=== PATIENT | male | born 1950 | race Caucasian/White ===

== ENCOUNTER 2024-02-03 02:43 | Emergency (ER) | payer MEDICARE, SELFPAY ==
[2024-02-03 02:49] VITALS: BP 176/97; PULSE 85; RESP 20; TEMP 36.7; O2SAT 97
--- NOTE | 2024-02-03 03:00 | ED.NECK1 ---
HPI - Neck Pain/Injury General Chief Complaint: Neck Pain/Injury Stated Complaint: NECK PAIN Time Seen by Provider: 02/03/24 02:50 Source: patient Mode of arrival: walk-in History of Present Illness HPI Narrative: Patient woke with left sided neck pain 3 days ago and it has steadily been worsening ever since. No fall or injury. The pain got worse around 7pmlast night when he turned his head to the left. Pain is worse when he turns to that side. No relief with aspirin and Aleve use. No fever or chills. No cough. No UE tingling or radiation of pain. Related Data Home Medications Medication Instructions Recorded Confirmed hydrocortisone-acetic acid 1 %-2 % drp otic (ear) 02/03/24 ear drops irbesartan 300 mg tablet mg 02/03/24 pantoprazole 40 mg tablet,delayed mg PO 02/03/24 release pravastatin 40 mg tablet mg 02/03/24 tamsulosin 0.4 mg capsule mg PO 02/03/24 temazepam 15 mg capsule mg 02/03/24 Previous Rx's Medication Instructions Recorded methocarbamol 750 mg tablet 750 mg PO Q6H PRN pain #30 tabs 02/03/24 methylprednisolone 4 mg tablets in 4 mg PO DAILY #21 ea 02/03/24 a dose pack (Medrol (Paras)) Allergies Allergy/AdvReac Type Severity Reaction Status Date / Time Sulfa (Sulfonamide Allergy Unknown Verified 02/03/24 02:49 Antibiotics) [facility] Social History Smoking status: Former smoker Exam Narrative Exam Narrative: Nurses notes and vital signs reviewed and patient is not hypoxic. afebrile General: Well-appearing and in no apparent distress. Skin: Warm, dry, no pallor noted. No rash. Head: Normocephalic, atraumatic. Neck: Supple, no cervical lymphadenopathy. Soft tissue tenderness to the left posterolateral neck. Pain is worse with the patient turns to the left Cardiovascular: Regular Rate and Rhythm without murmur, gallop or rub. Respiratory: No accessory muscle use or respiratory distress. Lungs are clear to auscultation, no wheezing, rales or rhonchi Back: No midline thoracic vertebral tenderness. Musculoskeletal: normal ROM Neurological: A&O x4. No cranial nerve dysfunction observed. No truncal ataxia. Moves all extremities. Sensation intact. Psychiatric: Cooperative and interactive. Normal mood and affect. Constitutional Vital Signs, click to edit/add: Last Vital Signs Temp 98.1 F 02/03/24 02:49 Pulse 85 02/03/24 02:49 Resp 20 02/03/24 02:49 BP 176/97 H 02/03/24 02:49 Pulse Ox 97 02/03/24 02:49 O2 Del Method Room Air 02/03/24 02:49 Course Vital Signs Vital signs: Vital Signs Temperature 98.1 F 02/03/24 02:49 Pulse Rate 85 02/03/24 02:49 Respiratory Rate 20 02/03/24 02:49 Blood Pressure 176/97 H 02/03/24 02:49 Pulse Oximetry 97 02/03/24 02:49 Oxygen Delivery Method Room Air 02/03/24 02:49 Temperature 98.1 F 02/03/24 02:49 Pulse Rate 85 02/03/24 02:49 Respiratory Rate 20 02/03/24 02:49 Blood Pressure 176/97 H 02/03/24 02:49 Pulse Oximetry 97 02/03/24 02:49 Oxygen Delivery Method Room Air 02/03/24 02:49 MDM - Neck Pain/Injury MDM Narrative Medical decision making narrative: patient has torticolis. Patient given IM Solumedrol and IM Toradol. Discharged home with prescription for Medrol dose pack and Robaxin. Discharge Plan Discharge Stand Alone Forms: Portal Instructions Chief Complaint: Neck Pain/Injury Clinical Impression: Acute torticollis Patient Disposition: Home, Self-Care Time of Disposition Decision: 03:04 Prescriptions / Home Meds: New methylprednisolone [Medrol (Paras)] 4 mg tablets,dose pack 4 mg PO DAILY Qty: 21 0RF Rx Instructions: follow dosing instructions on packaging methocarbamol 750 mg tablet 750 mg PO Q6H PRN (Reason: pain) Qty: 30 0RF No Action pravastatin 40 mg tablet tamsulosin 0.4 mg capsule PO pantoprazole 40 mg tablet,delayed release (DR/EC) PO irbesartan 300 mg tablet temazepam 15 mg capsule hydrocortisone-acetic acid 1-2 % drops OTIC (EAR) Instructions: Spasmodic Torticollis (ED)
[2024-02-03] MEDS: METHYLPREDNISOLONE SOD SUCC PF 125 MG/2 ML VIAL IM (03:38)
[2024-02-03] MEDS: KETOROLAC TROMETHAMINE 60 MG/2 ML VIAL IM (03:38)
== END 2024-02-03 03:45 | disposition home or self-care (01) ==
LOC: ER 03:11
PROVIDERS: Emergency Provider Emergency Medicine; PCP Family Medicine
DX: M43.6 Torticollis (principal); Z79.899 Other long term (current) drug therapy; Z87.891 Personal history of nicotine dependence
CPT/HCPCS: 96372; 99284; J2930

== ENCOUNTER 2024-02-28 13:50 | Outpatient (REF) | payer MEDICARE, SELFPAY | END 2024-02-28 13:51 | disposition home or self-care (01) | LOC: LAB 13:50 | PROVIDERS: PCP Family Medicine; Visit Provider Surgery | DX: C44.219 Basal cell carcinoma of skin of left ear and external auricular canal (principal) | CPT/HCPCS: 88305 ==

== ENCOUNTER 2024-03-01 11:56 | Outpatient (OUT) | payer MEDICARE, SELFPAY ==
--- NOTE | 2024-03-01 12:06 | XR_ITS ---
The [address] [address] Patient Name: RANJIT CORTÉS MRN: [id number] date: 1950 Sex: M Assigned Patient Location: LAB Current Patient Location: Accession/Order Number: [id number] Exam Date: 03/01/2024 12:10 Report Date: 03/02/2024 07:25 At the request of: TESS FUENTES Procedure: XR cervical spine 2-3V EXAMINATION: XR cervical spine 2-3V HISTORY: Impingement syndrome of left shoulder M75.42 ; left side cervical pain COMPARISON: No relevant comparison available. FINDINGS: BONES: Moderate degenerative facet arthropathy throughout the cervical spine, left side slightly greater than right. No fracture or spondylolisthesis. DISC SPACES: Moderate-marked narrowing C5-6, C6-7. Posterior disc osteophyte complex at C5-6 likely causing foramen and central canal narrowing. PARASPINOUS: Negative. No paraspinous abnormality is seen. OTHER: Negative. XR/XR cervical spine 2-3V IMPRESSION: 1. Moderate to marked degenerative changes of cervical spine. 2. No appreciable acute abnormality. Electronically authenticated by: SOL HAINES Date: 03/02/2024 07:25
[2024-03-01 12:32] LABS: Anion Gap 14.4; Calcium 9.6 mg/dL (8.5-10.1); Carbon Dioxide 27.2 mmol/L (21.0-32.0); Chloride 105 mmol/L (98-107); Estimated GFR (African America 52 (>=60); Estimated GFR (Non-African Ame 43 (>=60); Glucose 99 mg/dL (74-106); Potassium 4.6 mmol/L (3.5-5.1); Sodium 142 mmol/L (136-145)
== END 2024-03-01 11:57 | disposition home or self-care (01) ==
LOC: LAB 11:57
PROVIDERS: PCP Family Medicine; Visit Provider Family Medicine
DX: M75.42 Impingement syndrome of left shoulder (principal); N18.2 Chronic kidney disease, stage 2 (mild); M50.30 Other cervical disc degeneration, unspecified cervical region
CPT/HCPCS: 36415; 72040; 80048

== ENCOUNTER 2024-03-05 10:15 | Outpatient (OUT) | payer MEDICARE, SELFPAY ==
--- NOTE | 2024-03-05 10:18 | US_ITS ---
[address] [address] Patient Name: RANJIT CORTÉS MRN: [id number] date: 1950 Sex: M Assigned Patient Location: US Current Patient Location: US Accession/Order Number: [id number] Exam Date: 03/05/2024 10:19 Report Date: 03/05/2024 10:48 At the request of: TESS FUENTES Procedure: US renal bladder EXAMINATION: US renal bladder HISTORY: Blood In Urine R31.9 COMPARISON: No relevant comparison available. TECHNIQUE: Ultrasound examination was performed of the bladder. FINDINGS: Right Kidney: Normal in size, contour and cortical echotexture. No solid cortical mass, hydronephrosis or obstructing nephrolithiasis. The cortex measures 1.3 cm. Height: 5.3 cm Length: 11.3 cm Width: 6.8 cm Left Kidney: Normal in size, contour and cortical echotexture. No solid cortical mass, hydronephrosis or obstructing nephrolithiasis. The cortex measures 1.0 cm Height: 5.2 cm Length: 10.5 cm Width: 4.5 cm Urinary bladder: Prevoid volume 294 mL. Post void volume 2 mL Ureteral jets: Visualized bilaterally US/US renal bladder IMPRESSION: No acute abnormality. No explanation for the patient's hematuria Electronically authenticated by: JONAH GERMAN Date: 03/05/2024 10:48
== END 2024-03-05 10:16 | disposition home or self-care (01) ==
LOC: US 10:15
PROVIDERS: PCP Family Medicine; Visit Provider Family Medicine
DX: R31.9 Hematuria, unspecified (principal)
CPT/HCPCS: 76770

== ENCOUNTER 2024-03-06 08:10 | Outpatient (OUT) | payer MEDICARE, SELFPAY ==
--- NOTE | 2024-03-06 08:17 | MR_ITS ---
[address] [address] Patient Name: RANJIT CORTÉS MRN: [id number] date: 1950 Sex: M Assigned Patient Location: MRI Current Patient Location: MRI Accession/Order Number: [id number] Exam Date: 03/06/2024 08:50 Report Date: 03/06/2024 14:24 At the request of: TESS FUENTES Procedure: MR cervical spine wo con EXAMINATION: MR cervical spine wo con HISTORY: Abnormal Finding On Diagnotic Imaging R93.89 COMPARISON: Plain x-ray TECHNIQUE: A variety of imaging planes and parameters were utilized for visualization of suspected pathology. FINDINGS: Limited exam. Alternate coil was used due to patient claustrophobia CRANIOCERVICAL AREA: Normal foramen magnum with no Chiari malformation. PARASPINAL AREA: Normal with no visible mass. BONES: Normal alignment with no acute fracture or spondylolisthesis. Mild to moderate diffuse degenerative spondylosis. No bone edema CORD: Normal caliber, contour, and signal intensity. CERVICAL DISC LEVELS: C2-C3: No significant disc/facet abnormality, spinal stenosis, or foraminal stenosis. C3-C4: Disc desiccation. Mild to moderate disc/osteophyte complex. No central canal or right foraminal stenosis. Mild narrowing of the left neural foramen C4-C5: Disc space narrowing. Disc/osteophyte complex most significant in the left neural foramen. Facet osteophyte arthropathy. No central or foraminal stenosis C5-C6: Moderate disc space narrowing. Moderate disc/osteophyte complex and facet osteoarthropathy. No central canal stenosis. Moderate to severe right and moderate left foraminal stenosis C6-C7: Moderate disc space narrowing. Moderate disc/osteophyte complex and facet osteoarthropathy. Narrowing of the central canal to 7.6 mm. Moderate bilateral foraminal stenosis C7-T1:. Early degenerative disc disease is present without focal protrusion or neural impingement. MR/MR cervical spine wo con IMPRESSION: Degenerative changes most significant at C5-6 and C6-C7 where there is central and foraminal stenosis as detailed above Electronically authenticated by: JONAH GERMAN Date: 03/06/2024 14:24
== END 2024-03-06 08:11 | disposition home or self-care (01) ==
LOC: MRI 08:10
PROVIDERS: PCP Family Medicine; Visit Provider Family Medicine
DX: R93.89 Abnormal findings on diagnostic imaging of other specified body structures (principal)
CPT/HCPCS: 72141

== ENCOUNTER 2024-03-07 10:44 | Outpatient (OUT) | payer MEDICARE, SELFPAY ==
[2024-03-07 11:27] LABS: Bilirubin Urine NEGATIVE (NEGATIVE); Blood Urine TRACE-I (NEGATIVE); Clarity Urine CLEAR (CLEAR); Color Urine YELLOW (YELLOW); Glucose Urine UA NEGATIVE (NEGATIVE); Ketones Urine NEGATIVE (NEGATIVE); Leukocyte Esterase Urine NEGATIVE (NEGATIVE); Nitrite Urine NEGATIVE (NEGATIVE); Protein Urine NEGATIVE (NEG/TRACE); Urobilinogen Urine 0.2 EU/dL (0.2-1.0)
== END 2024-03-07 10:45 | disposition home or self-care (01) ==
LOC: LAB 10:46
PROVIDERS: PCP Family Medicine; Visit Provider Family Medicine
DX: R31.9 Hematuria, unspecified (principal)
CPT/HCPCS: 81003

== ENCOUNTER 2024-03-09 06:55 | Outpatient (RCR) | payer MEDICARE, SELFPAY | END 2024-04-12 16:45 | disposition home or self-care (01) | LOC: PT 06:55 | PROVIDERS: PCP Family Medicine; Visit Provider Family Medicine | DX: R93.89 Abnormal findings on diagnostic imaging of other specified body structures (principal); R29.3 Abnormal posture | CPT/HCPCS: 97012; 97161 ==

== ENCOUNTER 2024-04-11 07:07 | Outpatient (OUT) | payer MEDICARE, SELFPAY ==
--- OUTSIDE RECORDS SUMMARY | 2024-04-11 07:11 | XMS_ITS | CCD ---
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 Immunizations Vaccine Date Status influenza virus vaccine, inactivated 08/2023 Recorded SARS-CoV-2 (COVID-19) mRNAMUL.ORD![id number] 09/24/2022 Recorded influenza virus vaccine, inactivated 08/31/2022 Recorded SARSCoV2 mRNA([id number]) vac 03/29/2022 Recorded SARS-CoV-2 (COVID-19) Ad26 vaccine 09/2021 Recorded SARS-CoV-2 (COVID-19) mRNA-1273 vaccine 09/13/2021 Recorded SARS-CoV-2 (COVID-19) Ad26 vaccine 02/2021 Recorded SARS-CoV-2 (COVID-19) mRNA-1273 vaccine 02/04/2021 Recorded SARS-CoV-2 (COVID-19) Ad26 vaccine 01/2021 Recorded SARS-CoV-2 (COVID-19) mRNA-1273 vaccine 01/07/2021 Recorded influenza virus vaccine, inactivated 09/03/2020 Recorded influenza virus vaccine, inactivated 09/04/2019 Recorded influenza virus vaccine, inactivated 08/22/2018 Recorded influenza virus vaccine, inactivated 08/24/2017 Recorded pneumococcal 23-valent vaccine 08/21/2017 Recorded pneumococcal 23-valent vaccine 08/01/2017 Recorded pneumococcal 23-valent vaccine 06/27/2017 Recorded influenza virus vaccine, inactivated 09/09/2016 Recorded [facility] Comment on above: Result Comment: Elec tronically Signed By: EVETTE RILEY, Obey Castañeda\.br\Date and Time Signed: 03/12/24 07:55 EDT Ambulatory Visit Summaryon 0 03-06-2024 Ambulatory Visit Summary LÓPEZ CORTÉS :1950 Visit Date:03/06/2024 Ambulatory Visit Instructions Your Care Team Attending Physician - EVETTE RILEY, Obey Castañeda Primary Care Physician - Tess Fuentes MD This Is Your Medications List irbesartan (irbesartan 300 mg Tab) pantoprazole (Pantoprazole [address] Tab) pravastatin (pravastatin 40 mg Tab) tadalafil (tadalafil 10 mg Tab) temazepam (temazepam 15 mg Cap) Procedures Performed Arthroscopic knee operation (04/26/2019), Colonoscopy (2016), Arthroplasty of knee, Arthroscopy, shoulder, surgical; with rotator cuff repair, Cholecystectomy;, hemorrhoidectomy, Meniscal repair, Revision of knee arthroplasty, Tendon sheath incision (eg, for trigger finger). Medications What How Much When Instructions Unchanged irbesartan (irbesartan 300 mg Tab) 1 Tablets By Mouth Every day Unchanged pantoprazole (Pantoprazole [address] Tab) 1 Tablets By Mouth Every day Unchanged pravastatin (pravastatin 40 mg Tab) 1 Tablets By Mouth Every day Unchanged tadalafil (tadalafil 10 mg Tab) See instructions Take as needed for sex Unchanged temazepam (temazepam 15 mg Cap) By Mouth Once a day (at bedtime) Allergies sulfamethoxazole (Unknown) Problems Ongoing - Any problem that you are currently receiving treatment for. 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 Cellulitis 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 Injury of kidney Lower back pain Skin foreign body Subconjunctival hemorrhage Patient Survey You may receive a survey via text or e-mail asking about your office visit. Please share your experience with us by completing your survey. We appreciate your feedback and thank you for choosing us for your care. [facility] Pathology Noteon 03-02-2024 Pathology Note [id number]#[id number] [facility] Ambulatory Visit Summaryon 0 02-28-2024 Ambulatory Visit Summary LÓPEZ CORTÉS :1950 Visit Date:02/28/2024 Ambulatory Visit Instructions Your Care Team Attending Physician - EVETTE RILEY, Obey Castañeda Primary Care Physician - Tess Fuentes MD This Is Your Medications List irbesartan (irbesartan 300 mg Tab) pantoprazole (Pantoprazole [address] Tab) pravastatin (pravastatin 40 mg Tab) tadalafil (tadalafil 10 mg Tab) temazepam (temazepam 15 mg Cap) Procedures Performed Arthroscopic knee operation (04/26/2019), Colonoscopy (2016), Arthroplasty of knee, Arthroscopy, shoulder, surgical; with rotator cuff repair, Cholecystectomy;, hemorrhoidectomy, Meniscal repair, Revision of knee arthroplasty, Tendon sheath incision (eg, for trigger finger). What to do next Scheduled Follow-Up Appointments Tuesday 2:40 PM EDT With: EVETTE RILEY, Obey Castañeda Where: General Surgery Evette/Carina Orell[facility] General Surgery Office/Clini c Noteon 02-28-2024 General Surgery Office/Clinic Note Chief Complaint in-office excisional biopsy HPI Staff Presents for in-office excisional biopsy left ear. History of Present Illness here for excisional biopsy of nonhealing left ear lesion; scab came off today, still irritated; no bleeding. Review of Systems ROS - Provider Constitutional: no fever, no sweats, no weight loss. Eyes: no glasses, no blurred vision, no visual loss. ENMT: no dentures, no hoarseness, no swallowing difficulties, no hearing loss, no ear infection(s), no nose bleeds. Cardiovascular: normal blood pressure, no chest pain, regular heartbeat, no heart murmur. Respiratory: no shortness of breath, no cough, no asthma, no wheezing. Gastrointestinal: no nausea, no vomiting, no diarrhea, no constipation, no blood in stool, no change in bowel habits, no abdominal pain, no hepatitis. Genitourinary: no kidney stones, no urine infection, no dysuria. Musculoskeletal: no pain, no weakness. Skin: no changing moles, no rash, yes skin lumps. Neurologic: no seizures, no epilepsy, no headache. Psychiatric: no emotional or psychiatric problem. Heme/Lymph: no bleeding problems, no anemia, no blood clots, no transfusions. Allergy/Immunologic: no swollen lymph nodes/glands, no IV drug abuse. Other: Additional ROS info: Except as noted in the above Review of Systems and in the History of Present Illness, all other systems have been reviewed and are negative or noncontributory. Physical Exam left ear with 5 mm oblong area of raised, scaly skin, no ulceration or bleeding. Procedure patient brought to the procedure room, placed in supine position, area prepped and draped in sterile fashion; anesthetized with 1/2 % Marcaine ; lesion excised in elliptical fashion down to subcutaneous fat; closed with interrupted 5-0 nylon sutures; tolerated well; ebl < 3 ml; sterile dressing applied. Assessment/Plan 1. 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 Follow-up No qualifying data available Problem List/Past Medical History Ongoing Arthritis Atrophic testicle Barretts esophagus BMI 36.0-36.9,adult BPH (benign prostatic hyperplasia) Chronic kidney disease COPD, mild ED (erectile dysfunction) GERD (gastroesophageal reflux disease) Glaucoma Hypercholesteremia Hypertension Insomnia Left renal mass Migraine Morbid obesity Neoplasm of uncertain behavior of skin of ear Nocturia Osteoarthritis Peripheral neuropathy Renal hematoma, left SCC (squamous cell carcinoma), hand Historical Cellulitis 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 Injury of kidney Lower back pain Skin foreign body Subconjunctival hemorrhage Procedure/Surgical History Arthroscopic knee operation (04/26/2019), Colonoscopy (2015), Arthroplasty of knee, Arthroscopy, shoulder, surgical; with rotator cuff repair, Cholecystectomy;, hemorrhoidectomy, Meniscal repair, Revision of knee arthroplasty, Tendon sheath incision (eg, for trigger finger). Medications irbesartan 300 mg Tab, 300 mg= 1 tab(s), Oral, Daily Pantoprazole [address] Tab, 40 mg= 1 tab(s), Oral, Daily, 3 refills pravastatin 40 mg Tab, 40 mg= 1 tab(s), Oral, Daily tadalafil 10 mg Tab, See Instructions, PRN, 5 refills temazepam 15 mg Cap, Oral, Once a day (at bedtime) Allergies sulfamethoxazole (Unknown) Social History Alcohol - Denies Alcohol Use, 01/31/2024 Substance Abuse - Denies Substance Abuse, 01/31/2024 Tobacco Former smoker, quit more than 30 days ago Tobacco Use:. Never Smokeless Tobacco Use:. Cigarettes, 1 per day. Started age 19.0 Years. Stopped age 31 Years., 01/31/2024 Family History CVA: Mother. Immunizations Vaccine Date Status influenza virus vaccine, inactivated 08/2023 Recorded SARS-CoV-2 (COVID-19) [id number].ORD![id number] 09/24/2022 Recorded influenza virus vaccine, inactivated 08/31/2022 Recorded SARSCoV2 mRNA(gsfazfaqn-gnba-jghzak) vac 03/29/2022 Recorded SARS-CoV-2 (COVID-19) Ad26 vaccine 09/2021 Recorded SARS-CoV-2 (COVID-19) mRNA-1273 vaccine 09/13/2021 Recorded SARS-CoV-2 (COVID-19) Ad26 vaccine 02/2021 Recorded SARS-CoV-2 (COVID-19) mRNA-1273 vaccine 02/04/2021 Recorded SARS-CoV-2 (COVID-19) Ad26 vaccine 01/2021 Recorded SARS-CoV-2 (COVID-19) mRNA-1273 vaccine 01/07/2021 Recorded influenza virus vaccine, inactivated 09/03/2020 Recorded influenza virus vaccine, inactivated 09/04/2019 Recorded influenza virus vaccine, inactivated 08/22/2018 Recorded influenza virus vaccine, inactivated 08/24/2017 Recorded pneumococcal 23-valent vaccine 08/21/2017 Recorded pneumococcal 23-valent vaccine 08/01/2017 Recorded pneumococcal 23-valent vaccine 06/27/2017 Recorded influenza virus vaccine, inactivated 09/09/2016 Recorded [facility] Comment on above: Result Comment: Elec tronically Signed By: EVETTE RILEY, Obey Castañeda\.br\Date and Time Signed: 02/28/24 14:02 EDT Ambulatory Visit Summaryon 0 01-31-2024 Ambulatory Visit Summary PROSPER CORTÉSSyd Moreno :1950 Visit Date:01/31/2024 Ambulatory Visit Instructions Your Care Team Attending Physician - Obey ALAS MD Primary Care Physician - Tess Fuentes MD Referring Physician - Tess Fuentes MD This Is Your Medications List Contact prescribing physician if questions or concerns irbesartan (irbesartan 300 mg Tab) pantoprazole (Pantoprazole [address] Tab) pravastatin (pravastatin 40 mg Tab) tadalafil (tadalafil 10 mg Tab) temazepam (temazepam 15 mg Cap) Procedures Performed Arthroscopic knee operation (04/26/2019), Colonoscopy (2015), Arthroplasty of knee, Arthroscopy, shoulder, surgical; with rotator cuff repair, Cholecystectomy;, hemorrhoidectomy, Meniscal repair, Revision of knee arthroplasty, Tendon sheath incision (eg, for trigger finger). Discharge Vitals Heart Rate (Peripheral) 83 Respiratory Rate 16 Blood Pressure 120/82 Height 172 cm Height 68 in Weight 106.9 kg Weight 235.18 lb BMI 36.13 Medications What How Much When Instructions Unchanged irbesartan (irbesartan 300 mg Tab) 1 Tablets By Mouth Every day Contact prescribing physician if questions or concerns Unchanged pantoprazole (Pantoprazole [address] Tab) 1 Tablets By Mouth Every day Contact prescribing physician if questions or concerns Unchanged pravastatin (pravastatin 40 mg Tab) 1 Tablets By Mouth Every day Contact prescribing physician if questions or concerns Unchanged tadalafil (tadalafil 10 mg Tab) See instructions Take as needed for sex Contact prescribing physician if questions or concerns Unchanged temazepam (temazepam 15 mg Cap) By Mouth Once a day (at bedtime) Contact prescribing physician if questions or concerns Allergies sulfamethoxazole (Unknown) Problems Ongoing - Any problem that you are currently receiving treatment for. Arthritis Atrophic testicle Barretts esophagus BMI 36.0-36.9,adult BPH (benign prostatic hyperplasia) Chronic kidney disease COPD, mild ED (erectile dysfunction) GERD (gastroesophageal reflux disease) Glaucoma Hypercholesteremia Hypertension Insomnia Left renal mass Migraine Morbid obesity Nocturia Osteoarthritis Peripheral neuropathy Renal hematoma, left SCC (squamous cell carcinoma), hand Historical - Any problem that you are no longer receiving treatment for. Cellulitis 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 Injury of kidney Lower back pain Skin foreign body Subconjunctival hemorrhage Patient Survey You may receive a survey via text or e-mail asking about your office visit. Please share your experience with us by completing your survey. We appreciate your feedback and thank you for choosing us for your care. [facility] Physician Referralon 024 Physician Referral [id number]#[id number] [facility] Physician Referralon 024 Physician Referral [id number]#[id number] [facility] Screenson 05-17-2023 Screens [id number]:127 [facility] Ambulatory Visit Summaryon 0 05-16-2023 Ambulatory Visit Summary LÓPEZ CORTÉS :1950 Visit Date:05/16/2023 Ambulatory Visit Instructions Your Diagnosis Left renal mass Atrophic testicle ED (erectile dysfunction) BPH (benign prostatic hyperplasia) Your Care Team Attending Physician - Darwin RICHMOND MD Primary Care Physician - Tess Fuentes MD This Is Your Medications List Contact prescribing physician if questions or concerns aspirin doxazosin (doxazosin 4 mg oral tablet) lisinopril (lisinopril 10 mg Tab) pantoprazole (Pantoprazole [address] Tab) pravastatin (pravastatin 40 mg Tab) sumatriptan tadalafil (tadalafil 10 mg Tab) temazepam (temazepam 15 mg Cap) Procedures Performed Arthroscopy, shoulder, surgical; with rotator cuff repair, Cholecystectomy;, hemorrhoidectomy, Repair of knee joint, Tendon sheath incision (eg, for trigger finger). Discharge Vitals Heart Rate (Peripheral) 75 Respiratory Rate 16 Blood Pressure 129/75 Height 172 cm Height 68 in Weight 104.7 kg Weight 230.34 lb BMI 35.39 What to do next You Need to Schedule the Following Appointments Follow Up with ISABEL RILEY, Darwin Moreno, JOSELYN When: Where: [facility] [employer] [address] [place] [address] [id number]- Medications What How Much When Instructions Unchanged aspirin 81 Milligram By Mouth Every day Contact prescribing physician if questions or concerns Unchanged doxazosin (doxazosin 4 mg oral tablet) 1 Tablets By Mouth Every day Contact prescribing physician if questions or concerns Unchanged lisinopril (lisinopril 10 mg Tab) By Mouth Every day Contact prescribing physician if questions or concerns Unchanged pantoprazole (Pantoprazole [address] Tab) 1 Tablets By Mouth Every day Contact prescribing physician if questions or concerns Unchanged pravastatin (pravastatin 40 mg Tab) 1 Tablets By Mouth Every day Contact prescribing physician if questions or concerns Unchanged sumatriptan 100 Milligram By Mouth Contact prescribing physician if questions or concerns Unchanged tadalafil (tadalafil 10 mg Tab) See instructions Take as needed for sex Contact prescribing physician if questions or concerns Unchanged temazepam (temazepam 15 mg Cap) By Mouth Once a day (at bedtime) Contact prescribing physician if questions or concerns Allergies penicillin (Rash) sulfamethoxazole (Unknown) Problems Ongoing - Any problem that you are currently receiving treatment for. Arthritis Atrophic testicle Barretts esophagus BMI 32.0-32.9,adult BPH (benign prostatic hyperplasia) Cellulitis COPD, mild ED (erectile dysfunction) 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 GERD (gastroesophageal reflux disease) Glaucoma Hypercholesteremia Hypertension Injury of kidney Left renal mass Lower back pain Migraine Nocturia Osteoarthritis Renal hematoma, left SCC (squamous cell carcinoma), hand Subconjunctival hemorrhage Historical - Any problem that you are no longer receiving treatment for. Skin foreign body [employer] Erectile Dysfunction Erectile dysfunction (ED) is the inability to get or keep an erection in order to have sexual intercourse. ED is considered a symptom of an underlying disorder and is not considered a disease. ED may include: ? Inability to get an erection. ? Lack of enough hardness of the erection to allow penetration. ? Loss of erection before sex is finished. What are the causes? This condition may be caused by: ? Physical causes, such as: ? Artery problems. This may include heart disease, high blood pressure, atherosclerosis, and diabetes. ? Hormonal problems, such as low testosterone. ? Obesity. ? Nerve problems. This may include back or pelvic injuries, multiple sclerosis, Parkinson's disease, spinal cord injury, and stroke. ? Certain medicines, such as: ? Pain relievers. ? Antidepressants. ? Blood pressure medicines and water pills (diuretics). ? Cancer medicines. ? Antihistamines. ? Muscle relaxants. ? Lifestyle factors, such as: ? Use of drugs such as marijuana, cocaine, or opioids. ? Excessive use of alcohol. ? Smoking. ? Lack of physical activity or exercise. ? Psychological causes, such as: ? Anxiety or stress. ? Sadness or depression. ? Exhaustion. ? Fear about sexual performance. ? Guilt. What are the signs or symptoms? Symptoms of this condition include: ? Inability to get an erection. ? Lack of enough hardness of the erection to allow penetration. ? Loss of the erection before sex is finished. ? Sometimes having normal erections, but with frequent unsatisfactory episodes. ? Low sexual satisfaction in either partner due to erection problems. ? A curved penis occurring with erection. The curve may cause pain, or the penis may be too curved to allow for intercourse. ? Never having nighttime or morning erections. How is this diagnosed? This condition is ofte (more content not included)... [facility] Patient Educationon 05-16-20 Patient Education Urology Erectile Dysfunction Erectile dysfunction (ED) is the inability to get or keep an erection in order to have sexual intercourse. ED is considered a symptom of an underlying disorder and is not considered a disease. ED may include: ? Inability to get an erection. ? Lack of enough hardness of the erection to allow penetration. ? Loss of erection before sex is finished. What are the causes? This condition may be caused by: ? Physical causes, such as: ? Artery problems. This may include heart disease, high blood pressure, atherosclerosis, and diabetes. ? Hormonal problems, such as low testosterone. ? Obesity. ? Nerve problems. This may include back or pelvic injuries, multiple sclerosis, Parkinson's disease, spinal cord injury, and stroke. ? Certain medicines, such as: ? Pain relievers. ? Antidepressants. ? Blood pressure medicines and water pills (diuretics). ? Cancer medicines. ? Antihistamines. ? Muscle relaxants. ? Lifestyle factors, such as: ? Use of drugs such as marijuana, cocaine, or opioids. ? Excessive use of alcohol. ? Smoking. ? Lack of physical activity or exercise. ? Psychological causes, such as: ? Anxiety or stress. ? Sadness or depression. ? Exhaustion. ? Fear about sexual performance. ? Guilt. What are the signs or symptoms? Symptoms of this condition include: ? Inability to get an erection. ? Lack of enough hardness of the erection to allow penetration. ? Loss of the erection before sex is finished. ? Sometimes having normal erections, but with frequent unsatisfactory episodes. ? Low sexual satisfaction in either partner due to erection problems. ? A curved penis occurring with erection. The curve may cause pain, or the penis may be too curved to allow for intercourse. ? Never having nighttime or morning erections. How is this diagnosed? This condition is often diagnosed by: ? Performing a physical exam to find other diseases or specific problems with the penis. ? Asking you detailed questions about the problem. ? Doing tests, such as: ? Blood tests to check for diabetes mellitus or high cholesterol, or to measure hormone levels. ? Other tests to check for underlying health conditions. ? An ultrasound exam to check for scarring. ? A test to check blood flow to the penis. ? Doing a sleep study at home to measure nighttime erections. How is this treated? This condition may be treated by: ? Medicines, such as: ? Medicine taken by mouth to help you achieve an erection (oral medicine). ? Hormone replacement therapy to replace low testosterone levels. ? Medicine that is injected into the penis. Your health care provider may instruct you how to give yourself these injections at home. ? Medicine that is delivered with a short applicator tube. The tube is inserted into the opening at the tip of the penis, which is the opening of the urethra. A tiny pellet of medicine is put in the urethra. The pellet dissolves and enhances erectile function. This is also called MUSE (medicated urethral system for erections) therapy. ? Vacuum pump. This is a pump with a ring on it. The pump and ring are placed on the penis and used to create pressure that helps the penis become erect. ? Penile implant surgery. In this procedure, you may receive: ? An inflatable implant. This consists of cylinders, a pump, and a reservoir. The cylinders can be inflated with a fluid that helps to create an erection, and they can be deflated after intercourse. ? A semi-rigid implant. This consists of two silicone rubber rods. The rods provide some rigidity. They are also flexible, so the penis can both curve downward in its normal position and become straight for sexual intercourse. ? Blood vessel surgery to improve blood flow to the penis. During this procedure, a blood vessel from a different part of the body is placed into the penis to allow blood to flow around (bypass) damaged or blocked blood vessels. ? Lifestyle changes, such as exercising more, losing weight, and quitting smoking. Follow these instructions at home: Medicines ? Take bynt-mya-kqrhosd and prescription medicines only as told by your health care provider. Do not increase the dosage without first discussing it with your health care provider. ? If you are using self-injections, do injections as directed by your health care provider. Make sure you avoid any veins that are on the surface of the penis. After giving an injection, apply pressure to the injection site for 5 minutes. ? Talk to your health care provider about how to prevent headaches while taking ED medicines. These medicines may cause a sudden headache due to the increase in blood flow in your body. General instructions ? Exercise regularly, as directed by your health care provider. Work with your health care provider to lose weight, if needed. ? Do not use any products that contain nicotine or tobacco. These products include cig (more content not included)... [facility] Urology Office/Clinic Noteon 05-16-2023 Urology Office/Clinic Note Chief Complaint Pt is here for yearly f/u HPI Staff 1 year follow up w/Renal US. Renal US DONE 01/12/23. Previous DX: BPH, ED, left renal mass, nocturia, renal hematoma-left. *Doxazosin 4mg qd. No Urological surgeries. Pt did not give urine sample today. Dysuria: No Incomplete bladder emptying: No Hematuria: No Frequency: No Urgency: No Nocturia: states he gets up 1-2 times per night - depends on how much water he drinks Stream: Good Post void dripping: mild at the end of his stream - he states very little History of Present Illness Tests reviewed: reviewed DEVON I have reviewed the previous health record information and history for this patient from Dr. Richmond. I have reviewed and verified the staff HPI to be accurate for this encounter. There have been no associated fever, chills, flank pain, or blood in the urine. Denies any urinary infections since last encounter. Review of Systems PHQ Score Initial Depression Screen Score: 0 ROS - Provider Constitutional: denies weight loss, denies hot flashes. Eyes: denies eye problems. Gastrointestinal: denies nausea, denies vomiting. Cardiovascular: denies chest pain or angina. Integumentary: no dryness Musculoskeletal: denies musculoskeletal symptoms. ENMT: denies otolaryngeal symptoms. Respiratory: no shortness of breath. Heme/Lymph: denies easy bleeding tendency, denies easy bruising tendency. Psychiatric: no confusion, no anxiety. Genitourinary: denies dysuria, denies hematuria, denies discharge, denies urinary frequency, denies urinary hesitancy, denies nocturia, denies incontinence, denies genital sores, denies decreased libido, and denies erectile dysfunction. Physical Exam Vitals & Measurements HR: 75(Peripheral) RR: 16 BP: 129/75 HT: 68 in HT: 172 cm WT: 104.7 kg WT: 230.34 lb BMI: 35.39 General Appearance: alert, no distress, well nourished, well developed male. Assessment/Plan 1. Left renal mass (N28.89: Other specified disorders of kidney and ureter) Pt's Renal US shows that area on Lt Kidney is smaller than it was in 2020. Most likely a hematoma due to fall. DEVON 01/13/23 - Negative. Follow up as needed. Pt understands and agrees with plan. 2. Atrophic testicle (N50.0: Atrophy of testis) Pt's Scrotal US shows Rt testicle that is smaller than Lt. Pt states he has no symptoms. 3. ED (erectile dysfunction) (N52.9: Male erectile dysfunction, unspecified) Pt states that ED medication is working well. Will continue Tadalafil 10mg PRN 4. BPH (benign prostatic hyperplasia) (N40.0: Benign prostatic hyperplasia without lower urinary tract symptoms) Pt is on Doxazosin 4mg qd from PCP due to HTN but it is helping with urinary issues. IPSS 3 No UA given today. Advised pt to call our office if he sees any visible blood in his urine. Pt understands. Overall the patient is doing well. He is seen no gross blood or clots in the urine. The previously noted abnormality in the left kidney has essentially disappeared. He most likely had a hematoma in the area from his fairly recent fall. He continues on tadalafil at 10 mg on a as needed basis. PCP manages his alpha blockers. At this point I feel he can see me on a as needed basis and knows to call for any gross blood or clots in the urine. Follow-up With When Contact Information ISABEL RILEY, Darwin Moreno, URL [address] [facility] [address] [place], [place] [id number]- Additional Instructions: PRN Patient Education Erectile Dysfunction I, Irena Thomas, personally scribed for Dr. Richmond on 05/16/2023 10:13:20. . Documentation recorded by the scribe, Irena Thomas, accurately reflects the services(s) I performed and decisions made by me. Authenticated by Dr. Richmond on 05/16/2023 10:49:01. 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 Medications aspirin, 81 mg, Oral, Daily doxazosin 4 mg oral tablet, 4 mg= 1 tab(s), Oral, Daily lisinopril 10 mg Tab, Oral, Daily Pantoprazole [address] Tab, 40 mg= 1 tab(s), Oral, Daily, 3 refills pravastatin 40 mg Tab, 40 mg= 1 tab(s), Oral, Daily sumatriptan, 100 mg, Oral tadalafil 10 mg Tab, See Instructions, PRN, 5 refills temazepam 15 mg Cap, Oral, Once a day (at bedtime) Allergies penicillin (Rash) samayoa (more content not included)... Normal [facility] Comment on above: Result Comment: Elec tronically Signed By: Darwin RICHMOND MD\.br\Date and Time Signed: 05/16/23 10:49 EDT\.br\Electronically Co-Signed By: Irena Thomas\.br\Date and Time Co-Signed: 05/16/23 10:13 EDT INSULINon 01-28-2023 Insulin 15.8 uIU/mL Normal 2.6-24.9 [facility] Comment on above: Performed By: #### I NSULIN #### [facility] [address] [address] [address] Braulio Fritz CBC AUTO DIFFon 01-27-2023 BASO # 0.0 103/ul Normal 0.0-0.1 [facility] Comment on above: Performed By: #### I NSULIN #### [facility] [address] [address] [address] Braulio Fritz Basophils/100 WBC (Bld) 0.5 % Normal 0.2-2.0 [facility] Comment on above: Performed By: #### I NSULIN #### [facility] [address] [place] [address] Dr. Braulio Fritz EO # 0.3 103/ul Normal 0.0-0.7 [facility] Comment on above: Performed By: #### I NSULIN #### [facility] [address] [place] [address] Dr. Braulio Fritz Eosinophils/100 WBC (Bld) 3.2 % Normal 0.9-7.0 [facility] Comment on above: Performed By: #### I NSULIN #### [facility] [address] [place] [address] Dr. Braulio Fritz Erythrocyte distribution width (RBC) [Ratio] 14.8 % Normal 11.0-15.0 [facility] Comment on above: Performed By: #### I NSULIN #### [facility] [address] [place] [address] Dr. Braulio Fritz Hematocrit (Bld) [Volume fraction] 48.1 % Normal 42.0-54.0 [facility] Comment on above: Performed By: #### I NSULIN #### [facility] [address] [place] [address] Dr. Braulio Fritz Hemoglobin (Bld) [Mass/Vol] 16.1 g/dL Normal 14.0-18.0 [facility] Comment on above: Performed By: #### I NSULIN #### [facility] [address] [place] [address] Dr. Braulio Fritz IG # 0.05 10e3/ul Critically high 0.00-0.03 [facility] Comment on above: Performed By: #### I NSULIN #### [facility] [address] [place] [address] Dr. Braulio Fritz IG % 0.6 % Critically high 0.0-0.5 [facility] Comment on above: Performed By: #### I NSULIN #### [facility] [address] [place] [address] Dr. Braulio Fritz LYMPH # 2.2 103/ul Normal 1.2-3.8 [facility] Comment on above: Performed By: #### I NSULIN #### [facility] [address] [address] [address] Braulio Fritz Lymphocytes/100 WBC (Bld) 25.7 % Normal 20.5-60.0 [facility] Comment on above: Performed By: #### I NSULIN #### [facility] [address] [place] [address] Dr. Braulio Fritz MANUAL DIFF REQ NO Normal [facility] Comment on above: Performed By: #### I NSULIN #### [facility] [address] [place] [address] Dr. Braulio Fritz MCH (RBC) [Entitic mass] 31.7 pg Normal 25.9-34.0 [facility] Comment on above: Performed By: #### I NSULIN #### [facility] [address] [place] [address] Dr. Braulio Fritz MCHC (RBC) [Mass/Vol] 33.5 g/dL Normal 29.9-35.2 [facility] Comment on above: Performed By: #### I NSULIN #### [facility] [address] [place] [address] Dr. Braulio Fritz MCV (RBC) [Entitic vol] 94.7 fL Critically high 80.0-94.0 [facility] Comment on above: Performed By: #### I NSULIN #### [facility] [address] [place] [address] Dr. Braulio Fritz MONO # 0.9 103/ul Critically high 0.3-0.8 [facility] Comment on above: Performed By: #### I NSULIN #### [facility] [address] [place] [address] Dr. Braulio Fritz Monocytes/100 WBC (Bld) 10.5 % Normal 1.7-12.0 [facility] Comment on above: Performed By: #### I NSULIN #### [facility] [address] [place] [address] Dr. Braulio Fritz NEUT # 5.1 103/ul Normal 1.4-6.5 [facility] Comment on above: Performed By: #### I NSULIN #### [facility] [address] [address] [address] Braulio Fritz Neutrophils/100 WBC (Bld) 59.5 % Normal 43.0-75.0 [facility] Comment on above: Performed By: #### I NSULIN #### [facility] [address] [address] [address] Braulio Fritz Platelet mean volume (Bld) [Entitic vol] 10.5 fL Normal 9.5-13.5 [facility] Comment on above: Performed By: #### I NSULIN #### [facility] [address] [address] [address] Braulio Fritz PLT 187 103/ul Normal 150-450 [facility] Comment on above: Performed By: #### I NSULIN #### [facility] [address] [place] [address] Dr. Braulio Fritz RBC 5.08 106/ul Normal 4.70-6.10 [facility] Comment on above: Performed By: #### I NSULIN #### [facility] [address] [place] [address] Dr. Braulio rFitz WBC 8.5 103/ul Normal 4.0-11.0 [facility] Comment on above: Performed By: #### I NSULIN #### [facility] [address] [place] [address] Dr. Braulio Fritz FREE THYROXINE INDEX T7on FTI 2.39 Normal 1.30-4.50 [facility] Comment on above: Performed By: #### I NSULIN #### [facility] [address] [place] [address] Dr. Braulio Fritz T3U 38.0 % Normal 33.0-40.0 [facility] Comment on above: Performed By: #### I NSULIN #### [facility] [address] [place] [address] Dr. Braulio Fritz T4 [Mass/Vol] 6.30 ug/dL Normal 4.50-12.10 [facility] Comment on above: Performed By: #### I NSULIN #### [facility] [address] [address] [address] Brualio Fritz GLYCOHEMOGLOBIN A1Con 2022 ADA RECOMMENDATION SEE BELOW Normal [facility] Comment on above: Result Comment: ADA RECOMMENDED LIMIT 4.0 - 6.0 ADA THERAPEUTIC TARGET < 7.0 ACTION SUGGESTED > 7.0 Performed By: #### A 1C #### [facility] [address] [place] [address] Dr. Braulio Fritz Glucose [Mass/Vol] 111 mg/dL Normal [facility] Comment on above: Performed By: #### A 1C #### [facility] [address] [place] [address] Dr. Braulio Fritz HbA1c (Bld) [Mass fraction] 5.5 % Normal 4.5-6.2 [facility] Comment on above: Performed By: #### A 1C #### [facility] [address] [place] [address] Dr. Braulio Fritz LIPID PROFILEon 01-27-2023 CHOL-HDL RATIO NORM SEE BELOW Normal [facility] Comment on above: Result Comment: 3.3 - 4.4 LOW RISK 4.4 - 7.1 AVERAGE RISK 7.1 - 11.0 MODERATE RISK >11.0 HIGH RISK Performed By: #### I NSULIN #### [facility] [address] [place] [address] Dr. Braulio Fritz Cholesterol [Mass/Vol] 162 mg/dL Normal <=200 [facility] Comment on above: Performed By: #### I NSULIN #### [facility] [address] [place] [address] Dr. Braulio Fritz Cholesterol in HDL [Mass/Vol] 48 mg/dL Normal 40-60 [facility] Comment on above: Performed By: #### I NSULIN #### [facility] [address] [place] [address] Dr. Braulio Fritz Cholesterol in LDL [Mass/Vol] 91.6 mg/dL Normal [facility] Comment on above: Performed By: #### I NSULIN #### [facility] [address] [place] [address] Dr. Braulio Fritz Cholesterol.total/C holesterol in HDL [Mass ratio] 3.4 {ratio} Normal [facility] Comment on above: Performed By: #### I NSULIN #### [facility] [address] [address] [address] Braulio Fritz HDL NORMAL > or = 60 mg/dl - LO W CARDIOVASCULAR RISK <40 mg/dl - HIGH CARDIOVASCULAR RISK Normal [facility] Comment on above: Performed By: #### I NSULIN #### [facility] [address] [address] [address] Braulio Fritz LDL CALC NORMAL SEE BELOW Normal [facility] Comment on above: Result Comment: <100 mg/dl OPTIMAL 100 - 129 mg/dl NEAR OR ABOVE OPTIMAL 130 - 159 mg/dl BORDERLINE HIGH 160 - 189 mg/dl HIGH >190 mg/dl VERY HIGH Performed By: #### I NSULIN #### [facility] [address] [place] [address] Dr. Braulio Fritz Triglyceride [Mass/Vol] 112 mg/dL Normal <=150 [facility] Comment on above: Performed By: #### I NSULIN #### [facility] [address] [address] [address] Braulio Fritz VLDL CALC 22.4 mg/dL Normal [facility] Comment on above: Performed By: #### I NSULIN #### [facility] [address] [place] [address] Dr. Braulio Fritz PROF 14(COMP METB)on 023 Albumin [Mass/Vol] 3.6 g/dL Normal 3.4-5.0 [facility] Comment on above: Performed By: #### I NSULIN #### [facility] [address] [place] [address] Dr. Braulio Fritz Albumin/Globulin [Mass ratio] 1.1 {ratio} Normal [facility] Comment on above: Performed By: #### I NSULIN #### [facility] [address] [place] [address] Dr. Braulio Fritz ALP [Catalytic activity/Vol] 111 U/L Normal 46-116 [facility] Comment on above: Performed By: #### I NSULIN #### [facility] [address] [address] [address] Braulio Fritz ALT [Catalytic activity/Vol] 31 U/L Normal 16-63 [facility] Comment on above: Performed By: #### I NSULIN #### [facility] [address] [address] [address] Braulio Fritz Anion gap [Moles/Vol] 12.6 mmol/L Normal [facility] Comment on above: Performed By: #### I NSULIN #### [facility] [address] [address] [address] Braulio Fritz AST [Catalytic activity/Vol] 23 U/L Normal 15-37 [facility] Comment on above: Performed By: #### I NSULIN #### [facility] [address] [place] [address] Dr. Braulio Fritz Bilirubin [Mass/Vol] 1.7 mg/dL Critically high 0.2-1.0 [facility] Comment on above: Performed By: #### I NSULIN #### [facility] [address] [place] [address] Dr. Braulio Fritz Calcium [Mass/Vol] 9.1 mg/dL Normal 8.5-10.1 [facility] Comment on above: Performed By: #### I NSULIN #### [facility] [address] [place] [address] Dr. Braulio Fritz Chloride [Moles/Vol] 107 mmol/L Normal 98-107 [facility] Comment on above: Performed By: #### I NSULIN #### [facility] [address] [place] [address] Dr. Braulio Fritz CO2 [Moles/Vol] 28.7 mmol/L Normal 21.0-32.0 [facility] Comment on above: Performed By: #### I NSULIN #### [facility] [address] [address] [address] Braulio Fritz Creatinine [Mass/Vol] 1.41 mg/dL Critically high 0.70-1.30 [facility] Comment on above: Performed By: #### I NSULIN #### [facility] [address] [address] [address] Braulio Fritz EGFR-AF CONGOLESE 60 mL/min/1.73m2 Normal >=60 [facility] Comment on above: Performed By: #### I NSULIN #### [facility] [address] [address] [address] Braluio Fritz EGFR-NON AF CONGOLESE 49 mL/min/1.73m2 Critically low >=60 [facility] Comment on above: Performed By: #### I NSULIN #### [facility] [address] [address] [address] Braulio Fritz Globulin (S) [Mass/Vol] 3.2 g/dL Normal [facility] Comment on above: Performed By: #### I NSULIN #### [facility] [address] [address] [address] Brauloi Fritz Glucose [Mass/Vol] 95 mg/dL Normal 74-106 [facility] Comment on above: Performed By: #### I NSULIN #### [facility] [address] [address] [address] Braulio Fritz Potassium [Moles/Vol] 4.3 mmol/L Normal 3.5-5.1 [facility] Comment on above: Performed By: #### I NSULIN #### [facility] [address] [address] [address] Braulio Fritz Protein [Mass/Vol] 6.8 g/dL Normal 6.4-8.2 [facility] Comment on above: Performed By: #### I NSULIN #### [facility] [address] [address] [address] Braulio Fritz Sodium [Moles/Vol] 144 mmol/L Normal 136-145 [facility] Comment on above: Performed By: #### I NSULIN #### [facility] [address] [address] [address] Braulio Fritz Urea nitrogen [Mass/Vol] 24.0 mg/dL Critically high 7.0-18.0 [facility] Comment on above: Performed By: #### I NSULIN #### [facility] [address] [place] [address] Dr. Braulio Fritz Urea nitrogen/Creatinine [Mass ratio] 17.0 mg/mg Normal [facility] Comment on above: Performed By: #### I NSULIN #### [facility] [address] [place] [address] Dr. Brualio Fritz SED RATE WESTERGRENon 2022 SED RATE 19 mm/hr Normal <=20 [facility] Comment on above: Performed By: #### I NSULIN #### [facility] [address] [place] [address] Dr. Braulio Fritz TSHon 01-27-2023 TSH 0.882 uIU/mL Normal 0.358-3.740 [facility] Comment on above: Performed By: #### I NSULIN #### [facility] [address] [place] [address] Dr. Braulio Fritz URIC ACID SERUMon 01-27-2023 Urate [Mass/Vol] 7.3 mg/dL Critically high 3.5-7.2 [facility] Comment on above: Performed By: #### I NSULIN #### [facility] [address] [place] [address] Dr. Braulio Fritz VITAMIN D 25 OHon 01-27-2023 VIT D 25-OH 44.5 ng/mL Normal [facility] Comment on above: Performed By: #### P SASC, VITAD #### [facility] [address] [place] [address] Dr. Braulio Fritz VIT D RANGES SEE BELOW Normal [facility] Comment on above: Result Comment: <20 ng/mL Vit D deficient 20 - <30 ng/mL Vit D insufficient 30 - 100 ng/mL Vit D sufficient >100 ng/mL Potential Toxicity Performed By: #### P SASC, VITAD #### [facility] [address] [place] [address] Dr. Braulio Fritz T4 LABCORPon 04-16-2022 T4 [Mass/Vol] 6.6 ug/dL Normal 4.5-12.0 [facility] Comment on above: Performed By: #### I NSULIN #### [facility] [id number] Braulio Fritz NM STRESS/REST MULTIon 04-15 NM STRESS/REST MULTI Patient: LÓEPZ CORTÉS Exam Date: 04/15/2022 : 1950 Gender:M Ordering : DR TESS FUENTES . Admission #: [id number] Family : Order #: [id number] CLICK HERE TO VIEW EXAM RADIOLOGY REPORT PROCEDURE: RADIONUCLIDE IMAGING STRESS/REST MULTI COMPARISON: NM STRESS/REST MULTI, 03/11/2021. INDICATIONS: Dyspnea TECHNIQUE: Exam Description: Stress/Rest one day protocol gated SPECT Rest Imagin.2 mCi Tc-99m Cardiolite IV on 04/15/2022 Stress Imaging 30.2 mCi Tc-99m Cardiolite IV on 04/15/2022 Exercise Protocol: Carlos Heart Rate (bpm): Rest: 73 Max: 131 PMHR: 87 Blood Pressure: Rest: 146/98 Max: 168/102 Exercise Time: Minutes: 5 Seconds: 17 Stage Reached: Stage: 2 Mets 7.0 Symptoms: shortness of breath Rest and peak stress ECG findings were normal and the exercise portion of the study was normal per attending physician Dr. Sweeney . For more details please see separate cardiac stress test report. FINDINGS: QUALITY OF STUDY: Excellent. PERFUSION DEFECT: None. LOCATION: N/A SIZE: N/A. SEVERITY: N/A. TYPE: N/A. WALL MOTION: Normal. LV SIZE: Normal. 86 mL. TID / TCD: None; 0.8 LVEF: Normal. Calculated EF 73%. SUMMARY: Myocardial perfusion imaging study is NORMAL. CONCLUSION: 1. Normal nuclear medicine myocardial perfusion scan. Dictated by: Sol Stahl M.D. on 04/16/2022 at 13:14 Approved by: Sol Stahl M.D. on 04/16/2022 at 13:16 Normal [facility] ECHOCARDIO M/2D COMPLETEon 0 04-13-2022 ECHOCARDIO M/2D COMPLETE Patient: LÓPEZ CORTÉS Exam Date: 04/13/2022 : 1950 Gender:M Ordering : DR TESS FUENTES . Admission #: [id number] Family : Order #: [id number] CLICK HERE TO VIEW EXAM ECHOCARDIOGRAM REPORT PROCEDURE: CARDIO PULMONARY ECHOCARDIO M/2D COMP INDICATIONS: Shortbess of breath, hypertension COMPARISON: None. DESCRIPTION: COMPLETE ECHOCARDIOGRAM Real-time transthoracic echocardiography with 2D, M-mode, spectral and color flow Doppler performed. QUALITY: Technical quality was good. LEFT VENTRICLE: Normal chamber size. Mild concentric left ventricular hypertrophy. LV EF: Normal left ventricular ejection fraction, (>55%). DIASTOLIC: Normal diastolic function. ATRIAL SEPTUM: Inadequately seen. LEFT ATRIUM: Normal chamber size. RIGHT ATRIUM: Mild dilatation. RIGHT VENTRICLE: Moderate dilatation. Normal right ventricular systolic function. TRICUSPID VALVE: Normal mobility and thickness. No stenosis with trivial regurgitation. Doppler studies reveal mildly (35-45) elevated right sided pressures. RVSP 39 mmHg MITRAL VALVE: Normal mobility and thickness. No evidence of mitral valve stenosis. There is no mitral annular calcification. Trivial mitral regurgitation. AORTIC VALVE: Normal trileaflet appearance. Mildly calcified aortic valve. Normal leaflet mobility. No evidence of aortic valve stenosis. No aortic regurgitation. AORTIC ROOT: Normal diameter and appearance. Ascending aorta is upper normal limits in size (3.52 cm). PULMONIC VALVE: Not well visualized. No stenosis. No regurgitation. PERICARDIUM: No evidence of pericardial effusion. IVC: Not well visualized. CONCLUSION: Global left ventricular systolic function is normal; visually estimated ejection fraction is 55 to 60%. Mild left ventricular hypertrophy. Normal diastolic function. The right atrium is mildly dilated. Right ventricle is moderately dilated with normal systolic function. Mildly elevated right-sided pressures. No significant valvular abnormalities. The ascending aorta is upper normal limits in size. Adult Echocardiography Procedure Report Left Ventricle LVEDD (3.7 - 5.6 cm): 4.42 cm LVESD (2.2 - 4.0 cm): 3.06 cm LVIVS thickness (0.6 - 1.2 cm): 1.14 cm LVPW thickness (0.5 - 1.0 cm): 1.11 cm e': 6.03 cm/s E - e': 12.60 LVOT Area (cm2): 3.80 cm2 LVOT Diameter 2.20 cm Left Ventricular Ejection Fraction: 58.60 % Left Atrium LA Volume Index (2D A2C): 24.70 ml/m2 Left Atrium Systolic Dimension: 4.60 cm Left Atrium Systolic Area(A2C): 20.50 cm2 Left Atrium Systolic Area(A4C): 20.60 cm2 Left Atrium Systolic Volume(A2C): 05400 mm3 Left Atrium Systolic Volume(A4C): 97451 mm3 Mitral Valve MV E to A Ratio: 0.80 Mitral Valve A-Wave Peak Velocity: 91.80 cm/s Mitral Valve E-Wave Peak Velocity: 76.00 cm/s Deceleration Time: 235 ms Right Ventricle Aorta AO Root Diam: 3.30 cm Aortic Valve Peak Velocity (Antegrade Flow): 138.00 cm/s AoV Area (Peak Adarsh): 2.76 cm2 AoV Area (VTI): 3.15 cm2 Peak Velocity(Antegrade Flow): 157.00 cm/s Peak Gradient(Antegrade Flow): 10 mm[Hg] Mean Velocity(Antegrade Flow): 97.80 cm/s Mean Gradient(Antegrade Flow): 5 mm[Hg] Velocity Time Integral: 32.60 cm Tricuspid Valve Pulmonic Valve Peak Velocity: 94.10 cm/s Peak Gradient: 4 mm[Hg] Right Atrium Dictated by: Gwen Sheridan M.D. on 04/13/2022 at 11:33 Approved by: Gwen Sheridan M.D. on 04/13/2022 at 11:36 Normal [facility] OCC BLD IMMUNO SCREENon 03-22 OCCULT BLOOD Negative Normal NEGATIVE [facility] Comment on above: Performed By: #### O BSCRN #### [facility] [address] [place] [address] Dr. Braulio Fritz INSULINon 04-12-2022 Insulin 18.7 uIU/mL Normal 2.6-24.9 [facility] Comment on above: Performed By: #### I NSULIN #### [facility] [address] [place] [address] Dr. Braulio Fritz BNPon 04-10-2022 Natriuretic peptide B (Bld) [Mass/Vol] 672.0 pg/mL Normal <=900.0 [facility] Comment on above: Performed By: #### A 1C #### [facility] [address] [place] [address] Dr. Braulio Fritz CBC AUTO DIFFon 04-10-2022 BASO # 0.1 103/ul Normal 0.0-0.1 [facility] Comment on above: Performed By: #### I NSULIN #### [facility] [address] [place] [address] Dr. Braulio Fritz Basophils/100 WBC (Bld) 0.8 % Normal 0.2-2.0 [facility] Comment on above: Performed By: #### I NSULIN #### [facility] Laboratory [address] [place] [address] Dr. Braulio Fritz EO # 0.3 103/ul Normal 0.0-0.7 [facility] Comment on above: Performed By: #### I NSULIN #### [facility] Laboratory [address] [place] [address] Dr. Braulio Fritz Eosinophils/100 WBC (Bld) 4.0 % Normal 0.9-7.0 [facility] Comment on above: Performed By: #### I NSULIN #### [facility] [address] [place] [address] Dr. Braulio Fritz Erythrocyte distribution width (RBC) [Ratio] 13.7 % Normal 11.0-15.0 [facility] Comment on above: Performed By: #### I NSULIN #### [facility] [address] [place] [address] Dr. Braulio Fritz Hematocrit (Bld) [Volume fraction] 47.7 % Normal 42.0-54.0 [facility] Comment on above: Performed By: #### I NSULIN #### [facility] [address] [place] [address] Dr. Braulio Fritz Hemoglobin (Bld) [Mass/Vol] 15.9 g/dL Normal 14.0-18.0 [facility] Comment on above: Performed By: #### I NSULIN #### [facility] [address] [place] [address] Dr. Braulio Fritz IG # 0.02 10e3/ul Normal 0.00-0.03 [facility] Comment on above: Performed By: #### I NSULIN #### [facility] [address] [place] [address] Dr. Braulio Fritz IG % 0.3 % Normal 0.0-0.5 [facility] Comment on above: Performed By: #### I NSULIN #### [facility] [address] [place] [address] Dr. Braulio Fritz LYMPH # 1.6 103/ul Normal 1.2-3.8 [facility] Comment on above: Performed By: #### I NSULIN #### [facility] [address] [place] [address] Dr. Braulio Fritz Lymphocytes/100 WBC (Bld) 24.6 % Normal 20.5-60.0 [facility] Comment on above: Performed By: #### I NSULIN #### [facility] [address] [place] [address] Dr. Braulio Fritz MANUAL DIFF REQ NO Normal [facility] Comment on above: Performed By: #### I NSULIN #### [facility] [address] [place] [address] Dr. Braulio Fritz MCH (RBC) [Entitic mass] 31.6 pg Normal 25.9-34.0 [facility] Comment on above: Performed By: #### I NSULIN #### [facility] [address] [place] [address] Dr. Braulio Fritz MCHC (RBC) [Mass/Vol] 33.3 g/dL Normal 29.9-35.2 [facility] Comment on above: Performed By: #### I NSULIN #### [facility] [address] [place] [address] Dr. Braulio Fritz MCV (RBC) [Entitic vol] 94.8 fL Critically high 80.0-94.0 [facility] Comment on above: Performed By: #### I NSULIN #### [facility] [address] [place] [address] Dr. Braulio Fritz MONO # 0.7 103/ul Normal 0.3-0.8 [facility] Comment on above: Performed By: #### I NSULIN #### [facility] [address] [place] [address] Dr. Braulio Fritz Monocytes/100 WBC (Bld) 11.2 % Normal 1.7-12.0 [facility] Comment on above: Performed By: #### I NSULIN #### [facility] [address] [place] [address] Dr. Braulio Fritz NEUT # 3.8 103/ul Normal 1.4-6.5 [facility] Comment on above: Performed By: #### I NSULIN #### [facility] [address] [place] [address] Dr. Braulio Fritz Neutrophils/100 WBC (Bld) 59.1 % Normal 43.0-75.0 [facility] Comment on above: Performed By: #### I NSULIN #### [facility] [address] [place] [address] Dr. Braulio Fritz Platelet mean volume (Bld) [Entitic vol] 10.0 fL Normal 9.5-13.5 [facility] Comment on above: Performed By: #### I NSULIN #### [facility] [address] [place] [address] Dr. Braulio Fritz PLT 210 103/ul Normal 150-450 [facility] Comment on above: Performed By: #### I NSULIN #### [facility] [address] [place] [address] Dr. Braulio Fritz RBC 5.03 106/ul Normal 4.70-6.10 [facility] Comment on above: Performed By: #### I NSULIN #### [facility] [address] [place] [address] Dr. Braulio Fritz WBC 6.5 103/ul Normal 4.0-11.0 [facility] Comment on above: Performed By: #### I NSULIN #### [facility] [address] [place] [address] Dr. Braulio Fritz FREE THYROXINE INDEX T7on FTI 2.64 Normal 1.30-4.50 [facility] Comment on above: Performed By: #### A 1C #### [facility] [address] [place] [address] Dr. Braulio Fritz T3U 40.0 % Normal 33.0-40.0 [facility] Comment on above: Performed By: #### A 1C #### [facility] [address] [address] [address] Braulio Fritz T4 [Mass/Vol] 6.60 ug/dL Normal 4.50-12.10 [facility] Comment on above: Performed By: #### A 1C #### [facility] [address] [address] [address] Braulio Fritz GLYCOHEMOGLOBIN A1Con 2021 ADA RECOMMENDATION SEE BELOW Normal [facility] Comment on above: Result Comment: ADA RECOMMENDED LIMIT 4.0 - 6.0 ADA THERAPEUTIC TARGET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 circumferential thickeningdistal esophageal wall, could be from mild esophagitis.Hepatic steatosis noted. Atrophic changes in the pancreas.Interpreted by:KENDELL Murrelligned by:Christiano Hansen MD10/25/17Final result Normal [facility] CBC with Diffon 10-25-2017 Abs. Basophil 0.00 k/uL Normal 0.0-0.[address] [facility] Comment on above: Performed By: #### C AMINTA, CP ####[facility] [facility] [place] [address] Abs.Neutrophil (Seg) 16.04 k/uL High 1.3-9.[address] [facility] Comment on above: Performed By: #### C AMINTA, CP ####[facility] [facility] [place] [address] Basophils/100 WBC Auto (Bld) 0 % Normal 0-[address] [facility] Comment on above: Performed By: #### C AMINTA, CP ####[facility] [place] [address] Blood morphology Normal Normal [facility] Comment on above: Result Comment: Perf ormed at [facility] [address] [place] [address] Performed By: #### C DP, CP ####[facility] [place] [address] Eosinophils 0.00 10*3/uL Normal 0.0-0.[address] [facility] Comment on above: Performed By: #### C DP, CP ####[facility] [place] [address] Eosinophils/100 leukocytes 0 % Normal 0-[address] [facility] Comment on above: Performed By: #### C DP, CP ####[facility] [place] [address] Lymphocytes 0.96 10*3/uL Low 1.0-4.[address] [facility] Comment on above: Performed By: #### C DP, CP ####[facility] [place] [address] Lymphocytes/100 leukocytes 5 % Low 24-[address] [facility] Comment on above: Performed By: #### C DP, CP ####[facility] [place] [address] Monocytes 2.10 10*3/uL High 0.1-1.[address] [facility] Comment on above: Performed By: #### C DP, CP ####[facility] [place] [address] Monocytes/100 leukocytes 11 % High 1-[address] [facility] Comment on above: Performed By: #### C DP, CP ####[facility] [place] [address] Neutrophil (Seg) 84 % High 36-66 [facility] Comment on above: Performed By: #### C DP, CP ####[facility] [place] [address] Erythrocyte distribution width Auto Ratio (RBC) 14.1 % Normal 11.5-14.[address] [facility] Comment on above: Performed By: #### C DP, CP ####[facility] [place] [address] Erythrocytes (RBC) 5.37 10*6/uL Normal 4.5-5.9 [facility] Comment on above: Performed By: #### C DP, CP ####[facility] [place], [place] [address] [place] [address] Hematocrit (HCT) 50.7 % Normal 41-53 [facility] Comment on above: Performed By: #### C DP, CP ####[facility] [place] [address] Hemoglobin mass conc (Bld) 16.8 g/dL Normal 13.5-17.[address] [facility] Comment on above: Performed By: #### C DP, CP ####[facility] [place], [place] [address] [place] [address] MCH 31.2 pg Normal 26-[address] [facility] Comment on above: Performed By: #### C DP, CP ####[facility] [place] [address] MCHC mass conc (RBC) 33.1 g/dL Normal 31-[address] [facility] Comment on above: Performed By: #### C DP, CP ####[facility] [place] [address] MCV 94.4 fL Normal 80-[address] [facility] Comment on above: Performed By: #### C DP, CP ####[facility] [place] [address] Platelet mean volume (PMV) 9.0 fL Normal 6.0-12.[address] [facility] Comment on above: Performed By: #### C DP, CP ####[facility] [place] [address] Platelets 227 10*3/uL Normal 150-[address] [facility] Comment on above: Performed By: #### C DP, CP ####[address] [address] WBC (Leukocytes) 19.1 10*3/uL High 3.5-11.[address] [facility] Comment on above: Performed By: #### C DP, CP ####[address] [address] Auto Diff Performed NOT REPORTED Normal [facility] Comment on above: Performed By: #### C DP, CP ####[address] [address] Erythrocyte morphology NOT REPORTED Normal [facility] Comment on above: Performed By: #### C DP, CP ####[address] [address] Granulocytes/100 WBC (Bld) NOT REPORTED Normal 0.00-0.[address] [facility] Comment on above: Performed By: #### C DP, CP ####[address] [address] Immature granulocytes #/vol (Bld) NOT REPORTED Normal [address] [facility] Comment on above: Performed By: #### C DP, CP ####[address] [address] Platelets NOT REPORTED Normal [facility] Comment on above: Performed By: #### C DP, CP ####[address] [place] [address] WBC Morphology NOT REPORTED Normal [facility] Comment on above: Performed By: #### C DP, CP ####[address] [address] Comp Metabolic Profon 2016 (cont.) Normal [facility] Comment on above: Result Comment: Aver age GFR for 60-69 years old: 85 mL/min/1.73sq mChronic Kidney Disease: <60 mL/min/1.73sq mKidney failure: <15 mL/min/1.73sq meGFR calculated using average adult body mass. Additional eGFR calculator available at:http://www.iPowerUp/multiple_crcl_2011.htmPerformed at [facility] [address] [place] [address] Performed By: #### C DP, CP ####[address] [address] Alanine aminotransferase (ALT) 35 U/L Normal 5-[address] [facility] Comment on above: Performed By: #### C DP, CP ####[address] [address] Albumin 4.4 g/dL Normal 3.5-5.[address] [facility] Comment on above: Performed By: #### C DP, CP ####[address] [address] Alkaline Phos 128 U/L Normal 40-[address] [facility] Comment on above: Performed By: #### C DP, CP ####[address] [address] Anion gap 14 mmol/L Normal 9-[address] [facility] Comment on above: Performed By: #### C DP, CP ####[address] [address] Aspartate aminotransferase (AST) 50 U/L High <[address] [facility] Comment on above: Performed By: #### C DP, CP ####[address] [address] Bilirubin Ql (U) 1.12 mg/dL Normal 0.3-1.2 [facility] Comment on above: Performed By: #### C DP, CP ####[address] [address] Calcium 9.2 mg/dL Normal 8.6-10.[address] [facility] Comment on above: Performed By: #### C DP, CP ####[address] [address] Chloride 107 mmol/L Normal 98-[address] [facility] Comment on above: Performed By: #### C DP, CP ####[address] [address] CO2 23 mmol/L Normal 20-[address] [facility] Comment on above: Performed By: #### C DP, CP ####[address] [address] Creatinine 1.30 mg/dL High 0.70-1.[address] [facility] Comment on above: Performed By: #### C DP, CP ####[address] [address] eGFR (non-black) 55 mL/min/{1.73_m2} Low >[address] [facility] Comment on above: Performed By: #### C DP, CP ####[place] [address] [facility] [place] [address] eGFR (non-black) mL/min/{1.73_m2} Normal >60 [facility] Comment on above: Performed By: #### C DP, CP ####[facility] [place] [address] Glucose mass conc 111 mg/dL High 70-99 [facility] Comment on above: Performed By: #### C DP, CP ####[facility] [facility] [place] [address] Potassium molar conc 4.3 mmol/L Normal 3.7-5.[address] [facility] Comment on above: Performed By: #### C DP, CP ####[facility] [place] [address].[place] [address] Protein 7.3 g/dL Normal 6.4-8.[address] [facility] Comment on above: Performed By: #### C DP, CP ####[facility] [place] [address] Sodium 144 mmol/L Normal 135-[address] [facility] Comment on above: Performed By: #### C DP, CP ####[facility] [place] [address].[place] [address] Urea nitrogen 24 mg/dL High 8-[address] [facility] Comment on above: Performed By: #### C DP, CP ####[facility] [place] [address] Albumin/Globulin Ratio NOT REPORTED Normal 1.0-2.[address] [facility] Comment on above: Performed By: #### C DP, CP ####[facility] [place] [address].[place] [address] BUN/CRE Ratio NOT REPORTED Normal 9-[address] [facility] Comment on above: Performed By: #### C DP, CP ####[facility] [facility] [place] [address] Staging: NOT REPORTED Normal [facility] Comment on above: Performed By: #### C DP, CP ####[facility] [facility] [place] [address] Vital Signs Date Time Vital Sign Value Performing Clinician Facility 01-31-2024 08:42-0400 Blood Pressure Location Obey VALLESL [facility] 01-31-2024 08:42-0400 Diastolic blood pressure 82 mm[Hg] Obey NILL [facility] 01-31-2024 08:42-0400 Heart rate 83 /min Obey NILL [facility] 01-31-2024 08:42-0400 Respiratory rate 16 /min Obey NILL [facility] 01-31-2024 08:42-0400 Systolic blood pressure 120 mm[Hg] Obey NILL [facility] 11-23-2023 08:25-0500 Body height 172.7 cm Bhavana Nila REHAB NURSING TECH-[employer] Work Phone: [facility] 11-23-2023 08:25-0500 Body mass index (BMI) [Ratio] 34.21 kg/m2 Bhavana Likez REHAB NURSING TECH-[employer] Work Phone: [facility] 11-23-2023 08:25-0500 Body weight 102.06 kg Bhavana Nila REHAB NURSING TECH-[employer] Work Phone: [facility] 05-16-2023 09:32-0400 Blood Pressure Location Darwin RICHMOND [facility] 05-16-2023 09:32-0400 Diastolic blood pressure 75 mm[Hg] Darwin RICHMOND [facility] 05-16-2023 09:32-0400 Heart rate 75 /min Darwin RICHMOND [facility] 05-16-2023 09:32-0400 Respiratory rate 16 /min Darwin RICHMOND [facility] 05-16-2023 09:32-0400 Systolic blood pressure 129 mm[Hg] Darwin RICHMOND [facility] 06-16-2022 10:13-0400 Body height 172.7 cm Barak Hebert MD Work Phone: [facility] 06-16-2022 10:13-0400 Body mass index (BMI) [Ratio] 35.28 kg/m2 Barak Hebert MD Work Phone: [facility] 06-16-2022 10:13-0400 Body weight 105.23 kg Barak Hebert MD Work Phone: [facility] 05-26-2022 07:57-0400 Body height 172.7 cm Gadiel Floyd MD Work Phone: [facility] 05-26-2022 07:57-0400 Body mass index (BMI) [Ratio] 35.28 kg/m2 Gadiel Floyd MD Work Phone: [facility] 05-26-2022 07:57-0400 Body temperature 97.7 [degF] Gadiel Floyd MD Work Phone: [facility] 05-26-2022 07:57-0400 Body weight 105.23 kg Gadiel Floyd MD Work Phone: [facility] 02-17-2022 12:58-0400 Body height 172.7 cm Gadiel Floyd MD Work Phone: [facility] 02-17-2022 12:58-0400 Body mass index (BMI) [Ratio] 36.81 kg/m2 Gadiel Floyd MD Work Phone: [facility] 02-17-2022 12:58-0400 Body temperature 98.2 [degF] Gadiel Floyd MD Work Phone: [facility] 02-17-2022 12:58-0400 Body weight 109.8 kg Gadiel Floyd MD Work Phone: [facility] 10-29-2021 11:09-0500 Body height 172.7 cm Bhavana Likez REHAB NURSING TECH-[employer] Work Phone: [facility] 10-29-2021 11:09-0500 Body mass index (BMI) [Ratio] 36.49 kg/m2 Bhavana Likez REHAB NURSING TECH-[employer] Work Phone: [facility] 10-29-2021 11:09-0500 Body temperature 97.2 [degF] Bahvana Likez REHAB NURSING TECH-[employer] Work Phone: [facility] 10-29-2021 11:09-0500 Body weight 108.86 kg Bhavana Likez REHAB NURSING TECH-[employer] Work Phone: [facility] 11-19-2020 11:08-0500 BMI (Body Mass Index) 34.21 kg/m2 [facility] 11-19-2020 11:08-0500 Body Temperature 97.59 [degF] [facility] 11-19-2020 11:08-0500 Body weight 102.06 kg [facility] 11-19-2020 11:08-0500 Height 172.7 cm [facility] 10-29-2020 15:11-0500 BP Diastolic 72 mm[Hg] [facility] 10-29-2020 15:11-0500 BP Systolic 148 mm[Hg] [facility] 10-29-2020 15:11-0500 Pulse (Heart Rate) 74 /min [facility] 10-29-2020 15:11-0500 Pulse Oximetry 100 % [facility] 10-29-2020 15:11-0500 Respiratory Rate 16 /min [facility] 10-29-2020 08:00-0500 Body Temperature 97.39 [degF] [facility] 10-28-2020 15:15-0500 BMI (Body Mass Index) 32.23 kg/m2 [facility] 10-28-2020 15:15-0500 Body weight 96.16 kg [facility] 10-28-2020 15:15-0500 Height 172.7 cm [facility] 09-11-2020 13:55-0400 BMI (Body Mass Index) 31.96 kg/m2 [facility] 09-11-2020 13:55-0400 Body Temperature 97.11 [degF] [facility] 09-11-2020 13:55-0400 Body weight 95.35 kg [facility] 09-11-2020 13:55-0400 Height 172.7 cm [facility] Encounters Encounter Date Encounter Type Care Provider Facility Start: 03-06-2024 End: 03-07-2024 ambulatory Obey R NILL Facility: [facility] Start: 03-06-2024 End: 03-06-2024 Patient encounter procedure Obey R NILL [facility] Nill/Said [place] Start: 02-28-2024 End: 02-29-2024 ambulatory Obey R NILL Facility: [facility] Start: 02-28-2024 End: 02-28-2024 Patient encounter procedure Obey R NILL [facility] Nill/[facility]aid [facility] Start: 01-31-2024 End: 02-01-2024 ambulatory Obey R NILL Facility: [facility] Start: 01-31-2024 End: 01-31-2024 Patient encounter procedure Obey R NILL [facility] [place] Start: 01-20-2024 ambulatory Obey NILL Facility:[facility] Start: 11-23-2023 End: 11-23-2023 Office outpatient visit 15 minutes Bhavana Addison REHAB NURSING TECH-[employer] Work Phone: [facility] Comment on above: Hx of total knee art hroplasty, left (Primary Dx) Start: 11-23-2023 End: 11-23-2023 Subsequent hospital visit by physician Bhavana Addison 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 Phone: [facility] Start: 05-16-2023 End: 05-17-2023 ambulatory Darwin RICHMOND Facility:[facility] Start: 05-16-2023 End: 05-16-2023 Patient encounter procedure Darwin RICHMOND [facility] Start: 01-27-2023 End: 01-28-[address] TESS FUENTES . Facility:[facility] Start: 01-12-2023 End: 01-12-2023 Patient encounter procedure Darwin RICHMOND [facility] Start: 06-16-[address] 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 Start: 05-26-2022 End: 05-26-2022 Office outpatient visit 10 minutes Gadiel Floyd MD Work Phone: [facility] Comment on above: Bilateral thumb pain (Primary Dx) Start: 04-15-2022 End: 04-16-[address] TESS FUENTES . Facility:[facility] Start: 04-13-2022 End: 04-14-[address] TESS FUENTES . Facility:[facility] Start: 04-10-2022 End: 04-11-[address] TESS FUENTES . Facility:[facility] Start: 04-09-2022 End: 04-10-[address] TESS FUENTES . Facility: Start: 02-17-[address] [facility] Start: 02-17-2022 End: 02-17-2022 Office outpatient new 30 minutes Gadiel Floyd MD Work Phone: [facility] Comment on above: Bilateral thumb pain (Primary Dx); Primary osteoarthritis of first carpometacarpal joint of left hand Start: 02-17-2022 End: 02-17-2022 Subsequent hospital visit by physician Gadiel Floyd MD Work Phone: [facility] Start: 12-17-2021 ambulatory [address] [facility] Start: 12-17-2021 End: 12-17-2021 Office outpatient visit 15 minutes Barak Hebert MD Work Phone: [facility] Comment on above: Bilateral thumb pain (Primary Dx); Left knee pain, unspecified chronicity Start: 11-27-[address] [facility] Start: 10-29-2021 End: 10-29-2021 Postop follow up visit related to original px Barak Hebert MD Work Phone: [facility] Comment on above: Hx of total knee art hroplasty, left (Primary Dx) Start: 10-29-2021 End: 10-29-2021 Subsequent hospital visit by physician Bhavana Addison 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 Phone: [facility] Start: 02-26-2021 End: 02-26-2021 Subsequent hospital visit by physician Barak Hebert Work Phone: [facility] Start: 11-19-2020 End: 11-19-2020 Postop follow up visit related to original px Kaila Richmond Work Phone: [facility] Comment on above: Hx of total knee art hroplasty, left (Primary Dx); Postoperative pain of knee Start: 11-19-2020 End: 11-19-2020 Subsequent hospital visit by physician Kaila Richmond Work Phone: [facility] Start: 10-28-2020 End: 10-29-2020 Evaluation and management of inpatient Barak Hebert Work Phone: [facility] Comment on above: Mechanical loosening of internal left knee prosthetic joint Start: 09-24-2020 End: 09-24-2020 Subsequent hospital visit by physician Barak Hebert Work Phone: [facility] Comment on above: Arrived Start: 09-23-2020 End: 09-23-2020 Subsequent hospital visit by physician Barak Hebert Work Phone: [facility] Comment on above: Arrived Start: 09-19-2020 End: 09-19-2020 Subsequent hospital visit by physician Barak Hebert Work Phone: [facility] Comment on above: Arrived Start: 09-11-2020 End: 09-11-2020 Subsequent hospital visit by physician Barak Hebert Work Phone: [facility] Start: 09-11-2020 End: 09-11-2020 Office outpatient new 45 minutes Barak Hebert Work Phone: [facility] Comment on above: Left knee pain, unsp ecified chronicity (Primary Dx); Pain in prosthetic joint, initial encounter Start: 02-23-2019 End: 02-26-2019 Patient encounter procedure GADIEL MEAGAN [facility] Start: 10-16-2018 End: 10-23-2018 Patient encounter procedure GADIEL RHODES [facility] Start: 03-20-2018 End: 04-19-2018 Patient encounter procedure GADIEL RHODES [facility] Start: 11-23-2017 End: 11-24-2017 Ambulatory DEFAULT PHYSICIAN Facility:[facility] Start: 10-25-2017 End: 10-26-2017 Emergency department patient visit ROBERTO Garcia [facility] Procedures Date Procedure Procedure Detail Performing Clinician Start: 01-27-[address] SHIRLEY FUENTES . Comment on above: Performed By: #### P SASC, VITAD #### [facility] [address] [place] [address] Dr. Braulio Fritz Start: 04-10-[address] SHIRLEY FUENTES . Comment on above: Performed By: #### B 12FOL, VITAD, PSASC, IRON #### [facility] [address] [place] [address] Dr. Braulio Fritz Start: 02-17-2022 Arthrocentesis aspir &/inj small jt/bursa w/o Irene Parker Start: 10-29-2020 Complete blood count with white cell differential, automated Bhavana Addison Work Phone: Start: 10-28-2020 X-ray of left knee Bhavanaroger Addison Work Phone: Start: 10-28-2020 End: 10-28-2020 Cul bact roberto aerobic isol xcpt ur blood/stool [facility] Work Phone: Start: 10-28-2020 End: 10-28-2020 Culture bacterial any source anaerobic iso&id [facility] Phone: Start: 10-28-2020 End: 10-28-2020 Fungus identified in Unspecified specimen by Culture [facility] Work Phone: Start: 10-28-2020 End: 10-28-2020 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 specific culture [facility] Phone: Start: 10-28-2020 Bacteria identified in Body fluid by Culture [facility] Phone: Start: 10-28-2020 End: 10-28-2020 Revj tot knee arthrp fem&entire tibial compone [facility] Work Phone: Start: 10-28-2020 Blood group typing, RH phenotyping [employer] Work Phone: Start: 09-24-2020 Nuclear medicine procedure [facility] Work Phone: Start: 09-19-2020 Radioisotope scan of bone Bhavana Addison Work Phone: Start: 09-11-2020 Intra-articular injection [facility] Work Phone: Start: 04-26-2019 Arthroscopic knee operation Darwin RICHMOND Start: 10-25-2017 Ct abdomen & pelvis w/contrast material ROBERTO GRUBER Start: 10-25-2017 Ct thorax w/contrast material ROBERTO GRUBER Start: 10-25-2017 CBC WITH AUTO DIFFERENTIAL ROBERTO GRUBER Start: 10-25-2017 COMPREHENSIVE METABO LIC PANEL ROBERTO GRUBER Start: 10-25-2017 EKG 12-LEAD [facility] Start: 11-21-2015 Colonoscopy Obey NI LL Arthroplasty of knee Darwin RICHMOND Arthroplasty of knee Obey NILL Repair of meniscus Obey WOODS Revision of knee arthroplasty Obey VALLESL Plan of Treatment Date Care Activity Detail Author Start: 07-22-2023 Influenza vaccination INFLUENZA VACC INE (#1) [facility] Start: 08-25-2022 End: 08-25-2022 Patient encounter procedure 08/25/2022 Office Visit Orthopaedics Gadiel Floyd MD [address] [place], [place] [address]donald Allen [place] [id number] [facility] Start: 07-22-2022 Influenza vaccination INFLUENZA VACC INE (#1) [facility] Start: 06-16-2022 End: 06-16-2022 Patient encounter procedure 06/16/2022 Office Visit Orthopaedics Barak Hebert MD [address] [place] [address] [facility] Start: 05-26-2022 End: 05-26-2022 Patient encounter procedure 05/26/2022 Office Visit Orthopaedics Gadiel Floyd MD [address] [place], [place] [address] [address] [facility] Start: 04-19-2022 COVID-19 VACCINE (2 - Pfizer series) COVID-19 VACCINE (2 - Pfizer series) [facility] Start: 02-17-2022 End: 02-11-2023 XR Thumb - left Views [facility] Work Phone: Comment on above: 1 Occurrences starti ng 02/17/2022 until 02/17/2022 Expected: 02/17/2022 , Expires: 02/11/2023 Start: 02-17-2022 End: 02-11-2023 XR Thumb - right Views [facility] Work Phone: Comment on above: 1 Occurrences starti ng 02/17/2022 until 02/17/2022 Expected: 02/17/2022 , Expires: 02/11/2023 Start: 02-17-2022 End: 02-17-2022 Patient encounter procedure 02/17/2022 Office Visit Orthopaedics Gadiel Floyd MD [address] [place] [address] [facility] Start: 10-29-2021 End: 10-29-2021 Office Visit 10/29/2021 Office Visit Orthopaedics Bhavana Addison, REHAB NURSING TECH-[employer]ASS [employer]UL[employer] SILVERER [address] [place] [address] [phone] [facility] Start: 07-22-2021 Influenza vaccination A [facility] Start: 02-19-2021 End: 02-19-2021 Office Visit 02/19/2021 Office Visit Orthopaedics Barak Hebert MD [address] [place] [address] [phone] [facility] Start: 11-19-2020 End: 11-19-2020 Office Visit 11/19/2020 Office Visit Orthopaedics Kaila Richmond PA-C [address] [place] [address] [phone] [facility] Start: 10-28-2020 End: 10-28-2020 Hospital Encounter [facility] Comment on above: Mechanical loosening of internal left knee prosthetic joint, initial encounter REVISION ARTHROPLAST Y KNEE left Start: 10-02-2020 End: 10-02-2020 Pre-Operative Nurse Assessment 10/02/2020 Pre-Operative Nurse Assessment Internal Medicine [facility] Start: 09-24-2020 Hospital Encounter 09/24/2020 Hospital Encounter Nuclear Medicine Barak Hebert MD [address] [place] [address] [phone] [facility] Start: 09-23-2020 End: 09-23-2020 Appointment 09/23/2020 Appointment Nuclear Medicine Barak Hebert MD [address] [place] [address] [phone] [facility] Start: 09-19-2020 End: 09-19-2020 Hospital [facility]counter [facility] Start: 09-11-2020 End: 09-11-2021 Nuclear medicine imaging procedure NUC BONE MARROW LIMITED AREA Imaging Routine Pain in prosthetic joint, initial encounter Expected: 09/11/2020, Expires: 09/11/2021 [facility] Comment on above: Expected: 09/11/2020 , Expires: 09/11/2021 Start: 09-11-2020 End: 09-11-2021 Nuclear medicine procedure NUC WBC STUDY Imaging Routine Pain in prosthetic joint, initial encounter Expected: 09/11/2020, Expires: 09/11/2021 [facility] Comment on above: Expected: 09/11/2020 , Expires: 09/11/2021 Start: 09-11-2020 End: 09-11-2021 Radioisotope scan of bone NUC BONE SCAN WHOLE BODY Imaging Routine Pain in prosthetic joint, initial encounter Expected: 09/11/2020, Expires: 09/11/2021 [facility] Comment on above: Expected: 09/11/2020 , Expires: 09/11/2021 Start: 08-21-2018 Pneumococcal vaccination PNEUM OCOCCAL VACCINE SERIES (2 - PCV) [facility] Start: 01-25-2016 Abdominal aortic aneurysm screening ABDOMINAL AORTIC ANEURYSM HIGH RISK SCREEN [facility] Start: 01-25-2016 Pneumococcal vaccination [facility] Start: 2001 Colonoscopy COLORECTAL CAN CER SCREENING DISCUSSION [facility] Start: 2001 Prostate specific antigen measurement PROSTATE CANCER SCREENING DISCUSSION [facility] Start: 2001 Zoster vaccine hzv l preet for subcutaneous use ZOSTER (SHINGLES) VACCINE (1 of 2) [facility] Start: 01-25-1996 Colonoscopy COLORECTAL CAN CER SCREENING DISCUSSION [facility] Start: 01-25-1996 Screening for malign ant neoplasm of colon COLORECTAL CANCER SCREENING DISCUSSION [facility] Start: 1991 Fasting lipid profile LIPID SCREENIN G [facility] Start: 1991 Lipid panel LIPID SCREENING [facility] Start: 1970 Third diphtheria, tetanus and acellular pertussis (DTaP) vaccination TDAP (ADULT) [facility] Start: 1969 Tetanus vaccination TETANUS [facility] Start: 1967 COVID-19 VACCINE (1) COVID-19 VACCIN E (1) [facility] Start: 1963 COVID-19 VACCINE (1) COVID-19 VACCIN E (1) [facility] Start: 01-25-1956 COVID-19 VACCINE (1) COVID-19 VACCIN E (1) [facility] Start: 1951 Hepatitis C antibody , confirmatory test HEPATITIS C VIRUS SCREENING [facility] Start: 1950 Hepatitis C screening HEPATITI S C VIRUS SCREENING [facility] Start: 1950 Tetanus vaccination TETANUS [facility] ANAEROBE CULTURE [facility] Comment on above: Release Upon Orderin g for 1 Occurrences starting 10/28/2020 Bacteria identified Cx Nom (Body fld) BODY FLUID CULTURE AND DIRECT SMEAR Microbiology Routine 10/28/2020 12:35 PM EST [facility] Bacteria identified Cx Nom (Unsp spec) BACTERIAL CULTURE AND DIRECT SMEAR, LESION, TISSUE, DEVICE Microbiology Routine Mechanical loosening of internal left knee prosthetic joint, initial encounter Release Upon Ordering for 1 Occurrences starting 10/28/2020 [facility] Comment on above: Release Upon Orderin g for 1 Occurrences starting 10/28/2020 Fungus identified Cx Nom (Unsp spec) [facility] Comment on above: Release Upon Orderin g for 1 Occurrences starting 10/28/2020 Mycobacterium sp identified Org specific cx Nom (Tiss) ACID FAST CULTURE, TISSUE Microbiology Routine Mechanical loosening of internal left knee prosthetic joint, initial encounter Release Upon Ordering for 1 Occurrences starting 10/28/2020 [facility] Comment on above: Release Upon Orderin g for 1 Occurrences starting 10/28/2020 Mycobacterium sp identified Org specific cx Nom (Unsp spec) [facility] End: 09-23-2020 Nuclear medicine imaging procedure NUC BONE MARROW LIMITED AREA Imaging Routine Pain in prosthetic joint, initial encounter 1 Occurrences starting 09/23/2020 until 09/23/2020 [facility] Comment on above: 1 Occurrences starti ng 09/23/2020 until 09/23/2020 Nuclear medicine marycarmen ging procedure NUC BONE MARROW LIMITED AREA Imaging Routine Pain in prosthetic joint, initial encounter 09/23/2020 12:09 PM EST [facility] End: 09-23-2020 Nuclear medicine procedure NUC WBC STUDY Imaging Routine Pain in prosthetic joint, initial encounter 1 Occurrences starting 09/23/2020 until 09/23/2020 [facility] Comment on above: 1 Occurrences starti ng 09/23/2020 until 09/23/2020 Nuclear medicine procedure NUC WBC STUDY Imaging Routine Pain in prosthetic joint, initial encounter 09/23/2020 6:01 AM [facility] Radiography for bone length studies [facility] X-ray of left knee XR KNEE LEFT 3 VIEWS Imaging Routine Hx of total knee arthroplasty, left 10/29/2021 10:55 AM EST [facility] XR Knee - left 3 Views XR KNEE L EFT 3 VIEWS Imaging Routine History of revision of total replacement of left knee joint 06/16/2022 9:41 AM EDT [facility] XR Knee - left 3 Views XR KNEE L EFT 3 VIEWS Imaging Routine Hx of total knee arthroplasty, left 11/23/2023 8:19 AM [facility] Immunizations Immunization Date Immunization Notes Care Provider Marce vargas 08-21-2023 influenza virus vacc ine, unspecified formulation Obey ALAS [facility] [place] 09-24-2022 SARS-CoV-2 (COVID-19 ) [id number] Darwin RICHMOND [facility] 08-31-2022 influenza virus vacc ine, unspecified formulation Darwin RICHMOND [facility] 03-29-2022 SARS-CoV-2 mRNA (ewrqmgtowws-flpt-crxvyy e) vaccine Darwin RICHMOND [facility] 09-21-2021 SARS-CoV-2 (COVID-19 ) Ad26 vaccine, recombinant Darwin RICHMOND [facility] 09-13-2021 SARS-CoV-2 (COVID-19 ) mRNA-1273 vaccine Darwin RICHMOND [facility] 02-19-2021 SARS-CoV-2 (COVID-19 ) Ad26 vaccine, recombinant Darwin RICHMOND [facility] 02-04-2021 SARS-CoV-2 (COVID-19 ) mRNA-1273 vaccine Darwin RICHMOND [facility] 01-19-2021 SARS-CoV-2 (COVID-19 ) Ad26 vaccine, recombinant Darwin RICHMOND [facility] 01-07-2021 SARS-CoV-2 (COVID-19 ) mRNA-1273 vaccine Darwin RICHMOND [facility] 09-03-2020 influenza virus vacc ine, unspecified formulation Bhavana Addison 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 Phone: [facility] 09-04-2019 influenza virus vacc ine, unspecified formulation Darwin RICHMOND [facility] 08-22-2018 influenza virus vacc ine, unspecified formulation Darwin RICHMOND [facility] 08-24-2017 influenza virus vacc ine, unspecified formulation Darwin RICHMOND [facility] 08-21-2017 pneumococcal polysaccharide vaccine, 23 valent Darwin RICHMOND [facility] 08-01-2017 pneumococcal polysaccharide vaccine, 23 valent Darwin COOK [facility] 06-27-2017 pneumococcal polysaccharide vaccine, 23 valent Darwin RICHMOND [facility] 09-09-2016 influenza virus vacc ine, unspecified formulation Darwin RICHMOND [facility] Payers Date Payer Category Payer Unknown [id number] 2020 Unknown 2020 Unknown [id number] 2017 Unknown [id number] 2016 Medicare [id number] 2016 Medicare MEDICARE MEDICAR E A AND B [id number] 2016-Present [address] [place] [address] [id number] 1959 Medicare [id number] 1959 Private Health Insurance CLI [id number] 1959 Unknown [id number] 1951 Unknown [id number] [id number] 83 1951 Unknown [id number] 2.16.840.1.541114.3.579.2.9 83 1951 Unknown [id number] 2.16.840.1.697520.3.579.2.9 83 1951 Unknown [id number] 2.16.840.1.690833.3.579.2.9 83 1951 Unknown [id number] 2.16.840.1.314961.3.579.2.9 83 1951 Unknown [id number] 2.16.840.1.039601.3.579.2.9 83 1951 Unknown [id number] 2.16.840.1.108094.3.579.2.9 83 1951 Unknown [id number] 2.16.840.1.262476.3.579.2.9 83 1951 Unknown [id number] 2.16.840.1.299599.3.579.2.5 93 1951 Unknown [id number] 2.16.840.1.920254.3.579.2.5 93 1951 Unknown [id number] 2.16.840.1.836881.3.579.2.5 93 1951 Unknown [id number] 2.16.840.1.836488.3.579.2.5 93 1951 Unknown [id number] 2.16.840.1.908672.3.579.2.5 93 1951 Unknown [id number] 2.16.840.1.995380.3.579.2.7 27 1951 Unknown [id number] 2.16.840.1.527619.3.579.2.7 27 1951 Unknown [id number] 2.16.840.1.997393.3.579.2.7 27 1951 Unknown [id number] [id number] 27 Social History Date Type Detail Facility Start: 09-11-2020 End: 01-31-2024 Tobacco smoking status NHIS Former smoker [facility] Start: 09-11-2020 End: 11-23-2023 Tobacco use and exposure [facility] Start: 09-11-2020 End: 11-23-2023 Alcohol intake Ex-drinker (finding) [facility] Start: 1950 Sex Assigned At Not on file [facility] Start: 10-02-2020 End: 11-23-2023 Tobacco Comment quit 40 yrs ago [facility] Exposure to SARS-CoV -2 (event) Not sure [facility] Start: 10-01-2020 Tobacco smoking status Never s moked tobacco (finding) [facility] Start: 11-23-2023 Sex Assigned At Male F [facility] History of tobacco use Current smoker [facility] Start: 11-23-2023 History of Social function [facility] Tobacco smoking status Never [facility] [place] Medical Equipment Procedure Code Equipment Code Equipment Origin al Text Equipment Identifier Dates Palacos R+G 1x40 (Bone Cement) [id number] Start: 10-28-2020 Attune Knee Syst em Revision Crs Rotating Platform Insert Size 7 8mm Aox [id number] Start: 10-28-2020 Attune Knee Syst em Revision Distal Femoral Augment [id number] Start: 10-28-2020 Attune Knee Syst em Revision Tibial Base Rotating Platform Size 6 Cemented [id number] Start: 10-28-2020 Attune Knee Syst em Revision Pressfit Stem 12mm X60mm [id number] Start: 10-28-2020 Attune Knee Syst em Revision Pressfit Stem 16mm X 110mm [id number] Start: 10-28-2020 Attune Knee Syst em Revision Tibial Sleeve Porocoat Partially Coated 29mm [id number] Start: 10-28-2020 Attune Knee Syst em Revision Crs Femoral Size 7 Left Cemented [id number] Start: 10-28-2020 Attune Knee Syst em Revision Posterior Femoral Augment Size 7 8mm Cemented [id number] Start: 10-28-2020 Attune Knee Syst em Revision Posterior Femoral Augment Size 7 4mm Cemented [id number] Start: 10-28-2020 Functional Status Date Assessment Result Facility 01-31-2024 Functional Status N/A [facility] [place] 05-16-2023 Functional Status N/A [facility] Rufino Clinical Notes 10-29-2021 to 01-31-2024 Maria G Ford - 11/23/2023 8:40 AM MARK Lozoya - 11/23/2023 8:40 AM Houston Bonner LPN - 06/16/2022 10:00 AM Suhas Hebert MD - 06/16/2022 10:00 AM EDT Note Date & Type Note Facility 01-31-2024 Note Chief Complaint consultation for skin lesion HPI Staff 74 year old male presents on consultation from Dr Fuentes for non healing lesion behind ear. Reports lesion posterior left ear for approximately 3-4 months. Unsure if this has changed in size since first noted. Reports frequently bleeding. Denies soreness or tenderness. History of Present Illness 74 yo male with h/o htn, hypercholesterolemia, COPD, arthritis, bph, migraines, peripheral neuropathy, referred for 4 month h/o nonhealing skin lesion behind left ear; scabs over, no pain, won't heal, slight increase in size, no h/o skin cancer; no asa or NSAID use; no tobacco use. Review of Systems PHQ Score Initial Depression Screen Score: 0 SCORE ROS - Provider Constitutional: no fever, no sweats, no weight loss. Eyes: no glasses, no blurred vision, no visual loss. ENMT: no dentures, no hoarseness, no swallowing difficulties, no hearing loss, no ear infection(s), no nose bleeds. Cardiovascular: normal blood pressure, no chest pain, regular heartbeat, no heart murmur. Respiratory: no shortness of breath, no cough, no asthma, no wheezing. Gastrointestinal: no nausea, no vomiting, no diarrhea, no constipation, no blood in stool, no change in bowel habits, no abdominal pain, no hepatitis. Genitourinary: no kidney stones, no urine infection, no dysuria. Musculoskeletal: no pain, no weakness. Skin: no changing moles, no rash, no skin lumps. Neurologic: no seizures, no epilepsy, no headache. Psychiatric: no emotional or psychiatric problem. Heme/Lymph: no bleeding problems, no anemia, no blood clots, no transfusions. Allergy/Immunologic: no swollen lymph nodes/glands, no IV drug abuse. Other: Additional ROS info: Except as noted in the above Review of Systems and in the History of Present Illness, all other systems have been reviewed and are negative or noncontributory. Physical Exam Vitals & Measurements HR: 83(Peripheral) RR: 16 BP: 120/82 HT: 68 in HT: 172 cm WT: 106.9 kg WT: 235.18 lb BMI: 36.13 HEENT: normal conjunctiva, sclera clear, no scleral icterus, EOM intact, PERRLA, oral mucosa moist without lesions. Neck: trachea midline, no mass, symmetric, no thyromegaly or nodules, no adenopathy Musculoskeletal: normal gait, digits and nails without infection, nodes, cyanosis, clubbing. Skin: no rashes, left posterior pinna with 4 mm scab, no open or raised areas, no ulcers, no subcutaneous nodules, induration. Psychiatric/Neuro: oriented to time, place, person, judgement normal, affect appropriate for age, insight intact, no focal deficits. Tests: , review of old records completed , Discussed surgical options, risks, and possible complications with patient. Assessment/Plan 1. Neoplasm of uncertain behavior of skin of ear (D48.5: Neoplasm of uncertain behavior of skin) plan excisional biopsy under local anesthesia in the office for definitive diagnosis/treatment; informed consent obtained. 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 Medications irbesartan 300 mg Tab, 300 mg= 1 tab(s), Oral, Daily Pantoprazole [address] Tab, 40 mg= 1 tab(s), Oral, Daily, 3 refills pravastatin 40 mg Tab, 40 mg= 1 tab(s), Oral, Daily tadalafil 10 mg Tab, See Instructions, PRN, 5 refills temazepam 15 mg Cap, Oral, Once a day (at bedtime) Allergies sulfamethoxazole (Unknown) Social History Alcohol - Denies Alcohol Use, 01/31/2024 Substance Abuse - Denies Substance Abuse, 01/31/2024 Tobacco Former smoker, quit more than 30 days ago Tobacco Use:. Never Smokeless Tobacco Use:. Cigarettes, 1 per day. Started age 18.0 Years. Stopped age 31 Years., 01/31/2024 Family History CVA: Mother. Immunizations Vaccine Date Status influenza virus vaccine, inactivated 08/2023 Recorded SARS-CoV-2 (COVID-19) [id number] 09/24/2022 Recorded influenza virus vaccine, inactivated 08/31/2022 Recorded SARSCoV2 mRNA([id number]) vac 03/29/2022 Recorded SARS-CoV-2 (COVID-19) Ad26 vaccine 09/2021 Recorded SARS-CoV-2 (COVID-19) (more content not included)... [facility] Comment on above: Result Comment: Elec tronically Signed By: EVETTE RILEY, Obey Varela\Date and Time Signed: 01/31/24 09:05 EDT 11-23-2023 History of Present illness Narrative Ortho Nurse - Established Patient Intake Room#: 5 Date: 11/23/2023 8:26 AM Patient: López Cortés MR#: [id number] : 1950 Age: 73 y.o. 3yr L TKA Pt stated he his L knee was giving out on him last month he would get a pain in it then would buckle has not happened in the last 2 weeks. Pt stated he has pain when he walks or stands for a long time. 03/30 Referring Physician: Self, Self Insurance: Payor: MEDICARE / Plan: MEDICARE A AND B / Product Type: *No Product type* / Chief Complaint Patient presents with Left Knee - Follow-up Visit Vitals Ht 1.727 m (5' 8 ) Wt 102.1 kg (225 lb) BMI 34.21 kg/m Pain Recent Labs Lab Results Component Value Date CRP 11.2 (H) 11/27/2021 Lab Results Component Value Date SEDRATE 27 (H) 11/27/2021 Lab Results Component Value Date WBC 13.1 (H) 10/29/2020 HGB 10.9 (L) 10/29/2020 HCT 34.0 (L) 10/29/2020 PLATELET 247 10/29/2020 MCV 86.4 10/29/2020 History Past Medical History: Diagnosis Date Arthritis Bruised kidney from a fall Essential hypertension, benign GERD (gastroesophageal reflux disease) Hyperlipidemia Migraine Past Surgical History: Procedure Laterality Date REVISION ARTHROPLASTY KNEE Left 10/28/2020 Laterality: Left; Surgeon: Barak Hebert MD; Location: [facility] KNEE SURGERY Left 05/07/2020 ---left tka KNEE SURGERY Right 11/22/2019 right tka-- GALL BLADDER SURGERY 09/08/2012 SHOULDER SURGERY Right Family History: His family history is not on file. Social History: His reports that he has quit smoking. His smoking use included cigarettes. He has never used smokeless tobacco. He reports that he does not currently use alcohol. He reports that he does not use drugs. Outpatient Medications Prior to Visit Medication Sig Dispense Refill aspirin EC [address] Take 1 tablet by mouth daily. lisinopril 10 MG tablet Take 1 tablet by mouth daily. Multiple Vitamin (multivitamin) capsule Take 1 capsule by mouth daily. pantoprazole [address] tablet DR Take 1 tablet by mouth daily. pravastatin 20 MG tablet Take 2 tablets by mouth daily. SUMAtriptan 100 MG tablet Take 1 tablet by mouth once. May repeat in 2 hr, MAX 200MG/24HR temazepam 15 MG capsule Take 1 capsule by mouth at bedtime as needed. acetaminophen 325 MG tablet Take 2 tablets by mouth every 4 hours as needed for Mild Pain. 50 tablet 1 aspirin EC [address] Take 1 table twice a day for 30days. This medication is for blood clot prevention. (Patient not taking: Reported on 02/26/2021) 60 tablet 0 dexAMETHasone 4 MG/ML Solution injection 1 mL by Other route As directed for 18 doses. (1 cc 3 x a week at physical therapy via iontophoresis) for up to 18 doses. 30 mL 0 docusate 100 MG capsule Take 1 capsule by mouth 2 times daily. 60 capsule 0 doxazosin 2 MG tablet 1 tablet doxazosin 4 MG tablet Take 4 mg by mouth Every night. meloxicam 7.5 MG tablet Take 1 tablet by mouth daily. (Patient not taking: Reported on 02/26/2021) 30 tablet 0 pregabalin 75 MG capsule Take 75 mg by mouth 2 times daily. No facility-administered medications prior to visit. Current Outpatient Medications: aspirin EC [address], Take 1 tablet by mouth daily., Disp: , Rfl: lisinopril 10 MG tablet, Take 1 tablet by mouth daily., Disp: , Rfl: Multiple Vitamin (multivitamin) capsule, Take 1 capsule by mouth daily., Disp: , Rfl: pantoprazole [address] tablet DR, Take 1 tablet by mouth daily., Disp: , Rfl: pravastatin 20 MG tablet, Take 2 tablets by mouth daily., Disp: , Rfl: SUMAtriptan 100 MG tablet, Take 1 tablet by mouth once. May repeat in 2 hr, MAX 200MG/24HR, Disp: , Rfl: temazepam 15 MG capsule, Take 1 capsule by mouth at bedtime as needed., Disp: , Rfl: acetaminophen 325 MG tablet, Take 2 tablets by mouth every 4 hours as needed for Mild Pain., Disp: 50 tablet, Rfl: 1 aspirin EC [address], Take 1 table twice a day for 30days. This medication is for blood clot prevention. (Patient not taking: Reported on 02/26/2021), Disp: 60 tablet, Rfl: 0 dexAMETHasone 4 MG/ML Solution injection, 1 mL by Other route As directed for 18 doses. (1 cc 3 x a week at physical therapy via iontophoresis) for up to 18 doses., Disp: 30 mL, Rfl: 0 docusate 100 MG capsule, Take 1 capsule by mouth 2 times daily., Disp: 60 capsule, Rfl: 0 doxazosin 2 MG tablet, 1 tablet, Disp: , Rfl: doxazosin 4 MG tablet, Take 4 mg by mouth Every night., Disp: , Rfl: meloxicam 7.5 MG tablet, Take 1 tablet by mouth daily. (Patient not taking: Reported on 02/26/2021), Disp: 30 tablet, Rfl: 0 pregabalin 75 MG capsule, Take 75 mg by mouth 2 times daily., Disp: , Rfl: Allergies: He is allergic to penicillins and sulfa antibiotics. López is an established patient of [facility]. He is here today for followup. He is now about 3 years out from left knee revision. Reports overall he is doing well up until the holiday started. He stops his exercises and had some feelings of instability in the left knee since that time along with pain in the anterior knee. He reports he has not had any instability as of the last 2 weeks. He has no fevers or chills. No swelling in the knee. No pain. No warmth. PHYSICAL EXAMINATION: GENERAL: He is alert and oriented, age-appropriate male, in no acute distress. Pleasant and cooperative. EXTREMITIES: Left lower extremity has thigh and calf soft and nontender. Normal neurovascular status. Negative Homans sign. Well-healed incision. Remainder of the skin is intact. Knee is stable to varus and valgus stress. No increased anterior or posterior drawer. Range of motion 0-120 degrees. There is no ligamentous laxity felt in the knee. No pain overlying the quad or patellar tendons to palpation. Right lower extremity has thigh and calf soft and nontender. Normal neurovascular status. Negative Homans sign. DIAGNOSTIC STUDY INTERPRETATION: Multiple views of the knee demonstrate a cemented revision total knee arthroplasty in unchanged position and alignment compared to previous imaging. No evidence of periprosthetic implant loosening or migration. No evidence of fracture. ASSESSMENT AND PLAN: 1. Three weeks status post left total knee. 2. Intermittent left knee pain. 3. Inactivity. PLAN: I reviewed my findings with López. His symptoms seem to correlate with the time that he became less active and not exercising the knee anymore. I have encouraged him to get back to his baseline exercise program. Keep a journal of his symptoms and if they persist, he can certainly follow up with Dr. Hebert. For further evaluation, I am hopeful that the resumption of his exercise program will resolve his symptoms. (DOC:[id number]) I have reviewed the findings of the clinical client support administrator and agree with their assessment. Bhavana Addison APRN-CARINE Ortho Nurse - Established Patient Intake Room#: 5 Date: 11/23/2023 8:26 AM Patient: López Cortés MR#: [id number] : 1950 Age: 73 y.o. 3yr L TKA Pt stated he his L knee was giving out on him last month he would get a pain in it then would buckle has not happened in the last 2 weeks. Pt stated he has pain when he walks or stands for a long time. 03/30 Referring Physician: Self, Self Insurance: Payor: MEDICARE / Plan: MEDICARE A AND B / Product Type: *No Product type* / Chief Complaint Patient presents with Left Knee - Follow-up Visit Vitals Ht 1.727 m (5' 8 ) Wt 102.1 kg (225 lb) BMI 34.21 kg/m Pain Recent Labs Lab Results Component Value Date CRP 11.2 (H) 11/27/2021 Lab Results Component Value Date SEDRATE 27 (H) 11/27/2021 Lab Results Component Value Date WBC 13.1 (H) 10/29/2020 HGB 10.9 (L) 10/29/2020 HCT 34.0 (L) 10/29/2020 PLATELET 247 10/29/2020 MCV 86.4 10/29/2020 History Past Medical History: Diagnosis Date Arthritis Bruised kidney from a fall Essential hypertension, benign GERD (gastroesophageal reflux disease) Hyperlipidemia Migraine Past Surgical History: Procedure Laterality Date REVISION ARTHROPLASTY KNEE Left 10/28/2020 Laterality: Left; Surgeon: Barak Hebert MD; Location: [facility] KNEE SURGERY Left 05/07/2020 ---left tka KNEE SURGERY Right 11/22/2019 right tka-- GALL BLADDER SURGERY 09/08/2012 SHOULDER SURGERY Right Family History: His family history is not on file. Social History: His reports that he has quit smoking. His smoking use included cigarettes. He has never used smokeless tobacco. He reports that he does not currently use alcohol. He reports that he does not use drugs. Outpatient Medications Prior to Visit Medication Sig Dispense Refill aspirin EC [address] Take 1 tablet by mouth daily. lisinopril 10 MG tablet Take 1 tablet by mouth daily. Multiple Vitamin (multivitamin) capsule Take 1 capsule by mouth daily. pantoprazole [address] tablet DR Take 1 tablet by mouth daily. pravastatin 20 MG tablet Take 2 tablets by mouth daily. SUMAtriptan 100 MG tablet Take 1 tablet by mouth once. May repeat in 2 hr, MAX 200MG/24HR temazepam 15 MG capsule Take 1 capsule by mouth at bedtime as needed. acetaminophen 325 MG tablet Take 2 tablets by mouth every 4 hours as needed for Mild Pain. 50 tablet 1 aspirin EC [address] Take 1 table twice a day for 30days. This medication is for blood clot prevention. (Patient not taking: Reported on 02/26/2021) 60 tablet 0 dexAMETHasone 4 MG/ML Solution injection 1 mL by Other route As directed for 18 doses. (1 cc 3 x a week at physical therapy via iontophoresis) for up to 18 doses. 30 mL 0 docusate 100 MG capsule Take 1 capsule by mouth 2 times daily. 60 capsule 0 doxazosin 2 MG tablet 1 tablet doxazosin 4 MG tablet Take 4 mg by mouth Every night. meloxicam 7.5 MG tablet Take 1 tablet by mouth daily. (Patient not taking: Reported on 02/26/2021) 30 tablet 0 pregabalin 75 MG capsule Take 75 mg by mouth 2 times daily. No facility-administered medications prior to visit. Current Outpatient Medications: aspirin EC [address], Take 1 tablet by mouth daily., Disp: , Rfl: lisinopril 10 MG tablet, Take 1 tablet by mouth daily., Disp: , Rfl: Multiple Vitamin (multivitamin) capsule, Take 1 capsule by mouth daily., Disp: , Rfl: pantoprazole [address] tablet DR, Take 1 tablet by mouth daily., Disp: , Rfl: pravastatin 20 MG tablet, Take 2 tablets by mouth daily., Disp: , Rfl: SUMAtriptan 100 MG tablet, Take 1 tablet by mouth once. May repeat in 2 hr, MAX 200MG/24HR, Disp: , Rfl: temazepam 15 MG capsule, Take 1 capsule by mouth at bedtime as needed., Disp: , Rfl: acetaminophen 325 MG tablet, Take 2 tablets by mouth every 4 hours as needed for Mild Pain., Disp: 50 tablet, Rfl: 1 aspirin EC [address], Take 1 table twice a day for 30days. This medication is for blood clot prevention. (Patient not taking: Reported on 02/26/2021), Disp: 60 tablet, Rfl: 0 dexAMETHasone 4 MG/ML Solution injection, 1 mL by Other route As directed for 18 doses. (1 cc 3 x a week at physical therapy via iontophoresis) for up to 18 doses., Disp: 30 mL, Rfl: 0 docusate 100 MG capsule, Take 1 capsule by mouth 2 times daily., Disp: 60 capsule, Rfl: 0 doxazosin 2 MG tablet, 1 tablet, Disp: , Rfl: doxazosin 4 MG tablet, Take 4 mg by mouth Every night., Disp: , Rfl: meloxicam 7.5 MG tablet, Take 1 tablet by mouth daily. (Patient not taking: Reported on 02/26/2021), Disp: 30 tablet, Rfl: 0 pregabalin 75 MG capsule, Take 75 mg by mouth 2 times daily., Disp: , Rfl: Allergies: He is allergic to penicillins and sulfa antibiotics. documented in this encounter [facility] 05-16-2023 Hospital Discharge instructions Patient Education 05/16/2023 10:12:47 Erectile Dysfunction Erectile Dysfunction Erectile dysfunction (ED) is the inability to get or keep an erection in order to have sexual intercourse. ED is considered a symptom of an underlying disorder and is not considered a disease. ED may include: Inability to get an erection. Lack of enough hardness of the erection to allow penetration. Loss of erection before sex is finished. What are the causes? This condition may be caused by: Physical causes, such as: ?Artery problems. This may include heart disease, high blood pressure, atherosclerosis, and diabetes. ?Hormonal problems, such as low testosterone. ?Obesity. ?Nerve problems. This may include back or pelvic injuries, multiple sclerosis, Parkinson's disease, spinal cord injury, and stroke. Certain medicines, such as: ?Pain relievers. ?Antidepressants. ?Blood pressure medicines and water pills (diuretics). ?Cancer medicines. ?Antihistamines. ?Muscle relaxants. Lifestyle factors, such as: ?Use of drugs such as marijuana, cocaine, or opioids. ?Excessive use of alcohol. ?Smoking. ?Lack of physical activity or exercise. Psychological causes, such as: ?Anxiety or stress. ?Sadness or depression. ?Exhaustion. ?Fear about sexual performance. ?Guilt. What are the signs or symptoms? Symptoms of this condition include: Inability to get an erection. Lack of enough hardness of the erection to allow penetration. Loss of the erection before sex is finished. Sometimes having normal erections, but with frequent unsatisfactory episodes. Low sexual satisfaction in either partner due to erection problems. A curved penis occurring with erection. The curve may cause pain, or the penis may be too curved to allow for intercourse. Never having nighttime or morning erections. How is this diagnosed? This condition is often diagnosed by: Performing a physical exam to find other diseases or specific problems with the penis. Asking you detailed questions about the problem. Doing tests, such as: ?Blood tests to check for diabetes mellitus or high cholesterol, or to measure hormone levels. ?Other tests to check for underlying health conditions. ?An ultrasound exam to check for scarring. ?A test to check blood flow to the penis. Doing a sleep study at home to measure nighttime erections. How is this treated? This condition may be treated by: Medicines, such as: ?Medicine taken by mouth to help you achieve an erection (oral medicine). ?Hormone replacement therapy to replace low testosterone levels. ?Medicine that is injected into the penis. Your health care provider may instruct you how to give yourself these injections at home. ?Medicine that is delivered with a short applicator tube. The tube is inserted into the opening at the tip of the penis, which is the opening of the urethra. A tiny pellet of medicine is put in the urethra. The pellet dissolves and enhances erectile function. This is also called MUSE (medicated urethral system for erections) therapy. Vacuum pump. This is a pump with a ring on it. The pump and ring are placed on the penis and used to create pressure that helps the penis become erect. Penile implant surgery. In this procedure, you may receive: ?An inflatable implant. This consists of cylinders, a pump, and a reservoir. The cylinders can be inflated with a fluid that helps to create an erection, and they can be deflated after intercourse. ?A semi-rigid implant. This consists of two silicone rubber rods. The rods provide some rigidity. They are also flexible, so the penis can both curve downward in its normal position and become straight for sexual intercourse. Blood vessel surgery to improve blood flow to the penis. During this procedure, a blood vessel from a different part of the body is placed into the penis to allow blood to flow around (bypass) damaged or blocked blood vessels. Lifestyle changes, such as exercising more, losing weight, and quitting smoking. Follow these instructions at home: Medicines Take [id number] and prescription medicines only as told by your health care provider. Do not increase the dosage without first discussing it with your health care provider. If you are using self-injections, do injections as directed by your health care provider. Make sure you avoid any veins that are on the surface of the penis. After giving an injection, apply pressure to the injection site for 5 minutes. Talk to your health care provider about how to prevent headaches while taking ED medicines. These medicines may cause a sudden headache due to the increase in blood flow in your body. General instructions Exercise regularly, as directed by your health care provider. Work with your health care provider to lose weight, if needed. Do not use any products that contain nicotine or tobacco. These products include cigarettes, chewing tobacco, and vaping devices, such as e-cigarettes. If you need help quitting, ask your health care provider. Before using a vacuum pump, read the instructions that come with the pump and discuss any questions with your health care provider. Keep all follow-up visits. This is important. Contact a health care provider if: You feel nauseous. You are vomiting. You get sudden headaches while taking ED medicines. You have any concerns about your sexual health. Get help right away if: You are taking oral or injectable medicines and you have an erection that lasts longer than 4 hours. If your health care provider is unavailable, go to the nearest emergency room for evaluation. An erection that lasts much longer than 4 hours can result in permanent damage to your penis. You have severe pain in your groin or abdomen. You develop redness or severe swelling of your penis. You have redness spreading at your groin or lower abdomen. You are unable to urinate. You experience chest pain or a rapid heartbeat (palpitations) after taking oral medicines. These symptoms may represent a serious problem that is an emergency. Do not wait to see if the symptoms will go away. Get medical help right away. Call your local emergency services (911 in the [place] Do not drive yourself to the hospital. Summary Erectile dysfunction (ED) is the inability to get or keep an erection during sexual intercourse. This condition is diagnosed based on a physical exam, your symptoms, and tests to determine the cause. Treatment varies depending on the cause and may include medicines, hormone therapy, surgery, or a vacuum pump. You may need follow-up visits to make sure that you are using your medicines or devices correctly. Get help right away if you are taking or injecting medicines and you have an erection that lasts longer than 4 hours. This information is not intended to replace advice given to you by your health care provider. Make sure you discuss any questions you have with your health care provider. Document Revised: 02/03/2022 Document Reviewed: 02/03/2022 [facility] [facility] Patient Education 2022 [employer]. Follow Up Care 01/26/2022 15:47:19 With:ISABEL RILEY, Darwin Moreno, URL Address: [address] [place] [id number]: Unknown Comments:PRN [facility] [place] [facility] 06-16-2022 History of Present illness Narrative Ortho Nurse - Established Patient Intake Room#: 1 Left Knee Revision checkup, doing great , some pain of 2 when doing steps, Clindamycin was ordered today for dental prophylaxis Date: 06/16/2022 10:17 AM Patient: López Cortés MR#: [id number] : 1950 Age: 72 y.o. Referring Physician: Barak Hebert MD Insurance: Payor: MEDICARE / Plan: MEDICARE A AND B / Product Type: *No Product type* / Chief Complaint Patient presents with Left Knee - Post Op Visit Visit Vitals Ht 1.727 m (5' 8 ) Wt 105.2 kg (232 lb) BMI 35.28 kg/m Pain Presence of Pain: complains of pain/discomfort Pain Location: knee, left Select Pain Scale: DVPRS (Defense and Veterans Pain Rating Scale) (Adult-Cognitively Intact) Pain Location: knee, left [facility] Pain Scale: DVPRS (Defense and Veterans Pain Rating Scale) (Adult-Cognitively Intact) Recent Labs Lab Results Component Value Date CRP 11.2 (H) 11/27/2021 Lab Results Component Value Date SEDRATE 27 (H) 11/27/2021 Lab Results Component Value Date WBC 13.1 (H) 10/29/2020 HGB 10.9 (L) 10/29/2020 HCT 34.0 (L) 10/29/2020 PLATELET 247 10/29/2020 MCV 86.4 10/29/2020 History Past Medical History: Diagnosis Date Arthritis Bruised kidney from a fall Essential hypertension, benign GERD (gastroesophageal reflux disease) Hyperlipidemia Migraine Past Surgical History: Procedure Laterality Date REVISION ARTHROPLASTY KNEE Left 10/28/2020 Laterality: Left; Surgeon: Barak Hebert MD; Location: [facility] KNEE SURGERY Left 05/07/2020 ---left tka KNEE SURGERY Right 11/22/2019 right tka-- GALL BLADDER SURGERY 09/08/2012 SHOULDER SURGERY Right Family History: His family history is not on file. Social History: His reports that he has quit smoking. His smoking use included cigarettes. He has never used smokeless tobacco. He reports previous alcohol use. He reports that he does not use drugs. Outpatient Medications Prior to Visit Medication Sig Dispense Refill aspirin EC [address] Take 81 mg by mouth daily. doxazosin 2 MG tablet 1 tablet lisinopril 10 MG tablet Take 10 mg by mouth daily. Multiple Vitamin (multivitamin) capsule Take 1 tablet by mouth daily. pantoprazole [address] tablet DR Take 40 mg by mouth daily. pravastatin 20 MG tablet Take 40 mg by mouth daily. SUMAtriptan 100 MG tablet Take 100 mg by mouth once. May repeat in 2 hr, MAX 200MG/24HR temazepam 15 MG capsule Take 15 mg by mouth at bedtime as needed. acetaminophen 325 MG tablet Take 2 tablets by mouth every 4 hours as needed for Mild Pain. 50 tablet 1 aspirin EC [address] Take 1 table twice a day for 30days. This medication is for blood clot prevention. (Patient not taking: Reported on 02/26/2021) 60 tablet 0 dexAMETHasone 4 MG/ML Solution injection 1 mL by Other route As directed for 18 doses. (1 cc 3 x a week at physical therapy via iontophoresis) for up to 18 doses. 30 mL 0 docusate 100 MG capsule Take 1 capsule by mouth 2 times daily. 60 capsule 0 doxazosin 4 MG tablet Take 4 mg by mouth Every night. meloxicam 7.5 MG tablet Take 1 tablet by mouth daily. (Patient not taking: Reported on 02/26/2021) 30 tablet 0 pregabalin 75 MG capsule Take 75 mg by mouth 2 times daily. No facility-administered medications prior to visit. Current Outpatient Medications: aspirin EC [address], Take 81 mg by mouth daily., Disp: , Rfl: doxazosin 2 MG tablet, 1 tablet, Disp: , Rfl: lisinopril 10 MG tablet, Take 10 mg by mouth daily., Disp: , Rfl: Multiple Vitamin (multivitamin) capsule, Take 1 tablet by mouth daily., Disp: , Rfl: pantoprazole [address] tablet , Take 40 mg by mouth daily., Disp: , Rfl: pravastatin 20 MG tablet, Take 40 mg by mouth daily., Disp: , Rfl: SUMAtriptan 100 MG tablet, Take 100 mg by mouth once. May repeat in 2 hr, MAX 200MG/24HR, Disp: , Rfl: temazepam 15 MG capsule, Take 15 mg by mouth at bedtime as needed., Disp: , Rfl: acetaminophen 325 MG tablet, Take 2 tablets by mouth every 4 hours as needed for Mild Pain., Disp: 50 tablet, Rfl: 1 aspirin EC [address], Take 1 table twice a day for 30days. This medication is for blood clot prevention. (Patient not taking: Reported on 02/26/2021), Disp: 60 tablet, Rfl: 0 dexAMETHasone 4 MG/ML Solution injection, 1 mL by Other route As directed for 18 doses. (1 cc 3 x a week at physical therapy via iontophoresis) for up to 18 doses., Disp: 30 mL, Rfl: 0 docusate 100 MG capsule, Take 1 capsule by mouth 2 times daily., Disp: 60 capsule, Rfl: 0 doxazosin 4 MG tablet, Take 4 mg by mouth Every night., Disp: , Rfl: meloxicam 7.5 MG tablet, Take 1 tablet by mouth daily. (Patient not taking: Reported on 02/26/2021), Disp: 30 tablet, Rfl: 0 pregabalin 75 MG capsule, Take 75 mg by mouth 2 times daily., Disp: , Rfl: Allergies: He is allergic to penicillins and sulfa antibiotics. HPI: López is here today for evaluation of his operative knee. 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 He was last evaluated on 12/17/21, diagnosed with patellar tendonitis and was ordered PT. He states the PT was successful. He is here today for a followup. He states he has some pain of 2 when doing steps but this has been improving over the past several weeks. Otherwise, he denies pain upon exam today. He denies fevers or chills. PHYSICAL EXAM: The operative lower extremity is soft, nontender, full and supple motion. No pain, no impingement. No instability. His ROM of 5-120 degrees, stable examination to varus and valgus stress with normal balance throughout the arc of motion. No palpable discomfort. The contralateral extremity has full motion, normal stability, no tenderness. Both extremities have normal neurovascular status. DIAGNOSTIC STUDIES/INTERPRETATION: Plain film radiographs reviewed. He has a left cemented total knee revision arthroplasty in good position and alignment. No evidence of prosthetic implant loosening or migration. No changes in imaging. IMPRESSION: 1.) Stable status post left total knee revision arthroplasty, approx 1.5 years out. 2.) Resolved patellar tendonitis, left knee. PLAN: I reviewed my findings with López. I am pleased with the outcome of intervention. He has made an excellent recovery and understands he is 95% recovered. I expect continued improvement in strength and mobility moving forward. I recommend followup in 2 years for repeat clinical and radiographic examination or sooner if any new symptoms develop. He will call with any questions or concerns in the meantime. I have reviewed the findings of the clinical client support administrator and agree with their assessment. Ortho Nurse - Established Patient Intake Room#: 1 Left Knee Revision checkup, doing great , some pain of 2 when doing steps, Clindamycin was ordered today for dental prophylaxis Date: 06/16/2022 10:17 AM Patient: López Cortés MR#: [id number] : 1950 Age: 72 y.o. Referring Physician: Barak Hebert MD Insurance: Payor: MEDICARE / Plan: MEDICARE A AND B / Product Type: *No Product type* / Chief Complaint Patient presents with Left Knee - Post Op Visit Visit Vitals Ht 1.727 m (5' 8 ) Wt 105.2 kg (232 lb) BMI 35.28 kg/m Pain Presence of Pain: complains of pain/discomfort Pain Location: knee, left Select Pain Scale: DVPRS (Defense and Veterans Pain Rating Scale) (Adult-Cognitively Intact) Pain Location: knee, left Select Pain Scale: DVPRS (Defense and Veterans Pain Rating Scale) (Adult-Cognitively Intact) Recent Labs Lab Results Component Value Date CRP 11.2 (H) 11/27/2021 Lab Results Component Value Date SEDRATE 27 (H) 11/27/2021 Lab Results Component Value Date WBC 13.1 (H) 10/29/2020 HGB 10.9 (L) 10/29/2020 HCT 34.0 (L) 10/29/2020 PLATELET 247 10/29/2020 MCV 86.4 10/29/2020 History Past Medical History: Diagnosis Date Arthritis Bruised kidney from a fall Essential hypertension, benign GERD (gastroesophageal reflux disease) Hyperlipidemia Migraine Past Surgical History: Procedure Laterality Date REVISION ARTHROPLASTY KNEE Left 10/28/2020 Laterality: Left; Surgeon: Barak Hebert MD; Location: [facility] KNEE SURGERY Left 05/07/2020 ---left tka KNEE SURGERY Right 11/22/2019 right tka-- GALL BLADDER SURGERY 09/08/2012 SHOULDER SURGERY Right Family History: His family history is not on file. Social History: His reports that he has quit smoking. His smoking use included cigarettes. He has never used smokeless tobacco. He reports previous alcohol use. He reports that he does not use drugs. Outpatient Medications Prior to Visit Medication Sig Dispense Refill aspirin EC [address] Take 81 mg by mouth daily. doxazosin 2 MG tablet 1 tablet lisinopril 10 MG tablet Take 10 mg by mouth daily. Multiple Vitamin (multivitamin) capsule Take 1 tablet by mouth daily. pantoprazole [address] tablet DR Take 40 mg by mouth daily. pravastatin 20 MG tablet Take 40 mg by mouth daily. SUMAtriptan 100 MG tablet Take 100 mg by mouth once. May repeat in 2 hr, MAX 200MG/24HR temazepam 15 MG capsule Take 15 mg by mouth at bedtime as needed. acetaminophen 325 MG tablet Take 2 tablets by mouth every 4 hours as needed for Mild Pain. 50 tablet 1 aspirin EC [address] Take 1 table twice a day for 30days. This medication is for blood clot prevention. (Patient not taking: Reported on 02/26/2021) 60 tablet 0 dexAMETHasone 4 MG/ML Solution injection 1 mL by Other route As directed for 18 doses. (1 cc 3 x a week at physical therapy via iontophoresis) for up to 18 doses. 30 mL 0 docusate 100 MG capsule Take 1 capsule by mouth 2 times daily. 60 capsule 0 doxazosin 4 MG tablet Take 4 mg by mouth Every night. meloxicam 7.5 MG tablet Take 1 tablet by mouth daily. (Patient not taking: Reported on 02/26/2021) 30 tablet 0 pregabalin 75 MG capsule Take 75 mg by mouth 2 times daily. No facility-administered medications prior to visit. Current Outpatient Medications: aspirin EC [address], Take 81 mg by mouth daily., Disp: , Rfl: doxazosin 2 MG tablet, 1 tablet, Disp: , Rfl: lisinopril 10 MG tablet, Take 10 mg by mouth daily., Disp: , Rfl: Multiple Vitamin (multivitamin) capsule, Take 1 tablet by mouth daily., Disp: , Rfl: pantoprazole [address] tablet DR, Take 40 mg by mouth daily., Disp: , Rfl: pravastatin 20 MG tablet, Take 40 mg by mouth daily., Disp: , Rfl: SUMAtriptan 100 MG tablet, Take 100 mg by mouth once. May repeat in 2 hr, MAX 200MG/24HR, Disp: , Rfl: temazepam 15 MG capsule, Take 15 mg by mouth at bedtime as needed., Disp: , Rfl: acetaminophen 325 MG tablet, Take 2 tablets by mouth every 4 hours as needed for Mild Pain., Disp: 50 tablet, Rfl: 1 aspirin EC [address], Take 1 table twice a day for 30days. This medication is for blood clot prevention. (Patient not taking: Reported on 02/26/2021), Disp: 60 tablet, Rfl: 0 dexAMETHasone 4 MG/ML Solution injection, 1 mL by Other route As directed for 18 doses. (1 cc 3 x a week at physical therapy via iontophoresis) for up to 18 doses., Disp: 30 mL, Rfl: 0 docusate 100 MG capsule, Take 1 capsule by mouth 2 times daily., Disp: 60 capsule, Rfl: 0 doxazosin 4 MG tablet, Take 4 mg by mouth Every night., Disp: , Rfl: meloxicam 7.5 MG tablet, Take 1 tablet by mouth daily. (Patient not taking: Reported on 02/26/2021), Disp: 30 tablet, Rfl: 0 pregabalin 75 MG capsule, Take 75 mg by mouth 2 times daily., Disp: , Rfl: Allergies: He is allergic to penicillins and sulfa antibiotics. documented in this encounter [facility] 05-26-2022 History of Present illness Narrative Review of Systems Constitutional: Negative for chills, fatigue and fever. Eyes: Negative for visual disturbance. Respiratory: Negative for shortness of breath. Cardiovascular: Negative for chest pain. Gastrointestinal: Negative for abdominal pain and blood in stool. Endocrine: Negative for polydipsia. Genitourinary: Negative for hematuria. Musculoskeletal: Negative for arthralgias and myalgias. Neurological: Negative for seizures. Hematological: Does not bruise/bleed easily. Psychiatric/Behavioral: Negative for dysphoric mood. 05/26/22 Chief Complaint Patient presents with Left Hand - Follow-up Follow Up- Bilat Basal Joint Arthritis/ Last Injection: 02/17/22- Pain Scale: 2/10 Bilat Right Hand - Follow-up Follow Up- Bilat Basal Joint Arthritis/ Last Injection: 02/17/22- Pain Scale: 2/10 Bilat HPI: López is here today in follow up of bilateral basal joint arthritis. I injected both basal joints at his prior encounter and he states the shots are working really well. He has very little pain at this point. Past Medical History: Diagnosis Date Arthritis Bruised kidney from a fall Essential hypertension, benign GERD (gastroesophageal reflux disease) Hyperlipidemia Migraine Past Surgical History: Procedure Laterality Date REVISION ARTHROPLASTY KNEE Left 10/28/2020 Laterality: Left; Surgeon: Barak Hebert MD; Location: [facility] OR KNEE SURGERY Left 05/07/2020 ---left tka KNEE SURGERY Right 11/22/2019 right tka-- GALL BLADDER SURGERY 09/08/2012 SHOULDER SURGERY Right Current Outpatient Medications: acetaminophen 325 MG tablet, Take 2 tablets by mouth every 4 hours as needed for Mild Pain., Disp: 50 tablet, Rfl: 1 aspirin EC [address], Take 81 mg by mouth daily., Disp: , Rfl: aspirin EC [address], Take 1 table twice a day for 30days. This medication is for blood clot prevention. (Patient not taking: Reported on 02/26/2021), Disp: 60 tablet, Rfl: 0 dexAMETHasone 4 MG/ML Solution injection, 1 mL by Other route As directed for 18 doses. (1 cc 3 x a week at physical therapy via iontophoresis) for up to 18 doses., Disp: 30 mL, Rfl: 0 docusate 100 MG capsule, Take 1 capsule by mouth 2 times daily., Disp: 60 capsule, Rfl: 0 doxazosin 4 MG tablet, Take 4 mg by mouth Every night., Disp: , Rfl: meloxicam 7.5 MG tablet, Take 1 tablet by mouth daily. (Patient not taking: Reported on 02/26/2021), Disp: 30 tablet, Rfl: 0 Multiple Vitamin (multivitamin) capsule, Take 1 tablet by mouth daily., Disp: , Rfl: pantoprazole [address] tablet DR, Take 40 mg by mouth daily., Disp: , Rfl: pravastatin 20 MG tablet, Take 40 mg by mouth daily., Disp: , Rfl: pregabalin 75 MG capsule, Take 75 mg by mouth 2 times daily., Disp: , Rfl: SUMAtriptan 100 MG tablet, Take 100 mg by mouth once. May repeat in 2 hr, MAX 200MG/24HR, Disp: , Rfl: temazepam 15 MG capsule, Take 15 mg by mouth at bedtime as needed., Disp: , Rfl: Allergies Allergen Reactions Penicillins Sulfa Antibiotics Social History Socioeconomic History Marital status: Spouse name: Not on file Number of children: Not on file Years of education: Not on file Highest education level: Not on file Occupational History Not on file Tobacco Use Smoking status: Former Smoker Types: Cigarettes Smokeless tobacco: Never Used Tobacco comment: quit 40 yrs ago Vaping Use Vaping Use: Never used Substance and Sexual Activity Alcohol use: Not Currently Drug use: Never Sexual activity: Not on file Other Topics Concern Not on file Social History Narrative Not on file Social Determinants of Health Financial Resource Strain: Not on file Food Insecurity: Not on file Transportation Needs: Not on file Physical Activity: Not on file Stress: Not on file Social Connections: Not on file Intimate Partner Violence: Not on file Housing Stability: Not on file No family history on file. Review of Systems Constitutional: Negative for chills, fatigue and fever. Eyes: Negative for visual disturbance. Respiratory: Negative for shortness of breath. Cardiovascular: Negative for chest pain. Gastrointestinal: Negative for abdominal pain and blood in stool. Endocrine: Negative for polydipsia. Genitourinary: Negative for hematuria. Musculoskeletal: Negative for arthralgias and myalgias. Neurological: Negative for seizures. Hematological: Does not bruise/bleed easily. Psychiatric/Behavioral: Negative for dysphoric mood. Physical Examination: Vitals: 05/26/22 0757 Temp: 97.7 degrees F (36.5 degrees C) TempSrc: Temporal Weight: 105.2 kg (232 lb) Height: 1.727 m (5' 8 ) Extremity: Exam is deferred today as to try not to aggravate his arthritis. Assessment: 1. Bilateral basal joint arthritis. Plan: We discussed the natural history of the shots and the potential for surgery or more injections in the future. He is doing well enough we will wait to see him back in 3 months and make further decisions at that time. documented in this encounter [facility] 02-17-2022 History of Present illness Narrative Review of Systems Constitutional: Negative for chills, fatigue and fever. Eyes: Negative for visual disturbance. Respiratory: Negative for shortness of breath. Cardiovascular: Negative for chest pain. Gastrointestinal: Negative for abdominal pain and blood in stool. Endocrine: Negative for polydipsia. Genitourinary: Negative for hematuria. Musculoskeletal: Positive for arthralgias. Negative for myalgias. Neurological: Negative for seizures. Hematological: Does not bruise/bleed easily. Psychiatric/Behavioral: Negative for dysphoric mood. Associated Order(s): SMALL JOINT/BURSA INJECTION AND/OR ASPIRATION: L thumb CMC Post-Procedure Diagnose(s): Primary osteoarthritis of first carpometacarpal joint of left hand SMALL JOINT/BURSA INJECTION AND/OR ASPIRATION: L thumb CMC Date/Time: 02/17/2022 1:00 PM Supporting Documentation Indications: pain Procedure Details: Location: thumb - L thumb CMC Needle size: 25 G Approach: radial Medication Verification: I have personally verified and performed the final check of the medication(s) used in this procedure prior to administration. The following items were included during the verification process for medication(s) administered: drug name, strength, volume, expiration, physical integrity and appearance of the medication(s). Medications administered: 1 mL ropivacaine 1 %; 40 mg methylPREDNISolone acetate 40 MG/ML Patient tolerance: patient tolerated the procedure well with no immediate complications Comments The risk and benefits of the injection were discussed with the patient and they did wish to proceed. The procedure is performed aseptically and tolerated by the patient. Preparation: Patient was prepped in the usual sterile fashion. The patient was prepped with alcohol. 02/17/22 Chief Complaint Patient presents with Left Thumb - Pain Right Thumb - Pain HPI: López is here today with a chief complaint of bilateral thumb pain he has had for years. He has had prior injections which have given him some relief. The left is worse than the right. Past Medical History: Diagnosis Date Arthritis Bruised kidney from a fall Essential hypertension, benign GERD (gastroesophageal reflux disease) Hyperlipidemia Migraine Past Surgical History: Procedure Laterality Date REVISION ARTHROPLASTY KNEE Left 10/28/2020 Laterality: Left; Surgeon: Barak Hebert MD; Location: [facility] KNEE SURGERY Left 05/07/2020 ---left tka KNEE SURGERY Right 11/22/2019 right tka-- GALL BLADDER SURGERY 09/08/2012 SHOULDER SURGERY Right Current Outpatient Medications: acetaminophen 325 MG tablet, Take 2 tablets by mouth every 4 hours as needed for Mild Pain., Disp: 50 tablet, Rfl: 1 aspirin EC [address], Take 81 mg by mouth daily., Disp: , Rfl: dexAMETHasone 4 MG/ML Solution injection, 1 mL by Other route As directed for 18 doses. (1 cc 3 x a week at physical therapy via iontophoresis) for up to 18 doses., Disp: 30 mL, Rfl: 0 docusate 100 MG capsule, Take 1 capsule by mouth 2 times daily., Disp: 60 capsule, Rfl: 0 Multiple Vitamin (multivitamin) capsule, Take 1 tablet by mouth daily., Disp: , Rfl: pantoprazole [address] tablet , Take 40 mg by mouth daily., Disp: , Rfl: pravastatin 20 MG tablet, Take 40 mg by mouth daily., Disp: , Rfl: SUMAtriptan 100 MG tablet, Take 100 mg by mouth once. May repeat in 2 hr, MAX 200MG/24HR, Disp: , Rfl: temazepam 15 MG capsule, Take 15 mg by mouth at bedtime as needed., Disp: , Rfl: aspirin EC [address], Take 1 table twice a day for 30days. This medication is for blood clot prevention. (Patient not taking: Reported on 02/26/2021), Disp: 60 tablet, Rfl: 0 doxazosin 4 MG tablet, Take 4 mg by mouth Every night., Disp: , Rfl: meloxicam 7.5 MG tablet, Take 1 tablet by mouth daily. (Patient not taking: Reported on 02/26/2021), Disp: 30 tablet, Rfl: 0 pregabalin 75 MG capsule, Take 75 mg by mouth 2 times daily., Disp: , Rfl: Allergies Allergen Reactions Penicillins Sulfa Antibiotics Social History Socioeconomic History Marital status: Spouse name: Not on file Number of children: Not on file Years of education: Not on file Highest education level: Not on file Occupational History Not on file Tobacco Use Smoking status: Former Smoker Types: Cigarettes Smokeless tobacco: Never Used Tobacco comment: quit 40 yrs ago Vaping Use Vaping Use: Never used Substance and Sexual Activity Alcohol use: Not Currently Drug use: Never Sexual activity: Not on file Other Topics Concern Not on file Social History Narrative Not on file Social Determinants of Health Financial Resource Strain: Not on file Food Insecurity: Not on file Transportation Needs: Not on file Physical Activity: Not on file Stress: Not on file Social Connections: Not on file Intimate Partner Violence: Not on file Housing Stability: Not on file History reviewed. No pertinent family history. Review of Systems Constitutional: Negative for chills, fatigue and fever. Eyes: Negative for visual disturbance. Respiratory: Negative for shortness of breath. Cardiovascular: Negative for chest pain. Gastrointestinal: Negative for abdominal pain and blood in stool. Endocrine: Negative for polydipsia. Genitourinary: Negative for hematuria. Musculoskeletal: Positive for arthralgias. Negative for myalgias. Neurological: Negative for seizures. Hematological: Does not bruise/bleed easily. Psychiatric/Behavioral: Negative for dysphoric mood. SMALL JOINT/BURSA INJECTION AND/OR ASPIRATION: L thumb CMC Date/Time: 02/17/2022 1:00 PM Supporting Documentation Indications: pain Procedure Details: Location: thumb - L thumb CMC Needle size: 25 G Approach: radial Medication Verification: I have personally verified and performed the final check of the medication(s) used in this procedure prior to administration. The following items were included during the verification process for medication(s) administered: drug name, strength, volume, expiration, physical integrity and appearance of the medication(s). Medications administered: 1 mL ropivacaine 1 %; 40 mg methylPREDNISolone acetate 40 MG/ML Patient tolerance: patient tolerated the procedure well with no immediate complications Comments The risk and benefits of the injection were discussed with the patient and they did wish to proceed. The procedure is performed aseptically and tolerated by the patient. Preparation: Patient was prepped in the usual sterile fashion. The patient was prepped with alcohol. Physical Examination: Vitals: 02/17/22 1258 Temp: 98.2 degrees F (36.8 degrees C) Weight: 109.8 kg (242 lb 1 oz) Height: 1.727 m (5' 8 ) Extremity: Exam today demonstrates point tenderness at the base of the thumb and a positive grind maneuver bilaterally. He is neurovascularly intact. Skin is warm and dry. Good finger motion. 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 Assessment: 1. Bilateral basal joint arthritis. Plan: He desires injections. He can't take anti-inflammatories because of his kidneys and he has braces which give him minimal relief. Both thumbs were injected per the procedure note. I will see him back in 3 months and see how the shots have helped. documented in this encounter [facility] 12-17-2021 History of Present illness Narrative HPI: López is here today for evaluation of his operative knee. 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 He was last evaluated on 10/29/21 by my [facility], he was instructed to use Voltaren gel topically with repeat ESR and CRP labs. His symptoms have persisted so he is here today for evaluation. He also states he has been working out at the gym doing 70lb leg lifts open chain on a consistent basis. His recent ESR on 11/27/21 was 27 and CRP on 11/27/21 was 11.2 but he states he had bronchitis approx one month ago. He is here today to determine future treatment options. PHYSICAL EXAM: The operative lower extremity is soft, nontender, full and supple motion. No pain, no impingement. No instability. His ROM is 3-120 degrees, stable examination to varus and valgus stress with normal balance throughout the arc of motion. Pain over the patellar tendon. No palpable defects. The contralateral extremity has full motion, normal stability, no tenderness. Both extremities have normal neurovascular status. DIAGNOSTIC STUDIES/INTERPRETATION: Plain film radiographs reviewed. He has a cemented left total knee revision arthroplasty in good position and alignment. No evidence of prosthetic implant loosening or migration. IMPRESSION: 1.) Stable status post left total knee revision arthroplasty, one year out. 2.) Patellar tendonitis, left knee. PLAN: I reviewed my findings with López. We discussed the diagnosis and treatment options. We discussed the importance of cross training without compromising tissue. I advised him to discontinue the open chain leg lifts and he agreed to comply. At this time, he is suffering brian patellar tendonitis. I will give him a formal script for physical therapy with modalities. He is in agreement with plan of care moving forward. If his symptoms don't improve with therapy and discontinuance of offending activities, he will call my office for repeat evaluation. All questions were answered. He has no further questions. I recommend followup in 8 months for repeat clinical and radiographic examination or sooner if any new symptoms develop. He will call with any questions or concerns in the meantime. A referral will be made to Dr. Floyd for bilateral thumb/ hand discomfort per his request. I have reviewed the findings of the clinical client support administrator and agree with their assessment. Ortho Nurse Established Patient Intake Room#: 2---Visit today to follow -up on Left knee pain. He has no pain when resting or sleeping. The pain starts after long walks or using stairs. He had a left TKA on 10-29-20. His pain today is a 3. Date: 12/17/2021 10:55 AM Patient: López Cortés MR#: [id number] : 1950 Age: 71 y.o. Referring Physician: Barak Hebert MD Insurance: Payor: MEDICARE / Plan: MEDICARE A AND B / Product Type: *No Product type* / Chief Complaint Patient presents with Left Knee - Pain, Condition Update There were no vitals taken for this visit. Pain Presence of Pain: complains of pain/discomfort Pain Location: knee, left Select Pain Scale: DVPRS (Defense and Veterans Pain Rating Scale) (Adult-Cognitively Intact) Pain Location: knee, left Select Pain Scale: DVPRS (Defense and Veterans Pain Rating Scale) (Adult-Cognitively Intact) Recent Labs Lab Results Component Value Date CRP 11.2 (H) 11/27/2021 Lab Results Component Value Date SEDRATE 27 (H) 11/27/2021 Lab Results Component Value Date WBC 13.1 (H) 10/29/2020 HGB 10.9 (L) 10/29/2020 HCT 34.0 (L) 10/29/2020 PLATELET 247 10/29/2020 MCV 86.4 10/29/2020 History Past Medical History: Diagnosis Date Arthritis Bruised kidney from a fall Essential hypertension, benign GERD (gastroesophageal reflux disease) Hyperlipidemia Migraine Past Surgical History: Procedure Laterality Date REVISION ARTHROPLASTY KNEE Left 10/28/2020 Laterality: Left; Surgeon: Barak Hebert MD; Location: [facility] OR KNEE SURGERY Left 05/07/2020 ---left tka KNEE SURGERY Right 11/22/2019 right tka-- GALL BLADDER SURGERY 09/08/2012 SHOULDER SURGERY Right Family History: His family history is not on file. Social History: His reports that he has quit smoking. His smoking use included cigarettes. He has never used smokeless tobacco. He reports previous alcohol use. He reports that he does not use drugs. Outpatient Medications Prior to Visit Medication Sig Dispense Refill acetaminophen 325 MG tablet Take 2 tablets by mouth every 4 hours as needed for Mild Pain. 50 tablet 1 aspirin EC [address] Take 81 mg by mouth daily. doxazosin 4 MG tablet Take 4 mg by mouth Every night. Multiple Vitamin (multivitamin) capsule Take 1 tablet by mouth daily. pantoprazole [address] tablet DR Take 40 mg by mouth daily. pravastatin 20 MG tablet Take 40 mg by mouth daily. SUMAtriptan 100 MG tablet Take 100 mg by mouth once. May repeat in 2 hr, MAX 200MG/24HR temazepam 15 MG capsule Take 15 mg by mouth at bedtime as needed. aspirin EC [address] Take 1 table twice a day for 30days. This medication is for blood clot prevention. (Patient not taking: Reported on 02/26/2021) 60 tablet 0 docusate 100 MG capsule Take 1 capsule by mouth 2 times daily. (Patient not taking: Reported on 02/26/2021) 60 capsule 0 meloxicam 7.5 MG tablet Take 1 tablet by mouth daily. (Patient not taking: Reported on 02/26/2021) 30 tablet 0 pregabalin 75 MG capsule Take 75 mg by mouth 2 times daily. No facility-administered medications prior to visit. Allergies: He is allergic to penicillins and sulfa antibiotics. Ortho Nurse Established Patient Intake Room#: 2---Visit today to follow -up on Left knee pain. He has no pain when resting or sleeping. The pain starts after long walks or using stairs. He had a left TKA on 10-29-20. His pain today is a 3. Date: 12/17/2021 10:55 AM Patient: López Cortés MR#: [id number] : 1950 Age: 71 y.o. Referring Physician: Barak Hebert MD Insurance: Payor: MEDICARE / Plan: MEDICARE A AND B / Product Type: *No Product type* / Chief Complaint Patient presents with Left Knee - Pain, Condition Update There were no vitals taken for this visit. Pain Presence of Pain: complains of pain/discomfort Pain Location: knee, left Select Pain Scale: DVPRS (Defense and Veterans Pain Rating Scale) (Adult-Cognitively Intact) Pain Location: knee, left Select Pain Scale: DVPRS (Defense and Veterans Pain Rating Scale) (Adult-Cognitively Intact) Recent Labs Lab Results Component Value Date CRP 11.2 (H) 11/27/2021 Lab Results Component Value Date SEDRATE 27 (H) 11/27/2021 Lab Results Component Value Date WBC 13.1 (H) 10/29/2020 HGB 10.9 (L) 10/29/2020 HCT 34.0 (L) 10/29/2020 PLATELET 247 10/29/2020 MCV 86.4 10/29/2020 History Past Medical History: Diagnosis Date Arthritis Bruised kidney from a fall Essential hypertension, benign GERD (gastroesophageal reflux disease) Hyperlipidemia Migraine Past Surgical History: Procedure Laterality Date REVISION ARTHROPLASTY KNEE Left 10/28/2020 Laterality: Left; Surgeon: Barak Hebert MD; Location: [facility] OR KNEE SURGERY Left 05/07/2020 ---left tka KNEE SURGERY Right 11/22/2019 right tka-- GALL BLADDER SURGERY 09/08/2012 SHOULDER SURGERY Right Family History: His family history is not on file. Social History: His reports that he has quit smoking. His smoking use included cigarettes. He has never used smokeless tobacco. He reports previous alcohol use. He reports that he does not use drugs. Outpatient Medications Prior to Visit Medication Sig Dispense Refill acetaminophen 325 MG tablet Take 2 tablets by mouth every 4 hours as needed for Mild Pain. 50 tablet 1 aspirin EC [address] Take 81 mg by mouth daily. doxazosin 4 MG tablet Take 4 mg by mouth Every night. Multiple Vitamin (multivitamin) capsule Take 1 tablet by mouth daily. pantoprazole [address] tablet DR Take 40 mg by mouth daily. pravastatin 20 MG tablet Take 40 mg by mouth daily. SUMAtriptan 100 MG tablet Take 100 mg by mouth once. May repeat in 2 hr, MAX 200MG/24HR temazepam 15 MG capsule Take 15 mg by mouth at bedtime as needed. aspirin EC [address] Take 1 table twice a day for 30days. This medication is for blood clot prevention. (Patient not taking: Reported on 02/26/2021) 60 tablet 0 docusate 100 MG capsule Take 1 capsule by mouth 2 times daily. (Patient not taking: Reported on 02/26/2021) 60 capsule 0 meloxicam 7.5 MG tablet Take 1 tablet by mouth daily. (Patient not taking: Reported on 02/26/2021) 30 tablet 0 pregabalin 75 MG capsule Take 75 mg by mouth 2 times daily. No facility-administered medications prior to visit. Allergies: He is allergic to penicillins and sulfa antibiotics. documented in this encounter [facility] 10-29-2021 History of Present illness Narrative HPI: Patient is here today for evaluation of their operative knee. He is status post total knee arthroplasty. He is about a year out, reports that he is doing well and is pleased with the outcome of the intervention. The knee feels better now than it did before, and he is not having any new symptoms with it. He has some pain posteriorly. Generalized irritability in the knee. PHYSICAL EXAM: The operative lower extremity is soft, nontender, full and supple motion. No pain, no impingement. No instability. He has full return of motion, 5-120 degrees, stable examination to varus and valgus stress with normal balance throughout the arc of motion. The contralateral extremity has full motion, normal stability, no tenderness. Both extremities have normal neurovascular status. Skin is otherwise intact. DIAGNOSTIC STUDIES/INTERPRETATION: Plain film radiographs reviewed. He has a Cemented revision total knee arthroplasty in good position and alignment. No evidence of prosthetic implant loosening or migration. IMPRESSION: Stable status post total revision knee arthroplasty, doing well. Past popliteus tendonitis left knee PLAN: I am pleased with the outcome of intervention. He has made an excellent recovery. I expect continued improvement in strength and mobility moving forward. I recommend followup in 2 years for repeat clinical and radiographic examination or sooner if any new symptoms develop. Tylenol may be used to manage any aches and pains as needed. He will call with any questions or concerns in the meantime. He had elevated ESR and CRP preoperatively but negative cultures and surgery. He has continued irritation along the past and and popliteus tendons. He has continued irritation with exercise in the knee. For his tendinitis and recommended Voltaren gel. I would like to repeat ESR and CRP as a surveillance for infection given his history of elevated markers. He will follow-up with Dr. Hebert for 6 weeks Voltaren gel fails to improve his symptoms. Sooner pending the lab results. Greater than 20 minutes time was spent in review of the medical records, review of previous imaging, and more than 50% of that time was spent on face to face time with patient. Bhavana Addison APRN-CARINE I have reviewed the findings of the clinical client support administrator and agree with their assessment. Ortho Nurse Established Patient Intake Room#: 4 Date: 10/29/2021 11:10 AM Patient: López Cortés MR#: [id number] : 1950 Age: 71 y.o. 1yr F/U L TKA Pt stated he is doing pretty good has pain and stiffness when going down steps and has to come down side ways. 2/10 on the pain scale. Referring Physician: Self, Self Insurance: Payor: MEDICARE / Plan: MEDICARE A AND B / Product Type: *No Product type* / Chief Complaint Patient presents with Left Knee - Follow-up Visit Vitals Temp 97.2 F (36.2 C) (Temporal) Ht 1.727 m (5' 8 ) Wt 108.9 kg (240 lb) BMI 36.49 kg/m Pain Recent Labs Lab Results Component Value Date CRP 38.8 (H) 10/02/2020 Lab Results Component Value Date SEDRATE 109 (H) 10/02/2020 Lab Results Component Value Date WBC 13.1 (H) 10/29/2020 HGB 10.9 (L) 10/29/2020 HCT 34.0 (L) 10/29/2020 PLATELET 247 10/29/2020 MCV 86.4 10/29/2020 History Past Medical History: Diagnosis Date Arthritis Bruised kidney from a fall Essential hypertension, benign GERD (gastroesophageal reflux disease) Hyperlipidemia Migraine Past Surgical History: Procedure Laterality Date REVISION ARTHROPLASTY KNEE Left 10/28/2020 Laterality: Left; Surgeon: Barak Hebert MD; Location: [facility] OR KNEE SURGERY Left 05/07/2020 ---left tka KNEE SURGERY Right 11/22/2019 right tka-- GALL BLADDER SURGERY 09/08/2012 SHOULDER SURGERY Right Family History: His family history is not on file. Social History: His reports that he has quit smoking. His smoking use included cigarettes. He has never used smokeless tobacco. He reports previous alcohol use. He reports that he does not use drugs. Outpatient Medications Prior to Visit Medication Sig Dispense Refill acetaminophen 325 MG tablet Take 2 tablets by mouth every 4 hours as needed for Mild Pain. 50 tablet 1 aspirin EC [address] Take 81 mg by mouth daily. clindamycin 150 MG capsule Take 4 capsules 1 hour before the procedure 8 capsule 1 doxazosin 4 MG tablet Take 4 mg by mouth Every night. Multiple Vitamin (multivitamin) capsule Take 1 tablet by mouth daily. pantoprazole [address] tablet DR Take 40 mg by mouth daily. pravastatin 20 MG tablet Take 40 mg by mouth daily. SUMAtriptan 100 MG tablet Take 100 mg by mouth once. May repeat in 2 hr, MAX 200MG/24HR temazepam 15 MG capsule Take 15 mg by mouth at bedtime as needed. aspirin EC [address] Take 1 table twice a day for 30days. This medication is for blood clot prevention. (Patient not taking: Reported on 02/26/2021) 60 tablet 0 docusate 100 MG capsule Take 1 capsule by mouth 2 times daily. (Patient not taking: Reported on 02/26/2021) 60 capsule 0 meloxicam 7.5 MG tablet Take 1 tablet by mouth daily. (Patient not taking: Reported on 02/26/2021) 30 tablet 0 pregabalin 75 MG capsule Take 75 mg by mouth 2 times daily. No facility-administered medications prior to visit. Current Outpatient Medications: acetaminophen 325 MG tablet, Take 2 tablets by mouth every 4 hours as needed for Mild Pain., Disp: 50 tablet, Rfl: 1 aspirin EC [address], Take 81 mg by mouth daily., Disp: , Rfl: clindamycin 150 MG capsule, Take 4 capsules 1 hour before the procedure, Disp: 8 capsule, Rfl: 1 doxazosin 4 MG tablet, Take 4 mg by mouth Every night., Disp: , Rfl: Multiple Vitamin (multivitamin) capsule, Take 1 tablet by mouth daily., Disp: , Rfl: pantoprazole [address] tablet DR, Take 40 mg by mouth daily., Disp: , Rfl: pravastatin 20 MG tablet, Take 40 mg by mouth daily., Disp: , Rfl: SUMAtriptan 100 MG tablet, Take 100 mg by mouth once. May repeat in 2 hr, MAX 200MG/24HR, Disp: , Rfl: temazepam 15 MG capsule, Take 15 mg by mouth at bedtime as needed., Disp: , Rfl: aspirin EC [address], Take 1 table twice a day for 30days. This medication is for blood clot prevention. (Patient not taking: Reported on 02/26/2021), Disp: 60 tablet, Rfl: 0 docusate 100 MG capsule, Take 1 capsule by mouth 2 times daily. (Patient not taking: Reported on 02/26/2021), Disp: 60 capsule, Rfl: 0 meloxicam 7.5 MG tablet, Take 1 tablet by mouth daily. (Patient not taking: Reported on 02/26/2021), Disp: 30 tablet, Rfl: 0 pregabalin 75 MG capsule, Take 75 mg by mouth 2 times daily., Disp: , Rfl: Allergies: He is allergic to penicillins and sulfa antibiotics. Ortho Nurse Established Patient Intake Room#: 4 Date: 10/29/2021 11:10 AM Patient: López Cortés MR#: [id number] : 1950 Age: 71 y.o. 1yr F/U L TKA Pt stated he is doing pretty good has pain and stiffness when going down steps and has to come down side ways. 2/10 on the pain scale. Referring Physician: Self, Self Insurance: Payor: MEDICARE / Plan: MEDICARE A AND B / Product Type: *No Product type* / Chief Complaint Patient presents with Left Knee - Follow-up Visit Vitals Temp 97.2 F (36.2 C) (Temporal) Ht 1.727 m (5' 8 ) Wt 108.9 kg (240 lb) BMI 36.49 kg/m Pain Recent Labs Lab Results Component Value Date CRP 38.8 (H) 10/02/2020 Lab Results Component Value Date SEDRATE 109 (H) 10/02/2020 Lab Results Component Value Date WBC 13.1 (H) 10/29/2020 HGB 10.9 (L) 10/29/2020 HCT 34.0 (L) 10/29/2020 PLATELET 247 10/29/2020 MCV 86.4 10/29/2020 History Past Medical History: Diagnosis Date Arthritis Bruised kidney from a fall Essential hypertension, benign GERD (gastroesophageal reflux disease) Hyperlipidemia Migraine Past Surgical History: Procedure Laterality Date REVISION ARTHROPLASTY KNEE Left 10/28/2020 Laterality: Left; Surgeon: Barak Hebert MD; Location: [facility] OR KNEE SURGERY Left 05/07/2020 ---left tka KNEE SURGERY Right 11/22/2019 right tka-- GALL BLADDER SURGERY 09/08/2012 SHOULDER SURGERY Right Family History: His family history is not on file. Social History: His reports that he has quit smoking. His smoking use included cigarettes. He has never used smokeless tobacco. He reports previous alcohol use. He reports that he does not use drugs. Outpatient Medications Prior to Visit Medication Sig Dispense Refill acetaminophen 325 MG tablet Take 2 tablets by mouth every 4 hours as needed for Mild Pain. 50 tablet 1 aspirin EC [address] Take 81 mg by mouth daily. clindamycin 150 MG capsule Take 4 capsules 1 hour before the procedure 8 capsule 1 doxazosin 4 MG tablet Take 4 mg by mouth Every night. Multiple Vitamin (multivitamin) capsule Take 1 tablet by mouth daily. pantoprazole [address] tablet DR Take 40 mg by mouth daily. pravastatin 20 MG tablet Take 40 mg by mouth daily. SUMAtriptan 100 MG tablet Take 100 mg by mouth once. May repeat in 2 hr, MAX 200MG/24HR temazepam 15 MG capsule Take 15 mg by mouth at bedtime as needed. aspirin EC [address] Take 1 table twice a day for 30days. This medication is for blood clot prevention. (Patient not taking: Reported on 02/26/2021) 60 tablet 0 docusate 100 MG capsule Take 1 capsule by mouth 2 times daily. (Patient not taking: Reported on 02/26/2021) 60 capsule 0 meloxicam 7.5 MG tablet Take 1 tablet by mouth daily. (Patient not taking: Reported on 02/26/2021) 30 tablet 0 pregabalin 75 MG capsule Take 75 mg by mouth 2 times daily. No facility-administered medications prior to visit. Current Outpatient Medications: acetaminophen 325 MG tablet, Take 2 tablets by mouth every 4 hours as needed for Mild Pain., Disp: 50 tablet, Rfl: 1 aspirin EC [address], Take 81 mg by mouth daily., Disp: , Rfl: clindamycin 150 MG capsule, Take 4 capsules 1 hour before the procedure, Disp: 8 capsule, Rfl: 1 doxazosin 4 MG tablet, Take 4 mg by mouth Every night., Disp: , Rfl: Multiple Vitamin (multivitamin) capsule, Take 1 tablet by mouth daily., Disp: , Rfl: pantoprazole [address] tablet DR, Take 40 mg by mouth daily., Disp: , Rfl: pravastatin 20 MG tablet, Take 40 mg by mouth daily., Disp: , Rfl: SUMAtriptan 100 MG tablet, Take 100 mg by mouth once. May repeat in 2 hr, MAX 200MG/24HR, Disp: , Rfl: temazepam 15 MG capsule, Take 15 mg by mouth at bedtime as needed., Disp: , Rfl: aspirin EC [address], Take 1 table twice a day for 30days. This medication is for blood clot prevention. (Patient not taking: Reported on 02/26/2021), Disp: 60 tablet, Rfl: 0 docusate 100 MG capsule, Take 1 capsule by mouth 2 times daily. (Patient not taking: Reported on 02/26/2021), Disp: 60 capsule, Rfl: 0 meloxicam 7.5 MG tablet, Take 1 tablet by mouth daily. (Patient not taking: Reported on 02/26/2021), Disp: 30 tablet, Rfl: 0 pregabalin 75 MG capsule, Take 75 mg by mouth 2 times daily., Disp: , Rfl: Allergies: He is allergic to penicillins and sulfa antibiotics. documented in this encounter [facility] Evaluation + Plan note Future Appointments Appointment Date:05/16/2023 09:45:00 AM Scheduled Provider:Darwin RICHMOND MD Location:[facility] Appointment Type:URO Office Visit [facility] Evaluation + Plan note Future Appointments Appointment Date:02/28/2024 01:40:00 PM Scheduled Provider:Obey ALAS MD Location:[facility] Appointment Type: Procedure 30 [facility] [place] General Surgery [place] Evaluation + Plan note Future Appointments Appointment Date:03/06/2024 02:40:00 PM Scheduled Provider:Obey ALAS MD Location:[facility] Appointment Type:GS Established 15 General Surgery [place] Evaluation note Diagnosis Hx of total knee arthroplasty, left- Primary [facility] Bilateral thumb pain- Primary Left knee pain, unspecified chronicity [facility] Diagnosis Bilateral thumb pain [facility] [place] [facility] Diagnosis Bilateral thumb pain [facility] Diagnosis Bilateral thumb pain- Primary Primary osteoarthritis of first carpometacarpal joint of left hand Primary localized osteoarthrosis, hand [facility]* Diagnosis Bilateral thumb pain- [facility] History of revision of total replacement of left knee joint- Primary [facility]* Diagnosis Hx of total knee arthroplasty, left- Primary [facility] N[facility] No data [facility] for [facility] No data available for this [facility] No data available for this section [facility] Summary Purpose Family History No Family History Records FoundNo Family History Records FoundNo Family History Records FoundNo Family History Records FoundNo Family History Records Found No data available for this section No data available for this section No data available for this section No Family History Records Found Advance Directives No Advanced Directives Records FoundDocuments on File Type Date Recorded Patient Dietetic Technician Registered Expl anation Advance Directives/Living Will 10/28/2020 9:12 AM LIVING WILL, POA Latest Code Status on File Code Status Date Activated Date Inactivated Comments Full Code 10/28/2020 3:43 PM Documents on File Type Date Recorded Patient Dietetic Technician Registered Expl anation Advance Directives/Living Will 10/28/2020 9:12 AM LIVING WILL, POA Latest Code Status on File Code Status Date Activated Date Inactivated Comments Full Code 10/28/2020 3:43 PM Latest Code Status on File Code Status Date Activated Date Inactivated Comments Full Code 10/28/2020 3:43 PM Reason for Referral Status Reason Specialty Diagnoses / Procedures Referred By Contact Referred To Contact Auth Not Needed Nuclear Medicine Diagnoses Pain in prosthetic joint, initial encounter Procedures NUC BONE SCAN WHOLE BODY Barak Hebert MD [address] [place] [address] [facility] Nuclear Medicine [address] [place] [address] Status Reason Specialty Diagnoses / Procedures Referred By Contact Referred To Contact Auth Not Needed Nuclear Medicine Diagnoses Pain in prosthetic joint, initial encounter Procedures NUC WBC STUDY NC ABSCESS IMAGING, WHOLE BODY Barak Hebert MD [address] [place], [place] [phone] [facility] Nuclear Medicine [address] [place], [place] [phone] Status Reason Specialty Diagnoses / Procedures Referred By Contact Referred To Contact Auth Not Needed Nuclear Medicine Diagnoses Pain in prosthetic joint, initial encounter Procedures NUC BONE MARROW LIMITED AREA NC BONE MARROW IMAGING, LTD Barak Hebert MD [address] [place] [phone] [facility] Nuclear Medicine [address] [place] [phone] Status Reason Specialty Diagnoses / Procedures Referred By Contact Referred To Contact Pending Review Diagnoses Left knee pain, unspecified chronicity Procedures XR BONE LENGTH STUDY Barak Hebert MD [address] [place] [phone] Status Reason Specialty Diagnoses / Procedures Referred By Contact Referred To Contact Pending Review Diagnoses Left knee pain, unspecified chronicity Procedures XR KNEE LEFT 3 VIEWS Barak Hebert MD [address] [place] [phone] Status Reason Specialty Diagnoses / Procedures Referred By Contact Referred To Contact Closed Nuclear Medicine Diagnoses Pain in prosthetic joint, subsequent encounter Procedures NUC 3 PHASE LIMITED BONE SCAN NC BONE IMAGING, 3 PHASE Bhavana Addison, GLORIA-CARINE [address] [place] [phone] [facility] Nuclear Medicine [address] [place] [phone] Status Reason Specialty Diagnoses / Procedures Referred By Contact Referred To Contact New Request Diagnoses Hx of total knee arthroplasty, left Procedures XR KNEE LEFT 3 VIEWS Kaila Richmond PA-C [address] [place] [phone] Status Reason Specialty Diagnoses / Procedures Referred By Contact Referred To Contact Closed Nuclear Medicine Diagnoses Pain in prosthetic joint, initial encounter Procedures NUC BONE MARROW LIMITED AREA NC BONE MARROW IMAGING, LTD Barak Hebert MD [address] [place] [phone] [facility] Nuclear Medicine [address] [place] [phone] Specialty Diagnoses / Procedures Referred By Contac t Referred To Contact Diagnoses Hx of total knee arthroplasty, left Procedures XR KNEE LEFT 3 VIEWS Bhavana Addison, GLORIA-CARINE [address] [place] [phone] Referral ID Status Reason Start Date Expiration Date V isits Requested Visits Authorized [id number] New Request 10/22/2021 11/16/2022 1 1 Specialty Diagnoses / Procedures Referred By Contac t Referred To Contact Physical Therapy Diagnoses Left knee pain, unspecified chronicity Barak Hebert MD [address] [place] [phone] Referral ID Status Reason Start Date Expiration Date V isits Requested Visits Authorized [id number] New Request 12/17/2021 01/11/2023 1 1 Scheduling Instructions . Specialty Diagnoses / Procedures Referred By Contac t Referred To Contact Orthopaedic Surgery Diagnoses Bilateral thumb pain Barak Hebert MD [address] [place] [phone] Gadiel Floyd MD [address] [place] [phone] Referral ID Status Reason Start Date Expiration Date V isits Requested Visits Authorized [id number] New Request 12/17/2021 01/11/2023 1 1 Specialty Diagnoses / Procedures Referred By Contac t Referred To Contact Diagnoses Bilateral thumb pain Procedures XR THUMB LEFT Gadiel Floyd MD [address] [place] [phone] Referral ID Status Reason Start Date Expiration Date V isits Requested Visits Authorized [id number] New Request 02/11/2022 03/08/2023 1 1 Specialty Diagnoses / Procedures Referred By Contac t Referred To Contact Diagnoses History of revision of total replacement of left knee joint Procedures XR KNEE LEFT 3 VIEWS Barak Hebert MD [address] [place] [phone] Referral ID Status Reason Start Date Expiration Date V isits Requested Visits Authorized [id number] New Request 06/15/2022 07/10/2023 1 1 Referral ID Status Reason Start Date Expiration Date V isits Requested Visits Authorized [id number] New Request 11/22/2023 12/16/2024 1 1 History of Present Illness * Barak Hebert MD - 09/11/2020 1:30 PM EDT Associated Order(s): LARGE JOINT/BURSA INJECTION AND/OR ASPIRATION: L knee Post-Procedure Diagnose(s): Left knee pain, unspecified chronicity; Pain in prosthetic joint, initial encounter HPI: Patient is here today to be evaluated for left knee pain. He is a pleasant 70 y.o. male. He ishere today as a referral from Dr. Ortega. Primary complaint is pain and discomfort. He has experienced a progressive decline in physical function and quality of life secondary to the discomfort in the left knee. He is status post a left total knee arthroplasty by Dr. Ortega on 05/07/2020. Delmar suffered a fall on 07/10/2020. Since the fall he has followed up with Dr. Ortega. His recent CRP was 2.6 (reference range of <5) and ESR was 78 (reference range of 0-20). Dr. Ortega did attempt an aspiration at two different times but was unable to aspirate fluid. The more he is on it, the more it hurts. He feels the knee is so swollen and feels warm to the the touch. He is weary of his symptoms and he is here today for a second opinion and is interested in what options are available to him today. He denies fever or chills. His pain is a 2-6 on a 10 point scale today. PHYSICAL EXAM: This is an alert, oriented, and age-appropriate male. He is in no distress. Pleasantand cooperative. EXTREMITIES: The upper extremities have no gross deformities. Normal stability. Skin Intact. 5/5 motor. Intact sensation. Normal neurovascular status. Normal coordination. The lower extremities have no gross deformities. Normal stability. Skin Intact. 5/5 motor. Intact sensation. Normal neurovascular status. Normal coordination. Range of motion upon exam today is 90-105. Stable examination to varus and valgus stress. The left knee is red, swollen and several degrees warmer whencompared to the right knee. Painful range of motion. Full motion of hip. No pain. No impingement. No instability. Contralateral leg has normal alignment. Full motion. No pain. No impingement. No instability. IMAGING: Plain film radiographs were reviewed. He has a total knee arthroplasty in place. Radiolucencies and scalloping surrounding the prosthesis as noted on the imaging. IMPRESSION: 1.) Status post a left total knee arthroplasty. 2.) History of fall. 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 4.) Aseptic vrs septic, possible traumatic in nature,left knee. PLAN: I have reviewed my findings with patient. We have gone over the diagnosis and treatment and have talked about his options for management. We discussed his symptoms and the possible contributionof either prosthetic loosening and/or prosthetic infection. I will attempt another aspiration todayto rule out prosthetic infection. ASPIRATION: After explanation of the risks, benefits and alternatives, the lateral aspect of the knee was prepped in a sterile standard fashion. Local Lidocaine was used to anesthetize the region. The area was re-prepped and an aspiration was performed with an 18 gauge needle. 0 ml of fluid was obtained and will be sent for additional testing including alpha defensins, synovial CRP, cell count with differential and moya culture. The region was cleaned and a dressing applied. The patient tolerated the aspiration well. We discussed in great detail the risks, benefits, and alternatives to a left knee revision arthroplasty. López understands that this can be life threatening if his symptoms are infection induced. The patient understands that the potential benefits are reduced pain and improved function. The patient also understands the complex nature of revision surgery and that the elevated risks include, but are not limited to: bleeding, infection, neurovascular injury including foot drop or paralysis, dislocation, component failure, implant loosening, ligament or tendon disruption, fracture, stiffness, chronic pain, chronic disability, need for further surgery, blood clots in the extremities or lungs, stroke, heart attack, loss of limb, and ultimately loss of life. In particular the patient understands the increased risk of revision surgery such as arik-prosthetic fracture, infection, component failure or loosening, nerve injury, blood vessel injury, loss of leg or life. The understand revision jack yelena may take longer and may require more extensive exposure and potentially osteotomies and that this may lead to additional morbidity or mortality. Despite these risks, the patient would like to proceed with surgical planning. Today, we will initiate the pre-surgical process including nasal MRSA screening, scheduling an appointment for [facility] and the potential surgical date, and reviewing and signing the consent forms. I will also order a bone marrow scintography and a tagged white bloodcell scan to rule out prosthetic infection. My office will notify him with results to further discuss plan of care. LARGE JOINT/BURSA INJECTION AND/OR ASPIRATION: L knee Date/Time: 09/11/2020 1:30 PM Supporting Documentation Indications: pain Procedure Details: Location: knee - L knee Local Anesthetic: lidocaine 1% Needle size: 18 G Medication Verification: I have personally verified and performed the final check of the medication(s) used in this procedure prior to administration. The following items were included during the verification process for medication(s) administered: drug name, strength, volume, expiration, physical integrity and appearance of the medication(s). Patient tolerance: patient tolerated the procedure well with no immediate complications The patient was prepped with Chloraprep. Vitals: 09/11/20 1355 Temp: 97.1 degrees F (36.2 degrees C) TempSrc: Temporal Weight: 95.3 kg (210 lb 3.2 oz) Height: 1.727 m (5' 8 ) Pain Presence of Pain: complains of pain/discomfort Pain Location: knee, left Select Pain Scale: DVPRS (Defense and Veterans Pain Rating Scale) (Adult- Cognitively Intact) Pain Location: knee, left Select Pain Scale: DVPRS (Defense and Veterans Pain Rating Scale) (Adult- Cognitively Intact) Recent Labs No results found for: CRP No results found for: SEDRATE No results found for: WBC, WBCCOUNT, WBCFETAL, HGB, HCT, PLATELET, MCV Past Medical History: Diagnosis Date Arthritis Essential hypertension, benign Hyperlipidemia Migraine Past Surgical History: Procedure Laterality Date KNEE SURGERY Left 05/07/2020 ---left tka KNEE SURGERY Right 11/22/2019 right tka-- GALL BLADDER SURGERY 09/08/2012 History reviewed. No pertinent family history. Social History Socioeconomic History Marital status: Spouse name: Not on file Number of children: Not on file Years of education: Not on file Highest education level: Not on file Occupational History Not on file Social Needs Financial resource strain: Not on file Food insecurity Worry: Not on file Inability: Not on file Transportation needs Medical: Not on file Non-medical: Not on file Tobacco Use Smoking status: Former Smoker Types: Cigarettes Smokeless tobacco: Never Used Substance and Sexual Activity Alcohol use: Not Currently Drug use: Not on file Sexual activity: Not on file Lifestyle Physical activity Days per week: Not on file Minutes per session: Not on file Stress: Not on file Relationships Social connections Talks on phone: Not on file Gets together: Not on file Attends temple service: Not on file Active member of club or organization: Not on file Attends meetings of clubs or organizations: Not on file Relationship status: Not on file Intimate partner violence Fear of current or ex partner: Not on file Emotionally abused: Not on file Physically abused: Not on file Forced sexual activity: Not on file Other Topics Concern Not on file Social History Narrative Not on file Current Outpatient Medications: aspirin EC [address], Take 81 mg by mouth daily., Disp: , Rfl: doxazosin 4 MG tablet, Take 4 mg by mouth Every night., Disp: , Rfl: pantoprazole [address] DR, Take 40 mg by mouth daily., Disp: , Rfl: pravastatin 20 MG tablet, Take 40 mg by mouth daily., Disp: , Rfl: pregabalin 75 MG capsule, Take 75 mg by mouth 2 times daily., Disp: , Rfl: SUMAtriptan 100 MG tablet, Take 100 mg by mouth once. May repeat in 2 hr, MAX 200MG/24HR, Disp: , Rfl: temazepam 15 MG capsule, Take 15 mg by mouth at bedtime as needed., Disp: , Rfl: traMADol 50 MG tablet, Take 50 mg by mouth at bedtime., Disp: , Rfl: Allergies Allergen Reactions Penicillins Sulfa Antibiotics * Shea Pride LPN - 09/11/2020 1:30 PM EDT Ortho Nurse Patient Intake Room#: 2--c/o of Left knee pain. He had a left TKA done on 05/07/[address] Ortega . He then fell on 07/10/2020. Since this time he has had pain in his knee . He did follow up with Dr. Ortega and had Esr- crp . The last was drawn on . crp was 2.6 and the esr was 78. Dr. Grissom did try to asper ate the knee X-2 but was not able to get a specimen. The patient has pain today of 2-6. Date: 09/11/2020 2:10 PM Patient: López Cortés MR#: [id number] : 1950 Age: 70 y.o. Referring Physician: Desiree Ortega DO Insurance: Payor: MEDICARE / Plan: MEDICARE A AND B / Product Type: *No Product type* / Chief Complaint Patient presents with Left Knee - Pain, New Patient Knee Pain Visit Vitals Temp 97.1 F (36.2 C) (Temporal) Ht 1.727 m (5' 8 ) Wt 95.3 kg (210 lb 3.2 oz) BMI 31.96 kg/m Pain Presence of Pain: complains of pain/discomfort Pain Location: knee, left Select Pain Scale: DVPRS (Defense and Veterans Pain Rating Scale) (Adult- Cognitively Intact) Pain Location: knee, left Select Pain Scale: DVPRS (Defense and Veterans Pain Rating Scale) (Adult- Cognitively Intact) Recent Labs No results found for: CRP No results found for: SEDRATE No results found for: WBC, WBCCOUNT, WBCFETAL, HGB, HCT, PLATELET, MCV History Past Medical History: Diagnosis Date Arthritis Essential hypertension, benign Hyperlipidemia Migraine Past Surgical History: Procedure Laterality Date KNEE SURGERY Left 05/07/2020 ---left tka KNEE SURGERY Right 11/22/2019 right tka-- GALL BLADDER SURGERY 09/08/2012 Family History: His family history is not on file. Social History: His reports that he has quit smoking. His smoking use included cigarettes. He has never used smokeless tobacco. He reports previous alcohol use. No history on file for drug. Additional Social History Y N Notes Do you live alone? [] [x] Who lives with you: Do you have children? [x] [] How many: 2 Do you currently work? [] [x] What type of work do you do: Do you have stairs in the home? [] [x] How many do you have to climb to enter your home: 3 What services do you currently receive at home? [] [x] Name: Do you have transportation to go to outpatient therapy if needed? [x] [] What Equipment do you have at home? [x] [] [x]Walker, []Crutches, []Commode Chair, [x]Shower []Chair, [x]cane, []bracing Are you followed by a consumer insights intern? [] [x] Name: Are you followed by pain management? [] [x] Name: Are you followed by any other specialists? [] [x] Name: Outpatient Medications Prior to Visit Medication Sig Dispense Refill aspirin EC [address] Take 81 mg by mouth daily. doxazosin 4 MG tablet Take 4 mg by mouth Every night. pantoprazole [address] tablet DR Take 40 mg by mouth daily. pravastatin 20 MG tablet Take 40 mg by mouth daily. pregabalin 75 MG capsule Take 75 mg by mouth 2 times daily. SUMAtriptan 100 MG tablet Take 100 mg by mouth once. May repeat in 2 hr, MAX 200MG/24HR temazepam 15 MG capsule Take 15 mg by mouth at bedtime as needed. traMADol 50 MG tablet Take 50 mg by mouth at bedtime. No facility-administered medications prior to visit. Allergies: He is allergic to penicillins and sulfa antibiotics. Y N Are you allergic to any metals? [] [x] If yes, what metals: Review of Systems System Y N Symptoms Constitutional [x] [] Weight Loss---since surg.---35 lbs. [] [x] Weight Gain [] [x] Chronic Fever [] [x] Insomnia Eyes [] [x] Resent Vision Change [] [x] Cataracts [] [x] Glaucoma [] [x] Any Hx of Metal Fragments in the Eye ENT [] [x] Loss of hearing [] [x] Hearing Aids [] [x] Seasonal Allergies [] [x] Dental Issues Cardiovascular [] [x] Chest Pain [] [x] Angina [] [x] Stent [x] [] Hypertension [] [x] Heart Murmur [] [x] Irregular Pulse [] [x] Pacemaker [] [x] Palpitations [x] [] High cholesteral Respiratory [] [x] Wheezing [] [x] Shortness of Breath [] [x] Pneumonia [] [x] Bronchitis [] [x] Sleep Apnea [] [x] COPD [] [x] Date/ LOC of last CXR: Gastrointestinal [x] [] Heartburn [x] [x] Indigestion [] [x] Constipation [] [x] Ulcer [] [x] GI Stomach Bleed [] [x] Diarrhea [] [x] Colon Cancer [x] [] Acid Reflux [] [x] Blood in Stools Musculoskeletal [x] [] Arthritis [] [x] Muscle Weakness [x] [] Joint Pain [] [x] Back Pain [] [x] Fibromyalgia [] [x] Bone Infection [] [x] Swelling Multiple Joints [] [x] Reflex Sympathetic Dystrophy Skin [] [x] Chronic Rash [] [x] Ulcers [] [x] Eczema [] [x] Psoriasis [] [x] Skin Cancer [] [x] Melanoma Neurologic [] [x] Numbness [] [x] Weakness or loss of sensation in arms or legs [] [x] Leg Pain / Sciatica [] [x] Headaches [] [x] Loss of bowel or bladder control Psychiatric [] [x] Anxiety [] [x] Claustrophobia [] [x] Other Psychiatric Problems Hematologic [] [x] Easy Bruising [] [x] Easy Bleeding [] [x] Blood Transfusion Date: Endocrine [] [x] Hypothyroid [] [x] Hyperthyroid [] [x] Hot Flashes [] [x] Hormone Replacement [] [x] Prednisone Use Does pt have dentures? Yes/ upper plate only documented in this encounter* Nafisa Shaw, PT - 10/29/2020 3:20 PM EST 10/29/20 1302 Time In/Out Time In 1302 Time Out 1405 Total Visit Time 63 minutes Total Treatment Time 63 minutes Subjective RN Approved Intervention as tolerated Existing Precautions/Restrictions fall Subjective Reports Pt seated in the recliner and was agreeable to PT session. Pt currently reporting 4/10 L knee pain. Cognitive Status Examination Orientation Status (Cognition) oriented x 4 Level of Consciousness alert Able to Follow Commands (Communication) WFL Personal Safety and Judgment intact General Pain Documentation (Adult, OB, Peds) Presence of Pain complains of pain/discomfort Pain Location knee, left Pain Management Interventions ambulated Select Pain Scale (4/10) Objective Therapeutic Interventions Pt met seated in the recliner and was agreeable to participate in PT session. Pt educated again regarding transfers to ensure the FWW is always in front of him prior to standing. Pt verbalizing his understanding. Multiple transfers performed throughout session with occasional verbal cues required to ensure FWW was within an appropriate distance. Pt then completed hamstring stretch for 3 x 30 second holds and calf stretches for 3 x 30 second holds on the L LE. Gentle patellar mobs completed along with STM to hamstrings on the L LE. L knee extension stretches completedusing knee MD for 5 x 15 second holds. Pt then completed LAQ, ankle pumps, quad sets, glut sets, SLR , SAQ and heel slides on the L LE for 1x20. Following all stretches and exercises pt achieving 5-95degrees of L knee ROM. Drainage noted from the hemo- vac, RN notified and hemo-vac pulled during session. Gait training performed with pt ambulating 300ft using the FWW and SBA. Verbal cues provided to improve toe out and heel strike on the L LE. Pt then ascended/descended 4 steps x2 trials using B handrails and SBA. Pt utilizing correct sequencing with no cueing required. Pt then ambulated 300ft using the FWW and SBA to return to his room. Pt educated on elevating the legs with the ice pack on and exercise prescription. Pt left seated in the recliner with LEs elevated, ice pack on and call sal within reach. Transfer Skill: Sit To Stand, Rehab Eval Addison (Sit-Stand Transfers) other (see comments) (SBA) Physical Assist/Nonphysical Assist: Sit/Stand 1 person assist Weight-Bearing Restrictions: Sit/Stand weight-bearing as tolerated Assistive Device For Transfer: Sit/Stand 2 wheeled walker Gait Skills, PT Eval Level of Addison: Gait stand-by assist Physical Assist/Nonphysical Assist: Gait 1 person assist Weight-Bearing Restrictions: Gait weight-bearing as tolerated Assistive Device For Transfer: Gait 2 wheeled walker Gait Distance (300ft) Gait Analysis, PT Eval Gait Pattern Used swing-through gait Gait Deviations Identified (Gait) decreased heel strike;other (see comments) (toe out ) Impairments Contributing To Gait Deviations pain;decreased ROM Stair Negotiation Level of Addison: Stair Negotiation stand-by assist Physical Assist/Nonphysical Assist: Stair Negotiation 1 person assist Weight-Bearing Restrictions: Stair Negotiation weight-bearing as tolerated Assistive Device for Transfer: Stair Negotiation rails Number of stairs 8 Stair Railings present on both sides Clinical Impression Today's Treatment Included ther ex, transfer training, gait training, stair training and patient education Assessment Progress toward goals Pt progressing with all established goals at this time. Pt does have musculartightness surrounding L knee resulting in difficulty with L knee ROM. Plan Plan for next visit Next visit progress L knee ROM and all mobility tasks. * Nafisa Shaw, PT - 10/29/2020 3:20 PM EST 10/29/20 0824 Time In/Out Time In 0824 Time Out 0935 Total Visit Time 71 minutes Total Treatment Time 71 minutes Subjective RN Approved Intervention as tolerated Existing Precautions/Restrictions fall Subjective Reports Pt met seated in the recliner and was agreeable to participate in PT session. Cognitive Status Examination Orientation Status (Cognition) oriented x 4 Level of Consciousness alert Able to Follow Commands (Communication) WFL Personal Safety and Judgment intact General Pain Documentation (Adult, OB, Peds) Presence of Pain complains of pain/discomfort Pain Location knee, left Pain Management Interventions ambulated Select Pain Scale (4/10 up to 6/10 with exercises) Objective Therapeutic Interventions Pt met seated in the recliner and was agreeable to participate in PT session. Sit to stand completed with SBA however pt educated to ensure the FWW is always in front of himprior to standing. Gait training performed with pt ambulating 75ft and 100ft using the FWW and SBA.Verbal cues provided to improve toe out and heel strike. Pt educated on the proper sequencing for car transfers with demonstration provided. Pt complete car transfer with SBA without cues provided. Pt educated on proper sequencing to ascend/descend stairs with demonstration provided. Pt then ascended/descended 4 steps x2 trials using B handrails and CGA. Pt utilizing correct sequencing with minimal cueing provided. Pt then completed hamstring stretch for 3 x 30 second holds and calf stretches for 3 x 30 second holds on the L LE. Gentle patellar mobs completed along with STM to hamstrings on the L LE. L knee extension stretches completed using knee MD for 5 x 15 second holds. Pt then completed LAQ, ankle pumps, quad sets, glut sets, SLR, SAQ and heel slides on the L LE for 1x20. Following all stretches and exercises pt achieving 8-94 degrees of L knee ROM. Pt then ambulated 125ft using the FWW and SBA to return to his room. Pt left seated in the recliner with LEs elevated, ice pack on and call sal within reach. Transfer Skill: Sit To Stand, Rehab Eval Addison (Sit-Stand Transfers) other (see comments) (SBA) Physical Assist/Nonphysical Assist: Sit/Stand 1 person assist Weight-Bearing Restrictions: Sit/Stand weight-bearing as tolerated Assistive Device For Transfer: Sit/Stand 2 wheeled walker Gait Skills, PT Eval Level of Addison: Gait stand-by assist Physical Assist/Nonphysical Assist: Gait 1 person assist Weight-Bearing Restrictions: Gait weight-bearing as tolerated Assistive Device For Transfer: Gait 2 wheeled walker Gait Distance other (see comments) (125ft) Gait Analysis, PT Eval Gait Pattern Used swing-through gait Gait Deviations Identified (Gait) decreased heel strike;other (see comments) (toe out) Impairments Contributing To Gait Deviations pain;decreased ROM Stair Negotiation Level of Addison: Stair Negotiation contact guard Physical Assist/Nonphysical Assist: Stair Negotiation 1 person assist Weight-Bearing Restrictions: Stair Negotiation weight-bearing as tolerated Assistive Device for Transfer: Stair Negotiation rails Number of stairs 8 Stair Railings present on both sides Clinical Impression Today's Treatment Included ther ex, transfer training, gait training, stair training and patient education Assessment Progress toward goals Pt progressing with all established goals at this time. Pt does have musculartightness surrounding L knee resulting in difficulty with L knee ROM. Plan Plan for next visit Next visit progress L knee ROM and all mobility tasks. * Kimberly Silva, OT - 10/29/2020 12:06 PM EST 10/29/20 1125 Time In/Out Time In 1125 Subjective RN Approved Intervention as tolerated Existing Precautions/Restrictions fall Subjective Reports Pt sitting up in recliner chair agreeable to session Cognitive Status Examination Orientation Status (Cognition) oriented x 4 Level of Consciousness alert Able to Follow Commands (Communication) WFL Personal Safety and Judgment intact General Pain Documentation (Adult, OB, Peds) Presence of Pain denies pain/discomfort Assessment Assessment Narrative Pt complete total body sponge bathing and dressing tasks with instruction for hygiene and incision management, sitting for LB dressing tasks, technique to doff/robel bilateral TEDhose requiring min assist for L ZACKARY hose and ABD pad management. Pt complete functional mobility into bathroom for standing at sink hygiene tasks including oral and shaving of face with no loss of balance and correct walker placement, return to room. review sequencing and safety with walk in vs. tub shower transfer patient reports shower chair only fits in tub shower review use of grab bar to step over tub and to step into walk in shower patient report understanding. Pt complete dressing and sponge bathing tasks min assist only for ZACKARY hose set up for bathing, ice pack donned and call light in reach upon exit Therapist Information License # [id number] * Esperanza Avila MD - 10/28/2020 6:47 PM EST INPATIENT REHAB / SWINGBED PROGRESS NOTE Admit Date: 10/28/2020 Date of Evaluation: 10/28/20206:47 PM [facility] / Skilled bed LOS: 0 days SUBJECTIVE: Patient seen and examined. Chart, medications, labs all reviewed. Patient denies all reports of SAMANIEGO, BV, LH, Dizziness, Fever, Chills, Nausea, Vomiting, Diarrhea, or Pain. This is a 70-year-old male with the possible medical history of for hypertension gastroesophageal reflux disease hyperlipidemia and migraine underwent left knee revision arthroplasty with Dr. Hebert on October 28 currently patient denies chest pain shortness of breath or palpitations no abdominal pain. Vital Signs: Blood pressure 141/86, pulse 90, temperature 98.5 F (36.9 C), temperature source Temporal, resp. rate 18, height 1.727 m (5' 8 ), weight 96.2 kg (212 lb), SpO2 97 %. O2 Sat (%): 97 % (10/28 1612) O2 Device: nasal cannula (10/28 1612) Flow (L/min): 2 (10/28 1612) Intake and Output: Intake/Output Summary (Last 24 hours) at 10/28/2020 1847 Last data filed at 10/28/2020 1412 Gross per 24 hour Intake 2000 ml Output 475 ml Net 1525 ml Lines/Drains/Airways/Wounds: Peripheral IV Line - Single Lumen 10/28/20 1005 metacarpal vein (top of hand), right 20 gauge (Active) Insertion Site WDL WDL 10/28/20 1515 Site Preparation/Maintenance dressing: dry and intact;dressing: transparent semipermeable 10/28/20 1515 Securement sterile tape strips, secured with 10/28/20 1515 Lumen 1 Patency/Maintenance IV infusing 10/28/20 1515 Phlebitis 0-->no symptoms 10/28/20 1515 Infiltration 0-->no symptoms 10/28/20 1515 Indication/Daily Review of Necessity fluid therapy 10/28/20 1502 Perineural Catheter 10/28/20 1230 left knee (Active) Site Assessment clean;dry;intact 10/28/20 1515 Incision (Adult, Pediatric) 10/28/20 1230 Left knee (Active) Dressing Appearance no drainage;dry;intact 10/28/20 1515 Appearance elizabeth intact;well approximated 10/28/20 1515 Drainage Amount none 10/28/20 1515 Wound Interventions ice pack/gel pack 10/28/20 1515 Dressing other (see comments) 10/28/20 1515 Intake/Output last 3 shifts: I/O last 3 completed shifts: In: 1999 [I.V.:1999] Out: 475 [Urine:400] Daily Weight: Wt Readings from Last 3 Encounters: 10/28/20 96.2 kg (212 lb) 10/02/20 95.3 kg (210 lb) 09/11/20 95.3 kg (210 lb 3.2 oz) PHYSICAL EXAM: Review of Systems Constitutional: Negative for fatigue, fever and unexpected weight change. HENT: Negative for congestion, facial swelling and voice change. Eyes: Negative for pain. Respiratory: Negative for cough and shortness of breath. Cardiovascular: Negative for palpitations and leg swelling. Gastrointestinal: Negative for abdominal distention. Endocrine: Negative for cold intolerance and heat intolerance. Genitourinary: Negative for dysuria and urgency. Musculoskeletal: Positive for arthralgias. Negative for gait problem and myalgias. Skin: Negative for rash. Allergic/Immunologic: Negative for immunocompromised state. Neurological: Negative for seizures and weakness. Hematological: Does not bruise/bleed easily. Psychiatric/Behavioral: Negative for dysphoric mood. Physical Exam Constitutional: Appearance: He is obese. He is not ill-appearing. Eyes: Pupils: Pupils are equal, round, and reactive to light. Neck: Vascular: No JVD. Cardiovascular: Rate and Rhythm: Normal rate and regular rhythm. Pulses: Normal pulses. Carotid pulses are 2+ on the right side and 2+ on the left side. Heart sounds: Normal heart sounds. Pulmonary: Effort: No respiratory distress. Breath sounds: No wheezing. Abdominal: General: There is no distension. Tenderness: There is no abdominal tenderness. Musculoskeletal: Right lower leg: No edema. Left lower leg: No edema. Skin: General: Skin is warm and dry. Findings: No rash. Neurological: Mental Status: He is alert and oriented to person, place, and time. Sensory: No sensory deficit. Motor: No weakness. Gait: Gait normal. Deep Tendon Reflexes: Reflexes normal. Psychiatric: Mood and Affect: Mood normal. Judgment: Judgment normal. Diagnostics: Admission on 10/28/2020 Component Date Value ABO/RH(D) 10/28/2020 O POSITIVE IMPRESSION /PLAN: Present on Admission: Mechanical loosening of internal left knee prosthetic joint Active Problems: Mechanical loosening of internal left knee prosthetic joint Obesity: body mass index of 30.0-34.9 Continue PT/OT Left knee arthroplasty revision continue with pain control and DVT prevention per orthopedic orders Hypertension continue to monitor Hyperlipidemia continue with statins Protonix for GI protection * Kimberly Silva OT - 10/28/2020 6:10 PM EST 10/28/20 1735 Time In/Out Time In 1735 Time Out 1803 Total Visit Time 28 minutes General Information RN Approved Intervention as tolerated Admitting Diagnosis loosening of left knee prothesis Surgical Procedure left knee revision with hemovac and on-Q Past Surgical History Past Surgical History: Procedure Laterality Date KNEE SURGERY Left 05/07/2020 ---left tka KNEE SURGERY Right 11/22/2019 right tka-- GALL BLADDER SURGERY 09/08/2012 SHOULDER SURGERY Right Past Medical History Past Medical History: Diagnosis Date Arthritis Bruised kidney from a fall Essential hypertension, benign GERD (gastroesophageal reflux disease) Hyperlipidemia Migraine Existing Precautions/Restrictions fall Previous Level of Function Bed Mobility/Transfers independent Bathing independent Upper Body Dressing independent Lower Body Dressing independent Grooming independent Toileting independent Eating independent Home Management Skills independent General Pain Documentation (Adult, OB, Peds) Presence of Pain denies pain/discomfort Home Setting Residence Home Lives With spouse First floor bed/bathroom yes;tub shower;walk-in shower Second floor bed/bathroom no Number of Stairs to Enter Home 3 Number of Stairs Within Home 0 Equipment Available wheeled walker;shower chair;elevated toilet seat;hand held shower hose Cognitive Status Examination Orientation Status (Cognition) oriented x 4 Level of Consciousness alert Able to Follow Commands (Communication) WFL Personal Safety and Judgment intact Sensory Examination Sensory Examination WFL Range of Motion (ROM) Range of Motion Examination bilateral upper extremity ROM was WFL Manual Muscle Testing (MMT) Dominant Hand right Bed Mobility Skill: Supine to Sit, Rehab Eval Level of Addison: Supine/Sit stand-by assist Physical Assist/Nonphysical Assist: Supine/Sit 1 person assist Transfer Skill: Sit to Stand, Rehab Eval Level of Addison: Sit/Stand contact guard Physical Assist/Nonphysical Assist: Sit/Stand 1 person assist Weight-Bearing Restrictions: Sit/Stand weight-bearing as tolerated Assistive Device for Transfer: Sit/Stand wheeled walker Upper Body Dressing Level of Addison independent Physical Assist/Nonphysical Assist set-up required Lower Body Dressing Level of Addison moderate assist (50% patients effort) Physical Assist/Nonphysical Assist 1 person assist (including ZACKARY hose ) Toileting Level of Addison contact guard Physical Assist/Nonphysical Assist 1 person assist Grooming Addison Level (Grooming) supervision;wash face, hands General Therapy Interventions Planned Therapy Interventions (OT Eval) ADL retraining;balance training;transfer training Assessment Assessment Narrative Pt demonstrates good safety awareness during functional mobility and transfer training following initial instruction, patient trained on toileting transfer CGA and walker placement standing at sink for hand hygiene, LB dressing techniques donning underwear and shorts CGA in sitting and standing with training for hemovac and onQ management, call light in reach and ice pack donned upon exit Clinical Impression Co-evaluation/co-treatment performed? Yes, combination of simultaneous billable and non-billable treatment Rehab Potential (OT Eval) good, to achieve stated therapy goals Therapy Frequency 7 times a week Initial Evaluation/Screen Completed? yes Today's Treatment Included OT evaluation, self care training Continue care plan yes Goals Goals For Discharge Pt will return home Discussed risk / benefits with patient Therapist Recommendations At Discharge Recommendations OT Services not recommended at Discharge Plan Plan Narrative continue with bathing, dressing, bathroom transfer and hygiene training Therapist Information License # [id number] 1. Pt will complete LB dressing MOD I 2. Pt will complete sponge bathing MOD I 3. Pt will complete toileting MOD I 4. Pt will complete hygiene/grooming standing at sink independent 5. Pt will complete walk in shower transfer MOD I * Nafisa Shaw, PT - 10/28/2020 6:03 PM EST 10/28/20 1725 Time In/Out Time In 1725 Time Out 1754 Total Visit Time 29 minutes Total Treatment Time 29 minutes General Information RN Approved Intervention as tolerated Surgical Procedure L TKA revision with ON-Q Past Medical History Past Medical History: Diagnosis Date Arthritis Bruised kidney from a fall Essential hypertension, benign GERD (gastroesophageal reflux disease) Hyperlipidemia Migraine Past Surgical History Past Surgical History: Procedure Laterality Date KNEE SURGERY Left 05/07/2020 ---left tka KNEE SURGERY Right 11/22/2019 right tka-- GALL BLADDER SURGERY 09/08/2012 SHOULDER SURGERY Right Existing Precautions/Restrictions fall Left Lower Extremity weight bearing as tolerated Home Setting Residence Home Lives With spouse First floor bed/bathroom yes Number of Stairs to Enter Home 3 Number of Stairs Within Home 0 Stair Railings at Home no rail Equipment Available wheeled walker Previous Level of Function Ambulation Skills independent Assistive Device straight cane Level of Ambulation community General Pain Documentation (Adult, OB, Peds) Presence of Pain denies pain/discomfort Cognitive Status Examination Orientation Status (Cognition) oriented x 4 Level of Consciousness alert Able to Follow Commands (Communication) WFL Personal Safety and Judgment intact Range of Motion (ROM) Range of Motion Examination deficits as listed below (L knee ROM 10-93 degrees) Manual Muscle Testing (MMT) Manual Muscle Testing Results deficits as listed below (B hips 4+/5; R knee 4+5; L knee 4/5; B ankles 5/5) Bed Mobility Skill: Supine to Sit, Rehab Eval Level of Addison: Supine/Sit stand-by assist Physical Assist/Nonphysical Assist: Supine/Sit 1 person assist Transfer Skill: Sit To Stand, Rehab Eval Addison (Sit-Stand Transfers) contact guard Physical Assist/Nonphysical Assist: Sit/Stand 1 person assist Weight-Bearing Restrictions: Sit/Stand weight-bearing as tolerated Assistive Device For Transfer: Sit/Stand 2 wheeled walker Gait Skills, PT Eval Level of Addison: Gait contact guard Physical Assist/Nonphysical Assist: Gait 1 person assist Weight-Bearing Restrictions: Gait weight-bearing as tolerated Assistive Device For Transfer: Gait 2 wheeled walker Gait Distance 75 feet Gait Analysis, PT Eval Gait Pattern Used swing-through gait Gait Deviations Identified (Gait) decreased gait speed;decreased heel strike;decreased step length Impairments Contributing To Gait Deviations decreased ROM;decreased strength Stair Negotiation Level of Addison: Stair Negotiation (not assessed at this time) Balance Additional Documentation (Seated: Good; Standing: Good) Sensory Examination Sensory Examination WFL General Interventions Planned Therapy Interventions edema control;gait training;joint mobilization;neuromuscular re-education;ROM;strengthening;stretching;transfer training Additional Comments PT consult received, chart reviewed and PT evaluation completed. Pt performed glut sets, quad sets, heel slides, SAQ, SLR, and ankle pumps on the L LE for 1x10. Increase muscle tension noted with decreased ROM in both flexion and extension motions. Pt educated on sequencing for transfers and gait using FWW, and on heel-toe gait pattern. Pt with slight toe out on the L LE notedwhile ambulating. Discussed with pt his plan to return home with PT services. Pt left seated in the recliner with the occupational therapist present. Assessment Assessment Narrative Pt is a 70 year old male s/p L TKA revision with ON-Q. Pt demonstrating safe mobility at this time with proper use of the FWW. Pt with impaired L knee ROM and decreased L LE strength. Pt is expected to improve with PT interventions and be safe to return home at time of discharge. Pt requires skilled PT services to address L knee ROM, L LE strength and overall functional mobility. Discharge Recommendations Recommend pt return home with spouse and receive HH PT services. Clinical Impression Co-evaluation/co-treatment performed? Yes, combination of simultaneous billable and non-billable treatment Criteria for Skilled Therapeutic Interventions Met (PT Eval) yes Impairments Found (PT Eval) gait, locomotion, and balance;muscle performance;ROM (range of motion) Rehab Potential (PT Eval) good, to achieve stated therapy goals Therapy Frequency 2 times a day Initial Evaluation/Screen Completed? yes Continue care plan yes Today's Treatment Included PT evaluation, ther ex, transfer training, gait training and patient education Therapist Recommendations At Discharge Recommendations PT Services recommended at Discharge Plan Plan Narrative Next visit progress mobility and ROM, practice car transfers and steps, and review/perform HEP. PT Goals: 1. Patient will perform all transfers with mod I to ensure safety at discharge. 2. Pt will ambulate 200ft with FWW and mod I to ensure safety with household ambulation. 3. Pt will increase surgical knee ROM to 5-100 degrees for improved mobility. 4. Pt will perform a modified car transfer with SB assist to ensure patient will be safe when leaving home. 5. Pt will ambulate up and down 3 steps with rail and SB assist to ensure safety in and out of home. 6. Pt will be independent with HEP per total joint binder in order to continue with ROM progressionat home. 7. Pt will demonstrate understanding of proper procedures for edema control. documented in this encounter* Kaila Richmond PA-C - 11/19/2020 11:00 AM EST López Cortés is 3 weeks s/p left TKA revision. He is happy with his recovery to date. He is participating in PT in the outpatient setting, using ASA for DVT prophylaxis along with compression stockings. He is using tylenol and Oxycodone with Mobic for pain control.. Visit Vitals Temp 97.6 F (36.4 C) (Temporal) Ht 1.727 m (5' 8 ) Wt 102.1 kg (225 lb) BMI 34.21 kg/m Current Outpatient Medications: acetaminophen 325 MG tablet, Take 2 tablets by mouth every 4 hours as needed for Mild Pain., Disp: 50 tablet, Rfl: 1 aspirin EC [address], Take 1 table twice a day for 30days. This medication is for blood clot prevention., Disp: 60 tablet, Rfl: 0 clindamycin 150 MG capsule, Take 4 capsules 1 hour before the procedure, Disp: 8 capsule, Rfl: 1 docusate 100 MG capsule, Take 1 capsule by mouth 2 times daily., Disp: 60 capsule, Rfl: 0 doxazosin 4 MG tablet, Take 4 mg by mouth Every night., Disp: , Rfl: meloxicam 7.5 MG tablet, Take 1 tablet by mouth daily. Take with food., Disp: 30 tablet, Rfl: 0 Multiple Vitamin (multivitamin) capsule, Take 1 tablet by mouth daily., Disp: , Rfl: pantoprazole [address] tablet DR, Take 40 mg by mouth daily., Disp: , Rfl: pravastatin 20 MG tablet, Take 40 mg by mouth daily., Disp: , Rfl: pregabalin 75 MG capsule, Take 75 mg by mouth 2 times daily., Disp: , Rfl: SUMAtriptan 100 MG tablet, Take 100 mg by mouth once. May repeat in 2 hr, MAX 200MG/24HR, Disp: , Rfl: temazepam 15 MG capsule, Take 15 mg by mouth at bedtime as needed., Disp: , Rfl: aspirin EC [address], Take 81 mg by mouth daily., Disp: , Rfl: oxyCODONE 5 MG tablet, Take 1-2 tabs po q 4-6 hours PRN pain. Wean as tolerated., Disp: 40 tablet, Rfl: 0 Today on examination he is reporting pain as 4-5/10. Incision is healing well without erythema, drainage, induration or evidence of dehiscence. There is moderate global knee swelling. Calves are softand non tender bilaterally with negative Homans sign. Distal neurovascular exam is intact. ROM is reported as 2-100 degrees in physical therapy, today it is found to be 2- 95 degrees. He is stable to varus and valgus stress. Diagnostic studies/interpretation: X-rays were reviewed today and reveal cemented total knee arthroplasty in good position and alignment unchanged from the immediate postop films. Assessment/Plan: 3 weeks postop left TKA. Continue DVT prophylaxis as prescribed. Continue physical therapy Follow up [address] Hebert for clinical and radiologic evaluation unless an earlier need should arise. All questions and concerns were addressed at this appointment and the patient expressed understanding. Antibiotic prophylaxis was given today. Would like a refill on Oxycodone and another month of Mobic which is prescirbed. Kaila Richmond PA-C * Tammymarlenisemaj Radha - 11/19/2020 11:00 AM EST Ortho Nurse Established Patient Intake Room#: 4 3wk Post-op LTKA; Derm Revision both components left total knee arthroplasty. Weight bearing as tolerated PT 2 times a week, wearing zackary hose, ATB sent to pharmacy, using cane for walking , 03/30 comes and goes. Date: 11/19/2020 11:07 AM Patient: López Cortés MR#: [id number] : 1950 Age: 70 y.o. Referring Physician: Self, Self Insurance: Payor: MEDICARE / Plan: MEDICARE A AND B / Product Type: *No Product type* / Chief Complaint Patient presents with Left Knee - Post Op Visit There were no vitals taken for this visit. Pain Recent Labs Lab Results Component Value Date CRP 38.8 (H) 10/02/2020 Lab Results Component Value Date SEDRATE 109 (H) 10/02/2020 Lab Results Component Value Date WBC 13.1 (H) 10/29/2020 HGB 10.9 (L) 10/29/2020 HCT 34.0 (L) 10/29/2020 PLATELET 247 10/29/2020 MCV 86.4 10/29/2020 History Past Medical History: Diagnosis Date Arthritis Bruised kidney from a fall Essential hypertension, benign GERD (gastroesophageal reflux disease) Hyperlipidemia Migraine Past Surgical History: Procedure Laterality Date REVISION ARTHROPLASTY KNEE Left 10/28/2020 Laterality: Left; Surgeon: Barak Hebert MD; Location: [facility] KNEE SURGERY Left 05/07/2020 ---left tka KNEE SURGERY Right 11/22/2019 right tka-- GALL BLADDER SURGERY 09/08/2012 SHOULDER SURGERY Right Family History: His family history is not on file. Social History: His reports that he has quit smoking. His smoking use included cigarettes. He has never used smokeless tobacco. He reports previous alcohol use. He reports that he does not use drugs. Outpatient Medications Prior to Visit Medication Sig Dispense Refill acetaminophen 325 MG tablet Take 2 tablets by mouth every 4 hours as needed for Mild Pain. 50 tablet 1 aspirin EC [address] Take 81 mg by mouth daily. aspirin EC [address] Take 1 table twice a day for 30days. This medication is for blood clot prevention. 60 tablet 0 docusate 100 MG capsule Take 1 capsule by mouth 2 times daily. 60 capsule 0 doxazosin 4 MG tablet Take 4 mg by mouth Every night. meloxicam 7.5 MG tablet Take 1 tablet by mouth daily. Take with food. 30 tablet 0 Multiple Vitamin (multivitamin) capsule Take 1 tablet by mouth daily. oxyCODONE 5 MG tablet Take 1-2 tabs po q 4-6 hours PRN pain. Wean as tolerated. 40 tablet 0 pantoprazole [address] tablet DR Take 40 mg by mouth daily. pravastatin 20 MG tablet Take 40 mg by mouth daily. pregabalin 75 MG capsule Take 75 mg by mouth 2 times daily. SUMAtriptan 100 MG tablet Take 100 mg by mouth once. May repeat in 2 hr, MAX 200MG/24HR temazepam 15 MG capsule Take 15 mg by mouth at bedtime as needed. No facility-administered medications prior to visit. Current Outpatient Medications: acetaminophen 325 MG tablet, Take 2 tablets by mouth every 4 hours as needed for Mild Pain., Disp: 50 tablet, Rfl: 1 aspirin EC [address], Take 81 mg by mouth daily., Disp: , Rfl: aspirin EC [address], Take 1 table twice a day for 30days. This medication is for blood clot prevention., Disp: 60 tablet, Rfl: 0 docusate 100 MG capsule, Take 1 capsule by mouth 2 times daily., Disp: 60 capsule, Rfl: 0 doxazosin 4 MG tablet, Take 4 mg by mouth Every night., Disp: , Rfl: meloxicam 7.5 MG tablet, Take 1 tablet by mouth daily. Take with food., Disp: 30 tablet, Rfl: 0 Multiple Vitamin (multivitamin) capsule, Take 1 tablet by mouth daily., Disp: , Rfl: oxyCODONE 5 MG tablet, Take 1-2 tabs po q 4-6 hours PRN pain. Wean as tolerated., Disp: 40 tablet, Rfl: 0 pantoprazole [address] tablet DR, Take 40 mg by mouth daily., Disp: , Rfl: pravastatin 20 MG tablet, Take 40 mg by mouth daily., Disp: , Rfl: pregabalin 75 MG capsule, Take 75 mg by mouth 2 times daily., Disp: , Rfl: SUMAtriptan 100 MG tablet, Take 100 mg by mouth once. May repeat in 2 hr, MAX 200MG/24HR, Disp: , Rfl: temazepam 15 MG capsule, Take 15 mg by mouth at bedtime as needed., Disp: , Rfl: Allergies: He is allergic to penicillins and sulfa antibiotics. documented in this encounter Assessments Diagnosis Left knee pain, unspecified chronicity- Primary Pain in prosthetic joint, initial encounter Diagnosis Pain in prosthetic joint, subsequent encounter Mechanical loosening of internal left knee prosthetic joint, initial encounter Diagnosis Acute postoperative pain of left knee- Primary Preop testing Preoperative examination, unspecified Mechanical loosening of internal left knee prosthetic joint, initial encounter Obesity: body mass index of 30.0-34.9 Obesity, unspecified Diagnosis Hx of total knee arthroplasty, left- Primary Postoperative pain of knee Diagnosis Pain in prosthetic joint, 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, initial encounter Hospital Course * Esperanza Avila MD - 10/29/2020 8:21 AM EST Discharge Summary Name: López Cortés Age: 70 y.o. Birthday: 1950 Admit Date: 10/28/2020 9:04 AM Discharge Date: 10/29/2020 Discharge Time: 10/29/2020 Discharge Unit: [facility] Inpatient Rehab unit Unit Length of Stay: LOS: 1 day Admission Information Admitting Physician: Barak Hebert MD Discharge Information Discharge Physician: Esperanza Avila MD Problem List Active Hospital Problems Diagnosis Mechanical loosening of internal left knee prosthetic joint Obesity: body mass index of 30.0-34.9 Resolved Hospital Problems No resolved problems to display. Brief Summary of Hospital Course for Discharge Summary: this is a 70-year-old male with the significant history of hypertension hyperlipidemia gastroesophageal reflux disease and came to the hospital for an elective revision arthroplasty left knee. Consequently patient the condition is stable no fever no shortness of breath no chest pain no palpitations. Physical therapy initiated and plan for discharge home with follow-up with primary care and orthopedic services Brief Summary of Consults for Discharge Summary: Brief Summary of Procedures and Imaging for Discharge Summary: Summary of last selected lab results and date obtained: Lab Results Component Value Date WBC 13.1 (H) 10/29/2020 HGB 10.9 (L) 10/29/2020 HCT 34.0 (L) 10/29/2020 PLATELET 247 10/29/2020 MCV 86.4 10/29/2020 Lab Results Component Value Date SODIUM 137 10/02/2020 POTASSIUM 4.5 10/02/2020 CHLORIDE 101 10/02/2020 CO2 24 10/02/2020 BUN 22 (H) 10/02/2020 CREATSERUM 1.24 10/02/2020 GLUCOSE 96 10/02/2020 Lab Results Component Value Date ALT 18 10/02/2020 AST 20 10/02/2020 ALKPHOS 105 10/02/2020 BILITOTAL 0.8 10/02/2020 Brief Summary of Labs for Discharge Summary: No discharge procedures on file. Current Outpatient Meds: Medication List for when you go home START taking these medications acetaminophen 325 MG tablet Take 2 tablets by mouth every 4 hours as needed for Mild Pain. Commonly known as: TYLENOL docusate 100 MG CAPS Take 1 capsule by mouth 2 times daily. Commonly known as: COLACE doxycycline hyclate 100 MG CAPS Take 1 capsule by mouth 2 times daily for 7 days. Commonly known as: VIBRAMYCIN meloxicam 7.5 MG TABS Take 1 tablet by mouth daily. Take with food. Commonly known as: MOBIC oxyCODONE 5 MG TABS Take 1-2 tabs po q 4-6 hours PRN pain. Wean as tolerated. Commonly known as: ROXICODONE For diagnoses: Acute postoperative pain of left knee CHANGE how you take these medications * aspirin EC [address] Take 81 mg by mouth daily. What changed: Another medication with the same name was added. Make sure you understand how and when to take each. * aspirin EC [address] Take 1 table twice a day for 30days. This medication is for blood clot prevention. What changed: You were already taking a medication with the same name, and this prescription was added. Make sure you understand how and when to take each. * The same medication is listed twice. Please discuss with your provider. CONTINUE taking these medications doxazosin 4 MG TABS Take 4 mg by mouth Every night. Commonly known as: CARDURA multivitamin CAPS Take 1 tablet by mouth daily. pantoprazole [address] tablet DR Take 40 mg by mouth daily. Commonly known as: PROTONIX pravastatin 20 MG TABS Take 40 mg by mouth daily. Commonly known as: PRAVACHOL pregabalin 75 MG CAPS Take 75 mg by mouth 2 times daily. Commonly known as: LYRICA SUMAtriptan 100 MG TABS Take 100 mg by mouth once. May repeat in 2 hr, MAX 200MG/24HR Commonly known as: IMITREX temazepam 15 MG CAPS Take 15 mg by mouth at bedtime as needed. Commonly known as: RESTORIL STOP taking these medications traMADol 50 MG TABS Commonly known as: ULTRAM Follow-up: Tess Fuentes MD [address] [facility] [id number] In 1 week SANJUANITA louise 1 week Barak Hebert MD [address] [facility] [id number] Call in 3 days Upcoming Appointments (up to five)-Some appointments for Medical Center outpatient clinics or diagnostic testing locations are not displayed below Provider Department Dept Phone 11/19/2020 11:00 AM Kaila Richmond [facility] [phone] Total coordination of discharge care taking greater that 30 minutes documented in this encounter Discharge Instructions * Discharge Instr - Activity* Esperanza Avila MD - 10/29/2020 8:19 AM EST As tolerated * Discharge Instr - Diet* Esperanza Avila MD - 10/29/2020 8:20 AM EST As tolerated * Discharge Instr - Notify* Santa [place] RN - 10/29/2020 10:08 AM EST Contact Office ([phone]) if: > Total Knee ROM < 90 degrees upon admission to home health or at any time during recovery period > Any falls or injuries > Redness, drainage or swelling at the incision site that is out of the ordinary from post-operative findings (minor redness, swelling and warmth around the entire knee are common post-operatively) > Patient non-compliance with assistive devices during gait > Fever > 101 degrees. For low grade fevers use Incentive Spirometry @ 10 puffs per hour and tylenol as directed. * Discharge Instr - Wound Care* Sun Lopez RN - 10/29/2020 9:29 AM EST Your incision is closed with elizabeth. These are to be removed 10-14 days after you surgery by your home health nurse. Your surgery day was 10/28/20. Do not get your incision wet until after your elizabeth have been removed. Once the elizabeth have been removed and you are able to shower do not saturate or submerge extremity in water (i.e. Bathtub, hot tub, etc.) until cleared by the provider. Do not wash/scrub directly over/on your incision. Pat your incision dry do not rub your incision with a towel. Do not place any lotions, ointments, creams or powder on your incision or operative leg. When applying your new ABD pad after showering as a reminder do not place any tape over you ABD pad. Your ZACKARY hose are to hold your pad in place. * Additional Instructions* Santa Zurita RN - 10/29/2020 You have been discharged with prescriptions for all new medications including oxycodone 5mg tabletstake 1-2 tablets by mouth every four hours as needed for pain dispense 12 tablets no refills and celebrex 200mg capsules take one capsule by mouth two times a day for six weeks dispense # 84 capsulesno refills. All of your other medications : Aspirin, tylenol, colace and multivitamin are over the counter medications that your prescription insurance may not cover. If they do not you will need to purchase these medications over the counter. You have been given printed educational handouts on allnew medications. Please refer to your green discharge folder for handouts. You have been given seven ABD pads, one ice gel compression wrap, six ice gel packs, two pairs of ZACKARY hose and all personal belongings. If at any time you have questions please refer to your green discharge folder with all at home care instructions. If at any time you feel you have an emergency please dial 911 [address] you to your closest ER. You have been given printed educational handouts on all new medications. Please refer to your greendischarge folder for handouts. You have been given seven ABD pads, one ice gel compression wrap, six ice gel packs, two pairs of ZACKARY hose and all personal belongings. If at any time you have questions please refer to your green discharge folder with all at home care instructions. If at any time you feel you have an emergency please dial [address] you to your closest ER. Zackary Hose: > Help reduce the risk of blood clots and decrease swelling > To be worn bilaterally to the lower extremities for 30 days post-op > Patients can take their zackary hose off for 1 hour for every 8 hours that they wear them Medications: > Patients will be sent home with prescriptions, including medication for pain to be taken as directed. Stay ahead and do not allow your pain to get out of control. > If prescribed Aspirin, take twice a day for 30 days. Do not skip a dose, this is your medication for the prevention of blood clots. > If you have not had a bowel movement by your 3rd post-operative day you will need to use a gentle over the counter laxative such as Milk of magnesia, Fiberlax, Miralax, etc. Bowels need to move within 3 days or take action. Gel Ice Packs > Change every 4 hours or as needed for swelling and pain for at least the first 2 weeks Ambulation > Weight bearing status : as tolerated > Above weight bearing status as tolerated with a walker then progress to a cane if stable, unless noted otherwise by the physician or therapist. For Knee Replacements: > Physical therapy 3 times per week for 6 full weeks > Maintain uninterrupted therapy if transitioning from home therapy to out patient therapy > No therabands over your wound/incision > Patients should be doing home exercises on days they are not working with a therapist > Do not rest with a pillow under the knee, work on flexion and extension exercises to improve range of motion You have been given printed educational handouts on all new medications. Please refer to your greendischarge folder for handouts. You have been given seven ABD pads, one ice gel compression wrap, six ice gel packs, two pairs of ZACKARY hose and all personal belongings. If at any time you have questions please refer to your green discharge folder with all at home care instructions. If at any time you feel you have an emergency please dial 911 [address] you to your closest ER. Diet Resume diet tolerated. Zackary Hose: > Help reduce the risk of blood clots and decrease swelling > To be worn bilaterally to the lower extremities for 30 days post-op > Patients can take their zackary hose off for 1 hour for every 8 hours that they wear them Medications: > Patients will be sent home with prescriptions, including medication for pain to be taken as directed. Stay ahead and do not allow your pain to get out of control. > If prescribed Aspirin, take twice a day for 30 days. Do not skip a dose, this is your medication for the prevention of blood clots. > If you have not had a bowel movement by your 3rd post-operative day you will need to use a gentle over the counter laxative such as Milk of magnesia, Fiberlax, Miralax, etc. Bowels need to move within 3 days or take action. Gel Ice Packs > Change every 4 hours or as needed for swelling and pain for at least the first 2 weeks Dressings: Your incision is closed with elizabeth. These are to be removed 10-14 days after you surgery. Your surgery day was . Do not get your incision wet until after your elizabeth have been removed. Once the elizabeth have been removed and you are able to shower do not saturate or submerge extremity in water (i.e. Bathtub, hot tub, etc.) until cleared by the provider. Do not wash/scrub directly over/on your incision. Pat your incision dry do not rub your incision with a towel. Do not place anylotions, ointments, creams or powder on your incision or operative leg. When applying your new ABD pad after showering as a reminder do not place any tape over you ABD pad. Your ZACKARY hose are to hold your pad in place. When to call the doctor? Call your doctor right away if you have any of the following: Fever of 100.4 degrees Fahrenheit (38 degrees Celsius) or higher Redness, swelling, or unusual drainage where the tube comes out of the skin Drainage that becomes milky, cloudy or smells bad A sudden increase in the amount of drainage Any new or increased pain Little or no drainage in the drain and fluid is leaking where the tube comes out of your skin Your drain will not stay pressed together after you have emptied it The drain tubing pulls out of your skin Ambulation > Weight bearing status as tolerated with a walker then progress to a cane if stable, unless noted otherwise by the physician or therapist. For Knee Replacements: > Physical therapy 3 times per week for 6 full weeks > Maintain uninterrupted therapy if transitioning from home therapy to out patient therapy > No therabands over your wound/incision > Patients should be doing home exercises on days they are not working with a therapist > Do not rest with a pillow under the knee, work on flexion and extension exercises to improve range of motion Additional Instructions ON Q PAIN RELIEF SYSTEM You have been provided with an educational handout about your On-Q Pain Relief System. Things to remember: 1.) The ball is NOT filled with narcotics. It is filled with numbing medication called Ropivacaine which is simply numbing the nerves around the knee. 2.) Your ON Q pump is set at 2 ml per hour. As your initial nerve block wears off, you can increaseyour ON-Q to 4 to 6ml per hour for pain control. For severe pain you may increase to 8ml per hour or higher for 1 hour, then turn your ON Q back down to 4 to 6 ml per hour. 3.) Pump MUST be in black micaela pack and worn around the neck, shoulder, or abdomen during therapy or ambulation. This is to ensure that pump doesn't fall and dislodge the catheter. 4.) Do NOT squeeze the ball. 5.) Leaking at the catheter site is normal. Do not be alarmed; just use a paper towel or dry wash cloth to absorb the fluid. 6.) Taking a sponge bath is preferred while having the ON-Q ball in place. 7.) Do not drive 8.) Follow the instructions to remove your ON-Q ball on the ON-Q Catheter Removal Sheet . Once catheter is removed, place a band aid over the incision site. Remove the On-Q ball 7 days after discharge, or when it is empty. 9.) Once the catheter is removed it is NOT reusable, throw the ball away in the trash. As a patient you may be concerned about receiving too much local anesthetic medication; however, the pump has been preset specifically for you. It is unlikely that you will receive too much medicine from the pump. However, if you were to get too much medication it might cause ringing in your ears, blurred vision, mouth or tongue numbness, ora metallic taste. You might feel nervous or confused. If you experience any of these symptoms, clamp the tubing and call the number provided below. If you have questions or concerns call the 24 Hour Product Support Hotline at Contact Office ([phone]) if: > Total Knee ROM < 90 degrees upon admission to home health or at any time during recovery period > Any falls or injuries > Redness, drainage or swelling at the incision site that is out of the ordinary from post-operative findings (minor redness, swelling and warmth around the entire knee are common post-operatively) > Patient non-compliance with assistive devices during gait > Fever > 101 degrees. For low grade fevers use Incentive Spirometry @ 10 puffs per hour and tylenol as directed. Anesthesia Precautions & Expectations: After anesthesia, rest for [address], drink alcoholic beverages or make any important decisions during this time. General anesthesia may cause a sore throat, jaw discomfort or muscle aches. These symptoms can last for one or two days. Over the next 48 hours after your surgery if you have questions that you feel are unanswered by your discharge instructions and Dr. Don office is closed, you may call [phone] where you will be connected with an after hours orthopedic nurse that will be able to answer your questions. The morning after your discharge Dr. Don office will contact you to follow up with how your recovery is progressing at home. * Attachments The following attachments cannot be sent through Care Everywhere. * meloxicam (oral/injection) (Prydeinig) * oxycodone (Prydeinig) * acetaminophen (oral) (Prydeinig) * docusate and senna (Prydeinig) * multivitamins (Prydeinig) * omeprazole (Prydeinig) * doxycycline (oral/injection) (Prydeinig) documented in this encounter Additional Source Comments (unrecognized sect ion and content) No Status Records FoundNo Status Records FoundNo Status Records FoundNo Status Records FoundNo Status Records FoundNo Status Records Found INFORMATION SOURCE (unrecogn ized section and content) DATE CREATED AUTHOR 05/16/2018 [facility] DATE CREATED AUTHOR AUTHOR'S ORGANIZ ATION 05/16/2018 [facility] DATE CREATED AUTHOR AUTHOR'S ORGANIZ ATION 02/27/2019 [facility] DATE CREATED AUTHOR AUTHOR'S ORGANIZ ATION 10/30/2022 [facility] DATE CREATED AUTHOR AUTHOR'S ORGANIZ ATION 02/02/2023 [facility] DATE CREATED AUTHOR AUTHOR'S ORGANIZ ATION [facility]/20[facility] Reason for Visit (unrecogniz ed section and content) Status Reason Specialty Diagnoses / Procedures Referred By Contact Referred To Contact Pending Review Diagnoses Left knee pain, unspecified chronicity Procedures XR BONE LENGTH STUDY Barak Hebert MD [address] [place] [address] Reason Comments Knee Pain Pain New Patient Status Reason Specialty Diagnoses / Procedures Referred By Contact Referred To Contact Closed Nuclear Medicine Diagnoses Pain in prosthetic joint, subsequent encounter Procedures NUC 3 PHASE LIMITED BONE SCAN NC BONE IMAGING, 3 PHASE Bhavana Addison, GLORIA-CARINE [address] [place] [address] [facility] Nuclear Medicine [address] [place], [place] [id number] Status Reason Specialty Diagnoses / Procedures Referred By Contact Referred To Contact Closed Nuclear Medicine Diagnoses Pain in prosthetic joint, initial encounter Procedures NUC WBC STUDY NC ABSCESS IMAGING, WHOLE BODY Barak Hebert MD [address] [place], [place] [id number] [facility] Nuclear Medicine [address] [place] [id number] Status Reason Specialty Diagnoses / Procedures Referre d By Contact Referred To Contact Diagnoses Mechanical loosening of internal left knee prosthetic joint, 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, 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] Procedures NC REVISE KNEE JOINT REPLACE,ALL PARTS REVISION ARTHROPLASTY KNEE Barak Hebert MD [address] [place] [address] Reason Comments Post Op Visit Status Reason Specialty Diagnoses / Procedures Referred By Contact Referred To Contact New Request Diagnoses Hx of total knee arthroplasty, left Procedures XR KNEE LEFT 3 VIEWS Kaila Richmond PAKrzysztof [address] [place] [address] Status Reason Specialty Diagnoses / Procedures Referred By Contact Referred To Contact Closed Nuclear Medicine Diagnoses Pain in prosthetic joint, initial encounter Procedures NUC BONE MARROW LIMITED AREA NC BONE MARROW IMAGING, LTD Barak Hebert MD [address] [place] [address] Nuclear Medicine [address] [place], [place] [id number] Status Reason Specialty Diagnoses / Procedures Referred By Contact Referred To Contact Auth Not Needed Nuclear Medicine Diagnoses Pain in prosthetic joint, initial encounter Procedures NUC WBC STUDY NC ABSCESS IMAGING, WHOLE BODY Barak Hebert MD [address] [place] [address] [facility] Nuclear Medicine [address] [place], [place] [phone] Status Reason Specialty Diagnoses / Procedures Referred By Contact Referred To Contact New Request Diagnoses S/P total knee arthroplasty, left Procedures XR BONE LENGTH STUDY Barak Hebert MD [address] [place] [address] Specialty Diagnoses / Procedures Referred By Contac t Referred To Contact Diagnoses Hx of total knee arthroplasty, left Procedures XR KNEE LEFT 3 VIEWS Bhavana Addison, REHAB NURSING TECH-GLASS BULB SILVERER [address] [place], [place] [id number] Referral ID Status Reason Start Date Expiration Date V isits Requested Visits Authorized [id number] New Request 10/22/2021 11/16/2022 1 1 Reason Comments Follow-up Reason Comments Pain Condition Update Specialty Diagnoses / Procedures Referred By Contac t Referred To Contact Diagnoses Bilateral thumb pain Procedures XR THUMB LEFT Gadiel Floyd MD [address] [place] [address] Referral ID Status Reason Start Date Expiration Date V isits Requested Visits Authorized [id number] New Request 02/11/2022 03/08/2023 1 1 Reason Comments Pain Specialty Diagnoses / Procedures Referred By Contac t Referred To Contact Orthopaedic Surgery Diagnoses Bilateral thumb pain Barak Hebert MD [address] [place] [address] Gadiel Floyd MD [address] [place] [address] Referral ID Status Reason Start Date Expiration Date V isits Requested Visits Authorized [id number] New Request 12/17/2021 01/11/2023 1 1 Reason Comments Follow-up Follow Up- Bilat Bas al Joint Arthritis/ Last Injection: 02/17/22- Pain Scale: 2/10 Bilat Referral ID Status Reason Start Date Expiration Date V isits Requested Visits Authorized [id number] New Request 11/22/2023 12/16/2024 1 1 Amaris Samayoa RN - 10/28/2020 2:35 PM ESTWhAmaris tubbs RN - 10/28/2020 12:50 PM EST Nursing Notes (unrecognized section and content) Patient ransferred to PACU via bed with this nurse and DAY CAMP COUNSELOR. Bedside report given to ANOOP Law. Fire risk level of 2 determined during Time Out. ? Application site is dry prior to draping and use of surgical equipment. ? No pooling of prep solution around patient or surgical area. ? All prep materials have been removed from the OR prior to draping and use of surgical devices. Monitored by: Lanre Rolon RN OR room temp: 62.2 OR room humidity: 45.0 documented in this encounter Nursing Notes - Santa Zurita RN - 10/29/2020 3:07 PM ESTNursing Notes - Santa Zurita RN - 10/29/2020 1:25 PM ESTNursing Notes - Santa Zurita RN - 10/29/2020 12:36 PM EST Miscellaneous Notes (unrecog nized section and content) Discharge instructions reviewed with patient and . Understanding verbalized. Nurse encouraged pt to make it to follow up appointment on Nov [address] Hebert's office on Tuesday. On Q ball paperwork and DC instructions given. Physical therapy at bedside to do rehab. Assessment remains unchanged from this morning. Pt in chair and lunch given. Denies pain. Anticipating going home. OT in room to help with bathing and dressing. Ambulated to bathroom with assistance. Able to urinate without difficulty. I certify that this patient requires inpatient services at this time. Patient is having a Medicare Inpatient Only procedure. Plans for post hospitalization care will be determined in the discharge planning process with social security specialist and the multidisciplinary team. Return to bay from PT. C/o pain 4 out of 10. Pain pill offered but Tylenol due. PT to take tylenol and save oxicodone for after lunch. Follow up phone call to [facility], who state that they can accept to start services tomorrow. Follow up call received from Suzy at [facility]. Referral for [facility] therapistSanta to be made through [facility]. Instructed to request Santa for PT on referral. Referral sent at this time. To PT room Spoke with Suzy at [facility] regarding referral. Referring patient information, will call back to update if patient can be accepted. I certify that this patient requires inpatient services at this time. I anticipate the expected length of stay will include at least two midnights. Inpatient services are due to the following medical concerns need for PT,OT, and medical management following hospital stay for left knee revision arthroplasty. Plans for post hospitalization care will be discharge to home with home health. Eating Breakfast. Dr Rothman and Dr Hebert at bedside. Pt awake and sitting up in bed. No c/o pain. Schedule of the day discussed. Pt states his is coming in the morning and will take him home. Hemovac evacuated. Breakfast ordered. DATE OF PROCEDURE: 10/28/2020 ATTENDING PHYSICIAN: Barak Hebert M.D. SKI PATROL OFFICER: Bhavana Addison CNP. PREOPERATIVE DIAGNOSIS: Failed left total knee arthroplasty, aseptic loosening. POSTOPERATIVE DIAGNOSIS: Failed left total knee arthroplasty, aseptic loosening. PROCEDURES PERFORMED: 1. Revision both components left total knee arthroplasty. 2. Periarticular injection, left knee. 3. Placement of continuous catheter, adductor canal left knee. ANESTHESIA: General. ANESTHESIOLOGIST: Per record. ESTIMATED BLOOD LOSS: 25 mL. COMPLICATIONS: None. INTRAVENOUS FLUIDS: Adequate. SPECIMENS: Include bone. INSTRUMENTATION USED: DePuy Blipifyune size 7 left CRS femoral component with an 8 mm lateral posterior, 4 mm medial posterior and a 4 mm distal augment with a 16 x 110 straight stem, a size 6 rotating platform tibial component, size 29 mm partially-coated sleeve, size 12 x 60 stem and a size 8 rotating platform CRS polyethylene. INDICATIONS: López is a 70-year-old male. He is status post primary total knee arthroplasty at an outside institution. He has had persistent pain, warmth, swelling and loss of motion. He has been diagnosed with failure of the knee. Preoperative workup was negative for infection, although he has had multiple dry taps, a white blood cell scan that was negative. We talked about the options for revision. We also talked about the potential for invocation of a late positive infection through intraoperative cultures, and the potential need in the future for additional operations. He had no further questions and agreed with the recommendations and the treatment plan to move forward. He was, therefore, scheduled for the procedure, for which he appears today. Upon arrival to the preoperative unit, the risks, benefits and alternatives were thoroughly explained, informed consent was verified, and the site was marked. After evaluation by Anesthesia and administration of preoperative antibiotics, patient was then brought to the operating room. DESCRIPTION OF THE PROCEDURE: Upon arrival to the operating room, patient was placed supine on the operating room table, and general anesthetic was induced. The left lower extremity was prepared for surgery with a tourniquet, two leg holders and a bump. It was elevated, prepped and draped in a standard sterile fashion. A proper timeout was performed. I began by utilizing the previous incision, and I came down over the extensor mechanism. I extended this superiorly and inferiorly as necessary. There was extensive scarring over the extensor mechanism. A tissue plane was created here and performed a medial parapatellar arthrotomy. The extensor mechanism itself was probably an inch to an inch and a half thick in certain areas with an extensive amount of scar. Everything was adhered down to the underlying bone and implant. A complete synovectomy was performed on the mediolateral side, anteriorly as well. I established the gutters and removed the previous polyethylene. Prior to this, range of motion was extremely limited; it was around 50-80. I then continued with slow and steady release around the patella to gradually flex the knee up to 90 and gain access to the distal femur. At this point then, I used a combination of osteotomes and was easily able to remove the femoral component. I continued with my synovectomy posteriorly and then subluxed the tibia forward. There appeared to be aseptic loosening of the tibial component with fluid motion at the cement implant interface. I then used a combination of osteotomes and the implant extraction equipment to remove this. At this point then, the patella was inspected. It was found to be stable, well fixed, no evidence of loosening, so I proceeded then with the revision arthroplasty. I began by utilizing the reamers to ream up to a size 12 in the tibia. I then used the starting drill, and then broached to a 29 mm broach. There was a small defect in the anterior tibia I was able to bypass with the sleeve. A fresh cut was made on top of the sleeve that visibly appeared to be in line with the mechanical axis of the tibia. I then removed the broach. The trial component was placed. The punch was used. I sized it to a size 6 and it was rotated around the one-third of the medial tibial tubercle without any extensive impingement or overhang. I then began by reaming the femur. I reamed up to a size 16. There was no significant bone loss other than some scalloping on the posterolateral condyle and less so on the posteromedial side. I proceeded through the workflow and ultimately sized the femoral component to around a size 7. I placed the 4-in-[address] All the cuts were performed. A box cut was cut. The trial component was placed. The knee was reduced and now demonstrated range of motion 0-120, good balance and stability throughout the arc of motion with a size 8 polyethylene. The patella was tracking anatomically. At this point then, all trial components were removed. The knee was inspected for loose bodies and thoroughly irrigated, clean and dry. The final components were assembled on the back table according to the direct mail marketer s technique. They were then cemented into place, held with an axial load until complete polymerization had occurred. During this time, the periarticular injection was administered, as well as the On-Q. I placed the On-Q into the knee. I lifted up the VMO, bluntly dissected up to the inferior border of the adductor canal. I passed the catheter; it flushed appropriately. At this point then, I reinspected the knee. I was pleased with the performance of the 8. This was place after inspecting for additional cement posteriorly. The knee was then reduced. The polyethylene demonstrated no impingement, no instability. The tourniquet was let down, hemostasis was obtained, and I turned my attention then towards wound closure. The wound was irrigated, soaked with Betadine, irrigated further. A gram of vancomycin was placed. I then closed the arthrotomy with #1 Vicryl, over sewn with a #2 Quill, multiple layers of 0-Vicryl and 0-Quill and elizabeth for the skin. The extremity was cleansed, a sterile dressing applied. The patient was woken up from the anesthetic, extubated and taken to the postoperative care unit in stable condition. POSTOPERATIVE PLAN OF CARE: 1. Weight bearing as tolerated, therapy to start today. 2. IV antibiotics 24 hours postop. 3. DVT prophylaxis, both mechanical and chemical. 4. Follow up in the office in 2-3 weeks, staple removal in 10-14 days. ATTENDING/ASSISTING PARTICIPATION: This operation could not have been safely performed (without compromising the technical results or length of the procedure) without the assistance of a skilled neurosurgical nurse practitioner. A neurosurgical nurse practitioner was medically necessary for positioning, retraction and instrumentation. Lab into draw AM labs. Pt awake, sitting up in bed. Pt denies pain or discomfort. IVF stopped, and IV saline locked. Assessment unchanged from earlier. Resp unlabored on room air. PO 95% L knee dressing CDI, no drng noted. Hemovac intact, compressed. Ice pack to L knee. Pt denies pain or discomfort at this time. SR up X2. Call light in reach. Ambulated to BR and back to bed with walker and 1 assist. Gait steady. Pt tolerated well. Resting quietly with eyes closed. Resp unlabored on room air. Will cont to monitor. Assessment unchanged from earlier. Resp unlabored on room air. Denies pain or discomfort. L knee drsg CDI, no drng noted. Hemovac intact, compressed. Qball intact, running a 2. IVF conts without difficulty. SR up X2. Call light in reach. Resting quietly. Pt arouses easily. Denies pain or discomfort. Will cont to monitor. Medicated with oxycodone 10 mg PO for c/o L knee pain, rated 5/10. Much emotional support provided. Pt up ambulating in hallway with walker, gait belt and 1 assist. Gait steady. Pt tolerated well. Returned to room and positioned for comfort in bed. Call light in reach. Pt sitting up in reclining chair at this time. Resp unlabored on room air. L knee ABD dry, no drng noted. ZACKARY hose in place. Hemovac intact, compressed. Q ball intact, at 2. Ice pack to L knee. Denies pain or discomfort. Call light in reach. PT present in the room. Patient was assessed in [facility] on 10/02/20. Met with patient and spouse for follow up regarding discharge plan. Patient has a walker, which he has brought from home and is in the room. He plans to return home with his spouse and HHC through [facility], which he has used in the past. Per nursing, his incision is closed with elizabeth, HHC to remove, will request 3 week follow up appointment. Patient denies any other needs at this time. Phone call to [facility] to discuss referral, message left. Follow up appointment requested. Social work and PT notified that pt is back in [facility]. POST OPERATIVE/PROCEDURE NOTE López Cortés ([id number]) SURGEON Surgeon(s) and Role: * Barak Hebert MD - Primary SKI PATROL OFFICER Bhavana Addison APRN-GLASS BULB SILVERER ANESTHESIOLOGIST DAY CAMP COUNSELOR: Yusef Escobedo CRNA SURGICAL STAFF Intelligence Consultant: Kerry Richter RN Nurse Practitioner: MARK Richardson Scrub Person: Andrew Moffett, ANOOP; Alyx Miller; Martha Rolon RN Viticulturist Bellman Driver: Escobar Rodriguez Business Analytics Analyst: Efrem Bonner LPN PROCEDURE PERFORMED Procedure(s) (LRB): REVISION ARTHROPLASTY KNEE left (Left) Left knee periarticular injection Left adductor canal catheter placment PRIMARY CLOSURE Yes ANESTHESIA (type of) * No anesthesia type entered * ESTIMATED BLOOD LOSS 50 ml DRAINS Med hv BLOOD PRODUCTS none FLUIDS Intake/Output Summary (Last 24 hours) at 10/28/2020 1439 Last data filed at 10/28/2020 1412 Gross per 24 hour Intake 2000 ml Output 475 ml Net 1525 ml PRE OPERATIVE DIAGNOSIS Mechanical loosening of internal left knee prosthetic joint, 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] POST OPERATIVE DIAGNOSIS Mechanical loosening of internal left knee prosthetic joint, 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] FINDINGS see op note CONDITION OF PATIENT stable COMPLICATIONS None GRAFTS AND/OR IMPLANTS See OR Nursing Documentation SPECIMENS Microbiology specimen sent ID Type Source Tests Collected by Time Destination 1 : Left Knee Incisional Fluid (1-2) Tissue TISSUE FUNGUS CULTURE, ANAEROBE CULTURE, BACTERIAL CULTURE AND DIRECT SMEAR, LESION, TISSUE, DEVICE Barak Hebert MD 10/28/2020 1235 2 : Left Knee Medial Synovium (1-3) Tissue TISSUE FUNGUS CULTURE, ACID FAST CULTURE, TISSUE, ANAEROBE CULTURE, BACTERIAL CULTURE AND DIRECT SMEAR, LESION, TISSUE, DEVICE Barak Hebert MD 10/28/2020 1242 3 : Left Knee Lateral Synovium (1-3) Tissue TISSUE FUNGUS CULTURE, ACID FAST CULTURE, TISSUE, ANAEROBE CULTURE, BACTERIAL CULTURE AND DIRECT SMEAR, LESION, TISSUE, DEVICE Barak Hebert MD 10/28/2020 1247 4 : Left Knee Femoral Tissue (1-3) Tissue TISSUE FUNGUS CULTURE, ACID FAST CULTURE, TISSUE, ANAEROBE CULTURE, BACTERIAL CULTURE AND DIRECT SMEAR, LESION, TISSUE, DEVICE Barak Hebert MD 10/28/2020 1256 5 : Left Knee Posterior Condyle (1-3) Tissue TISSUE FUNGUS CULTURE, ACID FAST CULTURE, TISSUE, ANAEROBE CULTURE, BACTERIAL CULTURE AND DIRECT SMEAR, LESION, TISSUE, DEVICE Barak Hebert MD 10/28/2020 1301 MARK Richardson October 28, 2020 2:39 PM CM met with patient this date to discuss post-surgical discharge plans. Patient states that he plans to return home with his spouse and [facility] after discharge for a left knee revision. He states that lives in [place] and would like to utilize [facility] in that area. He states that he has a wheeled walker and will bring it with him on the day of surgery. CM to continue to follow and assist with discharge plans. 10/02/20927 Information Source Information Source patient Contact Information Administrative Processor Name Sun Lopez RN Case Manager's Living Environment Lives With spouse Living Arrangements house (One story home) Provides Primary Care For no one Primary Care Provided By self Support System Immediate family Able to Return to Prior Arrangements yes Employment/Financial Employed? Retired Cognitive/Perceptual/Developmental Current Mental Status/Cognitive Functioning no deficits noted Recent Changes in Mental Status/Cognitive Functioning no changes Developmental Stage Stage 8 (66 years-/Late Adulthood) Integrity vs. Despair Emotional/Psychological Affect no deficits noted Mood congruent to situation Verbal Skills no deficits noted Current Interpersonal Conduct/Behavior appropriate to situation Mental Health Conditions/Symptoms none;denies Thought Process Alterations no deficits noted Referral Information Referral Source physician documented in this encounter Care Teams (unrecognized sec tion and content) Asp Net Developer Relationship Specialty Start Date End Date Tess Fuentes MD [address] [id number] PCP - General Family Medicine 09/11/20 Asp Net Developer Relationship Specialty Start Date End Date Tess Fuentes MD [address] [place] [address] PCP - General Family Medicine 09/11/20 [employer] Developer Relationship Specialty Start Date End Date Tess Fuentes MD [address] [place] [address] PCP - General Family Medicine 09/11/20 [employer] Developer Relationship Specialty Start Date End Date Tess Fuentes MD [address] [place] [address] [place] [address] PCP - General Family Medicine 09/11/20 [employer] Developer Relationship Specialty Start Date End Date Tess Fuentes MD [address] [place] [address] [place] [address] PCP - General Family Medicine 09/11/20 Asp Net Developer Relationship Specialty Start Date End Date Tess Fuentes MD [address] [place] [address] [place] [address] PCP - General Family Medicine 09/11/20 [employer] Developer Relationship Specialty Start Date End Date Tess Fuentes MD [address] [facility] [place] [address] [place] [address] PCP - General Family Medicine 09/11/20 Asp Net Developer Relationship Specialty Start Date End Date Tess Fuentes MD [address] [place] [address] [place] [address] PCP - General Family Medicine 09/11/20 Asp Net Developer Relationship Specialty Start Date End Date Tess Fuentes MD [address] [place] [address] [place] [address] PCP - General Family Medicine 09/11/20 Asp [employer] Developer Relationship Specialty Start Date End Date Tess Fuentes MD [address] [facility] [place] [address] [place] [address] PCP - General Family Medicine 09/11/20 FOR RECORDS PERTAINING TO PATIENTS WHO ARE OR HAVE BEEN ENROLLED IN A CHEMICAL DEPENDENCY/SUBSTANCEABUSE PROGRAM, SOME INFORMATION MAY BE OMITTED. This clinical summary was aggregated from multiple sources. Caution should be exercised in using it in the provision of clinical care. This summary normalizes information from multiple sources, and as a consequence, information in this document may materially change the coding, format and clinical context of patient data. In addition, data may be omitted in some cases. CLINICAL DECISIONS SHOULD BE BASED ON THE PRIMARY CLINICAL RECORDS. [facility] [employer] [facility]. provides no warranty or guarantee of the accuracy or completeness of information in this document.
[2024-04-11 07:41] LABS: Basophils Absolute Auto 0.1 10^3/uL (0.0-0.1); Basophils Percent Auto 0.8 % (0.2-2.0); Eosinophils Absolute Auto 0.3 10^3/uL (0.0-0.7); Eosinophils Percent Auto 3.5 % (0.9-7.0); Hematocrit 44.3 % (42.0-54.0); Hemoglobin 14.4 g/dL (14.0-18.0); Immature Granulocytes Abs Auto 0.02 10^3/uL (0.00-0.03); Immature Granulocytes Pct Auto 0.3 % (0.0-0.5); Lymphocytes Absolute Auto 1.8 10^3/uL (1.2-3.8); Lymphocytes Percent Auto 24.9 % (20.5-60.0); Mean Corpuscular HGB Conc 32.5 g/dL (29.9-35.2); Mean Corpuscular Hemoglobin 30.6 pg (25.9-34.0); Mean Corpuscular Volume 94.3 fL (80.0-94.0); Mean Platelet Volume 10.6 fL (9.5-13.5); Monocytes Absolute Auto 0.9 10^3/uL (0.3-0.8); Monocytes Percent Auto 11.6 % (1.7-12.0); Neutrophils Absolute Auto 4.3 10^3/uL (1.4-6.5); Neutrophils Percent Auto 58.9 % (43.0-75.0); Platelet Count 185 10^3/uL (150-450); Red Cell Distribution Width 14.3 % (11.0-15.0); White Blood Count 7.3 10^3/uL (4.0-11.0)
[2024-04-11 08:38] LABS: Estimated Average Glucose 120 mg/dL; Glycohemoglobin A1C 5.8 % (4.5-6.2)
[2024-04-11 09:35] LABS: Prostate Specific Antigen Scrn 1.51 ng/mL (<=4.00)
[2024-04-11 09:55] LABS: Anion Gap 12.8; Carbon Dioxide 27.4 mmol/L (21.0-32.0); Chloride 106 mmol/L (98-107); Glucose 89 mg/dL (74-106); Potassium 4.2 mmol/L (3.5-5.1); Sodium 142 mmol/L (136-145)
[2024-04-11 09:56] LABS: Alanine Aminotransferase 27 U/L (16-63); Alkaline Phosphatase 117 U/L (46-116); Aspartate Amino Transferase 24 U/L (15-37); BUN Creatinine Ratio 15.4; Bilirubin Total 1.9 mg/dL (0.2-1.0); Estimated GFR (African America >60 (>=60); Estimated GFR (Non-African Ame 51 (>=60); Total Protein 6.7 g/dL (6.4-8.2)
[2024-04-11 09:57] LABS: Albumin Level 3.4 g/dL (3.4-5.0); Chol HDL Ratio 2.7; Cholesterol 124 mg/dL (<=200); Free T3 2.65 pg/mL (2.18-3.98); Globulin 3.3 g/dL; HDL Cholesterol 46 mg/dL (40-60); Thyroid Stimulating Hormone 0.651 uIU/mL (0.358-3.740); Triglycerides 48 mg/dL (<=150); VLDL CHOLESTEROL 9.6 mg/dL
== END 2024-04-11 07:08 | disposition home or self-care (01) ==
LOC: LAB 07:08
PROVIDERS: PCP Family Medicine; Visit Provider Family Medicine
DX: E78.00 Pure hypercholesterolemia, unspecified (principal); N18.2 Chronic kidney disease, stage 2 (mild); C44.91 Basal cell carcinoma of skin, unspecified; I12.9 Hypertensive chronic kidney disease with stage 1 through stage 4 chronic kidney disease, or unspecified chronic kidney disease
CPT/HCPCS: 36415; 80053; 80061; 83036; 84436; 84443; 84481; 85025; G0103

== ENCOUNTER 2024-04-13 10:57 | Outpatient (REF) | payer MEDICARE, SELFPAY ==
[2024-04-13 14:30] LABS: Internal Control Within Normal Limits; Occult Blood Negative
== END 2024-04-13 10:58 | disposition home or self-care (01) ==
LOC: LAB 10:57
PROVIDERS: PCP Family Medicine; Visit Provider Family Medicine
DX: E78.00 Pure hypercholesterolemia, unspecified (principal); I12.9 Hypertensive chronic kidney disease with stage 1 through stage 4 chronic kidney disease, or unspecified chronic kidney disease; N18.2 Chronic kidney disease, stage 2 (mild); C44.91 Basal cell carcinoma of skin, unspecified
CPT/HCPCS: G0328

== ENCOUNTER 2024-08-29 07:30 | Outpatient (OUT) | payer MEDICARE, SELFPAY ==
--- OUTSIDE RECORDS SUMMARY | 2024-08-29 07:33 | XMS_ITS | CCD ---
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 #### [facility] [address] [place] [address] Dr. Braulio Fritz URIC ACID SERUMon 01-27-2023 Urate [Mass/Vol] 7.3 mg/dL Critically high 3.5-7.2 [facility] Comment on above: Performed By: #### I NSULIN #### [facility] [address] [place] [address] Dr. Braulio Fritz VITAMIN D 25 OHon 01-27-2023 VIT D 25-OH 44.5 ng/mL Normal [facility] Comment on above: Performed By: #### P ANIYAC, VITAD #### [facility] [address] [place] [address] Dr. Braulio Fritz VIT D RANGES SEE BELOW Normal [facility] Comment on above: Result Comment: <20 ng/mL Vit D deficient 20 - <30 ng/mL Vit D insufficient 30 - 100 ng/mL Vit D sufficient >100 ng/mL Potential Toxicity Performed By: #### P MARGARITA, VITAD #### [facility] [address] [place] [address] Dr. Braulio Fritz T4 [employer]on 04-16-2022 T4 [Mass/Vol] 6.6 ug/dL Normal 4.5-12.0 [facility] Comment on above: Performed By: #### I NSULIN #### [facility] [address] [place] [address] Dr. Braulio Fritz NM STRESS/REST MULTIon 04-15 NM STRESS/REST MULTI Patient: LÓPEZ CORTÉS Exam Date: 04/15/2022 : 1950 Gender:M Ordering : DR TESS FUENTES . Admission #: [id number] Family : Order #: [id number] CLICK HERE TO VIEW EXAM RADIOLOGY REPORT [...] Stahl M.D. on 04/16/2022 at 13:16 Normal [facility] ECHOCARDIO M/2D COMPLETEon 0 04-13-2022 ECHOCARDIO M/2D COMPLETE Patient: LÓPEZ CROTÉS Exam Date: 04/13/2022 : 1950 Gender:M Ordering : DR TESS FUENTES . Admission #: [id number] Family : Order #: [id number] CLICK HERE TO VIEW EXAM ECHOCARDIOGRAM REPORT [...] Area(A4C): 20.60 cm2 Left Atrium Systolic Volume(A2C): 37870 mm3 Left Atrium Systolic Volume(A4C): 54577 mm3 Mitral Valve MV E to A [...] 04/13/2022 at 11:36 Normal [facility] OCC BLD IMMUNO SCREENon 03-22 OCCULT BLOOD Negative Normal NEGATIVE [facility] Comment on above: Performed By: #### O BSCRN #### [facility] [address] [place] [address] Dr. Braulio Fritz INSULINon 04-12-2022 Insulin 18.7 uIU/mL Normal 2.6-24.9 [facility] Comment on above: Performed By: #### I NSULIN #### [facility] [address] [place] [address] Dr. Braulio Fritz BNPon 04-10-2022 Natriuretic peptide B (Bld) [Mass/Vol] 672.0 pg/mL Normal <=900.0 [facility] Comment on above: Performed By: #### A 1C #### [facility] [address] [place] [address] Dr. Braulio Fritz CBC AUTO DIFFon 04-10-2022 BASO # 0.1 103/ul Normal 0.0-0.1 [facility] Comment on above: Performed By: #### I NSULIN #### [facility] [address] [place] [address] Dr. Braulio Fritz Basophils/100 WBC (Bld) 0.8 % Normal 0.2-2.0 [facility] Comment on above: Performed By: #### I NSULIN #### [facility] [address] [place] [address] Dr. Braulio Fritz EO # 0.3 103/ul Normal 0.0-0.7 [facility] Comment on above: Performed By: #### I NSULIN #### [facility] [address] [place] [address] Dr. Braulio Fritz Eosinophils/100 WBC (Bld) 4.0 % Normal 0.9-7.0 [facility] Comment on above: Performed By: #### I NSULIN #### [facility] [address] [place] [address] Dr. Braulio Fritz Erythrocyte distribution width (RBC) [Ratio] 13.7 % Normal 11.0-15.0 [facility] Comment on above: Performed By: #### I NSULIN #### [facility] [address] [place] [address] Dr. Braluio Fritz Hematocrit (Bld) [Volume fraction] 47.7 % Normal 42.0-54.0 [facility] Comment on above: Performed By: #### I NSULIN #### [facility] [address] [place] [address] Dr. Braulio Fritz Hemoglobin (Bld) [Mass/Vol] 15.9 g/dL Normal 14.0-18.0 [facility] Comment on above: Performed By: #### I NSULIN #### [facility] [address] [place] [address] Dr. Braulio Fritz IG # 0.02 10e3/ul Normal 0.00-0.03 [facility] Comment on above: Performed By: #### I NSULIN #### [facility] [address] [place] [address] Dr. Braulio Fritz IG % 0.3 % Normal 0.0-0.5 [facility] Comment on above: Performed By: #### I NSULIN #### [facility] [address] [place] [address] Dr. Braulio Fritz LYMPH # 1.6 103/ul Normal 1.2-3.8 [facility] Comment on above: Performed By: #### I NSULIN #### [facility] [address] [place] [address] Dr. Braulio Fritz Lymphocytes/100 WBC (Bld) 24.6 % Normal 20.5-60.0 [facility] Comment on above: Performed By: #### I NSULIN #### [facility] [address] [place] [address] Dr. Braulio Fritz MANUAL DIFF REQ NO Normal [facility] Comment on above: Performed By: #### I NSULIN #### [facility] [address] [place] [address] Dr. Braulio Fritz MCH (RBC) [Entitic mass] 31.6 pg Normal 25.9-34.0 [facility] Comment on above: Performed By: #### I NSULIN #### [facility] [address] [place] [address] Dr. Braulio Fritz MCHC (RBC) [Mass/Vol] 33.3 g/dL Normal 29.9-35.2 [facility] Comment on above: Performed By: #### I NSULIN #### [facility] [address] [place] [address] Dr. Braulio Fritz MCV (RBC) [Entitic vol] 94.8 fL Critically high 80.0-94.0 [facility] Comment on above: Performed By: #### I NSULIN #### [facility] [address] [place] [address] Dr. Braulio Fritz MONO # 0.7 103/ul Normal 0.3-0.8 [facility] Comment on above: Performed By: #### I NSULIN #### [facility] [address] [place] [address] Dr. Braulio Fritz Monocytes/100 WBC (Bld) 11.2 % Normal 1.7-12.0 [facility] Comment on above: Performed By: #### I NSULIN #### [facility] [address] [place] [address] Dr. Braulio Fritz NEUT # 3.8 103/ul Normal 1.4-6.5 [facility] Comment on above: Performed By: #### I NSULIN #### [facility] [address] [address] [address] Braulio Fritz Neutrophils/100 WBC (Bld) 59.1 % Normal 43.0-75.0 [facility] Comment on above: Performed By: #### I NSULIN #### [facility] [address] [place] [address] Dr. Braulio Fritz Platelet mean volume (Bld) [Entitic vol] 10.0 fL Normal 9.5-13.5 [facility] Comment on above: Performed By: #### I NSULIN #### [facility] [address] [place] [address] Dr. Braulio Fritz PLT 210 103/ul Normal 150-450 [facility] Comment on above: Performed By: #### I NSULIN #### [facility] [address] [place] [address] Dr. Braulio Fritz RBC 5.03 106/ul Normal 4.70-6.10 [facility] Comment on above: Performed By: #### I NSULIN #### [facility] [address] [place] [address] Dr. Braulio Fritz WBC 6.5 103/ul Normal 4.0-11.0 [facility] Comment on above: Performed By: #### I NSULIN #### [facility] [address] [place] [address] Dr. Braulio Fritz FREE THYROXINE INDEX T7on FTI 2.64 Normal 1.30-4.50 [facility] Comment on above: Performed By: #### A 1C #### [facility] [address] [place] [address] Dr. Braulio Fritz T3U 40.0 % Normal 33.0-40.0 [facility] Comment on above: Performed By: #### A 1C #### [facility] [address] [place] [address] Dr. Braulio Fritz T4 [Mass/Vol] 6.60 ug/dL Normal 4.50-12.10 [facility] Comment on above: Performed By: #### A 1C #### [facility] [address] [address] [address] Braulio Fritz GLYCOHEMOGLOBIN A1Con 2021 ADA RECOMMENDATION SEE BELOW Normal [facility] Comment on above: Result Comment: ADA RECOMMENDED LIMIT 4.0 - 6.0 ADA THERAPEUTIC TARGET < 7.0 ACTION SUGGESTED > 7.0 Performed By: #### A 1C #### [facility] [address] [address] [address] Braulio Fritz Glucose [Mass/Vol] 114 mg/dL Normal [facility] Comment on above: Performed By: #### A 1C #### [facility] [address] [place] [address] Dr. Braulio Fritz HbA1c (Bld) [Mass fraction] 5.6 % Normal 4.5-6.2 [facility] Comment on above: Performed By: #### A 1C #### [facility] [address] [place] [address] Dr. Braulio Fritz IRONon 04-10-2022 Iron [Mass/Vol] 105.0 ug/dL Normal 65.0-175.0 [facility] Comment on above: Performed By: #### B 12FOL, VITAD, PSASC, IRON #### [facility] [address] [place] [address] Dr. Braulio Fritz LIPID PROFILEon 04-10-2022 CHOL-HDL RATIO NORM SEE BELOW Normal [facility] Comment on above: Result Comment: 3.3 - 4.4 LOW RISK 4.4 - 7.1 AVERAGE RISK 7.1 - 11.0 MODERATE RISK >11.0 HIGH RISK Performed By: #### A 1C #### [facility] [address] [place] [address] Dr. Braulio Fritz Cholesterol [Mass/Vol] 132 mg/dL Normal <=200 [facility] Comment on above: Performed By: #### A 1C #### [facility] [address] [place] [address] Dr. Braulio Fritz Cholesterol in HDL [Mass/Vol] 38 mg/dL Critically low 40-60 [facility] Comment on above: Performed By: #### A 1C #### [facility] [address] [address] [address] Braulio Fritz Cholesterol in LDL [Mass/Vol] 71.2 mg/dL Normal [facility] Comment on above: Performed By: #### A 1C #### [facility] [address] [address] [address] Braulio Fritz Cholesterol.total/C holesterol in HDL [Mass ratio] 3.5 {ratio} Normal [facility] Comment on above: Performed By: #### A 1C #### [facility] [address] [address] [address] Braulio Fritz HDL NORMAL > or = 60 mg/dl - LO W CARDIOVASCULAR RISK <40 mg/dl - HIGH CARDIOVASCULAR RISK Normal [facility] Comment on above: Performed By: #### A 1C #### [facility] [address] [place] [address] Dr. Braulio Fritz LDL CALC NORMAL SEE BELOW Normal [facility] Comment on above: Result Comment: <100 mg/dl OPTIMAL 100 - 129 mg/dl NEAR OR ABOVE OPTIMAL 130 - 159 mg/dl BORDERLINE HIGH 160 - 189 mg/dl HIGH >190 mg/dl VERY HIGH Performed By: #### A 1C #### [facility] [address] [place] [address] Dr. Braulio Fritz Triglyceride [Mass/Vol] 114 mg/dL Normal <=150 [facility] Comment on above: Performed By: #### A 1C #### [facility] [address] [address] [address] Braulio Fritz VLDL CALC 22.8 mg/dL Normal [facility] Comment on above: Performed By: #### A 1C #### [facility] [address] [place] [address] Dr. Braulio Fritz PROF 14(COMP METB)on 022 Albumin [Mass/Vol] 3.5 g/dL Normal 3.4-5.0 [facility] Comment on above: Performed By: #### A 1C #### [facility] [address] [place] [address] Dr. Braulio Fritz Albumin/Globulin [Mass ratio] 1.0 {ratio} Normal [facility] Comment on above: Performed By: #### A 1C #### [facility] [address] [place] [address] Dr. Braulio Fritz ALP [Catalytic activity/Vol] 115 U/L Normal 46-116 [facility] Comment on above: Performed By: #### A 1C #### [facility] [address] [place] [address] Dr. Braulio Fritz ALT [Catalytic activity/Vol] 29 U/L Normal 16-63 [facility] Comment on above: Performed By: #### A 1C #### [facility] [address] [place] [address] Dr. Braulio Fritz Anion gap [Moles/Vol] 10.9 mmol/L Normal [facility] Comment on above: Performed By: #### A 1C #### [facility] [address] [place] [address] Dr. Braulio Fritz AST [Catalytic activity/Vol] 23 U/L Normal 15-37 [facility] Comment on above: Performed By: #### A 1C #### [facility] [address] [place] [address] Dr. Braulio Fritz Bilirubin [Mass/Vol] 1.3 mg/dL Critically high 0.2-1.0 [facility] Comment on above: Performed By: #### A 1C #### [facility] [address] [place] [address] Dr. Braulio Fritz Calcium [Mass/Vol] 8.8 mg/dL Normal 8.5-10.1 [facility] Comment on above: Performed By: #### A 1C #### [facility] [address] [place] [address] Dr. Braulio Fritz Chloride [Moles/Vol] 106 mmol/L Normal 98-107 [facility] Comment on above: Performed By: #### A 1C #### [facility] [address] [place] [address] Dr. Braulio Fritz CO2 [Moles/Vol] 27.5 mmol/L Normal 21.0-32.0 [facility] Comment on above: Performed By: #### A 1C #### [facility] [address] [address] [address] Braulio Fritz Creatinine [Mass/Vol] 1.68 mg/dL Critically high 0.70-1.30 [facility] Comment on above: Performed By: #### A 1C #### [facility] [address] [address] [address] Braulio Fritz EGFR-AF VENEZUELAN 49 mL/min/1.73m2 Critically low >=60 [facility] Comment on above: Performed By: #### A 1C #### [facility] [address] [address] [address] Braulio Fritz EGFR-NON AF VENEZUELAN 40 mL/min/1.73m2 Critically low >=60 [facility] Comment on above: Performed By: #### A 1C #### [facility] [address] [address] [address] Braulio Fritz Globulin (S) [Mass/Vol] 3.6 g/dL Normal [facility] Comment on above: Performed By: #### A 1C #### [facility] [address] [address] [address] Braulio Fritz Glucose [Mass/Vol] 109 mg/dL Critically high 74-106 [facility] Comment on above: Performed By: #### A 1C #### [facility] [address] [address] [address] Braulio Fritz Potassium [Moles/Vol] 4.4 mmol/L Normal 3.5-5.1 [facility] Comment on above: Performed By: #### A 1C #### [facility] [address] [address] [address] Braulio Fritz Protein [Mass/Vol] 7.1 g/dL Normal 6.4-8.2 [facility] Comment on above: Performed By: #### A 1C #### [facility] [address] [address] [address] Braulio Fritz Sodium [Moles/Vol] 140 mmol/L Normal 136-145 [facility] Comment on above: Performed By: #### A 1C #### [facility] [address] [place] [address] Dr. Braulio Fritz Urea nitrogen [Mass/Vol] 24.0 mg/dL Critically high 7.0-18.0 [facility] Comment on above: Performed By: #### A 1C #### [facility] [address] [place] [address] Dr. Braulio Fritz Urea nitrogen/Creatinine [Mass ratio] 14.3 mg/mg Normal [facility] Comment on above: Performed By: #### A 1C #### [facility] [address] [place] [address] Dr. Braulio Fritz TSHon 04-10-2022 TSH 0.740 uIU/mL Normal 0.358-3.740 [facility] Comment on above: Performed By: #### A 1C #### [facility] [address] [place] [address] Dr. Braulio Fritz TSH RANGE SEE BELOW Normal [facility] Comment on above: Result Comment: <0.3 4 UIU/ml HYPERTHYROID 0.34-5.60 UIU/ml EUTHYROID >5.60 UIU/ml HYPOTHYROID Performed By: #### A 1C #### [facility] [address] [place] [address] Dr. Braulio Fritz VIT B12 AND FOLATEon 022 Cobalamin (Vitamin B12) [Mass/Vol] 547.0 pg/mL Normal 193.0-986.0 [facility] Comment on above: Performed By: #### B 12FOL, VITAD, PSASC, IRON #### [facility] [address] [place] [address] Dr. Braulio Fritz FOLATE 17.80 ng/mL Normal 8.60-58.90 [facility] Comment on above: Performed By: #### B 12FOL, VITAD, PSASC, IRON #### [facility] [address] [place] [address] Dr. Braulio Fritz VITAMIN D 25 OHon 04-10-2022 VIT D 25-OH 50.4 ng/mL Normal [facility] Comment on above: Performed By: #### B 12FOL, VITAD, PSASC, IRON #### [facility] [address] [place], [place] [address] Dr. Braulio Fritz VIT D RANGES SEE BELOW Normal [facility] Comment on above: Result Comment: <20 ng/mL Vit D deficient 20 - <30 ng/mL Vit D insufficient 30 - 100 ng/mL Vit D sufficient >100 ng/mL Potential Toxicity Performed By: #### B 12FOL, VITAD, PSASC, IRON #### [facility] [address] [place], [place] [address] Dr. Braulio Fritz XR CHEST 2 Von [...] by: RJ LEON Date: 2022-04-09 12:41 Normal [facility] SMALL JOINT/BURSA INJECTION AND/OR ASPIRATION: L thumb CMCon 02-17-2022 Irene Parker 02/19/20 5:31 PM SMALL JOINT/BURSA INJECTION AND/OR ASPIRATION: [...] fashion. The patient was prepped with alcohol. [facility] C REACTIVE PROTEINon 022 CRP [Mass/Vol] 11.2 mg/L High 0-10.0 [facility] Comment on above: Performed By: #### C REACT, ESR #### Testing performed at [address] [address] ESRon 11-27-2021 ESR (Bld) [Velocity] 27 mm/h High 0-20 [facility] Comment on above: Performed By: #### C REACT, ESR #### Testing performed at [address] [address] C REACTIVE PROTEINon 021 CRP [Mass/Vol] 6.9 mg/L 0 - 10.0 MG/L [facility] SEDIMENTATION RATE, AUTOMATE Don 10-29-2021 ESR (Bld) [Velocity] 33 mm/h High [facility] Interpretation and review of laboratory results Abnormal [facility] CBC, EDIF, PLATELETon 2019 ABSOLUTE BASOPHIL COUNT 0.1 10*3/uL 0 - 0.2 10*3/uL [facility] Basophils/100 WBC (Bld) 0.5 % 0 - 2 % [facility] Differential cell count method Nom (Bld) AUTO DIFF % [facility] Eosinophils (Bld) [#/Vol] 0.00 10*3/uL 0 - 0.7 10*3/uL [facility] Eosinophils/100 WBC (Bld) 0.1 % 0 - 11 % [facility] Erythrocyte distribution width (RBC) [Ratio] 16.4 % High 11.5 - 14.5 % [facility] Hematocrit (Bld) [Volume fraction] 34.0 % Low 42 - 52 % [facility] Hemoglobin (Bld) [Mass/Vol] 10.9 g/dL Low [facility] Interpretation and review of laboratory results Abnormal [facility] Lymphocytes (Bld) [#/Vol] 0.90 10*3/uL Low 1.2 - 3.4 10*3/uL [facility] Lymphocytes/100 WBC (Bld) 6.9 % Low 20 - 55 % [facility] MCH (RBC) [Entitic mass] 27.8 pg 26 - 35 PG [facility] MCHC (RBC) [Mass/Vol] 32.1 g/dL [facility] MCV (RBC) [Entitic vol] 86.4 fL [facility] Monocytes (Bld) [#/Vol] 0.9 10*3/uL High 0 - 0.7 10*3/uL [facility] Monocytes/100 WBC (Bld) 7.1 % 0 - 10 % [facility] Neutrophils (Bld) [#/Vol] 11.2 10*3/uL High 1.4 - 6.5 10*3/uL [facility] Neutrophils/100 WBC (Bld) 85.4 % High 37 - 75 % [facility] Platelet mean volume (Bld) [Entitic vol] 8.1 fL [employer] [facility] Platelets (Bld) [#/Vol] 247 10*3/uL 130 - 400 10*3/uL [employer] [facility] RBC (Bld) [#/Vol] 3.93 10*6/uL Low 4 - 6.1 10*6/uL [facility] WBC (Bld) [#/Vol] 13.1 10*3/uL High 3.6 - 11 10*3/uL [facility] REPEAT ABO/RH (D) TYPINGon 1 12-29-2019 ABO and Rh group Nom (Bld ) Positive [facility] XR KNEE LEFT 2 VIEWSon 10-28 IMPRESSION: Status p ost total knee arthroplasty revision with expected postoperative changes. [employer] EXAM: XR KNEE LEFT 2 VIEWS HISTORY: [...] the soft tissues with overlying skin elizabeth. [employer] User, Interfaces - 10/28/2020 3:18 PM EST [...] knee arthroplasty revision with expected postoperative changes. [employer] NUC WBC STUDYon 09-24-2020 IMPRESSION: Hyperemi a to the left knee with no definite evidence for infected prosthesis. [facility] NUCLEAR MEDICINE TOT AL BODY BONE SCAN [...] blood cell uptake in the right knee. [employer] User, Interfaces - 09/24/2020 5:04 PM EST [...] with no definite evidence for infected prosthesis. [employer] NUC 3 PHASE LIMITED BONE SCA Non 09-19-2020 IMPRESSION: Findings concerning for loosening or infection in the medial tibial plateau portion of the left knee prosthesis. No evidence of loosening or infection in the right knee. [facility] NUCLEAR MEDICINE TRIPLE-PHASE BONE SCAN HISTORY: Left [...] or delayed uptake in the right knee. [employer] User, Interfaces - 09/19/2020 2:47 PM EDT [...] loosening or infection in the right knee. [employer] LARGE JOINT/BURSA INJECTION AND/OR ASPIRATION: L kneeon [...] complications The patient was prepped with Chloraprep. [employer] CNOVon 02-23-2019 CNOV Office Visit (PULMMN ) LÓPEZ CORTÉS ([id number]) 1950 M Date Time Provider Department 02/23/19 [...] local physician and understands to return to [facility] if there is evidence of functional decline. [...] today's CT scan. Referring Provider: GADIEL RHODES [[id number]] Allergies As of Date: 02/23/2019 Noted Allergy [...] Status:Closed by GADIEL RHODES MD on 02/24/19 [facility] CT CHEST WO IVCONon 02-24-[address] CHEST WO IVCON * * *Final Report* * * DATE OF EXAM: Feb 23 2019 12:40PM [facility] 0541 - CT CHEST WO IVCON / [...] lesion. Upper abdomen: Unchanged. IMPRESSION: STABLE CT. Letter Of Credit Clerk: PSCRadha Transcribe Date/Time: Feb 23 2019 4:08P Dictated by : LAURA DAVIDSON MD This examination was interpreted and the report reviewed and electronically signed by: LAURA DAVIDSON MD on Feb 23 2019 4:30PM EST [id number] Normal [facility] PROGRESSon 02-23-2019 Protein mass conc HNO ID: [id number] Author: Gadiel Rhodes Service: ? Author Type: [...] local physician and understands to return to [facility] if there is evidence of functional decline. No need for additional CT imaging at this time. 2. Lung nodules. 10 mm subpleural nodule incidentally noted on prior chest CT. Has smoking history but discontinued 35 years ago. Nodule now docimented to be stable since 10/2017. No need for additional surveillance. I will see Mr. Cortés back in 6 months. Normal [facility] Protein mass conc HNO ID: [id number] Author: ALEX Kat (Ct) Service: Radiology Author Type: Clinical Manager Erp Type: Progress Notes Filed: 02/23/2019 12:42 PM [...] Kat February 23, 2019 12:42 PM Normal [facility] CNOVon 10-16-2018 CNOV Office Visit (PULMMN ) LÓPEZ CORTÉS ([id number]) 1950 M Date Time Provider Department 10/16/18 [...] Visit Diagnosis:Lung nodules [R91.8] Order(s):CT CHEST WO FERNANDEZON [[id number]] Order #: [id number] FUTURE Prescriptions as of 10/16/2018 Sig: PANTOPRAZOLE [...] by GADIEL RHODES MD on 10/22/18 Normal [facility] PROGRESSon 10-16-2018 Protein mass conc HNO ID: [id number] Author: Gadiel Rhodes Service: (none) Author Type: [...] Mr. Cortés back in 6 months. 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 There are no occupational exposures. There [...] No history of dysuria, frequency or incontinence. SHAMPOO PERSON: NA MUSCULOSKELETAL: Negative for joint pain or [...] MD 04/16/2018 10:48 PM Signed . [facility] [place] Note Mr. 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 Mold: No significant exposure. [...] personally reviewed by me Data Reviewed from [facility] (in addition to that noted in [...] Pre ? ? % ? Date ? 650326 ? Time ?02:22PM ? Height ?169.1 ? [...] management of GERD/heartburn ? Will be seeing ship superintendent (consider nasal probe study/pH study ? Recommend [...] Lisa Hazel MD Internal Medicine PGY-III Pager [phone] Attending Addendum: I have personally interviewed and [...] Rhodes M.D. Chair, Department of Pulmonary Medicine [facility] Referring Provider: SCOTT PEREZ [[id number]] Allergies As of Date: 03/20/2018 Noted Allergy Reaction SULFA (SULFONAMIDE ANTIBIOTICS) 03/20/2018 16 - Unknown Comments: Reaction as a kid - unsure Date Reviewed: 03/20/2018 Reviewed by: Jemal (Rn) ANOOP Wilks - Fully Assessed Reason for Visit: Consult [502] Primary Visit Diagnosis:ILD (interstitial lung disease) (HCC) [J84.9] Other Visit Diagnosis:Multiple lung nodules [R91.8] Order(s):SPIROMETRY BASELINE ONLY [[id number]] Order #: [id number] FUTURE LUNG DIFFUSION CAPACITY (DLCO) [[id number]] Order #: [id number] FUTURE Prescriptions as of 03/20/2018 Sig: PANTOPRAZOLE [...] March 20, 2018 Scott Perez MD (via [employer]) Re: López Allenney ( 1950) Dear Dr. 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 There are no occupational exposures. There [...] No history of dysuria, frequency or incontinence. SHAMPOO PERSON: NA MUSCULOSKELETAL: Negative for joint pain or [...] M.D. Chair, Department of Pulmonary Medicine [facility] [place] [facility] Cc: Dr. Tess Fuentes [address] [place] [address] Dr. Francis Giron [address] [facility] [place] [address] Mr. López Cortés [address] [place] [address] Encounter Status:Closed by GADIEL RHODES MD on 04/16/18 Normal [facility] PROGRESSon 03-20-2018 Protein mass conc HNO ID: [id number] Author: Gadiel Rhodes Service: (none) Author Type: Physician Type: Progress Notes Filed: 04/16/2018 10:48 PM Note Text: . [facility] [place] Note Mr. 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 Mold: No significant exposure. [...] personally reviewed by me Data Reviewed from [facility] (in addition to that noted in [...] Pre ? ? % ? Date ? 659112 ? Time ?02:22PM ? Height ?169.1 ? [...] management of GERD/heartburn ? Will be seeing ship superintendent (consider nasal probe study/pH study ? Recommend [...] Lisa Hazel MD Internal Medicine PGY-III Pager [phone] Attending Addendum: I have personally interviewed and [...] Rhodes M.D. 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 There are no occupational exposures. There [...] No history of dysuria, frequency or incontinence. SHAMPOO PERSON: NA MUSCULOSKELETAL: Negative for joint pain or [...] Mr. Cortés back in 6 months. Normal [facility] CT ABDOMEN PELVIS W IV CONTR Michele [...] by:KENDELL Murrelligned by:Christiano Hansen MD10/25/17Final result Normal [facility] CT CHEST W CONTRASTon 2016 CT CHEST [...] by:KENDELL Murrelligned by:Christiano Hansen MD10/25/17Final result Normal [facility] CBC with Diffon 10-25-2017 Abs. Basophil 0.00 k/uL Normal 0.0-0.2 [facility] Comment on above: Performed By: #### C DP, CP ####[address] [address] Abs.Neutrophil (Seg) 16.04 k/uL High 1.3-9.1 [facility] Comment on above: Performed By: #### C DP, CP ####[address] [address] Basophils/100 WBC Auto (Bld) 0 % Normal 0-2 [facility] Comment on above: Performed By: #### C DP, CP ####[address] [address] Blood morphology Normal Normal [facility] Comment on above: Result Comment: Perf ormed at [facility] [address] [place] [address] Performed By: #### C DP, CP ####[facility] [facility] [place] [address] Eosinophils 0.00 10*3/uL Normal 0.0-0.4 [facility] Comment on above: Performed By: #### C DP, CP ####[facility] [facility] [place] [address] Eosinophils/100 leukocytes 0 % Normal 0-4 [facility] Comment on above: Performed By: #### C DP, CP ####[facility] [place] [address] Lymphocytes 0.96 10*3/uL Low 1.0-4.8 [facility] Comment on above: Performed By: #### C DP, CP ####[facility] [facility] [place] [address] Lymphocytes/100 leukocytes 5 % Low 24-44 [facility] Comment on above: Performed By: #### C DP, CP ####[facility] [facility] [place] [address] Monocytes 2.10 10*3/uL High 0.1-1.3 [facility] Comment on above: Performed By: #### C DP, CP ####[facility] [facility] [place] [address] Monocytes/100 leukocytes 11 % High 1-7 [facility] Comment on above: Performed By: #### C DP, CP ####[facility] [place] [address] Neutrophil (Seg) 84 % High 36-66 [facility] Comment on above: Performed By: #### C DP, CP ####[facility] [place] [address] Erythrocyte distribution width Auto Ratio (RBC) 14.1 % Normal 11.5-14.9 [facility] Comment on above: Performed By: #### C DP, CP ####[address] [place] [place] [address] Erythrocytes (RBC) 5.37 10*6/uL Normal 4.5-5.9 [facility] Comment on above: Performed By: #### C DP, CP ####[address] [address] [place] [address] Hematocrit (HCT) 50.7 % Normal 41-53 [facility] Comment on above: Performed By: #### C DP, CP ####[facility] [place] [address] Hemoglobin mass conc (Bld) 16.8 g/dL Normal 13.5-17.5 [facility] Comment on above: Performed By: #### C DP, CP ####[facility] [place] [address] MCH 31.2 pg Normal 26-34 [facility] Comment on above: Performed By: #### C DP, CP ####[address] [place] [address] [place] [address] MCHC mass conc (RBC) 33.1 g/dL Normal 31-37 [facility] Comment on above: Performed By: #### C DP, CP ####[address] [address] [place] [address] MCV 94.4 fL Normal 80-100 [facility] Comment on above: Performed By: #### C DP, CP ####[address] [address] [place] [address] Platelet mean volume (PMV) 9.0 fL Normal 6.0-12.0 [facility] Comment on above: Performed By: #### C DP, CP ####[facility] [facility] [place] [address] Platelets 227 10*3/uL Normal 150-450 [facility] Comment on above: Performed By: #### C DP, CP ####[facility] [facility] [place] [address] WBC (Leukocytes) 19.1 10*3/uL High 3.5-11.0 [facility] Comment on above: Performed By: #### C DP, CP ####[facility] [place] [address] Auto Diff Performed NOT REPORTED Normal [facility] Comment on above: Performed By: #### C DP, CP ####[facility] [place] [address] Erythrocyte morphology NOT REPORTED Normal [facility] Comment on above: Performed By: #### C DP, CP ####[facility] [place] [address] Granulocytes/100 WBC (Bld) NOT REPORTED Normal 0.00-0.30 [facility] Comment on above: Performed By: #### C DP, CP ####[facility] [facility] [place] [address] Immature granulocytes #/vol (Bld) NOT REPORTED Normal 0 [facility] Comment on above: Performed By: #### C DP, CP ####[facility] [place] [address] Platelets NOT REPORTED Normal [facility] Comment on above: Performed By: #### C DP, CP ####[address] [address] WBC Morphology NOT REPORTED Normal [facility] Comment on above: Performed By: #### C DP, CP ####[facility] [facility] [place] [address] Comp Metabolic Profon 2016 (cont.) Normal [facility] Comment on above: Result Comment: Aver age GFR for 60-69 years old: 85 mL/min/1.73sq mChronic Kidney Disease: <60 mL/min/1.73sq mKidney failure: <15 mL/min/1.73sq meGFR calculated using average adult body mass. Additional eGFR calculator available at:http://www.[employer]/multiple_crcl_2012.htmPerformed at [facility] [address] [place] [address] Performed By: #### C DP, CP ####[facility] [place] [address] Alanine aminotransferase (ALT) 35 U/L Normal 5-41 [facility] Comment on above: Performed By: #### C DP, CP ####[facility] [place] [address] Albumin 4.4 g/dL Normal 3.5-5.2 [facility] Comment on above: Performed By: #### C DP, CP ####[facility] [facility] [place] [address] Alkaline Phos 128 U/L Normal 40-129 [facility] Comment on above: Performed By: #### C DP, CP ####[facility] [place] [address] Anion gap 14 mmol/L Normal 9-17 [facility] Comment on above: Performed By: #### C DP, CP ####[address] [place] [address] Aspartate aminotransferase (AST) 50 U/L High <40 [facility] Comment on above: Performed By: #### C DP, CP ####[facility] [place] [address].[place] [address] Bilirubin Ql (U) 1.12 mg/dL Normal 0.3-1.2 [facility] Comment on above: Performed By: #### C DP, CP ####[address] [place] [address] Calcium 9.2 mg/dL Normal 8.6-10.4 [facility] Comment on above: Performed By: #### C DP, CP ####[address] [place] [address] Chloride 107 mmol/L Normal 98-107 [facility] Comment on above: Performed By: #### C DP, CP ####[address] [address] CO2 23 mmol/L Normal 20-31 [facility] Comment on above: Performed By: #### C DP, CP ####[address] [place] [address] Creatinine 1.30 mg/dL High 0.70-1.20 [facility] Comment on above: Performed By: #### C DP, CP ####[address] [place] [address] eGFR (non-black) 55 mL/min/{1.73_m2} Low >60 [facility] Comment on above: Performed By: #### C DP, CP ####[address] [address] eGFR (non-black) mL/min/{1.73_m2} Normal >60 [facility] Comment on above: Performed By: #### C DP, CP ####[address] [place] [address] Glucose mass conc 111 mg/dL High 70-99 [facility] Comment on above: Performed By: #### C DP, CP ####[facility] [place] [address] Potassium molar conc 4.3 mmol/L Normal 3.7-5.3 [facility] Comment on above: Performed By: #### C DP, CP ####[facility] [facility] [place] [address] Protein 7.3 g/dL Normal 6.4-8.3 [facility] Comment on above: Performed By: #### C DP, CP ####[facility] [place] [address].[place] [address] Sodium 144 mmol/L Normal 135-144 [facility] Comment on above: Performed By: #### C DP, CP ####[facility] [place] [address] [place] [address] Urea nitrogen 24 mg/dL High 8-23 [facility] Comment on above: Performed By: #### C DP, CP ####[facility] [place] [address] [place] [address] Albumin/Globulin Ratio NOT REPORTED Normal 1.0-2.5 [facility] Comment on above: Performed By: #### C DP, CP ####[facility] [place] [address] BUN/CRE Ratio NOT REPORTED Normal 9-20 [facility] Comment on above: Performed By: #### C DP, CP ####[facility] [place] [address] [place] [address] Staging: NOT REPORTED Normal [facility] Comment on above: Performed By: #### C DP, CP ####[facility] [place] [address] Vital Signs Date Time Vital Sign Value Performing Clinician Facility 08-14-2024 14:41-0400 Diastolic blood pressure 80 mm[Hg] Obey NILL [facility] 08-14-2024 14:41-0400 Heart rate 68 /min Obey NILL [facility] 08-14-2024 14:41-0400 Respiratory rate 16 /min Obey NILL [facility] 08-14-2024 14:41-0400 Systolic blood pressure 118 mm[Hg] Obey NILL [facility] 01-31-2024 08:42-0400 Blood Pressure Location Obey NILL [facility] 01-31-2024 08:42-0400 Diastolic blood pressure 82 mm[Hg] Obey NILL [facility] 01-31-2024 08:42-0400 Heart rate 83 /min Obey NILL [facility] 01-31-2024 08:42-0400 Respiratory rate 16 /min Obey NILL [facility] 01-31-2024 08:42-0400 Systolic blood pressure 120 mm[Hg] Obey NILL [facility] 11-23-2023 08:25-0500 Body height 172.7 cm Bhavana Addison APRNDDStocks Work Phone: [employer] [facility] 11-23-2023 08:25-0500 Body mass index (BMI) [Ratio] 34.21 kg/m2 Bhavana Addison [employer] Work Phone: [facility] 11-23-2023 08:25-0500 Body weight 102.06 kg Bhavana Addison APRN-[employer] Work Phone: [facility] 05-16-2023 09:32-0400 Blood Pressure Location Darwin RICHMOND [facility] 05-16-2023 09:32-0400 Diastolic blood pressure 75 mm[Hg] Darwin RICHMOND [facility] 05-16-2023 09:32-0400 Heart rate 75 /min Darwin RICHMOND [facility] 05-16-2023 09:32-0400 Respiratory rate 16 /min Darwin RICHMOND [facility] 05-16-2023 09:32-0400 Systolic blood pressure 129 mm[Hg] Darwin RICHMOND [facility] 06-16-2022 10:13-0400 Body height 172.7 cm Barak Hebert MD Work Phone: [facility] 06-16-2022 10:13-0400 Body mass index (BMI) [Ratio] 35.28 kg/m2 Barak Hebert MD Work Phone: [facility] 06-16-2022 10:13-0400 Body weight 105.23 kg Barak Hebert MD Work Phone: [facility] 05-26-2022 07:57-0400 Body height 172.7 cm Gadiel Floyd MD Work Phone: [facility] 05-26-2022 07:57-0400 Body mass index (BMI) [Ratio] 35.28 kg/m2 Gadiel Floyd MD Work Phone: [facility] 05-26-2022 07:57-0400 Body temperature 97.7 [degF] Gadiel Floyd MD Work Phone: [facility] 05-26-2022 07:57-0400 Body weight 105.23 kg Gadiel Floyd MD Work Phone: [facility] 02-17-2022 12:58-0400 Body height 172.7 cm Gadiel Floyd MD Work Phone: [facility] 02-17-2022 12:58-0400 Body mass index (BMI) [Ratio] 36.81 kg/m2 Gadiel Floyd MD Work Phone: [facility] 02-17-2022 12:58-0400 Body temperature 98.2 [degF] Gadiel Floyd MD Work Phone: [facility] 02-17-2022 12:58-0400 Body weight 109.8 kg Gadiel Floyd MD Work Phone: [facility] 10-29-2021 11:09-0500 Body height 172.7 cm Bhavana Addison [employer] Work Phone: [facility] 10-29-2021 11:09-0500 Body mass index (BMI) [Ratio] 36.49 kg/m2 Bhavana Addison [employer] Work Phone: [facility] 10-29-2021 11:09-0500 Body temperature 97.2 [degF] Bhavanaroger Addison [employer] OFF[employer]ER[employer] Work Phone: [facility] 10-29-2021 11:09-0500 Body weight 108.86 kg Bhavana Nila [employer] OFF[employer] Work Phone: [facility] 11-19-2020 11:08-0500 BMI (Body Mass Index) 34.21 kg/m2 [facility] 11-19-2020 11:08-0500 Body Temperature 97.59 [degF] [facility] 11-19-2020 11:08-0500 Body weight 102.06 kg [facility] 11-19-2020 11:08-0500 Height 172.7 cm [facility] 10-29-2020 15:11-0500 BP Diastolic 72 mm[Hg] [facility] 10-29-2020 15:11-0500 BP Systolic 148 mm[Hg] [facility] 10-29-2020 15:11-0500 Pulse (Heart Rate) 74 /min [facility] 10-29-2020 15:11-0500 Pulse Oximetry 100 % [facility] 10-29-2020 15:11-0500 Respiratory Rate 16 /min [facility] 10-29-2020 08:00-0500 Body Temperature 97.39 [degF] [facility] 10-28-2020 15:15-0500 BMI (Body Mass Index) 32.23 kg/m2 [facility] 10-28-2020 15:15-0500 Body weight 96.[address] [facility] 10-28-2020 15:15-[address] [facility] 09-11-2020 13:55-0400 BMI (Body Mass Index) 31.96 kg/m2 [facility] 09-11-2020 13:55-0400 Body Temperature 97.11 [degF] [facility] 09-11-2020 13:55-0400 Body weight 95.[address] [facility] 09-11-2020 13:55-[address] [facility] Encounters Encounter Date Encounter Type Care Provider Facility Start: 08-14-2024 End: 08-14-2024 ambulatory Obey ALAS Facility: [facility] Start: 08-14-2024 End: 08-14-2024 Patient encounter procedure Obey ALAS [facility] Start: 06-05-2024 End: 06-05-2024 ambulatory SOLOMON IGNACIO Not Available Start: 03-06-2024 End: 03-06-2024 ambulatory Obey ALAS Facility: [facility] Start: 03-06-2024 End: 03-06-2024 Patient encounter procedure Obey ALAS [facility] [place] Start: 02-28-2024 End: 02-28-2024 ambulatory Obey R NILL Facility: [facility] Start: 02-28-2024 End: 02-28-2024 Patient encounter procedure Obey R NILL General Surgery [facility] [place] Start: 01-31-2024 End: 01-31-2024 ambulatory Obey R NILL Facility: [facility] Start: 01-31-2024 End: 01-31-2024 Patient encounter procedure Obey R NILL [facility] [place] Start: 01-20-2024 ambulatory Obey VALLESL Facility:[facility]ri [facility] Start: 11-23-2023 End: 11-23-2023 Office outpatient visit 15 minutes Bhavana FLORES Work Phone: [facility] Comment on above: Hx of total knee art hroplasty, left (Primary Dx) Start: 11-23-2023 End: 11-23-2023 Subsequent hospital visit by physician Bhavana FLORES Work Phone: [facility] Start: 05-16-2023 End: 05-16-2023 Patient encounter procedure Darwin RICHMOND [facility] Start: 01-27-2023 End: 01-28-[address] TESS FUENTES . Facility: Start: 01-12-2023 End: 01-12-2023 Patient encounter procedure Darwin RICHMOND [facility] Start: 06-16-2022 ambulatory TESS FUENTES [facility] Start: 06-16-2022 End: 06-16-2022 Office outpatient visit 15 minutes Barak Hebert MD Work Phone: 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 Start: 05-26-2022 End: 05-26-2022 Office outpatient visit 10 minutes Gadiel Floyd MD Work Phone: [facility] Comment on above: Bilateral thumb pain (Primary Dx) Start: 04-15-2022 End: 04-16-[address] TESS FUENTES . Facility:[facility] Start: 04-13-2022 End: 04-14-[address] TESS FUENTES . Facility:[facility] Start: 04-10-2022 End: 04-11-[address] TESS FUENTES . Facility: Start: 04-09-2022 End: 04-10-[address] TESS FUENTES . Facility: Start: 02-17-2022 ambulatory [facility] Start: 02-17-2022 End: 02-17-2022 Office outpatient new 30 minutes Gadiel Floyd MD Work Phone: [facility] Comment on above: Bilateral thumb pain (Primary Dx); Primary osteoarthritis of first carpometacarpal joint of left hand Start: 02-17-2022 End: 02-17-2022 Subsequent hospital visit by physician Gadiel Floyd MD Work Phone: [facility] Start: 12-17-2021 ambulatory BARAK HEBERT [facility] Start: 12-17-2021 End: 12-17-2021 Office outpatient visit 15 minutes Barak Hebert MD Work Phone: [facility] Comment on above: Bilateral thumb pain (Primary Dx); Left knee pain, unspecified chronicity Start: 11-27-2021 ambulatory [facility] Start: 10-29-2021 End: 10-29-2021 Postop follow up visit related to original px Barak Hebert MD Work Phone: [facility] Comment on above: Hx of total knee art hroplasty, left (Primary Dx) Start: 10-29-2021 End: 10-29-2021 Subsequent hospital visit by physician Bhavana FLORES Work Phone: [facility] Start: 02-26-2021 End: 02-26-2021 Subsequent hospital visit by physician Barak Hebert Work Phone: [facility] Start: 11-19-2020 End: 11-19-2020 Postop follow up visit related to original px Kaila Richmond Work Phone: [facility] Comment on above: Hx of total knee art hroplasty, left (Primary Dx); Postoperative pain of knee Start: 11-19-2020 End: 11-19-2020 Subsequent hospital visit by physician Kaila Richmond Work Phone: [facility] Start: 10-28-2020 End: 10-29-2020 Evaluation and management of inpatient Barak Hebert Work Phone: [facility] Comment on above: Mechanical loosening of internal left knee prosthetic joint Start: 09-24-2020 End: 09-24-2020 Subsequent hospital visit by physician Barak Hebert Work Phone: [facility] Comment on above: Arrived Start: 09-23-2020 End: 09-23-2020 Subsequent hospital visit by physician Barak Hebert Work Phone: [facility] Comment on above: Arrived Start: 09-19-2020 End: 09-19-2020 Subsequent hospital visit by physician Barak Hebert Work Phone: [facility] Comment on above: Arrived Start: 09-11-2020 End: 09-11-2020 Subsequent hospital visit by physician Barak Hebert Work Phone: [facility] Start: 09-11-2020 End: 09-11-2020 Office outpatient new 45 minutes Barak Hebert Work Phone: [facility] Comment on above: Left knee pain, unsp ecified chronicity (Primary Dx); Pain in prosthetic joint, initial encounter Start: 02-23-2019 End: 02-26-2019 Patient encounter procedure GADIEL RHODES [facility] Start: 10-16-2018 End: 10-23-2018 Patient encounter procedure GADIEL RHODES [facility] Start: 03-20-2018 End: 04-19-2018 Patient encounter procedure GADIEL RHODES [facility] Start: 11-23-2017 End: 11-24-2017 Ambulatory DEFAULT PHYSICIAN Facility:[facility] Start: 10-25-2017 End: 10-26-2017 Emergency department patient visit ROBERTO GRUBER [facility] Procedures Date Procedure Procedure Detail Performing Clinician Start: 01-27-[address] SHIRLEY FUENTES . Comment on above: Performed By: #### P SASC, VITAD #### [facility] [address] [address] [address] Braulio Fritz Start: 04-10-[address] SHIRLEY FUENTES . Comment on above: Performed By: #### B 12FOL, VITAD, PSASC, IRON #### [facility] [address] [address] [address] Braulio Fritz Start: 02-17-2022 Arthrocentesis aspir &/inj small jt/bursa w/o us Irene Parker Start: 10-29-2020 Complete blood count with white cell differential, automated [employer] Work Phone: Start: 10-28-2020 X-ray of left knee [employer] Phone: Start: 10-28-2020 End: 10-28-2020 Cul bact roberto aerobic isol xcpt ur blood/stool [employer] Phone: Start: 10-28-2020 End: 10-28-2020 Culture bacterial any source anaerobic iso&id [employer] Phone: Start: 10-28-2020 End: 10-28-2020 Fungus identified in Unspecified specimen by Culture [employer] Phone: Start: 10-28-2020 End: 10-28-2020 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 specific culture [employer] Phone: Start: 10-28-2020 Bacteria identified in Body fluid by Culture [employer] Phone: Start: 10-28-2020 End: 10-28-2020 Revj tot knee arthrp fem&entire tibial compone Barak Hebert Work Phone: Start: 10-28-2020 Blood group typing, RH phenotyping Barak Hebert Work Phone: Start: 09-24-2020 Nuclear medicine procedure Barak Hebert Work Phone: Start: 09-19-2020 Radioisotope scan of bone Bhavana Addison Work Phone: Start: 09-11-2020 Intra-articular injection Barak Hebert Work Phone: Start: 04-26-2019 Arthroscopic knee operation Darwin RICHMOND Start: 10-25-2017 Ct abdomen & pelvis w/contrast material ROBERTO GRUBER Start: 10-25-2017 Ct thorax w/contrast material ROBERTO GRUBER Start: 10-25-2017 CBC WITH AUTO DIFFERENTIAL ROBERTO GRUBER Start: 10-25-2017 COMPREHENSIVE METABO LIC PANEL ROBERTO GRUBER Start: 10-25-2017 EKG 12-LEAD [facility]ERTO [facility] Start: 11-21-2015 Colonoscopy Oeby SELBY Arthroplasty of knee Darwin RICHMOND Arthroplasty of knee Obey EVETTE Repair of meniscus Obey WOODS Revision of knee arthroplasty Obey EVETTE Plan of Treatment Date Care Activity Detail Author Start: 07-22-2023 Influenza vaccination INFLUENZA VACC INE (#1) [facility] Start: 08-25-2022 End: 08-25-2022 Patient encounter procedure 08/25/2022 Office Visit Orthopaedics Gadiel Floyd MD [address] [place] [address] [facility] Start: 07-22-2022 Influenza vaccination INFLUENZA VACC INE (#1) [facility] Start: 06-16-2022 End: 06-16-2022 Patient encounter procedure 06/16/2022 Office Visit Orthopaedics Barak Hebert MD [address] [place] [address] [facility] Start: 05-26-2022 End: 05-26-2022 Patient encounter procedure 05/26/2022 Office Visit Orthopaedics Gadiel Floyd MD [address] [place] [address] [facility] Start: 04-19-2022 COVID-19 VACCINE (2 - Pfizer series) COVID-19 VACCINE (2 - Pfizer series) [facility] Start: 02-17-2022 End: 02-11-2023 XR Thumb - left Views [email or web address] [facility] Work Phone: Comment on above: 1 Occurrences starti ng 02/17/2022 until 02/17/2022 Expected: 02/17/2022 , Expires: 02/11/2023 Start: 02-17-2022 End: 02-11-2023 XR Thumb - right Views [email or web address] [email or web address] Work Phone: Comment on above: 1 Occurrences starti ng 02/17/2022 until 02/17/2022 Expected: 02/17/2022 , Expires: 02/11/2023 Start: 02-17-2022 End: 02-17-2022 Patient encounter procedure 02/17/2022 Office Visit Orthopaedics Gadiel Floyd MD [address] [place] [address] [facility] Start: 10-29-2021 End: 10-29-2021 Office Visit 10/29/2021 Office Visit Orthopaedics Bhavana Addison, [employer] [address] [place] [address], [place] [address] [phone] [facility] Start: 07-22-2021 Influenza vaccination [facility] Start: 02-19-2021 End: 02-19-2021 Office Visit 02/19/2021 Office Visit Orthopaedics Barak Hebert MD [address] [facility] [address] [phone] [facility] Start: 11-19-2020 End: 11-19-2020 Office Visit 11/19/2020 Office Visit Orthopaedics Kaila Richmond PA-C [address] [place] [address] [phone] [facility] Start: 10-28-2020 End: 10-28-2020 Hospital Encounter [facility] Comment on above: Mechanical loosening of internal left knee prosthetic joint, initial encounter REVISION ARTHROPLAST Y KNEE left Start: 10-02-2020 End: 10-02-2020 Pre-Operative Nurse Assessment 10/02/2020 Pre-Operative Nurse Assessment Internal Medicine [facility] Pre Admission Start: 09-24-2020 Hospital Encounter 09/24/2020 Hospital Encounter Nuclear Medicine Barak Hebert MD [address] [place] [address] [phone] [facility] Start: 09-23-2020 End: 09-23-2020 Appointment 09/23/2020 Appointment Nuclear Medicine Barak Hebert MD [address] [place] [address] [phone] [facility] Start: 09-19-2020 End: 09-19-2020 Hospital Encounter [facility] Nucle[facility] r Medicine Start: 09-11-2020 End: 09-11-2021 Nuclear medicine imaging procedure NUC BONE MARROW LIMITED AREA Imaging Routine Pain in prosthetic joint, initial encounter Expected: 09/11/2020, Expires: 09/11/2021 [facility] Comment on above: Expected: 09/11/2020 , Expires: 09/11/2021 Start: 09-11-2020 End: 09-11-2021 Nuclear medicine procedure NUC WBC STUDY Imaging Routine Pain in prosthetic joint, initial encounter Expected: 09/11/2020, Expires: 09/11/2021 [facility] Comment on above: Expected: 09/11/2020 , Expires: 09/11/2021 Start: 09-11-2020 End: 09-11-2021 Radioisotope scan of bone NUC BONE SCAN WHOLE BODY Imaging Routine Pain in prosthetic joint, initial encounter Expected: 09/11/2020, Expires: 09/11/2021 [email or web address] [facility] Comment on above: Expected: 09/11/2020 , Expires: 09/11/2021 Start: 08-21-2018 Pneumococcal vaccination PNEUM OCOCCAL VACCINE SERIES (2 - PCV) [facility] Start: 01-25-2016 Abdominal aortic aneurysm screening ABDOMINAL AORTIC ANEURYSM HIGH RISK SCREEN [facility] Start: 01-25-2016 Pneumococcal vaccination [facility] Start: 2001 Colonoscopy COLORECTAL CAN CER SCREENING DISCUSSION [facility] Start: 2001 Prostate specific antigen measurement PROSTATE CANCER SCREENING DISCUSSION [facility] Start: 2001 Zoster vaccine hzv l preet for subcutaneous use ZOSTER (SHINGLES) VACCINE (1 of 2) [facility] Start: 01-25-1996 Colonoscopy COLORECTAL CAN CER SCREENING DISCUSSION [facility] Start: 01-25-1996 Screening for malign ant neoplasm of colon COLORECTAL CANCER SCREENING DISCUSSION [facility] Start: 1991 Fasting lipid profile LIPID SCREENIN G [facility] Start: 1991 Lipid panel LIPID SCREENING [facility] Start: 1970 Third diphtheria, tetanus and acellular pertussis (DTaP) vaccination TDAP (ADULT) [facility] Start: 1969 Tetanus vaccination TETANUS [facility] Start: 1967 COVID-19 VACCINE (1) COVID-19 VACCIN E (1) [facility] Start: 1963 COVID-19 VACCINE (1) COVID-19 VACCIN E (1) [facility] Start: 01-25-1956 COVID-19 VACCINE (1) COVID-19 VACCIN E (1) [facility] Start: 1951 Hepatitis C antibody , confirmatory test HEPATITIS C VIRUS SCREENING [facility] Start: 1950 Hepatitis C screening HEPATITI S C VIRUS SCREENING [facility] Start: 1950 Tetanus vaccination TETANUS [facility] ANAEROBE CULTURE [facility] Comment on above: Release Upon Orderin g for 1 Occurrences starting 10/28/2020 Bacteria identified Cx Nom (Body fld) BODY FLUID CULTURE AND DIRECT SMEAR Microbiology Routine 10/28/2020 12:35 PM EST [facility] Bacteria identified Cx Nom (Unsp spec) BACTERIAL CULTURE AND DIRECT SMEAR, LESION, TISSUE, DEVICE Microbiology Routine Mechanical loosening of internal left knee prosthetic joint, initial encounter Release Upon Ordering for 1 Occurrences starting 10/28/2020 [facility] Comment on above: Release Upon Orderin g for 1 Occurrences starting 10/28/2020 Fungus identified Cx Nom (Unsp spec) [facility] Comment on above: Release Upon Orderin g for 1 Occurrences starting 10/28/2020 Mycobacterium sp identified Org specific cx Nom (Tiss) ACID FAST CULTURE, TISSUE Microbiology Routine Mechanical loosening of internal left knee prosthetic joint, initial encounter Release Upon Ordering for 1 Occurrences starting 10/28/2020 [facility] Comment on above: Release Upon Orderin g for 1 Occurrences starting 10/28/2020 Mycobacterium sp identified Org specific cx Nom (Unsp spec) [facility] End: 09-23-2020 Nuclear medicine imaging procedure NUC BONE MARROW LIMITED AREA Imaging Routine Pain in prosthetic joint, initial encounter 1 Occurrences starting 09/23/2020 until 09/23/2020 [facility] Comment on above: 1 Occurrences starti ng 09/23/2020 until 09/23/2020 Nuclear medicine marycarmen ging procedure NUC BONE MARROW LIMITED AREA Imaging Routine Pain in prosthetic joint, initial encounter 09/23/2020 12:09 PM [facility] End: 09-23-2020 Nuclear medicine procedure NUC WBC STUDY Imaging Routine Pain in prosthetic joint, initial encounter 1 Occurrences starting 09/23/2020 until 09/23/2020 [facility] Comment on above: 1 Occurrences starti ng 09/23/2020 until 09/23/2020 Nuclear medicine procedure NUC WBC STUDY Imaging Routine Pain in prosthetic joint, initial encounter 09/23/2020 6:01 AM [facility] Radiography for bone length studies [facility] TISSUE CULTURE [facility] X-ray of left knee [facility] X-ray of left knee XR KNEE LEFT 3 VIEWS Imaging Routine Hx of total knee arthroplasty, left 10/29/2021 10:55 AM [facility] XR Knee - left 3 Views XR KNEE L EFT 3 VIEWS Imaging Routine History of revision of total replacement of left knee joint [facility] XR KNEE L EFT 3 VIEWS Imaging Routine Hx of total knee arthroplasty, left 11/23/2023 8:19 AM [facility] Immunizations Immunization Date Immunization Notes Care Provider Fa sam 08-21-2023 influenza virus vacc ine, unspecified formulation Obey ALAS [facility] [place] 09-24-2022 SARS-CoV-2 (COVID-19 ) [id number] Darwin RICHMOND [facility] 08-31-2022 influenza virus vacc ine, unspecified formulation Darwin RICHMOND [facility] 03-29-2022 SARS-CoV-2 mRNA (cguuqrnvlic-jisl-crsdks e) vaccine Darwin RIHCMOND [facility] 09-21-2021 SARS-CoV-2 (COVID-19 ) Ad26 vaccine, recombinant Darwin RICHMOND [facility] 09-13-2021 SARS-CoV-2 (COVID-19 ) mRNA-1273 vaccine Darwin RICHMOND [facility] 02-19-2021 SARS-CoV-2 (COVID-19 ) Ad26 vaccine, recombinant Darwin RICHMOND [facility] 02-04-2021 SARS-CoV-2 (COVID-19 ) mRNA-1273 vaccine Darwin RICHMOND [facility] 01-19-2021 SARS-CoV-2 (COVID-19 ) Ad26 vaccine, recombinant Darwin RICHMOND [facility] 01-07-2021 SARS-CoV-2 (COVID-19 ) mRNA-1273 vaccine Darwin RICHMOND [facility] 09-03-2020 influenza virus vacc ine, unspecified formulation Bhavana Addison APRN-SPECIMEN [employer] Work Phone: [facility] 09-04-2019 influenza virus vacc ine, unspecified formulation Darwin RICMHOND [facility] 08-22-2018 influenza virus vacc ine, unspecified formulation Darwin RICHMOND [facility] 08-24-2017 influenza virus vacc ine, unspecified formulation Darwin RICHMOND [facility] 08-21-2017 pneumococcal polysaccharide vaccine, 23 valent Darwin RICHMOND [facility] 08-01-2017 pneumococcal polysaccharide vaccine, 23 valent Darwin RICHMOND [facility] 06-27-2017 pneumococcal polysaccharide vaccine, 23 valent Darwin RICHMOND [facility] 09-09-2016 influenza virus vacc ine, unspecified formulation Darwin RICHMOND [facility] Payers Date Payer Category Payer Unknown [id number] 2020 Unknown 2020 Unknown [id number] 2017 Unknown [id number] 2016 Medicare [id number] 2016 Medicare MEDICARE MEDICAR E A AND B [id number] 2016-Present [address] [place] [address] [id number] 1959 Medicare [id number] 1959 Private Health Insurance [id number] 1959 Unknown [id number] 1951 Unknown [id number] [id number] 83 1951 Unknown [id number] 2.16.840.1.734587.3.579.2.9 83 1951 Unknown [id number] 2.16.840.1.247100.3.579.2.9 83 1951 Unknown [id number] 2.16.840.1.956637.3.579.2.9 83 1951 Unknown [id number] 2.16.840.1.611432.3.579.2.9 83 1951 Unknown [id number] 2.16.840.1.319864.3.579.2.9 83 1951 Unknown [id number] 2.16.840.1.464921.3.579.2.9 83 1951 Unknown [id number] 2.16.840.1.040082.3.579.2.9 83 1951 Unknown [id number] 2.16.840.1.029473.3.579.2.5 93 1951 Unknown [id number] 2.16.840.1.808744.3.579.2.5 93 1951 Unknown [id number] 2.16840.1.828953.3.579.2.5 93 1951 Unknown [id number] 2.16.840.1.697417.3.579.2.5 93 1951 Unknown [id number] 2.16.840.1.863585.3.579.2.5 93 1951 Unknown [id number] 2.16.840.1.258795.3.579.2.1 259 1951 Unknown [id number] 2.16.840.1.636395.3.579.2.7 27 1951 Unknown [id number] 2.16.840.1.674793.3.579.2.7 27 1951 Unknown [id number] 2.16.840.1.673760.3.579.2.7 27 1951 Unknown [id number] 27 Social History Date Type Detail Facility Start: 09-11-2020 End: 08-14-2024 Tobacco smoking status NHIS Former smoker [facility] History of tobacco use Cigarette Smoker [facility] Start: 09-11-2020 End: 11-23-2023 Tobacco use and exposure Never used [facility] Start: 09-11-2020 End: 11-23-2023 Alcohol intake Ex-drinker (finding) [facility] Start: 1950 Sex Assigned At Not on file A [facility] Start: 10-02-2020 End: 11-23-2023 Tobacco Comment quit 40 yrs ago [facility] Exposure to SARS-CoV -2 (event) Not sure [facility] Start: 10-01-2020 Tobacco smoking status Never s moked tobacco (finding) [facility] Start: 11-23-2023 Sex Assigned At Male F [facility] History of tobacco use Current smoker [facility] Start: 11-23-2023 History of Social function [facility] Tobacco smoking status Never [facility] [place] Medical Equipment Procedure Code Equipment Code Equipment [...] 10-28-2020 Functional Status Date Assessment Result Facility 08-14-2024 Functional Status N/A [facility] [place] 01-31-2024 Functional Status N/A [facility] [place] 05-16-2023 Functional Status N/A [facility] Clinical Notes 10-29-2021 to 01-31-2024 Maria [facility] [...] virus vaccine, inactivated 08/2023 Recorded SARS-CoV-2 (COVID-19) [id number] 09/24/2022 Recorded influenza virus vaccine, inactivated 08/31/2022 Recorded SARSCoV2 mRNA(vlczdjjqa-vitj-hjrbzz) vac 03/29/2022 Recorded SARS-CoV-2 (COVID-19) Ad26 vaccine 09/2021 Recorded SARS-CoV-2 (COVID-19) (more content not included)... [facility] Comment on above: Result Comment: Elec tronically Signed By: EVETTE RILEY, Obey Varela\Date and Time Signed: 01/31/24 09:05 EDT 11-23-2023 History of Present illness Narrative Ortho Nurse - Established Patient Intake Room#: 5 Date: 11/23/2023 8:26 AM Patient: López Cortés MR#: [id number] : 1950 Age: 73 y.o. 3yr L [...] antibiotics. López is an established patient of [employer]. He is here today for followup. He [...] his exercise program will resolve his symptoms. (DOC:[id number]) I have reviewed the findings of the clinical technical support manager and agree with their assessment. Bhavana Addison APRN-SPECIMEN BOSS Ortho Nurse - Established Patient Intake Room#: 5 Date: 11/23/2023 8:26 AM Patient: López Cortés MR#: [id number] : 1950 Age: 73 y.o. 3yr L [...] and sulfa antibiotics. documented in this encounter [facility] 05-16-2023 Hospital Discharge instructions Patient Education 05/16/2023 [...] Follow these instructions at home: Medicines Take ekdx-kup-oezxkuw and prescription medicines only as told by [...] provider. Document Revised: 02/03/2022 Document Reviewed: 02/03/2022 [employer] Patient Education 2022 [employer]. Follow Up Care 01/26/2022 15:47:19 With:ISABEL RILEY, Darwin Moreno, URL Address: [address] [place], [place] [id number]- When: Unknown Comments:[facility] 06-16-2022 History of Present illness Narrative Ortho Nurse - Established Patient Intake Room#: 1 Left Knee Revision checkup, doing great , some pain of 2 when doing steps, Clindamycin was ordered today for dental prophylaxis Date: 06/16/2022 10:17 AM Patient: López Cortés MR#: [id number] : 1950 Age: 72 y.o. Referring Physician: [...] have reviewed the findings of the clinical technical support manager and agree with their assessment. Ortho Nurse - Established Patient Intake Room#: 1 Left Knee Revision checkup, doing great , some pain of 2 when doing steps, Clindamycin was ordered today for dental prophylaxis Date: 06/16/2022 10:17 AM Patient: López Cortés MR#: [id number] : 1950 Age: 72 y.o. Referring Physician: [...] and sulfa antibiotics. documented in this encounter [facility] 05-26-2022 History of Present illness Narrative Review [...] at that time. documented in this encounter [facility] 02-17-2022 History of Present illness Narrative Review [...] shots have helped. documented in this encounter [facility] 12-17-2021 History of Present illness Narrative HPI: López is here today for evaluation of his operative knee. 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 He was last evaluated on 10/29/21 by my SPECIMEN BOSS, he was instructed to use Voltaren gel [...] have reviewed the findings of the clinical technical support manager and agree with their assessment. Ortho Nurse Established Patient Intake Room#: 2---Visit today to follow -up on Left knee pain. He has no pain when resting or sleeping. The pain starts after long walks or using stairs. He had a left TKA on 10-29-20. His pain today is a 3. Date: 12/17/2021 10:55 AM Patient: López Cortés MR#: [id number] : 1950 Age: 71 y.o. Referring Physician: [...] 12/17/2021 10:55 AM Patient: López Cortés MR#: [id number] : 1950 Age: 71 y.o. Referring Physician: [...] and sulfa antibiotics. documented in this encounter [facility] 10-29-2021 History of Present illness Narrative HPI: [...] have reviewed the findings of the clinical technical support manager and agree with their assessment. Ortho Nurse Established Patient Intake Room#: 4 Date: 10/29/2021 11:10 AM Patient: López Cortés MR#: [id number] : 1950 Age: 71 y.o. 1yr F/U [...] 10/29/2021 11:10 AM Patient: López Cortés MR#: [id number] : 1950 Age: 71 y.o. 1yr F/U [...] and sulfa antibiotics. documented in this encounter [employer] [facility] Evaluation + Plan note Future Appointments Appointment Date:05/16/2023 09:45:00 AM Scheduled Provider:Darwin RICHMOND MD Location:[facility] Appointment Type:URO Office Visit [facility] Evaluation + Plan note Future Appointments Appointment Date:02/28/2024 01:40:00 PM Scheduled Provider:Obey ALAS MD Location:[facility] Appointment Type:GS Procedure [facility] General Surgery [place] Evaluation + Plan note Future Appointments Appointment Date:03/06/2024 02:40:00 PM Scheduled Provider:Obey AALS MD Location:[facility] Appointment Type: Established 15 General Surgery Don Evaluation note Diagnosis Hx of total knee arthroplasty, left- Primary [facility] Diagnosis Bilateral thumb pain- Primary Left knee pain, unspecified chronicity documented [facility]* Diagnosis Bilateral thumb pain documented [facility]* Diagnosis Bilateral thumb pain documented in [facility]* Diagnosis Bilateral thumb pain- Primary Primary osteoarthritis of first carpometacarpal joint of left hand Primary localized osteoarthrosis, hand documented in this encounter [facility]* Diagnosis Bilateral thumb pain- Primary documented [facility]* Diagnosis History of revision of total replacement of left knee joint- Primary [facility]* Diagnosis Hx of total knee arthroplasty, left- Primary [facility] N[facility]ative No data available for this section [facility] No data available for this section [facility] No data available for this section [facility] Summary Purpose Family History No Family History Records FoundNo Family History Records FoundNo Family History Records FoundNo Family History Records FoundNo Family History Records Found No data available for this section No data available for this section No data available for this section No Family History Records Found No data available for this section No Family History Records Found Advance Directives No Advanced Directives Records FoundDocuments on File Type Date Recorded Patient Academic Success Coordinator Expl anation Advance Directives/Living Will 10/28/2020 9:12 AM LIVING WILL, POA Latest Code Status on File Code Status Date Activated Date Inactivated Comments Full Code 10/28/2020 3:43 PM Documents on File Type Date Recorded Patient Academic Success Coordinator Expl anation Advance Directives/Living Will 10/28/2020 9:12 [...] BONE SCAN WHOLE BODY Barak Hebert MD [address] [place], [place] [phone] [facility] Nuclear Medicine [address] [place], [place] [phone] Status Reason Specialty Diagnoses / Procedures Referred By Contact Referred To Contact Auth Not Needed Nuclear Medicine Diagnoses Pain in prosthetic joint, initial encounter Procedures NUC WBC STUDY WY ABSCESS IMAGING, WHOLE BODY Barak Hebert MD [address] [place], [place] [phone] [place] [phone] Status Reason Specialty Diagnoses / Procedures Referred By Contact Referred To Contact Auth Not Needed Nuclear Medicine Diagnoses Pain in prosthetic joint, initial encounter Procedures NUC BONE MARROW LIMITED AREA WY BONE MARROW IMAGING, LTD Barak Hebert MD [address] [place], [place] [phone] [facility] Medicine [address] [place], [place] [phone] Status Reason Specialty Diagnoses / Procedures Referred By Contact Referred To Contact Pending Review Diagnoses Left knee pain, unspecified chronicity Procedures XR BONE LENGTH STUDY Barak Hebert MD [address] [place] [address] Status Reason Specialty Diagnoses / Procedures Referred By Contact Referred To Contact Pending Review Diagnoses Left knee pain, unspecified chronicity Procedures XR KNEE LEFT 3 VIEWS Barak Hebert MD [address] [place] [address] Status Reason Specialty Diagnoses / Procedures Referred By Contact Referred To Contact Closed Nuclear Medicine Diagnoses Pain in prosthetic joint, subsequent encounter Procedures NUC 3 PHASE LIMITED BONE SCAN WY BONE IMAGING, 3 PHASE Bhavana Addison FISHERIES OFFICER-SPECIMEN BOSS [address] [place], [place] [phone] [facility] Nuclear Medicine [address] [place], [place] [phone] Status Reason Specialty Diagnoses / Procedures Referred By Contact Referred To Contact New Request Diagnoses Hx of total knee arthroplasty, left Procedures XR KNEE LEFT 3 VIEWS Kaila Richmond PA-C [address] [place], [place] [phone] Status Reason Specialty Diagnoses / Procedures Referred By Contact Referred To Contact Closed Nuclear Medicine Diagnoses Pain in prosthetic joint, initial encounter Procedures NUC BONE MARROW LIMITED AREA WY BONE MARROW IMAGING, [facility] Barak Hebert MD [address] [place], [place] [phone] [facility] Nuclear Medicine [address] [place] [phone] Specialty Diagnoses / Procedures Referred By Contac t Referred To Contact Diagnoses Hx of total knee arthroplasty, left Procedures XR KNEE LEFT 3 VIEWS Nila Bhavana, FISHERIES OFFICER-SPECIMEN BOSS [address] [place], [place] [phone] Referral ID Status Reason Start Date Expiration Date V isits Requested Visits Authorized [id number] New Request 10/22/2021 11/16/2022 1 1 Specialty Diagnoses / Procedures Referred By Contac t Referred To Contact Physical Therapy Diagnoses Left knee pain, unspecified chronicity Barak Hebert MD [address] [place], [place] [phone] Referral ID Status Reason Start Date Expiration Date V isits Requested Visits Authorized [id number] New Request 12/17/2021 01/11/2023 1 1 Scheduling Instructions . Specialty Diagnoses / Procedures Referred By Contac t Referred To Contact Orthopaedic Surgery Diagnoses Bilateral thumb pain Barak Hebert MD [address] [place] [phone] Gadiel Floyd MD [address] [place] [address] Referral ID Status Reason Start Date Expiration Date V isits Requested Visits Authorized [id number] New Request 12/17/2021 01/11/2023 1 1 Specialty Diagnoses / Procedures Referred By Contac t Referred To Contact Diagnoses Bilateral thumb pain Procedures XR THUMB LEFT Gadiel Floyd MD [address] [place] [address] Referral ID Status Reason Start Date Expiration Date V isits Requested Visits Authorized [id number] New Request 02/11/2022 03/08/2023 1 1 Specialty Diagnoses / Procedures Referred By Contac t Referred To Contact Diagnoses History of revision of total replacement of left knee joint Procedures XR KNEE LEFT 3 VIEWS Barak Hebert MD [address] [place] [address] Referral ID Status Reason Start Date Expiration Date V isits Requested Visits Authorized [id number] New Request 06/15/2022 07/10/2023 1 1 Referral ID Status Reason Start Date Expiration Date V isits Requested Visits Authorized [id number] New Request 11/22/2023 12/16/2024 1 1 History [...] nasal MRSA screening, scheduling an appointment for [facility] [place] and the potential surgical date, and reviewing [...] file Gets together: Not on file Attends voodoo service: Not on file Active member of [...] 09/11/2020 2:10 PM Patient: López Cortés MR#: [id number] : 1950 Age: 70 y.o. Referring Physician: [...] [x]cane, []bracing Are you followed by a bi analyst? [] [x] Name: Are you followed by [...] Transfer Skill: Sit To Stand, Rehab Eval [place] (Sit-Stand Transfers) other (see comments) (SBA) Physical Assist/Nonphysical Assist: Sit/Stand 1 person assist Weight-Bearing Restrictions: Sit/Stand weight-bearing as tolerated Assistive Device For Transfer: Sit/Stand 2 wheeled walker Gait Skills, PT Eval Level of [place]: Gait stand-by assist Physical Assist/Nonphysical Assist: Gait 1 person assist Weight-Bearing Restrictions: Gait weight-bearing as tolerated Assistive Device For Transfer: Gait 2 wheeled walker Gait Distance (300ft) Gait Analysis, PT Eval Gait Pattern Used swing-through gait Gait Deviations Identified (Gait) decreased heel strike;other (see comments) (toe out ) Impairments Contributing To Gait Deviations pain;decreased ROM Stair Negotiation Level of [place]: Stair Negotiation stand-by assist Physical Assist/Nonphysical Assist: [...] Shaw, PT - 10/29/2020 3:20 PM EST 10/29/20823 Time In/Out Time In 823 Time Out 934 Total Visit Time 71 minutes Total Treatment [...] Transfer Skill: Sit To Stand, Rehab Eval [place] (Sit-Stand Transfers) other (see comments) (SBA) Physical Assist/Nonphysical Assist: Sit/Stand 1 person assist Weight-Bearing Restrictions: Sit/Stand weight-bearing as tolerated Assistive Device For Transfer: Sit/Stand 2 wheeled walker Gait Skills, PT Eval Level of [place]: Gait stand-by assist Physical Assist/Nonphysical Assist: Gait 1 person assist Weight-Bearing Restrictions: Gait weight-bearing as tolerated Assistive Device For Transfer: Gait 2 wheeled walker Gait Distance other (see comments) (125ft) Gait Analysis, PT Eval Gait Pattern Used swing-through gait Gait Deviations Identified (Gait) decreased heel strike;other (see comments) (toe out) Impairments Contributing To Gait Deviations pain;decreased ROM Stair Negotiation Level of [place]: Stair Negotiation contact guard Physical Assist/Nonphysical Assist: [...] and all mobility tasks. * Kimberly Silva, JASPER - 10/29/2020 12:06 PM EST 10/29/20 1125 [...] upon exit Therapist Information License # [id number] * Esperanza Avila MD - 10/28/2020 6:47 PM EST INPATIENT REHAB / SWINGBED PROGRESS NOTE Admit Date: 10/28/2020 Date of Evaluation: 10/28/20206:47 PM [facility] Rehab / Skilled bed LOS: 0 days [...] Supine to Sit, Rehab Eval Level of [place]: Supine/Sit stand-by assist Physical Assist/Nonphysical Assist: Supine/Sit 1 person assist Transfer Skill: Sit to Stand, Rehab Eval Level of [place]: Sit/Stand contact guard Physical Assist/Nonphysical Assist: Sit/Stand 1 person assist Weight-Bearing Restrictions: Sit/Stand weight-bearing as tolerated Assistive Device for Transfer: Sit/Stand wheeled walker Upper Body Dressing Level of [place] independent Physical Assist/Nonphysical Assist set-up required Lower Body Dressing Level of [place] moderate assist (50% patients effort) Physical Assist/Nonphysical Assist 1 person assist (including ZACKARY hose ) Toileting Level of [place] contact guard Physical Assist/Nonphysical Assist 1 person assist Grooming [place] Level (Grooming) supervision;wash face, hands General Therapy [...] hygiene training Therapist Information License # [id number] 1. Pt will complete LB dressing MOD [...] Supine to Sit, Rehab Eval Level of [place]: Supine/Sit stand-by assist Physical Assist/Nonphysical Assist: Supine/Sit 1 person assist Transfer Skill: Sit To Stand, Rehab Eval [place] (Sit-Stand Transfers) contact guard Physical Assist/Nonphysical Assist: Sit/Stand 1 person assist Weight-Bearing Restrictions: Sit/Stand weight-bearing as tolerated Assistive Device For Transfer: Sit/Stand 2 wheeled walker Gait Skills, PT Eval Level of [place]: Gait contact guard Physical Assist/Nonphysical Assist: Gait 1 person assist Weight-Bearing Restrictions: Gait weight-bearing as tolerated Assistive Device For Transfer: Gait 2 wheeled walker Gait Distance 75 feet Gait Analysis, PT Eval Gait Pattern Used swing-through gait Gait Deviations Identified (Gait) decreased gait speed;decreased heel strike;decreased step length Impairments Contributing To Gait Deviations decreased ROM;decreased strength Stair Negotiation Level of [place]: Stair Negotiation (not assessed at this time) [...] pt return home with spouse and receive PT services. Clinical Impression Co-evaluation/co-treatment performed? Yes, [...] , Rfl: pantoprazole [address] peri SAINI, Take 40 mg by mouth daily., Disp: [...] which is prescirbed. Kaila Richmond PA-C * Radha Rodriguez - 11/19/2020 11:00 AM EST Ortho Nurse Established Patient Intake Room#: 4 3wk Post-op LTKA; Derm Revision both components left total knee arthroplasty. Weight bearing as tolerated PT 2 times a week, wearing zackary hose, ATB sent to pharmacy, using cane for walking , 03/30 comes and goes. Date: 11/19/2020 11:07 AM Patient: López Cortés MR#: [id number] : 1950 Age: 70 y.o. Referring Physician: [...] Date: 10/29/2020 Discharge Time: 10/29/2020 Discharge Unit: [facility] Inpatient Rehab unit Unit Length of Stay: [...] as: ULTRAM Follow-up: Tess Fuentes MD [address] [facility] [address] In 1 week SANJUANITA louise 1 week Barak Hebert MD [address] [facility] [address] Call in 3 days Upcoming Appointments (up to five)-Some appointments for Medical Center outpatient clinics or diagnostic testing locations are not displayed below Provider Department Dept Phone 11/19/2020 11:00 AM Kaila Richmond [facility] Orthopedics [phone] Total coordination of discharge care taking greater that 30 minutes documented in this encounter Discharge Instructions * Discharge Instr - Activity* Esperanza Avila MD - 10/29/2020 8:19 AM EST As tolerated * Discharge Instr - Diet* Esperanza Avila MD - 10/29/2020 8:20 AM EST As tolerated * Discharge Instr - Notify* [place] RN - 10/29/2020 10:08 AM EST Contact Office ([phone]) if: > Total Knee ROM < 90 [...] Hour Product Support Hotline at Contact Office ([phone]) if: > Total Knee ROM < 90 [...] Don office is closed, you may call [phone] where you will be connected with an after hours orthopedic nurse that will be able to answer your questions. The morning after your discharge Dr. Don office will contact you to follow up with how your recovery is progressing at home. * Attachments The following attachments cannot be sent through Care Everywhere. * meloxicam (oral/injection) (Austrian) * oxycodone (Austrian) * acetaminophen (oral) (Austrian) * docusate and senna (Austrian) * multivitamins (Austrian) * omeprazole (Austrian) * doxycycline (oral/injection) (Austrian) documented in this encounter Additional Source Comments (unrecognized sect ion and content) No Status Records FoundNo Status Records FoundNo Status Records FoundNo Status Records FoundNo Status Records FoundNo Status Records FoundNo Status Records Found INFORMATION SOURCE (unrecogn ized section and content) DATE CREATED AUTHOR 05/16/2018 [facility] DATE CREATED AUTHOR AUTHOR'S ORGANIZ ATION 05/16/2018 [facility] DATE CREATED AUTHOR AUTHOR'S ORGANIZ ATION 02/27/2019 [facility] DATE CREATED AUTHOR AUTHOR'S ORGANIZ ATION 10/30/2022 [facility] DATE CREATED AUTHOR AUTHOR'S ORGANIZ ATION 02/02/2023 [facility] DATE CREATED AUTHOR AUTHOR'S ORGANIZ ATION 06/09/2024 [facility] EPIC DATE CREATED AUTHOR AUTHOR'S ORGANIZ ATION 08/17/2024 [facility] Reason for Visit (unrecogniz ed section and content) Status Reason Specialty Diagnoses / Procedures Referred By Contact Referred To Contact Pending Review Diagnoses Left knee pain, unspecified chronicity Procedures XR BONE LENGTH STUDY Barak Hebert MD [address] [place], [place] [address] Reason Comments Knee Pain Pain New Patient Status Reason Specialty Diagnoses / Procedures Referred By Contact Referred To Contact Closed Nuclear Medicine Diagnoses Pain in prosthetic joint, subsequent encounter Procedures NUC 3 PHASE LIMITED BONE SCAN WY BONE IMAGING, 3 PHASE Bhavana Addison, FISHERIES OFFICER-SPECIMEN BOSS [address] [place], [place] [address] [facility] [address] [place], [place] [phone] Status Reason Specialty Diagnoses / Procedures Referred By Contact Referred To Contact Closed Nuclear Medicine Diagnoses Pain in prosthetic joint, initial encounter Procedures NUC WBC STUDY WY ABSCESS IMAGING, WHOLE BODY Barak Hebert MD [address] [place], [place] [address] [facility] [address] [place], [place] [phone] Status Reason Specialty Diagnoses / Procedures Referre d By Contact Referred To Contact Diagnoses Mechanical loosening of internal left knee prosthetic joint, 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, 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] Procedures WY REVISE KNEE JOINT REPLACE,ALL PARTS REVISION ARTHROPLASTY KNEE Barak Hebert MD [address] [place], [place] [address] Reason Comments Post Op Visit Status Reason Specialty Diagnoses / Procedures Referred By Contact Referred To Contact New Request Diagnoses Hx of total knee arthroplasty, left Procedures XR KNEE LEFT 3 VIEWS Kaila Richmond PA-C [address] [place], [place] [address] Status Reason Specialty Diagnoses / Procedures Referred By Contact Referred To Contact Closed Nuclear Medicine Diagnoses Pain in prosthetic joint, initial encounter Procedures NUC BONE MARROW LIMITED AREA WY BONE MARROW IMAGING, LTD Barak Hebert MD [address] [place] [phone] [facility] [address] [place], [place] [phone] Status Reason Specialty Diagnoses / Procedures Referred By Contact Referred To Contact Auth Not Needed Nuclear Medicine Diagnoses Pain in prosthetic joint, initial encounter Procedures NUC WBC STUDY WY ABSCESS IMAGING, WHOLE BODY Barak Hebert MD [address] [place] [address] [facility] [address] [place] [phone] Status Reason Specialty Diagnoses / Procedures Referred By Contact Referred To Contact New Request Diagnoses S/P total knee arthroplasty, left Procedures XR BONE LENGTH STUDY Barak Hebert MD [address] [place], [place] [phone] Specialty Diagnoses / Procedures Referred By Contac t Referred To Contact Diagnoses Hx of total knee arthroplasty, left Procedures XR KNEE LEFT 3 VIEWS Bhavana Addison, FISHERIES OFFICER-SPECIMEN BOSS [address] [place], [place] [address] Referral ID Status Reason Start Date Expiration Date V isits Requested Visits Authorized [id number] New Request 10/22/2021 11/16/2022 1 1 Reason Comments Follow-up Reason Comments Pain Condition Update Specialty Diagnoses / Procedures Referred By Contac t Referred To Contact Diagnoses Bilateral thumb pain Procedures XR THUMB LEFT Gadiel Floyd MD [address] [place] [address] Referral ID Status Reason Start Date Expiration Date V isits Requested Visits Authorized [id number] New Request 02/11/2022 03/08/2023 1 1 Reason Comments Pain Specialty Diagnoses / Procedures Referred By Contac t Referred To Contact Orthopaedic Surgery Diagnoses Bilateral thumb pain Barak Hebert MD [address] [place] [address] Gadiel Floyd MD [address] [place] [address] Referral ID Status Reason Start Date Expiration Date V isits Requested Visits Authorized [id number] New Request 12/17/2021 01/11/2023 1 1 Reason Comments Follow-up Follow Up- Bilat Bas al Joint Arthritis/ Last Injection: 3/30/22- Pain Scale: 2/10 Bilat Referral ID Status Reason Start Date Expiration Date V isits Requested Visits Authorized [id number] New Request 11/22/2023 12/16/2024 1 1 Amaris Samayoa RN - 10/28/2020 2:35 PM ESTWhAmaris tubbs RN - 10/28/2020 12:50 PM EST Nursing Notes (unrecognized section and content) Patient ransferred to PACU via bed with this nurse and [employer] PLANT MAINTENANCE CONSULTANT. Bedside report given to ANOOP Law. Fire [...] determined in the discharge planning process with long term care social worker and the multidisciplinary team. Return to [place] from PT. C/o pain 4 out of 10. Pain pill offered but Tylenol due. PT to take tylenol and save oxicodone for after lunch. Follow up phone call to [facility], who state that they can accept to start services tomorrow. Follow up call received from Suzy at [facility]. Referral for [facility] therapistSanta to be made through [facility]. Instructed to request Santa for PT on referral. Referral sent at this time. To PT room Spoke with Suzy at [facility] regarding referral. Referring patient information, will call [...] PROCEDURE: 10/28/2020 ATTENDING PHYSICIAN: Barak Hebert M.D. ROUTER OPERATOR: Bhavana Addison CNP. PREOPERATIVE DIAGNOSIS: Failed left [...] Adequate. SPECIMENS: Include bone. INSTRUMENTATION USED: DePuy Attune size 7 left CRS femoral component with [...] on the back table according to the ibm mainframe developer s technique. They were then cemented into [...] procedure) without the assistance of a skilled surgical services assistant. A surgical services assistant was medically necessary for positioning, retraction and [...] [address] 310. POST OPERATIVE/PROCEDURE NOTE López Cortés ([id number]) SURGEON Surgeon(s) and Role: * Barak Hebert MD - Primary ROUTER OPERATOR MARK Richardson ANESTHESIOLOGIST [employer]ANT MAINTENANCE CONSULTANT: Yusef Escobedo CRNA SURGICAL STAFF Billing Collections Specialist: Kerry Richter RN Nurse Practitioner: MARK Richardson Scrub Person: Andrew Moffett RN; Alyx Miller; Martha Rolon RN Dog Sitter Validation Scientist: Escobar Rodriguez Ribbing Machine Operator: Efrem Bonner LPN PROCEDURE PERFORMED Procedure(s) (LRB): [...] TISSUE, DEVICE Barak Hebert MD 10/28/2020 1301 Bhavana Addison, FISHERIES OFFICER-SPECIMEN BOSS October 28, 2020 2:39 PM CM met with patient this date to discuss post-surgical discharge plans. Patient states that he plans to return home with his spouse and [facility] after discharge for a left knee revision. He states that lives in [place] and would like to utilize [facility] in that area. He states that he has a wheeled walker and will bring it with him on the day of surgery. CM to continue to follow and assist with discharge plans. 10/02/20 0928 Information Source Information Source patient Contact Information [employer] Name Sun Lopez RN Case Manager's Living [...] Care Teams (unrecognized sec tion and content) Clergy Member Relationship Specialty Start Date End Date Tess Fuentes MD [address] [place] [address] PCP - General Family Medicine 09/11/20 Clergy Member Relationship Specialty Start Date End Date Tess Fuentes MD [address] [place] [address] PCP - General Family Medicine 09/11/20 Clergy Member Relationship Specialty Start Date End Date Tess Fuentes MD [address] [place] [address] PCP - General Family Medicine 09/11/20 Clergy Member Relationship Specialty Start Date End Date Tess Fuentes MD [address] [place] [address] PCP - General Family Medicine 09/11/20 Clergy Member Relationship Specialty Start Date End Date Tess Fuentes MD [address] [place] [address] PCP - General Family Medicine 09/11/20 Clergy Member Relationship Specialty Start Date End Date Tess Fuentes MD [address] [place] [address] PCP - General Family Medicine 09/11/20 Clergy Member Relationship Specialty Start Date End Date Tess Fuentes MD [address] [place] [address] PCP - General Family Medicine 09/11/20 Clergy Member Relationship Specialty Start Date End Date Tess Fuentes MD [address] [place] [address] PCP - General Family Medicine 09/11/20 Clergy Member Relationship Specialty Start Date End Date Tses Fuentes MD [address] [facility] [place] [address] PCP - General Family Medicine 09/11/20 Clergy Member Relationship Specialty Start Date End Date Tess Fuentes MD [address] [place] [address] PCP - General Family Medicine 09/11/20 FOR [...] BE BASED ON THE PRIMARY CLINICAL RECORDS. [employer] [facility]. provides no warranty or guarantee of the accuracy or completeness of information in this document.
--- OUTSIDE RECORDS SUMMARY | 2024-08-29 09:26 | XMS_ITS | CCD ---
Author Organization [facility] [place] Care Team Providers Care Estate Planning Attorney Name Role Phone PHYSICIAN, DEFAULT Unavailable Unavailable [...] Referring Unavailable Tess Fuentes Primary Care Provider [phone] Tess Fuentes MD Primary Care Provider [phone] BARAK HEBERT Referring Unavailable HOTESS Mendez [...] Attending Unavailable Tess Fuentes Primary Care Physician [phone] DR TESS LI Attending Unavailable ALFREDO ., [...] Unavailable Tess Fuentes MD Primary Care Provider [phone] SOLOMON IGNACIO Attending Unavailable NILL, Obey R Attending Unavailable NILL, Obey R Attending Unavailable NILL, Obey R Attending Unavailable NILL, Obey R Attending Unavailable Hoy, Tess Referring Unavailable Allergies Allergy Classification Reported Allergen(s) Allergy Type Date of Onset Reaction(s) Facility (1 source) Sulfonamides (Antibiotic); Translations: [SULFA (SULFONAMIDE ANTIBIOTICS)] Propensity to adverse reactions to drug (disorder) 8 [facility] Repository (19 sources) Penicillins Propensity to adverse reactions to drug 0 [facility] (19 sources) Sulfonamides (Antibiotic) Propensity to adverse reactions to drug 0 [facility] (4 sources) Penicillin; Translations: [penicillin] Drug Allergy Cutaneous eruption (morphologic abnormality) General Surgery [facility] (7 sources) Sulfamethoxazole ; Translations: [sulfamethoxazol e] Drug Allergy Unknown (qualifier value) [facility] (1 source) Sulfonamides (Antibiotic) Drug allergy (disorder) 1 [facility] Repository (2 sources) Penicillins Propensity to adverse reactions to drug 0 [facility] (2 sources) Sulfonamides (Antibiotic) Propensity to adverse reactions to drug 0 [facility] Medications Current Medications Medication Drug Class(es) Dates [...] Daily, # 90 tab(s), Refills(s) 3, Pharmacy: [facility]/pharmacy #[id number] Start Date: 07/18/19 Status: Ordered pregabalin 75 [...] sex, # 30 tab(s), Refills(s) 5, Pharmacy: [id number], 172, cm, 01/12/22 11:29:00 EST, [...] mg docusate sodium 50 mg / sennosides, [facility] 8.6 mg oral tablet (1 source) Start: [...] Discontinued Start: 10-01-2020 [facility] p[facility]atin 40 mg Tab 40 mg = 1 tab(s), Oral, Daily Start Date: 10/01/20 Status: Ordered take 2 tablets by [facility] once daily pravastatin 20 MG tablet [...] ALAS MD Primary Care Physician - Tess Fuenets MD This Is Your Medications List irbesartan [...] for choosing us for your care. Normal [facility] General Surgery Office/Clini c Noteon 08-14-2024 General [...] plan wide excision under local anesthesia at [facility], informed consent obtained. Follow-up No qualifying [...] virus vaccine, inactivated 08/2023 Recorded SARS-CoV-2 (COVID-19) mRNAMUL.ORD![id number] 09/24/2022 Recorded influenza virus vaccine, inactivated 08/31/2022 Recorded SARSCoV2 mRNA(afwnevjoo-tzno-vtstup) vac 03/29/2022 Recorded SARS-CoV-2 (COVID-19) Ad26 vaccine 09/2021 Recorded SARS-CoV-2 (COVID-19) mRNA-1273 vaccine 09/13/2021 Recorded SARS-CoV-2 (COVID-19) Ad26 vaccine 02/2021 Recorded SARS-CoV-2 (COVID-19) mRNA-1273 vaccine 02/04/2021 Recorded SARS-CoV-2 (COVID-19) Ad26 vaccine 01/2021 Recorded SARS-CoV-2 (COVID-19) mRNA-1273 vaccine 01/07/2021 Recorded influenza virus vaccine, inactivated 09/03/2020 Recorded influenza virus vaccine, inactivated (more content not included)... Normal [facility] Comment on above: Result Comment: Elec tronically [...] virus vaccine, inactivated 08/2023 Recorded SARS-CoV-2 (COVID-19) mRNAMUL.ORD![id number] 09/24/2022 Recorded influenza virus vaccine, inactivated 08/31/2022 Recorded SARSCoV2 mRNA(egsutxvti-efvq-kdabhh) vac 03/29/2022 Recorded SARS-CoV-2 (COVID-19) Ad26 vaccine [...] virus vaccine, inactivated 09/09/2016 Recorded Normal [facility] Comment on above: Result Comment: Elec tronically [...] for choosing us for your care. Normal [facility] Pathology Noteon 03-02-2024 Pathology Note [id number]#[id number] Normal [facility] Ambulatory Visit Summaryon 0 02-28-2024 Ambulatory Visit [...] MD Where: General Surgery Nill/Carina Ochoa Normal [facility] General Surgery Office/Clini c Noteon 02-28-2024 General [...] virus vaccine, inactivated 08/2023 Recorded SARS-CoV-2 (COVID-19) mRNAMUL.ORD![id number] 09/24/2022 Recorded influenza virus vaccine, inactivated 08/31/2022 Recorded SARSCoV2 mRNA(zywvkyljk-fyva-kvlelm) vac 03/29/2022 Recorded SARS-CoV-2 (COVID-19) Ad26 vaccine [...] virus vaccine, inactivated 09/09/2016 Recorded Normal [facility] Comment on above: Result Comment: Elec tronically [...] for choosing us for your care. Normal [facility] Physician Referralon 024 Physician Referral [id number]#1.00TIFF Normal [facility] Physician Referralon 024 Physician Referral [id number]#1.00TIFF Normal [facility] INSULINon 01-28-2023 Insulin 15.8 uIU/mL Normal 2.6-24.9 [facility] Comment on above: Performed By: #### I NSULIN #### [facility] [address] [place] [address] Dr. Braulio Fritz CBC AUTO DIFFon 01-27-2023 BASO # 0.0 103/ul Normal 0.0-0.1 [facility] Comment on above: Performed By: #### I NSULIN #### [facility] [address] [place] [address] Dr. Braulio Fritz Basophils/100 WBC (Bld) 0.5 % Normal 0.2-2.0 [facility] Comment on above: Performed By: #### I NSULIN #### [facility] [address] [place] [address] Dr. Braulio Fritz EO # 0.3 103/ul Normal 0.0-0.7 [facility] Comment on above: Performed By: #### I NSULIN #### [facility] [address] [place] [address] Dr. Braulio Fritz Eosinophils/100 WBC (Bld) 3.2 % Normal 0.9-7.0 [facility] Comment on above: Performed By: #### I NSULIN #### [facility] [address] [place] [address] Dr. Braulio Fritz Erythrocyte distribution width (RBC) [Ratio] 14.8 % Normal 11.0-15.0 [facility] Comment on above: Performed By: #### I NSULIN #### [facility] [address] [place] [address] Dr. Braulio Fritz Hematocrit (Bld) [Volume fraction] 48.1 % Normal 42.0-54.0 [facility] Comment on above: Performed By: #### I NSULIN #### [facility] [address] [place] [address] Dr. Braulio Fritz Hemoglobin (Bld) [Mass/Vol] 16.1 g/dL Normal 14.0-18.0 [facility] Comment on above: Performed By: #### I NSULIN #### [facility] [address] [place] [address] Dr. Braulio Fritz IG # 0.05 10e3/ul Critically high 0.00-0.03 [facility] Comment on above: Performed By: #### I NSULIN #### [facility] [address] [place] [address] Dr. Braulio Fritz IG % 0.6 % Critically high 0.0-0.5 [facility] Comment on above: Performed By: #### I NSULIN #### [facility] [address] [place] [address] Dr. Braulio Fritz LYMPH # 2.2 103/ul Normal 1.2-3.8 [facility] Comment on above: Performed By: #### I NSULIN #### [facility] [address] [place] [address] Dr. Braulio Fritz Lymphocytes/100 WBC (Bld) 25.7 % Normal 20.5-60.0 [facility] Comment on above: Performed By: #### I NSULIN #### [facility] [address] [place] [address] Dr. Braulio Fritz MANUAL DIFF REQ NO Normal [facility] Comment on above: Performed By: #### I NSULIN #### [facility] [address] [place] [address] Dr. Braulio Fritz MCH (RBC) [Entitic mass] 31.7 pg Normal 25.9-34.0 [facility] Comment on above: Performed By: #### I NSULIN #### [facility] [address] [place] [address] Dr. Braulio Fritz MCHC (RBC) [Mass/Vol] 33.5 g/dL Normal 29.9-35.2 [facility] Comment on above: Performed By: #### I NSULIN #### [facility] [address] [place] [address] Dr. Braulio Fritz MCV (RBC) [Entitic vol] 94.7 fL Critically high 80.0-94.0 [facility] Comment on above: Performed By: #### I NSULIN #### [facility] [address] [place] [address] Dr. Braulio Fritz MONO # 0.9 103/ul Critically high 0.3-0.8 [facility] Comment on above: Performed By: #### I NSULIN #### [facility] [address] [place] [address] Dr. Braulio Fritz Monocytes/100 WBC (Bld) 10.5 % Normal 1.7-12.0 [facility] Comment on above: Performed By: #### I NSULIN #### [facility] [address] [place] [address] Dr. Braulio Fritz NEUT # 5.1 103/ul Normal 1.4-6.5 [facility] Comment on above: Performed By: #### I NSULIN #### [facility] [address] [place] [address] Dr. Braulio Fritz Neutrophils/100 WBC (Bld) 59.5 % Normal 43.0-75.0 [facility] Comment on above: Performed By: #### I NSULIN #### [facility] [address] [place] [address] Dr. Braulio Fritz Platelet mean volume (Bld) [Entitic vol] 10.5 fL Normal 9.5-13.5 [facility] Comment on above: Performed By: #### I NSULIN #### [facility] [address] [place] [address] Dr. Braulio Fritz PLT 187 103/ul Normal 150-450 [facility] Comment on above: Performed By: #### I NSULIN #### [facility] [address] [address] [address] Braulio Fritz RBC 5.08 106/ul Normal 4.70-6.10 [facility] Comment on above: Performed By: #### I NSULIN #### [facility] [address] [place] [address] Dr. Braulio Fritz WBC 8.5 103/ul Normal 4.0-11.0 [facility] Comment on above: Performed By: #### I NSULIN #### [facility] [address] [place] [address] Dr. Braulio Fritz FREE THYROXINE INDEX T7on FTI 2.39 Normal 1.30-4.50 [facility] Comment on above: Performed By: #### I NSULIN #### [facility] [address] [place] [address] Dr. Braulio Fritz T3U 38.0 % Normal 33.0-40.0 [facility] Comment on above: Performed By: #### I NSULIN #### [facility] [address] [place] [address] Dr. Braulio rFitz T4 [Mass/Vol] 6.30 ug/dL Normal 4.50-12.10 [facility] Comment on above: Performed By: #### I NSULIN #### [facility] [address] [place] [address] Dr. Braulio Fritz GLYCOHEMOGLOBIN A1Con 2022 ADA RECOMMENDATION SEE BELOW Normal [facility] Comment on above: Result Comment: ADA RECOMMENDED LIMIT 4.0 - 6.0 ADA THERAPEUTIC TARGET < 7.0 ACTION SUGGESTED > 7.0 Performed By: #### A 1C #### [facility] [address] [address] [address] Braulio Fritz Glucose [Mass/Vol] 111 mg/dL Normal [facility] Comment on above: Performed By: #### A 1C #### [facility] [address] [place] [address] Dr. Braulio Fritz HbA1c (Bld) [Mass fraction] 5.5 % Normal 4.5-6.2 [facility] Comment on above: Performed By: #### A 1C #### [facility] [address] [place] [address] Dr. Braulio Fritz LIPID PROFILEon 01-27-2023 CHOL-HDL RATIO NORM SEE BELOW Normal [facility] Comment on above: Result Comment: 3.3 - 4.4 LOW RISK 4.4 - 7.1 AVERAGE RISK 7.1 - 11.0 MODERATE RISK >11.0 HIGH RISK Performed By: #### I NSULIN #### [facility] [address] [place] [address] Dr. Braulio Fritz Cholesterol [Mass/Vol] 162 mg/dL Normal <=200 [facility] Comment on above: Performed By: #### I NSULIN #### [facility] [address] [place] [address] Dr. Braulio Fritz Cholesterol in HDL [Mass/Vol] 48 mg/dL Normal 40-60 [facility] Comment on above: Performed By: #### I NSULIN #### [facility] [address] [place] [address] Dr. Braulio Fritz Cholesterol in LDL [Mass/Vol] 91.6 mg/dL Normal [facility] Comment on above: Performed By: #### I NSULIN #### [facility] [address] [place] [address] Dr. Braulio Fritz Cholesterol.total/C holesterol in HDL [Mass ratio] 3.4 {ratio} Normal [facility] Comment on above: Performed By: #### I NSULIN #### [facility] [address] [place] [address] Dr. Braulio Fritz HDL NORMAL > or = 60 mg/dl - LO W CARDIOVASCULAR RISK <40 mg/dl - HIGH CARDIOVASCULAR RISK Normal [facility] Comment on above: Performed By: #### I NSULIN #### [facility] [address] [address] [address] Braulio Fritz LDL CALC NORMAL SEE BELOW Normal [facility] Comment on above: Result Comment: <100 mg/dl OPTIMAL 100 - 129 mg/dl NEAR OR ABOVE OPTIMAL 130 - 159 mg/dl BORDERLINE HIGH 160 - 189 mg/dl HIGH >190 mg/dl VERY HIGH Performed By: #### I NSULIN #### [facility] [address] [place] [address] Dr. Braulio Fritz Triglyceride [Mass/Vol] 112 mg/dL Normal <=150 [facility] Comment on above: Performed By: #### I NSULIN #### [facility] [address] [place] [address] Dr. Braulio Fritz VLDL CALC 22.4 mg/dL Normal [facility] Comment on above: Performed By: #### I NSULIN #### [facility] [address] [place] [address] Dr. Braulio Fritz PROF 14(COMP METB)on 023 Albumin [Mass/Vol] 3.6 g/dL Normal 3.4-5.0 [facility] Comment on above: Performed By: #### I NSULIN #### [facility] [address] [place] [address] Dr. Braulio Fritz Albumin/Globulin [Mass ratio] 1.1 {ratio} Normal [facility] Comment on above: Performed By: #### I NSULIN #### [facility] [address] [place] [address] Dr. Braulio Fritz ALP [Catalytic activity/Vol] 111 U/L Normal 46-116 [facility] Comment on above: Performed By: #### I NSULIN #### [facility] [address] [place] [address] Dr. Braluio Fritz ALT [Catalytic activity/Vol] 31 U/L Normal 16-63 [facility] Comment on above: Performed By: #### I NSULIN #### [facility] [address] [place] [address] Dr. Braulio Fritz Anion gap [Moles/Vol] 12.6 mmol/L Normal [facility] Comment on above: Performed By: #### I NSULIN #### [facility] [address] [place] [address] Dr. Braulio Fritz AST [Catalytic activity/Vol] 23 U/L Normal 15-37 [facility] Comment on above: Performed By: #### I NSULIN #### [facility] [address] [place] [address] Dr. Braulio Fritz Bilirubin [Mass/Vol] 1.7 mg/dL Critically high 0.2-1.0 [facility] Comment on above: Performed By: #### I NSULIN #### [facility] [address] [place] [address] Dr. Braulio Fritz Calcium [Mass/Vol] 9.1 mg/dL Normal 8.5-10.1 [facility] Comment on above: Performed By: #### I NSULIN #### [facility] [address] [place] [address] Dr. Braulio Fritz Chloride [Moles/Vol] 107 mmol/L Normal 98-107 [facility] Comment on above: Performed By: #### I NSULIN #### [facility] [address] [place] [address] Dr. Braulio Fritz CO2 [Moles/Vol] 28.7 mmol/L Normal 21.0-32.0 [facility] Comment on above: Performed By: #### I NSULIN #### [facility] [address] [place] [address] Dr. Braulio Fritz Creatinine [Mass/Vol] 1.41 mg/dL Critically high 0.70-1.30 [facility] Comment on above: Performed By: #### I NSULIN #### [facility] [address] [place] [address] Dr. Braulio Fritz EGFR-AF LAO 60 mL/min/1.73m2 Normal >=60 [facility] Comment on above: Performed By: #### I NSULIN #### [facility] [address] [place] [address] Dr. Braulio Fritz EGFR-NON AF LAO 49 mL/min/1.73m2 Critically low >=60 [facility] Comment on above: Performed By: #### I NSULIN #### [facility] [address] [address] [address] Braulio Fritz Globulin (S) [Mass/Vol] 3.2 g/dL Normal [facility] Comment on above: Performed By: #### I NSULIN #### [facility] [address] [address] [address] Braulio Fritz Glucose [Mass/Vol] 95 mg/dL Normal 74-106 [facility] Comment on above: Performed By: #### I NSULIN #### [facility] [address] [place] [address] Dr. Braulio Fritz Potassium [Moles/Vol] 4.3 mmol/L Normal 3.5-5.1 [facility] Comment on above: Performed By: #### I NSULIN #### [facility] [address] [place] [address] Dr. Braulio Fritz Protein [Mass/Vol] 6.8 g/dL Normal 6.4-8.2 [facility] Comment on above: Performed By: #### I NSULIN #### [facility] [address] [place] [address] Dr. Braulio Fritz Sodium [Moles/Vol] 144 mmol/L Normal 136-145 [facility] Comment on above: Performed By: #### I NSULIN #### [facility] [address] [place] [address] Dr. Braulio Fritz Urea nitrogen [Mass/Vol] 24.0 mg/dL Critically high 7.0-18.0 [facility] Comment on above: Performed By: #### I NSULIN #### [facility] [address] [place] [address] Dr. Braulio Fritz Urea nitrogen/Creatinine [Mass ratio] 17.0 mg/mg Normal [facility] Comment on above: Performed By: #### I NSULIN #### [facility] [address] [place] [address] Dr. Braulio Fritz SED RATE WESTERGRENon 2022 SED RATE 19 mm/hr Normal <=20 [facility] Comment on above: Performed By: #### I NSULIN #### [facility] [address] [place] [address] Dr. Braulio Fritz TSHon 01-27-2023 TSH 0.882 uIU/mL Normal 0.358-3.740 [facility] Comment on above: Performed By: #### I NSULIN #### [facility] [address] [place] [address] Dr. Braulio Fritz URIC ACID SERUMon 01-27-2023 Urate [Mass/Vol] 7.3 mg/dL Critically high 3.5-7.2 [facility] Comment on above: Performed By: #### I NSULIN #### [facility] [address] [place] [address] Dr. Braulio Fritz VITAMIN D 25 OHon 01-27-2023 VIT D 25-OH 44.5 ng/mL Normal [facility] Comment on above: Performed By: #### P ANIYAC, VITAD #### [facility] [address] [place] [address] Dr. Braulio Fritz VIT D RANGES SEE BELOW Normal [facility] Comment on above: Result Comment: <20 ng/mL Vit D deficient 20 - <30 ng/mL Vit D insufficient 30 - 100 ng/mL Vit D sufficient >100 ng/mL Potential Toxicity Performed By: #### P MARGARITA, VITAD #### [facility] [address] [place] [address] Dr. Braulio Fritz T4 LABCORPon 04-16-2022 T4 [Mass/Vol] 6.6 ug/dL Normal 4.5-12.0 [facility] Comment on above: Performed By: #### I NSULIN #### [facility] [address] [place] [address] Dr. Braulio Fritz NM STRESS/REST MULTIon 04-15 NM STRESS/REST MULTI Patient: LÓPEZ CORTÉS Exam Date: 04/15/2022 : 1950 Gender:M Ordering : DR TESS FUENTES . Admission #: [id number] Family : Order #: [id number] CLICK HERE TO VIEW EXAM RADIOLOGY REPORT [...] Stahl M.D. on 04/16/2022 at 13:16 Normal [facility] ECHOCARDIO M/2D COMPLETEon 0 04-13-2022 ECHOCARDIO M/2D COMPLETE Patient: LÓPEZ CORTÉS Exam Date: 04/13/2022 : 1950 Gender:M Ordering : DR TESS FUENTES . Admission #: [id number] Family : Order #: [id number] CLICK HERE TO VIEW EXAM ECHOCARDIOGRAM REPORT [...] Area(A4C): 20.60 cm2 Left Atrium Systolic Volume(A2C): 62228 mm3 Left Atrium Systolic Volume(A4C): 09789 mm3 Mitral Valve MV E to A [...] M.D. on 04/13/2022 at 11:36 Normal [facility] OCC BLD IMMUNO SCREENon 03-22 OCCULT BLOOD Negative Normal NEGATIVE [facility] Comment on above: Performed By: #### O BSCRN #### [facility] [address] [place] [address] Dr. Braulio Fritz INSULINon 04-12-2022 Insulin 18.7 uIU/mL Normal 2.6-24.9 [facility] Comment on above: Performed By: #### I NSULIN #### [facility] [address] [place] [address] Dr. Braulio Fritz BNPon 04-10-2022 Natriuretic peptide B (Bld) [Mass/Vol] 672.0 pg/mL Normal <=900.0 [facility] Comment on above: Performed By: #### A 1C #### [facility] [address] [place] [address] Dr. Braulio Fritz CBC AUTO DIFFon 04-10-2022 BASO # 0.1 103/ul Normal 0.0-0.1 [facility] Comment on above: Performed By: #### I NSULIN #### [facility] [address] [place] [address] Dr. Braulio Fritz Basophils/100 WBC (Bld) 0.8 % Normal 0.2-2.0 [facility] Comment on above: Performed By: #### I NSULIN #### [facility] [address] [place] [address] Dr. Braulio Fritz EO # 0.3 103/ul Normal 0.0-0.7 [facility] Comment on above: Performed By: #### I NSULIN #### [facility] [address] [place] [address] Dr. Braulio Fritz Eosinophils/100 WBC (Bld) 4.0 % Normal 0.9-7.0 [facility] Comment on above: Performed By: #### I NSULIN #### [facility] [address] [place] [address] Dr. Braulio Fritz Erythrocyte distribution width (RBC) [Ratio] 13.7 % Normal 11.0-15.0 [facility] Comment on above: Performed By: #### I NSULIN #### [facility] [address] [place] [address] Dr. Braulio Fritz Hematocrit (Bld) [Volume fraction] 47.7 % Normal 42.0-54.0 [facility] Comment on above: Performed By: #### I NSULIN #### [facility] [address] [place] [address] Dr. Braulio Fritz Hemoglobin (Bld) [Mass/Vol] 15.9 g/dL Normal 14.0-18.0 [facility] Comment on above: Performed By: #### I NSULIN #### [facility] [address] [place] [address] Dr. Braulio Fritz IG # 0.02 10e3/ul Normal 0.00-0.03 [facility] Comment on above: Performed By: #### I NSULIN #### [facility] [address] [place] [address] Dr. Braulio Fritz IG % 0.3 % Normal 0.0-0.5 [facility] Comment on above: Performed By: #### I NSULIN #### [facility] [address] [place] [address] Dr. Braulio Fritz LYMPH # 1.6 103/ul Normal 1.2-3.8 [facility] Comment on above: Performed By: #### I NSULIN #### [facility] [address] [place] [address] Dr. Braulio Fritz Lymphocytes/100 WBC (Bld) 24.6 % Normal 20.5-60.0 [facility] Comment on above: Performed By: #### I NSULIN #### [facility] [address] [place] [address] Dr. Braulio Fritz MANUAL DIFF REQ NO Normal [facility] Comment on above: Performed By: #### I NSULIN #### [facility] [address] [place] [address] Dr. Braulio Fritz MCH (RBC) [Entitic mass] 31.6 pg Normal 25.9-34.0 [facility] Comment on above: Performed By: #### I NSULIN #### [facility] [address] [place] [address] Dr. Braulio Fritz MCHC (RBC) [Mass/Vol] 33.3 g/dL Normal 29.9-35.2 [facility] Comment on above: Performed By: #### I NSULIN #### [facility] [address] [place] [address] Dr. Braulio Fritz MCV (RBC) [Entitic vol] 94.8 fL Critically high 80.0-94.0 [facility] Comment on above: Performed By: #### I NSULIN #### [facility] [address] [place] [address] Dr. Braulio Fritz MONO # 0.7 103/ul Normal 0.3-0.8 [facility] Comment on above: Performed By: #### I NSULIN #### [facility] [address] [place] [address] Dr. Braulio Fritz Monocytes/100 WBC (Bld) 11.2 % Normal 1.7-12.0 [facility] Comment on above: Performed By: #### I NSULIN #### [facility] [address] [place] [address] Dr. Braulio Fritz NEUT # 3.8 103/ul Normal 1.4-6.5 [facility] Comment on above: Performed By: #### I NSULIN #### [facility] [address] [address] [address] Braulio Fritz Neutrophils/100 WBC (Bld) 59.1 % Normal 43.0-75.0 [facility] Comment on above: Performed By: #### I NSULIN #### [facility] [address] [place] [address] Dr. Braulio Fritz Platelet mean volume (Bld) [Entitic vol] 10.0 fL Normal 9.5-13.5 [facility] Comment on above: Performed By: #### I NSULIN #### [facility] [address] [place] [address] Dr. Braulio Fritz PLT 210 103/ul Normal 150-450 [facility] Comment on above: Performed By: #### I NSULIN #### [facility] [address] [place] [address] Dr. Braulio Fritz RBC 5.03 106/ul Normal 4.70-6.10 [facility] Comment on above: Performed By: #### I NSULIN #### [facility] [address] [place] [address] Dr. Braulio Fritz WBC 6.5 103/ul Normal 4.0-11.0 [facility] Comment on above: Performed By: #### I NSULIN #### [facility] [address] [place] [address] Dr. Braulio Fritz FREE THYROXINE INDEX T7on FTI 2.64 Normal 1.30-4.50 [facility] Comment on above: Performed By: #### A 1C #### [facility] [address] [place] [address] Dr. Braulio Fritz T3U 40.0 % Normal 33.0-40.0 [facility] Comment on above: Performed By: #### A 1C #### [facility] [address] [place] [address] Dr. Braulio Fritz T4 [Mass/Vol] 6.60 ug/dL Normal 4.50-12.10 [facility] Comment on above: Performed By: #### A 1C #### [facility] [address] [address] [address] Braulio Fritz GLYCOHEMOGLOBIN A1Con 2021 ADA RECOMMENDATION SEE BELOW Normal [facility] Comment on above: Result Comment: ADA RECOMMENDED LIMIT 4.0 - 6.0 ADA THERAPEUTIC TARGET < 7.0 ACTION SUGGESTED > 7.0 Performed By: #### A 1C #### [facility] [address] [address] [address] Braulio Fritz Glucose [Mass/Vol] 114 mg/dL Normal [facility] Comment on above: Performed By: #### A 1C #### [facility] [address] [place] [address] Dr. Braulio Fritz HbA1c (Bld) [Mass fraction] 5.6 % Normal 4.5-6.2 [facility] Comment on above: Performed By: #### A 1C #### [facility] [address] [place] [address] Dr. Braulio Fritz IRONon 04-10-2022 Iron [Mass/Vol] 105.0 ug/dL Normal 65.0-175.0 [facility] Comment on above: Performed By: #### B 12FOL, VITAD, PSASC, IRON #### [facility] [address] [place] [address] Dr. Braulio Fritz LIPID PROFILEon 04-10-2022 CHOL-HDL RATIO NORM SEE BELOW Normal [facility] Comment on above: Result Comment: 3.3 - 4.4 LOW RISK 4.4 - 7.1 AVERAGE RISK 7.1 - 11.0 MODERATE RISK >11.0 HIGH RISK Performed By: #### A 1C #### [facility] [address] [place] [address] Dr. Braulio Fritz Cholesterol [Mass/Vol] 132 mg/dL Normal <=200 [facility] Comment on above: Performed By: #### A 1C #### [facility] [address] [place] [address] Dr. Braulio Fritz Cholesterol in HDL [Mass/Vol] 38 mg/dL Critically low 40-60 [facility] Comment on above: Performed By: #### A 1C #### [facility] [address] [address] [address] Braulio Fritz Cholesterol in LDL [Mass/Vol] 71.2 mg/dL Normal [facility] Comment on above: Performed By: #### A 1C #### [facility] [address] [address] [address] Braulio Fritz Cholesterol.total/C holesterol in HDL [Mass ratio] 3.5 {ratio} Normal [facility] Comment on above: Performed By: #### A 1C #### [facility] [address] [address] [address] Braulio Fritz HDL NORMAL > or = 60 mg/dl - LO W CARDIOVASCULAR RISK <40 mg/dl - HIGH CARDIOVASCULAR RISK Normal [facility] Comment on above: Performed By: #### A 1C #### [facility] [address] [place] [address] Dr. Braulio Fritz LDL CALC NORMAL SEE BELOW Normal [facility] Comment on above: Result Comment: <100 mg/dl OPTIMAL 100 - 129 mg/dl NEAR OR ABOVE OPTIMAL 130 - 159 mg/dl BORDERLINE HIGH 160 - 189 mg/dl HIGH >190 mg/dl VERY HIGH Performed By: #### A 1C #### [facility] [address] [place] [address] Dr. Braulio Fritz Triglyceride [Mass/Vol] 114 mg/dL Normal <=150 [facility] Comment on above: Performed By: #### A 1C #### [facility] [address] [address] [address] Braulio Fritz VLDL CALC 22.8 mg/dL Normal [facility] Comment on above: Performed By: #### A 1C #### [facility] [address] [place] [address] Dr. Braulio Fritz PROF 14(COMP METB)on 022 Albumin [Mass/Vol] 3.5 g/dL Normal 3.4-5.0 [facility] Comment on above: Performed By: #### A 1C #### [facility] [address] [place] [address] Dr. Braulio Fritz Albumin/Globulin [Mass ratio] 1.0 {ratio} Normal [facility] Comment on above: Performed By: #### A 1C #### [facility] [address] [place] [address] Dr. Braulio Fritz ALP [Catalytic activity/Vol] 115 U/L Normal 46-116 [facility] Comment on above: Performed By: #### A 1C #### [facility] [address] [place] [address] Dr. Braulio Fritz ALT [Catalytic activity/Vol] 29 U/L Normal 16-63 [facility] Comment on above: Performed By: #### A 1C #### [facility] [address] [place] [address] Dr. Braulio Fritz Anion gap [Moles/Vol] 10.9 mmol/L Normal [facility] Comment on above: Performed By: #### A 1C #### [facility] [address] [place] [address] Dr. Braulio Fritz AST [Catalytic activity/Vol] 23 U/L Normal 15-37 [facility] Comment on above: Performed By: #### A 1C #### [facility] [address] [place] [address] Dr. Braulio Fritz Bilirubin [Mass/Vol] 1.3 mg/dL Critically high 0.2-1.0 [facility] Comment on above: Performed By: #### A 1C #### [facility] [address] [place] [address] Dr. Braulio Fritz Calcium [Mass/Vol] 8.8 mg/dL Normal 8.5-10.1 [facility] Comment on above: Performed By: #### A 1C #### [facility] [address] [place] [address] Dr. Braulio Fritz Chloride [Moles/Vol] 106 mmol/L Normal 98-107 [facility] Comment on above: Performed By: #### A 1C #### [facility] [address] [place] [address] Dr. Braulio Fritz CO2 [Moles/Vol] 27.5 mmol/L Normal 21.0-32.0 [facility] Comment on above: Performed By: #### A 1C #### [facility] [address] [address] [address] Braulio Fritz Creatinine [Mass/Vol] 1.68 mg/dL Critically high 0.70-1.30 [facility] Comment on above: Performed By: #### A 1C #### [facility] [address] [address] [address] Braulio Fritz EGFR-AF LAO 49 mL/min/1.73m2 Critically low >=60 [facility] Comment on above: Performed By: #### A 1C #### [facility] [address] [address] [address] Braulio Fritz EGFR-NON AF LAO 40 mL/min/1.73m2 Critically low >=60 [facility] Comment on above: Performed By: #### A 1C #### [facility] [address] [address] [address] Braulio Fritz Globulin (S) [Mass/Vol] 3.6 g/dL Normal [facility] Comment on above: Performed By: #### A 1C #### [facility] [address] [address] [address] Braulio Fritz Glucose [Mass/Vol] 109 mg/dL Critically high 74-106 [facility] Comment on above: Performed By: #### A 1C #### [facility] [address] [address] [address] Braulio Fritz Potassium [Moles/Vol] 4.4 mmol/L Normal 3.5-5.1 [facility] Comment on above: Performed By: #### A 1C #### [facility] [address] [address] [address] Braulio Fritz Protein [Mass/Vol] 7.1 g/dL Normal 6.4-8.2 [facility] Comment on above: Performed By: #### A 1C #### [facility] [address] [address] [address] Braulio Fritz Sodium [Moles/Vol] 140 mmol/L Normal 136-145 [facility] Comment on above: Performed By: #### A 1C #### [facility] [address] [place] [address] Dr. Braulio Fritz Urea nitrogen [Mass/Vol] 24.0 mg/dL Critically high 7.0-18.0 [facility] Comment on above: Performed By: #### A 1C #### [facility] [address] [place] [address] Dr. Braulio Fritz Urea nitrogen/Creatinine [Mass ratio] 14.3 mg/mg Normal [facility] Comment on above: Performed By: #### A 1C #### [facility] [address] [place] [address] Dr. Braulio Fritz TSHon 04-10-2022 TSH 0.740 uIU/mL Normal 0.358-3.740 [facility] Comment on above: Performed By: #### A 1C #### [facility] [address] [place] [address] Dr. Braulio Fritz TSH RANGE SEE BELOW Normal [facility] Comment on above: Result Comment: <0.3 4 UIU/ml HYPERTHYROID 0.34-5.60 UIU/ml EUTHYROID >5.60 UIU/ml HYPOTHYROID Performed By: #### A 1C #### [facility] [address] [place] [address] Dr. Braulio Fritz VIT B12 AND FOLATEon 022 Cobalamin (Vitamin B12) [Mass/Vol] 547.0 pg/mL Normal 193.0-986.0 [facility] Comment on above: Performed By: #### B 12FOL, VITAD, PSASC, IRON #### [facility] [address] [place] [address] Dr. Braulio Fritz FOLATE 17.80 ng/mL Normal 8.60-58.90 [facility] Comment on above: Performed By: #### B 12FOL, VITAD, PSASC, IRON #### [facility] [address] [place] [address] Dr. Braulio Fritz VITAMIN D 25 OHon 04-10-2022 VIT D 25-OH 50.4 ng/mL Normal [facility] Comment on above: Performed By: #### B 12FOL, VITAD, PSASC, IRON #### [facility] [address] [place], [place] [address] Dr. Braulio Fritz VIT D RANGES SEE BELOW Normal [facility] Comment on above: Result Comment: <20 ng/mL Vit D deficient 20 - <30 ng/mL Vit D insufficient 30 - 100 ng/mL Vit D sufficient >100 ng/mL Potential Toxicity Performed By: #### B 12FOL, VITAD, PSASC, IRON #### [facility] [address] [place], [place] [address] Dr. Braulio Fritz XR CHEST 2 Von [...] by: RJ LEON Date: 2022-04-09 12:41 Normal [facility] SMALL JOINT/BURSA INJECTION AND/OR ASPIRATION: L [...] fashion. The patient was prepped with alcohol. [facility] C REACTIVE PROTEINon 022 CRP [Mass/Vol] 11.2 mg/L High 0-10.0 [facility] Comment on above: Performed By: #### C REACT, ESR #### Testing performed at [address] [address] ESRon 11-27-2021 ESR (Bld) [Velocity] 27 mm/h High 0-20 [facility] Comment on above: Performed By: #### C REACT, ESR #### Testing performed at [address] [address] C REACTIVE PROTEINon 021 CRP [Mass/Vol] 6.9 mg/L 0 - 10.0 MG/L [facility] SEDIMENTATION RATE, AUTOMATE Don 10-29-2021 ESR (Bld) [Velocity] 33 mm/h High [facility] Interpretation and review of laboratory results Abnormal [facility] CBC, EDIF, PLATELETon 2019 ABSOLUTE BASOPHIL COUNT 0.1 10*3/uL 0 - 0.2 10*3/uL [facility] Basophils/100 WBC (Bld) 0.5 % 0 - 2 % [facility] Differential cell count method Nom (Bld) AUTO DIFF % [facility] Eosinophils (Bld) [#/Vol] 0.00 10*3/uL 0 - 0.7 10*3/uL [facility] Eosinophils/100 WBC (Bld) 0.1 % 0 - 11 % [facility] Erythrocyte distribution width (RBC) [Ratio] 16.4 % High 11.5 - 14.5 % [facility] Hematocrit (Bld) [Volume fraction] 34.0 % Low 42 - 52 % [facility] Hemoglobin (Bld) [Mass/Vol] 10.9 g/dL Low [facility] Interpretation and review of laboratory results Abnormal [facility] Lymphocytes (Bld) [#/Vol] 0.90 10*3/uL Low 1.2 - 3.4 10*3/uL [facility] Lymphocytes/100 WBC (Bld) 6.9 % Low 20 - 55 % [facility] MCH (RBC) [Entitic mass] 27.8 pg 26 - 35 PG [facility] MCHC (RBC) [Mass/Vol] 32.1 g/dL [facility] MCV (RBC) [Entitic vol] 86.4 fL [facility] Monocytes (Bld) [#/Vol] 0.9 10*3/uL High 0 - 0.7 10*3/uL [facility] Monocytes/100 WBC (Bld) 7.1 % 0 - 10 % [facility] Neutrophils (Bld) [#/Vol] 11.2 10*3/uL High 1.4 - 6.5 10*3/uL [facility] Neutrophils/100 WBC (Bld) 85.4 % High 37 - 75 % [facility] Platelet mean volume (Bld) [Entitic vol] 8.1 fL [facility] Platelets (Bld) [#/Vol] 247 10*3/uL 130 - 400 10*3/uL [facility] RBC (Bld) [#/Vol] 3.93 10*6/uL Low 4 - 6.1 10*6/uL [facility] WBC (Bld) [#/Vol] 13.1 10*3/uL High 3.6 - 11 10*3/uL [facility] REPEAT ABO/RH (D) TYPINGon 1 12-29-2019 ABO and Rh group Nom (Bld ) Positive [facility] LEFT 2 VIEWSon 10-28 IMPRESSION: Status p ost total knee arthroplasty revision with expected postoperative changes. [facility] EXAM: XR KNEE LEFT 2 VIEWS HISTORY: [...] the soft tissues with overlying skin elizabeth. [facility] User, Interfaces - 10/28/2020 3:18 PM EST [...] knee arthroplasty revision with expected postoperative changes. [facility] NUC WBC STUDYon 09-24-2020 IMPRESSION: Hyperemi a to the left knee with no definite evidence for infected prosthesis. [facility] NUCLEAR MEDICINE TOT AL BODY BONE SCAN [...] blood cell uptake in the right knee. [facility] User, Interfaces - 09/24/2020 5:04 PM EST [...] with no definite evidence for infected prosthesis. [facility] NUC 3 PHASE LIMITED BONE SCA Non 09-19-2020 IMPRESSION: Findings concerning for loosening or infection in the medial tibial plateau portion of the left knee prosthesis. No evidence of loosening or infection in the right knee. [facility] NUCLEAR MEDICINE TRIPLE-PHASE BONE SCAN HISTORY: [...] or delayed uptake in the right knee. [facility] User, Interfaces - 09/19/2020 2:47 PM EDT [...] loosening or infection in the right knee. [facility] LARGE JOINT/BURSA INJECTION AND/OR ASPIRATION: L kneeon [...] complications The patient was prepped with Chloraprep. [facility] CNOVon 02-23-2019 CNOV Office Visit (PULMMN ) LÓPEZ CORTÉS ([id number]) 1950 M Date Time Provider Department 02/23/19 [...] local physician and understands to return to [facility] [place] [facility] if there is evidence of functional [...] today's CT scan. Referring Provider: GADIEL RHODES [[id number]] Allergies As of Date: 02/23/2019 Noted Allergy [...] Status:Closed by GADIEL RHODES MD on 02/24/19 [facility] [place] CT CHEST WO IVCONon 02-24-[address] CHEST WO IVCON * * *Final Report* * * DATE OF EXAM: Feb 23 2019 12:40PM [facility] [place] [facility] - CT CHEST WO IVCON / [...] lesion. Upper abdomen: Unchanged. IMPRESSION: STABLE CT. Residency Director: PSCRadha Transcribe Date/Time: Feb 23 2019 4:08P Dictated by : LAURA DAVIDSON MD This examination was interpreted and the report reviewed and electronically signed by: LAURA DAVIDSON MD on Feb 23 2019 4:30PM EST [id number] Normal [facility] PROGRESSon 02-23-2019 Protein mass conc HNO ID: [id number] Author: Gadiel Rhodes Service: ? Author Type: [...] local physician and understands to return to [facility] [place] [facility] if there is evidence of functional decline. No need for additional CT imaging at this time. 2. Lung nodules. 10 mm subpleural nodule incidentally noted on prior chest CT. Has smoking history but discontinued 35 years ago. Nodule now docimented to be stable since 10/2017. No need for additional surveillance. I will see Mr. Cortés back in 6 months. Normal [facility] Protein mass conc HNO ID: [id number] Author: ALEX aKt (Ct) Service: Radiology Author Type: Clinical Lead Generator Type: Progress Notes Filed: 02/23/2019 12:42 PM [...] Kat February 23, 2019 12:42 PM Normal [facility] CNOVon 10-16-2018 CNOV Office Visit (PULMMN ) LÓPEZ CORTÉS ([id number]) 1950 M Date Time Provider Department 10/16/18 [...] Diagnosis:Lung nodules [R91.8] Order(s):CT CHEST WO FERNANDEZON [[id number]] Order #: [id number] FUTURE Prescriptions as of 10/16/2018 Sig: PANTOPRAZOLE [...] by GADIEL RHODES MD on 10/22/18 Normal [facility] PROGRESSon 10-16-2018 Protein mass conc HNO ID: [id number] Author: Gadiel Rhodes Service: (none) Author Type: [...] Mr. Cortés back in 6 months. 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 There are no occupational exposures. There [...] No history of dysuria, frequency or incontinence. SHANK PINNER: NA MUSCULOSKELETAL: Negative for joint pain or [...] MD 04/16/2018 10:48 PM Signed . [facility] [place] Note Mr. 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 Mold: No significant exposure. [...] personally reviewed by me Data Reviewed from [facility] (in addition to that noted in [...] Pre ? ? % ? Date ? [id number] ? Time ?02:22PM ? Height ?169.1 ? [...] management of GERD/heartburn ? Will be seeing turbinated bone grinder (consider nasal probe study/pH study ? Recommend [...] Lisa Hazel MD Internal Medicine PGY-III Pager [phone] Attending Addendum: I have personally interviewed and [...] Rhodes M.D. Chair, Department of Pulmonary Medicine [facility] [place] [facility] Referring Provider: SCOTT PEREZ [[id number]] Allergies As of Date: 03/20/2018 Noted Allergy Reaction SULFA (SULFONAMIDE ANTIBIOTICS) 03/20/2018 17 - Unknown Comments: Reaction as a kid - unsure Date Reviewed: 03/20/2018 Reviewed by: Jemal (Rn) ANOOP Wilks - Fully Assessed Reason for Visit: Consult [502] Primary Visit Diagnosis:ILD (interstitial lung disease) (HCC) [J84.9] Other Visit Diagnosis:Multiple lung nodules [R91.8] Order(s):SPIROMETRY BASELINE ONLY [[id number]] Order #: [id number] FUTURE LUNG DIFFUSION CAPACITY (DLCO) [[id number]] Order #: [id number] FUTURE Prescriptions as of 03/20/2018 Sig: PANTOPRAZOLE [...] March 20, 2018 Scott Perez MD (via [employer]) Re: López Allenney ( 1950) Dear Dr. 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 There are no occupational exposures. There [...] No history of dysuria, frequency or incontinence. SHANK PINNER: NA MUSCULOSKELETAL: Negative for joint pain or [...] M.D. Chair, Department of Pulmonary Medicine [facility] [place] [facility] [place] [facility] Cc: Dr. Tess Fuentes [address] [place] [address] Dr. Francis Giron [address] [facility] [place] [address] Mr. López Cortés [address] [place] [address] Encounter Status:Closed by GADIEL RHODES MD on 04/16/18 Normal [facility] PROGRESSon 03-20-2018 Protein mass conc HNO ID: [id number] Author: Gadiel Rhodes Service: (none) Author Type: Physician Type: Progress Notes Filed: 04/16/2018 10:48 PM Note Text: . [facility] [place] Note Mr. 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 Mold: No significant exposure. [...] personally reviewed by me Data Reviewed from [facility] (in addition to that noted in [...] Pre ? ? % ? Date ? [id number] ? Time ?02:22PM ? Height ?169.1 ? [...] management of GERD/heartburn ? Will be seeing turbinated bone grinder (consider nasal probe study/pH study ? Recommend [...] Lisa Hazel MD Internal Medicine PGY-III Pager [phone] Attending Addendum: I have personally interviewed and [...] Rhodes M.D. 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 There are no occupational exposures. There [...] No history of dysuria, frequency or incontinence. SHANK PINNER: NA MUSCULOSKELETAL: Negative for joint pain or [...] Mr. Cortés back in 6 months. Normal [facility] CT ABDOMEN PELVIS W IV CONTR [...] by:KENDELL Murrelligned by:Christiano Hansen MD10/25/17Final result Normal [facility] CT CHEST W CONTRASTon 2016 CT [...] by:KENDELL Murrelligned by:Christiano Hansen MD10/25/17Final result Normal [facility] CBC with Diffon 10-25-2017 Abs. Basophil 0.00 k/uL Normal 0.0-0.2 [facility] Comment on above: Performed By: #### C DP, CP ####[address] [address] Abs.Neutrophil (Seg) 16.04 k/uL High 1.3-9.1 [facility] Comment on above: Performed By: #### C DP, CP ####[address] [address] Basophils/100 WBC Auto (Bld) 0 % Normal 0-2 [facility] Comment on above: Performed By: #### C DP, CP ####[address] [address] Blood morphology Normal Normal [facility] Comment on above: Result Comment: Perf ormed at [facility] [address] [place] [address] Performed By: #### C DP, CP ####[facility] [facility] [place] [address] Eosinophils 0.00 10*3/uL Normal 0.0-0.4 [facility] Comment on above: Performed By: #### C DP, CP ####[facility] [facility] [place] [address] Eosinophils/100 leukocytes 0 % Normal 0-4 [facility] Comment on above: Performed By: #### C DP, CP ####[facility] [place] [address] Lymphocytes 0.96 10*3/uL Low 1.0-4.8 [facility] Comment on above: Performed By: #### C DP, CP ####[facility] [facility] [place] [address] Lymphocytes/100 leukocytes 5 % Low 24-44 [facility] Comment on above: Performed By: #### C DP, CP ####[facility] [facility] [place] [address] Monocytes 2.10 10*3/uL High 0.1-1.3 [facility] Comment on above: Performed By: #### C DP, CP ####[facility] [facility] [place] [address] Monocytes/100 leukocytes 11 % High 1-7 [facility] Comment on above: Performed By: #### C DP, CP ####[facility] [place] [address] Neutrophil (Seg) 84 % High 36-66 [facility] Comment on above: Performed By: #### C DP, CP ####[facility] [place] [address] Erythrocyte distribution width Auto Ratio (RBC) 14.1 % Normal 11.5-14.9 [facility] Comment on above: Performed By: #### C DP, CP ####[address] [address] [place] [address] Erythrocytes (RBC) 5.37 10*6/uL Normal 4.5-5.9 [facility] Comment on above: Performed By: #### C DP, CP ####[address] [address] [place] [address] Hematocrit (HCT) 50.7 % Normal 41-53 [facility] Comment on above: Performed By: #### C DP, CP ####[facility] [place] [address] Hemoglobin mass conc (Bld) 16.8 g/dL Normal 13.5-17.5 [facility] Comment on above: Performed By: #### C DP, CP ####[facility] [place] [address] MCH 31.2 pg Normal 26-34 [facility] Comment on above: Performed By: #### C DP, CP ####[address] [address] [place] [address] MCHC mass conc (RBC) 33.1 g/dL Normal 31-37 [facility] Comment on above: Performed By: #### C DP, CP ####[address] [address] [place] [address] MCV 94.4 fL Normal 80-100 [facility] Comment on above: Performed By: #### C DP, CP ####[address] [address] [place] [address] Platelet mean volume (PMV) 9.0 fL Normal 6.0-12.0 [facility] Comment on above: Performed By: #### C DP, CP ####[facility] [facility] [place] [address] Platelets 227 10*3/uL Normal 150-450 [facility] Comment on above: Performed By: #### C DP, CP ####[facility] [facility] [place] [address] WBC (Leukocytes) 19.1 10*3/uL High 3.5-11.0 [facility] Comment on above: Performed By: #### C DP, CP ####[facility] [place] [address] Auto Diff Performed NOT REPORTED Normal [facility] Comment on above: Performed By: #### C DP, CP ####[facility] [place] [address] Erythrocyte morphology NOT REPORTED Normal [facility] Comment on above: Performed By: #### C DP, CP ####[facility] [place] [address] Granulocytes/100 WBC (Bld) NOT REPORTED Normal 0.00-0.30 [facility] Comment on above: Performed By: #### C DP, CP ####[facility] [facility] [place] [address] Immature granulocytes #/vol (Bld) NOT REPORTED Normal 0 [facility] Comment on above: Performed By: #### C DP, CP ####[facility] [place] [address] Platelets NOT REPORTED Normal [facility] Comment on above: Performed By: #### C DP, CP ####[address] [address] WBC Morphology NOT REPORTED Normal [facility] Comment on above: Performed By: #### C DP, CP ####[facility] [facility] [place] [address] Comp Metabolic Profon 2016 (cont.) Normal [facility] Comment on above: Result Comment: Aver age GFR for 60-69 years old: 85 mL/min/1.73sq mChronic Kidney Disease: <60 mL/min/1.73sq mKidney failure: <15 mL/min/1.73sq meGFR calculated using average adult body mass. Additional eGFR calculator available at:http://www.Touristlink/multiple_crcl_2012.htmPerformed at [facility] [address] [place] [address] Performed By: #### C DP, CP ####[facility] [place] [address] Alanine aminotransferase (ALT) 35 U/L Normal 5-41 [facility] Comment on above: Performed By: #### C DP, CP ####[facility] [place] [address] Albumin 4.4 g/dL Normal 3.5-5.2 [facility] Comment on above: Performed By: #### C DP, CP ####[facility] [facility] [place] [address] Alkaline Phos 128 U/L Normal 40-129 [facility] Comment on above: Performed By: #### C DP, CP ####[facility] [place] [address] Anion gap 14 mmol/L Normal 9-17 [facility] Comment on above: Performed By: #### C DP, CP ####[address] [place] [address] Aspartate aminotransferase (AST) 50 U/L High <40 [facility] Comment on above: Performed By: #### C DP, CP ####[facility] [place] [address].[place] [address] Bilirubin Ql (U) 1.12 mg/dL Normal 0.3-1.2 [facility] Comment on above: Performed By: #### C DP, CP ####[address] [place] [address] Calcium 9.2 mg/dL Normal 8.6-10.4 [facility] Comment on above: Performed By: #### C DP, CP ####[address] [place] [address] Chloride 107 mmol/L Normal 98-107 [facility] Comment on above: Performed By: #### C DP, CP ####[address] [address] CO2 23 mmol/L Normal 20-31 [facility] Comment on above: Performed By: #### C DP, CP ####[address] [place] [address] Creatinine 1.30 mg/dL High 0.70-1.20 [facility] Comment on above: Performed By: #### C DP, CP ####[address] [place] [address] eGFR (non-black) 55 mL/min/{1.73_m2} Low >60 [facility] Comment on above: Performed By: #### C DP, CP ####[address] [address] eGFR (non-black) mL/min/{1.73_m2} Normal >60 [facility] Comment on above: Performed By: #### C DP, CP ####[address] [place] [address] Glucose mass conc 111 mg/dL High 70-99 [facility] Comment on above: Performed By: #### C DP, CP ####[facility] [place] [address] Potassium molar conc 4.3 mmol/L Normal 3.7-5.3 [facility] Comment on above: Performed By: #### C DP, CP ####[facility] [facility] [place] [address] Protein 7.3 g/dL Normal 6.4-8.3 [facility] Comment on above: Performed By: #### C DP, CP ####[facility] [place] [address].[place] [address] Sodium 144 mmol/L Normal 135-144 [facility] Comment on above: Performed By: #### C DP, CP ####[facility] [place] [address] [place] [address] Urea nitrogen 24 mg/dL High 8-23 [facility] Comment on above: Performed By: #### C DP, CP ####[facility] [place] [address] [place] [address] Albumin/Globulin Ratio NOT REPORTED Normal 1.0-2.5 [facility] Comment on above: Performed By: #### C DP, CP ####[facility] [place] [address] BUN/CRE Ratio NOT REPORTED Normal 9-20 [facility] Comment on above: Performed By: #### C DP, CP ####[facility] [place] [address] [place] [address] Staging: NOT REPORTED Normal [facility] Comment on above: Performed By: #### C DP, CP ####[facility] [place] [address] Vital Signs Date Time Vital Sign Value Performing Clinician Facility 08-14-2024 14:41-0400 Diastolic blood pressure 80 mm[Hg] Obey NILL [facility] 08-14-2024 14:41-0400 Heart rate 68 /min Obey NILL [facility] 08-14-2024 14:41-0400 Respiratory rate 16 /min Obey NILL [facility] 08-14-2024 14:41-0400 Systolic blood pressure 118 mm[Hg] Obey NILL [facility] 01-31-2024 08:42-0400 Blood Pressure Location Obey NILL [facility] 01-31-2024 08:42-0400 Diastolic blood pressure 82 mm[Hg] Obey NILL [facility] 01-31-2024 08:42-0400 Heart rate 83 /min Obey NILL [facility] 01-31-2024 08:42-0400 Respiratory rate 16 /min Obey NILL [facility] 01-31-2024 08:42-0400 Systolic blood pressure 120 mm[Hg] Obey NILL [facility] 11-23-2023 08:25-0500 Body height 172.7 cm Bhavana Addison [employer] Work Phone: [employer] [facility] 11-23-2023 08:25-0500 Body mass index (BMI) [Ratio] 34.21 kg/m2 Bhavana Addison [employer] Work Phone: [facility] 11-23-2023 08:25-0500 Body weight 102.06 kg Bhavana Addison APRN-PHYSIOTHERAPY AIDE Work Phone: [facility] 05-16-2023 09:32-0400 Blood Pressure Location Darwin RICHMOND [facility] 05-16-2023 09:32-0400 Diastolic blood pressure 75 mm[Hg] Darwin RICHMOND [facility] 05-16-2023 09:32-0400 Heart rate 75 /min Darwin RICHMOND [facility] 05-16-2023 09:32-0400 Respiratory rate 16 /min Darwin RICHMOND [facility] 05-16-2023 09:32-0400 Systolic blood pressure 129 mm[Hg] Darwin RICHMOND [facility] 06-16-2022 10:13-0400 Body height 172.7 cm Barak Hebert MD Work Phone: [facility] 06-16-2022 10:13-0400 Body mass index (BMI) [Ratio] 35.28 kg/m2 Barak Hebert MD Work Phone: [facility] 06-16-2022 10:13-0400 Body weight 105.23 kg Barak Hebert MD Work Phone: [facility] 05-26-2022 07:57-0400 Body height 172.7 cm Gadiel Floyd MD Work Phone: [facility] 05-26-2022 07:57-0400 Body mass index (BMI) [Ratio] 35.28 kg/m2 Gadiel Floyd MD Work Phone: [facility] 05-26-2022 07:57-0400 Body temperature 97.7 [degF] Gadiel Floyd MD Work Phone: [facility] 05-26-2022 07:57-0400 Body weight 105.23 kg Gadiel Floyd MD Work Phone: [facility] 02-17-2022 12:58-0400 Body height 172.7 cm Gadiel Floyd MD Work Phone: [facility] 02-17-2022 12:58-0400 Body mass index (BMI) [Ratio] 36.81 kg/m2 Gadiel Floyd MD Work Phone: [facility] 02-17-2022 12:58-0400 Body temperature 98.2 [degF] Gadiel Floyd MD Work Phone: [facility] 02-17-2022 12:58-0400 Body weight 109.8 kg Gadiel Floyd MD Work Phone: [facility] 10-29-2021 11:09-0500 Body height 172.7 cm Bhavana Addison PATIENT [employer] MGR-PHYSIOTHERAPY AIDE Work Phone: [facility] 10-29-2021 11:09-0500 Body mass index (BMI) [Ratio] 36.49 kg/m2 Bhavana Addison PATIENT [employer] MGR-PHYSIOTHERAPY AIDE Work Phone: [facility] 10-29-2021 11:09-0500 Body temperature 97.2 [degF] Bhavanaroger Addison PATIENT [employer] MGR-PHYSIOTHERAPY AIDE Work Phone: [facility] 10-29-2021 11:09-0500 Body weight 108.86 kg Bhavana Nila PATIENT [employer] MGR-PHYSIOTHERAPY AIDE Work Phone: [facility] 11-19-2020 11:08-0500 BMI (Body Mass Index) 34.21 kg/m2 [facility] 11-19-2020 11:08-0500 Body Temperature 97.59 [degF] [facility] 11-19-2020 11:08-0500 Body weight 102.06 kg [facility] 11-19-2020 11:08-0500 Height 172.7 cm [facility] 10-29-2020 15:11-0500 BP Diastolic 72 mm[Hg] [facility] 10-29-2020 15:11-0500 BP Systolic 148 mm[Hg] [facility] 10-29-2020 15:11-0500 Pulse (Heart Rate) 74 /min [facility] 10-29-2020 15:11-0500 Pulse Oximetry 100 % [facility] 10-29-2020 15:11-0500 Respiratory Rate 16 /min [facility] 10-29-2020 08:00-0500 Body Temperature 97.39 [degF] [facility] 10-28-2020 15:15-0500 BMI (Body Mass Index) 32.23 kg/m2 [facility] 10-28-2020 15:15-0500 Body weight 96.16 kg [facility] 10-28-2020 15:15-0500 Height 172.7 cm [facility] 09-11-2020 13:55-0400 BMI (Body Mass Index) 31.96 kg/m2 [facility] 09-11-2020 13:55-0400 Body Temperature 97.11 [degF] [facility] 09-11-2020 13:55-0400 Body weight 95.35 kg [facility] 09-11-2020 13:55-0400 Height 172.7 cm [facility] Encounters Encounter Date Encounter Type Care Provider Facility Start: 08-14-2024 End: 08-14-2024 ambulatory Obey ALAS Facility: [facility] Start: 08-14-2024 End: 08-14-2024 Patient encounter procedure Obey ALAS [facility] Start: 06-05-2024 End: 06-05-2024 ambulatory SOLOMON IGNACIO Not Available Start: 03-06-2024 End: 03-06-2024 ambulatory Obey ALAS Facility: [facility] Start: 03-06-2024 End: 03-06-2024 Patient encounter procedure Obey ALAS [facility] [place] Start: 02-28-2024 End: 02-28-2024 ambulatory Obey R NILL Facility: [facility] Start: 02-28-2024 End: 02-28-2024 Patient encounter procedure Obey R NILL [facility] N[facility] [place] Start: 01-31-2024 End: 01-31-2024 ambulatory Obey R NILL Facility: [facility] Start: 01-31-2024 End: 01-31-2024 Patient encounter procedure Obey R NILL [facility] [place] Start: 01-20-2024 ambulatory Obey VALLESL Facility:[facility] Start: 11-23-2023 End: 11-23-2023 Office outpatient visit 15 minutes Bhavana FLORES Work Phone: [facility] Comment on above: Hx of total knee art hroplasty, left (Primary Dx) Start: 11-23-2023 End: 11-23-2023 Subsequent hospital visit by physician Bhavana FLORES Work Phone: [facility] Start: 05-16-2023 End: 05-16-2023 Patient encounter procedure Darwin RICHMOND [facility] Start: 01-27-2023 End: 01-28-[address] TESS FUENTES . 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 Facility: Start: 02-17-2022 ambulatory [facility] Start: 02-17-2022 End: 02-17-2022 Office outpatient new 30 minutes Gadiel Floyd MD Work Phone: [facility] Comment on above: Bilateral thumb pain (Primary Dx); Primary osteoarthritis of first carpometacarpal joint of left hand Start: 02-17-2022 End: 02-17-2022 Subsequent hospital visit by physician Gadiel Floyd MD Work Phone: [facility] Start: 12-17-2021 ambulatory BARAK HEBERT [facility] Start: 12-17-2021 End: 12-17-2021 Office outpatient visit 15 minutes Barak Hebert MD Work Phone: [facility] Comment on above: Bilateral thumb pain (Primary Dx); Left knee pain, unspecified chronicity Start: 11-27-2021 ambulatory [facility] Start: 10-29-2021 End: 10-29-2021 Postop follow up visit related to original px Barak Hebert MD Work Phone: [facility] Comment on above: Hx of total knee art hroplasty, left (Primary Dx) Start: 10-29-2021 End: 10-29-2021 Subsequent hospital visit by physician Bhavana FLORES Work Phone: [facility] Start: 02-26-2021 End: 02-26-2021 Subsequent hospital visit by physician Barak Hebert Work Phone: [facility] Start: 11-19-2020 End: 11-19-2020 Postop follow up visit related to original px Kaila Richmond Work Phone: [facility] Comment on above: Hx of total knee art hroplasty, left (Primary Dx); Postoperative pain of knee Start: 11-19-2020 End: 11-19-2020 Subsequent hospital visit by physician Kaila Richmond Work Phone: [facility] Start: 10-28-2020 End: 10-29-2020 Evaluation and management of inpatient Barak Hebert Work Phone: [facility] ICU Comment on above: Mechanical loosening of internal left knee prosthetic joint Start: 09-24-2020 End: 09-24-2020 Subsequent hospital visit by physician Barak Hebert Work Phone: [facility] Comment on above: Arrived Start: 09-23-2020 End: 09-23-2020 Subsequent hospital visit by physician Barak Hebert Work Phone: [facility] Comment on above: Arrived Start: 09-19-2020 End: 09-19-2020 Subsequent hospital visit by physician Barak Hebert Work Phone: [facility] Comment on above: Arrived Start: 09-11-2020 End: 09-11-2020 Subsequent hospital visit by physician Barak Hebert Work Phone: [facility] Start: 09-11-2020 End: 09-11-2020 Office outpatient new 45 minutes Barak Hebert Work Phone: [facility] Comment on above: Left knee pain, unsp ecified chronicity (Primary Dx); Pain in prosthetic joint, initial encounter Start: 02-23-2019 End: 02-26-2019 Patient encounter procedure GADIEL RHODES [facility] Start: 10-16-2018 End: 10-23-2018 Patient encounter procedure GADIEL RHODES [facility] Start: 03-20-2018 End: 04-19-2018 Patient encounter procedure GADIEL RHODES [facility] Start: 11-23-2017 End: 11-24-2017 Ambulatory DEFAULT PHYSICIAN Facility:[facility] Start: 10-25-2017 End: 10-26-2017 Emergency department patient visit ROBERTO GRUEBR [facility] Procedures Date Procedure Procedure Detail Performing Clinician Start: 01-27-[address] SHIRLEY FUENTES . Comment on above: Performed By: #### P SASC, VITAD #### [facility] [address] [address] [address] Braulio Fritz Start: 04-10-[address] SHIRLEY FUENTES . Comment on above: Performed By: #### B 12FOL, VITAD, PSASC, IRON #### [facility] [address] [address] [address] Braulio Fritz Start: 02-17-2022 Arthrocentesis aspir &/inj small jt/bursa w/o us Irene Parker Start: 10-29-2020 Complete blood count with white cell differential, automated [employer] Work Phone: Start: 10-28-2020 X-ray of left knee [employer] Phone: Start: 10-28-2020 End: 10-28-2020 Cul bact roberto aerobic isol xcpt ur blood/stool [facility] Phone: Start: 10-28-2020 End: 10-28-2020 Culture bacterial any source anaerobic iso&id [facility] Phone: Start: 10-28-2020 End: 10-28-2020 Fungus identified in Unspecified specimen by Culture [facility] Phone: Start: 10-28-2020 End: 10-28-2020 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 specific culture [facility] Room Phone: Start: 10-28-2020 Bacteria identified in Body fluid by Culture [facility] Room Phone: Start: 10-28-2020 End: 10-28-2020 Revj tot [...] 12-LEAD [facility] Start: 11-21-2015 Colonoscopy Obey SELBY Arthroplasty of knee Darwin RICHMOND Arthroplasty of knee Obey EVETTE Repair of meniscus Obey WOODS Revision of knee arthroplasty Obey EVETTE Plan of Treatment Date Care Activity Detail Author Start: 07-22-2023 Influenza vaccination INFLUENZA VACC INE (#1) [facility] Start: 08-25-2022 End: 08-25-2022 Patient encounter procedure 08/25/2022 Office Visit Orthopaedics Gadiel Floyd MD [address] [place] [address] [facility] Start: 07-22-2022 Influenza vaccination INFLUENZA VACC INE (#1) [facility] Start: 06-16-2022 End: 06-16-2022 Patient encounter procedure 06/16/2022 Office Visit Orthopaedics Barak Hebert MD [address] [place] [address] [facility] Start: 05-26-2022 End: 05-26-2022 Patient encounter procedure 05/26/2022 Office Visit Orthopaedics Gadiel Floyd MD [address] [place] [address] [facility] Start: 04-19-2022 COVID-19 VACCINE (2 - Pfizer series) COVID-19 VACCINE (2 - Pfizer series) [facility] Start: 02-17-2022 End: 02-11-2023 XR Thumb - left Views [facility] Work Phone: Comment on above: 1 Occurrences starti ng 02/17/2022 until 02/17/2022 Expected: 02/17/2022 , Expires: 02/11/2023 Start: 02-17-2022 End: 02-11-2023 XR Thumb - right Views [facility] Work Phone: Comment on above: 1 Occurrences starti ng 02/17/2022 until 02/17/2022 Expected: 02/17/2022 , Expires: 02/11/2023 Start: 02-17-2022 End: 02-17-2022 Patient encounter procedure 02/17/2022 Office Visit Orthopaedics Gadiel Floyd MD [address] [place] [address] [facility] Start: 10-29-2021 End: 10-29-2021 Office Visit 10/29/2021 Office Visit Orthopaedics Bhavana Addison, PATIENT [employer] MGR-PHYSIOTHERAPY AIDE [address] [place] [address], [place] [address] [phone] [facility] Start: 07-22-2021 Influenza vaccination [facility] Start: 02-19-2021 End: 02-19-2021 Office Visit 02/19/2021 Office Visit Orthopaedics Barak Hebert MD [address] [facility] [place] [address] [phone] [facility] Start: 11-19-2020 End: 11-19-2020 Office Visit 11/19/2020 Office Visit Orthopaedics Kaila Richmond PA-C [address] [place] [address] [phone] [facility] Start: 10-28-2020 End: 10-28-2020 Hospital Encounter [facility] [facility] Periop Comment on above: Mechanical loosening of internal left knee prosthetic joint, initial encounter REVISION ARTHROPLAST Y KNEE left Start: 10-02-2020 End: 10-02-2020 Pre-Operative Nurse Assessment 10/02/2020 Pre-Operative Nurse Assessment Internal Medicine [facility] Pre Admission Start: 09-24-2020 Hospital Encounter 09/24/2020 Hospital Encounter Nuclear Medicine Barak Hebert MD [address] [place] [address] [phone] [facility] Nuclear Medicine Start: 09-23-2020 End: 09-23-2020 Appointment 09/23/2020 Appointment Nuclear Medicine Barak Hebert MD [address] [place] [address] [phone] [facility] Nuclear Medicine Start: 09-19-2020 End: 09-19-2020 Hospital Encounter [facility] Nuclea r Medicine Start: 09-11-2020 End: 09-11-2021 Nuclear medicine imaging procedure NUC BONE MARROW LIMITED AREA Imaging Routine Pain in prosthetic joint, initial encounter Expected: 09/11/2020, Expires: 09/11/2021 [facility] Comment on above: Expected: 09/11/2020 , Expires: 09/11/2021 Start: 09-11-2020 End: 09-11-2021 Nuclear medicine procedure NUC WBC STUDY Imaging Routine Pain in prosthetic joint, initial encounter Expected: 09/11/2020, Expires: 09[facility]11[facility]21 [facility] Comment on above: Expected: 09/11/2020 , Expires: 09/11/2021 Start: 09-11-2020 End: 09-11-2021 Radioisotope scan of bone NUC BONE SCAN WHOLE BODY Imaging Routine Pain in prosthetic joint, initial encounter Expected: 09/11/2020, Expires: 09/11/2021 [email or web address] [facility] Comment on above: Expected: 09/11/2020 , Expires: 09/11/2021 Start: 08-21-2018 Pneumococcal vaccination PNEUM OCOCCAL VACCINE SERIES (2 - PCV) [facility] Start: 01-25-2016 Abdominal aortic aneurysm screening ABDOMINAL AORTIC ANEURYSM HIGH RISK SCREEN [facility] Start: 01-25-2016 Pneumococcal vaccination [facility] Start: 2001 Colonoscopy COLORECTAL CAN CER SCREENING DISCUSSION [facility] Start: 2001 Prostate specific antigen measurement PROSTATE CANCER SCREENING DISCUSSION [facility] Start: 2001 Zoster vaccine hzv l preet for subcutaneous use ZOSTER (SHINGLES) VACCINE (1 of 2) [facility] Start: 01-25-1996 Colonoscopy COLORECTAL CAN CER SCREENING DISCUSSION [facility] Start: 01-25-1996 Screening for malign ant neoplasm of colon COLORECTAL CANCER SCREENING DISCUSSION [facility] Start: 1991 Fasting lipid profile LIPID SCREENIN G [facility] Start: 1991 Lipid panel LIPID SCREENING [facility] Start: 1970 Third diphtheria, tetanus and acellular pertussis (DTaP) vaccination TDAP (ADULT) [facility] Start: 1969 Tetanus vaccination TETANUS [facility] Start: 1967 COVID-19 VACCINE (1) COVID-19 VACCIN E (1) [facility] Start: 1963 COVID-19 VACCINE (1) COVID-19 VACCIN E (1) [facility] Start: 01-25-1956 COVID-19 VACCINE (1) COVID-19 VACCIN E (1) [facility] Start: 1950 Hepatitis C antibody , confirmatory test HEPATITIS C VIRUS SCREENING [facility] Start: 1950 Hepatitis C screening HEPATITI S C VIRUS SCREENING [facility] Start: 1950 Tetanus vaccination TETANUS [facility] ANAEROBE CULTURE [facility] Comment on above: Release Upon Orderin g for 1 Occurrences starting 10/28/2020 Bacteria identified Cx Nom (Body fld) BODY FLUID CULTURE AND DIRECT SMEAR Microbiology Routine 10/28/2020 12:35 PM EST [facility] Bacteria identified Cx Nom (Unsp spec) BACTERIAL CULTURE AND DIRECT SMEAR, LESION, TISSUE, DEVICE Microbiology Routine Mechanical loosening of internal left knee prosthetic joint, initial encounter Release Upon Ordering for 1 Occurrences starting 10/28/2020 [facility] Comment on above: Release Upon Orderin g for 1 Occurrences starting 10/28/2020 Fungus identified Cx Nom (Unsp spec) [facility] Comment on above: Release Upon Orderin g for 1 Occurrences starting 10/28/2020 Mycobacterium sp identified Org specific cx Nom (Tiss) ACID FAST CULTURE, TISSUE Microbiology Routine Mechanical loosening of internal left knee prosthetic joint, initial encounter Release Upon Ordering for 1 Occurrences starting 10/28/2020 [facility] Comment on above: Release Upon Orderin g for 1 Occurrences starting 10/28/2020 Mycobacterium sp identified Org specific cx Nom (Unsp spec) [facility] End: 09-23-2020 Nuclear medicine imaging procedure NUC BONE MARROW LIMITED AREA Imaging Routine Pain in prosthetic joint, initial encounter 1 Occurrences starting 09/23/2020 until 09/23/2020 [facility] Comment on above: 1 Occurrences starti ng 09/23/2020 until 09/23/2020 Nuclear medicine marycarmen ging procedure NUC BONE MARROW LIMITED AREA Imaging Routine Pain in prosthetic joint, initial encounter 09/23/2020 12:09 PM [facility] End: 09-23-2020 Nuclear medicine procedure NUC WBC STUDY Imaging Routine Pain in prosthetic joint, initial encounter 1 Occurrences starting 09/23/2020 until 09/23/2020 [facility] Comment on above: 1 Occurrences starti ng 09/23/2020 until 09/23/2020 Nuclear medicine procedure NUC WBC STUDY Imaging Routine Pain in prosthetic joint, initial encounter 09/23/2020 6:01 AM [facility] Radiography for bone length studies [facility] TISSUE CULTURE [facility] X-ray of left knee [facility] X-ray of left knee XR KNEE LEFT 3 VIEWS Imaging Routine Hx of total knee arthroplasty, left 10/29/2021 10:55 AM [facility] XR Knee - left 3 Views XR KNEE L EFT 3 VIEWS Imaging Routine History of revision of total replacement of left knee joint [facility] - [facility] 3 Views XR KNEE L EFT 3 VIEWS Imaging Routine Hx of total knee arthroplasty, left 11/23/2023 8:19 AM [facility] Immunizations Immunization Date Immunization Notes Care Provider Fa sam 08-21-2023 influenza virus vacc ine, unspecified formulation Obey ALAS [facility] 09-24-2022 SARS-CoV-2 (COVID-19 ) [id number] Darwin RICHMOND [facility] 08-31-2022 influenza virus vacc ine, unspecified formulation Darwin RICHMOND [facility] 03-29-2022 SARS-CoV-2 mRNA (rkovmrwueaf-brge-tqfoem e) vaccine Darwin RICHMOND [facility] 09-21-2021 SARS-CoV-2 (COVID-19 ) Ad26 vaccine, recombinant Darwin RICHMOND [facility] 09-13-2021 SARS-CoV-2 (COVID-19 ) mRNA-1273 vaccine Darwin RICHMOND [facility] 02-19-2021 SARS-CoV-2 (COVID-19 ) Ad26 vaccine, recombinant Darwin RICHMOND [facility] 02-04-2021 SARS-CoV-2 (COVID-19 ) mRNA-1273 vaccine Darwin RICHMOND [facility] 01-19-2021 SARS-CoV-2 (COVID-19 ) Ad26 vaccine, recombinant Darwin RICHMOND [facility] 01-07-2021 SARS-CoV-2 (COVID-19 ) mRNA-1273 vaccine Darwin RICHMOND [facility] 09-03-2020 influenza virus vacc ine, unspecified formulation Bhavana Addison APRN-PHYSIOTHERAPY AIDE Work Phone: [facility] 09-04-2019 influenza virus vacc ine, unspecified formulation Darwin RICHMOND [facility] 08-22-2018 influenza virus vacc ine, unspecified formulation Darwin RICHMOND [facility] 08-24-2017 influenza virus vacc ine, unspecified formulation Darwin RICHMOND [facility] 08-21-2017 pneumococcal polysaccharide vaccine, 23 valent Darwin RICHMOND [facility] 08-01-2017 pneumococcal polysaccharide vaccine, 23 valent Darwin RICHMOND [facility] 06-27-2017 pneumococcal polysaccharide vaccine, 23 valent Darwin RICHMOND [facility] 09-09-2016 influenza virus vacc ine, unspecified formulation Darwin RICHMOND [facility] Payers Date Payer Category Payer Unknown [id number] 2020 Unknown 2020 Unknown [id number] 2017 Unknown [id number] 2016 Medicare [id number] 2016 Medicare MEDICARE MEDICAR E A AND B [id number] 2016-Present [address] [place] [address] [id number] 1959 Medicare [id number] 1959 Private Health Insurance CLI [id number] 1959 Unknown [id number] 1951 Unknown [id number] 2.16.840.1.672881.3.579.2.9 83 1951 Unknown [id number] 2.16.840.1.039077.3.579.2.9 83 1951 Unknown [id number] 2.16.840.1.016263.3.579.2.9 83 1951 Unknown [id number] 2.16.840.1.528482.3.579.2.9 83 1951 Unknown [id number] 2.16.840.1.869426.3.579.2.9 83 1951 Unknown [id number] 2.16.840.1.709083.3.579.2.9 83 1951 Unknown [id number] 2.16.840.1.737530.3.579.2.9 83 1951 Unknown [id number] 2.16.840.1.404146.3.579.2.9 83 1951 Unknown [id number] 2.16.840.1.399181.3.579.2.5 93 1951 Unknown [id number] 2.16.840.1.716283.3.579.2.5 93 1951 Unknown [id number] 2.16840.1.430815.3.579.2.5 93 1951 Unknown [id number] 2.16.840.1.805746.3.579.2.5 93 1951 Unknown [id number] 2.16.840.1.957882.3.579.2.5 93 1951 Unknown [id number] 2.16.840.1.170880.3.579.2.1 259 1951 Unknown [id number] 2.16.840.1.213556.3.579.2.7 27 1951 Unknown [id number] 2.16.840.1.428324.3.579.2.7 27 1951 Unknown [id number] 2.16.840.1.864661.3.579.2.7 27 1951 Unknown [id number] 2.16.840.1.331505.3.579.2.7 27 Social History Date Type Detail Facility Start: 09-11-2020 End: 08-14-2024 Tobacco smoking status NHIS Former smoker [facility] History of tobacco use Cigarette Smoker [facility] Start: 09-11-2020 End: 11-23-2023 Tobacco use and exposure Never used [facility] Start: 09-11-2020 End: 11-23-2023 Alcohol intake Ex-drinker (finding) [facility] Start: 1950 Sex Assigned At Not on file A [facility] Start: 10-02-2020 End: 11-23-2023 Tobacco Comment quit 40 yrs ago [facility] Exposure to SARS-CoV -2 (event) Not sure [facility] Start: 10-01-2020 Tobacco smoking status Never s moked tobacco (finding) [facility] Start: 11-23-2023 Sex Assigned At Male F [facility] History of tobacco use Current smoker [facility] Start: 11-23-2023 History of Social function [facility] Tobacco smoking status Never [facility] General [facility] Medical Equipment Procedure Code Equipment Code Equipment [...] Assessment Result Facility 08-14-2024 Functional Status N/A [facility] General Surgery [place] 01-31-2024 Functional Status N/A [facility] General Surgery [place] 05-16-2023 Functional Status N/A [facility] Clinical Notes 10-29-2021 to 01-31-2024 Maria G [...] virus vaccine, inactivated 08/2023 Recorded SARS-CoV-2 (COVID-19) mRNAMUL.[id number] 09/24/2022 Recorded influenza virus vaccine, inactivated 08/31/2022 Recorded SARSCoV2 mRNA(yhghsuyer-dxtz-neggan) vac 03/29/2022 Recorded SARS-CoV-2 (COVID-19) Ad26 vaccine 09/2021 Recorded SARS-CoV-2 (COVID-19) (more content not included)... [facility] Comment on above: Result Comment: Elec tronically Signed By: EVETTE RILEY, Obey Varela\Date and Time Signed: 01/31/24 09:05 EDT 11-23-2023 History of Present illness Narrative Ortho Nurse - Established Patient Intake Room#: 5 Date: 11/23/2023 8:26 AM Patient: López Cortés MR#: [id number] : 1950 Age: 73 y.o. 3yr L [...] antibiotics. López is an established patient of [facility]. He is here today for followup. He [...] his exercise program will resolve his symptoms. (DOC:[id number]) I have reviewed the findings of the clinical ground crewman mission support and agree with their assessment. Bhavana Addison APRN-PHYSIOTHERAPY AIDE Ortho Nurse - Established Patient Intake Room#: 5 Date: 11/23/2023 8:26 AM Patient: López Cortés MR#: [id number] : 1950 Age: 73 y.o. 3yr L [...] and sulfa antibiotics. documented in this encounter [facility] 05-16-2023 Hospital Discharge instructions Patient Education 05/16/2023 [...] Follow these instructions at home: Medicines Take kwwu-ysw-xygyiku and prescription medicines only as told by [...] provider. Document Revised: 02/03/2022 Document Reviewed: 02/03/2022 [employer] Patient Education 2022 fluid Operations. Follow Up Care 01/26/2022 15:47:19 With:ISABEL RILEY, Darwin Moreno, URL Address: [address] [place], [place] [id number]- When: Unknown Comments:DANK [facility] 06-16-2022 History of Present illness Narrative Ortho Nurse - Established Patient Intake Room#: 1 Left Knee Revision checkup, doing great , some pain of 2 when doing steps, Clindamycin was ordered today for dental prophylaxis Date: 06/16/2022 10:17 AM Patient: López Cortés MR#: [id number] : 1950 Age: 72 y.o. Referring Physician: [...] have reviewed the findings of the clinical ground crewman mission support and agree with their assessment. Ortho Nurse - Established Patient Intake Room#: 1 Left Knee Revision checkup, doing great , some pain of 2 when doing steps, Clindamycin was ordered today for dental prophylaxis Date: 06/16/2022 10:17 AM Patient: López Cortés MR#: [id number] : 1950 Age: 72 y.o. Referring Physician: [...] and sulfa antibiotics. documented in this encounter [facility] 05-26-2022 History of Present illness Narrative Review [...] at that time. documented in this encounter [facility] 02-17-2022 History of Present illness Narrative Review [...] - Pain Right Thumb - Pain HPI: Lópze is here today with a chief complaint [...] shots have helped. documented in this encounter [facility] 12-17-2021 History of Present illness Narrative HPI: López is here today for evaluation of his operative knee. 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 He was last evaluated on 10/29/21 by my PHYSIOTHERAPY AIDE, he was instructed to use Voltaren gel [...] have reviewed the findings of the clinical ground crewman mission support and agree with their assessment. Ortho Nurse Established Patient Intake Room#: 2---Visit today to follow -up on Left knee pain. He has no pain when resting or sleeping. The pain starts after long walks or using stairs. He had a left TKA on 10-29-20. His pain today is a 3. Date: 12/17/2021 10:55 AM Patient: López Cortés MR#: [id number] : 1950 Age: 71 y.o. Referring Physician: [...] 12/17/2021 10:55 AM Patient: López Cortés MR#: [id number] : 1950 Age: 71 y.o. Referring Physician: [...] and sulfa antibiotics. documented in this encounter [facility] 10-29-2021 History of Present illness Narrative HPI: [...] have reviewed the findings of the clinical ground crewman mission support and agree with their assessment. Ortho Nurse Established Patient Intake Room#: 4 Date: 10/29/2021 11:10 AM Patient: López Cortés MR#: [id number] : 1950 Age: 71 y.o. 1yr F/U [...] 10/29/2021 11:10 AM Patient: López Cortés MR#: [id number] : 1950 Age: 71 y.o. 1yr F/U [...] and sulfa antibiotics. documented in this encounter [employer] [facility] Evaluation + Plan note Future Appointments Appointment Date:05/16/2023 09:45:00 AM Scheduled Provider:Darwin RICHMOND MD Location:[facility] Appointment Type:URO Office Visit [facility] Evaluation + Plan note Future Appointments Appointment Date:02/28/2024 01:40:00 PM Scheduled Provider:Obey ALAS MD Location:[facility]3] Appointment Type:GS Procedure 30 [facility] General Surgery [facility] Evaluation + Plan note Future Appointments Appointment Date:03/06/2024 02:40:00 PM Scheduled Provider:Obey ALAS MD Location:[facility]3] Appointment Type: Established 15 General Surgery Don Evaluation note Diagnosis Hx of total knee arthroplasty, left- Primary [facility] Diagnosis Bilateral thumb pain- Primary Left knee pain, unspecified chronicity documented in [facility] Diagnosis Bilateral thumb pain documented in this encounter [facility]* Diagnosis Bilateral thumb pain documented in this encounter [facility]* Diagnosis Bilateral thumb pain- Primary Primary osteoarthritis of first carpometacarpal joint of left hand Primary localized osteoarthrosis, hand documented in this encounter [facility]* Diagnosis Bilateral thumb pain- Primary documented in this encounter [facility]* Diagnosis History of revision of total replacement of left knee joint- Primary documented in this [facility]* Diagnosis Hx of total knee arthroplasty, left- Primary [facility] N[facility]ative No data available for this section [facility] No data available for this section [facility] No data available for this section [facility] Summary Purpose Family History No Family History [...] FoundDocuments on File Type Date Recorded 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 Advance Directives/Living Will 10/28/2020 9:12 AM LIVING WILL, POA Latest Code Status on File Code Status Date Activated Date Inactivated Comments Full Code 10/28/2020 3:43 PM Documents on File Type Date Recorded 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 Advance Directives/Living Will 10/28/2020 9:12 [...] BONE SCAN WHOLE BODY Barak Hebert MD [address] [place], [place] [phone] [facility] Nuclear Medicine [address] [place], [place] [phone] Status Reason Specialty Diagnoses / Procedures Referred By Contact Referred To Contact Auth Not Needed Nuclear Medicine Diagnoses Pain in prosthetic joint, initial encounter Procedures NUC WBC STUDY [place] ABSCESS IMAGING, WHOLE BODY Barak Hebert MD [address] [place], [place] [phone] [place] [phone] Status Reason Specialty Diagnoses / Procedures Referred By Contact Referred To Contact Auth Not Needed Nuclear Medicine Diagnoses Pain in prosthetic joint, initial encounter Procedures NUC BONE MARROW LIMITED AREA [place] [facility] Barak Hebert MD [address] [place], [place] [phone] [facility] Medicine [address] [place], [place] [phone] Status Reason Specialty Diagnoses / Procedures Referred By Contact Referred To Contact Pending Review Diagnoses Left knee pain, unspecified chronicity Procedures XR BONE LENGTH STUDY Barak Hebert MD [address] [place] [phone] Status Reason Specialty Diagnoses / Procedures Referred By Contact Referred To Contact Pending Review Diagnoses Left knee pain, unspecified chronicity Procedures XR KNEE LEFT 3 VIEWS Barak Hebert MD [address] [place] [phone] Status Reason Specialty Diagnoses / Procedures Referred By Contact Referred To Contact Closed Nuclear Medicine Diagnoses Pain in prosthetic joint, subsequent encounter Procedures NUC 3 PHASE LIMITED BONE SCAN [place] BONE IMAGING, 3 PHASE Bhavana Addison PATIENT [facility] MGR-PHYSIOTHERAPY AIDE [address] [place], [place] [phone] [facility] Nuclear Medicine [address] [place], [place] [phone] Status Reason Specialty Diagnoses / Procedures Referred By Contact Referred To Contact New Request Diagnoses Hx of total knee arthroplasty, left Procedures XR KNEE LEFT 3 VIEWS Kaila Richmond PA-C [address] [place], [place] [phone] Status Reason Specialty Diagnoses / Procedures Referred By Contact Referred To Contact Closed Nuclear Medicine Diagnoses Pain in prosthetic joint, initial encounter Procedures NUC BONE MARROW LIMITED AREA [place] BONE [facility]ARROW [facility]AG[facility], [facility] Barak Hebert MD [address] [place], [place] [phone] [facility] Nuclear Medicine [address] [place] [phone] Specialty Diagnoses / Procedures Referred By Contac t Referred To Contact Diagnoses Hx of total knee arthroplasty, left Procedures XR KNEE LEFT 3 VIEWS Nila Bhavana, PATIENT [facility] MGR-PHYSIOTHERAPY AIDE [address] [place], [place] [phone] Referral ID Status Reason Start Date Expiration Date V isits Requested Visits Authorized [id number] New Request 10/22/2021 11/16/2022 1 1 Specialty Diagnoses / Procedures Referred By Contac t Referred To Contact Physical Therapy Diagnoses Left knee pain, unspecified chronicity Barak Hebert MD [address] [place], [place] [phone] Referral ID Status Reason Start Date Expiration Date V isits Requested Visits Authorized [id number] New Request 12/17/2021 01/11/2023 1 1 Scheduling Instructions . Specialty Diagnoses / Procedures Referred By Contac t Referred To Contact Orthopaedic Surgery Diagnoses Bilateral thumb pain Barak Hebert MD [address] [place] [address] Gadiel Floyd MD [address] [place] [address] Referral ID Status Reason Start Date Expiration Date V isits Requested Visits Authorized [id number] New Request 12/17/2021 01/11/2023 1 1 Specialty Diagnoses / Procedures Referred By Contac t Referred To Contact Diagnoses Bilateral thumb pain Procedures XR THUMB LEFT Gadiel Floyd MD [address] [place] [address] Referral ID Status Reason Start Date Expiration Date V isits Requested Visits Authorized [id number] New Request 02/11/2022 03/08/2023 1 1 Specialty Diagnoses / Procedures Referred By Contac t Referred To Contact Diagnoses History of revision of total replacement of left knee joint Procedures XR KNEE LEFT 3 VIEWS Barak Hebert MD [address] [place] [address] Referral ID Status Reason Start Date Expiration Date V isits Requested Visits Authorized [id number] New Request 06/15/2022 07/10/2023 1 1 Referral ID Status Reason Start Date Expiration Date V isits Requested Visits Authorized [id number] New Request 11/22/2023 12/16/2024 1 1 History [...] nasal MRSA screening, scheduling an appointment for [facility] [place] and the potential surgical date, and reviewing [...] file Gets together: Not on file Attends yazdanism service: Not on file Active member of [...] 09/11/2020 2:10 PM Patient: López Cortés MR#: [id number] : 1950 Age: 70 y.o. Referring Physician: [...] [x]cane, []bracing Are you followed by a edge sander? [] [x] Name: Are you followed by [...] Transfer Skill: Sit To Stand, Rehab Eval [place] (Sit-Stand Transfers) other (see comments) (SBA) Physical Assist/Nonphysical Assist: Sit/Stand 1 person assist Weight-Bearing Restrictions: Sit/Stand weight-bearing as tolerated Assistive Device For Transfer: Sit/Stand 2 wheeled walker Gait Skills, PT Eval Level of [place]: Gait stand-by assist Physical Assist/Nonphysical Assist: Gait 1 person assist Weight-Bearing Restrictions: Gait weight-bearing as tolerated Assistive Device For Transfer: Gait 2 wheeled walker Gait Distance (300ft) Gait Analysis, PT Eval Gait Pattern Used swing-through gait Gait Deviations Identified (Gait) decreased heel strike;other (see comments) (toe out ) Impairments Contributing To Gait Deviations pain;decreased ROM Stair Negotiation Level of [place]: Stair Negotiation stand-by assist Physical Assist/Nonphysical Assist: [...] Transfer Skill: Sit To Stand, Rehab Eval [place] (Sit-Stand Transfers) other (see comments) (SBA) Physical Assist/Nonphysical Assist: Sit/Stand 1 person assist Weight-Bearing Restrictions: Sit/Stand weight-bearing as tolerated Assistive Device For Transfer: Sit/Stand 2 wheeled walker Gait Skills, PT Eval Level of [place]: Gait stand-by assist Physical Assist/Nonphysical Assist: Gait 1 person assist Weight-Bearing Restrictions: Gait weight-bearing as tolerated Assistive Device For Transfer: Gait 2 wheeled walker Gait Distance other (see comments) (125ft) Gait Analysis, PT Eval Gait Pattern Used swing-through gait Gait Deviations Identified (Gait) decreased heel strike;other (see comments) (toe out) Impairments Contributing To Gait Deviations pain;decreased ROM Stair Negotiation Level of [place]: Stair Negotiation contact guard Physical Assist/Nonphysical Assist: [...] upon exit Therapist Information License # [id number] * Esperanza Avila MD - 10/28/2020 6:47 PM EST INPATIENT REHAB / SWINGBED PROGRESS NOTE Admit Date: 10/28/2020 Date of Evaluation: 10/28/20206:47 PM [facility] Rehab / Skilled bed LOS: [...] Supine to Sit, Rehab Eval Level of [place]: Supine/Sit stand-by assist Physical Assist/Nonphysical Assist: Supine/Sit 1 person assist Transfer Skill: Sit to Stand, Rehab Eval Level of [place]: Sit/Stand contact guard Physical Assist/Nonphysical Assist: Sit/Stand 1 person assist Weight-Bearing Restrictions: Sit/Stand weight-bearing as tolerated Assistive Device for Transfer: Sit/Stand wheeled walker Upper Body Dressing Level of [place] independent Physical Assist/Nonphysical Assist set-up required Lower Body Dressing Level of [place] moderate assist (50% patients effort) Physical Assist/Nonphysical Assist 1 person assist (including ZACKARY hose ) Toileting Level of [place] contact guard Physical Assist/Nonphysical Assist 1 person assist Grooming [place] Level (Grooming) supervision;wash face, hands General Therapy [...] hygiene training Therapist Information License # [id number] 1. Pt will complete LB dressing MOD [...] Supine to Sit, Rehab Eval Level of [place]: Supine/Sit stand-by assist Physical Assist/Nonphysical Assist: Supine/Sit 1 person assist Transfer Skill: Sit To Stand, Rehab Eval [place] (Sit-Stand Transfers) contact guard Physical Assist/Nonphysical Assist: Sit/Stand 1 person assist Weight-Bearing Restrictions: Sit/Stand weight-bearing as tolerated Assistive Device For Transfer: Sit/Stand 2 wheeled walker Gait Skills, PT Eval Level of [place]: Gait contact guard Physical Assist/Nonphysical Assist: Gait 1 person assist Weight-Bearing Restrictions: Gait weight-bearing as tolerated Assistive Device For Transfer: Gait 2 wheeled walker Gait Distance 75 feet Gait Analysis, PT Eval Gait Pattern Used swing-through gait Gait Deviations Identified (Gait) decreased gait speed;decreased heel strike;decreased step length Impairments Contributing To Gait Deviations decreased ROM;decreased strength Stair Negotiation Level of [place]: Stair Negotiation (not assessed at this time) [...] 11/19/2020 11:07 AM Patient: López Cortés MR#: [id number] : 1950 Age: 70 y.o. Referring Physician: [...] Date: 10/29/2020 Discharge Time: 10/29/2020 Discharge Unit: [facility] Inpatient Rehab unit Unit Length of [...] as: ULTRAM Follow-up: Tess Fuentes MD [address] [facility] [address] In 1 week SANJUANITA louise 1 week Barak Hebert MD [address] [facility] [address] Call in 3 days Upcoming Appointments (up to five)-Some appointments for Medical Center outpatient clinics or diagnostic testing locations are not displayed below Provider Department Dept Phone 11/19/2020 11:00 AM Kaila Richmond [facility] [phone] Total coordination of discharge care taking greater that 30 minutes documented in this encounter Discharge Instructions * Discharge Instr - Activity* Esperanza Aivla MD - 10/29/2020 8:19 AM EST As tolerated * Discharge Instr - Diet* Esperanza Avila MD - 10/29/2020 8:20 AM EST As tolerated * Discharge Instr - Notify* Santa [place] RN - 10/29/2020 10:08 AM EST Contact Office ([phone]) if: > Total Knee ROM < 90 [...] Hour Product Support Hotline at Contact Office ([phone]) if: > Total Knee ROM < 90 [...] Don office is closed, you may call [phone] where you will be connected with an after hours orthopedic nurse that will be able to answer your questions. The morning after your discharge Dr. Don office will contact you to follow up with how your recovery is progressing at home. * Attachments The following attachments cannot be sent through Care Everywhere. * meloxicam (oral/injection) (Trinidadian) * oxycodone (Trinidadian) * acetaminophen (oral) (Trinidadian) * docusate and senna (Trinidadian) * multivitamins (Trinidadian) * omeprazole (Trinidadian) * doxycycline (oral/injection) (Trinidadian) documented in this encounter Additional Source Comments (unrecognized sect ion and content) No Status Records FoundNo Status Records FoundNo Status Records FoundNo Status Records FoundNo Status Records FoundNo Status Records FoundNo Status Records Found INFORMATION SOURCE (unrecogn ized section and content) DATE CREATED AUTHOR 05/16/2018 [facility] DATE CREATED AUTHOR AUTHOR'S ORGANIZ ATION 05/16/2018 [facility] DATE CREATED AUTHOR AUTHOR'S ORGANIZ ATION 02/27/2019 [facility] DATE CREATED AUTHOR AUTHOR'S ORGANIZ ATION 10/30/2022 [facility] DATE CREATED AUTHOR AUTHOR'S ORGANIZ ATION 02/02/2023 [facility] DATE CREATED AUTHOR AUTHOR'S ORGANIZ ATION 06/09/2024 [facility] EPIC DATE CREATED AUTHOR AUTHOR'S ORGANIZ ATION 08/17/2024 [facility] Reason for Visit (unrecogniz ed section and content) Status Reason Specialty Diagnoses / Procedures Referred By Contact Referred To Contact Pending Review Diagnoses Left knee pain, unspecified chronicity Procedures XR BONE LENGTH STUDY Barak Hebert MD [address] [place], [place] [id number] Reason Comments Knee Pain Pain New Patient Status Reason Specialty Diagnoses / Procedures Referred By Contact Referred To Contact Closed Nuclear Medicine Diagnoses Pain in prosthetic joint, subsequent encounter Procedures NUC 3 PHASE LIMITED BONE SCAN [place] BONE IMAGING, 3 PHASE Bhavana Addison, PATIENT [facility] MGR-PHYSIOTHERAPY AIDE [address] [place], [place] [phone] [facility] [address] [place], [place] [phone] Status Reason Specialty Diagnoses / Procedures Referred By Contact Referred To Contact Closed Nuclear Medicine Diagnoses Pain in prosthetic joint, initial encounter Procedures NUC WBC STUDY [place] ABSCESS IMAGING, WHOLE BODY Barak Hebert MD [address] [place], [place] [phone] [facility] [address] [place], [place] [phone] Status Reason Specialty Diagnoses / Procedures Referre d By Contact Referred To Contact Diagnoses Mechanical loosening of internal left knee prosthetic joint, 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, 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] Procedures [place] REVISE KNEE JOINT REPLACE,ALL PARTS REVISION ARTHROPLASTY KNEE Barak Hebert MD [address] [place], [place] [phone] Reason Comments Post Op Visit Status Reason Specialty Diagnoses / Procedures Referred By Contact Referred To Contact New Request Diagnoses Hx of total knee arthroplasty, left Procedures XR KNEE LEFT 3 VIEWS Kaila Richmond PA-C [address] [place], [place] [phone] Status Reason Specialty Diagnoses / Procedures Referred By Contact Referred To Contact Closed Nuclear Medicine Diagnoses Pain in prosthetic joint, initial encounter Procedures NUC BONE MARROW LIMITED AREA [place] BONE MARROW IMAGING, LTD Barak Hebert MD [address] [place] [id number] [facility] [address] [place], [place] [phone] Status Reason Specialty Diagnoses / Procedures Referred By Contact Referred To Contact Auth Not Needed Nuclear Medicine Diagnoses Pain in prosthetic joint, initial encounter Procedures NUC WBC STUDY [place] ABSCESS IMAGING, WHOLE BODY Barak Hebert MD [address] [place] [address] [facility] [address] [place] [phone] Status Reason Specialty Diagnoses / Procedures Referred By Contact Referred To Contact New Request Diagnoses S/P total knee arthroplasty, left Procedures XR BONE LENGTH STUDY Barak Hebert MD [address] [place], [place] [phone] Specialty Diagnoses / Procedures Referred By Contac t Referred To Contact Diagnoses Hx of total knee arthroplasty, left Procedures XR KNEE LEFT 3 VIEWS Bhavana Addison, PATIENT [facility] MGR-PHYSIOTHERAPY AIDE [address] [place], [place] [phone] Referral ID Status Reason Start Date Expiration Date V isits Requested Visits Authorized [id number] New Request 10/22/2021 11/16/2022 1 1 Reason Comments Follow-up Reason Comments Pain Condition Update Specialty Diagnoses / Procedures Referred By Contac t Referred To Contact Diagnoses Bilateral thumb pain Procedures XR THUMB LEFT Gadiel Floyd MD [address] [place] [id number] Referral ID Status Reason Start Date Expiration Date V isits Requested Visits Authorized [id number] New Request 02/11/2022 03/08/2023 1 1 Reason Comments Pain Specialty Diagnoses / Procedures Referred By Contac t Referred To Contact Orthopaedic Surgery Diagnoses Bilateral thumb pain Barak Hebert MD [address] [place] [phone] Gadiel Floyd MD [address] [place] [address] Referral ID Status Reason Start Date Expiration Date V isits Requested Visits Authorized [id number] New Request 12/17/2021 01/11/2023 1 1 Reason Comments Follow-up Follow Up- Bilat Bas al Joint Arthritis/ Last Injection: 3/30/22- Pain Scale: 2/10 Bilat Referral ID Status Reason Start Date Expiration Date V isits Requested Visits Authorized [id number] New Request 11/22/2023 12/16/2024 1 1 Amaris Samayoa RN - 10/28/2020 2:35 PM ESTWhAmaris tubbs RN - 10/28/2020 12:50 PM EST Nursing Notes (unrecognized section and content) Patient ransferred to PACU via bed with this nurse and TOY DESIGNER. Bedside report given to ANOOP Law. Fire [...] in the discharge planning process with social media strategist and the multidisciplinary team. Return to bay from PT. C/o pain 4 out of 10. Pain pill offered but Tylenol due. PT to take tylenol and save oxicodone for after lunch. Follow up phone call to [facility], who state that they can accept to start services tomorrow. Follow up call received from Suzy at [facility]. Referral for [facility] therapistSanta to be made through [facility]. Instructed to request Santa for PT on referral. Referral sent at this time. To PT room Spoke with Suzy at [facility] regarding referral. Referring patient information, will call [...] PROCEDURE: 10/28/2020 ATTENDING PHYSICIAN: Barak Hebert M.D. SURVEY COMPILER: Bhavana Addison CNP. PREOPERATIVE DIAGNOSIS: Failed left [...] on the back table according to the dexigraph operator s technique. They were then cemented into [...] procedure) without the assistance of a skilled rn neurosurgical. A rn neurosurgical was medically necessary for positioning, retraction and [...] bay 310. POST OPERATIVE/PROCEDURE NOTE López Cortés ([id number]) SURGEON Surgeon(s) and Role: * Barak Hebert MD - Primary SURVEY COMPILER MARK Richardson ANESTHESIOLOGIST TOY DESIGNER: Yusef Escobedo CRNA SURGICAL STAFF Ramp Lead: Kerry Richter RN Nurse Practitioner: MARK Richardson Scrub Person: Andrew Moffett RN; Alyx Miller; Martha Rolon RN Credit Department Manager Etl Developer: Escobar Rodriguez Private Duty Rn: Efrem Bonner LPN PROCEDURE PERFORMED Procedure(s) (LRB): [...] CULTURE AND DIRECT SMEAR, LESION, TISSUE, DEVICE Barka Hebert MD 10/28/2020 1301 Bhavana Addison, PATIENT [facility] MGR-PHYSIOTHERAPY AIDE October 28, 2020 2:39 PM CM met with patient this date to discuss post-surgical discharge plans. Patient states that he plans to return home with his spouse and [facility] after discharge for a left knee revision. He states that lives in [place] and would like to utilize [facility] in that area. He states that he has a wheeled walker and will bring it with him on the day of surgery. CM to continue to follow and assist with discharge plans. 10/02/20 0928 Information Source Information Source patient Contact Information English Language Learner Tutor Name Sun Lopez RN Case Manager's Living [...] Care Teams (unrecognized sec tion and content) Estate Planning Attorney Relationship Specialty Start Date End Date Tess Fuentes MD [address] [place] [address] PCP - General Family Medicine 09/11/20 Estate Planning Attorney Relationship Specialty Start Date End Date Tess Fuentes MD [address] [place] [address] PCP - General Family Medicine 09/11/20 Estate Planning Attorney Relationship Specialty Start Date End Date Tess Fuentes MD [address] [place] [address] PCP - General Family Medicine 09/11/20 Estate Planning Attorney Relationship Specialty Start Date End Date Tess Fuentes MD [address] [place] [address] PCP - General Family Medicine 09/11/20 Estate Planning Attorney Relationship Specialty Start Date End Date Tess Fuentes MD [address] [place] [address] PCP - General Family Medicine 09/11/20 Estate Planning Attorney Relationship Specialty Start Date End Date Tess Fuentes MD [address] [place] [address] PCP - General Family Medicine 09/11/20 Estate Planning Attorney Relationship Specialty Start Date End Date Tess Fuentes MD [address] [place] [address] PCP - General Family Medicine 09/11/20 Estate Planning Attorney Relationship Specialty Start Date End Date Tess Fuentes MD [address] [place] [address] PCP - General Family Medicine 09/11/20 Estate Planning Attorney Relationship Specialty Start Date End Date Tess Fuentes MD [address] [facility] [place] [address] PCP - General Family Medicine 09/11/20 Estate Planning Attorney Relationship Specialty Start Date End Date Tess Fuentes MD [address] [place] [address] PCP - General Family Medicine 09/11/20 FOR [...] BE BASED ON THE PRIMARY CLINICAL RECORDS. [employer] [facility]. provides no warranty or guarantee of the accuracy or completeness of information in this document.
== END 2024-08-29 09:34 | disposition home or self-care (01) ==
LOC: PST 07:30 → SURGOUT 09:29 → PST 09:34
PROVIDERS: PCP Family Medicine; Visit Provider Surgery
DX: Z01.818 Encounter for other preprocedural examination (principal); C44.211 Basal cell carcinoma of skin of unspecified ear and external auricular canal

== ENCOUNTER 2024-08-29 09:22 | Day surgery (SDC) | payer MEDICARE, SELFPAY ==
--- NOTE | 2024-08-29 | OP_ITS ---
OPERATION DATE: 08/29/2024 PREOPERATIVE DIAGNOSIS: Basal cell cancer left pinna. POSTOPERATIVE DIAGNOSIS: Basal cell cancer left pinna. PROCEDURE: Wide excision basal cell cancer left ear. SURGEON: Obey Mahmood M.D. ANESTHESIA: Local with 0.5% Marcaine plain. ESTIMATED BLOOD LOSS: Less than 7 mL. INDICATIONS AND CONSENT: Patient is a 74-year-old male with previous non- healing lesion excised in the office, which came back as basal cell cancer with close peripheral margin. He developed a non-healing scab in the area and now presents for re-excision of basal cell cancer. Indications, risks, benefits, alternatives of proceeding with excision were explained extensively to the patient, including risks of bleeding, infection, scarring, pain, recurrence, need for further surgery. All of his questions were answered. Informed consent was obtained. PROCEDURE: Patient brought to the operating, placed in the partial right lateral decubitus position. The area was prepped and draped in the usual sterile fashion. It was anesthetized with 0.5% Marcaine plain. The upper portion of the pinna contained a scar with scabs on either side of the scar. This was excised in elliptical fashion longitudinally. Total length was approximately 1.5 cm and 0.5 cm wide. The specimen was marked with a short stitch superiorly and long stitch laterally. It was sent off to pathology. Subcutaneous tissue was re-approximated with interrupted 4-0 Monocryl suture. The skin was then closed with 5-0 nylon interrupted sutures. There was good hemostasis. A small amount of antibiotic ointment was applied. Patient tolerated procedure well, was discharged to home in good condition. He is to follow up in 10-14 days for suture removal. He is to call sooner with any problems or questions. CC: Efe Morris M.D. PRISCILA
--- OUTSIDE RECORDS SUMMARY | 2024-08-29 09:28 | XMS_ITS | CCD ---
Author Organization [facility] Team Providers Care [place] Repairer Name Role Phone PHYSICIAN, DEFAULT Unavailable Unavailable [...] Referring Unavailable Tess Fuentes Primary Care Provider [phone] Tess Fuentes MD Primary Care Provider [phone] BARAK HEBERT Referring Unavailable HOTESS Mendez [...] Unavailable Tess Fuentes MD Primary Care Provider [phone] SOLOMON IGNACIO Attending Unavailable NILL, Obey R Attending Unavailable NILL, Obey R Attending Unavailable NILL, Obey R Attending Unavailable NILL, Obey R Attending Unavailable Hoy, Tess Referring Unavailable Allergies Allergy Classification Reported Allergen(s) Allergy Type Date of Onset Reaction(s) Facility (1 source) Sulfonamides (Antibiotic); Translations: [SULFA (SULFONAMIDE ANTIBIOTICS)] Propensity to adverse reactions to drug (disorder) 8 [facility] Repository (19 sources) Penicillins Propensity to adverse reactions to drug 0 [facility] (19 sources) Sulfonamides (Antibiotic) Propensity to adverse reactions to drug 0 [facility] (4 sources) Penicillin; Translations: [penicillin] Drug Allergy Cutaneous eruption (morphologic abnormality) General Surgery [facility] (7 sources) Sulfamethoxazole ; Translations: [sulfamethoxazol e] Drug Allergy Unknown (qualifier value) [facility] (1 source) Sulfonamides (Antibiotic) Drug allergy (disorder) 1 [facility] Repository (2 sources) Penicillins Propensity to adverse reactions to drug 0 [facility] (2 sources) Sulfonamides (Antibiotic) Propensity to adverse reactions to drug 0 [facility] Medications Current Medications Medication Drug Class(es) [...] Daily, # 90 tab(s), Refills(s) 3, Pharmacy: [facility]/pharmacy #[id number] Start Date: 07/18/19 Status: Ordered pregabalin 75 [...] sex, # 30 tab(s), Refills(s) 5, Pharmacy: [facility] #[id number], 172, cm, 01/12/22 11:29:00 EST, [...] mg docusate sodium 50 mg / sennosides, longterm 8.6 mg oral tablet (1 source) Start: [...] Discontinued Start: 10-01-2020 [facility] pravastatin 40 mg Tab 40 mg = 1 tab(s), Oral, Daily Start Date: 10/01/20 Status: Ordered take 2 tablets by [facility] once daily pravastatin 20 MG tablet Take [...] for choosing us for your care. Normal [facility] General Surgery Office/Clini c Noteon 08-14-2024 General [...] plan wide excision under local anesthesia at [facility], informed consent obtained. Follow-up No qualifying data [...] virus vaccine, inactivated 08/2023 Recorded SARS-CoV-2 (COVID-19) mRNAMUL.ORD![id number] 09/24/2022 Recorded influenza virus vaccine, inactivated 08/31/2022 Recorded SARSCoV2 mRNA(mbwkyowqg-mvui-jrsaoi) vac 03/29/2022 Recorded SARS-CoV-2 (COVID-19) Ad26 vaccine 09/2021 Recorded SARS-CoV-2 (COVID-19) mRNA-1273 vaccine 09/13/2021 Recorded SARS-CoV-2 (COVID-19) Ad26 vaccine 02/2021 Recorded SARS-CoV-2 (COVID-19) mRNA-1273 vaccine 02/04/2021 Recorded SARS-CoV-2 (COVID-19) Ad26 vaccine 01/2021 Recorded SARS-CoV-2 (COVID-19) mRNA-1273 vaccine 01/07/2021 Recorded influenza virus vaccine, inactivated 09/03/2020 Recorded influenza virus vaccine, inactivated (more content not included)... Normal [facility] Comment on above: Result Comment: Elec [...] virus vaccine, inactivated 08/2023 Recorded SARS-CoV-2 (COVID-19) mRNAMUL.ORD![id number] 09/24/2022 Recorded influenza virus vaccine, inactivated 08/31/2022 Recorded SARSCoV2 mRNA(wfvcstpiw-cwxb-ulkpuq) vac 03/29/2022 Recorded SARS-CoV-2 (COVID-19) Ad26 vaccine [...] virus vaccine, inactivated 09/09/2016 Recorded Normal [facility] Comment on above: Result Comment: Elec [...] for choosing us for your care. Normal [facility] Pathology Noteon 03-02-2024 Pathology Note [id number]#[id number] Normal [facility] Ambulatory Visit Summaryon 0 02-28-2024 Ambulatory Visit [...] MD Where: General Surgery Nill/Carina Ochoa Normal [facility] General Surgery Office/Clini c Noteon 02-28-2024 [...] virus vaccine, inactivated 08/2023 Recorded SARS-CoV-2 (COVID-19) mRNAMUL.ORD![id number] 09/24/2022 Recorded influenza virus vaccine, inactivated 08/31/2022 Recorded SARSCoV2 mRNA(etcovjmzy-seyy-rwexeu) vac 03/29/2022 Recorded SARS-CoV-2 (COVID-19) Ad26 vaccine [...] virus vaccine, inactivated 09/09/2016 Recorded Normal [facility] Comment on above: Result Comment: Elec [...] for choosing us for your care. Normal [facility] Physician Referralon 024 Physician Referral [id number]#[id number] Normal [facility] Physician Referralon 024 Physician Referral [id number]#1.00TIFF Normal [facility] INSULINon 01-28-2023 Insulin 15.8 uIU/mL Normal 2.6-24.9 [facility] Comment on above: Performed By: #### I NSULIN #### [facility] [address] [place] [address] Dr. Braulio Fritz CBC AUTO DIFFon 01-27-2023 BASO # 0.0 103/ul Normal 0.0-0.1 [facility] Comment on above: Performed By: #### I NSULIN #### [facility] [address] [place] [address] Dr. Braulio Fritz Basophils/100 WBC (Bld) 0.5 % Normal 0.2-2.0 [facility] Comment on above: Performed By: #### I NSULIN #### [facility] [address] [place] [address] Dr. Braulio Fritz EO # 0.3 103/ul Normal 0.0-0.7 [facility] Comment on above: Performed By: #### I NSULIN #### [facility] [address] [place] [address] Dr. Braulio Fritz Eosinophils/100 WBC (Bld) 3.2 % Normal 0.9-7.0 [facility] Comment on above: Performed By: #### I NSULIN #### [facility] [address] [place] [address] Dr. Braulio Fritz Erythrocyte distribution width (RBC) [Ratio] 14.8 % Normal 11.0-15.0 [facility] Comment on above: Performed By: #### I NSULIN #### [facility] [address] [place] [address] Dr. Braulio Fritz Hematocrit (Bld) [Volume fraction] 48.1 % Normal 42.0-54.0 [facility] Comment on above: Performed By: #### I NSULIN #### [facility] [address] [place] [address] Dr. Braulio Fritz Hemoglobin (Bld) [Mass/Vol] 16.1 g/dL Normal 14.0-18.0 [facility] Comment on above: Performed By: #### I NSULIN #### [facility] [address] [place] [address] Dr. Braulio Fritz IG # 0.05 10e3/ul Critically high 0.00-0.03 [facility] Comment on above: Performed By: #### I NSULIN #### [facility] [address] [place] [address] Dr. Braulio Fritz IG % 0.6 % Critically high 0.0-0.5 [facility] Comment on above: Performed By: #### I NSULIN #### [facility] [address] [place] [address] Dr. Braulio Fritz LYMPH # 2.2 103/ul Normal 1.2-3.8 [facility] Comment on above: Performed By: #### I NSULIN #### [facility] [address] [place] [address] Dr. Braulio Fritz Lymphocytes/100 WBC (Bld) 25.7 % Normal 20.5-60.0 [facility] Comment on above: Performed By: #### I NSULIN #### [facility] [address] [place] [address] Dr. Braulio Fritz MANUAL DIFF REQ NO Normal [facility] Comment on above: Performed By: #### I NSULIN #### [facility] [address] [place] [address] Dr. Braulio Fritz MCH (RBC) [Entitic mass] 31.7 pg Normal 25.9-34.0 [facility] Comment on above: Performed By: #### I NSULIN #### [facility] [address] [place] [address] Dr. Braulio Fritz MCHC (RBC) [Mass/Vol] 33.5 g/dL Normal 29.9-35.2 [facility] Comment on above: Performed By: #### I NSULIN #### [facility] [address] [place] [address] Dr. Braulio Fritz MCV (RBC) [Entitic vol] 94.7 fL Critically high 80.0-94.0 [facility] Comment on above: Performed By: #### I NSULIN #### [facility] [address] [place] [address] Dr. Braulio Fritz MONO # 0.9 103/ul Critically high 0.3-0.8 [facility] Comment on above: Performed By: #### I NSULIN #### [facility] [address] [place] [address] Dr. Braulio Fritz Monocytes/100 WBC (Bld) 10.5 % Normal 1.7-12.0 [facility] Comment on above: Performed By: #### I NSULIN #### [facility] [address] [place] [address] Dr. Braulio Fritz NEUT # 5.1 103/ul Normal 1.4-6.5 [facility] Comment on above: Performed By: #### I NSULIN #### [facility] [address] [place] [address] Dr. Braulio Fritz Neutrophils/100 WBC (Bld) 59.5 % Normal 43.0-75.0 [facility] Comment on above: Performed By: #### I NSULIN #### [facility] [address] [place] [address] Dr. Braulio Fritz Platelet mean volume (Bld) [Entitic vol] 10.5 fL Normal 9.5-13.5 [facility] Comment on above: Performed By: #### I NSULIN #### [facility] [address] [place] [address] Dr. Braulio Fritz PLT 187 103/ul Normal 150-450 [facility] Comment on above: Performed By: #### I NSULIN #### [facility] [address] [address] [address] Braulio Fritz RBC 5.08 106/ul Normal 4.70-6.10 [facility] Comment on above: Performed By: #### I NSULIN #### [facility] [address] [place] [address] Dr. Braulio Fritz WBC 8.5 103/ul Normal 4.0-11.0 [facility] Comment on above: Performed By: #### I NSULIN #### [facility] [address] [place] [address] Dr. Braulio Fritz FREE THYROXINE INDEX T7on FTI 2.39 Normal 1.30-4.50 [facility] Comment on above: Performed By: #### I NSULIN #### [facility] [address] [place] [address] Dr. Braulio Fritz T3U 38.0 % Normal 33.0-40.0 [facility] Comment on above: Performed By: #### I NSULIN #### [facility] [address] [place] [address] Dr. Braulio Fritz T4 [Mass/Vol] 6.30 ug/dL Normal 4.50-12.10 [facility] Comment on above: Performed By: #### I NSULIN #### [facility] [address] [place] [address] Dr. Braulio Fritz GLYCOHEMOGLOBIN A1Con 2022 ADA RECOMMENDATION SEE BELOW Normal [facility] Comment on above: Result Comment: ADA RECOMMENDED LIMIT 4.0 - 6.0 ADA THERAPEUTIC TARGET < 7.0 ACTION SUGGESTED > 7.0 Performed By: #### A 1C #### [facility] [address] [address] [address] Braulio Fritz Glucose [Mass/Vol] 111 mg/dL Normal [facility] Comment on above: Performed By: #### A 1C #### [facility] [address] [place] [address] Dr. Braulio Fritz HbA1c (Bld) [Mass fraction] 5.5 % Normal 4.5-6.2 [facility] Comment on above: Performed By: #### A 1C #### [facility] [address] [place] [address] Dr. Braulio Fritz LIPID PROFILEon 01-27-2023 CHOL-HDL RATIO NORM SEE BELOW Normal [facility] Comment on above: Result Comment: 3.3 - 4.4 LOW RISK 4.4 - 7.1 AVERAGE RISK 7.1 - 11.0 MODERATE RISK >11.0 HIGH RISK Performed By: #### I NSULIN #### [facility] [address] [place] [address] Dr. Braulio Fritz Cholesterol [Mass/Vol] 162 mg/dL Normal <=200 [facility] Comment on above: Performed By: #### I NSULIN #### [facility] [address] [place] [address] Dr. Braulio Fritz Cholesterol in HDL [Mass/Vol] 48 mg/dL Normal 40-60 [facility] Comment on above: Performed By: #### I NSULIN #### [facility] [address] [place] [address] Dr. Braulio Fritz Cholesterol in LDL [Mass/Vol] 91.6 mg/dL Normal [facility] Comment on above: Performed By: #### I NSULIN #### [facility] [address] [place] [address] Dr. Braulio Fritz Cholesterol.total/C holesterol in HDL [Mass ratio] 3.4 {ratio} Normal [facility] Comment on above: Performed By: #### I NSULIN #### [facility] [address] [place] [address] Dr. Braulio Fritz HDL NORMAL > or = 60 mg/dl - LO W CARDIOVASCULAR RISK <40 mg/dl - HIGH CARDIOVASCULAR RISK Normal [facility] Comment on above: Performed By: #### I NSULIN #### [facility] [address] [address] [address] Braulio Fritz LDL CALC NORMAL SEE BELOW Normal [facility] Comment on above: Result Comment: <100 mg/dl OPTIMAL 100 - 129 mg/dl NEAR OR ABOVE OPTIMAL 130 - 159 mg/dl BORDERLINE HIGH 160 - 189 mg/dl HIGH >190 mg/dl VERY HIGH Performed By: #### I NSULIN #### [facility] [address] [place] [address] Dr. Braulio Fritz Triglyceride [Mass/Vol] 112 mg/dL Normal <=150 [facility] Comment on above: Performed By: #### I NSULIN #### [facility] [address] [place] [address] Dr. Braulio Fritz VLDL CALC 22.4 mg/dL Normal [facility] Comment on above: Performed By: #### I NSULIN #### [facility] [address] [place] [address] Dr. Braulio Fritz PROF 14(COMP METB)on 023 Albumin [Mass/Vol] 3.6 g/dL Normal 3.4-5.0 [facility] Comment on above: Performed By: #### I NSULIN #### [facility] [address] [place] [address] Dr. Braulio Fritz Albumin/Globulin [Mass ratio] 1.1 {ratio} Normal [facility] Comment on above: Performed By: #### I NSULIN #### [facility] [address] [place] [address] Dr. Braulio Fritz ALP [Catalytic activity/Vol] 111 U/L Normal 46-116 [facility] Comment on above: Performed By: #### I NSULIN #### [facility] [address] [place] [address] Dr. Braulio Fritz ALT [Catalytic activity/Vol] 31 U/L Normal 16-63 [facility] Comment on above: Performed By: #### I NSULIN #### [facility] [address] [place] [address] Dr. Braulio Fritz Anion gap [Moles/Vol] 12.6 mmol/L Normal [facility] Comment on above: Performed By: #### I NSULIN #### [facility] [address] [place] [address] Dr. Braulio Fritz AST [Catalytic activity/Vol] 23 U/L Normal 15-37 [facility] Comment on above: Performed By: #### I NSULIN #### [facility] [address] [place] [address] Dr. Braulio Fritz Bilirubin [Mass/Vol] 1.7 mg/dL Critically high 0.2-1.0 [facility] Comment on above: Performed By: #### I NSULIN #### [facility] [address] [place] [address] Dr. Braulio Fritz Calcium [Mass/Vol] 9.1 mg/dL Normal 8.5-10.1 [facility] Comment on above: Performed By: #### I NSULIN #### [facility] [address] [place] [address] Dr. Braulio Fritz Chloride [Moles/Vol] 107 mmol/L Normal 98-107 [facility] Comment on above: Performed By: #### I NSULIN #### [facility] [address] [place] [address] Dr. Braulio Fritz CO2 [Moles/Vol] 28.7 mmol/L Normal 21.0-32.0 [facility] Comment on above: Performed By: #### I NSULIN #### [facility] [address] [place] [address] Dr. Braulio Fritz Creatinine [Mass/Vol] 1.41 mg/dL Critically high 0.70-1.30 [facility] Comment on above: Performed By: #### I NSULIN #### [facility] [address] [place] [address] Dr. Braulio Fritz EGFR-AF GUYANESE 60 mL/min/1.73m2 Normal >=60 [facility] Comment on above: Performed By: #### I NSULIN #### [facility] [address] [place] [address] Dr. Braulio Fritz EGFR-NON AF GUYANESE 49 mL/min/1.73m2 Critically low >=60 [facility] Comment on above: Performed By: #### I NSULIN #### [facility] [address] [address] [address] Braulio Fritz Globulin (S) [Mass/Vol] 3.2 g/dL Normal [facility] Comment on above: Performed By: #### I NSULIN #### [facility] [address] [address] [address] Braulio Fritz Glucose [Mass/Vol] 95 mg/dL Normal 74-106 [facility] Comment on above: Performed By: #### I NSULIN #### [facility] [address] [place] [address] Dr. Braulio Fritz Potassium [Moles/Vol] 4.3 mmol/L Normal 3.5-5.1 [facility] Comment on above: Performed By: #### I NSULIN #### [facility] [address] [place] [address] Dr. Braulio Fritz Protein [Mass/Vol] 6.8 g/dL Normal 6.4-8.2 [facility] Comment on above: Performed By: #### I NSULIN #### [facility] [address] [place] [address] Dr. Braulio Fritz Sodium [Moles/Vol] 144 mmol/L Normal 136-145 [facility] Comment on above: Performed By: #### I NSULIN #### [facility] [address] [place] [address] Dr. Braulio Fritz Urea nitrogen [Mass/Vol] 24.0 mg/dL Critically high 7.0-18.0 [facility] Comment on above: Performed By: #### I NSULIN #### [facility] [address] [place] [address] Dr. Braulio Fritz Urea nitrogen/Creatinine [Mass ratio] 17.0 mg/mg Normal [facility] Comment on above: Performed By: #### I NSULIN #### [facility] [address] [place] [address] Dr. Braulio Fritz SED RATE WESTERGRENon 2022 SED RATE 19 mm/hr Normal <=20 [facility] Comment on above: Performed By: #### I NSULIN #### [facility] [address] [place] [address] Dr. Braulio Fritz TSHon 01-27-2023 TSH 0.882 uIU/mL Normal 0.358-3.740 [facility] Comment on above: Performed By: #### I NSULIN #### [facility] [address] [place] [address] Dr. Braulio Fritz URIC ACID SERUMon 01-27-2023 Urate [Mass/Vol] 7.3 mg/dL Critically high 3.5-7.2 [facility] Comment on above: Performed By: #### I NSULIN #### [facility] [address] [place] [address] Dr. Braulio Fritz VITAMIN D 25 OHon 01-27-2023 VIT D 25-OH 44.5 ng/mL Normal [facility] Comment on above: Performed By: #### P ANIYAC, VITAD #### [facility] [address] [place] [address] Dr. Braulio Fritz VIT D RANGES SEE BELOW Normal [facility] Comment on above: Result Comment: <20 ng/mL Vit D deficient 20 - <30 ng/mL Vit D insufficient 30 - 100 ng/mL Vit D sufficient >100 ng/mL Potential Toxicity Performed By: #### P MARGARITA, VITAD #### [facility] [address] [place] [address] Dr. Braulio Fritz T4 LABCORPon 04-16-2022 T4 [Mass/Vol] 6.6 ug/dL Normal 4.5-12.0 [facility] Comment on above: Performed By: #### I NSULIN #### [facility] [address] [place] [address] Dr. Braulio Fritz NM STRESS/REST MULTIon 04-15 NM STRESS/REST MULTI Patient: LÓPEZ CORTÉS Exam Date: 04/15/2022 : 1950 Gender:M Ordering : DR TESS FUENTES . Admission #: [id number] Family : Order #: [id number] CLICK HERE TO VIEW EXAM RADIOLOGY REPORT [...] Stahl M.D. on 04/16/2022 at 13:16 Normal [facility] ECHOCARDIO M/2D COMPLETEon 0 04-13-2022 ECHOCARDIO M/2D COMPLETE Patient: LÓPEZ CORTÉS Exam Date: 04/13/2022 : 1950 Gender:M Ordering : DR TESS FUENTES . Admission #: [id number] Family : Order #: [id number] CLICK HERE TO VIEW EXAM ECHOCARDIOGRAM REPORT [...] Area(A4C): 20.60 cm2 Left Atrium Systolic Volume(A2C): 36560 mm3 Left Atrium Systolic Volume(A4C): 93940 mm3 Mitral Valve MV E to A [...] M.D. on 04/13/2022 at 11:36 Normal [facility] OCC BLD IMMUNO SCREENon 03-22 OCCULT BLOOD Negative Normal NEGATIVE [facility] Comment on above: Performed By: #### O BSCRN #### [facility] [address] [place] [address] Dr. Braulio Firtz INSULINon 04-12-2022 Insulin 18.7 uIU/mL Normal 2.6-24.9 [facility] Comment on above: Performed By: #### I NSULIN #### [facility] [address] [place] [address] Dr. Braulio Fritz BNPon 04-10-2022 Natriuretic peptide B (Bld) [Mass/Vol] 672.0 pg/mL Normal <=900.0 [facility] Comment on above: Performed By: #### A 1C #### [facility] [address] [place] [address] Dr. Braulio Fritz CBC AUTO DIFFon 04-10-2022 BASO # 0.1 103/ul Normal 0.0-0.1 [facility] Comment on above: Performed By: #### I NSULIN #### [facility] [address] [place] [address] Dr. Braulio Fritz Basophils/100 WBC (Bld) 0.8 % Normal 0.2-2.0 [facility] Comment on above: Performed By: #### I NSULIN #### [facility] [address] [place] [address] Dr. Braulio Fritz EO # 0.3 103/ul Normal 0.0-0.7 [facility] Comment on above: Performed By: #### I NSULIN #### [facility] [address] [place] [address] Dr. Braulio Fritz Eosinophils/100 WBC (Bld) 4.0 % Normal 0.9-7.0 [facility] Comment on above: Performed By: #### I NSULIN #### [facility] [address] [place] [address] Dr. Braulio Fritz Erythrocyte distribution width (RBC) [Ratio] 13.7 % Normal 11.0-15.0 [facility] Comment on above: Performed By: #### I NSULIN #### [facility] [address] [place] [address] Dr. Braulio Fritz Hematocrit (Bld) [Volume fraction] 47.7 % Normal 42.0-54.0 [facility] Comment on above: Performed By: #### I NSULIN #### [facility] Laboratory [address] [place] [address] Dr. Braulio Fritz Hemoglobin (Bld) [Mass/Vol] 15.9 g/dL Normal 14.0-18.0 [facility] Comment on above: Performed By: #### I NSULIN #### [facility] Laboratory [address] [place] [address] Dr. Braulio Fritz IG # 0.02 10e3/ul Normal 0.00-0.03 [facility] Comment on above: Performed By: #### I NSULIN #### [facility] Laboratory [address] [place] [address] Dr. Braulio Fritz IG % 0.3 % Normal 0.0-0.5 [facility] Comment on above: Performed By: #### I NSULIN #### [facility] [address] [place] [address] Dr. Braulio Frtiz LYMPH # 1.6 103/ul Normal 1.2-3.8 [facility] Comment on above: Performed By: #### I NSULIN #### [facility] Laboratory [address] [place] [address] Dr. Braulio Fritz Lymphocytes/100 WBC (Bld) 24.6 % Normal 20.5-60.0 [facility] Comment on above: Performed By: #### I NSULIN #### [facility] [address] [place] [address] Dr. Braulio Fritz MANUAL DIFF REQ NO Normal [facility] Comment on above: Performed By: #### I NSULIN #### [facility] [address] [place] [address] Dr. Braulio Fritz MCH (RBC) [Entitic mass] 31.6 pg Normal 25.9-34.0 [facility] Comment on above: Performed By: #### I NSULIN #### [facility] [address] [place] [address] Dr. Braulio Fritz MCHC (RBC) [Mass/Vol] 33.3 g/dL Normal 29.9-35.2 [facility] Comment on above: Performed By: #### I NSULIN #### [facility] [address] [place] [address] Dr. Braulio Fritz MCV (RBC) [Entitic vol] 94.8 fL Critically high 80.0-94.0 [facility] Comment on above: Performed By: #### I NSULIN #### [facility] [address] [place] [address] Dr. Braulio Fritz MONO # 0.7 103/ul Normal 0.3-0.8 [facility] Comment on above: Performed By: #### I NSULIN #### [facility] Laboratory [address] [place] [address] Dr. Braulio Fritz Monocytes/100 WBC (Bld) 11.2 % Normal 1.7-12.0 [facility] Comment on above: Performed By: #### I NSULIN #### [facility] [address] [place] [address] Dr. Braulio Fritz NEUT # 3.8 103/ul Normal 1.4-6.5 [facility] Comment on above: Performed By: #### I NSULIN #### [facility] Laboratory [address] [address] [address] Braulio Fritz Neutrophils/100 WBC (Bld) 59.1 % Normal 43.0-75.0 [facility] Comment on above: Performed By: #### I NSULIN #### [facility] [address] [place] [address] Dr. Braulio Fritz Platelet mean volume (Bld) [Entitic vol] 10.0 fL Normal 9.5-13.5 [facility] Comment on above: Performed By: #### I NSULIN #### [facility] [address] [place] [address] Dr. Braulio Fritz PLT 210 103/ul Normal 150-450 [facility] Comment on above: Performed By: #### I NSULIN #### [facility] [address] [place] [address] Dr. Braulio Fritz RBC 5.03 106/ul Normal 4.70-6.10 [facility] Comment on above: Performed By: #### I NSULIN #### [facility] [address] [place] [address] Dr. Braulio Fritz WBC 6.5 103/ul Normal 4.0-11.0 [facility] Comment on above: Performed By: #### I NSULIN #### [facility] Laboratory [address] [place] [address] Dr. Braulio Fritz FREE THYROXINE INDEX T7on FTI 2.64 Normal 1.30-4.50 [facility] Comment on above: Performed By: #### A 1C #### [facility] [address] [place] [address] Dr. Braulio Fritz T3U 40.0 % Normal 33.0-40.0 [facility] Comment on above: Performed By: #### A 1C #### [facility] [address] [place] [address] Dr. Braulio Fritz T4 [Mass/Vol] 6.60 ug/dL Normal 4.50-12.10 [facility] Comment on above: Performed By: #### A 1C #### [facility] [address] [address] [address] Braulio Fritz GLYCOHEMOGLOBIN A1Con 2021 ADA RECOMMENDATION SEE BELOW Normal [facility] Comment on above: Result Comment: ADA RECOMMENDED LIMIT 4.0 - 6.0 ADA THERAPEUTIC TARGET < 7.0 ACTION SUGGESTED > 7.0 Performed By: #### A 1C #### [facility] [address] [address] [address] Braulio Fritz Glucose [Mass/Vol] 114 mg/dL Normal [facility] Comment on above: Performed By: #### A 1C #### [facility] [address] [place] [address] Dr. Braulio Fritz HbA1c (Bld) [Mass fraction] 5.6 % Normal 4.5-6.2 [facility] Comment on above: Performed By: #### A 1C #### [facility] [address] [place] [address] Dr. Braulio Fritz IRONon 04-10-2022 Iron [Mass/Vol] 105.0 ug/dL Normal 65.0-175.0 [facility] Comment on above: Performed By: #### B 12FOL, VITAD, PSASC, IRON #### [facility] [address] [place] [address] Dr. Braulio Fritz LIPID PROFILEon 04-10-2022 CHOL-HDL RATIO NORM SEE BELOW Normal [facility] Comment on above: Result Comment: 3.3 - 4.4 LOW RISK 4.4 - 7.1 AVERAGE RISK 7.1 - 11.0 MODERATE RISK >11.0 HIGH RISK Performed By: #### A 1C #### [facility] [address] [place] [address] Dr. Braulio Fritz Cholesterol [Mass/Vol] 132 mg/dL Normal <=200 [facility] Comment on above: Performed By: #### A 1C #### [facility] [address] [place] [address] Dr. Braulio Fritz Cholesterol in HDL [Mass/Vol] 38 mg/dL Critically low 40-60 [facility] Comment on above: Performed By: #### A 1C #### [facility] [address] [address] [address] Braulio Fritz Cholesterol in LDL [Mass/Vol] 71.2 mg/dL Normal [facility] Comment on above: Performed By: #### A 1C #### [facility] [address] [address] [address] Braulio Fritz Cholesterol.total/C holesterol in HDL [Mass ratio] 3.5 {ratio} Normal [facility] Comment on above: Performed By: #### A 1C #### [facility] [address] [address] [address] Braulio Fritz HDL NORMAL > or = 60 mg/dl - LO W CARDIOVASCULAR RISK <40 mg/dl - HIGH CARDIOVASCULAR RISK Normal [facility] Comment on above: Performed By: #### A 1C #### [facility] [address] [place] [address] Dr. Braulio Fritz LDL CALC NORMAL SEE BELOW Normal [facility] Comment on above: Result Comment: <100 mg/dl OPTIMAL 100 - 129 mg/dl NEAR OR ABOVE OPTIMAL 130 - 159 mg/dl BORDERLINE HIGH 160 - 189 mg/dl HIGH >190 mg/dl VERY HIGH Performed By: #### A 1C #### [facility] [address] [place] [address] Dr. Braulio Fritz Triglyceride [Mass/Vol] 114 mg/dL Normal <=150 [facility] Comment on above: Performed By: #### A 1C #### [facility] [address] [address] [address] Braulio Fritz VLDL CALC 22.8 mg/dL Normal [facility] Comment on above: Performed By: #### A 1C #### [facility] [address] [place] [address] Dr. Braulio Fritz PROF 14(COMP METB)on 022 Albumin [Mass/Vol] 3.5 g/dL Normal 3.4-5.0 [facility] Comment on above: Performed By: #### A 1C #### [facility] [address] [place] [address] Dr. Braulio Fritz Albumin/Globulin [Mass ratio] 1.0 {ratio} Normal [facility] Comment on above: Performed By: #### A 1C #### [facility] [address] [place] [address] Dr. Braulio Fritz ALP [Catalytic activity/Vol] 115 U/L Normal 46-116 [facility] Comment on above: Performed By: #### A 1C #### [facility] [address] [place] [address] Dr. Braulio Fritz ALT [Catalytic activity/Vol] 29 U/L Normal 16-63 [facility] Comment on above: Performed By: #### A 1C #### [facility] [address] [place] [address] Dr. Braulio Fritz Anion gap [Moles/Vol] 10.9 mmol/L Normal [facility] Comment on above: Performed By: #### A 1C #### [facility] [address] [place] [address] Dr. Braulio Fritz AST [Catalytic activity/Vol] 23 U/L Normal 15-37 [facility] Comment on above: Performed By: #### A 1C #### [facility] [address] [place] [address] Dr. Braulio Fritz Bilirubin [Mass/Vol] 1.3 mg/dL Critically high 0.2-1.0 [facility] Comment on above: Performed By: #### A 1C #### [facility] [address] [place] [address] Dr. Braulio Fritz Calcium [Mass/Vol] 8.8 mg/dL Normal 8.5-10.1 [facility] Comment on above: Performed By: #### A 1C #### [facility] [address] [place] [address] Dr. Braulio Fritz Chloride [Moles/Vol] 106 mmol/L Normal 98-107 [facility] Comment on above: Performed By: #### A 1C #### [facility] [address] [place] [address] Dr. Braulio Fritz CO2 [Moles/Vol] 27.5 mmol/L Normal 21.0-32.0 [facility] Comment on above: Performed By: #### A 1C #### [facility] [address] [address] [address] Braulio Fritz Creatinine [Mass/Vol] 1.68 mg/dL Critically high 0.70-1.30 [facility] Comment on above: Performed By: #### A 1C #### [facility] [address] [address] [address] Braulio Fritz EGFR-AF GUYANESE 49 mL/min/1.73m2 Critically low >=60 [facility] Comment on above: Performed By: #### A 1C #### [facility] [address] [address] [address] Braulio Fritz EGFR-NON AF GUYANESE 40 mL/min/1.73m2 Critically low >=60 [facility] Comment on above: Performed By: #### A 1C #### [facility] [address] [address] [address] Braulio Fritz Globulin (S) [Mass/Vol] 3.6 g/dL Normal [facility] Comment on above: Performed By: #### A 1C #### [facility] [address] [address] [address] Braulio Fritz Glucose [Mass/Vol] 109 mg/dL Critically high 74-106 [facility] Comment on above: Performed By: #### A 1C #### [facility] [address] [address] [address] Braulio Fritz Potassium [Moles/Vol] 4.4 mmol/L Normal 3.5-5.1 [facility] Comment on above: Performed By: #### A 1C #### [facility] [address] [address] [address] Braulio Fritz Protein [Mass/Vol] 7.1 g/dL Normal 6.4-8.2 [facility] Comment on above: Performed By: #### A 1C #### [facility] [address] [address] [address] Braulio Fritz Sodium [Moles/Vol] 140 mmol/L Normal 136-145 [facility] Comment on above: Performed By: #### A 1C #### [facility] [address] [place] [address] Dr. Braulio Fritz Urea nitrogen [Mass/Vol] 24.0 mg/dL Critically high 7.0-18.0 [facility] Comment on above: Performed By: #### A 1C #### [facility] [address] [place] [address] Dr. Braulio Fritz Urea nitrogen/Creatinine [Mass ratio] 14.3 mg/mg Normal [facility] Comment on above: Performed By: #### A 1C #### [facility] [address] [place] [address] Dr. Braulio Fritz TSHon 04-10-2022 TSH 0.740 uIU/mL Normal 0.358-3.740 [facility] Comment on above: Performed By: #### A 1C #### [facility] [address] [place] [address] Dr. Braulio Fritz TSH RANGE SEE BELOW Normal [facility] Comment on above: Result Comment: <0.3 4 UIU/ml HYPERTHYROID 0.34-5.60 UIU/ml EUTHYROID >5.60 UIU/ml HYPOTHYROID Performed By: #### A 1C #### [facility] [address] [place] [address] Dr. Braulio Fritz VIT B12 AND FOLATEon 022 Cobalamin (Vitamin B12) [Mass/Vol] 547.0 pg/mL Normal 193.0-986.0 [facility] Comment on above: Performed By: #### B 12FOL, VITAD, PSASC, IRON #### [facility] [address] [place] [address] Dr. Braulio Fritz FOLATE 17.80 ng/mL Normal 8.60-58.90 [facility] Comment on above: Performed By: #### B 12FOL, VITAD, PSASC, IRON #### [facility] [address] [place] [address] Dr. Braulio Fritz VITAMIN D 25 OHon 04-10-2022 VIT D 25-OH 50.4 ng/mL Normal [facility] Comment on above: Performed By: #### B 12FOL, VITAD, PSASC, IRON #### [facility] [address] [place], [place] [address] Dr. Braulio Fritz VIT D RANGES SEE BELOW Normal [facility] Comment on above: Result Comment: <20 ng/mL Vit D deficient 20 - <30 ng/mL Vit D insufficient 30 - 100 ng/mL Vit D sufficient >100 ng/mL Potential Toxicity Performed By: #### B 12FOL, VITAD, PSASC, IRON #### [facility] [address] [place], [place] [address] Dr. Braulio Fritz XR CHEST 2 Von [...] by: RJ LEON Date: 2022-04-09 12:41 Normal [facility] SMALL JOINT/BURSA INJECTION AND/OR ASPIRATION: [...] fashion. The patient was prepped with alcohol. [facility] C REACTIVE PROTEINon 022 CRP [Mass/Vol] 11.2 mg/L High 0-10.0 [facility] Comment on above: Performed By: #### C REACT, ESR #### Testing performed at [address] [address] ESRon 11-27-2021 ESR (Bld) [Velocity] 27 mm/h High 0-20 [facility] Comment on above: Performed By: #### C REACT, ESR #### Testing performed at [address] [address] C REACTIVE PROTEINon 021 CRP [Mass/Vol] 6.9 mg/L 0 - 10.0 MG/L [facility] SEDIMENTATION RATE, AUTOMATE Don 10-29-2021 ESR (Bld) [Velocity] 33 mm/h High [facility] Interpretation and review of laboratory results Abnormal [facility] CBC, EDIF, PLATELETon 2019 ABSOLUTE BASOPHIL COUNT 0.1 10*3/uL 0 - 0.2 10*3/uL [facility] Basophils/100 WBC (Bld) 0.5 % 0 - 2 % [facility] Differential cell count method Nom (Bld) AUTO DIFF % [facility] Eosinophils (Bld) [#/Vol] 0.00 10*3/uL 0 - 0.7 10*3/uL [facility] Eosinophils/100 WBC (Bld) 0.1 % 0 - 11 % [facility] Erythrocyte distribution width (RBC) [Ratio] 16.4 % High 11.5 - 14.5 % [facility] Hematocrit (Bld) [Volume fraction] 34.0 % Low 42 - 52 % [facility] Hemoglobin (Bld) [Mass/Vol] 10.9 g/dL Low [facility] Interpretation and review of laboratory results Abnormal [facility] Lymphocytes (Bld) [#/Vol] 0.90 10*3/uL Low 1.2 - 3.4 10*3/uL [facility] Lymphocytes/100 WBC (Bld) 6.9 % Low 20 - 55 % [facility] MCH (RBC) [Entitic mass] 27.8 pg 26 - 35 PG [facility] MCHC (RBC) [Mass/Vol] 32.1 g/dL [facility] MCV (RBC) [Entitic vol] 86.4 fL [facility] Monocytes (Bld) [#/Vol] 0.9 10*3/uL High 0 - 0.7 10*3/uL [facility] Monocytes/100 WBC (Bld) 7.1 % 0 - 10 % [facility] Neutrophils (Bld) [#/Vol] 11.2 10*3/uL High 1.4 - 6.5 10*3/uL [facility] Neutrophils/100 WBC (Bld) 85.4 % High 37 - 75 % [facility] Platelet mean volume (Bld) [Entitic vol] 8.1 fL [facility] Platelets (Bld) [#/Vol] 247 10*3/uL 130 - 400 10*3/uL [facility] RBC (Bld) [#/Vol] 3.93 10*6/uL Low 4 - 6.1 10*6/uL [facility] WBC (Bld) [#/Vol] 13.1 10*3/uL High 3.6 - 11 10*3/uL [facility] REPEAT ABO/RH (D) TYPINGon 1 12-29-2019 ABO and Rh group Nom (Bld ) Positive [facility] 2 VIEWSon 10-28 IMPRESSION: Status p ost total knee arthroplasty revision with expected postoperative changes. [employer] EXAM: XR KNEE LEFT 2 VIEWS HISTORY: [...] the soft tissues with overlying skin elizabeth. [employer] User, Interfaces - 10/28/2020 3:18 PM EST [...] knee arthroplasty revision with expected postoperative changes. [employer] NUC WBC STUDYon 09-24-2020 IMPRESSION: Hyperemi a to the left knee with no definite evidence for infected prosthesis. [facility] NUCLEAR MEDICINE TOT AL BODY BONE [...] blood cell uptake in the right knee. [employer] User, Interfaces - 09/24/2020 5:04 PM EST [...] with no definite evidence for infected prosthesis. [employer] NUC 3 PHASE LIMITED BONE SCA Non 09-19-2020 IMPRESSION: Findings concerning for loosening or infection in the medial tibial plateau portion of the left knee prosthesis. No evidence of loosening or infection in the right knee. [facility] NUCLEAR MEDICINE TRIPLE-PHASE BONE SCAN HISTORY: [...] or delayed uptake in the right knee. [employer] User, Interfaces - 09/19/2020 2:47 PM EDT [...] loosening or infection in the right knee. [employer] LARGE JOINT/BURSA INJECTION AND/OR ASPIRATION: L kneeon [...] complications The patient was prepped with Chloraprep. [employer] CNOVon 02-23-2019 CNOV Office Visit (PULMMN ) LÓPEZ CORTÉS ([id number]) 1950 M Date Time Provider Department 02/23/19 [...] local physician and understands to return to [facility] if there is evidence of functional decline. [...] today's CT scan. Referring Provider: GADIEL RHODES [[id number]] Allergies As of Date: 02/23/2019 Noted Allergy [...] Status:Closed by GADIEL RHODES MD on 02/24/[address] [facility] [address] CHEST WO IVCONon 02-24-20 19 [...] lesion. Upper abdomen: Unchanged. IMPRESSION: STABLE CT. Acid Painter: PSCRadha Transcribe Date/Time: Feb 23 2019 4:08P Dictated by : LAURA DAVIDSON MD This examination was interpreted and the report reviewed and electronically signed by: LAURA DAVIDSON MD on Feb 23 2019 4:30PM EST [id number] Normal [facility] PROGRESSon 02-23-2019 Protein mass conc HNO ID: [id number] Author: Gadiel Rhodes Service: ? Author Type: [...] local physician and understands to return to [facility] if there is evidence of functional decline. No need for additional CT imaging at this time. 2. Lung nodules. 10 mm subpleural nodule incidentally noted on prior chest CT. Has smoking history but discontinued 35 years ago. Nodule now docimented to be stable since 10/2017. No need for additional surveillance. I will see Mr. Cortés back in 6 months. Normal [facility] Protein mass conc HNO ID: [id number] Author: ALEX Kat (Ct) Service: Radiology Author Type: Clinical Door Liner Type: Progress Notes Filed: 02/23/2019 12:42 PM [...] 23, 2019 12:42 PM Normal [facility] CNOVon 10-16-2018 CNOV Office Visit (PULMMN ) LÓPEZ CORTÉS ([id number]) 1950 M Date Time Provider Department 10/16/18 [...] Diagnosis:Lung nodules [R91.8] Order(s):CT CHEST WO FERNANDEZON [[id number]] Order #: [id number] FUTURE Prescriptions as of 10/16/2018 Sig: PANTOPRAZOLE [...] RHODES MD on 10/22/18 Normal [facility] PROGRESSon 10-16-2018 Protein mass conc HNO ID: [id number] Author: Gadiel Rhodes Service: (none) Author Type: [...] back in 6 months. 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 There are no occupational exposures. There is [...] No history of dysuria, frequency or incontinence. TRAVEL ATTENDANTS: NA MUSCULOSKELETAL: Negative for joint pain or [...] MD 04/16/2018 10:48 PM Signed . Respiratory Cool Note Mr. Cortés is a 68 year old male with recent sternal fracture who presents to the [facility] Respiratory Cool for evaluation of Concern for interstitial lung disease. Consultation requested by Dr. 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 Mold: No significant exposure. [...] personally reviewed by me Data Reviewed from [facility] (in addition to that noted in [...] Pre ? ? % ? Date ? [id number] ? Time ?02:22PM ? Height ?169.1 ? [...] management of GERD/heartburn ? Will be seeing cut plug packer (consider nasal probe study/pH study ? Recommend [...] Lisa Hazel MD Internal Medicine PGY-III Pager [phone] Attending Addendum: I have personally interviewed and [...] Rhodes M.D. Chair, Department of Pulmonary Medicine [facility] Referring Provider: SCOTT PEREZ [[id number]] Allergies As of Date: 03/20/2018 Noted Allergy Reaction SULFA (SULFONAMIDE ANTIBIOTICS) 03/20/2018 17 - Unknown Comments: Reaction as a kid - unsure Date Reviewed: 03/20/2018 Reviewed by: Jemal (Rn) ANOOP Wilks - Fully Assessed Reason for Visit: Consult [502] Primary Visit Diagnosis:ILD (interstitial lung disease) (HCC) [J84.9] Other Visit Diagnosis:Multiple lung nodules [R91.8] Order(s):SPIROMETRY BASELINE ONLY [[id number]] Order #: [id number] FUTURE LUNG DIFFUSION CAPACITY (DLCO) [[id number]] Order #: [id number] FUTURE Prescriptions as of 03/20/2018 Sig: PANTOPRAZOLE [...] March 20, 2018 Scott Perez MD (via [employer]) Re: López Allenney ( 1950) Dear Dr. 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 There are no occupational exposures. There is [...] No history of dysuria, frequency or incontinence. TRAVEL ATTENDANTS: NA MUSCULOSKELETAL: Negative for joint pain or [...] M.D. Chair, Department of Pulmonary Medicine Respiratory Cool [facility] Cc: Dr. Tess Fuentes [address] [place] [address] Dr. Francis Giron [address] [facility] [place] [address] Mr. López Cortés [address] [place] [address] Encounter Status:Closed by GADIEL RHODES MD on 04/16/18 Normal [facility] PROGRESSon 03-20-2018 Protein mass conc HNO ID: [id number] Author: Gadiel Rhodes Service: (none) Author Type: Physician Type: Progress Notes Filed: 04/16/2018 10:48 PM Note Text: . Respiratory Cool Note Mr. 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 Mold: No significant exposure. [...] personally reviewed by me Data Reviewed from [facility] (in addition to that noted in [...] Pre ? ? % ? Date ? [id number] ? Time ?02:22PM ? Height ?169.1 ? [...] management of GERD/heartburn ? Will be seeing cut plug packer (consider nasal probe study/pH study ? Recommend [...] Lisa Hazel MD Internal Medicine PGY-III Pager [phone] Attending Addendum: I have personally interviewed and [...] Rhodes M.D. 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 There are no occupational exposures. There is [...] No history of dysuria, frequency or incontinence. TRAVEL ATTENDANTS: NA MUSCULOSKELETAL: Negative for joint pain or [...] back in 6 months. Normal [facility] CT ABDOMEN PELVIS W IV CONTR [...] by:KENDELL Murrelligned by:Christiano Hansen MD10/25/17Final result Normal [facility] CT CHEST W CONTRASTon 2016 CT CHEST [...] by:KENDELL Murrelligned by:Christiano Hansen MD10/25/17Final result Normal [facility] CBC with Diffon 10-25-2017 Abs. Basophil 0.00 k/uL Normal 0.0-0.2 [facility] Comment on above: Performed By: #### C DP, CP ####[address] [address] Abs.Neutrophil (Seg) 16.04 k/uL High 1.3-9.1 [facility] Comment on above: Performed By: #### C DP, CP ####[address] [address] Basophils/100 WBC Auto (Bld) 0 % Normal 0-2 [facility] Comment on above: Performed By: #### C DP, CP ####[address] [address] Blood morphology Normal Normal [facility] Comment on above: Result Comment: Perf ormed at [facility] [address] [place] [address] Performed By: #### C DP, CP ####[facility] [facility] [place] [address] Eosinophils 0.00 10*3/uL Normal 0.0-0.4 [facility] Comment on above: Performed By: #### C DP, CP ####[facility] [facility] [place] [address] Eosinophils/100 leukocytes 0 % Normal 0-4 [facility] Comment on above: Performed By: #### C DP, CP ####[facility] [place] [address] Lymphocytes 0.96 10*3/uL Low 1.0-4.8 [facility] Comment on above: Performed By: #### C DP, CP ####[facility] [facility] [place] [address] Lymphocytes/100 leukocytes 5 % Low 24-44 [facility] Comment on above: Performed By: #### C DP, CP ####[facility] [facility] [place] [address] Monocytes 2.10 10*3/uL High 0.1-1.3 [facility] Comment on above: Performed By: #### C DP, CP ####[facility] [facility] [place] [address] Monocytes/100 leukocytes 11 % High 1-7 [facility] Comment on above: Performed By: #### C DP, CP ####[facility] [place] [address] Neutrophil (Seg) 84 % High 36-66 [facility] Comment on above: Performed By: #### C DP, CP ####[facility] [place] [address] Erythrocyte distribution width Auto Ratio (RBC) 14.1 % Normal 11.5-14.9 [facility] Comment on above: Performed By: #### C DP, CP ####[address] [address] [place] [address] Erythrocytes (RBC) 5.37 10*6/uL Normal 4.5-5.9 [facility] Comment on above: Performed By: #### C DP, CP ####[address] [address] [place] [address] Hematocrit (HCT) 50.7 % Normal 41-53 [facility] Comment on above: Performed By: #### C DP, CP ####[facility] [place] [address] Hemoglobin mass conc (Bld) 16.8 g/dL Normal 13.5-17.5 [facility] Comment on above: Performed By: #### C DP, CP ####[facility] [place] [address] MCH 31.2 pg Normal 26-34 [facility] Comment on above: Performed By: #### C DP, CP ####[address] [address] [place] [address] MCHC mass conc (RBC) 33.1 g/dL Normal 31-37 [facility] Comment on above: Performed By: #### C DP, CP ####[address] [address] [place] [address] MCV 94.4 fL Normal 80-100 [facility] Comment on above: Performed By: #### C DP, CP ####[address] [address] [place] [address] Platelet mean volume (PMV) 9.0 fL Normal 6.0-12.0 [facility] Comment on above: Performed By: #### C DP, CP ####[facility] [facility] [place] [address] Platelets 227 10*3/uL Normal 150-450 [facility] Comment on above: Performed By: #### C DP, CP ####[facility] [facility] [place] [address] WBC (Leukocytes) 19.1 10*3/uL High 3.5-11.0 [facility] Comment on above: Performed By: #### C DP, CP ####[facility] [place] [address] Auto Diff Performed NOT REPORTED Normal [facility] Comment on above: Performed By: #### C DP, CP ####[facility] [place] [address] Erythrocyte morphology NOT REPORTED Normal [facility] Comment on above: Performed By: #### C DP, CP ####[facility] [place] [address] Granulocytes/100 WBC (Bld) NOT REPORTED Normal 0.00-0.30 [facility] Comment on above: Performed By: #### C DP, CP ####[facility] [facility] [place] [address] Immature granulocytes #/vol (Bld) NOT REPORTED Normal 0 [facility] Comment on above: Performed By: #### C DP, CP ####[facility] [place] [address] Platelets NOT REPORTED Normal [facility] Comment on above: Performed By: #### C DP, CP ####[address] [address] WBC Morphology NOT REPORTED Normal [facility] Comment on above: Performed By: #### C DP, CP ####[facility] [facility] [place] [address] Comp Metabolic Profon 2016 (cont.) Normal [facility] Comment on above: Result Comment: Aver age GFR for 60-69 years old: 85 mL/min/1.73sq mChronic Kidney Disease: <60 mL/min/1.73sq mKidney failure: <15 mL/min/1.73sq meGFR calculated using average adult body mass. Additional eGFR calculator available at:http://[email or web address]/multiple_crcl_2012.htmPerformed at [facility] [address] [place] [address] Performed By: #### C DP, CP ####[facility] [place] [address] Alanine aminotransferase (ALT) 35 U/L Normal 5-41 [facility] Comment on above: Performed By: #### C DP, CP ####[facility] [place] [address] Albumin 4.4 g/dL Normal 3.5-5.2 [facility] Comment on above: Performed By: #### C DP, CP ####[facility] [facility] [place] [address] Alkaline Phos 128 U/L Normal 40-129 [facility] Comment on above: Performed By: #### C DP, CP ####[facility] [place] [address] Anion gap 14 mmol/L Normal 9-17 [facility] Comment on above: Performed By: #### C DP, CP ####[address] [place] [address] Aspartate aminotransferase (AST) 50 U/L High <40 [facility] Comment on above: Performed By: #### C DP, CP ####[facility] [place] [address].[place] [address] Bilirubin Ql (U) 1.12 mg/dL Normal 0.3-1.2 [facility] Comment on above: Performed By: #### C DP, CP ####[address] [place] [address] Calcium 9.2 mg/dL Normal 8.6-10.4 [facility] Comment on above: Performed By: #### C DP, CP ####[address] [place] [address] Chloride 107 mmol/L Normal 98-107 [facility] Comment on above: Performed By: #### C DP, CP ####[address] [address] CO2 23 mmol/L Normal 20-31 [facility] Comment on above: Performed By: #### C DP, CP ####[address] [place] [address] Creatinine 1.30 mg/dL High 0.70-1.20 [facility] Comment on above: Performed By: #### C DP, CP ####[address] [place] [address] eGFR (non-black) 55 mL/min/{1.73_m2} Low >60 [facility] Comment on above: Performed By: #### C DP, CP ####[address] [address] eGFR (non-black) mL/min/{1.73_m2} Normal >60 [facility] Comment on above: Performed By: #### C DP, CP ####[address] [place] [address] Glucose mass conc 111 mg/dL High 70-99 [facility] Comment on above: Performed By: #### C DP, CP ####[facility] [place] [address] Potassium molar conc 4.3 mmol/L Normal 3.7-5.3 [facility] Comment on above: Performed By: #### C DP, CP ####[facility] [facility] [place] [address] Protein 7.3 g/dL Normal 6.4-8.3 [facility] Comment on above: Performed By: #### C DP, CP ####[facility] [place] [address].[place] [address] Sodium 144 mmol/L Normal 135-144 [facility] Comment on above: Performed By: #### C DP, CP ####[facility] [place] [address] [place] [address] Urea nitrogen 24 mg/dL High 8-23 [facility] Comment on above: Performed By: #### C DP, CP ####[facility] [place] [address] [place] [address] Albumin/Globulin Ratio NOT REPORTED Normal 1.0-2.5 [facility] Comment on above: Performed By: #### C DP, CP ####[facility] [place] [address] BUN/CRE Ratio NOT REPORTED Normal 9-20 [facility] Comment on above: Performed By: #### C DP, CP ####[facility] [place] [address] [place] [address] Staging: NOT REPORTED Normal [facility] Comment on above: Performed By: #### C DP, CP ####[facility] [place] [address] Vital Signs Date Time Vital Sign Value Performing Clinician Facility 08-14-2024 14:41-0400 Diastolic blood pressure 80 mm[Hg] Obey NILL [facility] 08-14-2024 14:41-0400 Heart rate 68 /min Obey NILL [facility] 08-14-2024 14:41-0400 Respiratory rate 16 /min Obey NILL [facility] 08-14-2024 14:41-0400 Systolic blood pressure 118 mm[Hg] Obey NILL [facility] 01-31-2024 08:42-0400 Blood Pressure Location Obey NILL [facility] 01-31-2024 08:42-0400 Diastolic blood pressure 82 mm[Hg] Obey NILL [facility] 01-31-2024 08:42-0400 Heart rate 83 /min Obey NILL [facility] 01-31-2024 08:42-0400 Respiratory rate 16 /min Obey NILL [facility] 01-31-2024 08:42-0400 Systolic blood pressure 120 mm[Hg] Obey NILL [facility] 11-23-2023 08:25-0500 Body height 172.7 cm Bhavana Addison APRNAddThis Work Phone: [employer] [facility] 11-23-2023 08:25-0500 Body mass index (BMI) [Ratio] 34.21 kg/m2 Bhavana Addison APRNAddThis Work Phone: [facility] 11-23-2023 08:25-0500 Body weight 102.06 kg Bhavana Addison APRN-ED TECH Work Phone: [facility] 05-16-2023 09:32-0400 Blood Pressure Location Darwin RICHMOND [facility] 05-16-2023 09:32-0400 Diastolic blood pressure 75 mm[Hg] Darwin RICHMOND [facility] 05-16-2023 09:32-0400 Heart rate 75 /min Darwin RICHMOND [facility] 05-16-2023 09:32-0400 Respiratory rate 16 /min Darwin RICHMOND [facility] 05-16-2023 09:32-0400 Systolic blood pressure 129 mm[Hg] Darwin RICHMOND [facility] 06-16-2022 10:13-0400 Body height 172.7 cm Barak Hebert MD Work Phone: [facility] 06-16-2022 10:13-0400 Body mass index (BMI) [Ratio] 35.28 kg/m2 Barak Hebert MD Work Phone: [facility] 06-16-2022 10:13-0400 Body weight 105.23 kg Barak Hebert MD Work Phone: [facility] 05-26-2022 07:57-0400 Body height 172.7 cm Gadiel Floyd MD Work Phone: [facility] 05-26-2022 07:57-0400 Body mass index (BMI) [Ratio] 35.28 kg/m2 Gadiel Floyd MD Work Phone: [facility] 05-26-2022 07:57-0400 Body temperature 97.7 [degF] Gadiel Floyd MD Work Phone: [facility] 05-26-2022 07:57-0400 Body weight 105.23 kg Gadiel Floyd MD Work Phone: [facility] 02-17-2022 12:58-0400 Body height 172.7 cm Gadiel Floyd MD Work Phone: [facility] 02-17-2022 12:58-0400 Body mass index (BMI) [Ratio] 36.81 kg/m2 Gadiel Floyd MD Work Phone: [facility] 02-17-2022 12:58-0400 Body temperature 98.2 [degF] Gadiel Floyd MD Work Phone: [facility] 02-17-2022 12:58-0400 Body weight 109.8 kg Gadiel Floyd MD Work Phone: [facility] 10-29-2021 11:09-0500 Body height 172.7 cm Bhavana Addison SECOND [employer]LER-ED TECH Work Phone: [facility] 10-29-2021 11:09-0500 Body mass index (BMI) [Ratio] 36.49 kg/m2 Bhavana Addison [employer]-ED TECH Work Phone: [facility] 10-29-2021 11:09-0500 Body temperature 97.2 [degF] Bhavanaroger Addison SECOND [employer]LER-ED TECH Work Phone: [facility] 10-29-2021 11:09-0500 Body weight 108.86 kg Bhavana Nila SECOND [employer]ER-ED TECH Work Phone: [facility] 11-19-2020 11:08-0500 BMI (Body Mass Index) 34.21 kg/m2 [facility] 11-19-2020 11:08-0500 Body Temperature 97.59 [degF] [facility] 11-19-2020 11:08-0500 Body weight 102.06 kg [facility] 11-19-2020 11:08-0500 Height 172.7 cm [facility] 10-29-2020 15:11-0500 BP Diastolic 72 mm[Hg] [facility] 10-29-2020 15:11-0500 BP Systolic 148 mm[Hg] [facility] 10-29-2020 15:11-0500 Pulse (Heart Rate) 74 /min [facility] 10-29-2020 15:11-0500 Pulse Oximetry 100 % [facility] 10-29-2020 15:11-0500 Respiratory Rate 16 /min [facility] 10-29-2020 08:00-0500 Body Temperature 97.39 [degF] [facility] 10-28-2020 15:15-0500 BMI (Body Mass Index) 32.23 kg/m2 [facility] 10-28-2020 15:15-0500 Body weight 96.16 kg [facility] 10-28-2020 15:15-0500 Height 172.7 cm [facility] 09-11-2020 13:55-0400 BMI (Body Mass Index) 31.96 kg/m2 [facility] 09-11-2020 13:55-0400 Body Temperature 97.11 [degF] [facility] 09-11-2020 13:55-0400 Body weight 95.35 kg [facility] 09-11-2020 13:55-0400 Height 172.7 cm [facility] Encounters Encounter Date Encounter Type Care Provider Facility Start: 08-14-2024 End: 08-14-2024 ambulatory Obey ALAS Facility: [facility] Start: 08-14-2024 End: 08-14-2024 Patient encounter procedure Obey ALAS [facility] Start: 06-05-2024 End: 06-05-2024 ambulatory SOLOMON IGNACIO Not Available Start: 03-06-2024 End: 03-06-2024 ambulatory Obey ALAS Facility: [facility] Start: 03-06-2024 End: 03-06-2024 Patient encounter procedure Obey ALAS [facility] Nill/Said [employer] Start: 02-28-2024 End: 02-28-2024 ambulatory Obey R NILL Facility: [facility] Start: 02-28-2024 End: 02-28-2024 Patient encounter procedure Obey R NILL General Surgery Nill/Said [employer] [facility] Start: 01-31-2024 End: 01-31-2024 ambulatory Obey R NILL Facility: [facility] Start: 01-31-2024 End: 01-31-2024 Patient encounter procedure Obey R NILL [facility] [place] Start: 01-20-2024 ambulatory Obey VALLESL Facility:[facility] Start: 11-23-2023 End: 11-23-2023 Office outpatient visit 15 minutes Bhavana FLORES Work Phone: [facility] Comment on above: Hx of total knee art hroplasty, left (Primary Dx) Start: 11-23-2023 End: 11-23-2023 Subsequent hospital visit by physician Bhavana FLORES Work Phone: [facility] Start: 05-16-2023 End: 05-16-2023 Patient encounter procedure Darwin RICHMOND [facility] Start: 01-27-2023 End: 01-28-[address] TESS FUENTES . 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 Facility:[facility] Start: 04-13-2022 End: 04-14-[address] TESS FUENTES . Facility:[facility] Start: 04-10-2022 End: 04-11-[address] TESS FUENTES . Facility: Start: 04-09-2022 End: 04-10-[address] TESS FUENTES . Facility: Start: 02-17-2022 ambulatory [facility] Start: 02-17-2022 End: 02-17-2022 Office outpatient new 30 minutes Gadiel Floyd MD Work Phone: [facility] Comment on above: Bilateral thumb pain (Primary Dx); Primary osteoarthritis of first carpometacarpal joint of left hand Start: 02-17-2022 End: 02-17-2022 Subsequent hospital visit by physician Gadiel Floyd MD Work Phone: [facility] Start: 12-17-2021 ambulatory BARAK HEBERT [facility] Start: 12-17-2021 End: 12-17-2021 Office outpatient visit 15 minutes Barak Hebert MD Work Phone: [facility] Comment on above: Bilateral thumb pain (Primary Dx); Left knee pain, unspecified chronicity Start: 11-27-2021 ambulatory [facility] Start: 10-29-2021 End: 10-29-2021 Postop follow up visit related to original px Barak Hebert MD Work Phone: [facility] Comment on above: Hx of total knee art hroplasty, left (Primary Dx) Start: 10-29-2021 End: 10-29-2021 Subsequent hospital visit by physician Bhavana FLORES Work Phone: [facility] Start: 02-26-2021 End: 02-26-2021 Subsequent hospital visit by physician Barak Hebert Work Phone: [facility] Start: 11-19-2020 End: 11-19-2020 Postop follow up visit related to original px Kaila Richmond Work Phone: [facility] Comment on above: Hx of total knee art hroplasty, left (Primary Dx); Postoperative pain of knee Start: 11-19-2020 End: 11-19-2020 Subsequent hospital visit by physician Kaila Richmond Work Phone: [facility] Start: 10-28-2020 End: 10-29-2020 Evaluation and management of inpatient Barak Hebert Work Phone: [facility] Comment on above: Mechanical loosening of internal left knee prosthetic joint Start: 09-24-2020 End: 09-24-2020 Subsequent hospital visit by physician Barak Hebert Work Phone: [facility] Comment on above: Arrived Start: 09-23-2020 End: 09-23-2020 Subsequent hospital visit by physician Barak Hebert Work Phone: [facility] Comment on above: Arrived Start: 09-19-2020 End: 09-19-2020 Subsequent hospital visit by physician Barak Hebert Work Phone: [facility] Comment on above: Arrived Start: 09-11-2020 End: 09-11-2020 Subsequent hospital visit by physician Barak Hebert Work Phone: [facility] Start: 09-11-2020 End: 09-11-2020 Office outpatient new 45 minutes Barak Hebert Work Phone: [facility] Comment on above: Left knee pain, unsp ecified chronicity (Primary Dx); Pain in prosthetic joint, initial encounter Start: 02-23-2019 End: 02-26-2019 Patient encounter procedure GADIEL RHODES [facility] Start: 10-16-2018 End: 10-23-2018 Patient encounter procedure GADIEL RHODES [facility] Start: 03-20-2018 End: 04-19-2018 Patient encounter procedure GADIEL RHODES [facility] Start: 11-23-2017 End: 11-24-2017 Ambulatory DEFAULT PHYSICIAN Facility:[facility] Start: 10-25-2017 End: 10-26-2017 Emergency department patient visit ROBERTO GRUBER [facility] Procedures Date Procedure Procedure Detail Performing Clinician Start: 01-27-[address] SHIRLEY FUENTES . Comment on above: Performed By: #### P SASC, VITAD #### [facility] [address] [address] [address] Braulio Fritz Start: 04-10-[address] SHIRLEY FUENTES . Comment on above: Performed By: #### B 12FOL, VITAD, PSASC, IRON #### [facility] Laboratory [address] [address] [address] Braulio Fritz Start: 02-17-2022 Arthrocentesis aspir &/inj small jt/bursa w/o us Irene Parker Start: 10-29-2020 Complete blood count with white cell differential, automated [email or web address] Work Phone: Start: 10-28-2020 X-ray of left knee Telly Phone: Start: 10-28-2020 End: 10-28-2020 Cul bact roberto aerobic isol xcpt ur blood/stool E96 Phone: Start: 10-28-2020 End: 10-28-2020 Culture bacterial any source anaerobic iso&id E96 Phone: Start: 10-28-2020 End: 10-28-2020 Fungus identified in Unspecified specimen by Culture E96 Phone: Start: 10-28-2020 End: 10-28-2020 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 specific culture E96 Phone: Start: 10-28-2020 Bacteria identified in Body fluid by Culture E96 Phone: Start: 10-28-2020 End: 10-28-2020 Revj tot knee arthrp fem&entire tibial compone Barak Hebert Work Phone: Start: 10-28-2020 Blood group typing, RH phenotyping Barak Hebert Work Phone: Start: 09-24-2020 Nuclear medicine procedure Braak Hebert Work Phone: Start: 09-19-2020 Radioisotope scan [...] 07-22-2023 Influenza vaccination INFLUENZA VACC INE (#1) [facility] Start: 08-25-2022 End: 08-25-2022 Patient encounter procedure 08/25/2022 Office Visit Orthopaedics Gadiel Floyd MD [address] [place] [address] [facility] Start: 07-22-2022 Influenza vaccination INFLUENZA VACC INE (#1) [facility] Start: 06-16-2022 End: 06-16-2022 Patient encounter procedure 06/16/2022 Office Visit Orthopaedics Barak Hebert MD [address] [place] [address] [facility] Start: 05-26-2022 End: 05-26-2022 Patient encounter procedure 05/26/2022 Office Visit Orthopaedics Gadiel Floyd MD [address] [place] [address] [facility] Start: 04-19-2022 COVID-19 VACCINE (2 - Pfizer series) COVID-19 VACCINE (2 - Pfizer series) [facility] Start: 02-17-2022 End: 02-11-2023 XR Thumb - left Views [facility] Work Phone: Comment on above: 1 Occurrences starti ng 02/17/2022 until 02/17/2022 Expected: 02/17/2022 , Expires: 02/11/2023 Start: 02-17-2022 End: 02-11-2023 XR Thumb - right Views [facility] Work Phone: Comment on above: 1 Occurrences starti ng 02/17/2022 until 02/17/2022 Expected: 02/17/2022 , Expires: 02/11/2023 Start: 02-17-2022 End: 02-17-2022 Patient encounter procedure 02/17/2022 Office Visit Orthopaedics Gadiel Floyd MD [address] [place] [address] [facility] Start: 10-29-2021 End: 10-29-2021 Office Visit 10/29/2021 Office Visit Orthopaedics Bhavana Addison, SECOND BUTLER-ED TECH [address] [place] [address], [place] [address] [phone] [facility] Start: 07-22-2021 Influenza vaccination A [facility] Start: 02-19-2021 End: 02-19-2021 Office Visit 02/19/2021 Office Visit Orthopaedics Barak Hebert MD [address] [facility] [place] [address] [phone] [facility] Start: 11-19-2020 End: 11-19-2020 Office Visit 11/19/2020 Office Visit Orthopaedics Kaila Richmond PA-C [address] [place] [address] [phone] [facility] Start: 10-28-2020 End: 10-28-2020 Hospital Encounter [facility] Periop Comment on above: Mechanical loosening of internal left knee prosthetic joint, initial encounter REVISION ARTHROPLAST Y KNEE left Start: 10-02-2020 End: 10-02-2020 Pre-Operative Nurse Assessment 10/02/2020 Pre-Operative Nurse Assessment Internal Medicine [facility] Pre Admission Start: 09-24-2020 Hospital Encounter 09/24/2020 Hospital Encounter Nuclear Medicine Barak Hebert MD [address] [place] [address] [phone] [facility] Nuclear Medicine Start: 09-23-2020 End: 09-23-2020 Appointment 09/23/2020 Appointment Nuclear Medicine Barak Hebert MD [address] [place] [address] [phone] [facility] Nuclear Medicine Start: 09-19-2020 End: 09-19-2020 Hospital Encounter [facility] Nuclea r Medicine Start: 09-11-2020 End: 09-11-2021 Nuclear medicine imaging procedure NUC BONE MARROW LIMITED AREA Imaging Routine Pain in prosthetic joint, initial encounter Expected: 09/11/2020, Expires: 09/11/2021 [facility] Comment on above: Expected: 09/11/2020 , Expires: 09/11/2021 Start: 09-11-2020 End: 09-11-2021 Nuclear medicine procedure NUC WBC STUDY Imaging Routine Pain in prosthetic joint, initial encounter Expected: 09/11/2020, Expires: 09/11/2021 [facility] Comment on above: Expected: 09/11/2020 , Expires: 09/11/2021 Start: 09-11-2020 End: 09-11-2021 Radioisotope scan of bone NUC BONE SCAN WHOLE BODY Imaging Routine Pain in prosthetic joint, initial encounter Expected: 09/11/2020, Expires: 09/11/2021 [employer] [facility] Comment on above: Expected: 09/11/2020 , Expires: 09/11/2021 Start: 08-21-2018 Pneumococcal vaccination PNEUM OCOCCAL VACCINE SERIES (2 - PCV) [facility] Start: 01-25-2016 Abdominal aortic aneurysm screening ABDOMINAL AORTIC ANEURYSM HIGH RISK SCREEN [facility] Start: 01-25-2016 Pneumococcal vaccination [facility] Start: 2001 Colonoscopy COLORECTAL CAN CER SCREENING DISCUSSION [facility] Start: 2001 Prostate specific antigen measurement PROSTATE CANCER SCREENING DISCUSSION [facility] Start: 2001 Zoster vaccine hzv l preet for subcutaneous use ZOSTER (SHINGLES) VACCINE (1 of 2) [facility] Start: 01-25-1996 Colonoscopy COLORECTAL CAN CER SCREENING DISCUSSION [facility] Start: 01-25-1996 Screening for malign ant neoplasm of colon COLORECTAL CANCER SCREENING DISCUSSION [facility] Start: 1991 Fasting lipid profile LIPID SCREENIN G [facility] Start: 1991 Lipid panel LIPID SCREENING [facility] Start: 1970 Third diphtheria, tetanus and acellular pertussis (DTaP) vaccination TDAP (ADULT) [facility] Start: 1969 Tetanus vaccination TETANUS [facility] Start: 1967 COVID-19 VACCINE (1) COVID-19 VACCIN E (1) [facility] Start: 1963 COVID-19 VACCINE (1) COVID-19 VACCIN E (1) [facility] Start: 01-25-1956 COVID-19 VACCINE (1) COVID-19 VACCIN E (1) [facility] Start: 1950 Hepatitis C antibody , confirmatory test HEPATITIS C VIRUS SCREENING [facility] Start: 1950 Hepatitis C screening HEPATITI S C VIRUS SCREENING [facility] Start: 1950 Tetanus vaccination TETANUS [facility] ANAEROBE CULTURE [facility] Comment on above: Release Upon Orderin g for 1 Occurrences starting 10/28/2020 Bacteria identified Cx Nom (Body fld) BODY FLUID CULTURE AND DIRECT SMEAR Microbiology Routine 10/28/2020 12:35 PM EST [facility] Bacteria identified Cx Nom (Unsp spec) BACTERIAL CULTURE AND DIRECT SMEAR, LESION, TISSUE, DEVICE Microbiology Routine Mechanical loosening of internal left knee prosthetic joint, initial encounter Release Upon Ordering for 1 Occurrences starting 10/28/2020 [facility] Comment on above: Release Upon Orderin g for 1 Occurrences starting 10/28/2020 Fungus identified Cx Nom (Unsp spec) [facility] Comment on above: Release Upon Orderin g for 1 Occurrences starting 10/28/2020 Mycobacterium sp identified Org specific cx Nom (Tiss) ACID FAST CULTURE, TISSUE Microbiology Routine Mechanical loosening of internal left knee prosthetic joint, initial encounter Release Upon Ordering for 1 Occurrences starting 10/28/2020 [facility] Comment on above: Release Upon Orderin g for 1 Occurrences starting 10/28/2020 Mycobacterium sp identified Org specific cx Nom (Unsp spec) [facility] End: 09-23-2020 Nuclear medicine imaging procedure NUC BONE MARROW LIMITED AREA Imaging Routine Pain in prosthetic joint, initial encounter 1 Occurrences starting 09/23/2020 until 09/23/2020 [facility] Comment on above: 1 Occurrences starti ng 09/23/2020 until 09/23/2020 Nuclear medicine marycarmen ging procedure NUC BONE MARROW LIMITED AREA Imaging Routine Pain in prosthetic joint, initial encounter 09/23/2020 12:09 PM [facility] End: 09-23-2020 Nuclear medicine procedure NUC WBC STUDY Imaging Routine Pain in prosthetic joint, initial encounter 1 Occurrences starting 09/23/2020 until 09/23/2020 [facility] Comment on above: 1 Occurrences starti ng 09/23/2020 until 09/23/2020 Nuclear medicine procedure NUC WBC STUDY Imaging Routine Pain in prosthetic joint, initial encounter 09/23/2020 6:01 AM [facility] Radiography for bone length studies [facility] TISSUE CULTURE [facility] X-ray of left knee [facility] X-ray of left knee XR KNEE LEFT 3 VIEWS Imaging Routine Hx of total knee arthroplasty, left 10/29/2021 10:55 AM [facility] XR Knee - left 3 Views XR KNEE L EFT 3 VIEWS Imaging Routine History of revision of total replacement of left knee joint [facility]/16[facility]2022 [facility] [facility] - left 3 Views XR KNEE L EFT 3 VIEWS Imaging Routine Hx of total knee arthroplasty, left 11/23/2023 8:19 AM [facility] Immunizations Immunization Date Immunization Notes Care Provider Fa sam 08-21-2023 influenza virus vacc ine, unspecified formulation Obey ALAS [facility] [place] 09-24-2022 SARS-CoV-2 (COVID-19 ) [id number] Darwin RICHMOND [facility] 08-31-2022 influenza virus vacc ine, unspecified formulation Darwin RICHMOND [facility] 03-29-2022 SARS-CoV-2 mRNA (dutcqolahzl-uwib-nbidaf e) vaccine Darwin RICHMOND [facility] 09-21-2021 SARS-CoV-2 (COVID-19 ) Ad26 vaccine, recombinant Darwin RICHMOND [facility] 09-13-2021 SARS-CoV-2 (COVID-19 ) mRNA-1273 vaccine Darwin RICHMOND [facility] 02-19-2021 SARS-CoV-2 (COVID-19 ) Ad26 vaccine, recombinant Darwin RICHMOND [facility] 02-04-2021 SARS-CoV-2 (COVID-19 ) mRNA-1273 vaccine aDrwin RICHMOND [facility] 01-19-2021 SARS-CoV-2 (COVID-19 ) Ad26 vaccine, recombinant Darwin RICHMOND [facility] 01-07-2021 SARS-CoV-2 (COVID-19 ) mRNA-1273 vaccine Darwin RICHMOND [facility] 09-03-2020 influenza virus vacc ine, unspecified formulation Bhavana Addison APRN-ED TECH Work Phone: [facility] 09-04-2019 influenza virus vacc ine, unspecified formulation Darwin RICHMOND [facility] 08-22-2018 influenza virus vacc ine, unspecified formulation Darwin RICHMOND [facility] 08-24-2017 influenza virus vacc ine, unspecified formulation Darwin RICHMOND [facility] 08-21-2017 pneumococcal polysaccharide vaccine, 23 valent Darwin RICHMOND [facility] 08-01-2017 pneumococcal polysaccharide vaccine, 23 valent Darwin RICHMOND [facility] 06-27-2017 pneumococcal polysaccharide vaccine, 23 valent Darwin RICHMOND [facility] 09-09-2016 influenza virus vacc ine, unspecified formulation Darwin RICHMOND [facility] Payers Date Payer Category Payer Unknown [id number] 2020 Unknown 2020 Unknown [id number] 2017 Unknown [id number] 2016 Medicare [id number] 2016 Medicare MEDICARE MEDICAR E A AND B [id number] 2016-Present [address] [place] [address] [id number] 1959 Medicare [id number] 1959 Private Health Insurance CLI [id number] 1959 Unknown [id number] 1951 Unknown [id number] 2.16.840.1.274657.3.579.2.9 83 1951 Unknown [id number] 2.16.840.1.288728.3.579.2.9 83 1951 Unknown [id number] 2.16.840.1.504074.3.579.2.9 83 1951 Unknown [id number] 2.16.840.1.544158.3.579.2.9 83 1951 Unknown [id number] 2.16.840.1.474681.3.579.2.9 83 1951 Unknown [id number] 2.16.840.1.839765.3.579.2.9 83 1951 Unknown [id number] 2.16.840.1.800059.3.579.2.9 83 1951 Unknown [id number] 2.16.840.1.059718.3.579.2.9 83 1951 Unknown [id number] 2.16.840.1.363020.3.579.2.5 93 1951 Unknown [id number] 2.16.840.1.675277.3.579.2.5 93 1951 Unknown [id number] 2.16840.1.327399.3.579.2.5 93 1951 Unknown [id number] 2.16.840.1.324507.3.579.2.5 93 1951 Unknown [id number] 2.16.840.1.993331.3.579.2.5 93 1951 Unknown [id number] 2.16.840.1.727946.3.579.2.1 259 1951 Unknown [id number] 2.16.840.1.153912.3.579.2.7 27 1951 Unknown [id number] 2.16.840.1.781462.3.579.2.7 27 1951 Unknown [id number] 2.16.840.1.869542.3.579.2.7 27 1951 Unknown [id number] 2.16.840.1.750567.3.579.2.7 27 Social History Date Type Detail Facility Start: 09-11-2020 End: 08-14-2024 Tobacco smoking status NHIS Former smoker [facility] History of tobacco use Cigarette Smoker A [facility] Start: 09-11-2020 End: 11-23-2023 Tobacco use and exposure Never used [facility] Start: 09-11-2020 End: 11-23-2023 Alcohol intake Ex-drinker (finding) [facility] Start: 1950 Sex Assigned At Not on file A [facility] Start: 10-02-2020 End: 11-23-2023 Tobacco Comment quit 40 yrs ago [facility] Exposure to SARS-CoV -2 (event) Not sure [facility] Start: 10-01-2020 Tobacco smoking status Never s moked tobacco (finding) [facility] Start: 11-23-2023 Sex Assigned At Male F [facility] History of tobacco use Current smoker [facility] Start: 11-23-2023 History of Social function [facility] Tobacco smoking status Never [facility] [place] Medical Equipment Procedure Code Equipment Code Equipment [...] Assessment Result Facility 08-14-2024 Functional Status N/A [facility] General Surgery [employer] 01-31-2024 Functional Status N/A [facility] [place] 05-16-2023 Functional Status N/A [facility] Clinical Notes 10-29-2021 to 01-31-2024 Maria G Frod - 11/23/2023 8:40 AM MARK Lozoya - [...] virus vaccine, inactivated 08/2023 Recorded SARS-CoV-2 (COVID-19) [id number].[id number] 09/24/2022 Recorded influenza virus vaccine, inactivated 08/31/2022 Recorded SARSCoV2 mRNA(pwvgnuthh-rlbk-hmerzw) vac 03/29/2022 Recorded SARS-CoV-2 (COVID-19) Ad26 vaccine 09/2021 Recorded SARS-CoV-2 (COVID-19) (more content not included)... [facility] Comment on above: Result Comment: Elec tronically Signed By: EVETTE RILEY, Obey Varela\Date and Time Signed: 01/31/24 09:05 EDT 11-23-2023 History of Present illness Narrative Ortho Nurse - Established Patient Intake Room#: 5 Date: 11/23/2023 8:26 AM Patient: López Cortés MR#: [id number] : 1950 Age: 73 y.o. 3yr L [...] antibiotics. López is an established patient of [facility]. He is here today for followup. He [...] his exercise program will resolve his symptoms. (DOC:[id number]) I have reviewed the findings of the clinical pit crew support worker and agree with their assessment. Bhavana Addison APRN-ED TECH Ortho Nurse - Established Patient Intake Room#: 5 Date: 11/23/2023 8:26 AM Patient: López Cortés MR#: [id number] : 1950 Age: 73 y.o. 3yr L [...] and sulfa antibiotics. documented in this encounter [facility] 05-16-2023 Hospital Discharge instructions Patient Education [...] Follow these instructions at home: Medicines Take jsrq-rgs-axflitz and prescription medicines only as told by [...] provider. Document Revised: 02/03/2022 Document Reviewed: 02/03/2022 [employer] Patient Education 2022 [employer]. Follow Up Care 01/26/2022 15:47:19 With:ISABEL RILEY, Darwin Moreno, URL Address: [address] [place], [place] [address]- When: Unknown Comments:DANK [facility] Rufino 06-16-2022 History of Present illness Narrative Ortho Nurse - Established Patient Intake Room#: 1 Left Knee Revision checkup, doing great , some pain of 2 when doing steps, Clindamycin was ordered today for dental prophylaxis Date: 06/16/2022 10:17 AM Patient: López Cortés MR#: [id number] : 1950 Age: 72 y.o. Referring Physician: [...] have reviewed the findings of the clinical pit crew support worker and agree with their assessment. Ortho Nurse - Established Patient Intake Room#: 1 Left Knee Revision checkup, doing great , some pain of 2 when doing steps, Clindamycin was ordered today for dental prophylaxis Date: 06/16/2022 10:17 AM Patient: López Cortés MR#: [id number] : 1950 Age: 72 y.o. Referring Physician: [...] and sulfa antibiotics. documented in this encounter [facility] 05-26-2022 History of Present illness Narrative [...] at that time. documented in this encounter [facility] 02-17-2022 History of Present illness Narrative [...] shots have helped. documented in this encounter [facility] 12-17-2021 History of Present illness Narrative HPI: López is here today for evaluation of his operative knee. 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 He was last evaluated on 10/29/21 by my ED TECH, he was instructed to use Voltaren gel [...] have reviewed the findings of the clinical pit crew support worker and agree with their assessment. Ortho Nurse Established Patient Intake Room#: 2---Visit today to follow -up on Left knee pain. He has no pain when resting or sleeping. The pain starts after long walks or using stairs. He had a left TKA on 10-29-20. His pain today is a 3. Date: 12/17/2021 10:55 AM Patient: López Cortés MR#: [id number] : 1950 Age: 71 y.o. Referring Physician: [...] 12/17/2021 10:55 AM Patient: López Cortés MR#: [id number] : 1950 Age: 71 y.o. Referring Physician: [...] and sulfa antibiotics. documented in this encounter [facility] 10-29-2021 History of Present illness Narrative [...] have reviewed the findings of the clinical pit crew support worker and agree with their assessment. Ortho Nurse Established Patient Intake Room#: 4 Date: 10/29/2021 11:10 AM Patient: López Cortés MR#: [id number] : 1950 Age: 71 y.o. 1yr F/U [...] 10/29/2021 11:10 AM Patient: López Cortés MR#: [id number] : 1950 Age: 71 y.o. 1yr F/U [...] and sulfa antibiotics. documented in this encounter [employer] [facility] Evaluation + Plan note Future Appointments Appointment Date:05/16/2023 09:45:00 AM Scheduled Provider:Darwin RICHMOND MD Location:[facility] Appointment Type:URO Office Visit [facility] Evaluation + Plan note Future Appointments Appointment Date:02/28/2024 01:40:00 PM Scheduled Provider:Obey ALAS MD Location:[facility] Appointment Type:GS Procedure 30 [facility] General Surgery [place] Evaluation + Plan note Future Appointments Appointment Date:03/06/2024 02:40:00 PM Scheduled Provider:Obey ALAS MD Location:[facility] Appointment Type: Established 15 General Surgery Don Evaluation note Diagnosis Hx of total knee arthroplasty, left- Primary [facility] Diagnosis Bilateral thumb pain- Primary Left knee pain, unspecified chronicity [facility] Diagnosis Bilateral thumb pain [facility] Diagnosis Bilateral thumb pain [facility]* Diagnosis Bilateral thumb pain- Primary Primary osteoarthritis of first carpometacarpal joint of left hand Primary localized osteoarthrosis, hand documented [facility]* Diagnosis Bilateral thumb pain- Primary [facility]* Diagnosis History of revision of total replacement of left knee joint- Primary [facility] [place] [facility]* Diagnosis Hx of total knee arthroplasty, left- Primary [facility] N[facility] No data available for this section [facility] No data available for this section [facility] No data available for this section [facility] Summary Purpose Family History No Family [...] FoundDocuments on File Type Date Recorded Patient Assurance Associate Expl anation Advance Directives/Living Will 10/28/2020 9:12 AM LIVING WILL, POA Latest Code Status on File Code Status Date Activated Date Inactivated Comments Full Code 10/28/2020 3:43 PM Documents on File Type Date Recorded Patient Assurance Associate Expl anation Advance Directives/Living Will 10/28/2020 9:12 [...] BONE SCAN WHOLE BODY Barak Hebert MD [address] [place], [place] [id number] [facility] Nuclear Medicine [address] [place], [place] [phone] Status Reason Specialty Diagnoses / Procedures Referred By Contact Referred To Contact Auth Not Needed Nuclear Medicine Diagnoses Pain in prosthetic joint, initial encounter Procedures NUC WBC STUDY DE ABSCESS IMAGING, WHOLE BODY Barak Hebert MD [address] [place], [place] [id number] [address] [place] [phone] Status Reason Specialty Diagnoses / Procedures Referred By Contact Referred To Contact Auth Not Needed Nuclear Medicine Diagnoses Pain in prosthetic joint, initial encounter Procedures NUC BONE MARROW LIMITED AREA DE BONE MARROW IMAGING, LTD Barak Hebert MD [address] [place], [place] [id number] [facility] Medicine [address] [place], [place] [phone] Status Reason Specialty Diagnoses / Procedures Referred By Contact Referred To Contact Pending Review Diagnoses Left knee pain, unspecified chronicity Procedures XR BONE LENGTH STUDY Barak Hebert MD [address] [place] [id number] Status Reason Specialty Diagnoses / Procedures Referred By Contact Referred To Contact Pending Review Diagnoses Left knee pain, unspecified chronicity Procedures XR KNEE LEFT 3 VIEWS Barak Hebert MD [address] [place] [id number] Status Reason Specialty Diagnoses / Procedures Referred By Contact Referred To Contact Closed Nuclear Medicine Diagnoses Pain in prosthetic joint, subsequent encounter Procedures NUC 3 PHASE LIMITED BONE SCAN DE BONE IMAGING, 3 PHASE Bhavana Addison SECOND BUTLER-ED TECH [address] [place], [place] [id number] [facility] Nuclear Medicine [address] [place], [place] [phone] Status Reason Specialty Diagnoses / Procedures Referred By Contact Referred To Contact New Request Diagnoses Hx of total knee arthroplasty, left Procedures XR KNEE LEFT 3 VIEWS Kaila Richmond PA-C [address] [place], [place] [phone] Status Reason Specialty Diagnoses / Procedures Referred By Contact Referred To Contact Closed Nuclear Medicine Diagnoses Pain in prosthetic joint, initial encounter Procedures NUC BONE MARROW LIMITED AREA DE BONE MARROW IMAGING, [facility] Barak Hebert MD [address] [place], [place] [id number] [facility] Nuclear Medicine [address] [place] [phone] Specialty Diagnoses / Procedures Referred By Contac t Referred To Contact Diagnoses Hx of total knee arthroplasty, left Procedures XR KNEE LEFT 3 VIEWS Nila Bhavana, SECOND BUTLER-ED TECH [address] [place], [place] [id number] Referral ID Status Reason Start Date Expiration Date V isits Requested Visits Authorized [id number] New Request 10/22/2021 11/16/2022 1 1 Specialty Diagnoses / Procedures Referred By Contac t Referred To Contact Physical Therapy Diagnoses Left knee pain, unspecified chronicity Barak Hebert MD [address] [place], [place] [id number] Referral ID Status Reason Start Date Expiration Date V isits Requested Visits Authorized [id number] New Request 12/17/2021 01/11/2023 1 1 Scheduling Instructions . Specialty Diagnoses / Procedures Referred By Contac t Referred To Contact Orthopaedic Surgery Diagnoses Bilateral thumb pain Barak Hebert MD [address] [place] [id number] Gadiel Floyd MD [address] [place] [phone] Referral ID Status Reason Start Date Expiration Date V isits Requested Visits Authorized [id number] New Request 12/17/2021 01/11/2023 1 1 Specialty Diagnoses / Procedures Referred By Contac t Referred To Contact Diagnoses Bilateral thumb pain Procedures XR THUMB LEFT Gadiel Floyd MD [address] [place] [address] Referral ID Status Reason Start Date Expiration Date V isits Requested Visits Authorized [id number] New Request 02/11/2022 03/08/2023 1 1 Specialty Diagnoses / Procedures Referred By Contac t Referred To Contact Diagnoses History of revision of total replacement of left knee joint Procedures XR KNEE LEFT 3 VIEWS Barak Hebert MD [address] [place] [address] Referral ID Status Reason Start Date Expiration Date V isits Requested Visits Authorized [id number] New Request 06/15/2022 07/10/2023 1 1 Referral ID Status Reason Start Date Expiration Date V isits Requested Visits Authorized [id number] New Request 11/22/2023 12/16/2024 1 1 History [...] leg or life. The understand revision jack yelnea may take longer and may require more extensive exposure and potentially osteotomies and that this may lead to additional morbidity or mortality. Despite these risks, the patient would like to proceed with surgical planning. Today, we will initiate the pre-surgical process including nasal MRSA screening, scheduling an appointment for [facility] and the potential surgical date, and reviewing [...] file Gets together: Not on file Attends quaker service: Not on file Active member of [...] 09/11/2020 2:10 PM Patient: López Cortés MR#: [id number] : 1950 Age: 70 y.o. Referring Physician: [...] [x]cane, []bracing Are you followed by a mill control operator? [] [x] Name: Are you followed by [...] Transfer Skill: Sit To Stand, Rehab Eval [place] (Sit-Stand Transfers) other (see comments) (SBA) Physical Assist/Nonphysical Assist: Sit/Stand 1 person assist Weight-Bearing Restrictions: Sit/Stand weight-bearing as tolerated Assistive Device For Transfer: Sit/Stand 2 wheeled walker Gait Skills, PT Eval Level of [place]: Gait stand-by assist Physical Assist/Nonphysical Assist: Gait 1 person assist Weight-Bearing Restrictions: Gait weight-bearing as tolerated Assistive Device For Transfer: Gait 2 wheeled walker Gait Distance (300ft) Gait Analysis, PT Eval Gait Pattern Used swing-through gait Gait Deviations Identified (Gait) decreased heel strike;other (see comments) (toe out ) Impairments Contributing To Gait Deviations pain;decreased ROM Stair Negotiation Level of [place]: Stair Negotiation stand-by assist Physical Assist/Nonphysical Assist: [...] Transfer Skill: Sit To Stand, Rehab Eval [place] (Sit-Stand Transfers) other (see comments) (SBA) Physical Assist/Nonphysical Assist: Sit/Stand 1 person assist Weight-Bearing Restrictions: Sit/Stand weight-bearing as tolerated Assistive Device For Transfer: Sit/Stand 2 wheeled walker Gait Skills, PT Eval Level of [place]: Gait stand-by assist Physical Assist/Nonphysical Assist: Gait 1 person assist Weight-Bearing Restrictions: Gait weight-bearing as tolerated Assistive Device For Transfer: Gait 2 wheeled walker Gait Distance other (see comments) (125ft) Gait Analysis, PT Eval Gait Pattern Used swing-through gait Gait Deviations Identified (Gait) decreased heel strike;other (see comments) (toe out) Impairments Contributing To Gait Deviations pain;decreased ROM Stair Negotiation Level of [place]: Stair Negotiation contact guard Physical Assist/Nonphysical Assist: [...] upon exit Therapist Information License # [id number] * Esperanza Avila MD - 10/28/2020 6:47 PM EST INPATIENT REHAB / SWINGBED PROGRESS NOTE Admit Date: 10/28/2020 Date of Evaluation: 10/28/20206:47 PM [facility] Rehab / Skilled bed LOS: 0 [...] Supine to Sit, Rehab Eval Level of [place]: Supine/Sit stand-by assist Physical Assist/Nonphysical Assist: Supine/Sit 1 person assist Transfer Skill: Sit to Stand, Rehab Eval Level of [place]: Sit/Stand contact guard Physical Assist/Nonphysical Assist: Sit/Stand 1 person assist Weight-Bearing Restrictions: Sit/Stand weight-bearing as tolerated Assistive Device for Transfer: Sit/Stand wheeled walker Upper Body Dressing Level of [place] independent Physical Assist/Nonphysical Assist set-up required Lower Body Dressing Level of [place] moderate assist (50% patients effort) Physical Assist/Nonphysical Assist 1 person assist (including ZACKARY hose ) Toileting Level of [place] contact guard Physical Assist/Nonphysical Assist [address] [place] Level (Grooming) supervision;wash face, hands General Therapy [...] hygiene training Therapist Information License # [id number] 1. Pt will complete LB dressing MOD [...] Supine to Sit, Rehab Eval Level of [place]: Supine/Sit stand-by assist Physical Assist/Nonphysical Assist: Supine/Sit 1 person assist Transfer Skill: Sit To Stand, Rehab Eval [facility] (Sit-Stand Transfers) contact guard Physical Assist/Nonphysical Assist: Sit/Stand 1 person assist Weight-Bearing Restrictions: Sit/Stand weight-bearing as tolerated Assistive Device For Transfer: Sit/Stand 2 wheeled walker Gait Skills, PT Eval Level of [place]: Gait contact guard Physical Assist/Nonphysical Assist: Gait 1 person assist Weight-Bearing Restrictions: Gait weight-bearing as tolerated Assistive Device For Transfer: Gait 2 wheeled walker Gait Distance 75 feet Gait Analysis, PT Eval Gait Pattern Used swing-through gait Gait Deviations Identified (Gait) decreased gait speed;decreased heel strike;decreased step length Impairments Contributing To Gait Deviations decreased ROM;decreased strength Stair Negotiation Level of [place]: Stair Negotiation (not assessed at this time) [...] 11/19/2020 11:07 AM Patient: López Cortés MR#: [id number] : 1950 Age: 70 y.o. Referring Physician: [...] Date: 10/29/2020 Discharge Time: 10/29/2020 Discharge Unit: [facility] Inpatient Rehab unit Unit Length of [...] as: ULTRAM Follow-up: Tess Fuentes MD [address] [facility] [address] In 1 week SANJUANITA louise 1 week Barak Hebert MD [address] [facility] [address] Call in 3 days Upcoming Appointments (up to five)-Some appointments for Medical Center outpatient clinics or diagnostic testing locations are not displayed below Provider Department Dept Phone 11/19/2020 11:00 AM Kaila Richmond [facility] [phone] Total coordination of discharge care taking greater that 30 minutes documented in this encounter Discharge Instructions * Discharge Instr - Activity* Esperanza Avila MD - 10/29/2020 8:19 AM EST As tolerated * Discharge Instr - Diet* Esperanza Avila MD - 10/29/2020 8:20 AM EST As tolerated * Discharge Instr - Notify* [place] RN - 10/29/2020 10:08 AM EST Contact Office ([phone]) if: > Total Knee ROM < 90 [...] Hour Product Support Hotline at Contact Office ([phone]) if: > Total Knee ROM < 90 [...] Don office is closed, you may call [phone] where you will be connected with an after hours orthopedic nurse that will be able to answer your questions. The morning after your discharge Dr. Don office will contact you to follow up with how your recovery is progressing at home. * Attachments The following attachments cannot be sent through Care Everywhere. * meloxicam (oral/injection) (Kyrgyz) * oxycodone (Kyrgyz) * acetaminophen (oral) (Kyrgyz) * docusate and senna (Kyrgyz) * multivitamins (Kyrgyz) * omeprazole (Kyrgyz) * doxycycline (oral/injection) (Kyrgyz) documented in this encounter Additional Source Comments (unrecognized sect ion and content) No Status Records FoundNo Status Records FoundNo Status Records FoundNo Status Records FoundNo Status Records FoundNo Status Records FoundNo Status Records Found INFORMATION SOURCE (unrecogn ized section and content) DATE CREATED AUTHOR 05/16/2018 [facility] DATE CREATED AUTHOR AUTHOR'S ORGANIZ ATION 05/16/2018 [facility] DATE CREATED AUTHOR AUTHOR'S ORGANIZ ATION 02/27/2019 [facility] DATE CREATED AUTHOR AUTHOR'S ORGANIZ ATION 10/30/2022 [facility] DATE CREATED AUTHOR AUTHOR'S ORGANIZ ATION 02/02/2023 [facility] DATE CREATED AUTHOR AUTHOR'S ORGANIZ ATION 06/09/2024 [facility] EPIC DATE CREATED AUTHOR AUTHOR'S ORGANIZ ATION 08/17/2024 [facility] Reason for Visit (unrecogniz ed section and content) Status Reason Specialty Diagnoses / Procedures Referred By Contact Referred To Contact Pending Review Diagnoses Left knee pain, unspecified chronicity Procedures XR BONE LENGTH STUDY Barak Hebert MD [address] [place], [place] [id number] Reason Comments Knee Pain Pain New Patient Status Reason Specialty Diagnoses / Procedures Referred By Contact Referred To Contact Closed Nuclear Medicine Diagnoses Pain in prosthetic joint, subsequent encounter Procedures NUC 3 PHASE LIMITED BONE SCAN DE BONE IMAGING, 3 PHASE Bhavana Addison, SECOND BUTLER-ED TECH [address] [place], [place] [id number] [facility] [address] [place], [place] [id number] Status Reason Specialty Diagnoses / Procedures Referred By Contact Referred To Contact Closed Nuclear Medicine Diagnoses Pain in prosthetic joint, initial encounter Procedures NUC WBC STUDY DE ABSCESS IMAGING, WHOLE BODY Barak Hebert MD [address] [place], [place] [id number] [facility] [address] [place], [place] [phone] Status Reason Specialty Diagnoses / Procedures Referre d By Contact Referred To Contact Diagnoses Mechanical loosening of internal left knee prosthetic joint, 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, 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] Procedures DE REVISE KNEE JOINT REPLACE,ALL PARTS REVISION ARTHROPLASTY KNEE Barak Hebert MD [address] [place], [place] [address] Reason Comments Post Op Visit Status Reason Specialty Diagnoses / Procedures Referred By Contact Referred To Contact New Request Diagnoses Hx of total knee arthroplasty, left Procedures XR KNEE LEFT 3 VIEWS Kaila Richmond PA-C [address] [place], [place] [address] Status Reason Specialty Diagnoses / Procedures Referred By Contact Referred To Contact Closed Nuclear Medicine Diagnoses Pain in prosthetic joint, initial encounter Procedures NUC BONE MARROW LIMITED AREA DE BONE MARROW IMAGING, LTD Barak Hebert MD [address] [place] [phone] [facility] [address] [place], [place] [phone] Status Reason Specialty Diagnoses / Procedures Referred By Contact Referred To Contact Auth Not Needed Nuclear Medicine Diagnoses Pain in prosthetic joint, initial encounter Procedures NUC WBC STUDY DE ABSCESS IMAGING, WHOLE BODY Barak Hebert MD [address] [place] [phone] [facility] [address] [place] [phone] Status Reason Specialty Diagnoses / Procedures Referred By Contact Referred To Contact New Request Diagnoses S/P total knee arthroplasty, left Procedures XR BONE LENGTH STUDY Barak Hebert MD [address] [place], [place] [id number] Specialty Diagnoses / Procedures Referred By Contac t Referred To Contact Diagnoses Hx of total knee arthroplasty, left Procedures XR KNEE LEFT 3 VIEWS Bhavana Addison, SECOND BUTLER-ED TECH [address] [place], [place] [address] Referral ID Status Reason Start Date Expiration Date V isits Requested Visits Authorized [id number] New Request 10/22/2021 11/16/2022 1 1 Reason Comments Follow-up Reason Comments Pain Condition Update Specialty Diagnoses / Procedures Referred By Contac t Referred To Contact Diagnoses Bilateral thumb pain Procedures XR THUMB LEFT Gadiel Floyd MD [address] [place] [id number] Referral ID Status Reason Start Date Expiration Date V isits Requested Visits Authorized [id number] New Request 02/11/2022 03/08/2023 1 1 Reason Comments Pain Specialty Diagnoses / Procedures Referred By Contac t Referred To Contact Orthopaedic Surgery Diagnoses Bilateral thumb pain Barak Hebert MD [address] [place] [phone] Gadiel Floyd MD [address] [place] [phone] Referral ID Status Reason Start Date Expiration Date V isits Requested Visits Authorized [id number] New Request 12/17/2021 01/11/2023 1 1 Reason Comments Follow-up Follow Up- Bilat Bas al Joint Arthritis/ Last Injection: 3/30/22- Pain Scale: 2/10 Bilat Referral ID Status Reason Start Date Expiration Date V isits Requested Visits Authorized [id number] New Request 11/22/2023 12/16/2024 1 1 Amaris Samayoa RN - 10/28/2020 2:35 PM ESTWhAmaris tubbs RN - 10/28/2020 12:50 PM EST Nursing Notes (unrecognized section and content) Patient ransferred to PACU via bed with this nurse and BUSINESS INTELLIGENCE ARCHITECT. Bedside report given to ANOOP Law. Fire [...] determined in the discharge planning process with high school social science teacher and the multidisciplinary team. Return to [place] from PT. C/o pain 4 out of 10. Pain pill offered but Tylenol due. PT to take tylenol and save oxicodone for after lunch. Follow up phone call to [facility], who state that they can accept to start services tomorrow. Follow up call received from Suzy at [facility]. Referral for [facility] therapistSanta to be made through [facility]. Instructed to request Santa for PT on referral. Referral sent at this time. To PT room Spoke with Suzy at [facility] regarding referral. Referring patient information, will [...] PROCEDURE: 10/28/2020 ATTENDING PHYSICIAN: Barak Hebert M.D. CHANGE ADVISOR: Bhavana Addison CNP. PREOPERATIVE DIAGNOSIS: Failed left [...] on the back table according to the wastewater analyst s technique. They were then cemented into [...] without the assistance of a skilled rn surgical. A rn surgical was medically necessary for positioning, retraction and [...] bay 310. POST OPERATIVE/PROCEDURE NOTE López Cortés ([id number]) SURGEON Surgeon(s) and Role: * Barak Hebert MD - Primary CHANGE ADVISOR MARK Richardson ANESTHESIOLOGIST BUSINESS INTELLIGENCE ARCHITECT: Yusef Escobedo CRNA SURGICAL STAFF Alumni Coordinator: Kerry Richter RN Nurse Practitioner: MARK Richardson Scrub Person: Andrew Moffett RN; Alyx Miller; Martha Rolon RN Nail Setter Weld Inspector: Escobar Rodriguez Plastics Engineer: Efrem Bonner LPN PROCEDURE PERFORMED Procedure(s) (LRB): [...] Barak Hebert MD 10/28/2020 1301 Bhavana Addison, SECOND BUTLER-ED TECH October 28, 2020 2:39 PM CM met with patient this date to discuss post-surgical discharge plans. Patient states that he plans to return home with his spouse and [facility] after discharge for a left knee revision. He states that lives in [place] and would like to utilize [facility] in that area. He states that he has a wheeled walker and will bring it with him on the day of surgery. CM to continue to follow and assist with discharge plans. 10/02/20 0928 Information Source Information Source patient Contact Information Gold Leaf Laborer Name Sun Lopez RN Case Manager's Living [...] Care Teams (unrecognized sec tion and content) Brakeshoe Repairer Relationship Specialty Start Date End Date Tess Fuentes MD [address] [place] [address] PCP - General Family Medicine 09/11/20 Brakeshoe Repairer Relationship Specialty Start Date End Date Tess Fuentes MD [address] [place] [address] PCP - General Family Medicine 09/11/20 Brakeshoe Repairer Relationship Specialty Start Date End Date Tess Fuentes MD [address] [place] [address] PCP - General Family Medicine 09/11/20 Brakeshoe Repairer Relationship Specialty Start Date End Date Tess Fuentes MD [address] [place] [address] PCP - General Family Medicine 09/11/20 Brakeshoe Repairer Relationship Specialty Start Date End Date Tess Fuentes MD [address] [place] [address] PCP - General Family Medicine 09/11/20 Brakeshoe Repairer Relationship Specialty Start Date End Date Tess Fuentes MD [address] [place] [address] PCP - General Family Medicine 09/11/20 Brakeshoe Repairer Relationship Specialty Start Date End Date Tess Fuentes MD [address] [place] [address] PCP - General Family Medicine 09/11/20 Brakeshoe Repairer Relationship Specialty Start Date End Date Tess Fuentes MD [address] [place] [address] PCP - General Family Medicine 09/11/20 Brakeshoe Repairer Relationship Specialty Start Date End Date Tess Fuentes MD [address] [place] [facility] [place] [address] PCP - General Family Medicine 09/11/20 Brakeshoe Repairer Relationship Specialty Start Date End Date Tess Fuentes MD [address] [place] [address] PCP - General Family Medicine 09/11/20 FOR [...] BE BASED ON THE PRIMARY CLINICAL RECORDS. [facility]. provides no warranty or guarantee of the accuracy or completeness of information in this document.
[2024-08-29 09:36] VITALS: BP 146/90; PULSE 68; TEMP 36.2; O2SAT 98
[2024-08-29 11:30] VITALS: BP 162/97; BP 169/93; PULSE 63; PULSE 67; O2SAT 96; O2SAT 97
[2024-08-29] MEDS: BUPIVACAINE HCL 0.5% PF 50 MG/10 ML VIAL 1.5 ML INJ (11:30)
[2024-08-29] MEDS: BACITRACIN OINTMENT 28.4 GM TUBE 1 APPLIC TOPICAL (11:48)
== END 2024-08-29 11:59 | disposition home or self-care (01) ==
PROVIDERS: PCP Family Medicine; Visit Provider Surgery
PROC: (CPT 11642; principal; 2024-08-29 10:15)
DX: C44.211 Basal cell carcinoma of skin of unspecified ear and external auricular canal (principal)
CPT/HCPCS: 11642; J0665

== ENCOUNTER 2024-09-23 11:19 | Emergency (ER) | payer MEDICARE, SELFPAY ==
[2024-09-23 11:22] VITALS: BP 122/90; PULSE 60; TEMP 37.1; O2SAT 98; BMI 33.5
--- OUTSIDE RECORDS SUMMARY | 2024-09-23 11:49 | XMS_ITS | CCD ---
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 RANGES SEE BELOW Normal [facility] Comment on above: Result Comment: <20 ng/mL Vit D deficient 20 - <30 ng/mL Vit D insufficient 30 - 100 ng/mL Vit D sufficient >100 ng/mL Potential Toxicity Performed By: #### P SASC, VITAD #### [facility] [address] [place] [address] Dr. Braulio Fritz T4 [facility] 04-16-2022 T4 [Mass/Vol] 6.6 ug/dL Normal 4.5-12.0 [facility] Comment on above: Performed By: #### I NSULIN #### [facility] [address] [place] [address] Dr. Braulio Fritz NM STRESS/REST MULTIon 04-15 NM STRESS/REST MULTI Patient: LÓPEZ CORTÉS Exam Date: 04/15/2022 : 1950 Gender:M Ordering : DR TESS FUENTES . Admission #: [id number] Family : Order #: [id number] CLICK HERE TO VIEW EXAM RADIOLOGY REPORT [...] Stahl M.D. on 04/16/2022 at 13:16 Normal [facility] ECHOCARDIO M/2D COMPLETEon 0 04-13-2022 ECHOCARDIO M/2D COMPLETE Patient: LÓPEZ CORTÉS Exam Date: 04/13/2022 : 1950 Gender:M Ordering : DR TESS FUENTES . Admission #: [id number] Family : Order #: [id number] CLICK HERE TO VIEW EXAM ECHOCARDIOGRAM REPORT [...] Area(A4C): 20.60 cm2 Left Atrium Systolic Volume(A2C): 44628 mm3 Left Atrium Systolic Volume(A4C): 72982 mm3 Mitral Valve MV E to A [...] Sheridan M.D. on 04/13/2022 at 11:36 Normal [facility] BLD IMMUNO SCREENon - OCCULT BLOOD Negative Normal NEGATIVE [facility] Comment on above: Performed By: #### O BSCRN #### [facility] [address] [place] [address] Dr. Braulio Fritz INSULINon 04-12-2022 Insulin 18.7 uIU/mL Normal 2.6-24.9 [facility] Comment on above: Performed By: #### I NSULIN #### [facility] [address] [place] [address] Dr. Braulio Fritz BNPon 04-10-2022 Natriuretic peptide B (Bld) [Mass/Vol] 672.0 pg/mL Normal <=900.0 [facility] Comment on above: Performed By: #### A 1C #### [facility] [address] [place] [address] Dr. Braulio Fritz CBC AUTO DIFFon 04-10-2022 BASO # 0.1 103/ul Normal 0.0-0.1 [facility] Comment on above: Performed By: #### I NSULIN #### [facility] [address] [place] [address] Dr. Braulio Fritz Basophils/100 WBC (Bld) 0.8 % Normal 0.2-2.0 [facility] Comment on above: Performed By: #### I NSULIN #### [facility] [address] [place] [address] Dr. Braulio Fritz EO # 0.3 103/ul Normal 0.0-0.7 [facility] Comment on above: Performed By: #### I NSULIN #### [facility] [address] [place] [address] Dr. Braulio Fritz Eosinophils/100 WBC (Bld) 4.0 % Normal 0.9-7.0 [facility] Comment on above: Performed By: #### I NSULIN #### [facility] [address] [place] [address] Dr. Braulio Fritz Erythrocyte distribution width (RBC) [Ratio] 13.7 % Normal 11.0-15.0 [facility] Comment on above: Performed By: #### I NSULIN #### [facility] [address] [place] [address] Dr. Braulio Fritz Hematocrit (Bld) [Volume fraction] 47.7 % Normal 42.0-54.0 [facility] Comment on above: Performed By: #### I NSULIN #### [facility] [address] [place] [address] Dr. Braulio Fritz Hemoglobin (Bld) [Mass/Vol] 15.9 g/dL Normal 14.0-18.0 [facility] Comment on above: Performed By: #### I NSULIN #### [facility] [address] [place] [address] Dr. Braulio Fritz IG # 0.02 10e3/ul Normal 0.00-0.03 [facility] Comment on above: Performed By: #### I NSULIN #### [facility] [address] [place] [address] Dr. Braulio Fritz IG % 0.3 % Normal 0.0-0.5 [facility] Comment on above: Performed By: #### I NSULIN #### [facility] [address] [place] [address] Dr. Braulio Fritz LYMPH # 1.6 103/ul Normal 1.2-3.8 [facility] Comment on above: Performed By: #### I NSULIN #### [facility] [address] [place] [address] Dr. Braulio Fritz Lymphocytes/100 WBC (Bld) 24.6 % Normal 20.5-60.0 [facility] Comment on above: Performed By: #### I NSULIN #### [facility] [address] [place] [address] Dr. Braulio Fritz MANUAL DIFF REQ NO Normal [facility] Comment on above: Performed By: #### I NSULIN #### [facility] [address] [place] [address] Dr. Braulio Fritz MCH (RBC) [Entitic mass] 31.6 pg Normal 25.9-34.0 [facility] Comment on above: Performed By: #### I NSULIN #### [facility] [address] [place] [address] Dr. Braulio Fritz MCHC (RBC) [Mass/Vol] 33.3 g/dL Normal 29.9-35.2 [facility] Comment on above: Performed By: #### I NSULIN #### [facility] [address] [place] [address] Dr. Braulio Fritz MCV (RBC) [Entitic vol] 94.8 fL Critically high 80.0-94.0 [facility] Comment on above: Performed By: #### I NSULIN #### [facility] [address] [place] [address] Dr. Braulio Fritz MONO # 0.7 103/ul Normal 0.3-0.8 [facility] Comment on above: Performed By: #### I NSULIN #### [facility] [address] [place] [address] Dr. Braulio Fritz Monocytes/100 WBC (Bld) 11.2 % Normal 1.7-12.0 [facility] Comment on above: Performed By: #### I NSULIN #### [facility] [address] [place] [address] Dr. Braulio Fritz NEUT # 3.8 103/ul Normal 1.4-6.5 [facility] Comment on above: Performed By: #### I NSULIN #### [facility] [address] [place] [address] Dr. Braulio Fritz Neutrophils/100 WBC (Bld) 59.1 % Normal 43.0-75.0 [facility] Comment on above: Performed By: #### I NSULIN #### [facility] [address] [place] [address] Dr. Braulio Fritz Platelet mean volume (Bld) [Entitic vol] 10.0 fL Normal 9.5-13.5 [facility] Comment on above: Performed By: #### I NSULIN #### [facility] [address] [place] [address] Dr. Braulio Fritz PLT 210 103/ul Normal 150-450 [facility] Comment on above: Performed By: #### I NSULIN #### [facility] [address] [place], [place] [id number] Dr. Braulio Fritz RBC 5.03 106/ul Normal 4.70-6.10 [facility] Comment on above: Performed By: #### I NSULIN #### [facility] [address] [address] [address] Braulio Fritz WBC 6.5 103/ul Normal 4.0-11.0 [facility] Comment on above: Performed By: #### I NSULIN #### [facility] [address] [place] [address] Dr. Braulio Fritz FREE THYROXINE INDEX T7on FTI 2.64 Normal 1.30-4.50 [facility] Comment on above: Performed By: #### A 1C #### [facility] [address] [place] [address] Dr. Braulio Fritz T3U 40.0 % Normal 33.0-40.0 [facility] Comment on above: Performed By: #### A 1C #### [facility] [address] [place] [address] Dr. Braulio Fritz T4 [Mass/Vol] 6.60 ug/dL Normal 4.50-12.10 [facility] Comment on above: Performed By: #### A 1C #### [facility] [address] [place] [address] Dr. Braulio Fritz GLYCOHEMOGLOBIN A1Con 2021 ADA RECOMMENDATION SEE BELOW Normal [facility] Comment on above: Result Comment: ADA RECOMMENDED LIMIT 4.0 - 6.0 ADA THERAPEUTIC TARGET < 7.0 ACTION SUGGESTED > 7.0 Performed By: #### A 1C #### [facility] [address] [place] [address] Dr. Braulio Fritz Glucose [Mass/Vol] 114 mg/dL Normal [facility] Comment on above: Performed By: #### A 1C #### [facility] [address] [place] [address] Dr. Braulio Fritz HbA1c (Bld) [Mass fraction] 5.6 % Normal 4.5-6.2 [facility] Comment on above: Performed By: #### A 1C #### [facility] [address] [address] [address] Braulio Fritz IRONon 04-10-2022 Iron [Mass/Vol] 105.0 ug/dL Normal 65.0-175.0 [facility] Comment on above: Performed By: #### B 12FOL, VITAD, PSASC, IRON #### [facility] [address] [address] [address] Braulio Fritz LIPID PROFILEon 04-10-2022 CHOL-HDL RATIO NORM SEE BELOW Normal [facility] Comment on above: Result Comment: 3.3 - 4.4 LOW RISK 4.4 - 7.1 AVERAGE RISK 7.1 - 11.0 MODERATE RISK >11.0 HIGH RISK Performed By: #### A 1C #### [facility] [address] [place] [address] Dr. Braulio Fritz Cholesterol [Mass/Vol] 132 mg/dL Normal <=200 [facility] Comment on above: Performed By: #### A 1C #### [facility] [address] [address] [address] Braulio Fritz Cholesterol in HDL [Mass/Vol] 38 mg/dL Critically low 40-60 [facility] Comment on above: Performed By: #### A 1C #### [facility] [address] [address] [address] Braulio Fritz Cholesterol in LDL [Mass/Vol] 71.2 mg/dL Normal [facility] Comment on above: Performed By: #### A 1C #### [facility] [address] [address] [address] Braulio Fritz Cholesterol.total/C holesterol in HDL [Mass ratio] 3.5 {ratio} Normal [facility] Comment on above: Performed By: #### A 1C #### [facility] [address] [place] [address] Dr. Braulio Fritz HDL NORMAL > or = 60 mg/dl - LO W CARDIOVASCULAR RISK <40 mg/dl - HIGH CARDIOVASCULAR RISK Normal [facility] Comment on above: Performed By: #### A 1C #### [facility] [address] [place] [address] Dr. Braulio Fritz LDL CALC NORMAL SEE BELOW Normal [facility] Comment on above: Result Comment: <100 mg/dl OPTIMAL 100 - 129 mg/dl NEAR OR ABOVE OPTIMAL 130 - 159 mg/dl BORDERLINE HIGH 160 - 189 mg/dl HIGH >190 mg/dl VERY HIGH Performed By: #### A 1C #### [facility] [address] [address] [address] Braulio Fritz Triglyceride [Mass/Vol] 114 mg/dL Normal <=150 [facility] Comment on above: Performed By: #### A 1C #### [facility] [address] [address] [address] Braulio Fritz VLDL CALC 22.8 mg/dL Normal [facility] Comment on above: Performed By: #### A 1C #### [facility] [address] [place] [address] Dr. Braulio Fritz PROF 14(COMP METB)on 022 Albumin [Mass/Vol] 3.5 g/dL Normal 3.4-5.0 [facility] Comment on above: Performed By: #### A 1C #### [facility] [address] [place] [address] Dr. Braulio Fritz Albumin/Globulin [Mass ratio] 1.0 {ratio} Normal [facility] Comment on above: Performed By: #### A 1C #### [facility] [address] [place] [address] Dr. Braulio Fritz ALP [Catalytic activity/Vol] 115 U/L Normal 46-116 [facility] Comment on above: Performed By: #### A 1C #### [facility] [address] [place] [address] Dr. Braulio Fritz ALT [Catalytic activity/Vol] 29 U/L Normal 16-63 [facility] Comment on above: Performed By: #### A 1C #### [facility] [address] [place] [address] Dr. Braulio Fritz Anion gap [Moles/Vol] 10.9 mmol/L Normal [facility] Comment on above: Performed By: #### A 1C #### [facility] [address] [place] [address] Dr. Braulio Fritz AST [Catalytic activity/Vol] 23 U/L Normal 15-37 [facility] Comment on above: Performed By: #### A 1C #### [facility] [address] [address] [address] Braulio Fritz Bilirubin [Mass/Vol] 1.3 mg/dL Critically high 0.2-1.0 [facility] Comment on above: Performed By: #### A 1C #### [facility] [address] [place] [address] Dr. Braulio Fritz Calcium [Mass/Vol] 8.8 mg/dL Normal 8.5-10.1 [facility] Comment on above: Performed By: #### A 1C #### [facility] [address] [place] [address] Dr. Braulio Fritz Chloride [Moles/Vol] 106 mmol/L Normal 98-107 [facility] Comment on above: Performed By: #### A 1C #### [facility] [address] [place] [address] Dr. Braulio Fritz CO2 [Moles/Vol] 27.5 mmol/L Normal 21.0-32.0 [facility] Comment on above: Performed By: #### A 1C #### [facility] [address] [place] [address] Dr. Braulio Fritz Creatinine [Mass/Vol] 1.68 mg/dL Critically high 0.70-1.30 [facility] Comment on above: Performed By: #### A 1C #### [facility] [address] [place] [address] Dr. Braulio Fritz EGFR-AF TRISTANIAN 49 mL/min/1.73m2 Critically low >=60 [facility] Comment on above: Performed By: #### A 1C #### [facility] [address] [place] [address] Dr. Braulio Fritz EGFR-NON AF TRISTANIAN 40 mL/min/1.73m2 Critically low >=60 [facility] Comment on above: Performed By: #### A 1C #### [facility] [address] [place] [address] Dr. Braulio Fritz Globulin (S) [Mass/Vol] 3.6 g/dL Normal [facility] Comment on above: Performed By: #### A 1C #### [facility] [address] [place] [address] Dr. Braulio Fritz Glucose [Mass/Vol] 109 mg/dL Critically high 74-106 [facility] Comment on above: Performed By: #### A 1C #### [facility] [address] [address] [address] Braulio Fritz Potassium [Moles/Vol] 4.4 mmol/L Normal 3.5-5.1 [facility] Comment on above: Performed By: #### A 1C #### [facility] [address] [place] [address] Dr. Braulio Fritz Protein [Mass/Vol] 7.1 g/dL Normal 6.4-8.2 [facility] Comment on above: Performed By: #### A 1C #### [facility] [address] [place] [address] Dr. Braulio Fritz Sodium [Moles/Vol] 140 mmol/L Normal 136-145 [facility] Comment on above: Performed By: #### A 1C #### [facility] [address] [place] [address] Dr. Braulio Fritz Urea nitrogen [Mass/Vol] 24.0 mg/dL Critically high 7.0-18.0 [facility] Comment on above: Performed By: #### A 1C #### [facility] [address] [place] [address] Dr. Braulio Fritz Urea nitrogen/Creatinine [Mass ratio] 14.3 mg/mg Normal [facility] Comment on above: Performed By: #### A 1C #### [facility] [address] [place] [address] Dr. Braulio Fritz TSHon 04-10-2022 TSH 0.740 uIU/mL Normal 0.358-3.740 [facility] Comment on above: Performed By: #### A 1C #### [facility] [address] [place] [address] Dr. Braulio Fritz TSH RANGE SEE BELOW Normal [facility] Comment on above: Result Comment: <0.3 4 UIU/ml HYPERTHYROID 0.34-5.60 UIU/ml EUTHYROID >5.60 UIU/ml HYPOTHYROID Performed By: #### A 1C #### [facility] [address] [place] [address] Dr. Braulio Fritz VIT B12 AND FOLATEon 022 Cobalamin (Vitamin B12) [Mass/Vol] 547.0 pg/mL Normal 193.0-986.0 [facility] Comment on above: Performed By: #### B 12FOL, VITAD, PSASC, IRON #### [facility] [address] [address] [address] Braulio Fritz FOLATE 17.80 ng/mL Normal 8.60-58.90 [facility] Comment on above: Performed By: #### B 12FOL, VITAD, PSASC, IRON #### [facility] [address] [place] [address] Dr. Braulio Fritz VITAMIN D 25 OHon 04-10-2022 VIT D 25-OH 50.4 ng/mL Normal [facility] Comment on above: Performed By: #### B 12FOL, VITAD, PSASC, IRON #### [facility] [address] [place] [address] Dr. Braulio Fritz VIT D RANGES SEE BELOW Normal [facility] Comment on above: Result Comment: <20 ng/mL Vit D deficient 20 - <30 ng/mL Vit D insufficient 30 - 100 ng/mL Vit D sufficient >100 ng/mL Potential Toxicity Performed By: #### B 12FOL, VITAD, PSASC, IRON #### [facility] [address] [place] [address] Dr. Braulio Fritz XR CHEST 2 Von [...] by: RJ LEON Date: 2022-04-09 12:41 Normal [facility] SMALL JOINT/BURSA INJECTION AND/OR ASPIRATION: L thumb CMCon 02-17-2022 Irene Parker 022 5:31 PM SMALL JOINT/BURSA INJECTION AND/OR ASPIRATION: [...] fashion. The patient was prepped with alcohol. [facility] C REACTIVE PROTEINon 022 CRP [Mass/Vol] 11.2 mg/L High 0-10.0 [facility] [place] Comment on above: Performed By: #### C REACT, ESR #### Testing performed at [address] [address] ESRon 11-27-2021 ESR (Bld) [Velocity] 27 mm/h High 0-20 [facility] [place] Comment on above: Performed By: #### C REACT, ESR #### Testing performed at [address] [address] C REACTIVE PROTEINon 021 CRP [Mass/Vol] 6.9 mg/L 0 - 10.0 MG/L [facility] SEDIMENTATION RATE, AUTOMATE Don 10-29-2021 ESR (Bld) [Velocity] 33 mm/h High [facility] Interpretation and review of laboratory results Abnormal [facility] CBC, EDIF, PLATELETon 2019 ABSOLUTE BASOPHIL COUNT 0.1 10*3/uL 0 - 0.2 10*3/uL [facility] Basophils/100 WBC (Bld) 0.5 % 0 - 2 % [facility] Differential cell count method Nom (Bld) AUTO DIFF % [facility] Eosinophils (Bld) [#/Vol] 0.00 10*3/uL 0 - 0.7 10*3/uL [facility] Eosinophils/100 WBC (Bld) 0.1 % 0 - 11 % [facility] Erythrocyte distribution width (RBC) [Ratio] 16.4 % High 11.5 - 14.5 % [facility] Hematocrit (Bld) [Volume fraction] 34.0 % Low 42 - 52 % [facility] Hemoglobin (Bld) [Mass/Vol] 10.9 g/dL Low [facility] Interpretation and review of laboratory results Abnormal [facility] Lymphocytes (Bld) [#/Vol] 0.90 10*3/uL Low 1.2 - 3.4 10*3/uL [facility] Lymphocytes/100 WBC (Bld) 6.9 % Low 20 - 55 % [facility] MCH (RBC) [Entitic mass] 27.8 pg 26 - 35 PG [facility] MCHC (RBC) [Mass/Vol] 32.1 g/dL [facility] MCV (RBC) [Entitic vol] 86.4 fL [facility] Monocytes (Bld) [#/Vol] 0.9 10*3/uL High 0 - 0.7 10*3/uL [facility] Monocytes/100 WBC (Bld) 7.1 % 0 - 10 % [facility] Neutrophils (Bld) [#/Vol] 11.2 10*3/uL High 1.4 - 6.5 10*3/uL [facility] Neutrophils/100 WBC (Bld) 85.4 % High 37 - 75 % [facility] Platelet mean volume (Bld) [Entitic vol] 8.1 fL [facility] Platelets (Bld) [#/Vol] 247 10*3/uL 130 - 400 10*3/uL [facility] RBC (Bld) [#/Vol] 3.93 10*6/uL Low 4 - 6.1 10*6/uL [facility] WBC (Bld) [#/Vol] 13.1 10*3/uL High 3.6 - 11 10*3/uL [employer] REPEAT ABO/RH (D) TYPINGon 1 12-29-2019 ABO and Rh group Nom (Bld ) Positive [facility] [employer] XR KNEE LEFT 2 VIEWSon 10-28 IMPRESSION: Status p ost total knee arthroplasty revision with expected postoperative changes. [facility] EXAM: XR KNEE LEFT 2 VIEWS HISTORY: [...] the soft tissues with overlying skin elizabeth. [employer] User, Interfaces - 10/28/2020 3:18 PM EST [...] knee arthroplasty revision with expected postoperative changes. [facility] NUC WBC STUDYon 09-24-2020 IMPRESSION: Hyperemi a to the left knee with no definite evidence for infected prosthesis. [facility] NUCLEAR MEDICINE TOT AL BODY BONE SCAN [...] blood cell uptake in the right knee. [employer] User, Interfaces - 09/24/2020 5:04 PM EST [...] with no definite evidence for infected prosthesis. [facility] [employer] NUC 3 PHASE LIMITED BONE SCA Non 09-19-2020 IMPRESSION: Findings concerning for loosening or infection in the medial tibial plateau portion of the left knee prosthesis. No evidence of loosening or infection in the right knee. [facility] [employer] NUCLEAR MEDICINE TRIPLE-PHASE BONE SCAN HISTORY: Left [...] or delayed uptake in the right knee. [employer] User, Interfaces - 09/19/2020 2:47 PM EDT [...] loosening or infection in the right knee. [facility] LARGE JOINT/BURSA INJECTION AND/OR ASPIRATION: L kneeon [...] complications The patient was prepped with Chloraprep. [facility] CNOVon 02-23-2019 CN Office Visit (REYMMN ) VIOLETA CORTÉSRYHarris Moreon ([id number]) 1950 M Date Time Provider Department 02/23/19 2:30 PM GADIEL RHODES During your visit today, we recorded the following information about you: Temperature Pulse Respiration Blood pressure 97.4 degrees 69/minute 18/minute 144/87 Weight Height 106.6 kg 1.727 m Gadiel Rhodes MD 02/24/2019 5:45 PM Signed I saw López Moo in my office today for ongoing evaluation [...] local physician and understands to return to [facility] if there is evidence of functional [...] today's CT scan. Referring Provider: GADIEL RHODES [[id number]] Allergies As of Date: 02/23/2019 Noted Allergy Reaction SULFA (SULFONAMIDE ANTIBIOTICS) 03/20/2018 16 - Unknown Comments: Reaction as a kid - unsure Date Reviewed: 02/23/2019 Reviewed by: Gabriela Mclean Ma - Fully Assessed Reason for Visit: Recheck [92] Primary Visit Diagnosis:ILD (interstitial lung disease) ([facility]) [J84.9] Other Visit Diagnosis:Multiple lung nodules [R91.8] [...] by GADIEL RHODES MD on 02/24/19 Normal [facility] CT CHEST WO IVCONon 02-24-[address] CHEST WO IVCON * * *Final Report* * * DATE OF EXAM: Feb 23 2019 12:40PM [facility] 0541 - CT CHEST WO IVCON / [...] lesion. Upper abdomen: Unchanged. IMPRESSION: STABLE CT. Custodial Manager: PSCB Transcribe Date/Time: Feb 23 2019 4:08P Dictated by : LAURA DAVIDSON MD This examination was interpreted and the report reviewed and electronically signed by: LAURA DAVIDSON MD on Feb 23 2019 4:30PM EST [id number] Normal [facility] PROGRESSon 02-23-2019 Protein mass conc HNO ID: [id number] Author: Gadiel Rohdes Service: ? Author Type: Physician Type: Progress [...] local physician and understands to return to [facility] if there is evidence of functional decline. No need for additional CT imaging at this time. 2. Lung nodules. 10 mm subpleural nodule incidentally noted on prior chest CT. Has smoking history but discontinued 35 years ago. Nodule now docimented to be stable since 10/2017. No need for additional surveillance. I will see Mr. Cortés back in 6 months. Normal [facility] Protein mass conc HNO ID: [id number] Author: ALEX Kat (Ct) Service: Radiology Author Type: Clinical Artificial Limb Maker Type: Progress Notes Filed: 02/23/2019 12:42 PM [...] Kat February 23, 2019 12:42 PM Normal [facility] CNOVon 10-16-2018 CNOV Office Visit (PULMMN ) LÓPEZ CORTÉS ([id number]) 1950 M Date Time Provider Department 10/16/18 [...] Diagnosis:Lung nodules [R91.8] Order(s):CT CHEST WO IVCON [[id number]] Order #: [id number] FUTURE Prescriptions as of 10/16/2018 Sig: PANTOPRAZOLE [...] Status:Closed by GADIEL RHODES MD on 10/22/[address] [facility] PROGRESSon 10-16-2018 Protein mass conc HNO ID: [id number] Author: Gadiel Rhodes Service: (none) Author Type: [...] Mr. Cortés back in 6 months. 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 There are no occupational exposures. There [...] No history of dysuria, frequency or incontinence. ATHLETICS DIRECTOR: NA MUSCULOSKELETAL: Negative for joint pain or [...] MD 04/16/2018 10:48 PM Signed . [facility] Note Mr. 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 Mold: No significant exposure. [...] personally reviewed by me Data Reviewed from [facility] (in addition to that noted in HPI, [...] Pre ? ? % ? Date ? 839906 ? Time ?02:22PM ? Height ?169.1 ? [...] management of GERD/heartburn ? Will be seeing americanization teacher (consider nasal probe study/pH study ? Recommend [...] Lisa Hazel MD Internal Medicine PGY-III Pager [phone] Attending Addendum: I have personally interviewed and [...] Rhodes M.D. Chair, Department of Pulmonary Medicine [facility] Referring Provider: SCOTT PEREZ [[id number]] Allergies As of Date: 03/20/2018 Noted Allergy Reaction SULFA (SULFONAMIDE ANTIBIOTICS) 03/20/2018 17 - Unknown Comments: Reaction as a kid - unsure Date Reviewed: 03/20/2018 Reviewed by: Jemal (Robinson) ROBINSON Wilks - Fully Assessed Reason for Visit: Consult [502] Primary Visit Diagnosis:ILD (interstitial lung disease) (HCC) [J84.9] Other Visit Diagnosis:Multiple lung nodules [R91.8] Order(s):SPIROMETRY BASELINE ONLY [[id number]] Order #: [id number] FUTURE LUNG DIFFUSION CAPACITY (DLCO) [[id number]] Order #: [id number] FUTURE Prescriptions as of 03/20/2018 Sig: PANTOPRAZOLE [...] March 20, 2018 Scott Perez MD (via [employer]) Re: López Cortés ( 1950) Dear Dr. 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 There are no occupational exposures. There [...] No history of dysuria, frequency or incontinence. ATHLETICS DIRECTOR: NA MUSCULOSKELETAL: Negative for joint pain or [...] M.D. Chair, Department of Pulmonary Medicine [facility] Cc: Dr. Tess Fuentes [address] [place] [address] Dr. Francis Giron [address] [facility]. [place] [id number] Mr. López Cortés [address] [facility] [address] [place] [address] Encounter Status:Closed by GADIEL RHODES MD on 04/16/18 Normal [facility] PROGRESSon 03-20-2018 Protein mass conc HNO ID: [id number] Author: Gadiel Rhodes Service: (none) Author Type: Physician Type: Progress Notes Filed: 04/16/2018 10:48 PM Note Text: . [facility] Note Mr. 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 Mold: No significant exposure. [...] personally reviewed by me Data Reviewed from [facility] (in addition to that noted in HPI, [...] Pre ? ? % ? Date ? [id number] ? Time ?02:22PM ? Height ?169.1 ? [...] management of GERD/heartburn ? Will be seeing americanization teacher (consider nasal probe study/pH study ? Recommend [...] Lisa Hazel MD Internal Medicine PGY-III Pager [phone] Attending Addendum: I have personally interviewed and [...] Rhodes M.D. 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 There are no occupational exposures. There [...] No history of dysuria, frequency or incontinence. ATHLETICS DIRECTOR: NA MUSCULOSKELETAL: Negative for joint pain or [...] Mr. Cortés back in 6 months. Normal [facility] CT ABDOMEN PELVIS W IV CONTR Michele [...] by:KENDELL Murrelligned by:Christiano Hansen MD10/25/17Final result Normal [facility] CT CHEST W CONTRASTon 2016 CT CHEST [...] by:KENDELL Murrelligned by:Christiano Hansen MD10/25/17Final result Normal [facility] CBC with Diffon 10-25-2017 Abs. Basophil 0.00 k/uL Normal 0.0-0.2 [facility] Comment on above: Performed By: #### C DP, CP ####[facility] [place] [address] Abs.Neutrophil (Seg) 16.04 k/uL High 1.3-9.1 [facility] Comment on above: Performed By: #### C DP, CP ####[facility] [place] [address] Basophils/100 WBC Auto (Bld) 0 % Normal 0-2 [facility] Comment on above: Performed By: #### C DP, CP ####[facility] [place] [address] Blood morphology Normal Normal [facility] Comment on above: Result Comment: Perf ormed at [facility] [address] [place] [address] Performed By: #### C DP, CP ####[facility] [place] [address] Eosinophils 0.00 10*3/uL Normal 0.0-0.4 [facility] Comment on above: Performed By: #### C DP, CP ####[facility] [place] [address] Eosinophils/100 leukocytes 0 % Normal 0-4 [facility] Comment on above: Performed By: #### C DP, CP ####[facility] [place] [address] Lymphocytes 0.96 10*3/uL Low 1.0-4.8 [facility] Comment on above: Performed By: #### C DP, CP ####[facility] [place] [address] Lymphocytes/100 leukocytes 5 % Low 24-44 [facility] Comment on above: Performed By: #### C DP, CP ####[facility] [place] [address] Monocytes 2.10 10*3/uL High 0.1-1.3 [facility] Comment on above: Performed By: #### C DP, CP ####[facility] [place], [place] [address] [place] [address] Monocytes/100 leukocytes 11 % High 1-7 [facility] Comment on above: Performed By: #### C DP, CP ####[facility] [place] [address].[place] [address] Neutrophil (Seg) 84 % High 36-[address] [facility] Comment on above: Performed By: #### C DP, CP ####[facility] [place] [address] Erythrocyte distribution width Auto Ratio (RBC) 14.1 % Normal 11.5-14.9 [facility] Comment on above: Performed By: #### C DP, CP ####[facility] [place] [address].[place] [address] Erythrocytes (RBC) 5.37 10*6/uL Normal 4.5-5.9 [facility] Comment on above: Performed By: #### C DP, CP ####[facility] [place] [address] Hematocrit (HCT) 50.7 % Normal 41-[address] [facility] Comment on above: Performed By: #### C DP, CP ####[facility] [place] [address] Hemoglobin mass conc (Bld) 16.8 g/dL Normal 13.5-17.5 [facility] Comment on above: Performed By: #### C DP, CP ####[address] [address] MCH 31.2 pg Normal 26-34 [facility] Comment on above: Performed By: #### C DP, CP ####[address] [address] MCHC mass conc (RBC) 33.1 g/dL Normal 31-37 [facility] Comment on above: Performed By: #### C DP, CP ####[address] [address] MCV 94.4 fL Normal 80-100 [facility] Comment on above: Performed By: #### C DP, CP ####[address] [address] Platelet mean volume (PMV) 9.0 fL Normal 6.0-12.0 [facility] Comment on above: Performed By: #### C DP, CP ####[address] [address] Platelets 227 10*3/uL Normal 150-450 [facility] Comment on above: Performed By: #### C DP, CP ####[address] [address] WBC (Leukocytes) 19.1 10*3/uL High 3.5-11.0 [facility] Comment on above: Performed By: #### C DP, CP ####[address] [address] Auto Diff Performed NOT REPORTED Normal [facility] Comment on above: Performed By: #### C DP, CP ####[address] [place] [address] Erythrocyte morphology NOT REPORTED Normal [facility] Comment on above: Performed By: #### C DP, CP ####[facility] [place] [address] Granulocytes/100 WBC (Bld) NOT REPORTED Normal 0.00-0.30 [facility] Comment on above: Performed By: #### C DP, CP ####[place] [address] [place] [address] Immature granulocytes #/vol (Bld) NOT REPORTED Normal 0 [facility] Comment on above: Performed By: #### C DP, CP ####[address] [address] Platelets NOT REPORTED Normal [facility] Comment on above: Performed By: #### C DP, CP ####[address] [address] WBC Morphology NOT REPORTED Normal [facility] Comment on above: Performed By: #### C DP, CP ####[address] [address] Comp Metabolic Profon 2016 (cont.) Normal [facility] Comment on above: Result Comment: Aver age GFR for 60-69 years old: 85 mL/min/1.73sq mChronic Kidney Disease: <60 mL/min/1.73sq mKidney failure: <15 mL/min/1.73sq meGFR calculated using average adult body mass. Additional eGFR calculator available at:[email or web address] at [facility] [address] [place] [address] Performed By: #### C DP, CP ####[address] [address] Alanine aminotransferase (ALT) 35 U/L Normal 5-41 [facility] Comment on above: Performed By: #### C DP, CP ####[facility] [place] [address] Albumin 4.4 g/dL Normal 3.5-5.2 [facility] Comment on above: Performed By: #### C DP, CP ####[facility] [place] [address] Alkaline Phos 128 U/L Normal 40-129 [facility] Comment on above: Performed By: #### C DP, CP ####[facility] [place] [address] [place] [address] Anion gap 14 mmol/L Normal 9-17 [facility] Comment on above: Performed By: #### C DP, CP ####[facility] [place] [address] [place] [address] Aspartate aminotransferase (AST) 50 U/L High <40 [facility] Comment on above: Performed By: #### C DP, CP ####[facility] [place] [address] Bilirubin Ql (U) 1.12 mg/dL Normal 0.3-1.[address] [facility] Comment on above: Performed By: #### C DP, CP ####[facility] [place] [address] [place] [address] Calcium 9.2 mg/dL Normal 8.6-10.4 [facility] Comment on above: Performed By: #### C DP, CP ####[facility] [place], [place] [address]jennie MayAsp[place] [address] Chloride 107 mmol/L Normal 98-107 [facility] Comment on above: Performed By: #### C DP, CP ####[facility] [facility] [place] [address] CO2 23 mmol/L Normal 20-31 [facility] Comment on above: Performed By: #### C DP, CP ####[facility] [facility] [place] [address] Creatinine 1.30 mg/dL High 0.70-1.20 [facility] Comment on above: Performed By: #### C DP, CP ####[facility] [place] [address].[place] [address] eGFR (non-black) 55 mL/min/{1.73_m2} Low >60 [facility] Comment on above: Performed By: #### C DP, CP ####[facility] [place] [address].[place] [address] eGFR (non-black) mL/min/{1.73_m2} Normal >60 [facility] Comment on above: Performed By: #### C DP, CP ####[address] [address] Glucose mass conc 111 mg/dL High 70-99 [facility] Comment on above: Performed By: #### C DP, CP ####[facility] [place] [address].[place] [address] Potassium molar conc 4.3 mmol/L Normal 3.7-5.3 [facility] Comment on above: Performed By: #### C DP, CP ####[address] [address] Protein 7.3 g/dL Normal 6.4-8.3 [facility] Comment on above: Performed By: #### C DP, CP ####[address] [address] Sodium 144 mmol/L Normal 135-144 [facility] Comment on above: Performed By: #### C DP, CP ####[facility] [place] [address] Urea nitrogen 24 mg/dL High 8-23 [facility] Comment on above: Performed By: #### C DP, CP ####[facility] [place] [address] Albumin/Globulin Ratio NOT REPORTED Normal 1.0-2.5 [facility] Comment on above: Performed By: #### C DP, CP ####[facility] [facility] [place] [address] BUN/CRE Ratio NOT REPORTED Normal 9-20 [facility] Comment on above: Performed By: #### C DP, CP ####[facility] [place] [address] Staging: NOT REPORTED Normal [facility] Comment on above: Performed By: #### C DP, CP ####[facility] [place] [address] Vital Signs Date Time Vital Sign Value Performing Clinician Facility 08-14-2024 14:41-0400 Diastolic blood pressure 80 mm[Hg] Obey NILL [facility] 08-14-2024 14:41-0400 Heart rate 68 /min Obey NILL [facility] 08-14-2024 14:41-0400 Respiratory rate 16 /min Obey NILL [facility] 08-14-2024 14:41-0400 Systolic blood pressure 118 mm[Hg] Obey NILL [facility] 01-31-2024 08:42-0400 Blood Pressure Location Obey NILL [facility] [place] 01-31-2024 08:42-0400 Diastolic blood pressure 82 mm[Hg] Obey NILL [facility] 01-31-2024 08:42-0400 Heart rate 83 /min Obey NILL [facility] [place] 01-31-2024 08:42-0400 Respiratory rate 16 /min Obey NILL [facility] 01-31-2024 08:42-0400 Systolic blood pressure 120 mm[Hg] Obey NILL [facility] 11-23-2023 08:25-0500 Body height 172.7 cm Bhavana ZmagsN-TRADE SHOW SPECIALIST Work Phone: [facility] 11-23-2023 08:25-0500 Body mass index (BMI) [Ratio] 34.21 kg/m2 Bhavana [employer] UPPER MARKER-TRADE SHOW SPECIALIST Work Phone: [facility] 11-23-2023 08:25-0500 Body weight 102.06 kg Bhavana Nila UPPER MARKER-TRADE SHOW SPECIALIST Work Phone: [facility] 05-16-2023 09:32-0400 Blood Pressure Location Darwin RICHMOND [facility] 05-16-2023 09:32-0400 Diastolic blood pressure 75 mm[Hg] Darwin RICHMOND [facility] 05-16-2023 09:32-0400 Heart rate 75 /min Darwin RICHMOND [facility] 05-16-2023 09:32-0400 Respiratory rate 16 /min Darwin RICHMOND [facility] 05-16-2023 09:32-0400 Systolic blood pressure 129 mm[Hg] Darwin RICHMOND [facility] 06-16-2022 10:13-0400 Body height 172.7 cm Barak Hebert MD Work Phone: [facility] 06-16-2022 10:13-0400 Body mass index (BMI) [Ratio] 35.28 kg/m2 Barak Hebert MD Work Phone: [facility] 06-16-2022 10:13-0400 Body weight 105.23 kg Barak Hebert MD Work Phone: [facility] 05-26-2022 07:57-0400 Body height 172.7 cm Gadiel Floyd MD Work Phone: [facility] 05-26-2022 07:57-0400 Body mass index (BMI) [Ratio] 35.28 kg/m2 Gadiel Floyd MD Work Phone: [facility] 05-26-2022 07:57-0400 Body temperature 97.7 [degF] Gadiel Floyd MD Work Phone: [facility] 05-26-2022 07:57-0400 Body weight 105.23 kg Gadiel Floyd MD Work Phone: [facility] 02-17-2022 12:58-0400 Body height 172.7 cm Gadiel Floyd MD Work Phone: [facility] 02-17-2022 12:58-0400 Body mass index (BMI) [Ratio] 36.81 kg/m2 Gadiel Floyd MD Work Phone: [facility] 02-17-2022 12:58-0400 Body temperature 98.2 [degF] Gadiel Floyd MD Work Phone: [facility] 02-17-2022 12:58-0400 Body weight 109.8 kg Gadiel Floyd MD Work Phone: [facility] 10-29-2021 11:09-0500 Body height 172.7 cm Bhavana Addison UPPER MARKER-TRADE SHOW SPECIALIST Work Phone: [facility] 10-29-2021 11:09-0500 Body mass index (BMI) [Ratio] 36.49 kg/m2 Bhavana Addison UPPER MARKER-TRADE SHOW SPECIALIST Work Phone: [facility] 10-29-2021 11:09-0500 Body temperature 97.2 [degF] Bhavana Nila UPPER MARKER-TRADE SHOW SPECIALIST Work Phone: [facility] 10-29-2021 11:09-0500 Body weight 108.86 kg Bhavana Nila UPPER MARKER-TRADE SHOW SPECIALIST Work Phone: [facility] 11-19-2020 11:08-0500 BMI (Body Mass Index) 34.21 kg/m2 [facility] 11-19-2020 11:08-0500 Body Temperature 97.59 [degF] [facility] 11-19-2020 11:08-0500 Body weight 102.06 kg [facility] 11-19-2020 11:08-0500 Height 172.7 cm [facility] 10-29-2020 15:11-0500 BP Diastolic 72 mm[Hg] [facility] 10-29-2020 15:11-0500 BP Systolic 148 mm[Hg] [facility] 10-29-2020 15:11-0500 Pulse (Heart Rate) 74 /min [facility] 10-29-2020 15:11-0500 Pulse Oximetry 100 % [facility] 10-29-2020 15:11-0500 Respiratory Rate 16 /min [facility] 10-29-2020 08:00-0500 Body Temperature 97.39 [degF] [facility] 10-28-2020 15:15-0500 BMI (Body Mass Index) 32.23 kg/m2 [facility] 10-28-2020 15:15-0500 Body weight 96.16 kg [facility] 10-28-2020 15:15-0500 Height 172.7 cm [facility] 09-11-2020 13:55-0400 BMI (Body Mass Index) 31.96 kg/m2 [facility] 09-11-2020 13:55-0400 Body Temperature 97.11 [degF] [facility] 09-11-2020 13:55-0400 Body weight 95.35 kg [facility] 09-11-2020 13:55-0400 Height 172.7 cm [facility] Encounters Encounter Date Encounter Type Care Provider Facility Start: 10-23-2024 ambulatory Obey R NILL Facility : Don Start: 09-18-2024 End: 09-18-2024 ambulatory Obey R NILL Facility: Don Start: 09-18-2024 End: 09-18-2024 Patient encounter procedure Obey R NILL [facility] [place] Start: 09-14-2024 ambulatory Obey R NILL Facility : Mara Start: 08-29-2024 End: 08-29-2024 ambulatory Obey R NILL Facility:[id number] Start: 08-14-2024 End: 08-14-2024 ambulatory Obey R NILL Facility: Don Start: 08-14-2024 End: 08-14-2024 Patient encounter procedure Obey R NILL [facility] [place] Start: 06-05-2024 End: 06-05-2024 ambulatory SOLOMON Leo IGNACIO Not Available Start: 03-06-2024 End: 03-06-2024 ambulatory Obey R NILL Facility: Don Start: 03-06-2024 End: 03-06-2024 Patient encounter procedure Obey R NILL General Surgery Nill/Said Don Start: 02-28-2024 End: 02-28-2024 ambulatory Obey R NILL Facility:SHANEKA Ochoa Start: 02-28-2024 End: 02-28-2024 Patient encounter procedure Obey R NILL General Surgery Nill/Carina Ochoa Start: 01-31-2024 End: 01-31-2024 ambulatory Obey ALAS Facility:SHANEKA Terry Start: 01-31-2024 End: 01-31-2024 Patient encounter procedure Obey ALAS [facility] [place] Start: 01-20-2024 ambulatory Obey ALAS Facility:Sheri Ochoa Start: 11-23-2023 End: 11-23-2023 Office outpatient visit 15 minutes Bhavana Addison [employer] Work Phone: [facility] Comment on above: Hx of total knee art hroplasty, left (Primary Dx) Start: 11-23-2023 End: 11-23-2023 Subsequent hospital visit by physician Bhavana Addison [employer] Work Phone: [facility] Start: 05-16-2023 End: 05-16-2023 Patient encounter procedure Darwin RICHMOND [facility] Start: 01-27-2023 End: 01-28-[address] TESS FUENTES . 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 Facility:[facility] Start: 04-13-2022 End: 04-14-[address] TESS FUENTES . Facility:[facility] Start: 04-10-2022 End: 04-11-[address] TESS FUENTES . Facility:[facility] Start: 04-09-2022 End: 04-10-[address] TESS FUENTES . Facility:[facility] Start: 02-17-2022 ambulatory TESS Shelley Vanessa [facility] Start: 02-17-2022 End: 02-17-2022 Office outpatient new 30 minutes Gadiel Floyd MD Work Phone: [facility] Comment on above: Bilateral thumb pain (Primary Dx); Primary osteoarthritis of first carpometacarpal joint of left hand Start: 02-17-2022 End: 02-17-2022 Subsequent hospital visit by physician Gadiel Floyd MD Work Phone: [facility] Start: 12-17-2021 ambulatory BARAK HEBERT [facility] Start: 12-17-2021 End: 12-17-2021 Office outpatient visit 15 minutes Barak Hebert MD Work Phone: [facility] Comment on above: Bilateral thumb pain (Primary Dx); Left knee pain, unspecified chronicity Start: 11-27-2021 ambulatory [employer] Start: 10-29-2021 End: 10-29-2021 Postop follow up visit related to original px Barak Hebert MD Work Phone: [facility] Comment on above: Hx of total knee art hroplasty, left (Primary Dx) Start: 10-29-2021 End: 10-29-2021 Subsequent hospital visit by physician Bhavana Addsion [employer] Work Phone: [facility] Start: 02-26-2021 End: 02-26-2021 Subsequent hospital visit by physician Barak Hebert Work Phone: [facility] Rad[facility] Start: 11-19-2020 End: 11-19-2020 Postop follow up visit related to original px Kaila Richmond Work Phone: [facility] Orthoped[facility] Comment on above: Hx of total knee art hroplasty, left (Primary Dx); Postoperative pain of knee Start: 11-19-2020 End: 11-19-2020 Subsequent hospital visit by physician Kaila Richmond Work Phone: [facility] Start: 10-28-2020 End: 10-29-2020 Evaluation and management of inpatient Barak Pradeep Work Phone: [facility] ICU Comment on above: Mechanical loosening of internal left knee prosthetic joint Start: 09-24-2020 End: 09-24-2020 Subsequent hospital visit by physician Barak Hebert Work Phone: [facility] Nuclear Medicine Comment on above: Arrived Start: 09-23-2020 End: 09-23-2020 Subsequent hospital visit by physician Barak Hebert Work Phone: [facility] Nuclear Medicine Comment on above: Arrived Start: 09-19-2020 End: 09-19-2020 Subsequent hospital visit by physician Barak Hebert Work Phone: [facility] Nuclear Medicine Comment on above: Arrived Start: 09-11-2020 End: 09-11-2020 Subsequent hospital visit by physician Barak Hebert Work Phone: [facility] Start: 09-11-2020 End: 09-11-2020 Office outpatient new 45 minutes Barak Hebert Work Phone: [facility] Comment on above: Left knee pain, unsp ecified chronicity (Primary Dx); Pain in prosthetic joint, initial encounter Start: 02-23-2019 End: 02-26-2019 Patient encounter procedure GADIEL RHODES [facility] Start: 10-16-2018 End: 10-23-2018 Patient encounter procedure GADIEL RHODES [facility] Start: 03-20-2018 End: 04-19-2018 Patient encounter procedure GADIEL RHODES [facility] Start: 11-23-2017 End: 11-24-2017 Ambulatory DEFAULT PHYSICIAN Facility:[facility] Start: 10-25-2017 End: 10-26-2017 Emergency department patient visit ROBERTO Garcia YASMANI [facility] Procedures Date Procedure Procedure Detail Performing Clinician Start: 08-29-2024 Excisional biopsy of basal cell carcinoma Obey ALAS Start: 02-28-2024 Excision of basal ce ll carcinoma Obey ALAS Start: 01-27-[address] SHIRLEY FUENTES . Comment on above: Performed By: #### P SASC, VITAD #### [facility] [address] [address] [address] Braulio Fritz Start: 04-10-[address] SHIRLEY FUENTES . Comment on above: Performed By: #### B 12FOL, VITAD, PSASC, IRON #### [facility] [address] [address] [address] 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 specific culture [employer] Phone: Start: 10-28-2020 Bacteria identified in Body fluid by Culture [employer] Phone: Start: 10-28-2020 End: 10-28-2020 Revj tot knee arthrp fem&entire tibial compone Baark Hebert Work Phone: Start: 10-28-2020 Blood group [...] knee Obey EVETTE Repair of meniscus Obey Anna WOODS Revision of knee arthroplasty Obey VALLESHarris Plan of Treatment Date Care Activity Detail Author Start: 07-22-2023 Influenza vaccination INFLUENZA VACC INE (#1) [facility] Start: 08-25-2022 End: 08-25-2022 Patient encounter procedure 08/25/2022 Office Visit Orthopaedics Gadiel Floyd MD [address] [place] [address] [facility] Start: 07-22-2022 Influenza vaccination INFLUENZA VACC INE (#1) [facility] Start: 06-16-2022 End: 06-16-2022 Patient encounter procedure 06/16/2022 Office Visit Orthopaedics Barak Hebert MD [address] [place] [address] [facility] Start: 05-26-2022 End: 05-26-2022 Patient encounter procedure 05/26/2022 Office Visit Orthopaedics Gadiel Floyd MD [address] [facility] [place] [address] [facility] Start: 04-19-2022 COVID-19 VACCINE (2 - Pfizer series) COVID-19 VACCINE (2 - Pfizer series) [facility] Start: 02-17-2022 End: 02-11-2023 XR Thumb - left Views [employer] [facility] Work Phone: Comment on above: 1 Occurrences starti ng 02/17/2022 until 02/17/2022 Expected: 02/17/2022 , Expires: 02/11/2023 Start: 02-17-2022 End: 02-11-2023 XR Thumb - right Views [employer] [facility] Work Phone: Comment on above: 1 Occurrences starti ng 02/17/2022 until 02/17/2022 Expected: 02/17/2022 , Expires: 02/11/2023 Start: 02-17-2022 End: 02-17-2022 Patient encounter procedure 02/17/2022 Office Visit Orthopaedics Gadiel Floyd MD [address] [place] [address] [facility] Start: 10-29-2021 End: 10-29-2021 Office Visit 10/29/2021 Office Visit Orthopaedics Bhavana Addison, [employer] SPECIALIST [address] [place] [address], [place] [address] [phone] [facility] Start: 07-22-2021 Influenza vaccination [facility] Start: 02-19-2021 End: 02-19-2021 Office Visit 02/19/2021 Office Visit Orthopaedics Barak Hebert MD [address] [facility] [place] [address] [phone] [facility] Start: 11-19-2020 End: 11-19-2020 Office Visit 11/19/2020 Office Visit Orthopaedics Kaila Richmond PA-C [address] [place] [address] [phone] [facility] Start: 10-28-2020 End: 10-28-2020 Hospital Encounter [facility] Comment on above: Mechanical loosening of internal left knee prosthetic joint, initial encounter REVISION ARTHROPLAST Y KNEE left Start: 10-02-2020 End: 10-02-2020 Pre-Operative Nurse Assessment 10/02/2020 Pre-Operative Nurse Assessment Internal Medicine [facility] Pre Admission Start: 09-24-2020 Hospital Encounter 09/24/2020 Hospital Encounter Nuclear Medicine Barak Hebert MD [address] [place] [address] [phone] [facility] Start: 09-23-2020 End: 09-23-2020 Appointment 09/23/2020 Appointment Nuclear Medicine Barak Hebert MD [address] [place] [address] [phone] [facility] Start: 09-19-2020 End: 09-19-2020 Hospital Encounter [facility] Nuclea r Medicine Start: 09-11-2020 End: 09-11-2021 Nuclear medicine imaging procedure NUC BONE MARROW LIMITED AREA Imaging Routine Pain in prosthetic joint, initial encounter Expected: 09/11/2020, Expires: 09/11/2021 [facility] Comment on above: Expected: 09/11/2020 , Expires: 09/11/2021 Start: 09-11-2020 End: 09-11-2021 Nuclear medicine procedure NUC WBC STUDY Imaging Routine Pain in prosthetic joint, initial encounter Expected: 09/11/2020, Expires: 09/11/2021 [employer] [facility] Comment on above: Expected: 09/11/2020 , Expires: 09/11/2021 Start: 09-11-2020 End: 09-11-2021 Radioisotope scan of bone NUC BONE SCAN WHOLE BODY Imaging Routine Pain in prosthetic joint, initial encounter Expected: 09/11/2020, Expires: 09/11/2021 [email or web address] [facility] Comment on above: Expected: 09/11/2020 , Expires: 09/11/2021 Start: 08-21-2018 Pneumococcal vaccination PNEUM OCOCCAL VACCINE SERIES (2 - PCV) [facility] Start: 01-25-2016 Abdominal aortic aneurysm screening ABDOMINAL AORTIC ANEURYSM HIGH RISK SCREEN [facility] Start: 01-25-2016 Pneumococcal vaccination [facility] Start: 2001 Colonoscopy COLORECTAL CAN CER SCREENING DISCUSSION [facility] Start: 2001 Prostate specific antigen measurement PROSTATE CANCER SCREENING DISCUSSION [facility] Start: 2001 Zoster vaccine hzv l preet for subcutaneous use ZOSTER (SHINGLES) VACCINE (1 of 2) [facility] Start: 01-25-1996 Colonoscopy COLORECTAL CAN CER SCREENING DISCUSSION [facility] Start: 01-25-1996 Screening for malign ant neoplasm of colon COLORECTAL CANCER SCREENING DISCUSSION [facility] Start: 1991 Fasting lipid profile LIPID SCREENIN G [facility] Start: 1991 Lipid panel LIPID SCREENING [facility] Start: 1970 Third diphtheria, tetanus and acellular pertussis (DTaP) vaccination TDAP (ADULT) [facility] Start: 1969 Tetanus vaccination TETANUS [facility] Start: 1967 COVID-19 VACCINE (1) COVID-19 VACCIN E (1) [facility] Start: 1963 COVID-19 VACCINE (1) COVID-19 VACCIN E (1) [facility] Start: 01-25-1956 COVID-19 VACCINE (1) COVID-19 VACCIN E (1) [facility] Start: 1951 Hepatitis C antibody , confirmatory test HEPATITIS C VIRUS SCREENING [facility] Start: 1950 Hepatitis C screening HEPATITI S C VIRUS SCREENING [facility] Start: 1950 Tetanus vaccination TETANUS [facility] ANAEROBE CULTURE [facility] Comment on above: Release Upon Orderin g for 1 Occurrences starting 10/28/2020 Bacteria identified Cx Nom (Body fld) BODY FLUID CULTURE AND DIRECT SMEAR Microbiology Routine 10/28/2020 12:35 PM EST [facility] Bacteria identified Cx Nom (Unsp spec) BACTERIAL CULTURE AND DIRECT SMEAR, LESION, TISSUE, DEVICE Microbiology Routine Mechanical loosening of internal left knee prosthetic joint, initial encounter Release Upon Ordering for 1 Occurrences starting 10/28/2020 [facility] Comment on above: Release Upon Orderin g for 1 Occurrences starting 10/28/2020 Fungus identified Cx Nom (Unsp spec) [facility] Comment on above: Release Upon Orderin g for 1 Occurrences starting 10/28/2020 Mycobacterium sp identified Org specific cx Nom (Tiss) ACID FAST CULTURE, TISSUE Microbiology Routine Mechanical loosening of internal left knee prosthetic joint, initial encounter Release Upon Ordering for 1 Occurrences starting 10/28/2020 [facility] Comment on above: Release Upon Orderin g for 1 Occurrences starting 10/28/2020 Mycobacterium sp identified Org specific cx Nom (Unsp spec) [facility] End: 09-23-2020 Nuclear medicine imaging procedure NUC BONE MARROW LIMITED AREA Imaging Routine Pain in prosthetic joint, initial encounter 1 Occurrences starting 09/23/2020 until 09/23/2020 [facility] Comment on above: 1 Occurrences starti ng 09/23/2020 until 09/23/2020 Nuclear medicine marycarmen ging procedure NUC BONE MARROW LIMITED AREA Imaging Routine Pain in prosthetic joint, initial encounter 09/23/2020 12:09 PM [facility] End: 09-23-2020 Nuclear medicine procedure NUC WBC STUDY Imaging Routine Pain in prosthetic joint, initial encounter 1 Occurrences starting 09/23/2020 until 09/23/2020 [facility] Comment on above: 1 Occurrences starti ng 09/23/2020 until 09/23/2020 Nuclear medicine procedure NUC WBC STUDY Imaging Routine Pain in prosthetic joint, initial encounter 09/23/2020 6:01 AM [facility] Radiography for bone length studies [facility] TISSUE CULTURE [facility] X-ray of left knee [facility] X-ray of left knee XR KNEE LEFT 3 VIEWS Imaging Routine Hx of total knee arthroplasty, left 10/29/2021 10:55 AM EST [facility] XR Knee - left 3 Views XR KNEE L EFT 3 VIEWS Imaging Routine History of revision of total replacement of left knee joint 06/16/2022 9:41 AM EDT [facility] XR Knee - left 3 Views XR KNEE L EFT 3 VIEWS Imaging Routine Hx of total knee arthroplasty, left 11/23/2023 8:19 AM [facility] Immunizations Immunization Date Immunization Notes Care Provider Fa hienty 08-21-2023 influenza virus vacc ine, unspecified formulation Obey ALAS [facility] [place] 09-24-2022 SARS-CoV-2 (COVID-19 ) [id number].[id number] Darwin RICHMOND [facility] 08-31-2022 influenza virus vacc ine, unspecified formulation Darwin RICHMOND [facility] 03-29-2022 SARS-CoV-2 mRNA (vfvrrbjacgr-qbwy-clnxqj e) vaccine Darwin RICHMOND [facility] 09-21-2021 SARS-CoV-2 (COVID-19 ) Ad26 vaccine, recombinant Darwin RICHMOND [facility] 09-13-2021 SARS-CoV-2 (COVID-19 ) mRNA-1273 vaccine Darwin RICHMOND [facility] 02-19-2021 SARS-CoV-2 (COVID-19 ) Ad26 vaccine, recombinant Darwin RICHMOND [facility] 02-04-2021 SARS-CoV-2 (COVID-19 ) mRNA-1273 vaccine Darwin RICHMOND [facility] 01-19-2021 SARS-CoV-2 (COVID-19 ) Ad26 vaccine, recombinant Darwin RICHMOND [facility] 01-07-2021 SARS-CoV-2 (COVID-19 ) mRNA-1273 vaccine Darwin RICHMOND [facility] 09-03-2020 influenza virus vacc ine, unspecified formulation Bhavana Addison APRN-[employer] SH[employer] SPECIALIST Work Phone: [facility] 09-04-2019 influenza virus vacc ine, unspecified formulation Darwin [employer] [facility] 08-22-2018 influenza virus vacc ine, unspecified formulation Darwin [employer] [facility] 08-24-2017 influenza virus vacc ine, unspecified formulation [employer] [facility] 08-21-2017 pneumococcal polysaccharide vaccine, 23 valent Darwin [employer] [facility] 08-01-2017 pneumococcal polysaccharide vaccine, 23 valent Darwin [employer] [facility] 06-27-2017 pneumococcal polysaccharide vaccine, 23 valent Darwin [employer] [facility] 09-09-2016 influenza virus vacc ine, unspecified formulation Darwin [employer] [facility] Payers Date Payer Category Payer Unknown [id number] 2020 Unknown 2020 Unknown [id number] 2017 Unknown [id number] 2016 Medicare [id number] 2016 Medicare MEDICARE MEDICAR E A AND B [id number] 2016-Present [address] [place] [address] [id number] 1959 Medicare [id number] 1959 Private Health Insurance I [id number] 1959 Unknown [id number] 1951 Unknown [id number] 2.16.840.1.387667.3.579.2.9 83 1951 Unknown [id number] 2.16.840.1.494069.3.579.2.9 83 1951 Unknown [id number] 2.16.840.1.049853.3.579.2.9 83 1951 Unknown [id number] 2.16.840.1.814557.3.579.2.9 83 1951 Unknown [id number] 2.16.840.1.114749.3.579.2.9 83 1951 Unknown [id number] 2.16.840.1.980182.3.579.2.9 83 1951 Unknown [id number] 2.16.840.1.753683.3.579.2.9 83 1951 Unknown [id number] 2.16.840.1.841069.3.579.2.9 83 1951 Unknown [id number] 2.16.840.1.218425.3.579.2.5 93 1951 Unknown [id number] 2.16.840.1.237507.3.579.2.5 93 1951 Unknown [id number] 2.16.840.1.554394.3.579.2.5 93 1951 Unknown [id number] 2.16.840.1.905474.3.579.2.5 93 1951 Unknown [id number] 2.16.840.1.398432.3.579.2.5 93 1951 Unknown [id number] 2.16.840.1.066288.3.579.2.1 259 1951 Unknown [id number] 2.16.840.1.331295.3.579.2.7 27 1951 Unknown [id number] 2.16.840.1.964804.3.579.2.7 27 1951 Unknown [id number] 2.16.840.1.888409.3.579.2.7 27 1951 Unknown [id number] 2.16.840.1.166866.3.579.2.7 27 1951 Unknown [id number] 2.16.840.1.453689.3.579.2.7 27 1951 Unknown [id number] 2.16.840.1.303751.3.579.2.7 27 1951 Unknown [id number] 2.16.840.1.095463.3.579.2.7 27 1951 Unknown [id number] 2.16.840.1.783877.3.579.2.7 27 1951 Unknown [id number] 2.16.840.1.113578.3.579.2.7 27 Social History Date Type Detail Facility Start: 09-11-2020 End: 09-18-2024 Tobacco smoking status NHIS Former smoker [facility] History of tobacco use Cigarette Smoker [facility] Start: 09-11-2020 End: 11-23-2023 Tobacco use and exposure Never used [facility] Start: 09-11-2020 End: 11-23-2023 Alcohol intake Ex-drinker (finding) [facility] Start: 1950 Sex Assigned At Not on file [facility] Start: 10-02-2020 End: 11-23-2023 Tobacco Comment quit 40 yrs ago [facility] Exposure to SARS-CoV -2 (event) Not sure [facility] Start: 10-01-2020 Tobacco smoking status Never s moked tobacco (finding) [facility] Start: 11-23-2023 Sex Assigned At Male [facility] History of tobacco use Current smoker [facility] Start: 11-23-2023 History of Social function [facility] Tobacco smoking status Never [facility] [place] Medical Equipment Procedure Code Equipment Code Equipment [...] 10-28-2020 Functional Status Date Assessment Result Facility 09-18-2024 Functional Status N/A [facility] 08-14-2024 Functional Status N/A [facility] 01-31-2024 Functional Status N/A [facility] [place] 05-16-2023 Functional Status N/A [facility] Clinical Notes 10-29-2021 to 09-12-2024 Maria G Ford - 11/23/2023 8:40 AM Rosa Addison APRN-CARINE - 11/23/2023 8:40 AM Houston Bonner LPN - 06/16/2022 10:00 AM Suhas Hebert MD - 06/16/2022 10:00 AM EDT Note Date & Type Note Facility 09-12-2024 Note Nurse Consultation N ote Reason for Visit suture removal Assessment/Plan Patient presents in office for suture removal. Sutures removed from posterior left pinna with the exception of one. This suture was imbedded around area of edema. Incision well healed, small area of edema, without erythema or drainage. Patient has follow up next week. Will attempt removal of remaining suture at that time. Medications irbesartan 300 mg Tab, 300 mg= 1 tab(s), Oral, Daily Pantoprazole [address] Tab, 40 mg= 1 tab(s), Oral, Daily, 3 refills pravastatin 40 mg Tab, 40 mg= 1 tab(s), Oral, Daily tadalafil 10 mg Tab, See Instructions, PRN, 5 refills temazepam 15 mg Cap, Oral, Once a day (at bedtime) Allergies sulfamethoxazole (Unknown) Immunizations Vaccine Date Status influenza virus vaccine, inactivated 08/2023 Recorded SARS-CoV-2 (COVID-19) [id number].[id number] 09/24/2022 Recorded influenza virus vaccine, inactivated 08/31/2022 Recorded SARSCoV2 mRNA(gfnufeqnm-mumk-srpbpi) vac 03/29/2022 Recorded SARS-CoV-2 (COVID-19) Ad26 vaccine [...] Recorded influenza virus vaccine, inactivated 09/09/2016 Recorded [facility] 01-31-2024 Note Chief Complaint consultation for skin [...] virus vaccine, inactivated 08/2023 Recorded SARS-CoV-2 (COVID-19) [id number] 09/24/2022 Recorded influenza virus vaccine, inactivated 08/31/2022 Recorded SARSCoV2 mRNA(yadjbhjdp-layd-qptism) vac 03/29/2022 Recorded SARS-CoV-2 (COVID-19) Ad26 vaccine 09/2021 Recorded SARS-CoV-2 (COVID-19) (more content not included)... [facility] Comment on above: Result Comment: Elec tronically Signed By: EVETTE RILEY, Obey Varela\Date and Time Signed: 01/31/24 09:05 EDT 11-23-2023 History of Present illness Narrative Ortho Nurse - Established Patient Intake Room#: 5 Date: 11/23/2023 8:26 AM Patient: López Cortés MR#: [id number] : 1950 Age: 73 y.o. 3yr L [...] antibiotics. López is an established patient of [facility]. He is here today for followup. He [...] his exercise program will resolve his symptoms. (DOC:[id number]) I have reviewed the findings of the clinical family support worker and agree with their assessment. Bhavana Addison APRN-CARINE Ortho Nurse - Established Patient Intake Room#: 5 Date: 11/23/2023 8:26 AM Patient: López Cortés MR#: [id number] : 1950 Age: 73 y.o. 3yr L [...] and sulfa antibiotics. documented in this encounter [facility] 05-16-2023 Hospital Discharge instructions Patient Education [...] Follow these instructions at home: Medicines Take ofiv-txi-rjgsppu and prescription medicines only as told by [...] provider. Document Revised: 02/03/2022 Document Reviewed: 02/03/2022 [employer] Patient Education 2022 [employer] Follow Up Care 01/26/2022 15:47:19 With:ISABEL RILEY, Darwin Moreno, URL Address: [address] [place], [place] [id number]- When: Unknown Comments:ANDRAN [facility] Rufino 06-16-2022 History of Present illness Narrative Ortho Nurse - Established Patient Intake Room#: 1 Left Knee Revision checkup, doing great , some pain of 2 when doing steps, Clindamycin was ordered today for dental prophylaxis Date: 06/16/2022 10:17 AM Patient: López Cortés MR#: [id number] : 1950 Age: 72 y.o. Referring Physician: [...] have reviewed the findings of the clinical family support worker and agree with their assessment. Ortho Nurse - Established Patient Intake Room#: 1 Left Knee Revision checkup, doing great , some pain of 2 when doing steps, Clindamycin was ordered today for dental prophylaxis Date: 06/16/2022 10:17 AM Patient: López Cortés MR#: [id number] : 1950 Age: 72 y.o. Referring Physician: [...] and sulfa antibiotics. documented in this encounter [facility] 05-26-2022 History of Present illness Narrative [...] at that time. documented in this encounter [facility] 02-17-2022 History of Present illness Narrative [...] shots have helped. documented in this encounter [facility] 12-17-2021 History of Present illness Narrative HPI: López is here today for evaluation of his operative knee. 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 He was last evaluated on 10/29/21 by my TRADE SHOW SPECIALIST, he was instructed to use Voltaren gel [...] have reviewed the findings of the clinical family support worker and agree with their assessment. Ortho Nurse Established Patient Intake Room#: 2---Visit today to follow -up on Left knee pain. He has no pain when resting or sleeping. The pain starts after long walks or using stairs. He had a left TKA on 10-29-20. His pain today is a 3. Date: 12/17/2021 10:55 AM Patient: López Cortés MR#: [id number] : 1950 Age: 71 y.o. Referring Physician: [...] 12/17/2021 10:55 AM Patient: López Cortés MR#: [id number] : 1950 Age: 71 y.o. Referring Physician: [...] and sulfa antibiotics. documented in this encounter [facility] 10-29-2021 History of Present illness Narrative [...] on face to face time with patient. MARK Richardson I have reviewed the findings of the clinical family support worker and agree with their assessment. Ortho Nurse Established Patient Intake Room#: 4 Date: 10/29/2021 11:10 AM Patient: López Cortés MR#: [id number] : 1950 Age: 71 y.o. 1yr F/U [...] daily. pantoprazole [address] tablet Take 40 mg by mouth daily. pravastatin [...] 10/29/2021 11:10 AM Patient: López Cortés MR#: [id number] : 1950 Age: 71 y.o. 1yr F/U [...] and sulfa antibiotics. documented in this encounter [facility] Evaluation + Plan note Future Appointments Appointment Date:05/16/2023 09:45:00 AM Scheduled Provider:Dawrin RICHMOND MD Location:[facility] Appointment Type:URO Office Visit [facility] Evaluation + Plan note Future Appointments Appointment Date:02/28/2024 01:40:00 PM Scheduled Provider:Obey ALAS [facility]: Procedure 30 [facility] General Surgery [place] Evaluation + Plan note Future Appointments Appointment Date:03/06/2024 02:40:00 PM Scheduled Provider:Obey ALAS MD [facility] App[facility] Type: Established 15 General Surgery [place] Evaluation + Plan note Future Appointments Appointment Date:10/23/2024 08:00:00 AM Scheduled Provider:Obey ALAS MD Location:[facility] Appointment Type: Established 15 [facility] General Surgery [place] Evaluation note Diagnosis Hx of total knee arthroplasty, left- Primary [facility] Diagnosis Bilateral thumb pain- Primary Left knee pain, unspecified chronicity [facility] Diagnosis Bilateral thumb pain [facility] Diagnosis Bilateral thumb pain [facility] Diagnosis Bilateral thumb pain- Primary Primary osteoarthritis of first carpometacarpal joint of left hand Primary localized osteoarthrosis, hand [facility] Diagnosis Bilateral thumb pain- Primary [facility] Diagnosis History of revision of total replacement of left knee joint- Primary [facility] Diagnosis Hx of total knee arthroplasty, left- Primary [facility] No data available for [facility] No data available for this section [facility] No data available for this section [facility] Summary Purpose Family History No Family [...] FoundDocuments on File Type Date Recorded 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 Advance Directives/Living Will 10/28/2020 9:12 AM LIVING WILL, POA Latest Code Status on File Code Status Date Activated Date Inactivated Comments Full Code 10/28/2020 3:43 PM Documents on File Type Date Recorded 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 Advance Directives/Living Will 10/28/2020 9:12 [...] BONE SCAN WHOLE BODY Barak Hebert MD [address] [place] [address] [facility] [address] [place], [place] [phone] Status Reason Specialty Diagnoses / Procedures Referred By Contact Referred To Contact Auth Not Needed Nuclear Medicine Diagnoses Pain in prosthetic joint, initial encounter Procedures NUC WBC STUDY MT ABSCESS IMAGING, WHOLE BODY Barak Hebert MD [address] [place], [place] [id number] [facility] [address] [place], [place] [phone] Status Reason Specialty Diagnoses / Procedures Referred By Contact Referred To Contact Auth Not Needed Nuclear Medicine Diagnoses Pain in prosthetic joint, initial encounter Procedures NUC BONE MARROW LIMITED AREA MT BONE MARROW IMAGING, LTD Barak Hebert MD [address] [place], [place] [id number] [facility] [address] [place] [phone] Status Reason Specialty Diagnoses / Procedures Referred By Contact Referred To Contact Pending Review Diagnoses Left knee pain, unspecified chronicity Procedures XR BONE LENGTH STUDY Barak Hebert MD [address] [place], [place] [id number] Status Reason Specialty Diagnoses / Procedures Referred By Contact Referred To Contact Pending Review Diagnoses Left knee pain, unspecified chronicity Procedures XR KNEE LEFT 3 VIEWS Barak Hebert MD [address] [place], [place] [id number] Status Reason Specialty Diagnoses / Procedures Referred By Contact Referred To Contact Closed Nuclear Medicine Diagnoses Pain in prosthetic joint, subsequent encounter Procedures NUC 3 PHASE LIMITED BONE SCAN MT BONE IMAGING, 3 PHASE Bhavana Addisno, GLORIA-TRADE SHOW SPECIALIST [address] [place], [place] [id number] [facility] [address] [place] [phone] Status Reason Specialty Diagnoses / Procedures Referred By Contact Referred To Contact New Request Diagnoses Hx of total knee arthroplasty, left Procedures XR KNEE LEFT 3 VIEWS Kaila Richmond PA-C [address] [place], [place] [id number] Status Reason Specialty Diagnoses / Procedures Referred By Contact Referred To Contact Closed Nuclear Medicine Diagnoses Pain in prosthetic joint, initial encounter Procedures NUC BONE MARROW LIMITED AREA MT BONE MARROW IMAGING, LTD Barak Hebert MD [address] [place], [place] [phone] [facility] [address] [place] [phone] Specialty Diagnoses / Procedures Referred By Contac t Referred To Contact Diagnoses Hx of total knee arthroplasty, left Procedures XR KNEE LEFT 3 VIEWS Bhavana Addison, UPPER MARKER-TRADE SHOW SPECIALIST [address] [place] [id number] Referral ID Status Reason Start Date Expiration Date V isits Requested Visits Authorized [id number] New Request 10/22/2021 11/16/2022 1 1 Specialty Diagnoses / Procedures Referred By Contac t Referred To Contact Physical Therapy Diagnoses Left knee pain, unspecified chronicity Barak Hebert MD [address] [place] [phone] Referral ID Status Reason Start Date Expiration Date V isits Requested Visits Authorized [id number] New Request 12/17/2021 01/11/2023 1 1 Scheduling Instructions . Specialty Diagnoses / Procedures Referred By Contac t Referred To Contact Orthopaedic Surgery Diagnoses Bilateral thumb pain Barak Hebert MD [address] [place] [phone] Gadiel Floyd MD [address] [place] [phone] Referral ID Status Reason Start Date Expiration Date V isits Requested Visits Authorized [id number] New Request 12/17/2021 01/11/2023 1 1 Specialty Diagnoses / Procedures Referred By Contac t Referred To Contact Diagnoses Bilateral thumb pain Procedures XR THUMB LEFT Gadiel Floyd MD [address] [place] [phone] Referral ID Status Reason Start Date Expiration Date V isits Requested Visits Authorized [id number] New Request 02/11/2022 03/08/2023 1 1 Specialty Diagnoses / Procedures Referred By Contac t Referred To Contact Diagnoses History of revision of total replacement of left knee joint Procedures XR KNEE LEFT 3 VIEWS Barak Hebert MD [address] [place] [phone] Referral ID Status Reason Start Date Expiration Date V isits Requested Visits Authorized [id number] New Request 06/15/2022 07/10/2023 1 1 Referral ID Status Reason Start Date Expiration Date V isits Requested Visits Authorized [id number] New Request 11/22/2023 12/16/2024 1 1 History [...] nasal MRSA screening, scheduling an appointment for [facility] [place] and the potential surgical date, and reviewing [...] file Gets together: Not on file Attends hindu service: Not on file Active member of [...] 09/11/2020 2:10 PM Patient: López Cortés MR#: [id number] : 1950 Age: 70 y.o. Referring Physician: [...] [x]cane, []bracing Are you followed by a dressmaker garment fitter? [] [x] Name: Are you followed by [...] Transfer Skill: Sit To Stand, Rehab Eval [place] (Sit-Stand Transfers) other (see comments) (SBA) Physical Assist/Nonphysical Assist: Sit/Stand 1 person assist Weight-Bearing Restrictions: Sit/Stand weight-bearing as tolerated Assistive Device For Transfer: Sit/Stand 2 wheeled walker Gait Skills, PT Eval Level of [place]: Gait stand-by assist Physical Assist/Nonphysical Assist: Gait 1 person assist Weight-Bearing Restrictions: Gait weight-bearing as tolerated Assistive Device For Transfer: Gait 2 wheeled walker Gait Distance (300ft) Gait Analysis, PT Eval Gait Pattern Used swing-through gait Gait Deviations Identified (Gait) decreased heel strike;other (see comments) (toe out ) Impairments Contributing To Gait Deviations pain;decreased ROM Stair Negotiation Level of [place]: Stair Negotiation stand-by assist Physical Assist/Nonphysical Assist: [...] EST 10/29/20 0824 Time In/Out Time In 823 Time Out [...] Transfer Skill: Sit To Stand, Rehab Eval [place] (Sit-Stand Transfers) other (see comments) (SBA) Physical Assist/Nonphysical Assist: Sit/Stand 1 person assist Weight-Bearing Restrictions: Sit/Stand weight-bearing as tolerated Assistive Device For Transfer: Sit/Stand 2 wheeled walker Gait Skills, PT Eval Level of [place]: Gait stand-by assist Physical Assist/Nonphysical Assist: Gait 1 person assist Weight-Bearing Restrictions: Gait weight-bearing as tolerated Assistive Device For Transfer: Gait 2 wheeled walker Gait Distance other (see comments) (125ft) Gait Analysis, PT Eval Gait Pattern Used swing-through gait Gait Deviations Identified (Gait) decreased heel strike;other (see comments) (toe out) Impairments Contributing To Gait Deviations pain;decreased ROM Stair Negotiation Level of [place]: Stair Negotiation contact guard Physical Assist/Nonphysical Assist: [...] ROM and all mobility tasks. * Kimberly Silva OT - 10/29/2020 12:06 PM EST 10/29/20 [...] upon exit Therapist Information License # [id number] * Esperanza Avila MD - 10/28/2020 6:47 PM EST INPATIENT REHAB / SWINGBED PROGRESS NOTE Admit Date: 10/28/2020 Date of Evaluation: 10/28/20206:47 PM [facility] Rehab / Skilled bed LOS: 0 [...] nasal cannula (10/28 1612) Flow (L/min): 2 (12/08 1612) Intake and Output: Intake/Output Summary (Last [...] Supine to Sit, Rehab Eval Level of [place]: Supine/Sit stand-by assist Physical Assist/Nonphysical Assist: Supine/Sit 1 person assist Transfer Skill: Sit to Stand, Rehab Eval Level of [place]: Sit/Stand contact guard Physical Assist/Nonphysical Assist: Sit/Stand 1 person assist Weight-Bearing Restrictions: Sit/Stand weight-bearing as tolerated Assistive Device for Transfer: Sit/Stand wheeled walker Upper Body Dressing Level of [place] independent Physical Assist/Nonphysical Assist set-up required Lower Body Dressing Level of [place] moderate assist (50% patients effort) Physical Assist/Nonphysical Assist 1 person assist (including ZACKARY hose ) Toileting Level of [place] contact guard Physical Assist/Nonphysical Assist 1 person assist Grooming [place] Level (Grooming) supervision;wash face, hands General Therapy [...] hygiene training Therapist Information License # [id number] 1. Pt will complete LB dressing MOD [...] Supine to Sit, Rehab Eval Level of [place]: Supine/Sit stand-by assist Physical Assist/Nonphysical Assist: Supine/Sit 1 person assist Transfer Skill: Sit To Stand, Rehab Eval [place] (Sit-Stand Transfers) contact guard Physical Assist/Nonphysical Assist: Sit/Stand 1 person assist Weight-Bearing Restrictions: Sit/Stand weight-bearing as tolerated Assistive Device For Transfer: Sit/Stand 2 wheeled walker Gait Skills, PT Eval Level of [place]: Gait contact guard Physical Assist/Nonphysical Assist: Gait 1 person assist Weight-Bearing Restrictions: Gait weight-bearing as tolerated Assistive Device For Transfer: Gait 2 wheeled walker Gait Distance 75 feet Gait Analysis, PT Eval Gait Pattern Used swing-through gait Gait Deviations Identified (Gait) decreased gait speed;decreased heel strike;decreased step length Impairments Contributing To Gait Deviations decreased ROM;decreased strength Stair Negotiation Level of [place]: Stair Negotiation (not assessed at this time) [...] 11/19/2020 11:07 AM Patient: López Cortés MR#: [id number] : 1950 Age: 70 y.o. Referring Physician: [...] Laterality: Left; Surgeon: Barak Hebert MD; Location: [facility] OR KNEE SURGERY Left 05/07/2020 ---left [...] Date: 10/29/2020 Discharge Time: 10/29/2020 Discharge Unit: [facility] Rehab unit Unit Length of Stay: LOS: [...] as: ULTRAM Follow-up: Tess Fuentes MD [address] [facility] [address] In 1 week SANJUANITA louise 1 week Barak Hebert MD [address] [facility] [address] Call in 3 days Upcoming Appointments (up to five)-Some appointments for Medical Center outpatient clinics or diagnostic testing locations are not displayed below Provider Department Dept Phone 11/19/2020 11:00 AM Kaila Richmond [facility] Orthopedics [phone] Total coordination of discharge care taking greater that 30 minutes documented in this encounter Discharge Instructions * Discharge Instr - Activity* Esperanza Avila MD - 10/29/2020 8:19 AM EST As tolerated * Discharge Instr - Diet* Esperanza Avila MD - 10/29/2020 8:20 AM EST As tolerated * Discharge Instr - Notify* [place] RN - 10/29/2020 10:08 AM EST Contact Office ([phone]) if: > Total Knee ROM < 90 [...] Hour Product Support Hotline at Contact Office ([phone]) if: > Total Knee ROM < 90 [...] Don office is closed, you may call [phone] where you will be connected with an after hours orthopedic nurse that will be able to answer your questions. The morning after your discharge Dr. Don office will contact you to follow up with how your recovery is progressing at home. * Attachments The following attachments cannot be sent through Care Everywhere. * meloxicam (oral/injection) (Kenyan) * oxycodone (Kenyan) * acetaminophen (oral) (Kenyan) * docusate and senna (Kenyan) * multivitamins (Kenyan) * omeprazole (Kenyan) * doxycycline (oral/injection) (Kenyan) documented in this encounter Additional Source Comments (unrecognized sect ion and content) No Status Records FoundNo Status Records FoundNo Status Records FoundNo Status Records FoundNo Status Records FoundNo Status Records FoundNo Status Records Found INFORMATION SOURCE (unrecogn ized section and content) DATE CREATED AUTHOR 05/16/2018 [facility] DATE CREATED AUTHOR AUTHOR'S ORGANIZ ATION 05/16/2018 [facility] DATE CREATED AUTHOR AUTHOR'S ORGANIZ ATION 02/27/2019 [facility] DATE CREATED AUTHOR AUTHOR'S ORGANIZ ATION 10/30/2022 [facility] DATE CREATED AUTHOR AUTHOR'S ORGANIZ ATION 02/02/2023 [facility] DATE CREATED AUTHOR AUTHOR'S ORGANIZ ATION 06/09/2024 [facility] EPIC DATE CREATED AUTHOR AUTHOR'S ORGANIZ ATION 09/20/2024 [facility] Reason for Visit (unrecogniz ed section and content) Status Reason Specialty Diagnoses / Procedures Referred By Contact Referred To Contact Pending Review Diagnoses Left knee pain, unspecified chronicity Procedures XR BONE LENGTH STUDY Barak Hebert MD [address] [place] [address] Reason Comments Knee Pain Pain New Patient Status Reason Specialty Diagnoses / Procedures Referred By Contact Referred To Contact Closed Nuclear Medicine Diagnoses Pain in prosthetic joint, subsequent encounter Procedures NUC 3 PHASE LIMITED BONE SCAN MT BONE IMAGING, 3 PHASE Bhavana Addison, UPPER MARKER-TRADE SHOW SPECIALIST [address] [place], [place] [id number] [facility] [address] [place] [phone] Status Reason Specialty Diagnoses / Procedures Referred By Contact Referred To Contact Closed Nuclear Medicine Diagnoses Pain in prosthetic joint, initial encounter Procedures NUC WBC STUDY MT ABSCESS IMAGING, WHOLE BODY Barak Hebert MD [address] [place], [place] [id number] [facility] Nuclear Medicine [address] [place] [phone] Status Reason Specialty Diagnoses / Procedures Referre d By Contact Referred To Contact Diagnoses Mechanical loosening of internal left knee prosthetic joint, 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, 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] Procedures MT REVISE KNEE JOINT REPLACE,ALL PARTS REVISION ARTHROPLASTY KNEE Barak Hebert MD [address] [place] [address] Reason Comments Post Op Visit Status Reason Specialty Diagnoses / Procedures Referred By Contact Referred To Contact New Request Diagnoses Hx of total knee arthroplasty, left Procedures XR KNEE LEFT 3 VIEWS Kaila Richmond PA-C [address] [place] [address] Status Reason Specialty Diagnoses / Procedures Referred By Contact Referred To Contact Closed Nuclear Medicine Diagnoses Pain in prosthetic joint, initial encounter Procedures NUC BONE MARROW LIMITED AREA MT BONE MARROW IMAGING, LTD Barak Hebert MD [address] [place] [address] [facility] [address] [place], [place] [phone] Status Reason Specialty Diagnoses / Procedures Referred By Contact Referred To Contact Auth Not Needed Nuclear Medicine Diagnoses Pain in prosthetic joint, initial encounter Procedures NUC WBC STUDY MT ABSCESS IMAGING, WHOLE BODY Barak Hebert MD [address] [place] [address] [facility] Medicine [address] [place], [place] [phone] Status Reason Specialty Diagnoses / Procedures Referred By Contact Referred To Contact New Request Diagnoses S/P total knee arthroplasty, left Procedures XR BONE LENGTH STUDY Barak Hebert MD [address] [place] [address] Specialty Diagnoses / Procedures Referred By Contac t Referred To Contact Diagnoses Hx of total knee arthroplasty, left Procedures XR KNEE LEFT 3 VIEWS Bhavana Addison, UPPER MARKER-TRADE SHOW SPECIALIST [address] [place], [place] [phone] Referral ID Status Reason Start Date Expiration Date V isits Requested Visits Authorized [id number] New Request 10/22/2021 11/16/2022 1 1 Reason Comments Follow-up Reason Comments Pain Condition Update Specialty Diagnoses / Procedures Referred By Contac t Referred To Contact Diagnoses Bilateral thumb pain Procedures XR THUMB LEFT Gadiel Floyd MD [address] [place] [address] Referral ID Status Reason Start Date Expiration Date V isits Requested Visits Authorized [id number] New Request 02/11/2022 03/08/2023 1 1 Reason Comments Pain Specialty Diagnoses / Procedures Referred By Contac t Referred To Contact Orthopaedic Surgery Diagnoses Bilateral thumb pain Barak Hebert MD [address] [place] [address] Gadiel Floyd MD [address] [place] [id number] Referral ID Status Reason Start Date Expiration Date V isits Requested Visits Authorized [id number] New Request 12/17/2021 01/11/2023 1 1 Reason Comments Follow-up Follow Up- Bilat Bas al Joint Arthritis/ Last Injection: 02/17/22- Pain Scale: 2/10 Bilat Referral ID Status Reason Start Date Expiration Date V isits Requested Visits Authorized [id number] New Request 11/22/2023 12/16/2024 1 1 Amaris Samayoa RN - 10/28/2020 2:35 PM ESTWhAmaris tubbs RN - 10/28/2020 12:50 PM EST Nursing Notes (unrecognized section and content) Patient ransferred to PACU via bed with this nurse and LAW ENFORCEMENT DIRECTOR. Bedside report given to ROBINSON Law. Fire risk level of 2 determined [...] determined in the discharge planning process with family welfare social work professor and the multidisciplinary team. Return to [place] from PT. C/o pain 4 out of 10. Pain pill offered but Tylenol due. PT to take tylenol and save oxicodone for after lunch. Follow up phone call to [facility], who state that they can accept to start services tomorrow. Follow up call received from Suzy at [facility]. Referral for [facility] therapistSanta to be made through [facility]. Instructed to request Santa for PT on referral. Referral sent at this time. To PT room Spoke with Suzy at [facility] regarding referral. Referring patient information, will [...] PROCEDURE: 10/28/2020 ATTENDING PHYSICIAN: Barak Hebert M.D. BEAN SORTER: Bhavana Addison CNP. PREOPERATIVE DIAGNOSIS: Failed left [...] on the back table according to the content analyst s technique. They were then cemented [...] procedure) without the assistance of a skilled human resources assistant manager. A human resources assistant manager was medically necessary for positioning, retraction and [...] bay 310. POST OPERATIVE/PROCEDURE NOTE López Cortés ([id number]) SURGEON Surgeon(s) and Role: * Barak Hebert MD - Primary BEAN SORTER Bhavana Addison APRN-TRADE SHOW SPECIALIST ANESTHESIOLOGIST LAW ENFORCEMENT DIRECTOR: Yusef Escobedo CRNA SURGICAL STAFF Credit Analysis Manager: Kerry Richter RN Nurse Practitioner: MARK Richardson Scrub Person: Andrew Moffett RN; Alyx Miller; Martha Rolon RN Preschool Assistant Gis Analyst: Escobar Rodriguez Poultry Farmer Meat: Efrem Bonner LPN PROCEDURE PERFORMED Procedure(s) (LRB): [...] to return home with his spouse and [facility] after discharge for a left knee revision. He states that lives in [place] and would like to utilize [facility] in that area. He states that he has a wheeled walker and will bring it with him on the day of surgery. CM to continue to follow and assist with discharge plans. 10/02/20927 Information Source Information Source patient Contact Information Sourcing Coordinator Name Sun Lopez RN Case Manager's Living [...] Care Teams (unrecognized sec tion and content) Asset Protection Officer Relationship Specialty Start Date End Date Tess Fuetnes MD [address] [phone] PCP - General Family Medicine 09/11/20 Asset Protection Officer Relationship Specialty Start Date End Date Tess Fuentes MD [address] [place] [address] PCP - General Family Medicine 09/11/20 Asset Protection Officer Relationship Specialty Start Date End Date Tess Fuentes MD [address] [place] [address] PCP - General Family Medicine 09/11/20 Asset Protection Officer Relationship Specialty Start Date End Date Tess Fuentes MD [address] [facility] [place] [address] [place] [address] PCP - General Family Medicine 09/11/20 Asset Protection Officer Relationship Specialty Start Date End Date Tess Fuentes MD [address] [facility] [place] [address] [place] [address] PCP - General Family Medicine 09/11/20 Asset Protection Officer Relationship Specialty Start Date End Date Tess Fuentes MD [address] [facility] [place] [address] [place] [address] PCP - General Family Medicine 09/11/20 Asset Protection Officer Relationship Specialty Start Date End Date Tess Fuentes MD [address] [facility] [place] [address] PCP - General Family Medicine 09/11/20 Asset Protection Officer Relationship Specialty Start Date End Date Tess Fuentes MD [address] [facility] [place] [address] [place] [address] PCP - General Family Medicine 09/11/20 Asset Protection Officer Relationship Specialty Start Date End Date Tess Fuentes MD [address] [facility] [place] [address] PCP - General Family Medicine 09/11/20 Asset Protection Officer Relationship Specialty Start Date End Date Tess Fuentes MD [address] [facility] [place] [address] PCP - General Family Medicine 09/11/20 FOR [...] BE BASED ON THE PRIMARY CLINICAL RECORDS. [facility]. provides no warranty or guarantee of the accuracy or completeness of information in this document.
[2024-09-23] MEDS: ADACEL DIPH,PERTUSS(ACELL),TET VAC/PF 0.5 ML ADULT SYRINGE IM (12:02)
--- NOTE | 2024-09-23 15:45 | ED_ITS ---
HPI - Anxiety General Stated Complaint: LACERATION Time Seen by Provider: 09/23/24 11:41 Mode of arrival: walk-in History of Present Illness HPI narrative: The patient is coming with a laceration to the left forearm he stabbed himself while he was cutting a deer The patient denies any other complaint he does not remember the last time he had a tetanus booster Related Data Home Medications ?Medication ?Instructions ?Recorded ?Confirmed irbesartan 300 mg tablet See Rx Instructions .Route .COMPLEX 02/03/24 08/29/24 pantoprazole 40 mg tablet,delayed 40 mg PO DAILY 02/03/24 08/29/24 release pravastatin 40 mg tablet 40 mg PO DAILY 02/03/24 08/29/24 tamsulosin 0.4 mg capsule 0.4 mg PO DAILY 02/03/24 08/29/24 temazepam 15 mg capsule 15 mg PO .at bedtime PRN insomnia 02/03/24 08/29/24 Previous Rx's ?Medication ?Instructions ?Recorded cephalexin 500 mg capsule 500 mg PO Q8H #9 caps 09/23/24 Allergies Allergy/AdvReac Type Severity Reaction Status Date / Time Sulfa (Sulfonamide Allergy Unknown Unknown Verified 08/29/24 09:31 Antibiotics) Review of Systems ROS Status of ROS 10 or more systems reviewed and unremark able except as noted in history and below [facility] Medical History (Updated 09/23/24 @ 12:02 by Peggy Luque MD) Trigger finger ?M65.30 - Trigger finger, unspecified finger (ICD-10) History of meniscal tear ?Z87.828 - Personal history of other (healed) physical injury and trauma (ICD-10) Subconjunctival hemorrhage ?H11.30 - Conjunctival hemorrhage, unspecified eye (ICD-10) Skin foreign body ?T14.8XXA - Other injury of unspecified body region, initial encounter (ICD- 10) Lower back pain ?M54.50 - Low back pain, unspecified (ICD-10) 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 ?Z18.33 - Retained wood fragments (ICD-10) Cellulitis ?L03.90 - Cellulitis, unspecified (ICD-10) SCC (squamous cell carcinoma), hand ?C44.621 - Squamous cell carcinoma of skin of unspecified upper limb, including shoulder (ICD-10) Renal hematoma ?S37.019A - Minor contusion of unspecified kidney, initial encounter (ICD-10) Peripheral neuropathy ?G62.9 - Polyneuropathy, unspecified (ICD-10) Osteoarthritis ?M19.90 - Unspecified osteoarthritis, unspecified site (ICD-10) Nocturia ?R35.1 - Nocturia (ICD-10) Migraines ?G43.909 - Migraine, unspecified, not intractable, without status migrainosus (ICD-10) Insomnia ?G47.00 - Insomnia, unspecified (ICD-10) Hypertension ?I10 - Essential (primary) hypertension (ICD-10) Hypercholesteremia ?E78.00 - Pure hypercholesterolemia, unspecified (ICD-10) Glaucoma ?H40.9 - Unspecified glaucoma (ICD-10) GERD (gastroesophageal reflux disease) ?K21.9 - Gastro-esophageal reflux disease without esophagitis (ICD-10) Erectile dysfunction ?N52.9 - Male erectile dysfunction, unspecified (ICD-10) COPD (chronic obstructive pulmonary disease) ?J44.9 - Chronic obstructive pulmonary disease, unspecified (ICD-10) Chronic kidney disease ?N18.9 - Chronic kidney disease, unspecified (ICD-10) BPH (benign prostatic hyperplasia) ?N40.0 - Benign prostatic hyperplasia without lower urinary tract symptoms (ICD-10) Basal cell carcinoma ?C44.91 - Basal cell carcinoma of skin, unspecified (ICD-10) Barretts esophagus ?K22.70 - Terrazas's esophagus without dysplasia (ICD-10) Atrophic testicle ?N50.0 - Atrophy of testis (ICD-10) Arthritis ?M19.90 - Unspecified osteoarthritis, unspecified site (ICD-10) Surgical History History of revision of total knee arthroplasty ?Z96.659 - Presence of unspecified artificial knee joint (ICD-10) Hx of hemorrhoidectomy ?Z98.890 - Other specified postprocedural states (ICD-10) History of cholecystectomy ?Z90.49 - Acquired absence of other specified parts of digestive tract (ICD- 10) H/O repair of rotator cuff ?Z98.890 - Other specified postprocedural states (ICD-10) H/O arthroscopy of shoulder ?Z98.890 - Other specified postprocedural states (ICD-10) History of arthroplasty of knee ?Z96.659 - Presence of unspecified artificial knee joint (ICD-10) History of colonoscopy ?Z98.890 - Other specified postprocedural states (ICD-10) Family History (Updated 08/29/24 @ 09:32 by Jenna Austin RN) Other Alzheimer's dementia Family history of cancer Family history of hypertension Family history of stroke Social History Within the past year, how often did you have a drink containing alcohol: monthly or less Within the past year, how many standard drinks containing alcohol did you have on a typical day: 1 or 2 Within the past year, how often did you have six or more drinks on one occasion: never Total score: 0 Score interpretation: A score less than 4 is consistent with normal alcohol consumption. Smoking status: Former smoker Second hand tobacco smoke exposure: No Non-prescribed substance use: denies use Previous occupational history: Retired- [employer] Highest level of school completed/degree received: some college, no degree Little interest or pleasure in doing things: not at all Feeling down, depressed, or hopeless: not at all Exam Narrative Exam Narrative: Nurses notes and vital signs reviewed and patient is not hypoxic. Left forearm exam: Almost 1 cm linear stab wound at the medial aspect of the left forearm the patient have no vascular injury detected to have a good radial pulse and no bleeding that is detected but the bleeding is controlled no foreign body seen no exposure of any tendon and the patient have full range of movement in his hand as well as elbow General: Well-appearing and in no apparent distress. Skin: Warm, dry, no pallor noted. No rash. Head: Normocephalic, atraumatic. Neck: Supple, non-tender. Eye: Pupils are equal, round and EOMI. No scleral icterus. Ears, Nose, Mouth, and Throat: TM are clear, no nasal mucosal hypertrophy. Oral mucosa is moist, no posterior oropharynx erythema, uvula is mid-line Cardiovascular: Regular Rate and Rhythm without murmur, gallop or rub. Respiratory: No accessory muscle use or respiratory distress. Lungs are clear to auscultation, no wheezing, rales or rhonchi Chest Wall: no tenderness Back: No midline thoracic or lumbar vertebral tenderness. No CVA tenderness Musculoskeletal: normal ROM, no calf or popliteal tenderness, no lower extremity edema/swelling GI: Abdomen is soft, non-distended. Normal bowel sounds. No masses appreciated. No tenderness to palpation. No rebound, guarding, or rigidity noted. Neurological: A&O x4. No cranial nerve dysfunction observed. No truncal ataxia. Moves all extremities. Sensation intact. Psychiatric: Cooperative and interactive. Normal mood and affect. Constitutional Vital Signs, click to edit/add: Last Vital Signs Temp 98.7 F 09/23/24 11:22 Pulse 60 09/23/24 11:22 Resp 18 09/23/24 11:22 BP 122/90 09/23/24 11:22 Pulse Ox 98 09/23/24 11:22 Course Vital Signs Vital signs: Vital Signs Temperature 98.7 F 09/23/24 11:22 Pulse Rate 60 09/23/24 11:22 Respiratory Rate 18 09/23/24 11:22 Blood Pressure 122/90 09/23/24 11:22 Pulse Oximetry 98 09/23/24 11:22 Temperature 98.7 F 09/23/24 11:22 Pulse Rate 60 09/23/24 11:22 Respiratory Rate 18 09/23/24 11:22 Blood Pressure 122/90 09/23/24 11:22 Pulse Oximetry 98 09/23/24 11:22 MDM - Anxiety MDM Narrative Medical decision making narrative: The patient was provided with a tetanus booster He also was provided with a Keflex as a prophylaxis due to the fact that this was a dirty knife The patient also had Dermabond applied to close the wound and he was instructed about wound care The patient is to follow up with primary care physician in next 2-3 days or to return to the emergency department should any of the signs or symptoms worsen or new symptoms develop. The patient agrees with the following Diagnosis and Treatment plan and the patient will be discharged home. Discharge Plan Discharge Clinical Impression: Stab wound Patient Disposition: Home, Self-Care Time of Disposition Decision: 12:02 Condition: Good Prescriptions / Home Meds: New cephalexin 500 mg capsule 500 mg PO Q8H Qty: 9 0RF No Action pravastatin 40 mg tablet 40 mg PO DAILY tamsulosin 0.4 mg capsule 0.4 mg PO DAILY pantoprazole 40 mg tablet,delayed release (DR/EC) 40 mg PO DAILY irbesartan 300 mg tablet See Rx Instructions .ROUTE .COMPLEX Rx Instructions: 150mg daily; temazepam 15 mg capsule 15 mg PO .at bedtime PRN (Reason: insomnia) Print Language: Hungarian Instructions: Skin Adhesive Care (ED) Referrals: Efe Morris MD [Primary Care Provider] - 1 week Discharge Date/Time: 09/23/24 12:12
== END 2024-09-23 12:12 | disposition home or self-care (01) ==
PROVIDERS: Emergency Provider Emergency Medicine; PCP Family Medicine
DX: S51.812A Laceration without foreign body of left forearm, initial encounter (principal); W26.0XXA Contact with knife, initial encounter; Z23 Encounter for immunization
CPT/HCPCS: 12001; 90471; 90715; 99283

== ENCOUNTER 2025-04-17 06:57 | Outpatient (OUT) | payer MEDICARE, SELFPAY ==
--- OUTSIDE RECORDS SUMMARY | 2025-04-17 07:09 | XMS_ITS | CCD ---
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 Automated blood monocyte count 0.0-0.8 [facility] Monocytes/100 WBC Auto (Bld) Ordered By: Adrien Foley on 03-26-2025 Monocytes/100 WBC (Bld) Automated monocyte % . [facility] Neutrophils Auto (Bld) [#/Vo l]Ordered By: Adrien Foley on 03-26-2025 Neutrophils (Bld) [#/Vol] Neutrophils [#/volume] in Blood by Automated count 1.8-7.7 [facility] Neutrophils/100 WBC Auto (Bl d)Ordered By: Adrien Foley on 03-26-2025 Neutrophils/100 WBC (Bld) Automated neutrophil % . [facility] No Panel InformationOrdered By: Adrien Foley on 03-26-2025 Estimated GFR (CKD-EPI) 51.852 mL/Min [facility] Creatinine Clearance (Chem N/A [facility] Nucleated erythrocytes [Pres ence] in Blood by Automated countOrdered By: Adrien Foley on 03-26-2025 Nucleated RBC Auto Ql (Bld) Nucleated erythrocytes [Presence] in Blood by Automated count 0-0.5 [facility] Platelet mean volume Auto (B ld) [Entitic vol]Ordered By: Adrien Foley on 03-26-2025 Platelet mean volume (Bld) [Entitic vol] Platelet mean volume [Entitic volume] in Blood by Automated count 6.6-10.1 [facility] Platelets Auto (Bld) [#/Vol] Ordered By: Adrien Foley on 03-26-2025 Platelets (Bld) [#/Vol] Platelets [#/volume] in Blood by Automated count 150-450 [facility] Potassium [Moles/volume] in Serum or PlasmaOrdered By: Adrien Foley on 03-26-2025 Potassium [Moles/Vol] Potassium [Moles/v olume] in Serum or Plasma 3.5-5.1 [facility] RBC Auto (Bld) [#/Vol]Ordere d By: Adrien Foley on 03-26-2025 RBC (Bld) [#/Vol] Erythrocytes [#/volu me] in Blood by Automated count 3.90-5.60 [facility] Serum or plasma anion gap de terminationOrdered By: Adrien Foley on 03-26-2025 Anion gap [Moles/Vol] Serum or plasma an ion gap determination 6.0-15.0 [facility] Serum or plasma total choles terol/high density lipoprotein (HDL) cholesterol mass ratOrdered By: Adrien Foley on 03-26-2025 Cholesterol.total/Chol esterol in HDL [Mass ratio] Serum or plasma total cholesterol/high density lipoprotein (HDL) cholesterol mass rat <5.0 [facility] Sodium [Moles/volume] in Ser um or PlasmaOrdered By: Adrien Foley on 03-26-2025 Sodium [Moles/Vol] Sodium [Moles/volume ] in Serum or Plasma 136-145 [facility] Triglyceride [Mass/volume] i n Serum or PlasmaOrdered By: Adrien Foley on 03-26-2025 Triglyceride [Mass/Vol] Triglyceride [Mass/volume] in Serum or Plasma 0-149 [facility] Comment on above: TRIG ATP III CLASSIF ICATIONTRIG less than 150 mg/dL NormalTRIG 150-199 mg/dL Borderline highTRIG 200-500 mg/dL High TRIG greater than 500 mg/dL Very highStandard traceable to the Center for Disease Conrtrol and Prevention (CDC) test method. Urea nitrogen [Mass/volume] in Serum or PlasmaOrdered By: Adrien Foley on 03-26-2025 Urea nitrogen [Mass/Vol] Urea nitrogen [Mass/volume] in Serum or Plasma 7-25 [facility] WBC Auto (Bld) [#/Vol]Ordere d By: Adrien Foley on 03-26-2025 WBC (Bld) [#/Vol] Leukocytes [#/volume ] in Blood by Automated count 4.1-10.5 [facility] Ambulatory Visit Summaryon 1 12-24-2023 Ambulatory Visit Summary Ambulatory Visit Summary LÓPEZ CORTÉS :1950 Visit Date:10/23/2024 Ambulatory Visit Instructions Your Diagnosis Basal cell carcinoma of ear Your Care Team Attending Physician - EVETTE [...] for choosing us for your care. Normal [facility] General Surgery Office/Clini c Noteon 10-23-2024 General Surgery Office/Clinic Note General Surgery Office/Clinic Note Chief Complaint foloow up basal cell carcinoma HPI Staff 8 week post operative follow up post excision basal cell carcinoma left ear. Denies recurrence of lesion. Denies pain or discomfort. History of Present Illness 2 months s/p excision basal cell carcinoma left pinna; doing well, no pain or nodules, no ulceration or bleeding. Review of Systems PHQ Score Initial Depression [...] are negative or noncontributory. Physical Exam skin: left ear with well-healed scar; no nodularity or ulcerations, no scabs. Assessment/Plan 1. Basal cell carcinoma of ear (C44.211: Basal cell carcinoma of skin of unspecified ear and external auricular canal) no evidence of recurrence; patient to f/u if recurrent nodules, scab, bleeding or ulceration; call with problems/questions. Follow-up No qualifying data [...] Former smoker, quit more than 30 days ago, 35 years ago Tobacco Use:., 10/23/2024 Family History CVA: Mother. Immunizations Vaccine Date Status influenza virus vaccine, inactivated 08/2023 Recorded SARS-CoV-2 (COVID-19) mRNAMUL.ORD![id number] 09/24/2022 Recorded influenza virus vaccine, inactivated 08/31/2022 Recorded SARSCoV2 mRNA(ogcxprkfo-gxzb-elkbln) vac 03/29/2022 Recorded SARS-CoV-2 (COVID-19) Ad26 vaccine [...] virus vaccine, inactivated 09/09/2016 Recorded Normal [facility] Comment on above: Result Comment: Elec tronically Signed By: EVETTE RILEY, Obey Varela\Date and Time Signed: 10/23/24 08:13 EST Ambulatory Visit Summaryon 1 Ambulatory Visit Summary [...] EST With: EVETTE RILEY, Obey Castañeda Where: [facility] Surgery [address] Medications What How Much When Instructions Unchanged [...] choosing us for your care. Esteb[facility] General Surgery Office/Clini c Noteon 09-18-2024 General [...] virus vaccine, inactivated 08/2023 Recorded SARS-CoV-2 (COVID-19) mRNAMUL.ORD![id number] 09/24/2022 Recorded influenza virus vaccine, inactivated 08/31/2022 Recorded SARSCoV2 mRNA(vqnzcljsb-jfzi-alkosc) vac 03/29/2022 Recorded SARS-CoV-2 (COVID-19) Ad26 vaccine [...] virus vaccine, inactivated 09/09/2016 Recorded Normal [facility] Comment on above: Result Comment: Elec tronically Signed By: EVETTE RILEY, Obey Castañeda\.br\Date and Time Signed: 09/18/24 20:07 EDT Pathology Request for Lab Co rpon 08-29-2024 Pathology Request for Lab Zaira Normal [facility] Comment on above: Order Comment: PATHO LOGY SKIN SPECIMEN Result Comment: See report. Scanned copy available in EMR. PERFORMED BY: [place] [address] PATHOLOGIST ELEVATOR ERECTOR KIMBERLEE MATHIAS M.D. Performed By: #### P ATH TO [facility] #### [address] Ambulatory Visit Summaryon 0 08-14-2024 Ambulatory Visit [...] for choosing us for your care. Normal [facility] General Surgery Office/Clini c Noteon 08-14-2024 General [...] plan wide excision under local anesthesia at [facility], informed consent obtained. Follow-up No qualifying [...] virus vaccine, inactivated 08/2023 Recorded SARS-CoV-2 (COVID-19) mRNAMUL.ORD![id number] 09/24/2022 Recorded influenza virus vaccine, inactivated 08/31/2022 Recorded SARSCoV2 mRNA(ejzxhclly-oqny-zmalaq) vac 03/29/2022 Recorded SARS-CoV-2 (COVID-19) Ad26 vaccine 09/2021 Recorded SARS-CoV-2 (COVID-19) mRNA-1273 vaccine 09/13/2021 Recorded SARS-CoV-2 (COVID-19) Ad26 vaccine 02/2021 Recorded SARS-CoV-2 (COVID-19) mRNA-1273 vaccine 02/04/2021 Recorded SARS-CoV-2 (COVID-19) Ad26 vaccine 01/2021 Recorded SARS-CoV-2 (COVID-19) mRNA-1273 vaccine 01/07/2021 Recorded influenza virus vaccine, inactivated 09/03/2020 Recorded influenza virus vaccine, inactivated (more content not included)... Normal [facility] Comment on above: Result Comment: Elec [...] virus vaccine, inactivated 08/2023 Recorded SARS-CoV-2 (COVID-19) mRNAMUL.ORD![id number] 09/24/2022 Recorded influenza virus vaccine, inactivated 08/31/2022 Recorded SARSCoV2 mRNA(fbnlznnlq-efab-ddpcaq) vac 03/29/2022 Recorded SARS-CoV-2 (COVID-19) Ad26 vaccine [...] virus vaccine, inactivated 09/09/2016 Recorded Normal [facility] Comment on above: Result Comment: Elec [...] you for choosing us for your care. [facility] Pathology Noteon 03-02-2024 Pathology Note [id number]#1.00TIFF [facility] Ambulatory Visit Summaryon 0 02-28-2024 Ambulatory [...] With: Obey ALAS MD Where: General Surgery Nill/Said Anthony Normal [facility] General Surgery Office/Clini c Noteon 02-28-2024 General [...] virus vaccine, inactivated 08/2023 Recorded SARS-CoV-2 (COVID-19) mRNAMUL.ORD![id number] 09/24/2022 Recorded influenza virus vaccine, inactivated 08/31/2022 Recorded SARSCoV2 mRNA(plpcnxtju-dqou-zlgzoe) vac 03/29/2022 Recorded SARS-CoV-2 (COVID-19) Ad26 vaccine [...] virus vaccine, inactivated 09/09/2016 Recorded Normal [facility] Comment on above: Result Comment: Elec [...] for choosing us for your care. Normal [facility] Physician Referralon 024 Physician Referral [id number]#1.00TIFF Normal [facility] Physician Referralon 024 Physician Referral [id number]#1.00TIFF Normal [facility] INSULINon 01-28-2023 Insulin 15.8 uIU/mL Normal 2.6-24.9 [facility] Comment on above: Performed By: #### I NSULIN #### [facility] [address] [address] [address] Braulio Fritz CBC AUTO DIFFon 01-27-2023 BASO # 0.0 103/ul Normal 0.0-0.1 [facility] Comment on above: Performed By: #### I NSULIN #### [facility] [address] [address] [address] Braulio Fritz Basophils/100 WBC (Bld) 0.5 % Normal 0.2-2.0 [facility] Comment on above: Performed By: #### I NSULIN #### [facility] [address] [address] [address] Braulio Fritz EO # 0.3 103/ul Normal 0.0-0.7 [facility] Comment on above: Performed By: #### I NSULIN #### [facility] [address] [place] [address] Dr. Braulio Fritz Eosinophils/100 WBC (Bld) 3.2 % Normal 0.9-7.0 [facility] Comment on above: Performed By: #### I NSULIN #### [facility] [address] [place] [address] Dr. Braulio Fritz Erythrocyte distribution width (RBC) [Ratio] 14.8 % Normal 11.0-15.0 [facility] Comment on above: Performed By: #### I NSULIN #### [facility] [address] [place] [address] Dr. Braulio Fritz Hematocrit (Bld) [Volume fraction] 48.1 % Normal 42.0-54.0 [facility] Comment on above: Performed By: #### I NSULIN #### [facility] [address] [place] [address] Dr. Braulio Fritz Hemoglobin (Bld) [Mass/Vol] 16.1 g/dL Normal 14.0-18.0 [facility] Comment on above: Performed By: #### I NSULIN #### [facility] [address] [place] [address] Dr. Braulio Fritz IG # 0.05 10e3/ul Critically high 0.00-0.03 [facility] Comment on above: Performed By: #### I NSULIN #### [facility] [address] [place] [address] Dr. Braulio Fritz IG % 0.6 % Critically high 0.0-0.5 [facility] Comment on above: Performed By: #### I NSULIN #### [facility] [address] [place] [address] Dr. Braulio Fritz LYMPH # 2.2 103/ul Normal 1.2-3.8 [facility] Comment on above: Performed By: #### I NSULIN #### [facility] [address] [address] [address] Braulio Fritz Lymphocytes/100 WBC (Bld) 25.7 % Normal 20.5-60.0 [facility] Comment on above: Performed By: #### I NSULIN #### [facility] [address] [address] [address] Braulio Fritz MANUAL DIFF REQ NO Normal [facility] Comment on above: Performed By: #### I NSULIN #### [facility] [address] [place] [address] Dr. Braulio Fritz MCH (RBC) [Entitic mass] 31.7 pg Normal 25.9-34.0 [facility] Comment on above: Performed By: #### I NSULIN #### [facility] [address] [place] [address] Dr. Braulio Fritz MCHC (RBC) [Mass/Vol] 33.5 g/dL Normal 29.9-35.2 [facility] Comment on above: Performed By: #### I NSULIN #### [facility] [address] [place] [address] Dr. Braulio Fritz MCV (RBC) [Entitic vol] 94.7 fL Critically high 80.0-94.0 [facility] Comment on above: Performed By: #### I NSULIN #### [facility] [address] [place] [address] Dr. Braulio Fritz MONO # 0.9 103/ul Critically high 0.3-0.8 [facility] Comment on above: Performed By: #### I NSULIN #### [facility] [address] [place] [address] Dr. Braulio Fritz Monocytes/100 WBC (Bld) 10.5 % Normal 1.7-12.0 [facility] Comment on above: Performed By: #### I NSULIN #### [facility] [address] [place] [address] Dr. Braulio Fritz NEUT # 5.1 103/ul Normal 1.4-6.5 [facility] Comment on above: Performed By: #### I NSULIN #### [facility] [address] [address] [address] Braulio Fritz Neutrophils/100 WBC (Bld) 59.5 % Normal 43.0-75.0 [facility] Comment on above: Performed By: #### I NSULIN #### [facility] [address] [address] [address] Braulio Fritz Platelet mean volume (Bld) [Entitic vol] 10.5 fL Normal 9.5-13.5 [facility] Comment on above: Performed By: #### I NSULIN #### [facility] [address] [place] [address] Dr. Braulio Fritz PLT 187 103/ul Normal 150-450 [facility] Comment on above: Performed By: #### I NSULIN #### [facility] [address] [place] [address] Dr. Braulio Fritz RBC 5.08 106/ul Normal 4.70-6.10 [facility] Comment on above: Performed By: #### I NSULIN #### [facility] [address] [place] [address] Dr. Braulio Fritz WBC 8.5 103/ul Normal 4.0-11.0 [facility] Comment on above: Performed By: #### I NSULIN #### [facility] [address] [place] [address] Dr. Braulio Fritz FREE THYROXINE INDEX T7on FTI 2.39 Normal 1.30-4.50 [facility] Comment on above: Performed By: #### I NSULIN #### [facility] [address] [place] [address] Dr. Braulio Fritz T3U 38.0 % Normal 33.0-40.0 [facility] Comment on above: Performed By: #### I NSULIN #### [facility] [address] [place] [address] Dr. Braulio Fritz T4 [Mass/Vol] 6.30 ug/dL Normal 4.50-12.10 [facility] Comment on above: Performed By: #### I NSULIN #### [facility] [address] [place] [address] Dr. Braulio Fritz GLYCOHEMOGLOBIN A1Con 2022 ADA RECOMMENDATION SEE BELOW Normal [facility] Comment on above: Result Comment: ADA RECOMMENDED LIMIT 4.0 - 6.0 ADA THERAPEUTIC TARGET < 7.0 ACTION SUGGESTED > 7.0 Performed By: #### A 1C #### [facility] [address] [place] [address] Dr. Braulio Fritz Glucose [Mass/Vol] 111 mg/dL Normal [facility] Comment on above: Performed By: #### A 1C #### [facility] [address] [place] [address] Dr. Braulio Fritz HbA1c (Bld) [Mass fraction] 5.5 % Normal 4.5-6.2 [facility] Comment on above: Performed By: #### A 1C #### [facility] [address] [place] [address] Dr. Braulio Fritz LIPID PROFILEon 01-27-2023 CHOL-HDL RATIO NORM SEE BELOW Normal [facility] Comment on above: Result Comment: 3.3 - 4.4 LOW RISK 4.4 - 7.1 AVERAGE RISK 7.1 - 11.0 MODERATE RISK >11.0 HIGH RISK Performed By: #### I NSULIN #### [facility] [address] [place] [address] Dr. Braulio Fritz Cholesterol [Mass/Vol] 162 mg/dL Normal <=200 [facility] Comment on above: Performed By: #### I NSULIN #### [facility] [address] [place] [address] Dr. Braulio Fritz Cholesterol in HDL [Mass/Vol] 48 mg/dL Normal 40-60 [facility] Comment on above: Performed By: #### I NSULIN #### [facility] [address] [place] [address] Dr. Braulio Fritz Cholesterol in LDL [Mass/Vol] 91.6 mg/dL Normal [facility] Comment on above: Performed By: #### I NSULIN #### [facility] [address] [place], [place] [id number] Dr. Braulio Fritz Cholesterol.total/Chol esterol in HDL [Mass ratio] 3.4 {ratio} Normal [facility] Comment on above: Performed By: #### I NSULIN #### [facility] [address] [place] [address] Dr. Braulio Fritz HDL NORMAL > or = 60 mg/dl - LO W CARDIOVASCULAR RISK <40 mg/dl - HIGH CARDIOVASCULAR RISK Normal [facility] Comment on above: Performed By: #### I NSULIN #### [facility] [address] [address] [address] Braulio Fritz LDL CALC NORMAL SEE BELOW Normal [facility] Comment on above: Result Comment: <100 mg/dl OPTIMAL 100 - 129 mg/dl NEAR OR ABOVE OPTIMAL 130 - 159 mg/dl BORDERLINE HIGH 160 - 189 mg/dl HIGH >190 mg/dl VERY HIGH Performed By: #### I NSULIN #### [facility] [address] [place] [address] Dr. Braulio Fritz Triglyceride [Mass/Vol] 112 mg/dL Normal <=150 [facility] Comment on above: Performed By: #### I NSULIN #### [facility] [address] [place] [address] Dr. Braulio Fritz VLDL CALC 22.4 mg/dL Normal [facility] Comment on above: Performed By: #### I NSULIN #### [facility] [address] [place] [address] Dr. Braulio Fritz PROF 14(COMP METB)on 023 Albumin [Mass/Vol] 3.6 g/dL Normal 3.4-5.0 [facility] Comment on above: Performed By: #### I NSULIN #### [facility] [address] [place] [address] Dr. Braulio Fritz Albumin/Globulin [Mass ratio] 1.1 {ratio} Normal [facility] Comment on above: Performed By: #### I NSULIN #### [facility] [address] [place] [address] Dr. Braulio Fritz ALP [Catalytic activity/Vol] 111 U/L Normal 46-116 [facility] Comment on above: Performed By: #### I NSULIN #### [facility] [address] [address] [address] Braulio Fritz ALT [Catalytic activity/Vol] 31 U/L Normal 16-63 [facility] Comment on above: Performed By: #### I NSULIN #### [facility] [address] [address] [address] Braulio Fritz Anion gap [Moles/Vol] 12.6 mmol/L Normal Th [facility] Comment on above: Performed By: #### I NSULIN #### [facility] [address] [address] [address] Braulio Fritz AST [Catalytic activity/Vol] 23 U/L Normal 15-37 [facility] Comment on above: Performed By: #### I NSULIN #### [facility] [address] [address] [address] Braulio Fritz Bilirubin [Mass/Vol] 1.7 mg/dL Critically high 0.2-1.0 [facility] Comment on above: Performed By: #### I NSULIN #### [facility] [address] [address] [address] Braulio Fritz Calcium [Mass/Vol] 9.1 mg/dL Normal 8.5-10.1 [facility] Comment on above: Performed By: #### I NSULIN #### [facility] [address] [address] [address] Braulio Fritz Chloride [Moles/Vol] 107 mmol/L Normal 98-107 [facility] Comment on above: Performed By: #### I NSULIN #### [facility] [address] [address] [address] Braulio Fritz CO2 [Moles/Vol] 28.7 mmol/L Normal 21.0-32.0 [facility] Comment on above: Performed By: #### I NSULIN #### [facility] [address] [address] [address] Braulio Fritz Creatinine [Mass/Vol] 1.41 mg/dL Critically high 0.70-1.30 [facility] Comment on above: Performed By: #### I NSULIN #### [facility] [address] [address] [address] Braulio Fritz EGFR-AF ETHIOPIAN 60 mL/min/1.73m2 Normal >=60 Th [facility] Comment on above: Performed By: #### I NSULIN #### [facility] [address] [address] [address] Braulio Fritz EGFR-NON AF ETHIOPIAN 49 mL/min/1.73m2 Critically low >=60 [facility] Comment on above: Performed By: #### I NSULIN #### [facility] [address] [address] [address] Braulio Fritz Globulin (S) [Mass/Vol] 3.2 g/dL Normal [facility] Comment on above: Performed By: #### I NSULIN #### [facility] [address] [address] [address] Braulio Fritz Glucose [Mass/Vol] 95 mg/dL Normal 74-106 [facility] Comment on above: Performed By: #### I NSULIN #### [facility] [address] [address] [address] Braulio Fritz Potassium [Moles/Vol] 4.3 mmol/L Normal 3.5-5.1 [facility] Comment on above: Performed By: #### I NSULIN #### [facility] [address] [address] [address] Braulio Fritz Protein [Mass/Vol] 6.8 g/dL Normal 6.4-8.2 [facility] Comment on above: Performed By: #### I NSULIN #### [facility] [address] [address] [address] Braulio Fritz Sodium [Moles/Vol] 144 mmol/L Normal 136-145 [facility] Comment on above: Performed By: #### I NSULIN #### [facility] [address] [place] [address] Dr. Braulio Fritz Urea nitrogen [Mass/Vol] 24.0 mg/dL Critically high 7.0-18.0 [facility] Comment on above: Performed By: #### I NSULIN #### [facility] [address] [place] [address] Dr. Braulio Fritz Urea nitrogen/Creatinine [Mass ratio] 17.0 mg/mg Normal [facility] Comment on above: Performed By: #### I NSULIN #### [facility] [address] [place] [address] Dr. Braulio Fritz SED RATE WESTERGRENon 2022 SED RATE 19 mm/hr Normal <=20 [facility] Comment on above: Performed By: #### I NSULIN #### [facility] [address] [place] [address] Dr. Braulio Fritz TSHon 01-27-2023 TSH 0.882 uIU/mL Normal 0.358-3.74 0 [facility] Comment on above: Performed By: #### I NSULIN #### [facility] [address] [place] [address] Dr. Braulio Fritz URIC ACID SERUMon 01-27-2023 Urate [Mass/Vol] 7.3 mg/dL Critically high 3.5-7.2 [facility] Comment on above: Performed By: #### I NSULIN #### [facility] [address] [place] [address] Dr. Braulio Fritz VITAMIN D 25 OHon 01-27-2023 VIT D 25-OH 44.5 ng/mL Normal [facility] Comment on above: Performed By: #### P MARGARITA VITAD #### [facility] [address] [place] [address] Dr. Braulio Fritz VIT D RANGES SEE BELOW Normal [facility] Comment on above: Result Comment: <20 ng/mL Vit D deficient 20 - <30 ng/mL Vit D insufficient 30 - 100 ng/mL Vit D sufficient >100 ng/mL Potential Toxicity Performed By: #### P MAGRARITA, VITAD #### [facility] [address] [place] [address] Dr. Braulio Fritz T4 LABCORPon 04-16-2022 T4 [Mass/Vol] 6.6 ug/dL Normal 4.5-12.0 [facility] Comment on above: Performed By: #### I NSULIN #### [facility] [address] [address] [address] Braulio Fritz NM STRESS/REST MULTIon 04-15 NM STRESS/REST MULTI Patient: JOSY CORTÉS Exam Date: 04/15/2022 : 1950 Gender:M Ordering : DR TESS FUENTES . Admission #: [id number] Family : Order #: [id number] CLICK HERE TO VIEW EXAM RADIOLOGY REPORT [...] Stahl M.D. on 04/16/2022 at 13:16 Normal [facility] ECHOCARDIO M/2D COMPLETEon 0 04-13-2022 ECHOCARDIO M/2D COMPLETE Patient: LÓPEZ CORTÉS Exam Date: 04/13/2022 : 1950 Gender:M Ordering : DR TESS FUENTES . Admission #: [id number] Family : Order #: [id number] CLICK HERE TO VIEW EXAM ECHOCARDIOGRAM REPORT [...] Area(A4C): 20.60 cm2 Left Atrium Systolic Volume(A2C): 89261 mm3 Left Atrium Systolic Volume(A4C): 33898 mm3 Mitral Valve MV E to A [...] M.D. on 04/13/2022 at 11:36 Normal [facility] OCC BLD IMMUNO SCREENon 03-22 OCCULT BLOOD Negative Normal NEGATIVE [facility] Comment on above: Performed By: #### O BSCRN #### [facility] [address] [place] [address] Dr. Braulio Fritz INSULINon 04-12-2022 Insulin 18.7 uIU/mL Normal 2.6-24.9 [facility] Comment on above: Performed By: #### I NSULIN #### [facility] [address] [place] [address] Dr. Braulio Fritz BNPon 04-10-2022 Natriuretic peptide B (Bld) [Mass/Vol] 672.0 pg/mL Normal <=900.0 [facility] Comment on above: Performed By: #### A 1C #### [facility] [address] [place] [address] Dr. Braulio Fritz CBC AUTO DIFFon 04-10-2022 BASO # 0.1 103/ul Normal 0.0-0.1 [facility] Comment on above: Performed By: #### I NSULIN #### [facility] [address] [address] [address] Braulio Fritz Basophils/100 WBC (Bld) 0.8 % Normal 0.2-2.0 [facility] Comment on above: Performed By: #### I NSULIN #### [facility] [address] [place] [address] Dr. Braulio Fritz EO # 0.3 103/ul Normal 0.0-0.7 [facility] Comment on above: Performed By: #### I NSULIN #### [facility] [address] [place] [address] Dr. Braulio Fritz Eosinophils/100 WBC (Bld) 4.0 % Normal 0.9-7.0 [facility] Comment on above: Performed By: #### I NSULIN #### [facility] [address] [place] [address] Dr. Braulio Fritz Erythrocyte distribution width (RBC) [Ratio] 13.7 % Normal 11.0-15.0 [facility] Comment on above: Performed By: #### I NSULIN #### [facility] [address] [place] [address] Dr. Braulio Fritz Hematocrit (Bld) [Volume fraction] 47.7 % Normal 42.0-54.0 [facility] Comment on above: Performed By: #### I NSULIN #### [facility] [address] [place] [address] Dr. Braulio Fritz Hemoglobin (Bld) [Mass/Vol] 15.9 g/dL Normal 14.0-18.0 [facility] Comment on above: Performed By: #### I NSULIN #### [facility] [address] [place] [address] Dr. Braulio Fritz IG # 0.02 10e3/ul Normal 0.00-0.03 [facility] Comment on above: Performed By: #### I NSULIN #### [facility] [address] [place] [address] Dr. Braulio Fritz IG % 0.3 % Normal 0.0-0.5 [facility] Comment on above: Performed By: #### I NSULIN #### [facility] [address] [place] [address] Dr. Braulio Fritz LYMPH # 1.6 103/ul Normal 1.2-3.8 [facility] Comment on above: Performed By: #### I NSULIN #### [facility] [address] [place] [address] Dr. Braulio Fritz Lymphocytes/100 WBC (Bld) 24.6 % Normal 20.5-60.0 [facility] Comment on above: Performed By: #### I NSULIN #### [facility] [address] [place] [address] Dr. Braulio Fritz MANUAL DIFF REQ NO Normal [facility] Comment on above: Performed By: #### I NSULIN #### [facility] [address] [place] [address] Dr. Braulio Fritz MCH (RBC) [Entitic mass] 31.6 pg Normal 25.9-34.0 [facility] Comment on above: Performed By: #### I NSULIN #### [facility] [address] [place] [address] Dr. Braulio Fritz MCHC (RBC) [Mass/Vol] 33.3 g/dL Normal 29.9-35.2 [facility] Comment on above: Performed By: #### I NSULIN #### [facility] [address] [place] [address] Dr. Braulio Fritz MCV (RBC) [Entitic vol] 94.8 fL Critically high 80.0-94.0 [facility] Comment on above: Performed By: #### I NSULIN #### [facility] [address] [place] [address] Dr. Braulio Fritz MONO # 0.7 103/ul Normal 0.3-0.8 [facility] Comment on above: Performed By: #### I NSULIN #### [facility] [address] [place] [address] Dr. Braulio Fritz Monocytes/100 WBC (Bld) 11.2 % Normal 1.7-12.0 [facility] Comment on above: Performed By: #### I NSULIN #### [facility] [address] [place] [address] Dr. Braulio Fritz NEUT # 3.8 103/ul Normal 1.4-6.5 [facility] Comment on above: Performed By: #### I NSULIN #### [facility] [address] [address] [address] Braulio Fritz Neutrophils/100 WBC (Bld) 59.1 % Normal 43.0-75.0 [facility] Comment on above: Performed By: #### I NSULIN #### [facility] [address] [place] [address] Dr. Braulio Fritz Platelet mean volume (Bld) [Entitic vol] 10.0 fL Normal 9.5-13.5 [facility] Comment on above: Performed By: #### I NSULIN #### [facility] [address] [place] [address] Dr. Braulio Fritz PLT 210 103/ul Normal 150-450 [facility] Comment on above: Performed By: #### I NSULIN #### [facility] [address] [place] [address] Dr. Braulio Fritz RBC 5.03 106/ul Normal 4.70-6.10 [facility] Comment on above: Performed By: #### I NSULIN #### [facility] [address] [place] [address] Dr. Braulio Fritz WBC 6.5 103/ul Normal 4.0-11.0 [facility] Comment on above: Performed By: #### I NSULIN #### [facility] [address] [place] [address] Dr. Braulio Fritz FREE THYROXINE INDEX T7on FTI 2.64 Normal 1.30-4.50 [facility] Comment on above: Performed By: #### A 1C #### [facility] [address] [place] [address] Dr. Braulio Fritz T3U 40.0 % Normal 33.0-40.0 [facility] Comment on above: Performed By: #### A 1C #### [facility] [address] [place] [address] Dr. Braulio Fritz T4 [Mass/Vol] 6.60 ug/dL Normal 4.50-12.10 [facility] Comment on above: Performed By: #### A 1C #### [facility] [address] [place] [address] Dr. Braulio Fritz GLYCOHEMOGLOBIN A1Con 2021 ADA RECOMMENDATION SEE BELOW Normal [facility] Comment on above: Result Comment: ADA RECOMMENDED LIMIT 4.0 - 6.0 ADA THERAPEUTIC TARGET < 7.0 ACTION SUGGESTED > 7.0 Performed By: #### A 1C #### [facility] [address] [place] [address] Dr. Braulio Fritz Glucose [Mass/Vol] 114 mg/dL Normal [facility] Comment on above: Performed By: #### A 1C #### [facility] [address] [place] [address] Dr. Braulio Fritz HbA1c (Bld) [Mass fraction] 5.6 % Normal 4.5-6.2 [facility] Comment on above: Performed By: #### A 1C #### [facility] [address] [place] [address] Dr. Braulio Fritz IRONon 04-10-2022 Iron [Mass/Vol] 105.0 ug/dL Normal 65.0-175.0 [facility] Comment on above: Performed By: #### B 12FOL, VITAD, PSASC, IRON #### [facility] [address] [place] [address] Dr. Braulio Fritz LIPID PROFILEon 04-10-2022 CHOL-HDL RATIO NORM SEE BELOW Normal [facility] Comment on above: Result Comment: 3.3 - 4.4 LOW RISK 4.4 - 7.1 AVERAGE RISK 7.1 - 11.0 MODERATE RISK >11.0 HIGH RISK Performed By: #### A 1C #### [facility] [address] [place] [address] Dr. Braulio Fritz Cholesterol [Mass/Vol] 132 mg/dL Normal <=200 [facility] Comment on above: Performed By: #### A 1C #### [facility] [address] [place] [address] [address] Braulio Fritz Cholesterol in HDL [Mass/Vol] 38 mg/dL Critically low 40-60 [facility] Comment on above: Performed By: #### A 1C #### [facility] [address] [address] [address] Braulio Fritz Cholesterol in LDL [Mass/Vol] 71.2 mg/dL Normal [facility] Comment on above: Performed By: #### A 1C #### [facility] [address] [place] [address] Dr. Braulio Fritz Cholesterol.total/Chol esterol in HDL [Mass ratio] 3.5 {ratio} Normal [facility] Comment on above: Performed By: #### A 1C #### [facility] [address] [place] [address] Dr. Braulio Fritz HDL NORMAL > or = 60 mg/dl - LO W CARDIOVASCULAR RISK <40 mg/dl - HIGH CARDIOVASCULAR RISK Normal [facility] Comment on above: Performed By: #### A 1C #### [facility] [address] [place] [address] Dr. Braulio Fritz LDL CALC NORMAL SEE BELOW Normal [facility] Comment on above: Result Comment: <100 mg/dl OPTIMAL 100 - 129 mg/dl NEAR OR ABOVE OPTIMAL 130 - 159 mg/dl BORDERLINE HIGH 160 - 189 mg/dl HIGH >190 mg/dl VERY HIGH Performed By: #### A 1C #### [facility] [address] [place] [address] Dr. Braulio Fritz Triglyceride [Mass/Vol] 114 mg/dL Normal <=150 [facility] Comment on above: Performed By: #### A 1C #### [facility] [address] [place] [address] Dr. Braulio Fritz VLDL CALC 22.8 mg/dL Normal [facility] Comment on above: Performed By: #### A 1C #### [facility] [address] [place] [address] [address] Braulio Fritz PROF 14(COMP METB)on 022 Albumin [Mass/Vol] 3.5 g/dL Normal 3.4-5.0 [facility] Comment on above: Performed By: #### A 1C #### [facility] [address] [address] [address] Braulio Fritz Albumin/Globulin [Mass ratio] 1.0 {ratio} Normal [facility] Comment on above: Performed By: #### A 1C #### [facility] [address] [address] [address] Braulio Fritz ALP [Catalytic activity/Vol] 115 U/L Normal 46-116 [facility] Comment on above: Performed By: #### A 1C #### [facility] [address] [place] [address] Dr. Braulio Fritz ALT [Catalytic activity/Vol] 29 U/L Normal 16-63 [facility] Comment on above: Performed By: #### A 1C #### [facility] [address] [address] [address] Braulio rFitz Anion gap [Moles/Vol] 10.9 mmol/L Normal [facility] Comment on above: Performed By: #### A 1C #### [facility] [address] [place] [address] Dr. Braulio Fritz AST [Catalytic activity/Vol] 23 U/L Normal 15-37 [facility] Comment on above: Performed By: #### A 1C #### [facility] [address] [address] [address] Braulio Fritz Bilirubin [Mass/Vol] 1.3 mg/dL Critically high 0.2-1.0 [facility] Comment on above: Performed By: #### A 1C #### [facility] [address] [place] [address] Dr. Braulio Fritz Calcium [Mass/Vol] 8.8 mg/dL Normal 8.5-10.1 [facility] Comment on above: Performed By: #### A 1C #### [facility] [address] [address] [address] Braulio Fritz Chloride [Moles/Vol] 106 mmol/L Normal 98-107 [facility] Comment on above: Performed By: #### A 1C #### [facility] [address] [place] [address] Dr. Braulio Frizt CO2 [Moles/Vol] 27.5 mmol/L Normal 21.0-32.0 [facility] Comment on above: Performed By: #### A 1C #### [facility] [address] [place] [address] Dr. Braulio Fritz Creatinine [Mass/Vol] 1.68 mg/dL Critically high 0.70-1.30 [facility] Comment on above: Performed By: #### A 1C #### [facility] [address] [place] [address] Dr. Braulio Fritz EGFR-AF ETHIOPIAN 49 mL/min/1.73m2 Critically low >=60 [facility] Comment on above: Performed By: #### A 1C #### [facility] [address] [place] [address] Dr. Braulio Fritz EGFR-NON AF ETHIOPIAN 40 mL/min/1.73m2 Critically low >=60 [facility] Comment on above: Performed By: #### A 1C #### [facility] [address] [place] [address] Dr. Braulio Fritz Globulin (S) [Mass/Vol] 3.6 g/dL Normal [facility] Comment on above: Performed By: #### A 1C #### [facility] [address] [place] [address] Dr. Braulio Fritz Glucose [Mass/Vol] 109 mg/dL Critically high 74-106 [facility] Comment on above: Performed By: #### A 1C #### [facility] [address] [place] [address] Dr. Braulio Fritz Potassium [Moles/Vol] 4.4 mmol/L Normal 3.5-5.1 [facility] Comment on above: Performed By: #### A 1C #### [facility] [address] [place] [address] Dr. Braulio Fritz Protein [Mass/Vol] 7.1 g/dL Normal 6.4-8.2 [facility] Comment on above: Performed By: #### A 1C #### [facility] [address] [place] [address] Dr. Braulio Fritz Sodium [Moles/Vol] 140 mmol/L Normal 136-145 [facility] Comment on above: Performed By: #### A 1C #### [facility] [address] [place] [address] Dr. Braulio Fritz Urea nitrogen [Mass/Vol] 24.0 mg/dL Critically high 7.0-18.0 [facility] Comment on above: Performed By: #### A 1C #### [facility] [address] [place] [address] Dr. Braulio Fritz Urea nitrogen/Creatinine [Mass ratio] 14.3 mg/mg Normal [facility] Comment on above: Performed By: #### A 1C #### [facility] [address] [place] [address] Dr. Braulio Fritz TSHon 04-10-2022 TSH 0.740 uIU/mL Normal 0.358-3.74 0 [facility] Comment on above: Performed By: #### A 1C #### [facility] [address] [place] [address] Dr. Braulio Fritz TSH RANGE SEE BELOW Normal [facility] Comment on above: Result Comment: <0.3 4 UIU/ml HYPERTHYROID 0.34-5.60 UIU/ml EUTHYROID >5.60 UIU/ml HYPOTHYROID Performed By: #### A 1C #### [facility] [address] [place] [address] Dr. Braulio Fritz VIT B12 AND FOLATEon 022 Cobalamin (Vitamin B12) [Mass/Vol] 547.0 pg/mL Normal 193.0-986. 0 [facility] Comment on above: Performed By: #### B 12FOL, VITAD, PSASC, IRON #### [facility] [address] [place] [address] Dr. Braulio Fritz FOLATE 17.80 ng/mL Normal 8.60-58.90 [facility] Comment on above: Performed By: #### B 12FOL, VITAD, PSASC, IRON #### [facility] [address] [address] [address] Braulio Fritz VITAMIN D 25 OHon 04-10-2022 VIT D 25-OH 50.4 ng/mL Normal [facility] Comment on above: Performed By: #### B 12FOL, VITAD, PSASC, IRON #### [facility] [address] [address] [address] Braulio Fritz VIT D RANGES SEE BELOW Normal [facility] Comment on above: Result Comment: <20 ng/mL Vit D deficient 20 - <30 ng/mL Vit D insufficient 30 - 100 ng/mL Vit D sufficient >100 ng/mL Potential Toxicity Performed By: #### B 12FOL, VITAD, PSASC, IRON #### [facility] [address] [place] [address] Dr. Braulio Fritz XR CHEST 2 Von [...] RJ LEON Date: 2022-04-09 12:41 Normal [facility] SMALL JOINT/BURSA INJECTION AND/OR ASPIRATION: [...] fashion. The patient was prepped with alcohol. [facility] C REACTIVE PROTEINon 022 CRP [Mass/Vol] 11.2 mg/L High 0-10.0 [facility] Comment on above: Performed By: #### C REACT, ESR #### Testing performed at [address] [place] [address] ESRon 11-27-2021 ESR (Bld) [Velocity] 27 mm/h High 0-20 [facility] Comment on above: Performed By: #### C REACT, ESR #### Testing performed at [address] [address] C REACTIVE PROTEINon 021 CRP [Mass/Vol] 6.9 mg/L 0 - 10.0 MG/L [facility] SEDIMENTATION RATE, AUTOMATE Don 10-29-2021 ESR (Bld) [Velocity] 33 mm/h High [facility] Interpretation and review of laboratory results Abnormal [facility] CBC, EDIF, PLATELETon 2019 ABSOLUTE BASOPHIL COUNT 0.1 10*3/uL 0 - 0.2 10*3/uL [facility] Basophils/100 WBC (Bld) 0.5 % 0 - 2 % [facility] Differential cell count method Nom (Bld) AUTO DIFF % [facility] Eosinophils (Bld) [#/Vol] 0.00 10*3/uL 0 - 0.7 10*3/uL [facility] Eosinophils/100 WBC (Bld) 0.1 % 0 - 11 % [facility] Erythrocyte distribution width (RBC) [Ratio] 16.4 % High 11.5 - 14.5 % [facility] Hematocrit (Bld) [Volume fraction] 34.0 % Low 42 - 52 % [facility] Hemoglobin (Bld) [Mass/Vol] 10.9 g/dL Low [facility] Interpretation and review of laboratory results Abnormal [facility] Lymphocytes (Bld) [#/Vol] 0.90 10*3/uL Low 1.2 - 3.4 10*3/uL [facility] Lymphocytes/100 WBC (Bld) 6.9 % Low 20 - 55 % [facility] MCH (RBC) [Entitic mass] 27.8 pg 26 - 35 PG [facility] MCHC (RBC) [Mass/Vol] 32.1 g/dL [facility] MCV (RBC) [Entitic vol] 86.4 fL [facility] Monocytes (Bld) [#/Vol] 0.9 10*3/uL High 0 - 0.7 10*3/uL [facility] Monocytes/100 WBC (Bld) 7.1 % 0 - 10 % [facility] Neutrophils (Bld) [#/Vol] 11.2 10*3/uL High 1.4 - 6.5 10*3/uL [facility] Neutrophils/100 WBC (Bld) 85.4 % High 37 - 75 % [facility] Platelet mean volume (Bld) [Entitic vol] 8.1 fL [facility] Platelets (Bld) [#/Vol] 247 10*3/uL 130 - 400 10*3/uL [facility] RBC (Bld) [#/Vol] 3.93 10*6/uL Low 4 - 6.1 10*6/uL [facility] WBC (Bld) [#/Vol] 13.1 10*3/uL High 3.6 - 11 10*3/uL [facility] REPEAT ABO/RH (D) TYPINGon 1 12-29-2019 ABO and Rh group Nom (Bld ) Positive [facility] XR KNEE LEFT 2 VIEWSon 10-28 IMPRESSION: Status p ost total knee arthroplasty revision with expected postoperative changes. [facility] [employer] [facility] EXAM: XR KNEE LEFT 2 VIEWS [...] the soft tissues with overlying skin elizabeth. [facility] User, Interfaces - 10/28/2020 3:18 PM EST [...] knee arthroplasty revision with expected postoperative changes. [facility] NUC WBC STUDYon 09-24-2020 IMPRESSION: Hyperemi a to the left knee with no definite evidence for infected prosthesis. [facility] NUCLEAR MEDICINE TOT AL BODY BONE SCAN [...] blood cell uptake in the right knee. [facility] User, Interfaces - 09/24/2020 5:04 PM EST [...] with no definite evidence for infected prosthesis. [facility] NUC 3 PHASE LIMITED BONE SCA Non 09-19-2020 IMPRESSION: Findings concerning for loosening or infection in the medial tibial plateau portion of the left knee prosthesis. No evidence of loosening or infection in the right knee. [facility] NUCLEAR MEDICINE TRIPLE-PHASE BONE SCAN HISTORY: [...] or delayed uptake in the right knee. [facility] User, Interfaces - 09/19/2020 2:47 PM EDT [...] loosening or infection in the right knee. [facility] LARGE JOINT/BURSA INJECTION AND/OR ASPIRATION: L kneeon [...] complications The patient was prepped with Chloraprep. [facility] Visit (PULMMAnna ) LÓPEZ CORTÉS ([id number]) 1950 M Date Time Provider Department 02/23/19 [...] local physician and understands to return to [facility] if there is evidence of functional [...] today's CT scan. Referring Provider: GADIEL RHODES [[id number]] Allergies As of Date: 02/23/2019 Noted Allergy [...] by GADIEL RHODES MD on 02/24/19 Normal [facility] CT CHEST WO IVCONon 02-24-[address] CHEST WO IVCON * * *Final Report* * * DATE OF EXAM: Feb 23 2019 12:40PM [facility] [place] IVCON / [...] lesion. Upper abdomen: Unchanged. IMPRESSION: STABLE CT. Hook Puller: ERICA Transcribe Date/Time: Feb 23 2019 4:08P Dictated by : LAURA DAVIDSON MD This examination was interpreted and the report reviewed and electronically signed by: LAURA DAVIDSON MD on Feb 23 2019 4:30PM EST [id number] Normal [facility] PROGRESSon 02-23-2019 Protein mass conc HNO ID: [id number] Author: Gadiel Rhodes Service: ? Author Type: [...] local physician and understands to return to [facility] if there is evidence of functional decline. No need for additional CT imaging at this time. 2. Lung nodules. 10 mm subpleural nodule incidentally noted on prior chest CT. Has smoking history but discontinued 35 years ago. Nodule now docimented to be stable since 10/2017. No need for additional surveillance. I will see Mr. Cortés back in 6 months. Normal [facility] Protein mass conc HNO ID: [id number] Author: Miguel Badillo (Alex) ALEX Moseley Service: Radiology Author Type: Clinical Film Reproducer Type: Progress Notes Filed: 02/23/2019 12:42 PM [...] Kat February 23, 2019 12:42 PM Normal [facility] CNOVon 10-16-2018 CNOV Office Visit (PULMMN ) LÓPEZ CORTÉS ([id number]) 1950 M Date Time Provider Department 10/16/18 [...] Diagnosis:Lung nodules [R91.8] Order(s):CT CHEST WO IVCON [[id number]] Order #: [id number] FUTURE Prescriptions as of 10/16/2018 Sig: PANTOPRAZOLE [...] by GADIEL RHODES MD on 10/22/18 Normal [facility] PROGRESSon 10-16-2018 Protein mass conc HNO ID: [id number] Author: Gadiel Rhodes Service: (none) Author Type: [...] Mr. Cortés back in 6 months. Normal [facility] CNOVon 03-20-2018 CNOV Office Visit (REYMMAnna ) LÓPEZ CORTÉS ([id number]) 1950 M Date Time Provider Department 03/20/18 3:30 PM GADIEL RHODES During your visit today, we recorded the following information about you: Temperature Pulse Respiration Blood pressure 98.1 degrees 93/minute 18/minute 122/84 Weight Height 107 kg 1.727 m Gadiel Rhodes MD 04/16/2018 10:48 PM Signed I had the pleasure of seeing López P Suad in my office today. Dr. 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 There are no occupational exposures. There [...] No history of dysuria, frequency or incontinence. BRICK UNLOADER TENDER: NA MUSCULOSKELETAL: Negative for joint pain or [...] MD 04/16/2018 10:48 PM Signed . [facility] [place] Note Mr. 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 Mold: No significant exposure. [...] personally reviewed by me Data Reviewed from [facility] (in addition to that noted in HPI, [...] Pre ? ? % ? Date ? 890031 ? Time ?02:22PM ? Height ?169.1 ? [...] management of GERD/heartburn ? Will be seeing supervisor metalizing (consider nasal probe study/pH study ? Recommend [...] Lisa Hazel MD Internal Medicine PGY-III Pager [phone] Attending Addendum: I have personally interviewed and [...] Rhodes M.D. Chair, Department of Pulmonary Medicine [facility] Referring Provider: SCOTT PEREZ [[id number]] Allergies As of Date: 03/20/2018 Noted Allergy Reaction SULFA (SULFONAMIDE ANTIBIOTICS) 03/20/2018 16 - Unknown Comments: Reaction as a kid - unsure Date Reviewed: 03/20/2018 Reviewed by: Jemal (Rn) ANOOP Wilks - Fully Assessed Reason for Visit: Consult [502] Primary Visit Diagnosis:ILD (interstitial lung disease) (HCC) [J84.9] Other Visit Diagnosis:Multiple lung nodules [R91.8] Order(s):SPIROMETRY BASELINE ONLY [[id number]] Order #: [id number] FUTURE LUNG DIFFUSION CAPACITY (DLCO) [[id number]] Order #: [id number] FUTURE Prescriptions as of 03/20/2018 Sig: PANTOPRAZOLE [...] March 20, 2018 Scott Perez MD (via [employer]) Re: López Tiffanie Cortés ( 1950) Dear Dr. 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 There are no occupational exposures. There [...] No history of dysuria, frequency or incontinence. BRICK UNLOADER TENDER: NA MUSCULOSKELETAL: Negative for joint pain or [...] M.D. Chair, Department of Pulmonary Medicine [facility] [place] [facility] Cc: Dr. Tess Fuentes [address] [place] [address] Dr. Francis Giron [address] [facility] [place] [address] Mr. López Cortés [address] [place] [id number] Encounter Status:Closed by GADIEL RHODES MD on 04/16/18 Normal [facility] PROGRESSon 03-20-2018 Protein mass conc HNO ID: [id number] Author: Gadiel Rhodes Service: (none) Author Type: Physician Type: Progress Notes Filed: 04/16/2018 10:48 PM Note Text: . [facility] [place] Note Mr. 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 Mold: No significant exposure. [...] personally reviewed by me Data Reviewed from [facility] (in addition to that noted in HPI, [...] Pre ? ? % ? Date ? 115165 ? Time ?02:22PM ? Height ?169.1 ? [...] management of GERD/heartburn ? Will be seeing supervisor metalizing (consider nasal probe study/pH study ? Recommend [...] Lisa Hazel MD Internal Medicine PGY-III Pager [phone] Attending Addendum: I have personally interviewed and [...] Rhodes M.D. 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 There are no occupational exposures. There [...] No history of dysuria, frequency or incontinence. BRICK UNLOADER TENDER: NA MUSCULOSKELETAL: Negative for joint pain or [...] (236 lb), SpO2 95% on RA. Mr. Crotés appears in no respiratory distress. Skin is [...] Mr. Cortés back in 6 months. Normal [facility] CT ABDOMEN PELVIS W IV [...] Hansen MD10/25/17Final result Normal [facility] CT CHEST W CONTRASTon 2016 [...] Hansen MD10/25/17Final result Normal [facility] CBC with Diffon 10-25-2017 Abs. Basophil 0.00 k/uL Normal 0.0-0.[address] [facility] Comment on above: Performed By: #### C AMINTA, CP ####[facility] [facility] [place] [address] Abs.Neutrophil (Seg) 16.04 k/uL High 1.3-9.1 [facility] Comment on above: Performed By: #### C AMINTA, CP ####[facility] [facility] [place] [address] Basophils/100 WBC Auto (Bld) 0 % Normal 0-[address] [facility] Comment on above: Performed By: #### C DP, CP ####[facility] [facility] [place] [address] Blood morphology Normal Normal [facility] Comment on above: Result Comment: Perf ormed at [facility] [address] [place] [address] Performed By: #### C DP, CP ####[facility] [place] [address] Eosinophils 0.00 10*3/uL Normal 0.0-0.[address] [facility] Comment on above: Performed By: #### C DP, CP ####[facility] [place] [address] Eosinophils/100 leukocytes 0 % Normal 0-[address] [facility] Comment on above: Performed By: #### C DP, CP ####[facility] [facility] [place] [address] Lymphocytes 0.96 10*3/uL Low 1.0-4.[address] [facility] Comment on above: Performed By: #### C DP, CP ####[facility] [place] [address] Lymphocytes/100 leukocytes 5 % Low 24-[address] [facility] Comment on above: Performed By: #### C DP, CP ####[facility] [facility] [place] [address] Monocytes 2.10 10*3/uL High 0.1-1.[address] [facility] Comment on above: Performed By: #### C DP, CP ####[facility] [place] [address] Monocytes/100 leukocytes 11 % High 1-[address] [facility] Comment on above: Performed By: #### C DP, CP ####[facility] [place] [address] Neutrophil (Seg) 84 % High 36-[address] [facility] Comment on above: Performed By: #### C DP, CP ####[facility] [place] [address] Erythrocyte distribution width Auto Ratio (RBC) 14.1 % Normal 11.5-14.[address] [facility] Comment on above: Performed By: #### C DP, CP ####[facility] [place], [place] [address] [place] [address] Erythrocytes (RBC) 5.37 10*6/uL Normal 4.5-5.9 [facility] Comment on above: Performed By: #### C DP, CP ####[facility] [place], [place] [address] [facility] [address] Hematocrit (HCT) 50.7 % Normal 41-[address] [facility] Comment on above: Performed By: #### C DP, CP ####[address] [place] [address] Hemoglobin mass conc (Bld) 16.8 g/dL Normal 13.5-17.[address] [facility] Comment on above: Performed By: #### C DP, CP ####[address] [address] MCH 31.2 pg Normal 26-[address] [facility] Comment on above: Performed By: #### C DP, CP ####[address] [place] [address] MCHC mass conc (RBC) 33.1 g/dL Normal 31-37 [facility] Comment on above: Performed By: #### C DP, CP ####[place] [address] [place] [address] MCV 94.4 fL Normal 80-[address] [facility] Comment on above: Performed By: #### C DP, CP ####[facility] [place] [address] Platelet mean volume (PMV) 9.0 fL Normal 6.0-12.[address] [facility] Comment on above: Performed By: #### C DP, CP ####[facility] [place] [address] Platelets 227 10*3/uL Normal 150-[address] [facility] Comment on above: Performed By: #### C DP, CP ####[facility] [place] [address] WBC (Leukocytes) 19.1 10*3/uL High 3.5-11.[address] [facility] Comment on above: Performed By: #### C DP, CP ####[facility] [place] [address] Auto Diff Performed NOT REPORTED Normal [facility] Comment on above: Performed By: #### C DP, CP ####[facility] [place] [address] Erythrocyte morphology NOT REPORTED Normal [facility] Comment on above: Performed By: #### C DP, CP ####[facility] [place] [address] Granulocytes/100 WBC (Bld) NOT REPORTED Normal 0.00-0.[address] [facility] Comment on above: Performed By: #### C DP, CP ####[address] [address] Immature granulocytes #/vol (Bld) NOT REPORTED Normal [address] [facility] Comment on above: Performed By: #### C DP, CP ####[facility] [place] [address] Platelets NOT REPORTED Normal [facility] Comment on above: Performed By: #### C DP, CP ####[address] [address] WBC Morphology NOT REPORTED Normal [facility] Comment on above: Performed By: #### C DP, CP ####[address] [address] Comp Metabolic Profon 2016 (cont.) Normal [facility] Comment on above: Result Comment: Aver age GFR for 60-69 years old: 85 mL/min/1.73sq mChronic Kidney Disease: <60 mL/min/1.73sq mKidney failure: <15 mL/min/1.73sq meGFR calculated using average adult body mass. Additional eGFR calculator available at:http://[email or web address] at [facility] [address] [place] [address] Performed By: #### C DP, CP ####[address] [address] Alanine aminotransferase (ALT) 35 U/L Normal 5-[address] [facility] Comment on above: Performed By: #### C DP, CP ####[facility] [place] [address] Albumin 4.4 g/dL Normal 3.5-5.[address] [facility] Comment on above: Performed By: #### C DP, CP ####[address] [address] Alkaline Phos 128 U/L Normal 40-[address] [facility] Comment on above: Performed By: #### C DP, CP ####[address] [place] [address] Anion gap 14 mmol/L Normal 9-[address] [facility] Comment on above: Performed By: #### C DP, CP ####[address] [place] [address] Aspartate aminotransferase (AST) 50 U/L High <[address] [facility] Comment on above: Performed By: #### C DP, CP ####[address] [place] [address] Bilirubin Ql (U) 1.12 mg/dL Normal 0.3-1.[address] [facility] Comment on above: Performed By: #### C DP, CP ####[address] [place] [address] Calcium 9.2 mg/dL Normal 8.6-10.[address] [facility] Comment on above: Performed By: #### C DP, CP ####[facility] [place] [address].[place] [address] Chloride 107 mmol/L Normal 98-[address] [facility] Comment on above: Performed By: #### C DP, CP ####[address] [place] [address] CO2 23 mmol/L Normal 20-[address] [facility] Comment on above: Performed By: #### C DP, CP ####[address] [facility] [place] [address] Creatinine 1.30 mg/dL High 0.70-1.[address] [facility] Comment on above: Performed By: #### C DP, CP ####[address] [place] [address] eGFR (non-black) 55 mL/min/{1.73_m2} Low >[address] [facility] Comment on above: Performed By: #### C DP, CP ####[facility] [place] [address] eGFR (non-black) mL/min/{1.73_m2} Normal >60 [facility] Comment on above: Performed By: #### C DP, CP ####[facility] [place] [address] Glucose mass conc 111 mg/dL High 70-99 [facility] Comment on above: Performed By: #### C DP, CP ####[address] [address] Potassium molar conc 4.3 mmol/L Normal 3.7-5.3 [facility] Comment on above: Performed By: #### C DP, CP ####[address] [address] Protein 7.3 g/dL Normal 6.4-8.[address] [facility] Comment on above: Performed By: #### C DP, CP ####[address] [address] Sodium 144 mmol/L Normal 135-[address] [facility] Comment on above: Performed By: #### C DP, CP ####[address] [address] Urea nitrogen 24 mg/dL High 8-[address] [facility] Comment on above: Performed By: #### C DP, CP ####[address] [address] Albumin/Globulin Ratio NOT REPORTED Normal 1.0-2.[address] [facility] Comment on above: Performed By: #### C DP, CP ####[address] [address] BUN/CRE Ratio NOT REPORTED Normal 9-[address] [facility] Comment on above: Performed By: #### C DP, CP ####[facility] [place] [address] Staging: NOT REPORTED Normal [facility] Comment on above: Performed By: #### C DP, CP ####[facility] [facility] [place] [address] Vital Signs Date Time Vital Sign Value Performing Clinician Facility 03-18-2025 09:28-0400 Body height 172.7 cm Adrien Foley KEY OPERATOR-SPA EXPERIENCE COORDINATOR Work Phone: [facility] 03-18-2025 09:28-0400 Body mass index (BMI) [Ratio] 35.79 kg/m2 Adrien Foley KEY OPERATOR-SPA EXPERIENCE COORDINATOR Work Phone: [facility] 03-18-2025 09:28-0400 Body weight 106.78 kg Adrien Foley KEY OPERATOR-SPA EXPERIENCE COORDINATOR Work Phone: [facility] 03-18-2025 09:28-0400 Diastolic blood pressure 78 mm[Hg] Adrien Foley KEY OPERATOR-SPA EXPERIENCE COORDINATOR Work Phone: [facility] 03-18-2025 09:28-0400 Heart rate 70 /min Adrien Foley KEY OPERATOR-SPA EXPERIENCE COORDINATOR Work Phone: [facility] 03-18-2025 09:28-0400 Systolic blood pressure 120 mm[Hg] Adrien Foley KEY OPERATOR-SPA EXPERIENCE COORDINATOR Work Phone: [facility] 08-14-2024 14:41-0400 Diastolic blood pressure 80 mm[Hg] Obey NILL [facility] 08-14-2024 14:41-0400 Heart rate 68 /min Obey NILL [facility] 08-14-2024 14:41-0400 Respiratory rate 16 /min Obey NILL [facility] 08-14-2024 14:41-0400 Systolic blood pressure 118 mm[Hg] Obey NILL [facility] 01-31-2024 08:42-0400 Blood Pressure Location Obey NILL [facility] 01-31-2024 08:42-0400 Diastolic blood pressure 82 mm[Hg] Obey NILL [facility] 01-31-2024 08:42-0400 Heart rate 83 /min Obey NILL [facility] 01-31-2024 08:42-0400 Respiratory rate 16 /min Obey NILL [facility] 01-31-2024 08:42-0400 Systolic blood pressure 120 mm[Hg] Obey NILL [facility] 11-23-2023 08:25-0500 Body height 172.7 cm Bhavana Addison KEY OPERATOR-SPA EXPERIENCE COORDINATOR Work Phone: [facility] 11-23-2023 08:25-0500 Body mass index (BMI) [Ratio] 34.21 kg/m2 Bhavana Nila KEY OPERATOR-SPA EXPERIENCE COORDINATOR Work Phone: [facility] 11-23-2023 08:25-0500 Body weight 102.06 kg Bhavana Nila KEY OPERATOR-SPA EXPERIENCE COORDINATOR Work Phone: [facility] 05-16-2023 09:32-0400 Blood Pressure Location Darwin RICHMOND [facility] 05-16-2023 09:32-0400 Diastolic blood pressure 75 mm[Hg] Darwin RICHMOND [facility] 05-16-2023 09:32-0400 Heart rate 75 /min Darwin RICHMOND [facility] 05-16-2023 09:32-0400 Respiratory rate 16 /min Darwin RICHMOND [facility] 05-16-2023 09:32-0400 Systolic blood pressure 129 mm[Hg] Darwin RICHMOND [facility] 06-16-2022 10:13-0400 Body height 172.7 cm Barak Hebert MD Work Phone: [facility] 06-16-2022 10:13-0400 Body mass index (BMI) [Ratio] 35.28 kg/m2 Barak Hebert MD Work Phone: [facility] 06-16-2022 10:13-0400 Body weight 105.23 kg Barak Hebert MD Work Phone: [facility] 05-26-2022 07:57-0400 Body height 172.7 cm Gadiel Floyd MD Work Phone: [facility] 05-26-2022 07:57-0400 Body mass index (BMI) [Ratio] 35.28 kg/m2 Gadiel Floyd MD Work Phone: [facility] 05-26-2022 07:57-0400 Body temperature 97.7 [degF] Gadiel Floyd MD Work Phone: [facility] 05-26-2022 07:57-0400 Body weight 105.23 kg Gadiel Floyd MD Work Phone: [facility] 02-17-2022 12:58-0400 Body height 172.7 cm Gadiel Floyd MD Work Phone: [facility] 02-17-2022 12:58-0400 Body mass index (BMI) [Ratio] 36.81 kg/m2 Gadiel Floyd MD Work Phone: [facility] 02-17-2022 12:58-0400 Body temperature 98.2 [degF] Gadiel Floyd MD Work Phone: [facility] 02-17-2022 12:58-0400 Body weight 109.8 kg Gadiel Floyd MD Work Phone: [facility] 10-29-2021 11:09-0500 Body height 172.7 cm Bhavana [place] KEY OPERATOR-SPA EXPERIENCE COORDINATOR Work Phone: [facility] 10-29-2021 11:09-0500 Body mass index (BMI) [Ratio] 36.49 kg/m2 Bhavana [place] KEY OPERATOR-SPA EXPERIENCE COORDINATOR Work Phone: [facility] 10-29-2021 11:09-0500 Body temperature 97.2 [degF] Bhavana [place] KEY OPERATOR-SPA EXPERIENCE COORDINATOR Work Phone: [facility] 10-29-2021 11:09-0500 Body weight 108.86 kg Bhavana [place] KEY OPERATOR-SPA EXPERIENCE COORDINATOR Work Phone: [facility] 11-19-2020 11:08-0500 BMI (Body Mass Index) 34.21 kg/m2 [facility] 11-19-2020 11:08-0500 Body Temperature 97.59 [degF] [facility] 11-19-2020 11:08-0500 Body weight 102.06 kg [facility] 11-19-2020 11:08-0500 Height 172.7 cm [facility] 10-29-2020 15:11-0500 BP Diastolic 72 mm[Hg] [facility] [employer] [facility] 10-29-2020 15:11-0500 BP Systolic 148 mm[Hg] [facility] [employer] [facility] 10-29-2020 15:11-0500 Pulse (Heart Rate) 74 /min [facility] 10-29-2020 15:11-0500 Pulse Oximetry 100 % [facility] [employer] [facility] 10-29-2020 15:11-0500 Respiratory Rate 16 /min [facility] [employer] [facility] 10-29-2020 08:00-0500 Body Temperature 97.39 [degF] [facility] [employer] [facility] 10-28-2020 15:15-0500 BMI (Body Mass Index) 32.23 kg/m2 [facility] [employer] [facility] 10-28-2020 15:15-0500 Body weight 96.[address] [facility] [employer] [facility] 10-28-2020 15:15-[address] [facility] [employer] [facility] 09-11-2020 13:55-0400 BMI (Body Mass Index) 31.96 kg/m2 [facility] [employer] [facility] 09-11-2020 13:55-0400 Body Temperature 97.11 [degF] [place] [employer] 09-11-2020 13:55-0400 Body weight 95.[address] [facility] [employer] [facility] 09-11-2020 13:55-[address] [facility] [employer] [facility] Encounters Encounter Date Encounter Type Care Provider Facility Start: 03-26-2025 End: 03-26-2025 Patient encounter procedure Tess Fuentes MD Work Phone: [facility] [place] Work Phone: Start: 03-26-2025 End: 03-26-2025 ambulatory Tess Fuentes MD Work Phone: [facility] Work Phone: Start: 03-18-2025 End: 03-18-2025 Office consultation new/estab patient 60 min Adrien Foley KEY OPERATOR-SPA EXPERIENCE COORDINATOR Work Phone: [facility] Comment on above: Dyspnea on exertion (Primary Dx); Palpitations; Abnormal EKG; Other fatigue; BMI 35.0-35.9,adult; Mixed hyperlipidemia; Essential hypertension Start: 03-18-2025 End: 03-18-2025 ambulatory ADRIEN Ramirez [facility] Start: 10-23-2024 End: 10-23-2024 ambulatory Obey ALAS Facility:[facility] Start: 10-23-2024 End: 10-23-2024 Patient encounter procedure Obey ALAS [facility] Start: 09-18-2024 End: 09-18-2024 ambulatory Obey R NILL Facility: [facility] Start: 09-18-2024 End: 09-18-2024 Patient encounter procedure Obey R NILL [facility] Start: 09-14-2024 ambulatory Obey R NILL Facility : [place] Start: 08-29-2024 End: 08-29-2024 ambulatory Obey R Nill [facility] Work Phone: Start: 08-29-2024 End: 08-29-2024 Departed Referred MD Obey Alas Work Phone: [facility] Start: 08-29-2024 End: 08-29-2024 ambulatory Obey R NILL Facility:[id number] Start: 08-14-2024 End: 08-14-2024 ambulatory Obey R NILL Facility: [facility] Start: 08-14-2024 End: 08-14-2024 Patient encounter procedure Obey R NILL [facility] Start: 06-05-2024 End: 06-05-2024 ambulatory SOLOMON IGNACIO Not Available Start: 03-06-2024 End: 03-06-2024 ambulatory Obey R NILL Facility: [facility] Start: 03-06-2024 End: 03-06-2024 Patient encounter procedure Obey R NILL General Surgery Nill/Said [facility] Start: 02-28-2024 End: 02-28-2024 Departed Referred MD Obey Alas Work Phone: [facility] Start: 02-28-2024 End: 02-28-2024 ambulatory Obey R NILL [facility] Work Phone: Start: 02-28-2024 End: 02-28-2024 Patient encounter procedure Obey ALAS General Surgery Nill/Carina Ochoa Start: 01-31-2024 End: 01-31-2024 ambulatory Obey ALAS Facility:SHANEKA Terry Start: 01-31-2024 End: 01-31-2024 Patient encounter procedure Obey ALAS [facility] General Surgery [place] Start: 01-20-2024 ambulatory Obey ALAS Facility:Sheri Ochoa Start: 11-23-2023 End: 11-23-2023 Office outpatient visit 15 minutes Bhavana FLORES Work Phone: [facility] Comment on above: Hx of total knee art hroplasty, left (Primary Dx) Start: 11-23-2023 End: 11-23-2023 Subsequent hospital visit by physician Bhavana Addison APRN-CARINE Work Phone: [facility] Start: 05-16-2023 End: 05-16-2023 Patient encounter procedure Darwin RICHMOND [facility] Start: 01-27-2023 End: 01-28-[address] TESS FUENTES . 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 Facility: Start: 04-13-2022 End: 04-14-[address] TESS FUENTES . Facility:[facility] Start: 04-10-2022 End: 04-11-[address] TESS FUENTES . Facility:[facility] Start: 04-09-2022 End: 04-10-[address] TESS FUENTES . Facility:[facility] Start: 02-17-2022 ambulatory TESS FUENTES [facility] Start: 02-17-2022 End: 02-17-2022 Office outpatient new 30 minutes Gadiel Floyd MD Work Phone: [facility] Comment on above: Bilateral thumb pain (Primary Dx); Primary osteoarthritis of first carpometacarpal joint of left hand Start: 02-17-2022 End: 02-17-2022 Subsequent hospital visit by physician Gadiel Floyd MD Work Phone: [facility] Start: 12-17-2021 ambulatory BARAK [facility] Start: 12-17-2021 End: 12-17-2021 Office outpatient visit 15 minutes Barak Hebert MD Work Phone: [facility] Comment on above: Bilateral thumb pain (Primary Dx); Left knee pain, unspecified chronicity Start: 11-27-2021 ambulatory [facility] Start: 10-29-2021 End: 10-29-2021 Postop follow up visit related to original px Barak Hebert MD Work Phone: [facility] Comment on above: Hx of total knee art hroplasty, left (Primary Dx) Start: 10-29-2021 End: 10-29-2021 Subsequent hospital visit by physician Bhavana Addison KEY OPERATOR-SPA EXPERIENCE COORDINATOR Work Phone: [facility] Start: 02-26-2021 End: 04-08-2021 Subsequent hospital visit by physician Barak Hebert Work Phone: [facility] Start: 11-19-2020 End: 11-19-2020 Postop follow up visit related to original px Kaila Richmond Work Phone: [facility] Comment on above: Hx of total knee art hroplasty, left (Primary Dx); Postoperative pain of knee Start: 11-19-2020 End: 11-19-2020 Subsequent hospital visit by physician Kaila Richmond Work Phone: [facility] Start: 10-28-2020 End: 10-29-2020 Evaluation and management of inpatient Barak Pradeep Work Phone: [facility] ICU [...] visit by physician Barak Hebert Work Phone: [facility] Start: 09-11-2020 End: 09-11-2020 Office outpatient new 45 minutes Barak Hebert Work Phone: [facility] Comment on above: Left knee pain, unsp ecified chronicity (Primary Dx); Pain in prosthetic joint, initial encounter Start: 02-23-2019 End: 02-26-2019 Patient encounter procedure GADIEL RHODES [facility] Start: 10-16-2018 End: 10-23-2018 Patient encounter procedure GADIEL RHODES [facility] Start: 03-20-2018 End: 04-19-2018 Patient encounter procedure GADIEL RHODES [facility] Start: 11-23-2017 End: 11-24-2017 Ambulatory DEFAULT PHYSICIAN [facility] Start: 10-25-2017 End: 10-26-2017 Emergency department patient visit ROBERTO GRUBER [facility] Procedures Date Procedure Procedure Detail Performing Clinician Start: 03-18-2025 Ecg routine ecg w/le ast 12 lds w/i&r Adrien Foley KEY OPERATOR-SPA EXPERIENCE COORDINATOR Work Phone: Start: 08-29-2024 Excisional biopsy of basal cell carcinoma Obey ALAS Start: 02-28-2024 Excision of basal ce ll carcinoma Obey ALAS Start: 01-27-[address] SHIRLEY FUENTES . Comment on above: Performed By: #### P SASC, VITAD #### [facility] [address] [place] [address] Dr. Braulio Fritz Start: 04-10-[address] SHIRLEY FUENTES . Comment on above: Performed By: #### B 12FOL, VITAD, PSASC, IRON #### [facility] [address] [place] [address] Dr. Braulio Fritz Start: 02-17-2022 Arthrocentesis aspir &/inj small jt/bursa w/o us Irene Parker Start: 10-29-2020 Complete blood count with white cell differential, automated Bhavana Addison Work Phone: Start: 10-28-2020 X-ray of left knee Bhavana [employer] Work Phone: Start: 10-28-2020 End: 10-28-2020 Cul bact roberto aerobic isol xcpt ur blood/stool [facility] Work Phone: Start: 10-28-2020 End: 10-28-2020 Culture bacterial any source anaerobic iso&id Barak [employer] Work Phone: Start: 10-28-2020 End: 10-28-2020 Fungus identified in Unspecified specimen by Culture [employer] Phone: Start: 10-28-2020 End: 10-28-2020 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 specific culture [facility] Work Phone: Start: 10-28-2020 Bacteria identified in Body fluid by Culture Barak Hebert Work Phone: Start: 10-28-2020 End: 10-28-2020 Revj tot [...] GRUBER Start: 10-25-2017 CBC WITH AUTO DIFFERENTIAL ROBETRO GRUBER Start: 10-25-2017 COMPREHENSIVE METABO LIC PANEL ROBERTO GRUBER Start: 10-25-2017 EKG 12-LEAD ROBERTO HOUSTON Start: 11-21-2015 Colonoscopy Obey SELBY Arthroplasty of knee Darwin RICHMOND Arthroplasty of knee Obey ALAS Repair of meniscus Obey WOODS Revision of knee arthroplasty Obey VALLESSyd Plan of Treatment Date Care Activity Detail Author Start: 09-23-2034 DTaP/Tdap/Td Vaccines (2 - Td or Tdap) DTaP/Tdap/Td Vaccines (2 - Td or Tdap) [facility] Start: 05-02-2025 End: 05-02-2025 Patient encounter procedure 05/02/2025 11:30 AM EDT Office Visit [address] [place] [address] Fidelina Albarado MD [address] [place] [address] [facility] Start: 03-26-2025 End: 03-26-2025 Professional / ancillary services management 03/26/2025 8:00 AM EDT Ancillary Procedure [facility] [address] [place] [id number] [facility] Start: 03-18-2025 End: 03-18-2026 Alanine aminotransferase [Enzymatic activity/volume] in Serum or Plasma by With P-5'-P Alanine Aminotransferase Lab Routine Dyspnea on exertion Other fatigue Expected: 03/18/2025 (Approximate), Expires: 03/18/2026 [facility] Work Phone: Comment on above: Expected: 03/18/2025 (Approximate), Expi res: 03/18/2026 Start: 03-18-2025 End: 03-18-2026 Aspartate aminotransferase [Enzymatic activity/volume] in Serum or Plasma by With P-5'-P Aspartate Aminotransferase Lab Routine Dyspnea on exertion Other fatigue Expected: 03/18/2025 (Approximate), Expires: 03/18/2026 [facility] Work Phone: Comment on above: Expected: 03/18/2025 (Approximate), Expi res: 03/18/2026 Start: 03-18-2025 End: 03-18-2026 Basic metabolic 2000 panel - Serum or Plasma Basic Metabolic Panel Lab Routine Dyspnea on exertion Other fatigue Expected: 03/18/2025 (Approximate), Expires: 03/18/2026 [facility] Work Phone: Comment on above: Expected: 03/18/2025 (Approximate), Expi res: 03/18/2026 Start: 03-18-2025 End: 03-18-2026 CBC panel - Blood by Automated count CBC Lab Routine Dyspnea on exertion Other fatigue Expected: 03/18/2025 (Approximate), Expires: 03/18/2026 [facility] Work Phone: Comment on above: Expected: 03/18/2025 (Approximate), Expi res: 03/18/2026 Start: 03-18-2025 End: 03-18-2026 Holter monitor study Holter Or Event Security Specialist Cardiac Services Routine Palpitations Expected: 03/18/2025 (Approximate), Expires: 03/18/2026 [facility] Work Phone: Comment on above: Expected: 03/18/2025 (Approximate), Expi res: 03/18/2026 Start: 03-18-2025 End: 03-18-2026 Lipid 1996 panel - Serum or Plasma Lipid Panel Lab Routine Dyspnea on exertion Palpitations Abnormal EKG Other fatigue Mixed hyperlipidemia Expected: 03/18/2025 (Approximate), Expires: 03/18/2026 [facility] Work Phone: Comment on above: Expected: 03/18/2025 (Approximate), Expi res: 03/18/2026 Start: 03-18-2025 End: 03-18-2026 NM Heart Perfusion W stress and W radionuclide IV Nuclear Stress Test Cardiac Nuclear Medicine Routine Dyspnea on exertion Palpitations Abnormal EKG Expected: 03/18/2025 (Approximate), Expires: 03/18/2026 [facility] Work Phone: Comment on above: Expected: 03/18/2025 (Approximate), Expi res: 03/18/2026 Start: 03-18-2025 End: 03-18-2027 US Heart Transthoracic Transthoracic Echo Complete Echocardiography Routine Dyspnea on exertion Palpitations Expected: 03/18/2025 (Approximate), Expires: 03/18/2027 [facility] Service Area Work Phone: Comment on above: Expected: 03/18/2025 (Approximate), Expi res: 03/18/2027 Start: 08-29-2024 [facility] Start: 07-22-2024 COVID-19 Vaccine ( season) COVID-19 Vaccine ( season) [facility] Start: 07-22-2023 Influenza vaccination INFLUENZA VACCINE (#1) [facility] Start: 08-25-2022 End: 08-25-2022 Patient encounter procedure 08/25/2022 Office Visit Orthopaedics Gadiel Floyd MD [address] [place] [address] [facility] Start: 07-22-2022 Influenza vaccination INFLUENZA VACCINE (#1) [facility] Start: 06-16-2022 End: 06-16-2022 Patient encounter procedure 06/16/2022 Office Visit Orthopaedics Barak Hebert MD [address] [facility] [place] [address] [facility] Start: 05-26-2022 End: 05-26-2022 Patient encounter procedure 05/26/2022 Office Visit Orthopaedics Gadiel Floyd MD [address] [place] [address] [facility] Start: 04-19-2022 COVID-19 VACCINE (2 - Pfizer series) COVID-19 VACCINE (2 - Pfizer series) [facility] Start: 02-17-2022 End: 02-11-2023 XR Thumb - left Views [facility] [employer] [facility] Work Phone: Comment on above: 1 Occurrences starting 02/17/2022 until 02/17/2022 Expected: 02/17/2022 , Expires: 02/11/2023 Start: 02-17-2022 End: 02-11-2023 XR Thumb - right Views [facility] Work Phone: Comment on above: 1 Occurrences starting 02/17/2022 until 02/17/2022 Expected: 02/17/2022 , Expires: 02/11/2023 Start: 02-17-2022 End: 02-17-2022 Patient encounter procedure 02/17/2022 Office Visit Orthopaedics Gadiel Floyd MD [address] [place] [address] [facility] Start: 10-29-2021 End: 10-29-2021 Office Visit 10/29/2021 Office Visit Orthopaedics Bhavana Addison, KEY OPERATOR-SPA EXPERIENCE COORDINATOR [address] [place] [address] [facility] Start: 07-22-2021 Influenza vaccination [facility] Start: 02-19-2021 End: 02-19-2021 Office Visit 02/19/2021 Office Visit Orthopaedics Barak Hebert MD [address] [place] [address] [phone] [facility] Start: 11-19-2020 End: 11-19-2020 Office Visit 11/19/2020 Office Visit Orthopaedics Kaila Richmond, PAShyannC [address] [place] [address] [phone] [facility] Start: 10-28-2020 End: 10-28-2020 Hospital Encounter [facility] Comment on above: 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, initial encounter REVISION ARTHROPLAST Y KNEE left Start: 10-02-2020 End: 10-02-2020 Pre-Operative Nurse Assessment 10/02/2020 Pre-Operative Nurse Assessment Internal Medicine [facility] Pre Admission Start: 09-24-2020 Hospital Encounter 09/24/2020 Hospital Encounter Nuclear Medicine Barak Hebert MD [address] [place] [address] [phone] [facility] Nuclear Medicine Start: 09-23-2020 End: 09-23-2020 Appointment 09/23/2020 Appointment Nuclear Medicine Barak Hebert MD [address] [place] [address] [phone] [facility] Medicine Start: 09-19-2020 End: 09-19-2020 Hospital Encounter [facility] Nuclear Medicine Start: 09-11-2020 End: 09-11-2021 Nuclear medicine imaging procedure NUC BONE MARROW LIMITED AREA Imaging Routine Pain in prosthetic joint, initial encounter Expected: 09/11/2020, Expires: 09/11/2021 [facility] Comment on above: Expected: 09/11/2020, Expires: Start: 09-11-2020 End: 09-11-2021 Nuclear medicine procedure NUC WBC STUDY Imaging Routine Pain in prosthetic joint, initial encounter Expected: 09/11/2020, Expires: 09/11/2021 [facility] Comment on above: Expected: 09/11/2020, Expires: 1 Start: 09-11-2020 End: 09-11-2021 Radioisotope scan of bone NUC BONE SCAN WHOLE BODY Imaging Routine Pain in prosthetic joint, initial encounter Expected: 09/11/2020, Expires: 09/11/2021 [facility] Comment on above: Expected: 09/11/2020, Expires: 1 Start: 08-21-2018 Pneumococcal vaccination [facility] Start: 01-25-2016 Abdominal aortic aneurysm screening [facility] Start: 01-25-2016 Pneumococcal vaccination [facility] [place] Start: 2011 RSV High Risk: (Elderly (60+) or Population) (1 - Risk 60-74 years 1-dose series) RSV High Risk: (Elderly (60+) or Population) (1 - Risk 60-74 years 1-dose series) [facility] Start: 2001 Colonoscopy COLORECTAL CANCER SCREENING DISCUSSION [facility] Start: 2001 Prostate specific antigen measurement PROSTATE CANCER SCREENING DISCUSSION [facility] Start: 2001 Zoster vaccine hzv live for subcutaneous use ZOSTER (SHINGLES) VACCINE (1 of 2) [facility] Start: 2001 Zoster Vaccines (1 of 2) Zoster Vaccines (1 of 2) [facility] Start: 01-25-1996 Colonoscopy COLORECTAL CANCER SCREENING DISCUSSION [facility] Start: 01-25-1996 Screening for malignant neoplasm of colon COLORECTAL CANCER SCREENING DISCUSSION [facility] Start: 1991 Fasting lipid profile LIPID SCREENING [facility] Start: 1991 Lipid panel LIPID SCREENING [facility] Start: 1970 Third diphtheria, tetanus and acellular pertussis (DTaP) vaccination TDAP (ADULT) [facility] Start: 1969 Hepatitis C screening Hepatitis C Screening [facility] Start: 1969 Tetanus vaccination TETANUS [facility] Start: 1967 COVID-19 VACCINE (1) COVID-19 VACCINE (1) [facility] Start: 1963 COVID-19 VACCINE (1) COVID-19 VACCINE (1) [facility] Start: 01-25-1956 COVID-19 VACCINE (1) COVID-19 VACCINE (1) [facility] Start: 1951 Hepatitis C antibody, confirmatory test HEPATITIS C VIRUS SCREENING [facility] Start: 1951 Hepatitis C screening HEPATITIS C VIRUS SCREENING [facility] Start: 1951 Lipid panel Lipid Panel [facility] Start: 1951 Medicare Annual Wellness Visit Medicare Annual Wellness Visit (AWV) [facility] Start: 1951 Screening for malignant neoplasm of colon [facility] Start: 1951 Tetanus vaccination TETANUS [facility] ANAEROBE CULTURE [facility] Comment on above: Release Upon Ordering for 1 Occurrences starting 10/28/2020 Bacteria identified Cx Nom (Body fld) BODY FLUID CULTURE AND DIRECT SMEAR Microbiology Routine 10/28/2020 12:35 PM EST [facility] Bacteria identified Cx Nom (Unsp spec) BACTERIAL CULTURE AND DIRECT SMEAR, LESION, TISSUE, DEVICE Microbiology Routine Mechanical loosening of internal left knee prosthetic joint, initial encounter Release Upon Ordering for 1 Occurrences starting 10/28/2020 [facility] Comment on above: Release Upon Ordering for 1 Occurrences starting 10/28/2020 ECG 12 Lead ECG 12 Lead ECG Routine Dyspnea on exertion 03/18/2025 9:30 AM EDT [facility] Work Phone: Fungus identified Cx Nom (Unsp spec) [facility] Comment on above: Release Upon Ordering for 1 Occurrences starting 10/28/2020 Mycobacterium sp identified Org specific cx Nom (Tiss) ACID FAST CULTURE, TISSUE Microbiology Routine Mechanical loosening of internal left knee prosthetic joint, initial encounter Release Upon Ordering for 1 Occurrences starting 10/28/2020 [facility] Comment on above: Release Upon Ordering for 1 Occurrences starting 10/28/2020 Mycobacterium sp identified Org specific cx Nom (Unsp spec) [facility] [employer] [facility] End: 09-23-2020 Nuclear medicine imaging procedure NUC BONE MARROW LIMITED AREA Imaging Routine Pain in prosthetic joint, initial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 dyspnea and respiratory abnormality Palpitations Abnormal EKG Nonspecific abnormal electrocardiogram (ECG) (EKG) Other fatigue BMI 35.0-35.9,adult Mixed hyperlipidemia Essential hypertension Unspecified essential hypertension documented in this encounter [facility] Work Phone: Hospital course Narrative No data available for this section [facility] No data available for this section [facility] No data available for this section [facility] Summary Purpose Family History No Family [...] for this section No Family History Records FoundNo Family History Records FoundNo Family History Records Found Advance Directives No Advanced Directives Records FoundDocuments on File Type Date Recorded Patient Expeller Operator Expl anation Advance Directives/Living Will 10/28/2020 9:12 AM LIVING WILL, POA Latest Code Status on File Code Status Date Activated Date Inactivated Comments Full Code 10/28/2020 3:43 PM Documents on File Type Date Recorded Patient Expeller Operator Expl anation Advance Directives/Living Will 10/28/2020 9:12 AM LIVING WILL, POA Latest Code Status on File Code Status Date Activated Date Inactivated Comments Full Code 10/28/2020 3:43 PM Latest Code Status on File Code Status Date Activated Date Inactivated Comments Full Code 10/28/2020 3:43 PM Advance Directive Response Recorded Date/ Time Advance Directives No March 26, 2025 8:28am Reason for Referral Status Reason Specialty Diagnoses / Procedures Referred By Contact Referred To Contact Auth Not Needed Nuclear Medicine Diagnoses Pain in prosthetic joint, initial encounter Procedures NUC BONE SCAN WHOLE BODY Barak Hebert MD [address] [place], [place] [id number] [facility] Nuclear Medicine [address] [place], [place] [id number] Status Reason Specialty Diagnoses / Procedures Referred By Contact Referred To Contact Auth Not Needed Nuclear Medicine Diagnoses Pain in prosthetic joint, initial encounter Procedures NUC WBC STUDY SC ABSCESS IMAGING, WHOLE BODY Barak Hebert MD [address] [place], [place] [id number] [facility] Nuclear Medicine [address] [place], [place] [id number] Status Reason Specialty Diagnoses / Procedures Referred By Contact Referred To Contact Auth Not Needed Nuclear Medicine Diagnoses Pain in prosthetic joint, initial encounter Procedures NUC BONE MARROW LIMITED AREA SC BONE MARROW IMAGING, LTD Barak Hebert MD [address] [place], [place] [id number] [facility] Nuclear Medicine [address] [place], [place] [phone] Status Reason Specialty Diagnoses / Procedures Referred By Contact Referred To Contact Pending Review Diagnoses Left knee pain, unspecified chronicity Procedures XR BONE LENGTH STUDY Barak Hebert MD [address] [place], [place] [id number] Status Reason Specialty Diagnoses / Procedures Referred By Contact Referred To Contact Pending Review Diagnoses Left knee pain, unspecified chronicity Procedures XR KNEE LEFT 3 VIEWS Barak Hebert MD [address] [place], [place] [id number] Status Reason Specialty Diagnoses / Procedures Referred By Contact Referred To Contact Closed Nuclear Medicine Diagnoses Pain in prosthetic joint, subsequent encounter Procedures NUC 3 PHASE LIMITED BONE SCAN SC BONE IMAGING, 3 PHASE Bhavana Addison, KEY OPERATOR-SPA EXPERIENCE COORDINATOR [address] [place], [place] [id number] [facility] Nuclear Medicine [address] [place], [place] [phone] Status Reason Specialty Diagnoses / Procedures Referred By Contact Referred To Contact New Request Diagnoses Hx of total knee arthroplasty, left Procedures XR KNEE LEFT 3 VIEWS Kaila Richmond PA-C [address] [place], [place] [phone] Status Reason Specialty Diagnoses / Procedures Referred By Contact Referred To Contact Closed Nuclear Medicine Diagnoses Pain in prosthetic joint, initial encounter Procedures NUC BONE MARROW LIMITED AREA SC BONE MARROW IMAGING, LTD Barak Hebert MD [address] [place], [place] [phone] [facility] Nuclear Medicine [address] [place] [phone] Specialty Diagnoses / Procedures Referred By Contac t Referred To Contact Diagnoses Hx of total knee arthroplasty, left Procedures XR KNEE LEFT 3 VIEWS Bhavana Addison, KEY OPERATOR-SPA EXPERIENCE COORDINATOR [address] [place], [place] [phone] Referral ID Status Reason Start Date Expiration Date V isits Requested Visits Authorized [id number] New Request 10/22/2021 11/16/2022 1 1 Specialty Diagnoses / Procedures Referred By Contac t Referred To Contact Physical Therapy Diagnoses Left knee pain, unspecified chronicity Barak Hebert MD [address] [place], [place] [phone] Referral ID Status Reason Start Date Expiration Date V isits Requested Visits Authorized [id number] New Request 12/17/2021 01/11/2023 1 1 Scheduling Instructions . Specialty Diagnoses / Procedures Referred By Contac t Referred To Contact Orthopaedic Surgery Diagnoses Bilateral thumb pain Barak Hebert MD [address] [place], [place] [phone] Gadiel Floyd MD [address] [place] [phone] Referral ID Status Reason Start Date Expiration Date V isits Requested Visits Authorized [id number] New Request 12/17/2021 01/11/2023 1 1 Specialty Diagnoses / Procedures Referred By Contac t Referred To Contact Diagnoses Bilateral thumb pain Procedures XR THUMB LEFT Gadiel Floyd MD [address] [place], [place] [phone] Referral ID Status Reason Start Date Expiration Date V isits Requested Visits Authorized [id number] New Request 02/11/2022 03/08/2023 1 1 Specialty Diagnoses / Procedures Referred By Contac t Referred To Contact Diagnoses History of revision of total replacement of left knee joint Procedures XR KNEE LEFT 3 VIEWS Barak Hebert MD [address] [place] [phone] Referral ID Status Reason Start Date Expiration Date V isits Requested Visits Authorized [id number] New Request 06/15/2022 07/10/2023 1 1 Referral ID Status Reason Start Date Expiration Date V isits Requested Visits Authorized [id number] New Request 11/22/2023 12/16/2024 1 1 History [...] nasal MRSA screening, scheduling an appointment for [facility] [place] and the potential surgical date, and reviewing [...] file Gets together: Not on file Attends zoroastrian service: Not on file Active member of [...] 09/11/2020 2:10 PM Patient: López Cortés MR#: [id number] : 1950 Age: 70 y.o. Referring Physician: [...] [x]cane, []bracing Are you followed by a grease refiner operator? [] [x] Name: Are you followed [...] Transfer Skill: Sit To Stand, Rehab Eval Eldon (Sit-Stand Transfers) other (see comments) (SBA) Physical Assist/Nonphysical Assist: Sit/Stand 1 person assist Weight-Bearing Restrictions: Sit/Stand weight-bearing as tolerated Assistive Device For Transfer: Sit/Stand 2 wheeled walker Gait Skills, PT Eval Level of Eldon: Gait stand-by assist Physical Assist/Nonphysical Assist: Gait 1 person assist Weight-Bearing Restrictions: Gait weight-bearing as tolerated Assistive Device For Transfer: Gait 2 wheeled walker Gait Distance (300ft) Gait Analysis, PT Eval Gait Pattern Used swing-through gait Gait Deviations Identified (Gait) decreased heel strike;other (see comments) (toe out ) Impairments Contributing To Gait Deviations pain;decreased ROM Stair Negotiation Level of Eldon: Stair Negotiation stand-by assist Physical Assist/Nonphysical Assist: [...] Transfer Skill: Sit To Stand, Rehab Eval [place]on (Sit-Stand Transfers) other (see comments) (SBA) Physical Assist/Nonphysical Assist: Sit/Stand 1 person assist Weight-Bearing Restrictions: Sit/Stand weight-bearing as tolerated Assistive Device For Transfer: Sit/Stand 2 wheeled walker Gait Skills, PT Eval Level of Eldon: Gait stand-by assist Physical Assist/Nonphysical Assist: Gait 1 person assist Weight-Bearing Restrictions: Gait weight-bearing as tolerated Assistive Device For Transfer: Gait 2 wheeled walker Gait Distance other (see comments) (125ft) Gait Analysis, PT Eval Gait Pattern Used swing-through gait Gait Deviations Identified (Gait) decreased heel strike;other (see comments) (toe out) Impairments Contributing To Gait Deviations pain;decreased ROM Stair Negotiation Level of Eldon: Stair Negotiation contact guard Physical Assist/Nonphysical Assist: [...] upon exit Therapist Information License # [id number] * Esperanza Avila MD - 10/28/2020 6:47 PM EST INPATIENT REHAB / SWINGBED PROGRESS NOTE Admit Date: 10/28/2020 Date of Evaluation: 10/28/20206:47 PM [facility] Rehab / Skilled bed LOS: 0 [...] dressing: dry and intact;dressing: transparent semipermeable 10/28/20 151 Securement sterile tape strips, secured with 10/28/20 151 Lumen 1 Patency/Maintenance IV infusing 10/28/20 151 Phlebitis 0-->no symptoms 10/28/201514 Infiltration 0-->no symptoms 10/28/20 151 Indication/Daily Review of Necessity fluid therapy 10/28/20 1502 Perineural Catheter 10/28/20 1230 left knee (Active) Site Assessment clean;dry;intact 10/28/20 151 Incision (Adult, Pediatric) 10/28/20 1230 Left knee (Active) Dressing Appearance no drainage;dry;intact 10/28/20 151 Appearance elizabeth intact;well approximated 10/28/201514 Drainage Amount none 10/28/201514 Wound Interventions ice pack/gel pack 10/28/20 151 Dressing other (see comments) 10/28/20 151 Intake/Output last 3 shifts: I/O last 3 [...] Supine to Sit, Rehab Eval Level of Eldon: Supine/Sit stand-by assist Physical Assist/Nonphysical Assist: Supine/Sit 1 person assist Transfer Skill: Sit to Stand, Rehab Eval Level of Eldon: Sit/Stand contact guard Physical Assist/Nonphysical Assist: Sit/Stand 1 person assist Weight-Bearing Restrictions: Sit/Stand weight-bearing as tolerated Assistive Device for Transfer: Sit/Stand wheeled walker Upper Body Dressing Level of Eldon independent Physical Assist/Nonphysical Assist set-up required Lower Body Dressing Level of Eldon moderate assist (50% patients effort) Physical Assist/Nonphysical Assist 1 person assist (including ZACKARY hose ) Toileting Level of Eldon contact guard Physical Assist/Nonphysical Assist 1 person assist Grooming Eldon Level (Grooming) supervision;wash face, hands General Therapy [...] hygiene training Therapist Information License # [id number] 1. Pt will complete LB dressing MOD [...] Supine to Sit, Rehab Eval Level of Eldon: Supine/Sit stand-by assist Physical Assist/Nonphysical Assist: Supine/Sit 1 person assist Transfer Skill: Sit To Stand, Rehab Eval [place]on (Sit-Stand Transfers) contact guard Physical Assist/Nonphysical Assist: Sit/Stand 1 person assist Weight-Bearing Restrictions: Sit/Stand weight-bearing as tolerated Assistive Device For Transfer: Sit/Stand 2 wheeled walker Gait Skills, PT Eval Level of Eldon: Gait contact guard Physical Assist/Nonphysical Assist: Gait 1 person assist Weight-Bearing Restrictions: Gait weight-bearing as tolerated Assistive Device For Transfer: Gait 2 wheeled walker Gait Distance 75 feet Gait Analysis, PT Eval Gait Pattern Used swing-through gait Gait Deviations Identified (Gait) decreased gait speed;decreased heel strike;decreased step length Impairments Contributing To Gait Deviations decreased ROM;decreased strength Stair Negotiation Level of Eldon: Stair Negotiation (not assessed at this time) [...] 11/19/2020 11:07 AM Patient: López Cortés MR#: [id number] : 1950 Age: 70 y.o. Referring Physician: [...] Laterality: Left; Surgeon: Barak Hebert MD; Location: [facility] OR KNEE SURGERY Left 05/07/2020 ---left tka [...] Date: 10/29/2020 Discharge Time: 10/29/2020 Discharge Unit: [facility] Inpatient Rehab unit Unit Length of Stay: LOS: 1 day Admission Information Admitting Physician: Barak Hebert MD Discharge Information Discharge Physician: Esperanza vAila MD Problem List Active Hospital Problems Diagnosis [...] ULTRAM Follow-up: Tess Fuentes MD [address] [facility] [address] In 1 week SANJUANITA louise 1 week Barak Hebert MD [address] [facility] [address] Call in 3 days Upcoming Appointments (up to five)-Some appointments for Medical Center outpatient clinics or diagnostic testing locations are not displayed below Provider Department Dept Phone 11/19/2020 11:00 AM Kaila Richmond [facility] Orthopedics [phone] Total coordination of discharge care taking greater that 30 minutes documented in this encounter Discharge Instructions * Discharge Instr - Activity* Esperanza Avila MD - 10/29/2020 8:19 AM EST As tolerated * Discharge Instr - Diet* Esperanza Avila MD - 10/29/2020 8:20 AM EST As tolerated * Discharge Instr - Notify* [place] RN - 10/29/2020 10:08 AM EST Contact Office ([phone]) if: > Total Knee ROM < 90 [...] Hour Product Support Hotline at Contact Office ([phone]) if: > Total Knee ROM < 90 [...] Don office is closed, you may call [phone] where you will be connected with an after hours orthopedic nurse that will be able to answer your questions. The morning after your discharge Dr. Don office will contact you to follow up with how your recovery is progressing at home. * Attachments The following attachments cannot be sent through Care Everywhere. * meloxicam (oral/injection) (Pakistani) * oxycodone (Pakistani) * acetaminophen (oral) (Pakistani) * docusate and senna (Pakistani) * multivitamins (Pakistani) * omeprazole (Pakistani) * doxycycline (oral/injection) (Pakistani) documented in this encounter Chief Complaint and Reason for Visit Chief Complaint Admit Date r06.09 e78.2 r94.31 r53.83 r00.2 March 8:21am Additional Source Comments (unrecognized sect ion and content) No Status Records FoundNo Status Records FoundNo Status Records FoundNo Status Records FoundNo Status Records FoundNo Status Records FoundNo Status Records FoundNo Status Records FoundNo Status Records Found INFORMATION SOURCE (unrecogn ized section and content) DATE CREATED AUTHOR 05/16/2018 [facility] DATE CREATED AUTHOR AUTHOR'S МАРИЯ BENNETT 05/16/2018 [facility] DATE CREATED AUTHOR AUTHOR'S ORGANIZ ATION 02/27/2019 [facility] DATE CREATED AUTHOR AUTHOR'S ORGANIZ ATION 10/30/2022 [facility] DATE CREATED AUTHOR AUTHOR'S ORGANIZ ATION 02/02/2023 [facility] DATE CREATED AUTHOR AUTHOR'S ORGANIZ ATION 06/09/2024 [facility] EPIC DATE CREATED AUTHOR AUTHOR'S ORGANIZ ATION 10/24/2024 [facility] DATE CREATED AUTHOR AUTHOR'S ORGANIZ ATION 04/03/2025 [facility] DATE CREATED AUTHOR AUTHOR'S ORGANIZ ATION 04/09/2025 [facility] Ambulatory Reason for Visit (unrecogniz ed section and content) Status Reason Specialty Diagnoses / Procedures Referred By Contact Referred To Contact Pending Review Diagnoses Left knee pain, unspecified chronicity Procedures XR BONE LENGTH STUDY Barak Hebert MD [address] [place], [place] [phone] Reason Comments Knee Pain Pain New Patient Status Reason Specialty Diagnoses / Procedures Referred By Contact Referred To Contact Closed Nuclear Medicine Diagnoses Pain in prosthetic joint, subsequent encounter Procedures NUC 3 PHASE LIMITED BONE SCAN SC BONE IMAGING, 3 PHASE Bhavana Addison APRN-CARINE [address] [place], [place] [phone] [facility] Nuclear Medicine [address] [place] [phone] Status Reason Specialty Diagnoses / Procedures Referred By Contact Referred To Contact Closed Nuclear Medicine Diagnoses Pain in prosthetic joint, initial encounter Procedures NUC WBC STUDY SC ABSCESS IMAGING, WHOLE BODY Barak Hebert MD [address] [place] [address] [facility] Nuclear Medicine [address] [place] [phone] Status Reason Specialty Diagnoses / Procedures Referre d By Contact Referred To Contact Diagnoses Mechanical loosening of internal left knee prosthetic joint, 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, 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] Procedures SC REVISE KNEE JOINT REPLACE,ALL PARTS REVISION ARTHROPLASTY KNEE Barak Hebert MD [address] [place], [place] [phone] Reason Comments Post Op Visit Status Reason Specialty Diagnoses / Procedures Referred By Contact Referred To Contact New Request Diagnoses Hx of total knee arthroplasty, left Procedures XR KNEE LEFT 3 VIEWS Kaila Richmond PA-C [address] [place], [place] [phone] Status Reason Specialty Diagnoses / Procedures Referred By Contact Referred To Contact Closed Nuclear Medicine Diagnoses Pain in prosthetic joint, initial encounter Procedures NUC BONE MARROW LIMITED AREA SC BONE MARROW IMAGING, LTD Barak Hebert MD [address] [place] [address] [facility] Nuclear Medicine [address] [place], [place] [phone] Status Reason Specialty Diagnoses / Procedures Referred By Contact Referred To Contact Auth Not Needed Nuclear Medicine Diagnoses Pain in prosthetic joint, initial encounter Procedures NUC WBC STUDY SC ABSCESS IMAGING, WHOLE BODY Barak Hebert MD [address] [place] [address] [facility] Nuclear Medicine [address] [place], [place] [phone] Status Reason Specialty Diagnoses / Procedures Referred By Contact Referred To Contact New Request Diagnoses S/P total knee arthroplasty, left Procedures XR BONE LENGTH STUDY Barak Hebert MD [address] [place], [place] [phone] Specialty Diagnoses / Procedures Referred By Contac t Referred To Contact Diagnoses Hx of total knee arthroplasty, left Procedures XR KNEE LEFT 3 VIEWS Bhavana Addison, KEY OPERATOR-CARINE [address] [place], [place] [phone] Referral ID Status Reason Start Date Expiration Date V isits Requested Visits Authorized [id number] New Request 10/22/2021 11/16/2022 1 1 Reason Comments Follow-up Reason Comments Pain Condition Update Specialty Diagnoses / Procedures Referred By Contac t Referred To Contact Diagnoses Bilateral thumb pain Procedures XR THUMB LEFT Gadiel Floyd MD [address] [place] [address] Referral ID Status Reason Start Date Expiration Date V isits Requested Visits Authorized [id number] New Request 02/11/2022 03/08/2023 1 1 Reason Comments Pain Specialty Diagnoses / Procedures Referred By Contac t Referred To Contact Orthopaedic Surgery Diagnoses Bilateral thumb pain Barak Hebert MD [address] [place] [phone] Gadiel Floyd MD [address] [place] [address] Referral ID Status Reason Start Date Expiration Date V isits Requested Visits Authorized [id number] New Request 12/17/2021 01/11/2023 1 1 Reason Comments Follow-up Follow Up- Bilat Bas al Joint Arthritis/ Last Injection: 02/17/22- Pain Scale: 2/10 Bilat Referral ID Status Reason Start Date Expiration Date V isits Requested Visits Authorized [id number] New Request 11/22/2023 12/16/2024 1 1 Reason Comments New Patient Visit Self /ref for sob on exertion Specialty Diagnoses / Procedures Referred By Contac t Referred To Contact Diagnoses Dyspnea on exertion Procedures ECG 12 Lead Adrien Foley, KEY OPERATOR-SPA EXPERIENCE COORDINATOR [address] [facility] [address], [address] [address] Phone: tel: fax: Referral ID Status Reason Start Date Expiration Date V isits Requested Visits Authorized [id number] Authorized 03/18/2025 03/18/2026 1 1 Amaris Samayoa RN - 10/28/2020 2:35 PM NIVIAWhAmaris tubbs RN - 10/28/2020 12:50 PM EST Nursing Notes (unrecognized section and content) Patient ransferred to PACU via bed with this nurse and TIRE MOLD TESTER. Bedside report given to ANOOP Law. Fire [...] determined in the discharge planning process with clinical social worker and the multidisciplinary team. Return to [facility] from PT. C/o pain 4 out of 10. Pain pill offered but Tylenol due. PT to take tylenol and save oxicodone for after lunch. Follow up phone call to [facility], who state that they can accept to start services tomorrow. Follow up call received from Suzy at [facility]. Referral for [facility] therapist, Santa to be made through [facility]. Instructed to request Santa for PT on referral. Referral sent at this time. To PT room Spoke with Suzy at [facility] regarding referral. Referring patient information, will call [...] PROCEDURE: 10/28/2020 ATTENDING PHYSICIAN: Barak Hebert M.D. PACKING MACHINE CAN FEEDER: Bhavana Addison CNP. PREOPERATIVE DIAGNOSIS: Failed left [...] FLUIDS: Adequate. SPECIMENS: Include bone. INSTRUMENTATION USED: [employer] Att[employer] size 7 left CRS femoral component [...] on the back table according to the simonizer s technique. They were then cemented into [...] to return home with his spouse and C through [facility], which he has used in the past. Per nursing, his incision is closed with elizabeth, [facility]HC to remove, will request 3 week follow up appointment. Patient denies any other needs at this time. Phone call to [facility] to discuss referral, message left. Follow up appointment requested. Social work and PT notified that pt is back in bay [facility]. POST OPERATIVE/PROCEDURE NOTE López Cortés ([id number]) SURGEON Surgeon(s) and Role: * Barak Hebert MD - Primary PACKING MACHINE CAN FEEDER MARK Richardson ANESTHESIOLOGIST TIRE MOLD TESTER: Yusef Escobedo CRNA SURGICAL STAFF Process Excellence Manager: Kerry Richter RN Nurse Practitioner: MARK Richardson Scrub Person: Andrew Moffett RN; Alyx Miller; Martha Rolon RN Mail Truck Driver Appraiser [employer]: Escobar Rodriguez Core Sucker: Efrem Bonner LPN PROCEDURE PERFORMED Procedure(s) (LRB): [...] Barak Hebert MD 10/28/2020 1301 Bhavana Addison, KEY OPERATOR-SPA EXPERIENCE COORDINATOR October 28, 2020 2:39 PM CM met with patient this date to discuss post-surgical discharge plans. Patient states that he plans to return home with his spouse and C after discharge for a left knee revision. He states that lives in [place] and would like to utilize [facility] in that area. He states that he has a wheeled walker and will bring it with him on the day of surgery. CM to continue to follow and assist with discharge plans. 10/02/20 0928 Information Source Information Source patient Contact Information Technician Assistant Name Sun Lopez RN Case Manager's Living [...] Care Teams (unrecognized sec tion and content) Garbage Pick Up Worker Relationship Specialty Start Date End Date Tess Fuentes MD [address] [place] [address] PCP - General Family Medicine 09/11/20 Garbage Pick Up Worker Relationship Specialty Start Date End Date Tess Fuentes MD [address] [place], [place] [address], [place] [address] PCP - General Family Medicine 09/11/20 Garbage Pick Up Worker Relationship Specialty Start Date End Date Tess Fuentes MD [address] [place] [address] PCP - General Family Medicine 09/11/20 Garbage Pick Up Worker Relationship Specialty Start Date End Date Tess Fuentes MD [address] [place] [address] PCP - General Family Medicine 09/11/20 Garbage Pick Up Worker Relationship Specialty Start Date End Date Tess Fuentes MD [address] [place] [address] PCP - General Family Medicine 09/11/20 Garbage Pick Up Worker Relationship Specialty Start Date End Date Tess Fuentes MD [address] [place] [address] PCP - General Family Medicine 09/11/20 Garbage Pick Up Worker Relationship Specialty Start Date End Date Tess Fuentes MD [address] [place] [address] PCP - General Family Medicine 09/11/20 Garbage Pick Up Worker Relationship Specialty Start Date End Date Tess Fuentes MD [address] [place] [address] PCP - General Family Medicine 09/11/20 Garbage Pick Up Worker Relationship Specialty Start Date End Date Tess Fuentes MD [address] [place] [address] PCP - General Family Medicine 09/11/20 Garbage Pick Up Worker Relationship Specialty Start Date End Date Tess Fuentes MD [address] [place] [address] PCP - General Family Medicine 09/11/20 Team Status: Inactive Member Role Status Dates Obey Alas MD FACS Attending Provider Active Start: February 28, 2024 End: February 28, 2024 Team Status: Inactive Member Role Status Dates Obey Alas MD FACS Attending Provider Active Start: August 29, 2024 End: August 29, 2024 Garbage Pick Up Worker Relationship Specialty Start Date End Date Tess Fuentes MD [address] [place] [address] PCP - General Family Medicine 03/14/25 Team Status: Active Member Role Status Dates Tess Fuentes MD Primary Care Provider Active Team Status: Inactive Member Role Status Dates Tess Fuentes MD Primary Care Provider Active Start: March 26, 2025 End: March 26, 2025 Adrien Foley APRN Attending Provider Active S tart: March 26, 2025 End: March 26, 2025 Goals (unrecognized section and content) Goals may be documented in a n alternate section FOR RECORDS PERTAINING TO PATIENTS WHO ARE [...] BE BASED ON THE PRIMARY CLINICAL RECORDS. [employer] [facility]. provides no warranty or guarantee of the accuracy or completeness of information in this document.
[2025-04-17 07:16] LABS: Basophils Absolute Auto 0.1 10^3/uL (0.0-0.1); Basophils Percent Auto 0.8 % (0.2-2.0); Eosinophils Absolute Auto 0.3 10^3/uL (0.0-0.7); Hematocrit 46.2 % (42.0-54.0); Hemoglobin 15.4 g/dL (14.0-18.0); Immature Granulocytes Abs Auto 0.02 10^3/uL (0.00-0.03); Immature Granulocytes Pct Auto 0.3 % (0.0-0.5); Lymphocytes Absolute Auto 1.3 10^3/uL (1.2-3.8); Lymphocytes Percent Auto 19.4 % (20.5-60.0); Mean Corpuscular HGB Conc 33.3 g/dL (29.9-35.2); Mean Corpuscular Hemoglobin 31.4 pg (25.9-34.0); Mean Corpuscular Volume 94.1 fL (80.0-94.0); Mean Platelet Volume 9.9 fL (9.5-13.5); Monocytes Absolute Auto 0.9 10^3/uL (0.3-0.8); Monocytes Percent Auto 13.6 % (1.7-12.0); Neutrophils Absolute Auto 4.1 10^3/uL (1.4-6.5); Neutrophils Percent Auto 61.9 % (43.0-75.0); Platelet Count 200 10^3/uL (150-450); Red Blood Count 4.91 10^6/uL (4.70-6.10); Red Cell Distribution Width 13.5 % (11.0-15.0); White Blood Count 6.6 10^3/uL (4.0-11.0)
[2025-04-17 07:27] LABS: Estimated Average Glucose 117 mg/dL; Glycohemoglobin A1C 5.7 % (4.5-6.2)
[2025-04-17 08:02] LABS: Alanine Aminotransferase 36 U/L (16-63); Albumin Level 3.5 g/dL (3.4-5.0); Alkaline Phosphatase 123 U/L (46-116); Anion Gap 12.3; Aspartate Amino Transferase 33 U/L (15-37); BUN Creatinine Ratio 12.9; Bilirubin Total 1.8 mg/dL (0.2-1.0); Calcium 8.9 mg/dL (8.5-10.1); Carbon Dioxide 29.4 mmol/L (21.0-32.0); Chloride 105 mmol/L (98-107); Chol HDL Ratio 2.6; Cholesterol 113 mg/dL (<=200); Estimated GFR (African America 53 (>=60 mL/min/1.73m^2); Estimated GFR (Non-African Ame 44 (>=60 mL/min/1.73m^2); Free T3 2.52 pg/mL (2.18-3.98); Globulin 3.6 g/dL; Glucose 103 mg/dL (74-106); HDL Cholesterol 44 mg/dL (40-60); LDL Cholesterol Calculated 54.2 mg/dL; Potassium 4.7 mmol/L (3.5-5.1); Sodium 142 mmol/L (136-145); Thyroid Stimulating Hormone 0.805 uIU/mL (0.358-3.740); Total Protein 7.1 g/dL (6.4-8.2); Triglycerides 74 mg/dL (<=150); VLDL CHOLESTEROL 14.8 mg/dL
[2025-04-18 13:43] LABS: Internal Control Within Normal Limits; Occult Blood Positive
== END 2025-04-17 06:58 | disposition home or self-care (01) ==
LOC: LAB 06:59
PROVIDERS: PCP Family Medicine; Visit Provider Family Medicine
DX: I12.9 Hypertensive chronic kidney disease with stage 1 through stage 4 chronic kidney disease, or unspecified chronic kidney disease (principal); N18.2 Chronic kidney disease, stage 2 (mild); E78.00 Pure hypercholesterolemia, unspecified; G62.9 Polyneuropathy, unspecified
CPT/HCPCS: 36415; 80053; 80061; 83036; 84436; 84443; 84481; 85025; G0328

== ENCOUNTER 2025-05-04 08:35 | Outpatient (OUT) | payer MEDICARE, SELFPAY ==
--- OUTSIDE RECORDS SUMMARY | 2025-05-04 08:39 | XMS_ITS | CCD ---
Author Organization [facility] Care Team Providers Care Barrel Tester And Drainer Name Role Phone PHYSICIAN, DEFAULT Unavailable Unavailable [...] Provider Tess Fuentes MD Primary Care Provider [phone] BARAK HEBERT Referring Unavailable HOY, TESS M Primary Care Unavailable GADIEL FLOYD Attending Unavailable ELIZABETHY, TESS M Primary Care Unavailable GADIEL FLOYD Referring Unavailable FLOYDGADIEL Attending Unavailable HOY, TESS M Primary Care Unavailable GADIEL FLOYD Attending Unavailable GADIEL FLOYD Referring Unavailable HOY, TESS M Primary Care Unavailable GADIEL FLOYD Attending Unavailable GADIEL FLOYD Referring Unavailable BARAK HEBERT Referring Unavailable ELIZABETHY, TESS M Primary Care Unavailable BARAK HEBERT Attending Unavailable ALFREDO, TESS M Primary Care Unavailable BARAK HEBERT Referring Unavailable BARAK HEBERT Attending Unavailable BHAVANA ADDISON Attending Unavailable BHAVANA ADDISON Referring Unavailable ELIZABETHY, TESS M Primary Care Unavailable BARAK HEBERT Referring Unavailable ALFREDO, TESS M Primary Care Unavailable BARAK HEBERT Attending Unavailable Tess Fuentes Primary Care Physician ALFREDO Núñez, DR PULIDO Attending Unavailable ALFREDO ., DR PULIDO Consulting Unavailable ALFREDO ., DR PULIDO Primary Care Unavailable ALFREDO ., DR PULIDO Admitting Unavailable RJ LEON Consulting Unavailable HOY ., DR PULIDO Admitting [...] Unavailable Tess Fuentes MD Primary Care Provider [phone] MD Obey Alas Attending Provider SOLOMON IGNACIO Attending Unavailable MD Obey Alas Attending Provider [phone] Tess Fuentes MD Primary Care Provider [phone] Tess Fuentes MD Primary Care Provider [phone] Adrien Foley APRN Attending Provider [phone] Barbara Galdamez DO Referring Provider ADRIEN FOLEY Attending Unavailable TESS FUENTES Primary [facility] Unavailable ADRIEN FOLEY Referring Unavailable TESS FUENTES Primary Care Unavailable Nill, Obey R Attending Unavailable Nill, Obey R Admitting Unavailable Adrien Foley Admitting Unavailable Tess Fuentes Primary Care Unavailable Barbara Galdamez Referring Unavailable Adrien Foley Attending Unavailable Tess Fuentes Primary Care Unavailable Adrien Foley Attending Unavailable Adrien Foley Admitting Unavailable NILL, Obey R Attending Unavailable NILL, Obey R Attending Unavailable NILL, Obey R Attending Unavailable NILL, Obey R Attending Unavailable NILL, Obey R Attending Unavailable NILL, Obey R Attending Unavailable NILL, Obey R Attending Unavailable Allergies Allergy Classification Reported Allergen(s) Allergy Type Date of Onset Reaction(s) Facility (5 sources) Sulfonamides (Antibiotic); Translations: [SULFA (SULFONAMIDE ANTIBIOTICS)] Propensity to adverse reactions to drug (disorder) 7 Unknown [facility] (19 sources) Penicillins Propensity to adverse reactions to drug 0 [employer] [facility] (19 sources) Sulfonamides (Antibiotic) Propensity to adverse reactions to drug 0 [facility] (4 sources) Penicillin; Translations: [penicillin] Drug Allergy Cutaneous eruption (morphologic abnormality) General Surgery [facility] (9 sources) Sulfamethoxazole ; Translations: [sulfamethoxazol e] Drug Allergy Unknown (qualifier value) [facility] (1 source) Sulfonamides (Antibiotic) Drug allergy (disorder) 1 [facility] (2 sources) Penicillins Propensity to adverse reactions to drug [facility] (2 sources) Sulfonamides (Antibiotic) Propensity to adverse reactions to drug 0 [facility] Medications Current Medications Medication Drug Class(es) Dates [...] 1,000 mg amLODIPine 2.5 mg oral tablet (2 sources) Dihydropyridine Calcium Channel Loretta Start: 02-21-2025 take [...] procedure 8 capsule 1 11/19/2020 11/19/2021 Active dabigatran etexilate 150 mg oral capsule (1 source) Start: 04-09-2025 End: 04-09-2026 take 1 capsule by mouth twice daily dabigatran etexilate (Pradaxa) 150 mg capsule Indications: Paroxysmal atrial fibrillation (Multi) Take 1 capsule (150 mg) by mouth 2 times a day. Do not crush or chew. 180 capsule 3 04/09/2025 04/09/2026 Active 1 ml dexamethasone phosphate 4 mg/ml [...] days. 14 capsule 0 10/28/2020 11/04/2020 Active flecainide acetate 50 mg oral tablet (1 source) Antiarrhythmic Start: 05-02-2025 End: 05-02-2026 take 1 tablet by mouth twice daily flecainide (Tambocor) 50 mg tablet Indications: Paroxysmal atrial fibrillation (Multi) Take 1 tablet (50 mg) by mouth 2 times a day. 180 tablet 3 05/02/2025 05/02/2026 Active gabapentin 300 mg oral capsule (2 sources) Anti-epileptic Agent End: 05-02-2025 take 1 capsule by mouth once daily gabapentin (Neurontin) 300 mg capsule Take 1 capsule (300 mg) by mouth once daily. 05/02/2025 Discontinued (Therapy completed) irbesartan 300 mg oral tablet (9 sources) Angiotensin 2 Receptor Loretta Start: 01-31-2024 take 1 tablet by mouth once daily irbesartan 300 mg Tab 300 mg = 1 tab(s), Oral, Daily, Refills(s) 0 Start Date: 01/31/24 Status: Ordered take 1 tablet by mouth once emilia y irbesartan (Avapro) 150 mg tablet Take 1 tablet (150 mg) by mouth once daily. Active lisinopril 10 mg oral tablet (5 sources) [...] mouth daily. 30 tablet 0 11/19/2020 Active 24 hr metoprolol succinate 25 mg extended release oral tablet (1 source) beta-Adrenergic Loretta Start: 04-16-2025 End: 04-16-2026 take 1 tablet by mouth once daily metoprolol succinate XL (Toprol-XL) 25 mg 24 hr tablet Indications: Paroxysmal A-fib (Multi) Take 1 tablet (25 mg) by mouth once daily. Do not crush or chew. 90 tablet 3 04/16/2025 04/16/2026 Active Multiple Vitamin (multivitamin) capsule (13 sources) [...] # 90 tab(s), Refills(s) 3, Pharmacy: [facility]/pharmacy #[id number] Start Date: 07/18/19 Status: Ordered pregabalin 76 [...] sex, # 30 tab(s), Refills(s) 5, Pharmacy: [id number], 172, cm, 01/12/22 11:29:00 EST, Height/Length Dosing, 95, kg, 01/12/22 11:29:00 EST, Weight Dosing Start Date: 01/12/22 Status: Ordered tamsulosin hydrochloride 0.4 mg oral capsule (2 sources) alpha-Adrenergic Loretta take 1 capsule by mouth [...] mg docusate sodium 50 mg / sennosides, fpc 8.6 mg oral tablet (1 source) Start: [...] Status: Ordered take 2 tablets by mo [facility] once daily pravastatin 20 MG tablet Take [...] Problem Classification Problem Date Documented Date Episodic/Chronic Administrative/social admission (2 sources) Patient encounter status; Translations: [Person consulting for explanation of examination or test findings] Onset: 05-02-2025 05-02-2025 Episodic Cardiac dysrhythmias (4 sources) Paroxysmal atrial fibrillation; Translations: [Paroxysmal atrial fibrillation] Onset: 05-02-2025 05-02-2025 Chronic Cardiac dysrhythmias (8 sources) Palpitations; Translations: [Palpitations] Onset: 03-18-2025 03-18-2025 [...] Onset: 02-01-2023 Episodic Disorders of lipid metabolism (16 sources) Hypercholesterolemia; Translations: [Hyperlipidemia, unspecified] Onset: 02-01-2023 09-29-2020 Chronic Esophageal disorders (16 sources) Terrazas's esophagus; Translations: [Gastroesophageal reflux disease] 09-29-2020 Chronic Essential hypertension (15 sources) Hypertensive disorder; Translations: [Essential (primary) hypertension] [...] FAIL] Onset: 04-15-2022 Chronic Malaise and fatigue (5 sources) Fatigue; Translations: [Other fatigue] Onset: 03-18-2025 [...] first carpometacarpal joint, left hand] Chronic Other aftercare (2 sources) Taking high risk medication; Translations: [Other fdc (current) drug therapy] Onset: 05-02-2025 05-02-2025 Episodic Other connective tissue disease (2 sources) History [...] dyspnea] 03-18-2025 Episodic Other lower respiratory disease (2 sources) Dyspnea; Translations: [Dyspnea, unspecified] Onset: 03-18-2025 03-18-2025 Episodic Other lower respiratory disease (3 sources) Other forms of dyspnea; Translations: [Other [...] Chronic Other nutritional; endocrine; and metabolic disorders (12 sources) Body mass index 30+ - obesity; [...] conditions (not mental disorders or infectious disease) (8 sources) Encounter for screening for malignant neoplasm of prostate; Translations: [Encounter for screening for malignant neoplasm of rectum] Onset: 04-15-2022 03-18-2025 Episodic Residual codes; unclassified (8 sources) Foreign body 04-27-2019 Episodic Residual codes; unclassified (6 sources) Insomnia 01-26-2024 Episodic Screening and history of mental health and substance abuse codes (2 sources) Ex-smoker; Translations: [Personal history of nicotine dependence] Onset: 05-02-2025 05-02-2025 Episodic Skin and subcutaneous tissue infections (8 [...] Pain; Translations: [Pain] Onset: 12-17-2021 Episodic Unclassified (2 sources) Onset: 03-18-2025 Resolved: 05-02-2025 03-18-2025 Results Test Name Value Interpretation Reference Range Facility NM katya perf SPECT rest stron 04-19-2025 NM katya perf SPECT rest [facility] [place] [address] Nuclear Medicine Report Signed Patient: López Cortés MR#: [id number] : 1950 Acct:[id number] Age/Sex: 75 / M ADM Date: 04/18/25 Loc: Room: Type: [facility] Attending Dr: Adrien Foley ELECTRONIC SECURITY SPECIALIST Copies to: GLORIA Domínguez MD Ordering Provider: Adrien Foley APRN Date of Service: 04/18/25 NM/NM katya perf SPECT rest str: SOB NUCLEAR MYOCARDIAL PERFUSION DATE OF PROCEDURE: 04/09/2025 ATTENDING MOBILE MECHANIC: Dr. Epi Paredes REQUESTING PHYSICIAN: Steffanie Foley PROCEDURE: The patient received a stress dose of Lexiscan and was then injected with 27.9 millicuries of Technetium 99M Sestamibi. For rest images the patient was injected with 29.6 millicuries of Technetium 99M Sestamibi. FINDINGS: The raw cine images were reviewed. The post stress and rest perfusion images were reviewed as well as the computer quantification.? There was uniform uptake of the radiotracer with no perfusion defects identified.? On the gated portion of the study, the overall ejection fraction calculated at 57%.?Uniform thickening indicative of normal wall motion. TID score 1.14 is within normal limits. NM/NM katya perf SPECT rest str IMPRESSION: 1. Normal SPECT Sestamibi myocardial perfusion. No ischemia or infarction. 2. Normal wall motion. 3. Normal left ventricular systolic function. LVEF is 57%.? Impression dictated by: Epi Paredes M.D. 04/19/2025 1:23 PM Dictation Location: [place] [address] Transcribed By: [facility] 04/19/25 1323 Dictated By: Epi Paredes MD 04/19/25 1322 Signed By: 04/19/25 1323 Normal [facility] Alanine Aminotransferaseon 0 04-18-2025 ALT [Catalytic activity/Vol] 27 U/L Normal 7-52 [facility] Comment on above: Order Comment: DAVID ENGEL Y Performed By: #### C BC, ALT, LIPID, AST #### [address] [place] [address] [place] Alanine aminotransferase [En zymatic activity/volume] in Serum or PlasmaOrdered By: Adrien Foley on 04-18-2025 ALT [Catalytic activity/Vol] Alanine aminotransferase [Enzymatic activity/volume] in Serum or Plasma 7-52 [facility] Aspartate Amino Transferaseo n 04-18-2025 AST [Catalytic activity/Vol] 30 U/L Normal 13-39 [facility] Comment on above: Order Comment: DAVID ENGEL Y Performed By: #### C BC, ALT, LIPID, AST #### [facility] [address] [place] [address] [facility] Aspartate aminotransferase [ Enzymatic activity/volume] in Serum or PlasmaOrdered By: Adrien Foley on 04-18-2025 AST [Catalytic activity/Vol] Aspartate aminotransferase [Enzymatic activity/volume] in Serum or Plasma 13-39 [facility] Basophils Auto (Bld) [#/Vol] Ordered By: Adrien Foley on 04-18-2025 Basophils (Bld) [#/Vol] Automated basophil count 0.0-0.2 [facility] Basophils/100 WBC Auto (Bld) Ordered By: Adrien Foley on 04-18-2025 Basophils/100 WBC (Bld) Automated basophil % . [facility] Cholesterol [Mass/volume] in Serum or PlasmaOrdered By: Adrien Foley on 04-18-2025 Cholesterol [Mass/Vol] Cholesterol [Mass /volume] in Serum or Plasma Low 140-200 [facility] Comment on above: Chol less than 200 m g/dl low riskChol 201-239 mg/dl borderline riskChol 240 mg/dl and greater high risk Cholesterol in HDL [Mass/vol ume] in Serum or PlasmaOrdered By: Adrien Foley on 04-18-2025 Cholesterol in HDL [Mass/Vol] Serum or plasma high density lipoprotein (HDL) cholesterol measurement [facility] Comment on above: HDL CHOL ATP-III CLA SSIFICATION Cardiovascular RiskHDL > or equal to 60 mg/dL LOWHDL < 40 mg/dL HIGH Cholesterol in LDL Calc [Mas s/Vol]Ordered By: Adrien Foley on 04-18-2025 Cholesterol in LDL [Mass/Vol] Cholesterol in LDL [Mass/volume] in Serum or Plasma by calculation 0-100 [facility] Comment on above: LDL ATP III CLASSIFI CATIONLDL less than 100 mg/dL OptimalLDL 100-129 mg/dL Near or above optimalLDL 130-159 mg/dL Borderline highLDL 160-189 mg/dL HighLDL greater than 189 mg/dL Very high Cholesterol in VLDL Calc [Ma ss/Vol]Ordered By: Adrien Foley on 04-18-2025 Cholesterol in VLDL [Mass/Vol] Cholesterol in VLDL [Mass/volume] in Serum or Plasma by calculation [facility] Complete Blood Count Auto Di ffon 04-18-2025 Basophils (Bld) [#/Vol] 0.1 10*3/uL Normal 0.0-0.2 [facility] Comment on above: Result Comment: PERF ORMED BY: [place] [address] PATHOLOGIST INTERNET RETAILER AMBROSE OLSON M.D. Performed By: #### C BC, ALT, LIPID, AST #### [address] Basophils/100 WBC (Bld) 0.7 % Normal . [facility] Comment on above: Performed By: #### C BC, ALT, LIPID, AST #### [address] Eosinophils (Bld) [#/Vol] 0.2 10*3/uL Normal 0.0-0.45 [facility] Comment on above: Performed By: #### C BC, ALT, LIPID, AST #### [address] Eosinophils/100 WBC (Bld) 2.6 % Normal . [facility] Comment on above: Performed By: #### C BC, ALT, LIPID, AST #### [address] Erythrocyte distribution width (RBC) [Ratio] 14.0 % Normal 12.0-14.8 [facility] Comment on above: Performed By: #### C BC, ALT, LIPID, AST #### [address] Hematocrit (Bld) [Volume fraction] 48.5 % Normal 38.8-50.0 [facility] Comment on above: Performed By: #### C BC, ALT, LIPID, AST #### [address] Hemoglobin (Bld) [Mass/Vol] 16.5 g/dL Normal 13.0-17.0 [facility] Comment on above: Performed By: #### C BC, ALT, LIPID, AST #### [address] Lymphocytes (Bld) [#/Vol] 1.3 10*3/uL Normal 1.00-4.8 [facility] Comment on above: Performed By: #### C BC, ALT, LIPID, AST #### [address] Lymphocytes/100 WBC (Bld) 17.0 % Normal . [facility] Comment on above: Performed By: #### C BC, ALT, LIPID, AST #### [address] MCH (RBC) [Entitic mass] 32.0 pg Normal 27.5-35.2 [facility] Comment on above: Performed By: #### C BC, ALT, LIPID, AST #### [address] MCV (RBC) [Entitic vol] 94.3 fL Normal 83.5-101 [facility] Comment on above: Performed By: #### C BC, ALT, LIPID, AST #### [address] Mean Corpuscular HGB Conc 33.9 g/dL Normal 32.5-35.6 [facility] Comment on above: Performed By: #### C BC, ALT, LIPID, AST #### [address] Monocytes (Bld) [#/Vol] 0.9 10*3/uL High 0.0-0.8 [facility] Comment on above: Performed By: #### C BC, ALT, LIPID, AST #### [place] [address] [place] Monocytes/100 WBC (Bld) 11.6 % Normal . [facility] Comment on above: Performed By: #### C BC, ALT, LIPID, AST #### [address] Neutrophils (Bld) [#/Vol] 5.0 10*3/uL Normal 1.8-7.7 [facility] Comment on above: Performed By: #### C BC, ALT, LIPID, AST #### [address] Neutrophils/100 WBC (Bld) 68.1 % Normal . [facility] Comment on above: Performed By: #### C BC, ALT, LIPID, AST #### [address] NRBC% 0.1 /100{WBC} Normal 0-0.5 [facility] Comment on above: Performed By: #### C BC, ALT, LIPID, AST #### [address] Platelet mean volume (Bld) [Entitic vol] 9.0 fL Normal 6.6-10.1 [facility] Comment on above: Performed By: #### C BC, ALT, LIPID, AST #### [place] [address] [place] Platelets (Bld) [#/Vol] 213 10*3/uL Normal 150-450 [facility] Comment on above: Performed By: #### C BC, ALT, LIPID, AST #### [place] [address] [place] RBC (Bld) [#/Vol] 5.15 10*6/uL Normal 3.90-5.60 [facility] Comment on above: Performed By: #### C BC, ALT, LIPID, AST #### [place] [address] [place] WBC (Bld) [#/Vol] 7.4 10*3/uL Normal 4.1-10.5 [facility] Comment on above: Performed By: #### C BC, ALT, LIPID, AST #### [facility] [address] [place] [address] [facility] echo transthoracicon ECH echo transthoracic [facility] [address] [place] [address] Echocardiogram Signed Patient: óLpez Cortés MR#: [id number] : 1950 Acct:[id number] Age/Sex: 75 / M ADM Date: 04/18/25 Loc: Room: Type: [facility] Attending Dr: Adrien Foley APRN Ordering Provider: Adrien Foley APRN Date of Service: 04/18/25/ ECH/ECH echo transthoracic: Dyspnea. Palpitations. Abnormal EKG. HTN. Copies to: GLORIA Domínguez MD P 10:19 AM Patient Location: : 1950 Gender: Male (MM/DD/YYYY) Age: 75 Years Ordering Physician: Adrien Foley Height: 67.72 in Referring Physician: Barbara Galdamez Weight: 229.003 lb Performed By: Jennifer Laguerre LIGIA BSA: 2.16 m2 BP: 132 / 82 mmHg HR: 58 bpm Reason For Study: Dyspnea. Palpitations. Abnormal EKG. HTN. History: HTN. HLD. Afib. Former Smoker. + + Interpretation Summary Ejection Fraction = 60-65%. Mild concentric left ventricular hypertrophy. The left ventricular wall motion is normal. A variety of Doppler measurements indicate normal left ventricular diastolic function. There is no comparison study available. Procedure/Quality: A two-dimensional transthoracic echocardiogram with color flow, Doppler and injection of contrast agent Definity was performed. The study was technically suboptimal in quality due to poor acoustic windows . Left Ventricle: The left ventricular size is normal. Mild concentric left ventricular hypertrophy. Ejection Fraction = 60-65%. A variety of Doppler measurements indicate normal left ventricular diastolic function. The left ventricular wall motion is normal. Left Atrium: The left atrium appears normal in size. Right Atrium: The right atrium appears normal in size. Right Ventricle: The right ventricle is normal in size and function. Aortic Valve: The aortic valve is mildly calcified. No hemodynamically significant valvular aortic stenosis. No aortic regurgitation is present. Mitral Valve: The mitral valve is normal in structure. No significant mitral valve stenosis. There is no mitral regurgitation noted. Tricuspid Valve: The tricuspid valve is normal in structure. No tricuspid regurgitation. Pulmonic Valve: The pulmonic valve is not well visualized. No significant pulmonic regurgitation. Arteries: The aortic root is normal size. Pericardium/Pleura: No pericardial effusion seen. IVC/Hepatic Veins: The inferior vena cava was not visualized during the exam. MMode/2D Measurements Calculations IVSd (0.7-1.1 cm): 0.98 cm LVIDd (3.7-5.4 cm): 4.9 cm LVPWd (0.7-1.1 cm): 1.13 cm LVIDs (2.3-3.6 cm): 3.5 cm LA dimension (2.3-4.0 cm): 3.7 Ao root diam (2.0-3.2 cm): 3.2 cm cm FS: 27.8 % Ao root area: 8.1 cm2 EDV(Teich): 110.5 ml LVOT diam: 2.03 cm ESV(Teich): 51.1 ml LVOT area: 3.2 cm2 EF(Teich): 53.7 % LAV(MOD-sp2): 47.0 ml LAV(MOD-sp4): 35.5 ml LA A2 area: 19.1 cm2 LA A4 area: 16.8 cm2 LA length (vol): 6.3 cm LA vol: 43.4 ml LA vol index: 20.1 ml/m2 Doppler Measurements Calculations MV E max jenny: 68.4 cm/sec Ao V2 max: 144.0 cm/sec MV A max jenny: 97.0 cm/sec Ao max P.3 mmHg MR max jenny: 389.3 cm/sec Ao mean P.0 mmHg MV V2 VTI: 39.6 cm Ao V2 mean: 95.0 cm/sec MV dec time: 0.24 sec Ao V2 VTI: 32.1 cm E/E' lat: 9.4 MELODIE(I,D): 2.47 cm2 E/E' med: 12.6 MELODIE(V,D): 2.50 cm2 TV max P.0 mmHg LV V1 max: 111.0 cm/sec TR max jenny: 215.8 cm/sec LV V1 max P.9 mmHg TR max P.6 mmHg LV V1 mean: 70.0 cm/sec RAP systole: 3.0 mmHg LV V1 mean P.00 mmHg LV V1 VTI: 24.5 cm + + + + + + + : Electronically : : signed by: Epi : : : : Lena : : : : on: 04/18/2025, : : : : 6:41 PM : + + + Transcribed By: JESSA Performed At: 04/18/25 1019 Signed By: Epi Paredes MD 04/18/25 1841 Normal [facility] Eosinophils Auto (Bld) [#/Vo l]Ordered By: Adrien Foley on 04-18-2025 Eosinophils (Bld) [#/Vol] Automated eosinophil count 0.0-0.45 [facility] Eosinophils/100 WBC Auto (Bl d)Ordered By: Adrien Foley on 04-18-2025 Eosinophils/100 WBC (Bld) Automated eosinophil % . [facility] Erythrocyte distribution wid th Auto (RBC) [Ratio]Ordered By: Adrien Foley on 04-18-2025 Erythrocyte distribution width (RBC) [Ratio] Erythrocyte distribution width [Ratio] by Automated count 12.0-14.8 [facility] Hematocrit Auto (Bld) [Volum e fraction]Ordered By: Adrien Foley on 04-18-2025 Hematocrit (Bld) [Volume fraction] Hematocrit [Volume Fraction] of Blood by Automated count 38.8-50.0 [facility] Hemoglobin [Mass/volume] in BloodOrdered By: Adrien Foley on 04-18-2025 Hemoglobin (Bld) [Mass/Vol] Hemoglobin [Mass/volume] in Blood 13.0-17.0 [facility] Leukocytes [#/volume] correc zackary for nucleated erythrocytes in Blood by Automated counOrdered By: Adrien Foley on 04-18-2025 WBC corrected for nucl RBC Auto (Bld) [#/Vol] Leukocytes [#/volume] corrected for nucleated erythrocytes in Blood by Automated coun 4.1-10.5 [facility] Lipid Panelon 04-18-2025 Cholesterol [Mass/Vol] 127 mg/dL Low 140-200 [facility] Comment on above: Order Comment: DAVID Mendez Result Comment: Chol less than 200 mg/dl low risk Chol 201-239 mg/dl borderline risk Chol 240 mg/dl and greater high risk Performed By: #### C BC, ALT, LIPID, AST #### [facility] [address] Cholesterol in HDL [Mass/Vol] 42 mg/dL Normal 23-92 [facility] Comment on above: Order Comment: DAVID Mendez Result Comment: HDL CHOL ATP-III CLASSIFICATION Cardiovascular Risk HDL > or equal to 60 mg/dL LOW HDL < 40 mg/dL HIGH Performed By: #### C BC, ALT, LIPID, AST #### [address] Cholesterol.total/Chol esterol in HDL [Mass ratio] 3.0 {ratio} Normal <5.0 [facility] Comment on above: Order Comment: DAVID Mendez Result Comment: PERF ORMED BY: [place] [address] PATHOLOGIST INTERNET RETAILER AMBROSE OLSON M.D. Performed By: #### C BC, ALT, LIPID, AST #### [address] LDL Cholesterol,Calculated 67 mg/dL Normal 0-100 [facility] Comment on above: Order Comment: DAVID Mendez Result Comment: LDL ATP III CLASSIFICATION LDL less than 100 mg/dL Optimal LDL 100-129 mg/dL Near or above optimal LDL 130-159 mg/dL Borderline high LDL 160-189 mg/dL High LDL greater than 189 mg/dL Very high Performed By: #### C BC, ALT, LIPID, AST #### [address] Triglyceride w/Reflex 89 mg/dL Normal 0-149 [facility] Comment on above: Order Comment: DAVID Mendez Result Comment: TRIG ATP III CLASSIFICATION TRIG less than 150 mg/dL Normal TRIG 150-199 mg/dL Borderline high TRIG 200-500 mg/dL High TRIG greater than 500 mg/dL Very high Standard traceable to the Center for Disease Conrtrol and Prevention (CDC) test method. Performed By: #### C BC, ALT, LIPID, AST #### [address] VLDL CHOLESTEROL 17 mg/dL Normal [facility] Comment on above: Order Comment: DAVID Mendez Performed By: #### C BC, ALT, LIPID, AST #### [address] Lymphocytes Auto (Bld) [#/Vo l]Ordered By: Adrien Foley on 04-18-2025 Lymphocytes (Bld) [#/Vol] Lymphocytes [#/volume] in Blood by Automated count 1.00-4.8 [facility] Lymphocytes/100 WBC Auto (Bl d)Ordered By: Adrien Foley on 04-18-2025 Lymphocytes/100 WBC (Bld) Lymphocytes/100 leukocytes in Blood by Automated count . [facility] MCH Auto (RBC) [Entitic mass ]Ordered By: Adrien Foley on 04-18-2025 MCH (RBC) [Entitic mass] MCH [Entitic mass] by Automated count 27.5-35.2 [facility] MCHC Auto (RBC) [Mass/Vol]Or dered By: Adrien Foley on 04-18-2025 MCHC (RBC) [Mass/Vol] MCHC [Mass/volume] by Automated count 32.5-35.6 [facility] MCV Auto (RBC) [Entitic vol] Ordered By: Adrien Foley on 04-18-2025 MCV (RBC) [Entitic vol] MCV [Entitic volume] by Automated count 83.5-101 [facility] Monocytes Auto (Bld) [#/Vol] Ordered By: Adrien Foley on 04-18-2025 Monocytes (Bld) [#/Vol] Automated blood monocyte count High 0.0-0.8 [facility] Monocytes/100 WBC Auto (Bld) Ordered By: Adrien Foley on 04-18-2025 Monocytes/100 WBC (Bld) Automated monocyte % . [facility] Neutrophils Auto (Bld) [#/Vo l]Ordered By: Adrien Foley on 04-18-2025 Neutrophils (Bld) [#/Vol] Neutrophils [#/volume] in Blood by Automated count 1.8-7.7 [facility] Neutrophils/100 WBC Auto (Bl d)Ordered By: Adrien Foley on 04-18-2025 Neutrophils/100 WBC (Bld) Automated neutrophil % . [facility] No Panel InformationOrdered By: Epi Paredes on 04-18-2025 [facility] [place] [address] Cardiac Stress Test Signed Patient: SuadLópez P MR#: [id number] : 1950 Date of Service:0 04/18/25 Age/Sex: 75 / M ADM Date: 5 Loc: Room: Type: [facility] Attending Dr: Adrien Foley APRN Copies to: GLORIA Domínguez MD George Augustine Koromia, MD~ ORDERING PHYSICIAN: Steffanie Foley INDICATION FOR STUDY/DIAGNOSIS: Dyspnea on exersion PROCEDURE: LEXISCAN CARDIOLITE STRESS TEST After informed consent was obtained, the patient received a stress dose of Lexiscan while undergoing continuous 12 lead ECG monitoring. The patient's physical exam prior to administration of Lexiscan was normal. No changes occurred following the administration of Lexiscan. The baseline heart rate was 58 bpm and jeimy to a maximum of 86 bpm. The baseline blood pressure was 132/82 and jeimy to a maximum of 132/82. The patient had no chest pain following the administration of Lexiscan.? The baseline ECG revealed sinus rhythm, 60 bpm, no ST-T abnormalities. Following administration of Lexiscan, there were no ST-T changes suggestive of ischemia. CONCLUSION: 1. Non-diagnostic Lexiscan ECG study. 2. Nuclear myocardial perfusion report to follow under a separate cover. Transcribed By: kaity 04/18/25 152 Dictated By: Epi Paredes MD 04/18/25 1527 Signed By: 04/18/[address] [facility] Work Phone: Nucleated erythrocytes [Pres ence] in Blood by Automated countOrdered By: Adrien Foley on 04-18-2025 Nucleated RBC Auto Ql (Bld) Nucleated erythrocytes [Presence] in Blood by Automated count 0-0.5 [facility] Platelet mean volume Auto (B ld) [Entitic vol]Ordered By: Adrien Foley on 04-18-2025 Platelet mean volume (Bld) [Entitic vol] Platelet mean volume [Entitic volume] in Blood by Automated count 6.6-10.1 [facility] Platelets Auto (Bld) [#/Vol] Ordered By: Adrien Foley on 04-18-2025 Platelets (Bld) [#/Vol] Platelets [#/volume] in Blood by Automated count 150-450 [facility] RBC Auto (Bld) [#/Vol]Ordere d By: Adrien Foley on 04-18-2025 RBC (Bld) [#/Vol] Erythrocytes [#/volu me] in Blood by Automated count 3.90-5.60 [facility] Serum or plasma total choles terol/high density lipoprotein (HDL) cholesterol mass ratOrdered By: Adrien Foley on 04-18-2025 Cholesterol.total/Chol esterol in HDL [Mass ratio] Serum or plasma total cholesterol/high density lipoprotein (HDL) cholesterol mass rat <5.0 [facility] Triglyceride [Mass/volume] i n Serum or PlasmaOrdered By: Adrien Foley on 04-18-2025 Triglyceride [Mass/Vol] Triglyceride [Mass/volume] in Serum or Plasma 0-149 [facility] Comment on above: TRIG ATP III CLASSIF ICATIONTRIG less than 150 mg/dL NormalTRIG 150-199 mg/dL Borderline highTRIG 200-500 mg/dL High TRIG greater than 500 mg/dL Very highStandard traceable to the Center for Disease Conrtrol and Prevention (CDC) test method. WBC Auto (Bld) [#/Vol]Ordere d By: Adrien Foley on 04-18-2025 WBC (Bld) [#/Vol] Leukocytes [#/volume ] in Blood by Automated count 4.1-10.5 [facility] Alanine Aminotransferaseon 0 03-26-2025 ALT [Catalytic activity/Vol] 26 U/L Normal 7-52 [facility] Comment on above: Performed By: #### C BC, ALT, LIPID, AST #### [facility] [address] Alanine aminotransferase [En zymatic activity/volume] in Serum or PlasmaOrdered By: Adrien Foley on 03-26-2025 ALT [Catalytic activity/Vol] Alanine aminotransferase [Enzymatic activity/volume] in Serum or Plasma 7-52 [facility] Aspartate Amino Transferaseo n 03-26-2025 AST [Catalytic activity/Vol] 26 U/L Normal 13-39 [facility] Comment on above: Performed By: #### A LT, AST, LIPID, BMP, CBC #### [facility] [address] Aspartate aminotransferase [ Enzymatic activity/volume] in Serum or PlasmaOrdered By: Adrien Foley on 03-26-2025 AST [Catalytic activity/Vol] Aspartate aminotransferase [Enzymatic activity/volume] in Serum or Plasma 13-39 [facility] Basic Metabolic Panelon 050 Anion gap [Moles/Vol] 11.3 mmol/L Normal 6.0-15.0 [facility] Comment on above: Performed By: #### A LT, AST, LIPID, BMP, CBC #### [facility] [address] Calcium [Mass/Vol] 9.0 mg/dL Normal 8.6-10.3 [facility] Comment on above: Performed By: #### A LT, AST, LIPID, BMP, CBC #### [facility] [address] Chloride [Moles/Vol] 105 mmol/L Normal 98-107 [facility] Comment on above: Performed By: #### A LT, AST, LIPID, BMP, CBC #### [facility] [address] CO2 [Moles/Vol] 27.4 mmol/L Normal 21.0-31.0 [facility] Comment on above: Performed By: #### A LT, AST, LIPID, BMP, CBC #### [address] Creatinine [Mass/Vol] 1.42 mg/dL High 0.70-1.30 [facility] Comment on above: Performed By: #### A LT, AST, LIPID, BMP, CBC #### [facility] [address] Estimated GFR 51.852 mL/Min Normal [facility] Comment on above: Performed By: #### A LT, AST, LIPID, BMP, CBC #### [address] Glucose [Mass/Vol] 100 mg/dL Normal 70-100 [facility] Comment on above: Result Comment: [facility] Glucose Reference Range is dependent on time and content of last meal. Glucose of more than 200 mg/dL in a nonstressed, ambulatory subject supports the diagnosis of Diabetes Mellitus. ADA recommended reference range Performed By: #### A LT, AST, LIPID, BMP, CBC #### [facility] [address] Potassium [Moles/Vol] 4.7 mmol/L Normal 3.5-5.1 [facility] Comment on above: Performed By: #### A LT, AST, LIPID, BMP, CBC #### [facility] [address] Sodium [Moles/Vol] 139 mmol/L Normal 136-145 [facility] Comment on above: Performed By: #### A LT, AST, LIPID, BMP, CBC #### [facility] [address] Urea nitrogen [Mass/Vol] 24 mg/dL Normal 7-25 [facility] Comment on above: Performed By: #### A LT, AST, LIPID, BMP, CBC #### [facility] [address] Basophils Auto (Bld) [#/Vol] Ordered By: Adrien Foley on 03-26-2025 Basophils (Bld) [#/Vol] Automated basophil count 0.0-0.2 [facility] Basophils/100 WBC Auto (Bld) Ordered By: Adrien Foley on 03-26-2025 Basophils/100 WBC (Bld) Automated basophil % . [facility] Calcium [Mass/volume] in Ser um or PlasmaOrdered By: Adrien Foley on 03-26-2025 Calcium [Mass/Vol] Calcium [Mass/volume ] in Serum or Plasma 8.6-10.3 [facility] Carbon dioxide, total [Moles /volume] in Serum or PlasmaOrdered By: Adrien Foley on 03-26-2025 CO2 [Moles/Vol] Carbon dioxide, tota l [Moles/volume] in Serum or Plasma 21.0-31.0 [facility] Chloride [Moles/volume] in S chong or PlasmaOrdered By: Adrien Foley on 03-26-2025 Chloride [Moles/Vol] Chloride [Moles/vol ume] in Serum or Plasma 98-107 [facility] Cholesterol [Mass/volume] in Serum or PlasmaOrdered By: Adrien Foley on 03-26-2025 Cholesterol [Mass/Vol] Cholesterol [Mass /volume] in Serum or Plasma 140-200 [facility] Comment on above: Chol less than 200 m g/dl low riskChol 201-239 mg/dl borderline riskChol 240 mg/dl and greater high risk Cholesterol in HDL [Mass/vol ume] in Serum or PlasmaOrdered By: Adrien Foley on 03-26-2025 Cholesterol in HDL [Mass/Vol] Serum or plasma high density lipoprotein (HDL) cholesterol measurement 23- [facility] Comment on above: HDL CHOL ATP-III CLA SSIFICATION Cardiovascular RiskHDL > or equal to 60 mg/dL LOWHDL < 40 mg/dL HIGH Cholesterol in LDL Calc [Mas s/Vol]Ordered By: Adrien Foley on 03-26-2025 Cholesterol in LDL [Mass/Vol] Cholesterol in LDL [Mass/volume] in Serum or Plasma by calculation 0-100 [facility] Comment on above: LDL ATP III CLASSIFI CATIONLDL less than 100 mg/dL OptimalLDL 100-129 mg/dL Near or above optimalLDL 130-159 mg/dL Borderline highLDL 160-189 mg/dL HighLDL greater than 189 mg/dL Very high Cholesterol in VLDL Calc [Ma ss/Vol]Ordered By: Adrien Foley on 03-26-2025 Cholesterol in VLDL [Mass/Vol] Cholesterol in VLDL [Mass/volume] in Serum or Plasma by calculation [facility] Complete Blood Count Auto Di ffon 03-26-2025 Basophils (Bld) [#/Vol] 0.1 10*3/uL Normal 0.0-0.2 [facility] Comment on above: Result Comment: PERF ORMED BY: [place] [address] PATHOLOGIST [employer] MARCIN JOSEPH M.D. Performed By: #### A LT, AST, LIPID, BMP, CBC #### [address] Basophils/100 WBC (Bld) 1.1 % Normal . [facility] Comment on above: Performed By: #### A LT, AST, LIPID, BMP, CBC #### [address] Eosinophils (Bld) [#/Vol] 0.2 10*3/uL Normal 0.0-0.45 [facility] Comment on above: Performed By: #### A LT, AST, LIPID, BMP, CBC #### [address] Eosinophils/100 WBC (Bld) 3.7 % Normal . [facility] Comment on above: Performed By: #### A LT, AST, LIPID, BMP, CBC #### [address] Erythrocyte distribution width (RBC) [Ratio] 14.1 % Normal 12.0-14.8 [facility] Comment on above: Performed By: #### A LT, AST, LIPID, BMP, CBC #### [address] Hematocrit (Bld) [Volume fraction] 46.8 % Normal 38.8-50.0 [facility] Comment on above: Performed By: #### A LT, AST, LIPID, BMP, CBC #### [address] Hemoglobin (Bld) [Mass/Vol] 16.0 g/dL Normal 13.0-17.0 [facility] Comment on above: Performed By: #### A LT, AST, LIPID, BMP, CBC #### [address] Lymphocytes (Bld) [#/Vol] 1.4 10*3/uL Normal 1.00-4.8 [facility] Comment on above: Performed By: #### A LT, AST, LIPID, BMP, CBC #### [address] Lymphocytes/100 WBC (Bld) 21.1 % Normal . [facility] Comment on above: Performed By: #### A LT, AST, LIPID, BMP, CBC #### [address] MCH (RBC) [Entitic mass] 32.3 pg Normal 27.5-35.2 [facility] Comment on above: Performed By: #### A LT, AST, LIPID, BMP, CBC #### [address] MCV (RBC) [Entitic vol] 94.4 fL Normal 83.5-101 [facility] Comment on above: Performed By: #### A LT, AST, LIPID, BMP, CBC #### [address] Mean Corpuscular HGB Conc 34.2 g/dL Normal 32.5-35.6 [facility] Comment on above: Performed By: #### A LT, AST, LIPID, BMP, CBC #### [address] Monocytes (Bld) [#/Vol] 0.8 10*3/uL Normal 0.0-0.8 [facility] Comment on above: Performed By: #### A LT, AST, LIPID, BMP, CBC #### [address] Monocytes/100 WBC (Bld) 12.1 % Normal . [facility] Comment on above: Performed By: #### A LT, AST, LIPID, BMP, CBC #### [address] Neutrophils (Bld) [#/Vol] 4.1 10*3/uL Normal 1.8-7.7 [facility] Comment on above: Performed By: #### A LT, AST, LIPID, BMP, CBC #### [address] Neutrophils/100 WBC (Bld) 62.0 % Normal . [facility] Comment on above: Performed By: #### A LT, AST, LIPID, BMP, CBC #### [address] NRBC% 0.1 /100{WBC} Normal 0-0.5 [facility] Comment on above: Performed By: #### A LT, AST, LIPID, BMP, CBC #### [address] Platelet mean volume (Bld) [Entitic vol] 8.8 fL Normal 6.6-10.1 [facility] Comment on above: Performed By: #### A LT, AST, LIPID, BMP, CBC #### [address] Platelets (Bld) [#/Vol] 179 10*3/uL Normal 150-450 [facility] Comment on above: Performed By: #### A LT, AST, LIPID, BMP, CBC #### [address] RBC (Bld) [#/Vol] 4.96 10*6/uL Normal 3.90-5.60 [facility] Comment on above: Performed By: #### A LT, AST, LIPID, BMP, CBC #### [address] WBC (Bld) [#/Vol] 6.6 10*3/uL Normal 4.1-10.5 [facility] Comment on above: Performed By: #### A LT, AST, LIPID, BMP, CBC #### [address] Creatinine [Mass/volume] in Serum or PlasmaOrdered By: Adrien Foley on 03-26-2025 Creatinine [Mass/Vol] Creatinine [Mass/v olume] in Serum or Plasma High 0.70-1.30 [facility] Eosinophils Auto (Bld) [#/Vo l]Ordered By: Adrien Foley on 03-26-2025 Eosinophils (Bld) [#/Vol] Automated eosinophil count 0.0-0.45 [facility] Eosinophils/100 WBC Auto (Bl d)Ordered By: Adrien Foley on 03-26-2025 Eosinophils/100 WBC (Bld) Automated eosinophil % . [facility] Erythrocyte distribution wid th Auto (RBC) [Ratio]Ordered By: Adrien Foley on 03-26-2025 Erythrocyte distribution width (RBC) [Ratio] Erythrocyte distribution width [Ratio] by Automated count 12.0-14.8 [facility] Glucose [Mass/volume] in Ser um or PlasmaOrdered By: Adrien Foley on 03-26-2025 Glucose [Mass/Vol] Glucose [Mass/volume ] in Serum or Plasma 70-100 [facility] Comment on above: ADA recommended refe rence rangeRandom Glucose Reference Range is dependent on time and content of last meal. Glucose of more than 200 mg/dL in a nonstressed, ambulatory subject supports the diagnosis of Diabetes Mellitus. Hematocrit Auto (Bld) [Volum e fraction]Ordered By: Adrien Foley on 03-26-2025 Hematocrit (Bld) [Volume fraction] Hematocrit [Volume Fraction] of Blood by Automated count 38.8-50.0 [facility] Hemoglobin [Mass/volume] in BloodOrdered By: Adrien Foley on 03-26-2025 Hemoglobin (Bld) [Mass/Vol] Hemoglobin [Mass/volume] in Blood 13.0-17.0 [facility] Leukocytes [#/volume] correc zackary for nucleated erythrocytes in Blood by Automated counOrdered By: Adrien Foley on 03-26-2025 WBC corrected for nucl RBC Auto (Bld) [#/Vol] Leukocytes [#/volume] corrected for nucleated erythrocytes in Blood by Automated coun 4.1-10.5 [facility] Lipid Panelon 03-26-2025 Cholesterol [Mass/Vol] 142 mg/dL Normal 140-200 [facility] Comment on above: Result Comment: Chol less than 200 mg/dl low risk Chol 201-239 mg/dl borderline risk Chol 240 mg/dl and greater high risk Performed By: #### C BC, ALT, LIPID, AST #### [facility] [address] Cholesterol in HDL [Mass/Vol] 43 mg/dL Normal 23-92 [facility] Comment on above: Result Comment: HDL CHOL ATP-III CLASSIFICATION Cardiovascular Risk HDL > or equal to 60 mg/dL LOW HDL < 40 mg/dL HIGH Performed By: #### C BC, ALT, LIPID, AST #### [facility] [address] Cholesterol.total/Chol esterol in HDL [Mass ratio] 3.3 {ratio} Normal <5.0 [facility] Comment on above: Result Comment: PERF ORMED BY: [place] [address] PATHOLOGIST [employer] MARCIN JOSEPH M.D. Performed By: #### C BC, ALT, LIPID, AST #### [address] LDL Cholesterol,Calculated 85 mg/dL Normal 0-100 [facility] Comment on above: Result Comment: LDL ATP III CLASSIFICATION LDL less than 100 mg/dL Optimal LDL 100-129 mg/dL Near or above optimal LDL 130-159 mg/dL Borderline high LDL 160-189 mg/dL High LDL greater than 189 mg/dL Very high Performed By: #### C BC, ALT, LIPID, AST #### [address] Triglyceride w/Reflex 71 mg/dL Normal 0-149 [facility] Comment on above: Result Comment: TRIG ATP III CLASSIFICATION TRIG less than 150 mg/dL Normal TRIG 150-199 mg/dL Borderline high TRIG 200-500 mg/dL High TRIG greater than 500 mg/dL Very high Standard traceable to the Center for Disease Conrtrol and Prevention (CDC) test method. Performed By: #### C BC, ALT, LIPID, AST #### [address] VLDL CHOLESTEROL 14 mg/dL Normal [facility] Comment on above: Performed By: #### C BC, ALT, LIPID, AST #### [address] Lymphocytes Auto (Bld) [#/Vo l]Ordered By: Adrien Foley on 03-26-2025 Lymphocytes (Bld) [#/Vol] Lymphocytes [#/volume] in Blood by Automated count 1.00-4.8 [facility] Lymphocytes/100 WBC Auto (Bl d)Ordered By: Adrien Foley on 03-26-2025 Lymphocytes/100 WBC (Bld) Lymphocytes/100 leukocytes in Blood by Automated count . [facility] MCH Auto (RBC) [Entitic mass ]Ordered By: Adrien Foley on 03-26-2025 MCH (RBC) [Entitic mass] MCH [Entitic mass] by Automated count 27.5-35.2 [facility] MCHC Auto (RBC) [Mass/Vol]Or dered By: Adrien Foley on 03-26-2025 MCHC (RBC) [Mass/Vol] MCHC [Mass/volume] by Automated count 32.5-35.6 [facility] MCV Auto (RBC) [Entitic vol] Ordered By: Adrien Foley on 03-26-2025 MCV (RBC) [Entitic vol] MCV [Entitic volume] by Automated count 83.5-101 [facility] Monocytes Auto (Bld) [#/Vol] Ordered By: Adrien Foley on 03-26-2025 Monocytes (Bld) [#/Vol] Automated blood monocyte count 0.0-0.8 [facility] Monocytes/100 WBC Auto (Bld) Ordered By: Adrien Foley on 03-26-2025 Monocytes/100 WBC (Bld) Automated monocyte % . [facility] Neutrophils Auto (Bld) [#/Vo l]Ordered By: Adrien Foley on 03-26-2025 Neutrophils (Bld) [#/Vol] Neutrophils [#/volume] in Blood by Automated count 1.8-7.7 [facility] Neutrophils/100 WBC Auto (Bl d)Ordered By: Adrien Foley on 03-26-2025 Neutrophils/100 WBC (Bld) Automated neutrophil % . [facility] No Panel InformationOrdered By: Adrien Foley on 03-26-2025 Estimated GFR (CKD-EPI) 51.852 mL/Min [facility] Creatinine Clearance (Chem N/A [facility] Nucleated erythrocytes [Pres ence] in Blood by Automated countOrdered By: Adrien Foley on 03-26-2025 Nucleated RBC Auto Ql (Bld) Nucleated erythrocytes [Presence] in Blood by Automated count 0-0.5 [facility] Platelet mean volume Auto (B ld) [Entitic vol]Ordered By: Adrien Foley on 03-26-2025 Platelet mean volume (Bld) [Entitic vol] Platelet mean volume [Entitic volume] in Blood by Automated count 6.6-10.1 [facility] Platelets Auto (Bld) [#/Vol] Ordered By: Adrien Foley on 03-26-2025 Platelets (Bld) [#/Vol] Platelets [#/volume] in Blood by Automated count 150-450 [facility] Potassium [Moles/volume] in Serum or PlasmaOrdered By: Adrien Foley on 03-26-2025 Potassium [Moles/Vol] Potassium [Moles/v olume] in Serum or Plasma 3.5-5.1 [facility] RBC Auto (Bld) [#/Vol]Ordere d By: Adrien Foley on 03-26-2025 RBC (Bld) [#/Vol] Erythrocytes [#/volu me] in Blood by Automated count 3.90-5.60 [facility] Serum or plasma anion gap de terminationOrdered By: Adrien Foley on 03-26-2025 Anion gap [Moles/Vol] Serum or plasma an ion gap determination 6.0-15.0 [facility] Serum or plasma total choles terol/high density lipoprotein (HDL) cholesterol mass ratOrdered By: Adrien Foley on 03-26-2025 Cholesterol.total/Chol esterol in HDL [Mass ratio] Serum or plasma total cholesterol/high density lipoprotein (HDL) cholesterol mass rat <5.0 [facility] Sodium [Moles/volume] in Ser um or PlasmaOrdered By: Adrien Foley on 03-26-2025 Sodium [Moles/Vol] Sodium [Moles/volume ] in Serum or Plasma 136-145 [facility] Triglyceride [Mass/volume] i n Serum or PlasmaOrdered By: Adrien Foley on 03-26-2025 Triglyceride [Mass/Vol] Triglyceride [Mass/volume] in Serum or Plasma 0-149 [facility] Comment on above: TRIG ATP III CLASSIF ICATIONTRIG less than 150 mg/dL NormalTRIG 150-199 mg/dL Borderline highTRIG 200-500 mg/dL High TRIG greater than 500 mg/dL Very highStandard traceable to the Center for Disease Conrtrol and Prevention (CDC) test method. Urea nitrogen [Mass/volume] in Serum or PlasmaOrdered By: Adrien Foley on 03-26-2025 Urea nitrogen [Mass/Vol] Urea nitrogen [Mass/volume] in Serum or Plasma 06-14 [facility] WBC Auto (Bld) [#/Vol]Ordere d By: Adrien Foley on 03-26-2025 WBC (Bld) [#/Vol] Leukocytes [#/volume ] in Blood by Automated count 4.1-10.5 [facility] Ambulatory Visit Summaryon 1 12-24-2023 Ambulatory [...] for choosing us for your care. Normal [facility] General Surgery Office/Clini c Noteon 10-23-2024 General [...] virus vaccine, inactivated 08/2023 Recorded SARS-CoV-2 (COVID-19) [id number] 09/24/2022 Recorded influenza virus vaccine, inactivated 08/31/2022 Recorded SARSCoV2 mRNA([id number]) vac 03/29/2022 Recorded SARS-CoV-2 (COVID-19) Ad26 vaccine [...] virus vaccine, inactivated 09/09/2016 Recorded Normal [facility] Comment on above: Result Comment: Elec tronically Signed By: EVETTE RILEY, Obey Castañeda\.br\Date and Time Signed: 10/23/24 08:13 EST Ambulatory [...] Follow-Up Appointments Tuesday 8:00 AM EST With: Obey ALAS MD Where: [facility] [address], [address], [place] [address]- Medications What How Much When Instructions Unchanged [...] for choosing us for your care. Normal [facility] General Surgery Office/Clini c Noteon 09-18-2024 General [...] virus vaccine, inactivated 08/2023 Recorded SARS-CoV-2 (COVID-19) mRNAMUL.ORD![id number] 09/24/2022 Recorded influenza virus vaccine, inactivated 08/31/2022 Recorded SARSCoV2 mRNA(nocwbordy-kjpt-sipyfo) vac 03/29/2022 Recorded SARS-CoV-2 (COVID-19) Ad26 vaccine [...] virus vaccine, inactivated 09/09/2016 Recorded Normal [facility] Comment on above: Result Comment: Elec tronically Signed By: EVETTE RILEY, Obey Castañeda\.br\Date and Time Signed: 09/18/24 20:07 EDT Pathology Request for Lab Co rpon 08-29-2024 Pathology Request for Lab Zaira Normal [facility] Comment on above: Order Comment: PATHO LOGY SKIN SPECIMEN Result Comment: See report. Scanned copy available in EMR. PERFORMED BY: [place] [address] PATHOLOGIST [employer] KIMBERLEE MATHIAS M.D. Performed By: #### P ATH TO [facility] #### [address] Ambulatory Visit Summaryon 0 08-14-2024 Ambulatory Visit Summary Ambulatory Visit Summary PROSPER CORTÉSHarris Moreno :1950 Visit Date:08/14/2024 Ambulatory Visit Instructions Your [...] for choosing us for your care. Normal [facility] General Surgery Office/Clini c Noteon 08-14-2024 [...] plan wide excision under local anesthesia at [facility], informed consent obtained. Follow-up No qualifying [...] virus vaccine, inactivated 08/2023 Recorded SARS-CoV-2 (COVID-19) mRNAMUL.ORD![id number] 09/24/2022 Recorded influenza virus vaccine, inactivated 08/31/2022 Recorded SARSCoV2 mRNA(hobdhhpnp-wbme-qeppia) vac 03/29/2022 Recorded SARS-CoV-2 (COVID-19) Ad26 vaccine 09/2021 Recorded SARS-CoV-2 (COVID-19) mRNA-1273 vaccine 09/13/2021 Recorded SARS-CoV-2 (COVID-19) Ad26 vaccine 02/2021 Recorded SARS-CoV-2 (COVID-19) mRNA-1273 vaccine 02/04/2021 Recorded SARS-CoV-2 (COVID-19) Ad26 vaccine 01/2021 Recorded SARS-CoV-2 (COVID-19) mRNA-1273 vaccine 01/07/2021 Recorded influenza virus vaccine, inactivated 09/03/2020 Recorded influenza virus vaccine, inactivated (more content not included)... Normal [facility] Comment on above: Result Comment: Elec tronically Signed By: EVETTE RILEY, Obey Castañeda\destiney\Date and Time Signed: 08/14/24 15:06 EDT INSULINon 01-28-2023 Insulin 15.8 uIU/mL Normal 2.6-24.9 [facility] Comment on above: Performed By: #### I NSULIN #### [facility] [address] [place] [address] Dr. Braulio Fritz CBC AUTO DIFFon 01-27-2023 BASO # 0.0 103/ul Normal 0.0-0.1 [facility] Comment on above: Performed By: #### I NSULIN #### [facility] [address] [place] [address] Dr. Braulio Fritz Basophils/100 WBC (Bld) 0.5 % Normal 0.2-2.0 [facility] Comment on above: Performed By: #### I NSULIN #### [facility] [address] [place] [address] Dr. Braulio Fritz EO # 0.3 103/ul Normal 0.0-0.7 [facility] Comment on above: Performed By: #### I NSULIN #### [facility] [address] [place] [address] Dr. Braulio Fritz Eosinophils/100 WBC (Bld) 3.2 % Normal 0.9-7.0 [facility] Comment on above: Performed By: #### I NSULIN #### [facility] [address] [place] [address] Dr. Braulio Fritz Erythrocyte distribution width (RBC) [Ratio] 14.8 % Normal 11.0-15.0 [facility] Comment on above: Performed By: #### I NSULIN #### [facility] [address] [place] [address] Dr. Braulio Fritz Hematocrit (Bld) [Volume fraction] 48.1 % Normal 42.0-54.0 [facility] Comment on above: Performed By: #### I NSULIN #### [facility] [address] [place] [address] Dr. Braulio Fritz Hemoglobin (Bld) [Mass/Vol] 16.1 g/dL Normal 14.0-18.0 [facility] Comment on above: Performed By: #### I NSULIN #### [facility] [address] [place] [address] Dr. Braulio Fritz IG # 0.05 10e3/ul Critically high 0.00-0.03 [facility] Comment on above: Performed By: #### I NSULIN #### [facility] [address] [place] [address] Dr. Braulio Fritz IG % 0.6 % Critically high 0.0-0.5 [facility] Comment on above: Performed By: #### I NSULIN #### [facility] [address] [place] [address] Dr. Braulio Fritz LYMPH # 2.2 103/ul Normal 1.2-3.8 [facility] Comment on above: Performed By: #### I NSULIN #### [facility] [address] [place] [address] Dr. Braulio Fritz Lymphocytes/100 WBC (Bld) 25.7 % Normal 20.5-60.0 [facility] Comment on above: Performed By: #### I NSULIN #### [facility] [address] [place] [address] Dr. Braulio Fritz MANUAL DIFF REQ NO Normal [facility] Comment on above: Performed By: #### I NSULIN #### [facility] [address] [place] [address] Dr. Braulio Fritz MCH (RBC) [Entitic mass] 31.7 pg Normal 25.9-34.0 [facility] Comment on above: Performed By: #### I NSULIN #### [facility] [address] [place] [address] Dr. Braulio Fritz MCHC (RBC) [Mass/Vol] 33.5 g/dL Normal 29.9-35.2 [facility] Comment on above: Performed By: #### I NSULIN #### [facility] [address] [place] [address] Dr. Braulio Fritz MCV (RBC) [Entitic vol] 94.7 fL Critically high 80.0-94.0 [facility] Comment on above: Performed By: #### I NSULIN #### [facility] [address] [place] [address] Dr. Braulio Fritz MONO # 0.9 103/ul Critically high 0.3-0.8 [facility] Comment on above: Performed By: #### I NSULIN #### [facility] [address] [place] [address] Dr. Braulio Fritz Monocytes/100 WBC (Bld) 10.5 % Normal 1.7-12.0 [facility] Comment on above: Performed By: #### I NSULIN #### [facility] [address] [place] [address] Dr. Braulio Fritz NEUT # 5.1 103/ul Normal 1.4-6.5 [facility] Comment on above: Performed By: #### I NSULIN #### [facility] [address] [place] [address] Dr. Braulio Fritz Neutrophils/100 WBC (Bld) 59.5 % Normal 43.0-75.0 [facility] Comment on above: Performed By: #### I NSULIN #### [facility] [address] [place] [address] Dr. Braulio Fritz Platelet mean volume (Bld) [Entitic vol] 10.5 fL Normal 9.5-13.5 [facility] Comment on above: Performed By: #### I NSULIN #### [facility] [address] [place] [address] Dr. Braulio Fritz PLT 187 103/ul Normal 150-450 [facility] Comment on above: Performed By: #### I NSULIN #### [facility] [address] [place] [address] Dr. Braulio Fritz RBC 5.08 106/ul Normal 4.70-6.10 [facility] Comment on above: Performed By: #### I NSULIN #### [facility] [address] [place] [address] Dr. Braulio Fritz WBC 8.5 103/ul Normal 4.0-11.0 [facility] Comment on above: Performed By: #### I NSULIN #### [facility] [address] [place] [address] Dr. Braulio Fritz FREE THYROXINE INDEX T7on FTI 2.39 Normal 1.30-4.50 [facility] Comment on above: Performed By: #### I NSULIN #### [facility] [address] [place] [address] Dr. Braulio Fritz T3U 38.0 % Normal 33.0-40.0 [facility] Comment on above: Performed By: #### I NSULIN #### [facility] [address] [place] [address] Dr. Braulio Fritz T4 [Mass/Vol] 6.30 ug/dL Normal 4.50-12.10 [facility] Comment on above: Performed By: #### I NSULIN #### [facility] [address] [place] [address] Dr. Braulio Fritz GLYCOHEMOGLOBIN A1Con 2022 ADA RECOMMENDATION SEE BELOW Normal [facility] Comment on above: Result Comment: ADA RECOMMENDED LIMIT 4.0 - 6.0 ADA THERAPEUTIC TARGET < 7.0 ACTION SUGGESTED > 7.0 Performed By: #### A 1C #### [facility] [address] [place] [address] Dr. Braulio Fritz Glucose [Mass/Vol] 111 mg/dL Normal [facility] Comment on above: Performed By: #### A 1C #### [facility] [address] [place] [address] Dr. Braulio Fritz HbA1c (Bld) [Mass fraction] 5.5 % Normal 4.5-6.2 [facility] Comment on above: Performed By: #### A 1C #### [facility] [address] [place] [address] Dr. Braulio Fritz LIPID PROFILEon 01-27-2023 CHOL-HDL RATIO NORM SEE BELOW Normal [facility] Comment on above: Result Comment: 3.3 - 4.4 LOW RISK 4.4 - 7.1 AVERAGE RISK 7.1 - 11.0 MODERATE RISK >11.0 HIGH RISK Performed By: #### I NSULIN #### [facility] [address] [place] [address] Dr. Braulio Fritz Cholesterol [Mass/Vol] 162 mg/dL Normal <=200 [facility] Comment on above: Performed By: #### I NSULIN #### [facility] [address] [place] [address] Dr. Braulio Fritz Cholesterol in HDL [Mass/Vol] 48 mg/dL Normal 40-60 [facility] Comment on above: Performed By: #### I NSULIN #### [facility] [address] [address] [address] Braulio Fritz Cholesterol in LDL [Mass/Vol] 91.6 mg/dL Normal [facility] Comment on above: Performed By: #### I NSULIN #### [facility] [address] [address] [address] Braulio Fritz Cholesterol.total/Chol esterol in HDL [Mass ratio] 3.4 {ratio} Normal [facility] Comment on above: Performed By: #### I NSULIN #### [facility] [address] [place] [address] Dr. Braulio Fritz HDL NORMAL > or = 60 mg/dl - LO W CARDIOVASCULAR RISK <40 mg/dl - HIGH CARDIOVASCULAR RISK Normal [facility] Comment on above: Performed By: #### I NSULIN #### [facility] [address] [place] [address] Dr. Braulio Fritz LDL CALC NORMAL SEE BELOW Normal [facility] Comment on above: Result Comment: <100 mg/dl OPTIMAL 100 - 129 mg/dl NEAR OR ABOVE OPTIMAL 130 - 159 mg/dl BORDERLINE HIGH 160 - 189 mg/dl HIGH >190 mg/dl VERY HIGH Performed By: #### I NSULIN #### [facility] [address] [place] [address] Dr. Braulio Fritz Triglyceride [Mass/Vol] 112 mg/dL Normal <=150 [facility] Comment on above: Performed By: #### I NSULIN #### [facility] [address] [place] [address] Dr. Braulio Fritz VLDL CALC 22.4 mg/dL Normal [facility] Comment on above: Performed By: #### I NSULIN #### [facility] [address] [place] [address] Dr. Braulio Fritz PROF 14(COMP METB)on 023 Albumin [Mass/Vol] 3.6 g/dL Normal 3.4-5.0 [facility] Comment on above: Performed By: #### I NSULIN #### [facility] [address] [place] [address] Dr. Braulio Fritz Albumin/Globulin [Mass ratio] 1.1 {ratio} Normal [facility] Comment on above: Performed By: #### I NSULIN #### [facility] [address] [place] [address] Dr. Braulio Fritz ALP [Catalytic activity/Vol] 111 U/L Normal 46-116 [facility] Comment on above: Performed By: #### I NSULIN #### [facility] [address] [place] [address] Dr. Braulio Fritz ALT [Catalytic activity/Vol] 31 U/L Normal 16-63 [facility] Comment on above: Performed By: #### I NSULIN #### [facility] [address] [place] [address] Dr. Braulio Fritz Anion gap [Moles/Vol] 12.6 mmol/L Normal [facility] Comment on above: Performed By: #### I NSULIN #### [facility] [address] [place] [address] Dr. Braulio Fritz AST [Catalytic activity/Vol] 23 U/L Normal 15-37 [facility] Comment on above: Performed By: #### I NSULIN #### [facility] [address] [place] [address] Dr. Braulio Fritz Bilirubin [Mass/Vol] 1.7 mg/dL Critically high 0.2-1.0 [facility] Comment on above: Performed By: #### I NSULIN #### [facility] [address] [place] [address] Dr. Braulio Fritz Calcium [Mass/Vol] 9.1 mg/dL Normal 8.5-10.1 [facility] Comment on above: Performed By: #### I NSULIN #### [facility] [address] [place] [address] Dr. Braulio Fritz Chloride [Moles/Vol] 107 mmol/L Normal 98-107 [facility] Comment on above: Performed By: #### I NSULIN #### [facility] [address] [place] [address] Dr. Braulio Frtiz CO2 [Moles/Vol] 28.7 mmol/L Normal 21.0-32.0 [facility] Comment on above: Performed By: #### I NSULIN #### [facility] [address] [place] [address] Dr. Braulio Fritz Creatinine [Mass/Vol] 1.41 mg/dL Critically high 0.70-1.30 [facility] Comment on above: Performed By: #### I NSULIN #### [facility] [address] [place] [address] Dr. Braulio Fritz EGFR-AF BARBADIAN 60 mL/min/1.73m2 Normal >=60 [facility] Comment on above: Performed By: #### I NSULIN #### [facility] [address] [place] [address] Dr. Braulio Fritz EGFR-NON AF BARBADIAN 49 mL/min/1.73m2 Critically low >=60 [facility] Comment on above: Performed By: #### I NSULIN #### [facility] [address] [place] [address] Dr. Braulio Fritz Globulin (S) [Mass/Vol] 3.2 g/dL Normal [facility] Comment on above: Performed By: #### I NSULIN #### [facility] [address] [place] [address] Dr. Braulio Fritz Glucose [Mass/Vol] 95 mg/dL Normal 74-106 [facility] Comment on above: Performed By: #### I NSULIN #### [facility] [address] [place] [address] Dr. Braulio Fritz Potassium [Moles/Vol] 4.3 mmol/L Normal 3.5-5.1 [facility] Comment on above: Performed By: #### I NSULIN #### [facility] [address] [place] [address] Dr. Braulio Fritz Protein [Mass/Vol] 6.8 g/dL Normal 6.4-8.2 [facility] Comment on above: Performed By: #### I NSULIN #### [facility] [address] [place] [address] Dr. Braulio Fritz Sodium [Moles/Vol] 144 mmol/L Normal 136-145 [facility] Comment on above: Performed By: #### I NSULIN #### [facility] [address] [place] [address] Dr. Braulio Fritz Urea nitrogen [Mass/Vol] 24.0 mg/dL Critically high 7.0-18.0 [facility] Comment on above: Performed By: #### I NSULIN #### [facility] [address] [place] [address] Dr. Braulio Fritz Urea nitrogen/Creatinine [Mass ratio] 17.0 mg/mg Normal [facility] Comment on above: Performed By: #### I NSULIN #### [facility] [address] [place] [address] Dr. Braulio Fritz SED RATE WESTERGRENon 2022 SED RATE 19 mm/hr Normal <=20 [facility] Comment on above: Performed By: #### I NSULIN #### [facility] [address] [place] [address] Dr. Braulio Fritz TSHon 01-27-2023 TSH 0.882 uIU/mL Normal 0.358-3.74 0 [facility] Comment on above: Performed By: #### I NSULIN #### [facility] [address] [place] [address] Dr. Braulio Fritz URIC ACID SERUMon 01-27-2023 Urate [Mass/Vol] 7.3 mg/dL Critically high 3.5-7.2 [facility] Comment on above: Performed By: #### I NSULIN #### [facility] [address] [place] [address] Dr. Braulio Fritz VITAMIN D 25 OHon 01-27-2023 VIT D 25-OH 44.5 ng/mL Normal [facility] Comment on above: Performed By: #### P SASC, VITAD #### [facility] [address] [place] [address] Dr. Braulio Fritz VIT D RANGES SEE BELOW Normal [facility] Comment on above: Result Comment: <20 ng/mL Vit D deficient 20 - <30 ng/mL Vit D insufficient 30 - 100 ng/mL Vit D sufficient >100 ng/mL Potential Toxicity Performed By: #### P SASC, VITAD #### [facility] [address] [place] [address] Dr. Braulio Fritz T4 [facility] 04-16-20[facility] T4 [Mass/Vol] 6.6 ug/dL Normal 4.5-12.0 [facility] Comment on above: Performed By: #### I NSULIN #### [facility] [address] [address] [address] Braulio Fritz NM STRESS/REST MULTIon 04-15 NM STRESS/REST MULTI Patient: JOSY CORTÉS. Exam Date: 04/15/2022 : 1950 Gender:M Ordering : DR TESS FUENTES . Admission #: [id number] Family : Order #: [id number] CLICK HERE TO VIEW EXAM RADIOLOGY REPORT [...] Stahl M.D. on 04/16/2022 at 13:16 Normal [facility] ECHOCARDIO M/2D COMPLETEon 0 04-13-2022 ECHOCARDIO M/2D COMPLETE Patient: LÓPEZ CORTÉS Exam Date: 04/13/2022 : 1950 Gender:M Ordering : DR TESS FUENTES . Admission #: [id number] Family : Order #: [id number] CLICK HERE TO VIEW EXAM ECHOCARDIOGRAM REPORT [...] Area(A4C): 20.60 cm2 Left Atrium Systolic Volume(A2C): 07645 mm3 Left Atrium Systolic Volume(A4C): 62273 mm3 Mitral Valve MV E to A Ratio: 0.80 Mitral Valve A-Wave Peak Velocity: 91.80 cm/s Mitral Valve E-Wave Peak Velocity: 76.00 cm/s Deceleration Time: 235 ms Right Ventricle Aorta AO Root Diam: 3.30 cm Aortic Valve Peak Velocity (Antegrade Flow): 138.00 cm/s AoV Area (Peak Jenny): 2.76 cm2 AoV Area (VTI): 3.15 cm2 [...] M.D. on 04/13/2022 at 11:36 Normal [facility] OCC BLD IMMUNO SCREENon 03-22 OCCULT BLOOD Negative Normal NEGATIVE [facility] Comment on above: Performed By: #### O BSCRN #### [facility] [address] [place] [address] Dr. Braulio Fritz INSULINon 04-12-2022 Insulin 18.7 uIU/mL Normal 2.6-24.9 [facility] Comment on above: Performed By: #### I NSULIN #### [facility] [address] [place] [address] Dr. Braulio Fritz BNPon 04-10-2022 Natriuretic peptide B (Bld) [Mass/Vol] 672.0 pg/mL Normal <=900.0 [facility] Comment on above: Performed By: #### A 1C #### [facility] [address] [place] [address] Dr. Braulio Fritz CBC AUTO DIFFon 04-10-2022 BASO # 0.1 103/ul Normal 0.0-0.1 [facility] Comment on above: Performed By: #### I NSULIN #### [facility] [address] [place] [address] Dr. Braulio Fritz Basophils/100 WBC (Bld) 0.8 % Normal 0.2-2.0 [facility] Comment on above: Performed By: #### I NSULIN #### [facility] [address] [place] [address] Dr. Braulio Fritz EO # 0.3 103/ul Normal 0.0-0.7 [facility] Comment on above: Performed By: #### I NSULIN #### [facility] [address] [place] [address] Dr. Braulio Fritz Eosinophils/100 WBC (Bld) 4.0 % Normal 0.9-7.0 [facility] Comment on above: Performed By: #### I NSULIN #### [facility] [address] [place] [address] Dr. Braulio Fritz Erythrocyte distribution width (RBC) [Ratio] 13.7 % Normal 11.0-15.0 [facility] Comment on above: Performed By: #### I NSULIN #### [facility] [address] [place] [address] Dr. Braulio Fritz Hematocrit (Bld) [Volume fraction] 47.7 % Normal 42.0-54.0 [facility] Comment on above: Performed By: #### I NSULIN #### [facility] [address] [place] [address] Dr. Braulio Fritz Hemoglobin (Bld) [Mass/Vol] 15.9 g/dL Normal 14.0-18.0 [facility] Comment on above: Performed By: #### I NSULIN #### [facility] [address] [place] [address] Dr. Braulio Fritz IG # 0.02 10e3/ul Normal 0.00-0.03 [facility] Comment on above: Performed By: #### I NSULIN #### [facility] [address] [place] [address] Dr. Braulio Fritz IG % 0.3 % Normal 0.0-0.5 [facility] Comment on above: Performed By: #### I NSULIN #### [facility] [address] [place] [address] Dr. Braulio Fritz LYMPH # 1.6 103/ul Normal 1.2-3.8 [facility] Comment on above: Performed By: #### I NSULIN #### [facility] [address] [place] [address] Dr. Braulio Fritz Lymphocytes/100 WBC (Bld) 24.6 % Normal 20.5-60.0 [facility] Comment on above: Performed By: #### I NSULIN #### [facility] [address] [place] [address] Dr. Braulio Fritz MANUAL DIFF REQ NO Normal [facility] Comment on above: Performed By: #### I NSULIN #### [facility] [address] [place] [address] Dr. Braulio Fritz MCH (RBC) [Entitic mass] 31.6 pg Normal 25.9-34.0 [facility] Comment on above: Performed By: #### I NSULIN #### [facility] [address] [place] [address] Dr. Braulio Fritz MCHC (RBC) [Mass/Vol] 33.3 g/dL Normal 29.9-35.2 [facility] Comment on above: Performed By: #### I NSULIN #### [facility] [address] [place] [address] Dr. Braulio Fritz MCV (RBC) [Entitic vol] 94.8 fL Critically high 80.0-94.0 [facility] Comment on above: Performed By: #### I NSULIN #### [facility] [address] [address] [address] Braulio Frtiz MONO # 0.7 103/ul Normal 0.3-0.8 [facility] Comment on above: Performed By: #### I NSULIN #### [facility] [address] [address] [address] Braulio Fritz Monocytes/100 WBC (Bld) 11.2 % Normal 1.7-12.0 [facility] Comment on above: Performed By: #### I NSULIN #### [facility] [address] [address] [address] Braulio Fritz NEUT # 3.8 103/ul Normal 1.4-6.5 [facility] Comment on above: Performed By: #### I NSULIN #### [facility] [address] [place] [address] Dr. Braulio Fritz Neutrophils/100 WBC (Bld) 59.1 % Normal 43.0-75.0 [facility] Comment on above: Performed By: #### I NSULIN #### [facility] [address] [place] [address] Dr. Braulio Fritz Platelet mean volume (Bld) [Entitic vol] 10.0 fL Normal 9.5-13.5 [facility] Comment on above: Performed By: #### I NSULIN #### [facility] [address] [place] [address] Dr. Braulio Fritz PLT 210 103/ul Normal 150-450 [facility] Comment on above: Performed By: #### I NSULIN #### [facility] [address] [place] [address] Dr. Braulio Fritz RBC 5.03 106/ul Normal 4.70-6.10 [facility] Comment on above: Performed By: #### I NSULIN #### [facility] [address] [place] [address] Dr. Braulio Fritz WBC 6.5 103/ul Normal 4.0-11.0 [facility] Comment on above: Performed By: #### I NSULIN #### [facility] [address] [place] [address] Dr. Braulio Fritz FREE THYROXINE INDEX T7on FTI 2.64 Normal 1.30-4.50 [facility] Comment on above: Performed By: #### A 1C #### [facility] [address] [place] [address] Dr. Braulio Fritz T3U 40.0 % Normal 33.0-40.0 [facility] Comment on above: Performed By: #### A 1C #### [facility] [address] [place] [address] Dr. Braulio Fritz T4 [Mass/Vol] 6.60 ug/dL Normal 4.50-12.10 [facility] Comment on above: Performed By: #### A 1C #### [facility] [address] [place] [address] Dr. Braulio Fritz GLYCOHEMOGLOBIN A1Con 2021 ADA RECOMMENDATION SEE BELOW Normal [facility] Comment on above: Result Comment: ADA RECOMMENDED LIMIT 4.0 - 6.0 ADA THERAPEUTIC TARGET < 7.0 ACTION SUGGESTED > 7.0 Performed By: #### A 1C #### [facility] [address] [place] [address] Dr. Braulio Fritz Glucose [Mass/Vol] 114 mg/dL Normal [facility] Comment on above: Performed By: #### A 1C #### [facility] [address] [place] [address] Dr. Braulio Fritz HbA1c (Bld) [Mass fraction] 5.6 % Normal 4.5-6.2 [facility] Comment on above: Performed By: #### A 1C #### [facility] [address] [place] [address] Dr. Braulio Fritz IRONon 04-10-2022 Iron [Mass/Vol] 105.0 ug/dL Normal 65.0-175.0 [facility] Comment on above: Performed By: #### B 12FOL, VITAD, PSASC, IRON #### [facility] [address] [place] [address] Dr. Braulio Fritz LIPID PROFILEon 04-10-2022 CHOL-HDL RATIO NORM SEE BELOW Normal [facility] Comment on above: Result Comment: 3.3 - 4.4 LOW RISK 4.4 - 7.1 AVERAGE RISK 7.1 - 11.0 MODERATE RISK >11.0 HIGH RISK Performed By: #### A 1C #### [facility] [address] [address] [address] Braulio Fritz Cholesterol [Mass/Vol] 132 mg/dL Normal <=200 [facility] Comment on above: Performed By: #### A 1C #### [facility] [address] [address] [address] Braulio Fritz Cholesterol in HDL [Mass/Vol] 38 mg/dL Critically low 40-60 [facility] Comment on above: Performed By: #### A 1C #### [facility] [address] [place] [address] Dr. Braulio Fritz Cholesterol in LDL [Mass/Vol] 71.2 mg/dL Normal [facility] Comment on above: Performed By: #### A 1C #### [facility] [address] [address] [address] Braulio Fritz Cholesterol.total/Chol esterol in HDL [Mass ratio] 3.5 {ratio} Normal [facility] Comment on above: Performed By: #### A 1C #### [facility] [address] [address] [address] Braulio Fritz HDL NORMAL > or = 60 mg/dl - LO W CARDIOVASCULAR RISK <40 mg/dl - HIGH CARDIOVASCULAR RISK Normal [facility] Comment on above: Performed By: #### A 1C #### [facility] [address] [address] [address] Braulio Fritz LDL CALC NORMAL SEE BELOW Normal [facility] Comment on above: Result Comment: <100 mg/dl OPTIMAL 100 - 129 mg/dl NEAR OR ABOVE OPTIMAL 130 - 159 mg/dl BORDERLINE HIGH 160 - 189 mg/dl HIGH >190 mg/dl VERY HIGH Performed By: #### A 1C #### [facility] [address] [address] [address] Braulio Fritz Triglyceride [Mass/Vol] 114 mg/dL Normal <=150 [facility] Comment on above: Performed By: #### A 1C #### [facility] [address] [place] [address] Dr. Braulio Fritz VLDL CALC 22.8 mg/dL Normal [facility] Comment on above: Performed By: #### A 1C #### [facility] [address] [place] [address] Dr. Braulio Fritz PROF 14(COMP METB)on 022 Albumin [Mass/Vol] 3.5 g/dL Normal 3.4-5.0 [facility] Comment on above: Performed By: #### A 1C #### [facility] [address] [place] [address] Dr. Braulio Fritz Albumin/Globulin [Mass ratio] 1.0 {ratio} Normal [facility] Comment on above: Performed By: #### A 1C #### [facility] [address] [place] [address] Dr. Braulio Fritz ALP [Catalytic activity/Vol] 115 U/L Normal 46-116 [facility] Comment on above: Performed By: #### A 1C #### [facility] [address] [place] [address] Dr. Braulio Fritz ALT [Catalytic activity/Vol] 29 U/L Normal 16-63 [facility] Comment on above: Performed By: #### A 1C #### [facility] [address] [place] [address] Dr. Braulio Fritz Anion gap [Moles/Vol] 10.9 mmol/L Normal [facility] Comment on above: Performed By: #### A 1C #### [facility] [address] [place] [address] Dr. Braulio Fritz AST [Catalytic activity/Vol] 23 U/L Normal 15-37 [facility] Comment on above: Performed By: #### A 1C #### [facility] [address] [place] [address] Dr. Braulio Fritz Bilirubin [Mass/Vol] 1.3 mg/dL Critically high 0.2-1.0 [facility] Comment on above: Performed By: #### A 1C #### [facility] [address] [address] [address] Braulio Fritz Calcium [Mass/Vol] 8.8 mg/dL Normal 8.5-10.1 [facility] Comment on above: Performed By: #### A 1C #### [facility] [address] [address] [address] Braulio Fritz Chloride [Moles/Vol] 106 mmol/L Normal 98-107 [facility] Comment on above: Performed By: #### A 1C #### [facility] [address] [address] [address] Braulio Fritz CO2 [Moles/Vol] 27.5 mmol/L Normal 21.0-32.0 [facility] Comment on above: Performed By: #### A 1C #### [facility] [address] [place] [address] Dr. Braulio Fritz Creatinine [Mass/Vol] 1.68 mg/dL Critically high 0.70-1.30 [facility] Comment on above: Performed By: #### A 1C #### [facility] [address] [address] [address] Braulio Fritz EGFR-AF BARBADIAN 49 mL/min/1.73m2 Critically low >=60 [facility] Comment on above: Performed By: #### A 1C #### [facility] [address] [address] [address] Braulio Fritz EGFR-NON AF BARBADIAN 40 mL/min/1.73m2 Critically low >=60 [facility] Comment on above: Performed By: #### A 1C #### [facility] [address] [address] [address] Braulio Fritz Globulin (S) [Mass/Vol] 3.6 g/dL Normal [facility] Comment on above: Performed By: #### A 1C #### [facility] [address] [address] [address] Braulio Fritz Glucose [Mass/Vol] 109 mg/dL Critically high 74-106 [facility] Comment on above: Performed By: #### A 1C #### [facility] [address] [address] [address] Braulio Fritz Potassium [Moles/Vol] 4.4 mmol/L Normal 3.5-5.1 [facility] Comment on above: Performed By: #### A 1C #### [facility] [address] [address] [address] Braulio Fritz Protein [Mass/Vol] 7.1 g/dL Normal 6.4-8.2 [facility] Comment on above: Performed By: #### A 1C #### [facility] [address] [address] [address] Braulio Fritz Sodium [Moles/Vol] 140 mmol/L Normal 136-145 [facility] Comment on above: Performed By: #### A 1C #### [facility] [address] [place] [address] Dr. Braulio Fritz Urea nitrogen [Mass/Vol] 24.0 mg/dL Critically high 7.0-18.0 [facility] Comment on above: Performed By: #### A 1C #### [facility] [address] [place] [address] Dr. Braulio Fritz Urea nitrogen/Creatinine [Mass ratio] 14.3 mg/mg Normal [facility] Comment on above: Performed By: #### A 1C #### [facility] [address] [place] [address] Dr. Braulio Fritz TSHon 04-10-2022 TSH 0.740 uIU/mL Normal 0.358-3.74 0 [facility] Comment on above: Performed By: #### A 1C #### [facility] [address] [place] [address] Dr. Braulio Fritz TSH RANGE SEE BELOW Normal [facility] Comment on above: Result Comment: <0.3 4 UIU/ml HYPERTHYROID 0.34-5.60 UIU/ml EUTHYROID >5.60 UIU/ml HYPOTHYROID Performed By: #### A 1C #### [facility] [address] [place] [address] Dr. Braulio Fritz VIT B12 AND FOLATEon 05-21-2 022 Cobalamin (Vitamin B12) [Mass/Vol] 547.0 pg/mL Normal 193.0-986. 0 [facility] Comment on above: Performed By: #### B 12FOL, VITAD, PSASC, IRON #### [facility] [address] [place] [address] Dr. Braulio Fritz FOLATE 17.80 ng/mL Normal 8.60-58.90 [facility] Comment on above: Performed By: #### B 12FOL, VITAD, PSASC, IRON #### [facility] [address] [address] [address] Braulio Fritz VITAMIN D 25 OHon 04-10-2022 VIT D 25-OH 50.4 ng/mL Normal [facility] Comment on above: Performed By: #### B 12FOL, VITAD, PSASC, IRON #### [facility] [address] [place] [address] Dr. Braulio Fritz VIT D RANGES SEE BELOW Normal [facility] Comment on above: Result Comment: <20 ng/mL Vit D deficient 20 - <30 ng/mL Vit D insufficient 30 - 100 ng/mL Vit D sufficient >100 ng/mL Potential Toxicity Performed By: #### B 12FOL, VITAD, PSASC, IRON #### [facility] [address] [place] [address] Dr. Braulio Fritz XR CHEST 2 Von [...] by: RJ LEON Date: 2022-04-09 12:41 Normal [facility] SMALL JOINT/BURSA INJECTION AND/OR ASPIRATION: L [...] fashion. The patient was prepped with alcohol. [facility] C REACTIVE PROTEINon 022 CRP [Mass/Vol] 11.2 mg/L High 0-10.0 [facility] Comment on above: Performed By: #### C REACT, ESR #### Testing performed at [place] [id number] ESRon 11-27-2021 ESR (Bld) [Velocity] 27 mm/h High 0-20 [facility] Comment on above: Performed By: #### C REACT, ESR #### Testing performed at [place] [id number] C REACTIVE PROTEINon 021 CRP [Mass/Vol] 6.9 mg/L 0 - 10.0 MG/L [facility] SEDIMENTATION RATE, AUTOMATE Don 10-29-2021 ESR (Bld) [Velocity] 33 mm/h [facility] Interpretation and review of laboratory results Abnormal [facility] CBC, EDIF, PLATELETon 2019 ABSOLUTE BASOPHIL COUNT 0.1 10*3/uL 0 - 0.2 10*3/uL [facility] Basophils/100 WBC (Bld) 0.5 % 0 - 2 % [facility] Differential cell count method Nom (Bld) AUTO DIFF % [facility] Eosinophils (Bld) [#/Vol] 0.00 10*3/uL 0 - 0.7 10*3/uL [facility] Eosinophils/100 WBC (Bld) 0.1 % 0 - 11 % [facility] Erythrocyte distribution width (RBC) [Ratio] 16.4 % High 11.5 - 14.5 % [facility] Hematocrit (Bld) [Volume fraction] 34.0 % Low 42 - 52 % [facility] Hemoglobin (Bld) [Mass/Vol] 10.9 g/dL Low [facility] Interpretation and review of laboratory results Abnormal [facility] Lymphocytes (Bld) [#/Vol] 0.90 10*3/uL Low 1.2 - 3.4 10*3/uL [facility] Lymphocytes/100 WBC (Bld) 6.9 % Low 20 - 55 % [facility] MCH (RBC) [Entitic mass] 27.8 pg 26 - 35 PG [facility] MCHC (RBC) [Mass/Vol] 32.1 g/dL [facility] MCV (RBC) [Entitic vol] 86.4 fL [facility] Monocytes (Bld) [#/Vol] 0.9 10*3/uL High 0 - 0.7 10*3/uL [facility] Monocytes/100 WBC (Bld) 7.1 % 0 - 10 % [facility] Neutrophils (Bld) [#/Vol] 11.2 10*3/uL High 1.4 - 6.5 10*3/uL [facility] Neutrophils/100 WBC (Bld) 85.4 % High 37 - 75 % [facility] Platelet mean volume (Bld) [Entitic vol] 8.1 fL [facility] Platelets (Bld) [#/Vol] 247 10*3/uL 130 - 400 10*3/uL [facility] RBC (Bld) [#/Vol] 3.93 10*6/uL Low 4 - 6.1 10*6/uL [facility] WBC (Bld) [#/Vol] 13.1 10*3/uL High 3.6 - 11 10*3/uL [facility] REPEAT ABO/RH (D) TYPINGon 1 12-29-2019 ABO and Rh group Nom (Bld ) Positive [facility] XR KNEE LEFT 2 VIEWSon 10-28 IMPRESSION: Status p ost total knee arthroplasty revision with expected postoperative changes. [facility] EXAM: XR KNEE LEFT 2 VIEWS HISTORY: [...] the soft tissues with overlying skin elizabeth. [employer] User, Interfaces - 10/28/2020 3:18 PM EST [...] knee arthroplasty revision with expected postoperative changes. [employer] NUC WBC STUDYon 09-24-2020 IMPRESSION: Hyperemi a to the left knee with no definite evidence for infected prosthesis. [employer] NUCLEAR MEDICINE TOT AL BODY BONE SCAN [...] blood cell uptake in the right knee. [employer] User[employer] - 09/24/2020 5:04 PM EST [...] with no definite evidence for infected prosthesis. [employer] NUC 3 PHASE LIMITED BONE SCA Non 09-19-2020 IMPRESSION: Findings concerning for loosening or infection in the medial tibial plateau portion of the left knee prosthesis. No evidence of loosening or infection in the right knee. [employer] [facility] NUCLEAR MEDICINE TRIPLE-PHASE BONE SCAN HISTORY: [...] or delayed uptake in the right knee. [employer] User, [employer]faces - 09/19/2020 2:47 PM EDT [...] loosening or infection in the right knee. [employer] [facility] LARGE JOINT/BURSA INJECTION AND/OR ASPIRATION: Harris crenshaw 09-11-2020 Barak Hebert MD 2:30 PM LARGE [...] complications The patient was prepped with Chloraprep. [facility] CNOVon 02-23-2019 [facility] Office Visit (FARSHAD ) LÓPEZ CORTÉS ([id number]) 1950 M Date Time Provider Department 02/23/19 2:30 PM GADIEL RHODES During your visit today, we recorded the following information about you: Temperature Pulse Respiration Blood pressure 97.4 degrees 69/minute 18/minute 144/87 Weight Height 106.6 kg 1.727 m Gadiel Rhodes MD 02/24/2019 5:45 PM Signed I saw López Suad in my office today for ongoing evaluation [...] local physician and understands to return to [facility] if there is evidence of functional [...] today's CT scan. Referring Provider: GADIEL RHODES [[id number]] Allergies As of Date: 02/23/2019 Noted Allergy [...] Status:Closed by GADIEL RHODES MD on 02/24/[address] [facility] [address] CHEST WO IVCONon 02-24-20 CT CHEST WO IVCON * * *Final Report* * * DATE OF EXAM: Feb 23 2019 12:40PM [facility] 05[facility] - CT CHEST [...] lesion. Upper abdomen: Unchanged. IMPRESSION: STABLE CT. Equipment Validation Specialist: [facility] Transcribe Date/Time: Feb 23 2019 4:08P Dictated by : LAURA DAVIDSON MD This examination was interpreted and the report reviewed and electronically signed by: LAURA DAVIDSON MD on Feb 23 2019 4:30PM EST [id number] Normal [facility] PROGRESSon 02-23-2019 Protein mass conc HNO ID: [id number] Author: Gadiel Rhodes Service: ? Author Type: [...] local physician and understands to return to [facility] if there is evidence of functional decline. No need for additional CT imaging at this time. 2. Lung nodules. 10 mm subpleural nodule incidentally noted on prior chest CT. Has smoking history but discontinued 35 years ago. Nodule now docimented to be stable since 10/2017. No need for additional surveillance. I will see Mr. Cortés back in 6 months. Normal [facility] Protein mass conc HNO ID: [id number] Author: ALEX Kat (Ct) Service: Radiology Author Type: Clinical Fruit Rancher Type: Progress Notes Filed: 02/23/2019 12:42 PM [...] Kat February 23, 2019 12:42 PM Normal [facility] CNOVon 10-16-2018 [facility] Office Visit (PULMMN ) LÓPEZ CORTÉS ([id number]) 1950 M Date Time Provider Department 10/16/18 [...] Diagnosis:Lung nodules [R91.8] Order(s):CT CHEST WO IVCON [[id number]] Order #: [id number] FUTURE Prescriptions as of 10/16/2018 Sig: PANTOPRAZOLE [...] by GADIEL RHODES MD on 10/22/18 Normal [facility] PROGRESSon 10-16-2018 Protein mass conc HNO ID: [id number] Author: Gadiel Rhodes Service: (none) Author Type: [...] Mr. Cortés back in 6 months. 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 There are no occupational exposures. There is [...] No history of dysuria, frequency or incontinence. PRINCIPAL PRODUCT MANAGER: NA MUSCULOSKELETAL: Negative for joint pain or [...] MD 04/16/2018 10:48 PM Signed . [facility] [place] Note Mr. 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 Mold: No significant exposure. [...] reviewed by me Data Reviewed from [facility] (in addition to that noted in HPI, [...] Pre ? ? % ? Date ? 549023 ? Time ?02:22PM ? Height ?169.1 ? [...] management of GERD/heartburn ? Will be seeing draw machine operator (consider nasal probe study/pH study ? Recommend [...] Lisa Hazel MD Internal Medicine PGY-III Pager [phone] Attending Addendum: I have personally interviewed and [...] Rhodes M.D. Chair, Department of Pulmonary Medicine [facility] Referring Provider: SCOTT PEREZ [[id number]] Allergies As of Date: 03/20/2018 Noted Allergy Reaction SULFA (SULFONAMIDE ANTIBIOTICS) 03/20/2018 17 - Unknown Comments: Reaction as a kid - unsure Date Reviewed: 03/20/2018 Reviewed by: Jemal AvilesRn) ANOOP Wilks - Fully Assessed Reason for Visit: Consult [502] Primary Visit Diagnosis:ILD (interstitial lung disease) (HCC) [J84.9] Other Visit Diagnosis:Multiple lung nodules [R91.8] Order(s):SPIROMETRY BASELINE ONLY [[id number]] Order #: [id number] FUTURE LUNG DIFFUSION CAPACITY (DLCO) [[id number]] Order #: [id number] FUTURE Prescriptions as of 03/20/2018 Sig: PANTOPRAZOLE [...] March 20, 2018 Scott Perez MD (via [facility]) Re: López Cortés ( 1950) Dear Dr. 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 There are no occupational exposures. There is [...] No history of dysuria, frequency or incontinence. PRINCIPAL PRODUCT MANAGER: NA MUSCULOSKELETAL: Negative for joint pain or [...] M.D. Chair, Department of Pulmonary Medicine [facility] [place] [facility] Cc: Dr. Tess Fuentes [address] [place] [address] Dr. Francis Giron [address] [place] [id number] Mr. López Cortés [address] [facility] [address] [id number] Encounter Status:Closed by GADIEL RHODES MD on 04/16/18 Normal [facility] PROGRESSon 03-20-2018 Protein mass conc HNO ID: [id number] Author: Gadiel Rhodes Service: (none) Author Type: Physician Type: Progress Notes Filed: 04/16/2018 10:48 PM Note Text: . [facility] [place] Note Mr. 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 Mold: No significant exposure. Tree pollen: No significant exposure. Radiation: No significant exposure. Fumes: No significant exposure. Metal dust: No significant exposure. Beryllium: No significant exposure. Dust: No significant exposure. Pets: Previously, dog Family History: FAMILY HISTORY Problem Relation Age of Onset - Alzheimer's Disease Mother - Alzheimer's Disease Father Allergies: Sulfa (Sulfonamide Antibiotics) Outpatient Medications: pantoprazole (PROTONIX) 40 mg tablet Take 40 mg [...] reviewed by me Data Reviewed from [facility] (in addition to that noted in HPI, [...] Pre ? ? % ? Date ? 375876 ? Time ?02:22PM ? Height ?169.1 ? [...] management of GERD/heartburn ? Will be seeing draw machine operator (consider nasal probe study/pH study ? Recommend [...] Lisa Hazel MD Internal Medicine PGY-III Pager [phone] Attending Addendum: I have personally interviewed and [...] Rhodes M.D. 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 There are no occupational exposures. There is [...] No history of dysuria, frequency or incontinence. PRINCIPAL PRODUCT MANAGER: NA MUSCULOSKELETAL: Negative for joint pain or [...] Mr. Cortés back in 6 months. Normal [facility] CT ABDOMEN PELVIS W IV CONTR [...] by:KENDELL Murrelligned by:Christiano Hansen MD10/25/17Final result Normal [facility] CT CHEST W CONTRASTon 2016 [...] by:KENDELL Murrelligned by:Christiano Hansen MD10/25/17Final result Normal [facility] CBC with Diffon 10-25-2017 Abs. Basophil 0.00 k/uL Normal 0.0-0.2 [facility] Comment on above: Performed By: #### C DP, CP ####[facility] [place] [address] Abs.Neutrophil (Seg) 16.04 k/uL High 1.3-9.1 [facility] Comment on above: Performed By: #### C DP, CP ####[facility] [place] [address] Basophils/100 WBC Auto (Bld) 0 % Normal 0-2 [facility] Comment on above: Performed By: #### C DP, CP ####[facility] [place] [address] Blood morphology Normal Normal [facility] Comment on above: Result Comment: Perf ormed at [facility] [address] [place] [address] Performed By: #### C DP, CP ####[facility] [place] [address] Eosinophils 0.00 10*3/uL Normal 0.0-0.4 [facility] Comment on above: Performed By: #### C DP, CP ####[address] [address] Eosinophils/100 leukocytes 0 % Normal 0-4 [facility] Comment on above: Performed By: #### C DP, CP ####[facility] [place] [address].[place] [address] Lymphocytes 0.96 10*3/uL Low 1.0-4.8 [facility] Comment on above: Performed By: #### C DP, CP ####[facility] [place] [address] Lymphocytes/100 leukocytes 5 % Low 24-44 [facility] Comment on above: Performed By: #### C DP, CP ####[facility] [place] [address] Monocytes 2.10 10*3/uL High 0.1-1.3 [facility] Comment on above: Performed By: #### C DP, CP ####[facility] [place], [place] [address] [place] [address] Monocytes/100 leukocytes 11 % High 1-7 [facility] Comment on above: Performed By: #### C DP, CP ####[facility] [place] [address] Neutrophil (Seg) 84 % High 36-66 [facility] Comment on above: Performed By: #### C DP, CP ####[facility] [place], [place] [address] [place] [address] Erythrocyte distribution width Auto Ratio (RBC) 14.1 % Normal 11.5-14.9 [facility] Comment on above: Performed By: #### C DP, CP ####[facility] [place] [address] [place] [address] Erythrocytes (RBC) 5.37 10*6/uL Normal 4.5-5.9 [facility] Comment on above: Performed By: #### C DP, CP ####[facility] [place] [address] Hematocrit (HCT) 50.7 % Normal 41-53 [facility] Comment on above: Performed By: #### C DP, CP ####[facility] [place], [place] [address] [place] [address] Hemoglobin mass conc (Bld) 16.8 g/dL Normal 13.5-17.5 [facility] Comment on above: Performed By: #### C DP, CP ####[facility] [place] [address] MCH 31.2 pg Normal 26-34 [facility] Comment on above: Performed By: #### C DP, CP ####[facility] [place] [address] MCHC mass conc (RBC) 33.1 g/dL Normal 31-37 [facility] Comment on above: Performed By: #### C DP, CP ####[facility] [place] [address] MCV 94.4 fL Normal 80-100 [facility] Comment on above: Performed By: #### C DP, CP ####[facility] [place] [address] Platelet mean volume (PMV) 9.0 fL Normal 6.0-12.0 [facility] Comment on above: Performed By: #### C DP, CP ####[address] [place] [address] Platelets 227 10*3/uL Normal 150-450 [facility] Comment on above: Performed By: #### C DP, CP ####[facility] [place] [address] WBC (Leukocytes) 19.1 10*3/uL High 3.5-11.0 [facility] Comment on above: Performed By: #### C DP, CP ####[address] [place] [address] Auto Diff Performed NOT REPORTED Normal [facility] Comment on above: Performed By: #### C DP, CP ####[facility] [place] [address] Erythrocyte morphology NOT REPORTED Normal [facility] Comment on above: Performed By: #### C DP, CP ####[address] [facility] [place] [address] Granulocytes/100 WBC (Bld) NOT REPORTED Normal 0.00-0.30 [facility] Comment on above: Performed By: #### C DP, CP ####[facility] [place] [address] Immature granulocytes #/vol (Bld) NOT REPORTED Normal 0 [facility] Comment on above: Performed By: #### C DP, CP ####[address] [address] Platelets NOT REPORTED Normal [facility] Comment on above: Performed By: #### C DP, CP ####[address] [address] WBC Morphology NOT REPORTED Normal [facility] Comment on above: Performed By: #### C DP, CP ####[address] [address] Comp Metabolic Profon 2016 (cont.) Normal [facility] Comment on above: Result Comment: Aver age GFR for 60-69 years old: 85 mL/min/1.73sq mChronic Kidney Disease: <60 mL/min/1.73sq mKidney failure: <15 mL/min/1.73sq meGFR calculated using average adult body mass. Additional eGFR calculator available at:[email or web address] at [facility] [address] [place] [address] Performed By: #### C DP, CP ####[address] [address] Alanine aminotransferase (ALT) 35 U/L Normal 5-41 [facility] Comment on above: Performed By: #### C DP, CP ####[address] [address] Albumin 4.4 g/dL Normal 3.5-5.2 [facility] Comment on above: Performed By: #### C DP, CP ####[facility] [place] [address] Alkaline Phos 128 U/L Normal 40-129 [facility] Comment on above: Performed By: #### C DP, CP ####[address] [address] Anion gap 14 mmol/L Normal 9-17 [facility] Comment on above: Performed By: #### C DP, CP ####[address] [address] Aspartate aminotransferase (AST) 50 U/L High <40 [facility] Comment on above: Performed By: #### C DP, CP ####[address] [address] Bilirubin Ql (U) 1.12 mg/dL Normal 0.3-1.2 [facility] Comment on above: Performed By: #### C DP, CP ####[address] [address] Calcium 9.2 mg/dL Normal 8.6-10.4 [facility] Comment on above: Performed By: #### C DP, CP ####[address] [address] Chloride 107 mmol/L Normal 98-107 [facility] Comment on above: Performed By: #### C DP, CP ####[address] [address] CO2 23 mmol/L Normal 20-31 [facility] Comment on above: Performed By: #### C DP, CP ####[address] [address] Creatinine 1.30 mg/dL High 0.70-1.20 [facility] Comment on above: Performed By: #### C DP, CP ####[facility] [place] [address] eGFR (non-black) 55 mL/min/{1.73_m2} Low >60 [facility] Comment on above: Performed By: #### C DP, CP ####[facility] [place] [address] [place] [address] eGFR (non-black) mL/min/{1.73_m2} Normal >60 [place] Comment on above: Performed By: #### C DP, CP ####[facility] [place] [address] Glucose mass conc 111 mg/dL High 70-99 [facility] Comment on above: Performed By: #### C DP, CP ####[facility] [facility] [place] [address] Potassium molar conc 4.3 mmol/L Normal 3.7-5.3 [facility] Comment on above: Performed By: #### C DP, CP ####[facility] [place] [address].[place] [address] Protein 7.3 g/dL Normal 6.4-8.3 [facility] Comment on above: Performed By: #### C DP, CP ####[facility] [place] [address].[place] [address] Sodium 144 mmol/L Normal 135-144 [facility] Comment on above: Performed By: #### C DP, CP ####[facility] [place] [address].[place] [address] Urea nitrogen 24 mg/dL High 8-23 [facility] Comment on above: Performed By: #### C DP, CP ####[facility] [facility] [place] [address] Albumin/Globulin Ratio NOT REPORTED Normal 1.0-2.5 [facility] Comment on above: Performed By: #### C DP, CP ####[facility] [facility] [place] [address] BUN/CRE Ratio NOT REPORTED Normal 9-20 [facility] Comment on above: Performed By: #### C DP, CP ####[facility] [facility] [place] [address] Staging: NOT REPORTED Normal [facility] Comment on above: Performed By: #### C DP, CP ####[facility] [facility] [place] [address] Vital Signs Date Time Vital Sign Value Performing Clinician Facility 05-02-2025 10:55-0400 Body height 172.7 cm Fidelina Albarado MD Work Phone: [facility] 05-02-2025 10:55-0400 Body mass index (BMI) [Ratio] 34.21 kg/m2 Fidelina Albarado MD Work Phone: [facility] 05-02-2025 10:55-0400 Body weight 102.06 kg Fidelina Albarado MD Work Phone: [facility] 05-02-2025 10:55-0400 Diastolic blood pressure 68 mm[Hg] Fidelina Albarado MD Work Phone: [facility] 05-02-2025 10:55-0400 Heart rate 72 /min Fidelina Albarado MD Work Phone: [facility] 05-02-2025 10:55-0400 Systolic blood pressure 104 mm[Hg] Fidelina Albarado MD Work Phone: [facility] 04-18-2025 09:09-0400 Diastolic blood pressure 82 mm[Hg] Tess Fuentes MD Work Phone: [facility] 04-18-2025 09:09-0400 Heart rate 60 /min Tess Fuentes MD Work Phone: [facility] 04-18-2025 09:09-0400 Systolic blood pressure 132 mm[Hg] Tess Fuentes MD Work Phone: [facility] 03-18-2025 09:28-0400 Body height 172.7 cm Adrien Foley ELECTRONIC SECURITY SPECIALIST-INTELLECTUAL PROPERTY COUNSEL Work Phone: [facility] 03-18-2025 09:28-0400 Body mass index (BMI) [Ratio] 35.79 kg/m2 Adrien Foley ELECTRONIC SECURITY SPECIALIST-INTELLECTUAL PROPERTY COUNSEL Work Phone: [facility] 03-18-2025 09:28-0400 Body weight 106.78 kg Adrien Foley ELECTRONIC SECURITY SPECIALIST-INTELLECTUAL PROPERTY COUNSEL Work Phone: [facility] 03-18-2025 09:28-0400 Diastolic blood pressure 78 mm[Hg] Adrien Foley ELECTRONIC SECURITY SPECIALIST-INTELLECTUAL PROPERTY COUNSEL Work Phone: [facility] 03-18-2025 09:28-0400 Heart rate 70 /min Adrien Foley ELECTRONIC SECURITY SPECIALIST-INTELLECTUAL PROPERTY COUNSEL Work Phone: [facility] 03-18-2025 09:28-0400 Systolic blood pressure 120 mm[Hg] Adrien Foley ELECTRONIC SECURITY SPECIALIST-INTELLECTUAL PROPERTY COUNSEL Work Phone: [facility] 08-14-2024 14:41-0400 Diastolic blood pressure 80 mm[Hg] Obey ALAS [facility] 08-14-2024 14:41-0400 Heart rate 68 /min Obey ALAS [facility] 08-14-2024 14:41-0400 Respiratory rate 16 /min Obey ALAS [facility] 08-14-2024 14:41-0400 Systolic blood pressure 118 mm[Hg] Obey NILL [facility] 01-31-2024 08:42-0400 Blood Pressure Location Obey NILL [facility] 01-31-2024 08:42-0400 Diastolic blood pressure 82 mm[Hg] Obey NILL [facility] [place] 01-31-2024 08:42-0400 Heart rate 83 /min Obey NILL [facility] 01-31-2024 08:42-0400 Respiratory rate 16 /min Obey NILL [facility] 01-31-2024 08:42-0400 Systolic blood pressure 120 mm[Hg] Obey NILL [facility] 11-23-2023 08:25-0500 Body height 172.7 cm Bhavana Addison ELECTRONIC SECURITY SPECIALIST-INTELLECTUAL PROPERTY COUNSEL Work Phone: [facility] 11-23-2023 08:25-0500 Body mass index (BMI) [Ratio] 34.21 kg/m2 Bhavana Nila ELECTRONIC SECURITY SPECIALIST-INTELLECTUAL PROPERTY COUNSEL Work Phone: [facility] 11-23-2023 08:25-0500 Body weight 102.06 kg Bhavana Nila ELECTRONIC SECURITY SPECIALIST-INTELLECTUAL PROPERTY COUNSEL Work Phone: [facility] 05-16-2023 09:32-0400 Blood Pressure Location Darwin RICHMOND [facility] 05-16-2023 09:32-0400 Diastolic blood pressure 75 mm[Hg] Darwin RCIHMOND [facility] 05-16-2023 09:32-0400 Heart rate 75 /min Darwin RICHMOND [facility] 05-16-2023 09:32-0400 Respiratory rate 16 /min Darwin RICHMOND [facility] 05-16-2023 09:32-0400 Systolic blood pressure 129 mm[Hg] Darwin RICHMOND [facility] 06-16-2022 10:13-0400 Body height 172.7 cm Barak Hebert MD Work Phone: [facility] 06-16-2022 10:13-0400 Body mass index (BMI) [Ratio] 35.28 kg/m2 Barak Hebert MD Work Phone: [facility] 06-16-2022 10:13-0400 Body weight 105.23 kg Barak Hebert MD Work Phone: [facility] 05-26-2022 07:57-0400 Body height 172.7 cm Gadiel Floyd MD Work Phone: [facility] 05-26-2022 07:57-0400 Body mass index (BMI) [Ratio] 35.28 kg/m2 Gadiel Floyd MD Work Phone: [facility] 05-26-2022 07:57-0400 Body temperature 97.7 [degF] Gadiel Floyd MD Work Phone: [facility] 05-26-2022 07:57-0400 Body weight 105.23 kg Gadiel Floyd MD Work Phone: [facility] 02-17-2022 12:58-0400 Body height 172.7 cm Gadiel Floyd MD Work Phone: [facility] 02-17-2022 12:58-0400 Body mass index (BMI) [Ratio] 36.81 kg/m2 Gadiel Floyd MD Work Phone: [facility] 02-17-2022 12:58-0400 Body temperature 98.2 [degF] Gadiel Floyd MD Work Phone: [facility] 02-17-2022 12:58-0400 Body weight 109.8 kg Gadiel Floyd MD Work Phone: [facility] 10-29-2021 11:09-0500 Body height 172.7 cm Bhavana Addison ELECTRONIC SECURITY SPECIALIST-INTELLECTUAL PROPERTY COUNSEL Work Phone: [facility] 10-29-2021 11:09-0500 Body mass index (BMI) [Ratio] 36.49 kg/m2 Bhavana Addison ELECTRONIC SECURITY SPECIALIST-INTELLECTUAL PROPERTY COUNSEL Work Phone: [facility] 10-29-2021 11:09-0500 Body temperature 97.2 [degF] Bhavana Addison ELECTRONIC SECURITY SPECIALIST-INTELLECTUAL PROPERTY COUNSEL Work Phone: [facility] 10-29-2021 11:09-0500 Body weight 108.86 kg Bhavana Nila ELECTRONIC SECURITY SPECIALIST-INTELLECTUAL PROPERTY COUNSEL Work Phone: [facility] 11-19-2020 11:08-0500 BMI (Body Mass Index) 34.21 kg/m2 [facility] 11-19-2020 11:08-0500 Body Temperature 97.59 [degF] [facility] 11-19-2020 11:08-0500 Body weight 102.06 kg [facility] 11-19-2020 11:08-0500 Height 172.7 cm [facility] 10-29-2020 15:11-0500 BP Diastolic 72 mm[Hg] [facility] 10-29-2020 15:11-0500 BP Systolic 148 mm[Hg] [facility] 10-29-2020 15:11-0500 Pulse (Heart Rate) 74 /min [facility] 10-29-2020 15:11-0500 Pulse Oximetry 100 % [facility] 10-29-2020 15:11-0500 Respiratory Rate 16 /min [facility] 10-29-2020 08:00-0500 Body Temperature 97.39 [degF] [facility] 10-28-2020 15:15-0500 BMI (Body Mass Index) 32.23 kg/m2 [facility] 10-28-2020 15:15-0500 Body weight 96.16 kg [facility] 10-28-2020 15:15-0500 Height 172.7 cm [facility] 09-11-2020 13:55-0400 BMI (Body Mass Index) 31.96 kg/m2 [facility] 09-11-2020 13:55-0400 Body Temperature 97.11 [degF] [facility] 09-11-2020 13:55-0400 Body weight 95.35 kg [facility] 09-11-2020 13:55-0400 Height 172.7 cm [facility] Encounters Encounter Date Encounter Type Care Provider Facility Start: 05-07-2025 ambulatory Obey ALAS Facility :[facility] Start: 05-02-2025 End: 05-02-2025 Office outpatient visit 25 minutes Fidelina Albarado MD Work Phone: [facility] Comment on above: Paroxysmal atrial fi brillation (Multi); High risk medication use; Encounter to discuss test results; Essential hypertension; Mixed hyperlipidemia; BMI 34.0-34.9,adult; Former smoker Start: 04-18-2025 Non-patient / Non-visit Bella Fuentes MD Work Phone: [facility] Work Phone: Start: 04-18-2025 End: 04-18-2025 Patient encounter procedure eTss Fuentes MD Work Phone: [facility] Work Phone: Start: 04-18-2025 End: 04-18-2025 ambulatory Tess Fuentes MD Work Phone: [facility] Work Phone: Start: 03-26-2025 End: 03-26-2025 Patient encounter procedure Tess Fuentes MD Work Phone: [facility] [place] Work Phone: Start: 03-26-2025 End: 03-26-2025 ambulatory Tess Fuentes MD Work Phone: [facility] Work Phone: Start: 03-18-2025 End: 03-18-2025 Office consultation new/estab patient 60 min Adrien Foley ELECTRONIC SECURITY SPECIALIST-INTELLECTUAL PROPERTY COUNSEL Work Phone: [facility] Comment on above: Dyspnea on exertion (Primary Dx); Palpitations; Abnormal EKG; Other fatigue; BMI 35.0-35.9,adult; Mixed hyperlipidemia; Essential hypertension Start: 03-18-2025 End: 03-18-2025 ambulatory ADRIEN Ramirez [facility] Start: 10-23-2024 End: 10-23-2024 ambulatory Obey ALAS Facility:[facility] Start: 10-23-2024 End: 10-23-2024 Patient encounter procedure Obey ALAS [facility] Start: 09-18-2024 End: 09-18-2024 ambulatory Obey R NILHarris Facility: [place] Start: 09-18-2024 End: 09-18-2024 [facility] Start: 09-14-2024 ambulatory Obey R NILL Facility :[facility] [place] Start: 08-29-2024 End: 08-29-2024 ambulatory Obey Alas [facility] Work Phone: Start: 08-29-2024 End: 08-29-2024 Departed Referred MD Obey Alas Work Phone: [facility] Path [facility] [place] [facility] Start: 08-29-2024 End: 08-29-2024 ambulatory Obey R NILL Facility:CD:[id number] Start: 08-14-2024 End: 08-14-2024 ambulatory [facility] Start: 08-14-2024 End: 08-14-2024 Patient encounter procedure Obey ALAS [facility] [place] Start: 06-05-2024 End: 06-05-2024 ambulatory SOLOMON IGNACIO Not Available Start: 03-06-2024 End: 03-06-2024 Patient encounter procedure Obey ALAS [facility] [place] Start: 02-28-2024 End: 02-28-2024 ambulatory MD Obey Alas Work Phone: [facility] Work Phone: Start: 02-28-2024 End: 02-28-2024 Departed Referred MD Obey Alas Work Phone: [facility] [place] [facility] Start: 02-28-2024 End: 02-28-2024 Patient encounter procedure Obey ALAS [facility] [place]/Said [place] Start: 01-31-2024 End: 01-31-2024 Patient encounter procedure Obey ALAS [facility] [place] Start: 11-23-2023 End: 11-23-2023 Office outpatient visit 15 minutes Bhavana Addison APRN-INTELLECTUAL PROPERTY COUNSEL Work Phone: [facility] Comment on above: Hx of total knee art hroplasty, left (Primary Dx) Start: 11-23-2023 End: 11-23-2023 Subsequent hospital visit by physician Bhavana Addison APRN-INTELLECTUAL PROPERTY COUNSEL Work Phone: [facility] Start: 05-16-2023 End: 05-16-2023 Patient encounter procedure Darwin RICHMOND [facility] Start: 01-27-2023 End: 01-28-[address] TESS FUENTES . 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 Facility:[facility] Start: 04-13-2022 End: 04-14-[address] TESS FUENTES . Facility:[facility] Start: 04-10-2022 End: 04-11-[address] TESS FUENTES . Facility:[facility] Start: 04-09-2022 End: 04-10-[address] TESS FUENTES . Facility:[facility] Start: 02-17-2022 ambulatory TESS FUENTES [facility] Start: 02-17-2022 End: 02-17-2022 Office outpatient new 30 minutes Gadiel Floyd MD Work Phone: [facility] Comment on above: Bilateral thumb pain (Primary Dx); Primary osteoarthritis of first carpometacarpal joint of left hand Start: 02-17-2022 End: 02-17-2022 Subsequent hospital visit by physician Gadiel Floyd MD Work Phone: [facility] Start: 12-17-2021 ambulatory BARAK HEBERT [facility] Start: 12-17-2021 End: 12-17-2021 Office outpatient visit 15 minutes Barak Hebert MD Work Phone: [facility] Comment on above: Bilateral thumb pain (Primary Dx); Left knee pain, unspecified chronicity Start: 11-27-2021 ambulatory BHAVANA ADDISON [facility] Start: 10-29-2021 End: 10-29-2021 Postop follow up visit related to original px Barak Hebert MD Work Phone: [facility] Comment on above: Hx of total knee art hroplasty, left (Primary Dx) Start: 10-29-2021 End: 10-29-2021 Subsequent hospital visit by physician Bhavana FLORES Work Phone: [facility] Start: 02-26-2021 End: 02-26-2021 Subsequent hospital visit by physician Barak Hebert Work Phone: [facility] Start: 11-19-2020 End: 11-19-2020 Postop follow up visit related to original px Kaila Richmond Work Phone: [facility] Comment on above: Hx of total knee art hroplasty, left (Primary Dx); Postoperative pain of knee Start: 11-19-2020 End: 11-19-2020 Subsequent hospital visit by physician Kaila Richmond Work Phone: [facility] Start: 10-28-2020 End: 10-29-2020 Evaluation and management of inpatient Barak Hebert Work Phone: [facility] Comment on above: Mechanical loosening of internal left knee prosthetic joint Start: 09-24-2020 End: 09-24-2020 Subsequent hospital visit by physician Barak Hebert Work Phone: [facility] Comment on above: Arrived Start: 09-23-2020 End: 09-23-2020 Subsequent hospital visit by physician Barak Hebert Work Phone: [facility] Comment on above: Arrived Start: 09-19-2020 End: 09-19-2020 Subsequent hospital visit by physician Barak Hebert Work Phone: [facility] Comment on above: Arrived Start: 09-11-2020 End: 09-11-2020 Subsequent hospital visit by physician Barak Hebert Work Phone: [facility] Start: 09-11-2020 End: 09-11-2020 Office outpatient new 45 minutes Barak Hebert Work Phone: [facility] Comment on above: Left knee pain, unsp ecified chronicity (Primary Dx); Pain in prosthetic joint, initial encounter Start: 02-23-2019 End: 02-26-2019 Patient encounter procedure GADIEL RHODES [facility] Start: 10-16-2018 End: 10-23-2018 Patient encounter procedure GADIEL RHODES [facility] Start: 03-20-2018 End: 04-19-2018 Patient encounter procedure GADIEL RHODES [facility] Start: 11-23-2017 End: 11-24-2017 Ambulatory DEFAULT PHYSICIAN Facility:[facility] Start: 10-25-2017 End: 10-26-2017 Emergency department patient visit ROBERTO [facility] Procedures Date Procedure Procedure Detail Performing Clinician Start: 03-18-2025 Ecg routine ecg w/le ast 12 lds w/i&r Adrien Foley ELECTRONIC SECURITY SPECIALIST-INTELLECTUAL PROPERTY COUNSEL Work Phone: Start: 08-29-2024 Excisional biopsy of basal cell carcinoma Obey ALAS Start: 02-28-2024 Excision of basal ce ll carcinoma Obey ALAS Start: 01-27-[address] BELLA FUENTES . Comment on above: Performed By: #### P SASC, VITAD #### [facility] [address] [address] [address] Braulio Fritz Start: 04-10-[address] BELLA FUENTES . Comment on above: Performed By: #### B 12FOL, VITAD, PSASC, IRON #### [facility] [id number] Braulio Fritz Start: 02-17-2022 Arthrocentesis aspir &/inj small jt/bursa w/o us Irene Parker Start: 10-29-2020 Complete blood count with white cell differential, automated Bhavana Nila Work Phone: Start: 10-28-2020 X-ray of left knee Bhavana Addison Work Phone: Start: 10-28-2020 End: 10-28-2020 Cul bact roberto aerobic isol xcpt ur blood/stool Barak [employer] Phone: Start: 10-28-2020 End: 10-28-2020 Culture bacterial any source anaerobic iso&id [employer] Phone: Start: 10-28-2020 End: 10-28-2020 Fungus identified in Unspecified specimen by Culture [employer] Phone: Start: 10-28-2020 End: 10-28-2020 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 specific culture [employer] Phone: Start: 10-28-2020 Bacteria identified in Body fluid by Culture [employer] Phone: Start: 10-28-2020 End: 10-28-2020 Revj tot knee arthrp fem&entire tibial compone [employer] Phone: Start: 10-28-2020 Blood group typing, RH phenotyping [employer] Phone: Start: 09-24-2020 Nuclear medicine procedure [employer] Phone: Start: 09-19-2020 Radioisotope scan of bone Bhavana Addison Work Phone: Start: 09-11-2020 Intra-articular injection Barak [employer] Phone: Start: 04-26-2019 Arthroscopic knee operation Darwin RICHMOND Start: 10-25-2017 Ct abdomen & pelvis w/contrast material ROBERTO GRUBER Start: 10-25-2017 Ct thorax w/contrast material ROBERTO GRUBER Start: 10-25-2017 CBC WITH AUTO DIFFERENTIAL ROBERTO GRUBER Start: 10-25-2017 COMPREHENSIVE METABO LIC PANEL ROBERTO GRUBER Start: 10-25-2017 EKG 12-LEAD ROBERTO MCNULTY ER Start: 11-21-2015 Colonoscopy Obey RFEED LL Arthroplasty of knee Darwin RICHMOND Arthroplasty of knee Obey VALLESL Repair of meniscus Obey WOODS Revision of knee arthroplasty Obey VALLESHarris Plan of Treatment Date Care Activity Detail Author Start: 09-23-2034 DTaP/Tdap/Td Vaccines (2 - Td or Tdap) DTaP/Tdap/Td Vaccines (2 - Td or Tdap) [facility] Start: 01-07-2026 End: 01-07-2026 Patient encounter procedure 01/07/2026 8:40 AM EST Office Visit [place] [address] [place] [address] Fidelina Albarado MD [address] [facility] [address] [place] [address] [facility] Start: 05-09-2025 End: 05-02-2026 ECG 12 Lead ECG 12 Lead ECG Routine Paroxysmal atrial fibrillation (Multi) Expected: 05/09/2025 (Approximate), Expires: 05/02/2026 [facility] Service Area Work Phone: Comment on above: Expected: 05/09/2025 (Approximate), Expi res: 05/02/2026 Start: 05-09-2025 End: 05-09-2025 Professional / ancillary services management 05/09/2025 10:00 AM EDT Ancillary Procedure [place] [address] [place] [address] [facility] Start: 05-02-2025 End: 05-02-2025 Patient encounter procedure 05/02/2025 11:30 AM EDT Office Visit [place] [address] [place] [address] Fidelina Albarado MD [address] [facility] [address] [place] [address] [facility] Start: 04-18-2025 Radionuclide myocardial perfusion stress study NM katya perf SPECT rest & str [facility] Start: 04-18-2025 SPECT Heart perfusion at rest and W stress and W radionuclide IV [facility] Start: 03-26-2025 End: 03-26-2025 Professional / ancillary services management 03/26/2025 8:00 AM EDT Ancillary Procedure [facility] [address] [place] [id number] [facility] Start: 03-18-2025 End: 03-18-2026 Alanine aminotransferase [Enzymatic activity/volume] in Serum or Plasma by With P-5'-P Alanine Aminotransferase Lab Routine Dyspnea on exertion Other fatigue Expected: 03/18/2025 (Approximate), Expires: 03/18/2026 [facility] Work Phone: Comment on above: Expected: 03/18/2025 (Approximate), Expi res: 03/18/2026 Start: 03-18-2025 End: 03-18-2026 Aspartate aminotransferase [Enzymatic activity/volume] in Serum or Plasma by With P-5'-P Aspartate Aminotransferase Lab Routine Dyspnea on exertion Other fatigue Expected: 03/18/2025 (Approximate), Expires: 03/18/2026 [facility] Work Phone: Comment on above: Expected: 03/18/2025 (Approximate), Expi res: 03/18/2026 Start: 03-18-2025 End: 03-18-2026 Basic metabolic 2000 panel - Serum or Plasma Basic Metabolic Panel Lab Routine Dyspnea on exertion Other fatigue Expected: 03/18/2025 (Approximate), Expires: 03/18/2026 [facility] Work Phone: Comment on above: Expected: 03/18/2025 (Approximate), Expi res: 03/18/2026 Start: 03-18-2025 End: 03-18-2026 CBC panel - Blood by Automated count CBC Lab Routine Dyspnea on exertion Other fatigue Expected: 03/18/2025 (Approximate), Expires: 03/18/2026 [facility] Work Phone: Comment on above: Expected: 03/18/2025 (Approximate), Expi res: 03/18/2026 Start: 03-18-2025 End: 03-18-2026 Holter monitor study Holter Or Event [employer] Routine Palpitations Expected: 03/18/2025 (Approximate), Expires: 03/18/2026 [facility] Work Phone: Comment on above: Expected: 03/18/2025 (Approximate), Expi res: 03/18/2026 Start: 03-18-2025 End: 03-18-2026 Lipid 1996 panel - Serum or Plasma Lipid Panel Lab Routine Dyspnea on exertion Palpitations Abnormal EKG Other fatigue Mixed hyperlipidemia Expected: 03/18/2025 (Approximate), Expires: 03/18/2026 [facility] Work Phone: Comment on above: Expected: 03/18/2025 (Approximate), Expi res: 03/18/2026 Start: 03-18-2025 End: 03-18-2026 NM Heart Perfusion W stress and W radionuclide IV Nuclear Stress Test Cardiac Nuclear Medicine Routine Dyspnea on exertion Palpitations Abnormal EKG Expected: 03/18/2025 (Approximate), Expires: 03/18/2026 [facility] Work Phone: Comment on above: Expected: 03/18/2025 (Approximate), Expi res: 03/18/2026 Start: 03-18-2025 End: 03-18-2027 Heart Transthoracic Transthoracic Echo Complete Echocardiography Routine Dyspnea on exertion Palpitations Expected: 03/18/2025 (Approximate), Expires: 03/18/2027 [facility] Service Area Work Phone: Comment on above: Expected: 03/18/2025 (Approximate), Expi res: 03/18/2027 Start: 08-29-2024 [facility] Start: 07-22-2024 COVID-19 Vaccine ( season) COVID-19 Vaccine ( season) [facility] Start: 07-22-2023 Influenza vaccination INFLUENZA VACCINE (#1) [facility] Start: 08-25-2022 End: 08-25-2022 Patient encounter procedure 08/25/2022 Office Visit Orthopaedics Gadiel Floyd MD [address] [place] [address] [facility] Start: 07-22-2022 Influenza vaccination INFLUENZA VACCINE (#1) [facility] Start: 06-16-2022 End: 06-16-2022 Patient encounter procedure 06/16/2022 Office Visit Orthopaedics Barak Hebert MD [address] [place] [address] [facility] Start: 05-26-2022 End: 05-26-2022 Patient encounter procedure 05/26/2022 Office Visit Orthopaedics Gadiel Floyd MD [address] [place] [address] [facility] Start: 04-19-2022 COVID-19 VACCINE (2 - Pfizer series) COVID-19 VACCINE (2 - Pfizer series) [facility] Start: 02-17-2022 End: 02-11-2023 XR Thumb - left [facility] Work Phone: Comment on above: 1 Occurrences starting 02/17/2022 until 02/17/2022 Expected: 02/17/2022 , Expires: 02/11/2023 Start: 02-17-2022 End: 02-11-2023 XR Thumb - right Views [facility] Work Phone: Comment on above: 1 Occurrences starting 02/17/2022 until 02/17/2022 Expected: 02/17/2022 , Expires: 02/11/2023 Start: 02-17-2022 End: 02-17-2022 Patient encounter procedure 02/17/2022 Office Visit Orthopaedics Gadiel Floyd MD [address] [place] [address] [facility] Start: 10-29-2021 End: 10-29-2021 Office Visit 10/29/2021 Office Visit Orthopaedics Bhavana Addison, ELECTRONIC SECURITY SPECIALIST-INTELLECTUAL PROPERTY COUNSEL [address] [place] [address] [phone] [facility] Start: 10-02-2021 Diabetes mellitus screening Diabetes Screening [facility] Start: 07-22-2021 Influenza vaccination [facility] Start: 02-19-2021 End: 02-19-2021 Office Visit 02/19/2021 Office Visit Orthopaedics Barak Hebert MD [address] [place] [address] [phone] [facility] Start: 11-19-2020 End: 11-19-2020 Office Visit 11/19/2020 Office Visit Orthopaedics Kaila Richmond, PAShyannC [address] [place] [address] [phone] [facility] Start: 10-28-2020 End: 10-28-2020 Hospital Encounter [facility] Comment on above: 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, initial encounter REVISION ARTHROPLAST Y KNEE left Start: 10-02-2020 End: 10-02-2020 Pre-Operative Nurse Assessment 10/02/2020 Pre-Operative Nurse Assessment Internal Medicine [facility] Pre Admission Start: 09-24-2020 Hospital Encounter 09/24/2020 Hospital Encounter Nuclear Medicine Barak Hebert MD [address] [place] [address] [phone] [facility] Start: 09-23-2020 End: 09-23-2020 Appointment 09/23/2020 Appointment Nuclear Medicine Barak Hebert MD [address] [place] [address] [phone] [facility] Start: 09-19-2020 End: 09-19-2020 Hospital Encounter [facility] Start: 09-11-2020 End: 09-11-2021 Nuclear medicine imaging procedure NUC BONE MARROW LIMITED AREA Imaging Routine Pain in prosthetic joint, initial encounter Expected: 09/11/2020, Expires: 09/11/2021 [facility] Comment on above: Expected: 09/11/2020, Expires: Start: 09-11-2020 End: 09-11-2021 Nuclear medicine procedure NUC WBC STUDY Imaging Routine Pain in prosthetic joint, initial encounter Expected: 09/11/2020, Expires: 09/11/2021 [facility] [employer] Comment on above: Expected: 09/11/2020, Expires: 1 Start: 09-11-2020 End: 09-11-2021 Radioisotope scan of bone NUC BONE SCAN WHOLE BODY Imaging Routine Pain in prosthetic joint, initial encounter Expected: 09/11/2020, Expires: 09/11/2021 [facility] [employer] Comment on above: Expected: 09/11/2020, Expires: 1 Start: 08-21-2018 [facility] Start: 01-25-2016 Abdominal aortic aneurysm screening [facility] [employer] Start: 01-25-2016 Pneumococcal vaccination [facility] Start: 2011 RSV High Risk: (Elderly (60+) or Population) (1 - Risk 60-74 years 1-dose series) RSV High Risk: (Elderly (60+) or Population) (1 - Risk 60-74 years 1-dose series) [facility] Start: 2001 Colonoscopy COLORECTAL CANCER SCREENING DISCUSSION [facility] Start: 2001 Prostate specific antigen measurement PROSTATE CANCER SCREENING DISCUSSION [facility] Start: 2001 Zoster vaccine hzv live for subcutaneous use ZOSTER (SHINGLES) VACCINE (1 of 2) [facility] Start: 2001 Zoster Vaccines (1 of 2) Zoster Vaccines (1 of 2) [facility] Start: 01-25-1996 Colonoscopy COLORECTAL CANCER SCREENING DISCUSSION [facility] Start: 01-25-1996 Screening for malignant neoplasm of colon COLORECTAL CANCER SCREENING DISCUSSION [facility] [employer] [facility] Start: 1991 Fasting lipid [facility]ING [facility] Start: 1991 Lipid panel LIPID SCREENING [facility] Start: 1970 Pneumococcal vaccination Pneumococcal Vaccine (1 of 2 - PCV) [facility] Start: 1970 Third diphtheria, tetanus and acellular pertussis (DTaP) vaccination TDAP (ADULT) [facility] Start: 1969 Hepatitis C screening Hepatitis C Screening [facility] Start: 1969 Tetanus vaccination TETANUS [facility] Start: 1967 COVID-19 VACCINE (1) [facility] ([facility] Start: 1963 COVID-19 VACCINE (1) COVID-19 VACCINE (1) [facility] Start: 01-25-1956 COVID-19 VACCINE (1) COVID-19 VACCINE (1) [facility] Start: 1951 Hepatitis C antibody, confirmatory test HEPATITIS C VIRUS SCREENING [facility] Start: 1951 Hepatitis C screening HEPATITIS C VIRUS SCREENING [facility] Start: 1951 Lipid panel Lipid Panel [facility] Start: 1951 Medicare Annual Wellness Visit Medicare Annual Wellness Visit (AWV) [facility] Start: 1950 Screening for malignant neoplasm of colon [facility] Start: 1951 Tetanus vaccination TETANUS [facility] ANAEROBE CULTURE [facility] Comment on above: Release Upon Ordering for 1 Occurrences starting 10/28/2020 Bacteria identified Cx Nom (Body fld) BODY FLUID CULTURE AND DIRECT SMEAR Microbiology Routine 10/28/2020 12:35 PM EST [facility] Bacteria identified Cx Nom (Unsp spec) BACTERIAL CULTURE AND DIRECT SMEAR, LESION, TISSUE, DEVICE Microbiology Routine Mechanical loosening of internal left knee prosthetic joint, initial encounter Release Upon Ordering for 1 Occurrences starting 10/28/2020 [facility] Comment on above: Release Upon Ordering for 1 Occurrences starting 10/28/2020 ECG 12 Lead ECG 12 Lead ECG Routine Dyspnea on exertion 03/18/2025 9:30 AM EDT [facility] Work Phone: Fungus identified Cx Nom (Unsp spec) [facility] Comment on above: Release Upon Ordering for 1 Occurrences starting 10/28/2020 Mycobacterium sp identified Org specific cx Nom (Tiss) ACID FAST CULTURE, TISSUE Microbiology Routine Mechanical loosening of internal left knee prosthetic joint, initial encounter Release Upon Ordering for 1 Occurrences starting 10/28/2020 [facility] [employer] [facility] Comment on above: Release Upon Ordering for 1 Occurrences starting 10/28/2020 Mycobacterium sp identified Org specific cx Nom (Unsp spec) [facility] [employer] [facility] End: 09-23-2020 Nuclear medicine imaging procedure NUC BONE MARROW LIMITED AREA Imaging Routine Pain in prosthetic joint, initial encounter 1 Occurrences starting 09/23/2020 until 09/23/2020 [facility] Comment on above: 1 Occurrences starting 09/23/2020 until 09/23/2020 Nuclear medicine marycarmen ging procedure NUC BONE MARROW LIMITED AREA Imaging Routine Pain in prosthetic joint, initial encounter 09/23/2020 12:09 PM EST [employer] End: 09-23-2020 Nuclear medicine procedure NUC WBC STUDY Imaging Routine Pain in prosthetic joint, initial encounter 1 Occurrences starting 09/23/2020 until 09/23/2020 [employer] [facility] Comment on above: 1 Occurrences starting 09/23/2020 until 09/23/2020 Nuclear medicine procedure NUC WBC STUDY Imaging Routine Pain in prosthetic joint, initial encounter 09/23/2020 6:01 AM [facility] [employer] Radiography for bone length studies [employer] [facility]ULTURE [facility] X-ray of left knee [facility] X-ray of left knee XR KNEE LEFT 3 VIEWS Imaging Routine Hx of total knee arthroplasty, left 10/29/2021 10:55 AM EST [employer] [facility] XR Knee - left 3 Views XR KNEE L EFT 3 VIEWS Imaging Routine History of revision of total replacement of left knee joint 06/16/2022 9:41 AM EDT [employer] XR Knee - left 3 Views XR KNEE L EFT 3 VIEWS Imaging Routine Hx of total knee arthroplasty, left 11/23/2023 8:19 AM [facility] [employer] Immunizations Immunization Date Immunization Notes Care Provider Marce vargas 09-23-2024 tetanus toxoid, redu sahil diphtheria toxoid, and acellular pertussis vaccine, adsorbed Fidelina Albarado MD Work Phone: [facility] 09-21-2024 influenza, seasonal, injectable Adrien Foley ELECTRONIC SECURITY SPECIALIST-INTELLECTUAL PROPERTY COUNSEL Work Phone: [facility] Work Phone: 08-21-2023 influenza virus vacc ine, unspecified formulation [facility] [place] 09-24-2022 SARS-CoV-2 (COVID-19 ) [id number] Darwin RICHMOND [facility] 08-31-2022 influenza virus vacc ine, unspecified formulation Darwin RICHMOND [facility] 03-29-2022 SARS-CoV-2 mRNA ([id number]-[id number] e) vaccine Darwin RICHMOND [facility] 09-21-2021 SARS-CoV-2 (COVID-19 ) Ad26 vaccine, recombinant Darwin RICHMOND [facility] 09-13-2021 SARS-CoV-2 (COVID-19 ) mRNA-1273 vaccine Darwin RICHMOND [facility] 02-19-2021 SARS-CoV-2 (COVID-19 ) Ad26 vaccine, recombinant Darwin RICHMOND [facility] 02-04-2021 SARS-CoV-2 (COVID-19 ) mRNA-1273 vaccine Darwin RICHMOND [facility] 01-19-2021 SARS-CoV-2 (COVID-19 ) Ad26 vaccine, recombinant Darwin RICHMOND [facility] 01-07-2021 SARS-CoV-2 (COVID-19 ) mRNA-1273 vaccine Darwin RICHMOND [facility] 09-03-2020 influenza virus vacc ine, unspecified formulation Bhavana Addison APRNINTELLECTUAL PROPERTY COUNSEL Work Phone: [facility] 09-04-2019 influenza virus vacc ine, unspecified formulation Darwin RICHMOND [facility] 08-22-2018 influenza virus vacc ine, unspecified formulation Darwin RICHMOND [facility] 08-24-2017 influenza virus vacc ine, unspecified formulation Darwin RICHMOND [facility] 08-21-2017 pneumococcal polysaccharide vaccine, 23 valent Darwin RICHMOND [facility] 08-01-2017 pneumococcal polysaccharide vaccine, 23 valent Darwin RICHMOND [facility] 06-27-2017 pneumococcal polysaccharide vaccine, 23 valent Darwin RICHMOND [facility] 09-09-2016 influenza virus vacc ine, unspecified formulation Darwin RICHMOND [facility] Payers Date Payer Category Payer Self-pay 2023 Unknown [id number] 2022 Medicare supplementa l policy (as second payer) [employer] [id number] 2020 Unknown 2020 Unknown [id number] .[id number] 2017 Unknown [id number] 2016 Medicare [id number] 2016 Medicare [id number] .[id number] 1959 Medicare [id number] 1959 Private Health Insurance [facility] [id number] 1959 Unknown [id number] 1951 Unknown [id number] 2.16.840.1.388429.3.579.2 .983 1951 Unknown [id number] 2.16.840.1.184973.3.579.2 .983 1951 Unknown [id number] 2.16.840.1.705425.3.579.2 .983 1951 Unknown [id number] 2.16.840.1.400692.3.579.2 .983 1951 Unknown [id number] 2.16.840.1.776057.3.579.2 .983 1951 Unknown [id number] 2.16.840.1.721794.3.579.2 .983 1951 Unknown [id number] 2.16.840.1.831500.3.579.2 .983 1951 Unknown [id number] 2.16.840.1.142706.3.579.2 .983 1951 Unknown [id number] 2.16.840.1.002245.3.579.2 .593 1951 Unknown [id number] 2.16.840.1.840622.3.579.2 .593 1951 Unknown [id number] 2.16.840.1.430754.3.579.2 .593 1951 Unknown [id number] 2.16.840.1.244316.3.579.2 .593 1951 Unknown [id number] 2.16.840.1.199367.3.579.2 .593 1951 Unknown [id number] 2.16.840.1.305913.3.579.2 .1259 1951 Unknown [id number] 2.16.840.1.732461.3.579.2 .1244 1951 Unknown [id number] 2.16.840.1.328064.3.579.2 .1244 1951 Unknown [id number] 2.16.840.1.702375.3.579.2 .727 1951 Unknown [id number] 2.16.840.1.465712.3.579.2 .727 1951 Unknown [id number] 2.16.840.1.901226.3.579.2 .727 1951 Unknown [id number] 2.16.840.1.932897.3.579.2 .727 1951 Unknown [id number] 2.16.840.1.695164.3.579.2 .727 1951 Unknown [id number] 2.16.840.1.337059.3.579.2 .727 1951 Unknown [id number] 2.16.840.1.411926.3.579.2 .727 Unknown [id number] 2.16.840.1.056949.3.579.2 .531 Unknown [id number] 2.16.840.1.241567.3.579.2 .531 Social History Date Type Detail Facility Start: 09-11-2020 End: 03-18-2025 Tobacco smoking status MSIS Former smoker [facility] of tobacco use [facility] Start: 09-11-2020 End: 03-18-2025 Tobacco use and exposure Never used [employer] Start: 09-11-2020 End: 11-23-2023 Alcohol intake Ex-drinker (finding) [facility] Start: 1950 Sex Assigned At Not on file [facility] Start: 10-02-2020 End: 11-23-2023 Tobacco Comment quit 40 yrs ago [facility] Start: 03-08-2025 End: 05-02-2025 Exposure to SARS-CoV-2 (event) Not sure [facility] Start: 10-01-2020 Tobacco smoking status Never s moked tobacco (finding) [facility] Start: 11-23-2023 End: 05-02-2025 Sex Assigned At Male [facility] History of tobacco use Current smoker [facility] Start: 11-23-2023 End: 05-02-2025 History of Social function [facility] Tobacco smoking status Never [facility] [place] Start: 1950 Sex Assigned At Male [facility] Start: 03-18-2025 End: 05-02-2025 Alcoholic beverage intake Current drinker of alcohol (finding) [facility] Work Phone: Start: 03-18-2025 Alcohol Comment occ [facility] Work Phone: Tobacco smoking stat us MSIS Unknown if ever smoked [facility] Work Phone: Start: 03-27-2025 End: 04-19-2025 Sex Male (finding) [facility] Start: 05-02-2025 Alcohol Comment once in [facility] Work Phone: Medical Equipment Procedure Code Equipment Code Equipment [...] Assessment Result Facility 10-23-2024 Functional Status N/A [facility] [place] 09-18-2024 Functional Status N/A [facility] 08-14-2024 Functional Status N/A [facility] [place] 01-31-2024 Functional Status N/A [facility] [place] 05-16-2023 Functional Status N/A [facility] Clinical Notes 10-29-2021 to 05-02-2025 Fidelina Albarado MD - 05/02/2025 11:30 AM EDTPatient InstructionsAssessment & Plan Note - MARK Domínguez - 03/19/2025 10:22 AM EDTMARK Domínguez - 03/18/2025 9:30 AM EDT Note Date & Type Note Facility 05-02-2025 History of Present illness Narrative HPI 75-year-old patient who I am seeing for the first time. He was seen in consultation by our nurse practitioner back in February 2025 for symptoms of dyspnea on exertion and fatigue. He had an echocardiogram which I reviewed the report from [facility] which was normal. He had also a nuclear stress test done at [facility] which I reviewed also and reports normal findings. And then he had 14-day event monitor in March 2025 which revealed intermittent atrial fibrillation with RVR which were not symptomatic, the one symptom he reported of dyspnea did not correlate with arrhythmias. Because of the arrhythmias he was placed on dabigatran 150 mg twice daily and metoprolol. He has had less palpitations since. He has no history of asthma or underlying pulmonary disease. He does have essential hypertension and hyperlipidemia. He does have class I obesity with no sleep apnea. He reports no orthopnea PND or lower extremity edema. He continued to have symptoms of dyspnea on exertion. He has no family history of premature CAD but his mother had atrial fibrillation. Apart from class I obesity physical examination was normal today. The findings of all the testing that have been done recently were reviewed and shared with the patient and his . [...] calorie diet and exercise with no restrictions on physical activities. ROS Vitals: 05/02/25 1055 BP: 104/68 [...] Scribe Attestation By signing my name below, Kathia Sebastian LPN, Scribe attest that this documentation has been prepared under the direction and in the presence of Fidelina Albarado MD. Provider Attestation - Scribe documentation All medical record entries made by the Scribe were at my direction and personally dictated by me. I have reviewed the chart and agree that the record accurately reflects my personal performance of the history, physical exam, discussion and plan. documented in this encounter [facility] Work Phone: 05-02-2025 Instructions Kathia Cates LPN - 05/02/2025 11:30 AM [...] instructions on exercise. documented in this encounter [facility] Work Phone: 04-18-2025 Nuclear medicine Diagnostic study note [facility] Main [place] [id number] Nuclear Medicine Report Signed Patient: López Cortés MR#: [id number] : 1950 Acct:[id number] Age/Sex: 75 / M ADM Date: 5 Loc: Room: Type: [facility] Attending Dr: Adrien Foley APRN Copies to: GLORIA Domínguez MD~ Ordering Provider: Adrien Foley APRN Date of Service: 04/18/25 NM/NM katya perf SPECT rest & str: SOB NUCLEAR MYOCARDIAL PERFUSION DATE OF PROCEDURE: 04/09/2025 ATTENDING MOBILE MECHANIC: Dr. Epi Paredes REQUESTING PHYSICIAN: Steffanie Foley PROCEDURE: The patient received a stress dose of Lexiscan and was then injected with 27.9 millicuries of Technetium 99M Sestamibi. For rest images the patient was injected with 29.6 millicuries of Technetium 99MSestamibi. FINDINGS: The raw cine images were reviewed. The post stress and rest perfusion images were reviewed as well as the computer quantification.? There was uniform uptake of the radiotracer with no perfusion defects identified.? On the gated portion of the study, the overall ejection fraction calculated at 57%.?Uniform thickening indicative of normal wall motion. TID score 1.14 is within normal limits. NM/NM katya perf SPECT rest & str IMPRESSION: 1. Normal SPECT Sestamibi myocardial perfusion. No ischemia or infarction. 2. Normal wall motion. 3. Normal left ventricular systolic function. LVEF is 57%.? Impression dictated by: Epi Paredes M.D. 04/19/2025 1:23 PM Dictation Location: [id number] Transcribed By: TANO 04/19/25 1323 Dictated By: Epi Paredes MD 04/19/25 1322 Signed By: 04/19/[address] [facility] Work Phone: 03-19-2025 Evaluation + Plan note Associated Problem(s): Fatigue Reports change in exercise capacity and functional tolerance over last 3 months. [facility] Work Phone: 03-19-2025 Miscellaneous Notes Associated Problem(s): [...] in office: NSR documented in this encounter [facility] Work Phone: 03-19-2025 Evaluation + Plan note Associated Problem(s): Dyspnea Presents with concerns of progressive dyspnea on exertion 'on & off for years' but recent increase while inadvertently not taking neurontin. [facility] Work Phone: 03-19-2025 Evaluation + Plan note Associated Problem(s): BMI 35.0-35.9,adult Reviewed the merits of healthy lifestyle choices on overall cardiovascular health. [facility] Work Phone: 03-19-2025 Evaluation + Plan note Associated Problem(s): Mixed hyperlipidemia Moderate intensity statin [facility] Work Phone: 03-19-2025 Evaluation + Plan note Associated Problem(s): Essential hypertension Optimally treated on low dose amlodipine & avapro [facility] Work Phone: 03-19-2025 Evaluation + Plan note Associated Problem(s): Abnormal EKG TWI III & AVF PRWP anterior leads [facility] Work Phone: 03-19-2025 Evaluation + Plan note Associated Problem(s): Palpitations Occurs with activity - over weekend had to stop twice while planting roses due to elevated heart rate & palpitations. ECG in office: NSR [facility] Work Phone: 03-18-2025 History of Present illness Narrative Self referral for dyspnea on exertion, palpitations and fatigue. Reports prior evaluation by [facility] Cardiology > 5 years ago; reports being [...] after testing (patient request) Adrien Foley MSN, ELECTRONIC SECURITY SPECIALIST-INTELLECTUAL PROPERTY COUNSEL, PMHNP-[facility] [place], [place] Please excuse any errors in grammar or translation related to this dictation. Voice recognition software was utilized to prepare this document. [1] Family History Problem Relation Name Age of Onset Alzheimer's disease Mother Other (heart issues) Mother Alzheimer's disease Father documented in this encounter [facility] Work Phone: 03-18-2025 Instructions MARK Domínguez - [...] testing (patient request) documented in this encounter [facility] Work Phone: 09-12-2024 Note Nurse Consultation N [...] virus vaccine, inactivated 08/2023 Recorded SARS-CoV-2 (COVID-19) [id number] 09/24/2022 Recorded influenza virus vaccine, inactivated 08/31/2022 Recorded SARSCoV2 mRNA(axgdxgsjz-vuyv-ojxgrd) vac 03/29/2022 Recorded SARS-CoV-2 (COVID-19) Ad26 vaccine [...] Recorded influenza virus vaccine, inactivated 09/09/2016 Recorded [facility] 11-23-2023 History of Present illness Narrative Ortho Nurse - Established Patient Intake Room#: 5 Date: 11/23/2023 8:26 AM Patient: López Cortés MR#: [id number] : 1950 Age: 73 y.o. 3yr L [...] antibiotics. López is an established patient of [employer]. He is here today for followup. He [...] his exercise program will resolve his symptoms. (DOC:[id number]) I have reviewed the findings of the clinical software support representative and agree with their assessment. Bhavana Addison APRN-INTELLECTUAL PROPERTY COUNSEL Ortho Nurse - Established Patient Intake Room#: 5 Date: 11/23/2023 8:26 AM Patient: López Cortés MR#: [id number] : 1950 Age: 73 y.o. 3yr L [...] and sulfa antibiotics. documented in this encounter [facility] 05-16-2023 Hospital Discharge instructions Patient Education 05/16/2023 [...] Follow these instructions at home: Medicines Take cyha-uqp-ospyais and prescription medicines only as told by [...] provider. Document Revised: 02/03/2022 Document Reviewed: 02/03/2022 Conjur Patient Education 2022 [employer]. Follow Up Care 01/26/2022 15:47:19 With:ISABEL RILEY, Darwin Moreno, URL Address: [facility] [employer] [address]- When: Unknown Comments:[facility] [place] 06-16-2022 History of Present illness Narrative Ortho Nurse - Established Patient Intake Room#: 1 Left Knee Revision checkup, doing great , some pain of 2 when doing steps, Clindamycin was ordered today for dental prophylaxis Date: 06/16/2022 10:17 AM Patient: López Cortés MR#: [id number] : 1950 Age: 72 y.o. Referring Physician: [...] have reviewed the findings of the clinical software support representative and agree with their assessment. Ortho Nurse - Established Patient Intake Room#: 1 Left Knee Revision checkup, doing great , some pain of 2 when doing steps, Clindamycin was ordered today for dental prophylaxis Date: 06/16/2022 10:17 AM Patient: López Cortés MR#: [id number] : 1950 Age: 72 y.o. Referring Physician: [...] and sulfa antibiotics. documented in this encounter [facility] 05-26-2022 History of Present illness Narrative Review [...] at that time. documented in this encounter [facility] 02-17-2022 History of Present illness Narrative Review [...] shots have helped. documented in this encounter [facility] 12-17-2021 History of Present illness Narrative HPI: López is here today for evaluation of his operative knee. 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 He was last evaluated on 10/29/21 by my INTELLECTUAL PROPERTY COUNSEL, he was instructed to use Voltaren gel [...] have reviewed the findings of the clinical software support representative and agree with their assessment. Ortho Nurse Established Patient Intake Room#: 2---Visit today to follow -up on Left knee pain. He has no pain when resting or sleeping. The pain starts after long walks or using stairs. He had a left TKA on 10-29-20. His pain today is a 3. Date: 12/17/2021 10:55 AM Patient: López Cortés MR#: [id number] : 1950 Age: 71 y.o. Referring Physician: [...] 12/17/2021 10:55 AM Patient: López Cortés MR#: [id number] : 1950 Age: 71 y.o. Referring Physician: [...] and sulfa antibiotics. documented in this encounter [facility] 10-29-2021 History of Present illness Narrative HPI: [...] have reviewed the findings of the clinical software support representative and agree with their assessment. Ortho Nurse Established Patient Intake Room#: 4 Date: 10/29/2021 11:10 AM Patient: López Cortés MR#: [id number] : 1950 Age: 71 y.o. 1yr F/U [...] 10/29/2021 11:10 AM Patient: López Cortés MR#: [id number] : 1950 Age: 71 y.o. 1yr F/U [...] and sulfa antibiotics. documented in this encounter [employer] [facility] Evaluation + Plan note Future Appointments Appointment Date:05/16/2023 09:45:00 AM Scheduled Provider:Darwin RICHMOND MD Location:[facility] [place] Appointment Type:URO Office Visit [facility] Evaluation + Plan note Future Appointments Appointment Date:02/28/2024 01:40:00 PM Scheduled Provider:Obey ALAS MD [facility] General Surgery [place] Evaluation + Plan note Future Appointments Appointment Date:03/06/2024 02:40:00 PM Scheduled Provider:Obey ALAS MD Location: [place] Appointment Type: Established 15 General Surgery [place] Evaluation + Plan note Future Appointments Appointment Date:10/23/2024 08:00:00 AM Scheduled Provider:Obey ALAS MD Location:[facility] Appointment Type: Established 15 [facility] Surgery [place] Evaluation note Diagnosis Hx of total knee arthroplasty, left- Primary documented in this encounter [employer] [facility]* Diagnosis Bilateral thumb pain- Primary Left knee pain, unspecified chronicity documented in this encounter [employer] [facility] note* Diagnosis Bilateral thumb pain [facility] Diagnosis Bilateral thumb pain [facility]* Diagnosis Bilateral thumb pain- Primary Primary osteoarthritis of first carpometacarpal joint of left hand Primary localized osteoarthrosis, hand documented in this encounter [facility]* Diagnosis Bilateral thumb pain- Primary documented in this encounter [facility]* Diagnosis History of revision of total replacement of left knee joint- Primary [facility]* Diagnosis Hx of total knee arthroplasty, left- Primary documented in this encounter [facility] SystemEvaluation noteNo assessment information [facility] Work Phone: Evaluation note* Diagnosis Dyspnea on exertion- Primary Other dyspnea and respiratory abnormality Palpitations Abnormal EKG Nonspecific abnormal electrocardiogram (ECG) (EKG) Other fatigue BMI 35.0-35.9,adult Mixed hyperlipidemia Essential hypertension Unspecified essential hypertension documented in this encounter [facility] Work Phone: Evaluation note* Diagnosis Dyspnea on exertion- Primary Other dyspnea and respiratory abnormality Palpitations Abnormal EKG Nonspecific abnormal electrocardiogram (ECG) (EKG) Other fatigue BMI 35.0-35.9,adult Mixed hyperlipidemia Essential hypertension Unspecified essential hypertension Paroxysmal atrial fibrillation (Multi) Atrial fibrillation High risk medication use Encounter to discuss test results Other specified counseling Essential hypertension Unspecified essential hypertension Mixed hyperlipidemia BMI 34.0-34.9,adult Former smoker Personal history of tobacco use, presenting hazards to health documented in this encounter [facility] Work Phone: Hospital course Narrative No data available for this section [facility] No data available for this section [facility] No data available for this section [facility] Summary Purpose Family History No [...] FoundNo Family History Records Found Advance Directives Documents on File Type Date Recorded Patient Hand Cultivator Expl anation Advance Directives/Living Will 10/28/2020 9:12 AM LIVING WILL, POA Latest Code Status on File Code Status Date Activated Date Inactivated Comments Full Code 10/28/2020 3:43 PM Documents on File Type Date Recorded Patient Hand Cultivator Expl anation Advance Directives/Living Will 10/28/2020 9:12 [...] BONE SCAN WHOLE BODY Barak Hebert MD [address] [place], [place] [id number] [place] [facility] Nuclear Medicine [address] [place], [place] [phone] Status Reason Specialty Diagnoses / Procedures Referred By Contact Referred To Contact Auth Not Needed Nuclear Medicine Diagnoses Pain in prosthetic joint, initial encounter Procedures NUC WBC STUDY [place] ABSCESS IMAGING, WHOLE BODY Barak Hebert MD [address] [place] [address] [place] [facility] Nuclear Medicine [address] [place], [place] [phone] Status Reason Specialty Diagnoses / Procedures Referred By Contact Referred To Contact Auth Not Needed Nuclear Medicine Diagnoses Pain in prosthetic joint, initial encounter Procedures NUC BONE MARROW LIMITED AREA [place] BONE MARROW IMAGING, LTD Barak Hebert MD [address] [place], [place] [phone] [place] [facility] Nuclear Medicine [address] [place], [place] [phone] Status Reason Specialty Diagnoses / Procedures Referred By Contact Referred To Contact Pending Review Diagnoses Left knee pain, unspecified chronicity Procedures XR BONE LENGTH STUDY Barak Hebert MD [address] [place], [place] [phone] Status Reason Specialty Diagnoses / Procedures Referred By Contact Referred To Contact Pending Review Diagnoses Left knee pain, unspecified chronicity Procedures XR KNEE LEFT 3 VIEWS Barak Hebert MD [address] [place], [place] [phone] Status Reason Specialty Diagnoses / Procedures Referred By Contact Referred To Contact Closed Nuclear Medicine Diagnoses Pain in prosthetic joint, subsequent encounter Procedures NUC 3 PHASE LIMITED BONE SCAN KS BONE IMAGING, 3 PHASE Bhavana Addison, ELECTRONIC SECURITY SPECIALIST-INTELLECTUAL PROPERTY COUNSEL [address] [place], [place] [phone] [place] [facility] Nuclear Medicine [address] [place], [place] [phone] Status Reason Specialty Diagnoses / Procedures Referred By Contact Referred To Contact New Request Diagnoses Hx of total knee arthroplasty, left Procedures XR KNEE LEFT 3 VIEWS Kaila Richmond PA-C [address] [place] [phone] Status Reason Specialty Diagnoses / Procedures Referred By Contact Referred To Contact Closed Nuclear Medicine Diagnoses Pain in prosthetic joint, initial encounter Procedures NUC BONE MARROW LIMITED AREA [place] BONE MARROW IMAGING, LTD Barak Hebert MD [address] [place], [place] [phone] [place] [facility] [address] [place] [phone] Specialty Diagnoses / Procedures Referred By Contac t Referred To Contact Diagnoses Hx of total knee arthroplasty, left Procedures XR KNEE LEFT 3 VIEWS Bhavana Addison, ELECTRONIC SECURITY SPECIALIST-[facility] [address] [place], [place] [phone] Referral ID Status Reason Start Date Expiration Date V isits Requested Visits Authorized [id number] New Request 10/22/2021 11/16/2022 1 1 Specialty Diagnoses / Procedures Referred By Contac t Referred To Contact Physical Therapy Diagnoses Left knee pain, unspecified chronicity Barak Hebert MD [address] [place] [phone] Referral ID Status Reason Start Date Expiration Date V isits Requested Visits Authorized [id number] New Request 12/17/2021 01/11/2023 1 1 Scheduling Instructions . Specialty Diagnoses / Procedures Referred By Contac t Referred To Contact Orthopaedic Surgery Diagnoses Bilateral thumb pain Barak Hebert MD [address] [place] [phone] Gadiel Floyd MD [address] [place] [phone] Referral ID Status Reason Start Date Expiration Date V isits Requested Visits Authorized [id number] New Request 12/17/2021 01/11/2023 1 1 Specialty Diagnoses / Procedures Referred By Contac t Referred To Contact Diagnoses Bilateral thumb pain Procedures XR THUMB LEFT Gadiel Floyd MD [address] [place] [address] Referral ID Status Reason Start Date Expiration Date V isits Requested Visits Authorized [id number] New Request 02/11/2022 03/08/2023 1 1 Specialty Diagnoses / Procedures Referred By Severoac t Referred To Contact Diagnoses History of revision of total replacement of left knee joint Procedures XR KNEE LEFT 3 VIEWS Barak Hebert MD [address] [place] [address] Referral ID Status Reason Start Date Expiration Date V isits Requested Visits Authorized [id number] New Request 06/15/2022 07/10/2023 1 1 Referral ID Status Reason Start Date Expiration Date V isits Requested Visits Authorized [id number] New Request 11/22/2023 12/16/2024 1 1 History [...] for [facility] [place] and the potential surgical date, and reviewing [...] file Gets together: Not on file Attends anglican service: Not on file Active member of [...] 09/11/2020 2:10 PM Patient: López Cortés MR#: [id number] : 1950 Age: 70 y.o. Referring Physician: [...] [x]cane, []bracing Are you followed by a tobacco dipper? [] [x] Name: Are you followed by [...] Transfer Skill: Sit To Stand, Rehab Eval [place] (Sit-Stand Transfers) other (see comments) (SBA) Physical Assist/Nonphysical Assist: Sit/Stand 1 person assist Weight-Bearing Restrictions: Sit/Stand weight-bearing as tolerated Assistive Device For Transfer: Sit/Stand 2 wheeled walker Gait Skills, PT Eval Level of [place]: Gait stand-by assist Physical Assist/Nonphysical Assist: Gait 1 person assist Weight-Bearing Restrictions: Gait weight-bearing as tolerated Assistive Device For Transfer: Gait 2 wheeled walker Gait Distance (300ft) Gait Analysis, PT Eval Gait Pattern Used swing-through gait Gait Deviations Identified (Gait) decreased heel strike;other (see comments) (toe out ) Impairments Contributing To Gait Deviations pain;decreased ROM Stair Negotiation Level of [place]: Stair Negotiation stand-by assist Physical Assist/Nonphysical Assist: [...] PT - 10/29/2020 3:20 PM EST 10/29/20 08 Time In/Out Time In 0824 Time Out [...] Transfer Skill: Sit To Stand, Rehab Eval [place] (Sit-Stand Transfers) other (see comments) (SBA) Physical Assist/Nonphysical Assist: Sit/Stand 1 person assist Weight-Bearing Restrictions: Sit/Stand weight-bearing as tolerated Assistive Device For Transfer: Sit/Stand 2 wheeled walker Gait Skills, PT Eval Level of [place]: Gait stand-by assist Physical Assist/Nonphysical Assist: Gait 1 person assist Weight-Bearing Restrictions: Gait weight-bearing as tolerated Assistive Device For Transfer: Gait 2 wheeled walker Gait Distance other (see comments) (125ft) Gait Analysis, PT Eval Gait Pattern Used swing-through gait Gait Deviations Identified (Gait) decreased heel strike;other (see comments) (toe out) Impairments Contributing To Gait Deviations pain;decreased ROM Stair Negotiation Level of [place]: Stair Negotiation contact guard Physical Assist/Nonphysical Assist: [...] upon exit Therapist Information License # [id number] * Esperanza Avila MD - 10/28/2020 6:47 PM EST INPATIENT REHAB / SWINGBED PROGRESS NOTE Admit Date: 10/28/2020 Date of Evaluation: 10/28/20206:47 PM [facility] Rehab / Skilled bed LOS: 0 [...] statins Protonix for GI protection * Kimberly Silva, OT - 10/28/2020 6:10 PM EST 10/28/20 [...] Supine to Sit, Rehab Eval Level of [place]: Supine/Sit stand-by assist Physical Assist/Nonphysical Assist: Supine/Sit 1 person assist Transfer Skill: Sit to Stand, Rehab Eval Level of [place]: Sit/Stand contact guard Physical Assist/Nonphysical Assist: Sit/Stand 1 person assist Weight-Bearing Restrictions: Sit/Stand weight-bearing as tolerated Assistive Device for Transfer: Sit/Stand wheeled walker Upper Body Dressing Level of [place] independent Physical Assist/Nonphysical Assist set-up required Lower Body Dressing Level of [place] moderate assist (50% patients effort) Physical Assist/Nonphysical Assist 1 person assist (including ZACKARY hose ) Toileting Level of [place] contact guard Physical Assist/Nonphysical Assist 1 person assist Grooming [place] Level (Grooming) supervision;wash face, hands General Therapy [...] hygiene training Therapist Information License # [id number] 1. Pt will complete LB dressing MOD [...] Supine to Sit, Rehab Eval Level of [place]: Supine/Sit stand-by assist Physical Assist/Nonphysical Assist: Supine/Sit 1 person assist Transfer Skill: Sit To Stand, Rehab Eval [place] (Sit-Stand Transfers) contact guard Physical Assist/Nonphysical Assist: Sit/Stand 1 person assist Weight-Bearing Restrictions: Sit/Stand weight-bearing as tolerated Assistive Device For Transfer: Sit/Stand 2 wheeled walker Gait Skills, PT Eval Level of [place]: Gait contact guard Physical Assist/Nonphysical Assist: Gait 1 person assist Weight-Bearing Restrictions: Gait weight-bearing as tolerated Assistive Device For Transfer: Gait 2 wheeled walker Gait Distance 75 feet Gait Analysis, PT Eval Gait Pattern Used swing-through gait Gait Deviations Identified (Gait) decreased gait speed;decreased heel strike;decreased step length Impairments Contributing To Gait Deviations decreased ROM;decreased strength Stair Negotiation Level of [place]: Stair Negotiation (not assessed at this time) [...] pt his plan to return home with HH PT services. Pt left seated in the [...] to pharmacy, using cane for walking , 10 comes and goes. Date: 11/19/2020 11:07 AM Patient: López Cortés MR#: [id number] : 1950 Age: 70 y.o. Referring Physician: [...] Date: 10/29/2020 Discharge Time: 10/29/2020 Discharge Unit: [facility] Inpatient Rehab [facility] Unit Length of Stay: LOS: 1 day Admission Information Admitting Physician: Braak Hebert MD Discharge Information Discharge Physician: Esperanza [...] as: ULTRAM Follow-up: Tess Fuentes MD [address] [facility] [address] In 1 week SANJUANITA louise 1 week Barak Hebert MD [address] [place] [phone] Call in 3 days Upcoming Appointments (up to five)-Some appointments for Medical Center outpatient clinics or diagnostic testing locations are not displayed below Provider Department Dept Phone 11/19/2020 11:00 AM Kaila Maldonado [facility] [phone] Total coordination of discharge care taking greater that 30 minutes documented in this encounter Discharge Instructions * Discharge Instr - Activity* Esperanza Avila MD - 10/29/2020 8:19 AM EST As tolerated * Discharge Instr - Diet* Esperanza Avila MD - 10/29/2020 8:20 AM EST As tolerated * Discharge Instr - Notify* [place] RN - 10/29/2020 10:08 AM EST Contact Office ([phone]) if: > Total Knee ROM < 90 [...] Hour Product Support Hotline at Contact Office ([phone]) if: > Total Knee ROM < 90 [...] Don office is closed, you may call [phone] where you will be connected with an after hours orthopedic nurse that will be able to answer your questions. The morning after your discharge Dr. Don office will contact you to follow up with how your recovery is progressing at home. * Attachments The following attachments cannot be sent through Care Everywhere. * meloxicam (oral/injection) (Northern Irish) * oxycodone (Northern Irish) * acetaminophen (oral) (Northern Irish) * docusate and senna (Northern Irish) * multivitamins ([place] Irish) * omeprazole (Northern Irish) * doxycycline (oral/injection) (Northern Irish) documented in this encounter Chief Complaint and Reason for Visit Chief Complaint Admit Date r06.09 e78.2 r94.31 r53.83 r00.2 March 8:21am R06.09 R00.2 R94.31 E78.2 April 18, 2025 7:37am R06.09 R00.2 R94.31 E78.2 April 18, 2025 3:27pm Chief Complaint Admit Date r06.09 e78.2 r94.31 r53.83 r00.2 March 8:21am Additional Source Comments (unrecognized sect ion and content) No Status Records FoundNo Status Records FoundNo Status Records FoundNo Status Records FoundNo Status Records FoundNo Status Records FoundNo Status Records FoundNo Status Records FoundNo Status Records Found INFORMATION SOURCE (unrecogn ized section and content) DATE CREATED AUTHOR 05/16/2018 [facility] DATE CREATED AUTHOR AUTHOR'S ORGANIZ ATION 05/16/2018 [facility] DATE CREATED AUTHOR AUTHOR'S ORGANIZ ATION 02/27/2019 [facility] DATE CREATED AUTHOR AUTHOR'S ORGANIZ ATION [facility]/[address] [facility] DATE CREATED AUTHOR AUTHOR'S ORGANIZ ATION 02/02/2023 [facility] DATE CREATED AUTHOR AUTHOR'S ORGANIZ ATION 06/09/2024 [facility] EPIC DATE CREATED AUTHOR AUTHOR'S ORGANIZ ATION 04/21/2025 [facility] Ambulatory DATE CREATED AUTHOR AUTHOR'S ORGANIZ ATION 04/28/2025 [facility] DATE CREATED AUTHOR AUTHOR'S ORGANIZ ATION 05/02/2025 Bigg Clemens [facility] Reason for Visit (unrecogniz ed section and content) Status Reason Specialty Diagnoses / Procedures Referred By Contact Referred To Contact Pending Review Diagnoses Left knee pain, unspecified chronicity Procedures XR BONE LENGTH STUDY Barak Hebert MD [address] [place] [address] Reason Comments Knee Pain Pain New Patient Status Reason Specialty Diagnoses / Procedures Referred By Contact Referred To Contact Closed Nuclear Medicine Diagnoses Pain in prosthetic joint, subsequent encounter Procedures NUC 3 PHASE LIMITED BONE SCAN KS BONE IMAGING, 3 PHASE Bhavana Addison, ELECTRONIC SECURITY SPECIALIST-INTELLECTUAL PROPERTY COUNSEL [address] [place] [address] [facility] [address] [place], [place] [address] Status Reason Specialty Diagnoses / Procedures Referred By Contact Referred To Contact Closed Nuclear Medicine Diagnoses Pain in prosthetic joint, initial encounter Procedures NUC WBC STUDY KS ABSCESS IMAGING, WHOLE BODY Barak Hebert MD [address] [place] [address] [facility] [address] [place], [place] [phone] Status Reason Specialty Diagnoses / Procedures Referre d By Contact Referred To Contact Diagnoses Mechanical loosening of internal left knee prosthetic joint, 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, 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] Procedures KS REVISE KNEE JOINT REPLACE,ALL PARTS REVISION ARTHROPLASTY KNEE Barak Hebert MD [address] [place], [place] [id number] Reason Comments Post Op Visit Status Reason Specialty Diagnoses / Procedures Referred By Contact Referred To Contact New Request Diagnoses Hx of total knee arthroplasty, left Procedures XR KNEE LEFT 3 VIEWS Kaila Richmond PA-C [address] [place], [place] [id number] Status Reason Specialty Diagnoses / Procedures Referred By Contact Referred To Contact Closed Nuclear Medicine Diagnoses Pain in prosthetic joint, initial encounter Procedures NUC BONE MARROW LIMITED AREA KS BONE MARROW IMAGING, LTD Barak Hebert MD [address] [place], [place] [id number] [facility] [address] [place], [place] [phone] Status Reason Specialty Diagnoses / Procedures Referred By Contact Referred To Contact Auth Not Needed Nuclear Medicine Diagnoses Pain in prosthetic joint, initial encounter Procedures NUC WBC STUDY KS ABSCESS IMAGING, WHOLE BODY Barak Hebert MD [address] [place], [place] [id number] [place] [facility] [address] [place], [place] [phone] Status Reason Specialty Diagnoses / Procedures Referred By Contact Referred To Contact New Request Diagnoses S/P total knee arthroplasty, left Procedures XR BONE LENGTH STUDY Barak Hebert MD [address] [place], [place] [phone] Specialty Diagnoses / Procedures Referred By Contac t Referred To Contact Diagnoses Hx of total knee arthroplasty, left Procedures XR KNEE LEFT 3 VIEWS Bhavana Addison, ELECTRONIC SECURITY SPECIALIST-INTELLECTUAL PROPERTY COUNSEL [address] [place], [place] [phone] Referral ID Status Reason Start Date Expiration Date V isits Requested Visits Authorized [id number] New Request 10/22/2021 11/16/2022 1 1 Reason Comments Follow-up Reason Comments Pain Condition Update Specialty Diagnoses / Procedures Referred By Contac t Referred To Contact Diagnoses Bilateral thumb pain Procedures XR THUMB LEFT Gadiel Floyd MD [address] [place] [address] Referral ID Status Reason Start Date Expiration Date V isits Requested Visits Authorized [id number] New Request 02/11/2022 03/08/2023 1 1 Reason Comments Pain Specialty Diagnoses / Procedures Referred By Contac t Referred To Contact Orthopaedic Surgery Diagnoses Bilateral thumb pain Barak Hebert MD [address] [place] [address] Gadiel Floyd MD [address] [place] [address] Referral ID Status Reason Start Date Expiration Date V isits Requested Visits Authorized [id number] New Request 12/17/2021 01/11/2023 1 1 Reason Comments Follow-up Follow Up- Bilat Bas al Joint Arthritis/ Last Injection: 02/17/22- Pain Scale: 210 Bilat Referral ID Status Reason Start Date Expiration Date V isits Requested Visits Authorized [id number] New Request 11/22/2023 12/16/2024 1 1 Reason Comments New Patient Visit Self /ref for sob on exertion Specialty Diagnoses / Procedures Referred By Contac t Referred To Contact Diagnoses Dyspnea on exertion Procedures ECG 12 Lead Adrien Foley, ELECTRONIC SECURITY SPECIALIST-INTELLECTUAL PROPERTY COUNSEL [address] [facility] [place] [address] Phone: tel: fax: Referral ID Status Reason Start Date Expiration Date V isits Requested Visits Authorized [id number] Authorized 03/18/2025 03/18/2026 1 1 Reason Comments Follow-up Echo, stress, monito r test results Amaris Samayoa RN - 10/28/2020 2:35 PM ESTWhAmaris tubbs RN - 10/28/2020 12:50 PM EST Nursing Notes (unrecognized section and content) Patient ransferred to PACU via bed with this nurse and HISTORIOGRAPHY PROFESSOR. Bedside report given to ANOOP Lwa. Fire risk level of 2 determined during [...] determined in the discharge planning process with dialysis social worker and the multidisciplinary team. Return to bay from PT. C/o pain 4 out of 10. Pain pill offered but Tylenol due. PT to take tylenol and save oxicodone for after lunch. Follow up phone call to [facility], who state that they can accept to start services tomorrow. Follow up call received from Suzy at [facility]. Referral for [facility] Santa cohn to be made through [facility]. Instructed to request Santa for PT on referral. Referral sent at this time. To PT room Spoke with Suzy at [facility] regarding referral. Referring patient information, [...] PROCEDURE: 10/28/2020 ATTENDING PHYSICIAN: Barak Hebert M.D. DOCK LOADER: Bhavana Addison CNP. PREOPERATIVE DIAGNOSIS: Failed left [...] Adequate. SPECIMENS: Include bone. INSTRUMENTATION USED: DePuy Quoterollerune size 7 left CRS femoral component with [...] on the back table according to the labor and delivery nurse s technique. They were then cemented into [...] procedure) without the assistance of a skilled registered nurse surgical services. A registered nurse surgical services was medically necessary for positioning, retraction and [...] L knee ABD dry, no drng noted. ZAKCARY hose in place. Hemovac intact, compressed. Q [...] home with his spouse and C through [facility], which he has used in the [...] bay 310. POST OPERATIVE/PROCEDURE NOTE López Cortés ([id number]) SURGEON Surgeon(s) and Role: * Barak Hebert MD - Primary DOCK LOADER MARK Richardson ANESTHESIOLOGIST HISTORIOGRAPHY PROFESSOR: Yusef Escobedo CRNA SURGICAL STAFF Mailing Section Clerk: Kerry Richter RN Nurse Practitioner: MARK Richardson Scrub Person: Andrew Moffett, ANOOP; Alyx Miller; Martha Rolon, ANOOP Cigar Head Piercer Research Programmer: Escobar Rodriguez Fashion Consultant Selling: Efrem Bonner LPN PROCEDURE PERFORMED Procedure(s) (LRB): [...] to return home with his spouse and [facility] after discharge for a left knee revision. He states that lives in [place] and would like to utilize [facility] in that area. He states that he has a wheeled walker and will bring it with him on the day of surgery. CM to continue to follow and assist with discharge plans. 10/02/20927 Information Source Information Source patient Contact Information Corporate Account Executive Name Sun Lopez RN Case Manager's Living [...] Care Teams (unrecognized sec tion and content) Barrel Tester And Drainer Relationship Specialty Start Date End Date Tess Fuentes MD [address] [place] [address] PCP - General Family Medicine 09/11/20 Barrel Tester And Drainer Relationship Specialty Start Date End Date Tess Fuentes MD [address] [place] [address] PCP - General Family Medicine 09/11/20 Barrel Tester And Drainer Relationship Specialty Start Date End Date Tess Fuentes MD [address] [place] [address] PCP - General Family Medicine 09/11/20 Barrel Tester And Drainer Relationship Specialty Start Date End Date Tess Fuentes MD [address] [facility] [place] [address] [place] [address] PCP - General Family Medicine 09/11/20 Barrel Tester And Drainer Relationship Specialty Start Date End Date Tess Fuentes MD [address] [facility] [place] [address] PCP - General Family Medicine 09/11/20 Barrel Tester And Drainer Relationship Specialty Start Date End Date Tess Fuentes MD [address] [facility] [place] [address] [place] [address] PCP - General Family Medicine 09/11/20 Barrel Tester And Drainer Relationship Specialty Start Date End Date Tess Fuentes MD [address] [place] [address] PCP - General Family Medicine 09/11/20 Barrel Tester And Drainer Relationship Specialty Start Date End Date Tess Fuentes MD [address] [facility] [place] [facility] [place] [address] PCP - General Family Medicine 09/11/20 Barrel Tester And Drainer Relationship Specialty Start Date End Date Tess Fuentes MD [address] [place] [address] PCP - General Family Medicine 09/11/20 Barrel Tester And Drainer Relationship Specialty Start Date End Date Tess Fuentes MD [address] [facility] [place] [address] PCP - General Family Medicine 09/11/20 Team Status: Inactive Member Role Status Dates Obey Alas MD FACS Attending Provider Active Start: February 28, 2024 End: February 28, 2024 Team Status: Inactive Member Role Status Dates Obey Alas MD FACS Attending Provider Active Start: August 29, 2024 End: August 29, 2024 Barrel Tester And Drainer Relationship Specialty Start Date End Date Tess Fuentes MD [address] [place] [address] PCP - General Family Medicine 03/14/25 Team Status: Active Member Role Status Dates Tess Fuentes MD Primary Care Provider Active Team Status: Inactive Member Role Status Dates Tess Fuentes MD Primary Care Provider Active Start: March 26, 2025 End: March 26, 2025 Adrien Foley APRN Attending Provider Active S tart: March 26, 2025 End: March 26, 2025 Team Status: Inactive Member Role Status Dates Adrien Foley APRN Attending Provider Active S tart: April 18, 2025 End: April 18, 2025 Barbara Galdamez DO Referring Provider Active S tart: April 18, 2025 End: April 18, 2025 Tess Fuentes MD Primary Care Provider Active Start: April 18, 2025 End: April 18, 2025 Team Status: Active Member Role Status Dates Adrien Foley APRN Other Provider Active Start : April 18, 2025 Barbara Galdamez DO Referring Provider Active S tart: April 18, 2025 Tess Fuentes MD Primary Care Provider Active Start: April 18, 2025 Epi Paredes MD Attending Provider Activ e Start: April 18, 2025 Barrel Tester And Drainer Relationship Specialty Start Date End Date Tess Fuentes MD [address] [place] [address] PCP - General Family Medicine 03/14/25 Goals (unrecognized section and content) Goals may [...] BE BASED ON THE PRIMARY CLINICAL RECORDS. [facility]. provides no warranty or guarantee of the accuracy or completeness of information in this document.
[2025-05-04 09:44] LABS: Anion Gap 13.9; BUN Creatinine Ratio 16.3; Calcium 9.1 mg/dL (8.5-10.1); Carbon Dioxide 27.6 mmol/L (21.0-32.0); Chloride 104 mmol/L (98-107); Estimated GFR (African America >60 (>=60 mL/min/1.73m^2); Estimated GFR (Non-African Ame 54 (>=60 mL/min/1.73m^2); Glucose 99 mg/dL (74-106); Potassium 4.5 mmol/L (3.5-5.1); Sodium 141 mmol/L (136-145)
== END 2025-05-04 08:36 | disposition home or self-care (01) ==
LOC: LAB 08:37
PROVIDERS: PCP Family Medicine; Visit Provider Family Medicine
DX: M43.6 Torticollis (principal)
CPT/HCPCS: 36415; 80048

== ENCOUNTER 2025-05-14 14:18 | Outpatient (OUT) | payer MEDICARE, SELFPAY ==
--- OUTSIDE RECORDS SUMMARY | 2025-05-02 11:30 | XMS_ITS | Encounter Summary ---
Author Organization [facility] Address [address] [place] [address] Phone Care Team Providers Care Fraud Examiner Name Role Phone Efe Morris MD Primary Care Provider [phone] Reason for Referral * Consultation (Routine) - Authorized Specialty Diagnoses / Procedures Referred By Contac t Referred To Contact Cardiology Diagnoses Paroxysmal atrial fibrillation (Multi) Procedures Follow Up In Cardiology Fidelina Albarado MD [address] [place] [address] 2, [address] [address] Phone: tel: fax: Fidelina Albarado MD [address] [facility] 2, [place] [address] [place] [address] Phone: tel: fax: Referral ID Status Reason Start Date Expiration Date V isits Requested Visits Authorized [id number] Authorized 05/02/2025 05/02/2026 1 1 * Cardiovascular (Routine) - Authorized Specialty Diagnoses / Procedures Referred By Contac t Referred To Contact Diagnoses Paroxysmal atrial fibrillation (Multi) Procedures ECG 12 Lead Fidelina Albarado MD [address] [facility] 2, [address] [address] Phone: tel: fax: Referral ID Status Reason Start Date Expiration Date V isits Requested Visits Authorized [id number] Authorized 05/02/2025 05/02/2026 1 1 Reason for Visit * Reason Comments Follow-up Echo, stress, monito r test results Encounter Details Date Type Department Care Team (Late st Contact Info) Description 05/02/2025 11:30 AM EDT Office Visit [address] [place] [address] Fidelina Albarado MD 703 [facility] 2, [address] [place] [address] Paroxysmal atrial fibrillation (Multi); High risk medication use; Encounter to discuss test results; Essential hypertension; Mixed hyperlipidemia; BMI 34.0-34.9,adult; Former smoker Social History Tobacco Use Types Packs/Day Years Used Date Smoking Tobacco: Former Cigarettes Smokeless Tobacco: Never Alcohol Use Standard Drinks/Week Comments Yes 0 (1 standard drink = 0.6 oz pur e alcohol) once in awhile Sex and Gender Information Value Date Recorded Sex Assigned at Not on file Legal Sex Male 11:53 AM EDT Gender Identity Not on file Sexual Orientation Not on file COVID-19 Exposure Response Date Recorded In the last 10 days, have yo u been in contact with someone who was confirmed or suspected to have Coronavirus/COVID-19? No / Unsure 05/02/2025 10:50 AM EDT documented as of this encounter Last Filed Vital Signs Vital Sign Reading Time Taken Comments Blood Pressure 104/68 05/02/2025 10:55 AM EDT Pulse 72 05/02/2025 10:55 AM EDT Temperature - - Respiratory Rate - - Oxygen Saturation - - Inhaled Oxygen Concentration - - Weight 102 kg (225 lb) 05/02/2025 10:55 AM EDT Height 172.7 cm (5' 8 ) 05/02/2025 10:55 AM EDT Body Mass Index 34.21 05/02/2025 10:55 AM EDT documented in this encounter Patient Instructions * Patient Instructions* Kathia Cates LPN - 05/02/2025 11:30 AM EDT Please bring all medicines, vitamins, and herbal supplements with you when you come to the office. Prescriptions will not be filled unless you are compliant with your follow up appointments or have a follow up appointment scheduled as per instruction of your physician. Refills should be requested at the time of your visit. BMI was above normal measurement. Current weight: 102 kg (225 lb) Weight change since last visit (-) denotes wt loss -10.4 lbs Weight loss needed to achieve BMI 25: 60.9 Lbs Weight loss needed to achieve BMI 30: 28.1 Lbs Provided instructions on dietary changes Provided instructions on exercise. documented in this encounter Progress Notes * Fidelina Albarado MD - 05/02/2025 11:30 AM EDT HPI 75-year-old patient who I am seeing for the first time. He was seen in consultation by our nurse practitioner back in February 2025 for symptoms of dyspnea on exertion and fatigue. He had an echocardiogram which I reviewed the report from [facility] which was normal. He had also a nuclear stress test done at [facility] which I reviewed also and reports normal findings. And then he had 14-day event monitor in March 2025 which revealed intermittent atrial fibrillation with RVR which were not symptomatic, the one symptom he reported of dyspnea did not correlate with arrhythmias. Because of the arrhythmias he was placed on dabigatran 150 mg twice daily and metoprolol. He has had less palpitations since . He has no history of asthma or underlying pulmonary disease. He does have essential hypertension and hyperlipidemia. He does have class I obesity with no sleep apnea. He reports no orthopnea PND orlower extremity edema. He continued to have symptoms of dyspnea on exertion. He has no family history of premature CAD but his mother had atrial fibrillation. Apart from class I obesity physical examination was normal today. The findings of all the testing that have been done recently were reviewedand shared with the patient and his . Their questions were answered to their satisfaction. Assessment/recommendations: 1-paroxysmal atrial fibrillation discovered on an event monitor March 2025. Patient has been on dabigatran since along with metoprolol. He has had minimal events of palpitations. To reduce the risk of recurrent atrial fibrillation flecainide 50 mg twice daily will be added to his medical regimen and EKG in 1 week will be scheduled. The benefits and potential risks of this medicine were discussed with the patient and his . 2-high risk medication with dabigatran which could lead to bleeding complications as we discussed with the patient and his . The benefit exceeds the potential risks. He is now started on flecainide and will monitor for any proarrhythmic events. 3-essential hypertension, currently under control on irbesartan along with amlodipine, low-salt diet, exercise and weight loss was encouraged 4-dyslipidemia managed with pravastatin 40 mg daily, well-tolerated, low-fat diet weight control with exercise was encouraged 5-class I obesity, encouragement provided for low calorie diet and exercise with no restrictions onphysical activities. ROS Vitals: 05/02/25 1055 BP: 104/68 BP Location: Left arm Patient Position: Sitting Pulse: 72 Weight: 102 kg (225 lb) Height: 1.727 m (5' 8 ) Objective Physical Exam Constitutional: Appearance: Normal appearance. HENT: Nose: Nose normal. Neck: Vascular: No carotid bruit. Cardiovascular: Rate and Rhythm: Normal rate. Pulses: Normal pulses. Heart sounds: Normal heart sounds. Pulmonary: Effort: Pulmonary effort is normal. Abdominal: General: Bowel sounds are normal. Palpations: Abdomen is soft. Musculoskeletal: General: Normal range of motion. Cervical back: Normal range of motion. Right lower leg: No edema. Left lower leg: No edema. Skin: General: Skin is warm and dry. Neurological: General: No focal deficit present. Mental Status: He is alert. Psychiatric: Mood and Affect: Mood normal. Behavior: Behavior normal. Thought Content: Thought content normal. Judgment: Judgment normal. Allergies Sulfa (sulfonamide antibiotics) Current Medications Current Outpatient Medications Medication Instructions amLODIPine (Norvasc) 2.5 mg tablet 1 tablet, Daily (629) dabigatran etexilate (PRADAXA) 150 mg, oral, 2 times daily, Do not crush or chew. flecainide (TAMBOCOR) 50 mg, oral, 2 times daily irbesartan (AVAPRO) 300 mg, Daily irbesartan (AVAPRO) 150 mg, Daily metoprolol succinate XL (TOPROL-XL) 25 mg, oral, Daily, Do not crush or chew. pravastatin (PRAVACHOL) 40 mg, Every evening tamsulosin (FLOMAX) 0.4 mg, Daily temazepam (RESTORIL) 10 mg, Nightly PRN Assessment/Plan 1. Paroxysmal atrial fibrillation (Multi) flecainide (Tambocor) 50 mg tablet ECG 12 Lead Follow Up In Cardiology 2. High risk medication use 3. Encounter to discuss test results 4. Essential hypertension 5. Mixed hyperlipidemia 6. BMI 34.0-34.9,adult 7. Former smoker Scribe Attestation By signing my name below, IKathia LPN , Scribe attest that this documentation has been prepared under the direction and in the presence of Fidelina Albarado MD. Provider Attestation - Scribe documentation All medical record entries made by the Scribe were at my direction and personally dictated by me. Ihave reviewed the chart and agree that the record accurately reflects my personal performance of the history, physical exam, discussion and plan. documented in this encounter Plan of Treatment Upcoming Encounters Date Type Department Care Team (Late st Contact Info) Description 01/07/2026 8:40 AM EST Office Visit [address] [place] [address] Fidelina Albarado MD 703 [facility] 2, [address] [place] [address] documented as of this encounter Results * ECG 12 Lead (05/09/2025 9:33 AM EDT) Narrative [facility] - 05/09/2025 2:17 PM EDT Sinus bradycardia, T wave inversion inferiorly, low voltage QRS complex, abnormal ECG us Fidelina Albarado MD ECG ORDERABLES Final Result CPA documented in this encounter Visit Diagnoses Diagnosis Paroxysmal atrial fibrillation (Multi) Atrial fibrillation High risk medication use Encounter to discuss test results Other specified counseling Essential hypertension Unspecified essential hypertension Mixed hyperlipidemia BMI 34.0-34.9,adult Former smoker Personal history of tobacco use, presenting hazards to health Paroxysmal atrial fibrillation (Multi) Atrial fibrillation documented in this encounter Additional Health Concerns Assessment Noted Time A fall risk assessment has been complete d for the patient 05/02/2025 10:56 AM EDT documented as of this encounter Care Teams Fraud Examiner Relationship Specialty Start Date End Date Efe Morris MD [address] [place] [address] PCP - General Family Medicine 03/14/25 documented as of this encounter
--- OUTSIDE RECORDS SUMMARY | 2025-05-05 08:19 | XMS_ITS ---
Author Organization The [facility] in [place] Address [address] [place] [address] Care Team Providers Care Welfare Administrator Name Role Phone Abhilash Morris Primary Care Provider [phone] REASON FOR VISIT Kidney Test Results Encounters Encounter Location Date Provider Diagnosis [facility] [address] [place] [address] 05/05/2025 Abhilash Elanzack Plan Of Treatment Next Appt Details Provider Name:Abhilash Morris, 09:00:00 AM, [address] [place], [address], Progress Notes * López CORTÉS PDOB:[birth year] (75 yo M)Acc No.[id number]:05/05/2025 Patient: Ruby López REHMAN :1950 A ge:75 Y S ex:Male Address:[address] [place] [address], [address] * true * Date: Generated for Printi ng/Fajayyg/eTransmitting on: 05/14/2025 02:22 PM EDT
--- OUTSIDE RECORDS SUMMARY | 2025-05-08 07:30 | XMS_ITS ---
Author Organization The [facility] in [place] Address [address] [place] [address] Care Team Providers Care Hemodialysis Lab Technician Name Role Phone Abhilash Morris Primary Care Provider [phone] REASON FOR VISIT BP CHECK Vital Signs Weight 222.6 lbs 05/08/2025 Height 68 in 05/08/2025 Blood pressure systolic 98 mm Hg 05/08/20 25 Blood pressure diastolic 64 mm Hg 025 BMI 33.84 kg/m2 05/08/2025 Encounters Encounter Location Date Provider Diagnosis [facility] [address] [place] [address] 05/08/2025 Abhilash Morris Hypertension I10 Assessments Encounter Date Diagnosis (ICD Code) Assessment Notes Treatment Notes Treatment Clinical Notes Section Notes 05/08/2025 Hypertension (ICD-10 - I10) Plan Of Treatment Next Appt Details Provider Name:Abhilash Shelley Morris, 09:00:00 AM, [address] [place], [address], Progress Notes * López CORTÉS PDOB:[birth year] (75 yo M)Acc No.[id number]:05/08/2025 UNLOCKED PROGRESS NOTE BP Check Patient: Ruby López REHMAN Provider: Lashae Morris ([facility])MD :1950 A ge:75 Y S ex:Male Date:05/08/2025 Address:[address] [place] [address] [address] [id number] Check In:11:23 AM ESTCheck O ut:11:35 AM EST Subjective: * Chief Complaints: * 1 . BP CHECK. * Medical History: Objective: * Vitals: W t:222.6lbs, Ht: 68 in, BP:98/64mm Hg, BMI:33.84Index, Ht-cm: 172.72 cm, Wt-k.97 kg. Assessment: * Assessment: 1. H ypertension - I10 (Primary) Plan: * Treatment: * * Electronic signature of Abhilash Morris MD, [id number] on 05/14/2025 at 02:22 PM EDT Sign off status: Pending Visit Status: Lyle MANRIQUE (Check Out) * Provider: Lashae Morris ([facility])MD Date: 05/08/2025 Generated for Christinei hossein/Adriana/eTransmitting on: 05/14/2025 02:22 PM EDT
--- OUTSIDE RECORDS SUMMARY | 2025-05-08 07:36 | XMS_ITS ---
Author Organization The [facility] in [place] Address [address] [place] [address] Care Team Providers Care Auditing Specialist Name Role Phone Abhilash Morris Primary Care Provider [phone] REASON FOR VISIT BP check Encounters Encounter Location Date Provider Diagnosis [facility] [address] [place] [address] 05/08/2025 Abhilash Morris Hypertension I10 Assessments Encounter Date Diagnosis (ICD Code) Assessment Notes Treatment Notes Treatment Clinical Notes Section Notes 05/08/2025 Hypertension (ICD-10 - I10) Plan Of Treatment Medication Medication Name Sig Start Date Stop Date Notes Irbesartan 150 MG 1 tablet Orally Once a day dose changed per pt Next Appt Details Provider Name:Abhilash Morris, 09:00:00 AM, [address] [place], [address], Progress Notes * López BORJAS PDOB:[birth year] (75 yo M)Acc No.[id number]:05/08/2025 Patient: Ruby SCOTTERICALópez :1950 A ge:75 Y S ex:Male Address:[address] [place] [address], [address] * Refills Stop Irbesartan Tablet, 150 MG, Orally, 1 tablet, Once a day * true * Date: Generated for Printi ng/Faxing/eTransmitting on: 0 05/14/2025 02:22 PM EDT
--- OUTSIDE RECORDS SUMMARY | 2025-05-09 10:00 | XMS_ITS | Encounter Summary ---
Author Organization [facility] Address [address] [place] [address] Phone Care Team Providers Care Air Turning Machine Feeder Name Role Phone Efe Morris MD Primary Care Provider [phone] Reason for Visit * Reason Comments ekg visit * Cardiovascular (Routine) - Authorized Specialty Diagnoses / Procedures Referred By Contac t Referred To Contact Diagnoses Paroxysmal atrial fibrillation (Multi) Procedures ECG 12 Lead Fidelina Albarado MD [address], [facility] [address] [place] [address] Phone: tel: fax: Referral ID Status Reason Start Date Expiration Date V isits Requested Visits Authorized [id number] Authorized 05/02/2025 05/02/2026 1 1 Encounter Details Date Type Department Care Team (Latest Contact Info) Description 05/09/2025 10:00 AM EDT Ancillary Procedure [address] [place] [address] Paroxysmal atrial fibrillation (Multi) Social [...] here for EKG visit ordered by Dr. Albarado due to afib. Dr. Albarado in suite [...] Description 01/07/2026 8:40 AM EST Office Visit [facility] [address] [place] [address] Fidelina Albarado MD [address], [address] [place] [address] documented as of this encounter [...] documented as of this encounter Care Teams Air Turning Machine Feeder Relationship Specialty Start Date End Date Efe Morris MD [address] [place] [address] PCP - General Family Medicine 03/14/25 documented as of this encounter
--- OUTSIDE RECORDS SUMMARY | 2025-05-14 14:22 | XMS_ITS | Encounter Summary ---
Author Organization [facility] Address [address] [place] [address] Care Team Providers Care Salvage Mend Worker Name Role Phone Efe Morris MD Primary Care Provider [phone] Source Comments In the event this information is protected by the Federal Confidentiality of Alcohol and Drug AbusePatient Records regulations: The Federal rules restrict any use of the information to criminally investigate or prosecute any alcohol or drug abuse patient.[facility] Encounter Details Date Type Department Care Team (Late st Contact Info) Description 02/14/2018 [facility] [address] [place] [address] Main Perez MD [address] [place] [address] Social History Tobacco Use Types Packs/Day Years Used Date Smoking Tobacco: Never Assessed Sex and Gender Information Value Date Recorded Sex Assigned at Not on file Legal Sex Male 10:46 AM EST Gender Identity Not on file Sexual Orientation Not on file documented as of this encounter Plan of Treatment Not on file documented as of this encounter Visit Diagnoses Not on filedocumented in this encounter Care Teams Salvage Mend Worker Relationship Specialty Start Date End Date Efe Morris MD PCP - General Family Medicine 11/07/17 documented as of this encounter
--- OUTSIDE RECORDS SUMMARY | 2025-05-14 14:22 | XMS_ITS | Patient Health Record ---
Author Organization [facility] [place] Address [address] [place] [address] Care Team Providers Care Housing Development Specialist Name Role Phone Abhilash Morris Primary Care Provider TESS MORRIS Unavailable [phone] Allergies Allergen (clinical drug ingredient) Drug/Non Drug Allergy documented on EMR Reaction Allergy Type Onset Date Status Sulfa Unknown Drug Allergy Active Results Component Value Reference Range Notes GLYCOHEMOGLOBIN A1C Reviewed date:04/17/2025 06:13:03 PM Interpretation: Performing Lab: Notes/Report: [facility] , Glycohemoglobin A1C 5.7 4.5-6.2 % ADA RECOMMENDED LIMIT 4.0 - 6.0 ADA THERAPEUTIC TARGET < 7.0 ACTION SUGGESTED > 7.0 Estimated Average Glucose 117 Performing Lab: see note - [facility] LB Occult Blood* Reviewed date:04/18/2025 05:43:17 PM Interpretation: Performing Lab: Notes/Report: [facility] , Occult Blood Positive Performing Lab: see note - [facility] LB PROF CHEM 8 (BAS METB) Reviewed date:05/05/2025 12:19:42 PM Interpretation: Performing Lab: Notes/Report: [facility] , Sodium 141 136-145 mmol/L Potassium 4.5 3.5-5.1 mmol/L Chloride 104 98-107 mmol/L Carbon Dioxide 27.6 21.0-32.0 mmol/L Anion Gap 13.9 Glucose 99 74-106 mg/dL Blood Urea Nitrogen 21.0 7.0-18.0 mg/dL Creatinine 1.29 0.70-1.30 mg/dL Estimated GFR ( Desiree >60 >=60 mL/min/1.73m 2 Estimated GFR (Non- Stephanie 54 >=60 mL/min/1.73m 2 BUN Creatinine Ratio 16.3 Calcium 9.1 8.5-10.1 mg/dL Performing Lab: see note ML - [facility] LB TSH Reviewed date:04/17/2025 06:13:03 PM Interpretation: Performing Lab: Notes/Report: [facility] , Thyroid Stimulating Hormone 0.805 0.358-3.740 u IU/mL Performing Lab: see note ML - [facility] LB T4 Reviewed date:04/17/2025 06:13:03 PM Interpretation: Performing Lab: Notes/Report: [facility] , T4 Thyroxine 5.90 4.50-12.10 ug/dL Performing Lab: see note ML - [facility] PROF 14(COMP METB) Reviewed date:04/17/2025 06:13:03 PM Interpretation: Performing Lab: Notes/Report: [facility] , Sodium 142 136-145 mmol/L Potassium 4.7 3.5-5.1 mmol/L Chloride 105 98-107 mmol/L Carbon Dioxide 29.4 21.0-32.0 mmol/L Anion Gap 12.3 Glucose 103 74-106 mg/dL Blood Urea Nitrogen 20.0 7.0-18.0 mg/dL Creatinine 1.55 0.70-1.30 mg/dL Estimated GFR ( Desiree 53 >=60 mL/min/1.73m 2 Estimated GFR (Non- Stephanie 44 >=60 mL/min/1.73m 2 BUN Creatinine Ratio 12.9 Calcium 8.9 8.5-10.1 mg/dL Bilirubin Total 1.8 0.2-1.0 mg/dL Aspartate Amino Transferase 33 15-37 U/L Alanine Aminotransferase 36 16-63 U/L Alkaline Phosphatase 123 46-116 U/L Total Protein 7.1 6.4-8.2 g/dL Albumin Level 3.5 3.4-5.0 g/dL Globulin 3.6 Albumin Globulin Ratio 1.0 Performing Lab: see note ML - [facility] LB LIPID PROFILE Reviewed date:04/17/2025 06:13:03 PM Interpretation: Performing Lab: Notes/Report: [facility] , Triglycerides 74 <=150 mg/dL Cholesterol 113 <=200 mg/dL HDL Cholesterol 44 40-60 mg/dL <40 mg/dl - HIGH CARDIOVASCULAR RISK > or =60 mg/dl - LOW CARDIOVASCULAR RISK LDL Cholesterol Calculated 54.2 >190 mg/dl VERY HIGH 160-189 mg/dl HIGH 130-159 mg/dl BORDERLINE HIGH 100-129 mg/dl NEAR OR ABOVE OPTIMAL <100 mg/dl OPTIMAL VLDL CHOLESTEROL 14.8 Chol HDL Ratio 2.6 7.1 - 11.0 MODERATE RISK >11.0 HIGH RISK 3.3 - 4.4 LOW RISK 4.4 - 7.1 AVERAGE RISK Performing Lab: see note ML - [facility] LB FREE T3 Reviewed date:04/17/2025 06:13:03 PM Interpretation: Performing Lab: Notes/Report: [facility] , Free T3 2.52 2.18-3.98 pg/mL Performing Lab: see note ML - [facility] LB CBC AUTO DIFF Reviewed date:04/17/2025 06:13:03 PM Interpretation: Performing Lab: Notes/Report: [facility] , White Blood Count 6.6 4.0-11.0 10 3/uL Red Blood Count 4.91 4.70-6.10 10 6/uL Hemoglobin 15.4 14.0-18.0 g/dL Hematocrit 46.2 42.0-54.0 % Mean Corpuscular Volume 94.1 80.0-94.0 fL Mean Corpuscular Hemoglobin 31.4 25.9-34.0 pg Mean Corpuscular HGB Conc 33.3 29.9-35.2 g/dL Red Cell Distribution Width 13.5 11.0-15.0 % Platelet Count 200 150-450 10 3/uL Mean Platelet Volume 9.9 9.5-13.5 fL Neutrophils Percent Auto 61.9 43.0-75.0 % Lymphocytes Percent Auto 19.4 20.5-60.0 % Monocytes Percent Auto 13.6 1.7-12.0 % Eosinophils Percent Auto 4.0 0.9-7.0 % Basophils Percent Auto 0.8 0.2-2.0 % Immature Granulocytes Pct Auto 0.3 0.0-0.5 % Neutrophils Absolute Auto 4.1 1.4-6.5 10 3/uL Lymphocytes Absolute Auto 1.3 1.2-3.8 10 3/uL Monocytes Absolute Auto 0.9 0.3-0.8 10 3/uL Eosinophils Absolute Auto 0.3 0.0-0.7 10 3/uL Basophils Absolute Auto 0.1 0.0-0.1 10 3/uL Immature Granulocytes Abs Auto 0.02 0.00-0.03 10 3/uL Performing Lab: see note ML - [facility] LB Reason For Referral Diagnosis 1 Cervical radiculopat hy (M54.12) Referral Organization [facility] Referring Provider First Name Abhilash Referring Provider Last Name Arturo [facility]erred Provider Pain Management, TB Referred Provider Specialty Pain Medicin e Referral Priority Routine Diagnosis 1 Positive occult stoo l blood test (R19.5) Referral Organization [facility] Referring Provider First Name Abhilash Referring Provider Last Name Arturo Referring Provider [facility] monique Referred Provider Obey Mahmood Referred Provider Specialty General Surg michelle Referral Priority Routine Reason seeing him alread Diagnosis 1 Sebaceous cyst (L72. 3) Referral Organization [facility] Referring Provider First Name Abhilash Referring Provider Last Name Arturo Referring Provider [facility] monique Referred Provider Obey Mahmood Referred Provider Specialty General Surg michelle Referral Priority Routine Medications Medication SIG (Take, Route, Frequency, Duration) Notes Start Date End Date Status Metoprolol Succinate ER 25 MG Oral for 90 Days Active Pantoprazole Sodium 40 MG TAKE 1 TABLET BY MOUTH EVERY DAY for 90 Active tiZANidine HCl 4 MG 2 tablets Orally at bedtime for 15 02/07/2024 Active Temazepam 15 MG 1 capsule at bedtime as needed Orally dx G47.00 Once a day for 30 days 02/12/2025 Active Tamsulosin HCl 0.4 MG TAKE 1 CAPSULE BY MOUTH EVERY DAY for 90 days Active Pravastatin Sodium 40 MG TAKE 1 TABLET B Y MOUTH EVERY DAY for 90 Active Dabigatran Etexilate Mesylate 150 MG Oral for 90 Days Active Clotrimazole-Betamethason e 1-0.05 % 1 application Externally Twice a day 02/12/2025 Active Gabapentin 100 MG 2 tabs Orally Once a day for 30 days Not-Taking Cervical Traction - Cervical traction 25 pounds - QOD - Dx Cervical radiculpathy for 1 days 04/19/2024 Active Triamcinolone Acetonide 0.1 % 1 application Externally Twice a day for 30 06/27/2023 Active Immunizations Vaccine Route Administration Date Status Comme nts Flu, Fluad (91790) 65 yrs + High Dose Seasonal (9912-8906) IM Intramuscular 09/15/2023 Administered Flu, Fluad (03393) 65 yrs and older, single-dose syringe IM Intramuscular 09/26/2024 Administered Tdap Unknown 09/23/2024 Administered Social History AUDIT-C (Standard) Question Answer Notes Did you have a drink containing alcohol in the p ast year? No Points 0 Interpretation Negative Problems Problem Type SNOMED Code ICD Code Onset Dates Problem Status W/U Status Risk Notes Problem Sebaceous cyst (735340037) Sebaceous cyst (L72.3) Active confirmed Problem Impingement syndrome of left shoulder region (087662258928758) Impingement syndrome of left shoulder (M75.42) Active confirmed Problem Atrial fibrillation (05711894) Atrial fibrillation (I48.91) Active confirmed Problem Hypertension (00857995) Hypertension (I10) Active confirmed Problem Gastroesophageal reflux disease (427626962) GERD (gastroesophageal reflux disease) (K21.9) Active confirmed Problem Cervical radiculopat hy (32724529) Cervical radiculopathy (M54.12) Active confirmed Problem Peripheral neuropath y (712935361) Peripheral neuropathy (G62.9) Active confirmed Problem Chronic kidney disea se stage 2 (142155608) Chronic kidney disease, stage II (mild) (N18.2) Active confirmed Problem Insomnia (489173164) Insomnia (G47.00) Active c onfirmed Problem Osteoarthritis of kn ee (119780812) Knee osteoarthritis (M17.9) Active confirmed Problem Benign prostatic hyperplasia (681701440) BPH (benign prostatic hyperplasia) (N40.0) Active confirmed Problem Glaucoma (71678562) Glaucoma (H40.9) Active con firmed Problem 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 Problem Arthralgia (25024003) Arthralgia (M25.50) Active confirmed Problem Angioneurotic edema (94961661) Angioneurotic edema (T78.3XXA) Active confirmed Problem Basal cell carcinoma (9783915) Basal cell carcinoma (C44.91) Active confirmed Problem Acute bronchiolitis (9540322) Acute bronchiolitis (J21.9) Active confirmed Problem hypercholesterolemia (disorder) (30614575) Hypercholesteremia (E78.00) Active confirmed Problem Torticollis (23359706) Spastic t orticollis (M43.6) Active confirmed Problem Disorder of sacrum (72199136) Low back derangement syndrome (M53.86) Active confirmed Problem 954814926 Abnormal finding s on diagnostic imaging of other specified body structures (R93.89) Active confirmed Problem Osteoarthritis of kn ee (191492250) DJD (degenerative joint disease) of knee (M17.10) Active confirmed Vital Signs Temperature 98.2 degrees Fahrenheit 10/04/2024 Blood pressure diastolic 64 mm Hg 05/08/2025 Height 68 in 05/08/2025 Blood pressure systolic 98 mm Hg 05/08/2025 Weight 222.6 lbs 05/08/2025 BMI 33.84 kg/m2 05/08/2025 Encounters Encounter Location Date Provider Diagnosis [address] [address] 05/03/2025 Abhilash Hoy Sebaceous cyst L72.3 ; Hypertension I10 and Atrial fibrillation I48.[address] [address] 05/08/2025 Abhilash Hoy Hypertension I10 [address] [address] 09/26/2024 Abhilash Hoy Encounter for immuni zation Z23 [address] [address] 10/04/2024 Abhilash Hoy Acute non-recurrent sinusitis, unspecified location J01.90 and Nasal congestion R09.[address] [address] 12/31/2024 Abhilash Hoy Spastic torticollis M43.6 ; Cervical radiculopathy M54.12 and Hypertension I10 [address] [address] 02/12/2025 Abhilash Hoy Hypertension I10 ; G ERD (gastroesophageal reflux disease) K21.9 ; Peripheral neuropathy G62.9 and Chronic kidney disease, stage II (mild) N18.2 [facility] [address] [place] [address] 04/16/2025 Abhilash Hoy Chronic kidney disea se, stage II (mild) N18.2 ; Hypertension I10 ; Hypercholesteremia E78.00 and Polyneuropathy, unspecified G62.9 [facility] [address] [place] [address] 04/17/2025 Abhilash Hoy Spastic torticollis M43.6 and Elevated BUN R79.9 [facility] [address] [place] [address] 04/18/2025 Abhilash Hoy [facility] [address] [place] [address] 04/18/2025 Abhilash Hoy Positive occult stoo l blood test R19.5 [facility] [address] [place] [address] 05/05/2025 Abhilash Hoy [facility] [address] [place] [address] 05/08/2025 [address] Hy[address]10 [facility] [address] [place] [address] 05/15/2024 TESS HOY [facility] [address] [place] [address] 06/28/2024 Abhilash Hoy Acute bronchiolitis J21.9 [facility] [address] [place] [address] 10/08/2024 Abhilash Hoy Acute non-recurrent sinusitis, unspecified location J01.90 [facility] [address] [place] [address] 2025 Abhilash Hoy Cervical radiculopat hy M54.12 [facility] [address] [place] [address] 02/12/2025 Abhilash Morris Hypertension I10 [facility] [address] [place] [address] 03/20/2025 Abhilash Morris Cervical radiculopat hy M54.12 Assessments Encounter Date Diagnosis (ICD Code) Assessment Notes Treatment Notes Treatment Clinical Notes Section Notes 09/26/2024 Encounter for immunization (ICD-10 - Z23) 10/04/2024 Acute non-recurrent sinusitis, unspecified location (ICD-10 - J01.90) Rest and drink more liquids, especially water. You may use a humidifier or vaporizer to help keep the drainage moist. Cdrx-cey-enhzlqo Nasal Saline may help the stuffy and runny nose. Use Ibuprofen and or Tylenol as needed for fever, chills, body aches or pain. Children 5 years old should not be given ktio-hxg-eezhlas cough and cold medications such as guaifenesin and dextromethorphan. If you're over age 5, you may try auif-cvf-sxcedyd cold medications such as guaifenesin and dextromethorphan, or multi-symptom cold reliever such as Dayquil to help reduce the symptoms. Antibiotics have been prescribed. You should take these until completed and follow the directions. Antibiotics can sometimes cause upset stomach, and in rare cases, serious allergic reactions or serious gastrointestinal problems. If you start having severe abdominal pain, severe vomiting, or bloody diarrhea, you should be reevaluated by your physician or urgent care immediately. Follow up with your Primary Care Provider or return to clinic if symptoms do not improve within 3-5 days 12/31/2024 Cervical radiculopathy (ICD-10 - M54.12) 12/31/2024 Spastic torticollis (ICD-10 - M43.6) 02/12/2025 Hypertension (ICD-10 - I10) 02/12/2025 GERD (gastroesophageal reflux disease) (ICD-10 - K21.9) stabel on embed 05/08/2025 Hypertension (ICD-10 - I10) 05/03/2025 Sebaceous cyst (ICD-10 - L72.3) 06/28/2024 Acute bronchiolitis (ICD-10 - J21.9) 10/08/2024 Acute non-recurrent sinusitis, unspecified location (ICD-10 - J01.90) 2025 Cervical radiculopathy (ICD-10 - M54.12) 02/12/2025 Hypertension (ICD-10 - I10) 03/20/2025 Cervical radiculopathy (ICD-10 - M54.12) 04/16/2025 Hypertension (ICD-10 - I10) 04/16/2025 Chronic kidney disease, stage II (mild) (ICD-10 - N18.2) 04/17/2025 Spastic torticollis (ICD-10 - M43.6) 04/18/2025 Positive occult stoo l blood test (ICD-10 - R19.5) 05/08/2025 Hypertension (ICD-10 - I10) 04/16/2025 Hypercholesteremia (ICD-10 - E78.00) 04/17/2025 Elevated BUN (ICD-10 - R79.9) 05/03/2025 Atrial fibrillation (ICD-10 - I48.91) 05/03/2025 Hypertension (ICD-10 - I10) 02/12/2025 Peripheral neuropath y (ICD-10 - G62.9) stable 12/31/2024 Hypertension (ICD-10 - I10) 10/04/2024 Nasal congestion (ICD-10 - R09.81) 02/12/2025 Chronic kidney disease, stage II (mild) (ICD-10 - N18.2) 04/16/2025 Polyneuropathy, unspecified (ICD-10 - G62.9) 12/31/2024 Other Recommended to rest and use a heating pad on the area. Take NSAIDs for pain as needed Plan Of Treatment Pending Test Test Name Order Date UA (URINALYSIS, COMPLETE) 03/05/2024 MRI Cervical Spine w/o contrast * 2023 COMPREHENSIVE METABOLIC PROFILE WITH GFR 04/09/2024 COMPREHENSIVE METABOLIC PROFILE WITH GFR 04/16/2025 OCCULT BLOOD, FECAL, IMMUNOASSAY 025 OCCULT BLOOD, FECAL, IMMUNOASSAY 024 Basic Metabolic Panel (8) 04/17/2025 CBC W/AUTO DIFF 04/16/2025 CBC W/AUTO DIFF 04/09/2024 THYROID PANEL (T4/TSH/FREE T3) 05/20/202 4 THYROID PANEL (T4/TSH/FREE T3) PSA, SCREENING 04/09/2024 Lipid Panel 04/09/2024 Lipid Panel 04/16/2025 Next Appt Details Provider Name:Abhilash Morris, 09:00:00 AM, [address] [place], [address], Insurance Providers Payer Name Payer Address Payer Phone Subscriber Number Group Number Insured Name Patient Relationship to Insured Coverage Start Date Coverage End Date MEDIC[place] [address] [place] [address] [id number] López Borjas Self - patient is the insured [facility] [employer]ANCE [address] [address] [place] [address] [id number] López Borjas Self - patient is the insured Medications Administered Medication Instructions Date of Administration Dosage Notes Kenalog-40 02/07/2024 80 mg 80 mg Ketorolac Tromethamine 02/07/2024 60 mg 60 Ketorolac Tromethamine 02/23/2024 30 mg 30 Orphenadrine Citrate 02/07/2024 60 mg 60 Orphenadrine Citrate 02/23/2024 30 mg 30 Medical (General) History Medical History History ICD Code Peripheral neuropathy G62.9 Impingement syndrome of left shoulder M7 5.42 Chronic kidney disease, stage II (mild) N18.2 Arthralgia M25.50 Conjunctival hemorrhage H11.30 BPH (benign prostatic hyperplasia) N40.0 Terrazas esophagus K22.70 DJD (degenerative joint disease) of knee M17.10 Angioneurotic edema T78.3XXA Shoulder impingement syndrome M75.40 Knee osteoarthritis M17.9 GERD (gastroesophageal reflux disease) K 21.9 Insomnia G47.00 Hypertension I10 Trigger middle finger of right hand M65. 331 Glaucoma H40.9 Hypercholesteremia E78.00 Fractured sternum 807.2 Surgical History Surgery Date(Month/Year) cholecystectomy Colonoscopy Dr Giron 2015 [facility] CUFF REPAIR- RIGHT TRIGGER FINGER HEMORRHOID SURGERY RIGHT KNEE PARTIAL MENISCESTOMY 03/2019 REVISION LEFT TOTAL ARTHROPL ASTY, PERIARTICULAR INJECTION, PLACEMENT OF CONTINUOUS CATHETER 10/29/2020 BILATERAL BASAL JOINT INJECTONS skin cancer removal from left ear Hospitalization History Reason Date(Month/Year) See above
--- OUTSIDE RECORDS SUMMARY | 2025-05-14 14:22 | XMS_ITS | Clinical Summary ---
Author Organization [employer] Address [id number] [address] [place] [address] Care Team Providers Care Tool Room Attendant Name Role Phone Efe Morris MD Primary Care Provider [phone] Allergies Active Allergy Reactions Criticality Noted Date Comments Penicillins Other (See Comments) 04/12/2019 As a child Sulfa (Sulfonamide Antibiotics) Other (See Comments) 04/12/2019 As a child Medications pantoprazole (PROTONIX) 40 mg EC tablet Take 40 mg by mouth daily. Active SUMAtriptan (IMITREX) 100 mg tablet Take 100 mg by mouth once as needed for migraine. May repeat in 2 hours if unresolved. Do not exceed 200 mg in 24 hours. Active temazepam (RESTORIL) 7.5 mg capsule Take 15 mg by mouth nightly as needed for sleep. Active hjsdovmb-jxpk-V A-calcium &mins (THERAGRAN-M) 9 mg iron-400 mcg tablet Take 1 tablet by mouth daily. Active pravastatin (PRAVACHOL) 40 mg tablet Take 40 mg by mouth daily. 3 02/16/2019 Active ferrous sulfate 325 (65 FE) mg tablet Take 325 mg by mouth daily with breakfast. Active doxazosin (CARDURA) 4 mg tablet Take 4 mg by mouth nightly. Patient is on for prostate issues, not hypertension. Active Active Problems Problem Noted Date Diagnosed Date Primary osteoarthritis of left knee 05/06/2020 Family History Medical History Relation Name Comments Alzheimer's disease Father Alzheimer's disease Mother Heart disease Mother Relation Name Status Comments Father Mother Social History Tobacco Use Types Packs/Day Years Used Date Smoking Tobacco: Former Smokeless Tobacco: Never Alcohol Use Standard Drinks/Week Comments Yes 0 (1 standard drink = 0.6 oz pur e alcohol) occassional Childcare Answer Date Recorded Childcare Unknown 05/02/2019 Employment Answer Date Recorded Employment Unknown 05/02/2019 Purpose - Life Answer Date Recorded Purpose and direction in life Unknown Sex and Gender Information Value Date Recorded Sex Assigned at Not on file Legal Sex Male 11:49 AM EDT Gender Identity Not on file Sexual Orientation Not on file Last Filed Vital Signs Vital Sign Reading Time Taken Comments Blood Pressure 128/77 05/08/2020 7:09 AM EDT Pulse 71 05/08/2020 7:09 AM EDT Temperature 36.7 C (98.1 F) 05/08/2020 7:09 AM EDT Respiratory Rate 16 05/08/2020 7:09 AM EDT Oxygen Saturation 94% 05/08/2020 7:09 AM EDT Inhaled Oxygen Concentration - - Weight 102 kg (224 lb 13.9 oz) 05/07/2020 2:07 P M EDT Height 172.7 cm (5' 8 ) 05/07/2020 2:07 PM EDT Body Mass Index 34.19 05/07/2020 2:07 PM EDT Plan of Treatment Health Maintenance Due Date Last Done Comments Depression Screening 1963 Tobacco Screening 1963 Adult BMI Screening 1969 DTaP,Tdap and Td Vaccines (1 - Tdap) 1970 Zoster (Shingles) Vaccine (1 of 2) 2001 Fall Risk Screening 01/25/2016 Influenza Vaccine 07/22/2025 09/04/2019, , 08/24/2017, Additional history exists Goals Goal Patient Goal Type Associated Problems Recent Progress Patient-Stated? Author Home General Yes Lori Altman LSW Note: Evaluation of progress towards goal: Safe dc transition from hospital to home with [facility] for home PT. Medical Devices Implanted Type Area Gluing Crew Leader Device Identifier Shelf Expiration Date Model / Serial / Lot Cmnt Bn Bio 40gm Rpl [id number] - Sna - [id number] Implanted:Qty : 2 on 05/07/2020 by Bruno Ortega DO at [facility] Cement Left: Knee [employer] 02/19/2024 [id number] / NA / [id number] Cmpt Fem 9 Std Kn Lt Cr Cmnt - Sna - [id number] Implanted:Qty : 1 on 05/07/2020 by Bruno Ortega DO at [facility] Orthopedic Implant Left: Knee [employer] 09/20/2029 [id number] 01 / NA / [id number] Cmpt Ptlr 32mm Nxgn Alply Rpl [id number] + [id number] + [id number] - Sna - [id number] Implanted:Qty : 1 on 05/07/2020 by Bruno Ortega DO at [facility] Orthopedic Implant Left: Knee [employer] 10/20/2027 [id number] 32 / NA / [id number] Psn Mc Ve Asf L 12mm 8-11/Ef - Sna - [id number] Implanted:Qty : 1 on 05/07/2020 by Bruno Ortega DO at [facility] Orthopedic Implant Left: Knee [employer] 06/20/2024 [id number] 12 / NA / [id number] Bsplt Tib 5d E Kn Lt Cmnt Stm - Sna - [id number] Implanted:Qty : 1 on 05/07/2020 by Bruno Ortega DO at [facility] Plate Left: Knee [employer] 09/20/2027 [id number]- 01 / NA / [id number] Explanted Type Area Gluing Crew Leader Device Identifier Shelf Expiration Date Model / Serial / Lot Scr Bn Arsen 35mm 6.5mm Hip St Rpl [id number] + [id number] + 32 - Sna - [id number] Explanted:Qty: 1 on 05/07/2020 at [facility] Screw Left: Knee [employer] 10/20/2029-6250-06 5-35 / NA / [id number] Scr Bn Arsen 35mm 6.5mm Hip St Rpl [id number] + [id number] + 32 - Sna - [id number] Explanted:Qty: 1 on 05/07/2020 by Bruno Ortega DO at [facility] Screw Left: Knee [employer] 10/18/20296250- 5-35 / NA / [id number] Scr Gd 48mm Qd-Spr Hex Hd Mis - Sna - [id number] Explanted:Qty: 1 on 05/07/2020 at [facility] Screw Left: Knee [employer] 01/18/20305983- 0-48 / NA / [id number] Scr Gd 48mm Qd-Spr Hex Hd Mis - Sna - [id number] Explanted:Qty: 1 on 05/07/2020 by Bruno Ortega DO at [facility] Screw Left: Knee [employer] 09/20/20295983- 0-48 / NA / [id number] Insurance MEDICARE [employer] [place] Advance Directives * Full Code (Latest Code Status on File) Date Activated Date Inactivated Comments 05/07/2020 2:06 PM 05/08/2020 3:38 PM Care Teams Tool Room Attendant Relationship Specialty Start Date End Date Efe Morris MD PCP - General Family Medicine 04/12/19
--- OUTSIDE RECORDS SUMMARY | 2025-05-14 14:22 | XMS_ITS | Encounter Summary ---
Author Organization [facility] Address [address] [place] [address] Care Team Providers Care Materials Handler Name Role Phone Efe Morris MD Primary Care Provider [phone] Reason for Visit * Reason Comments Medication Refill Encounter Details Date Type Department Care Team (Late st Contact Info) Description 11/20/2020 Refill [facility] [address] [place] [id number] Raymond Dotson, GLORIA-TEST CASE DEVELOPER [address] [place] [id number] Social History Tobacco Use Types Packs/Day Years Used Date Smoking Tobacco: Former Cigarettes Smokeless Tobacco: Never Comments:quit 40 yrs ago Alcohol Use Standard Drinks/Week Comments Not Currently 0 (1 standard drink = 0.6 oz pur e alcohol) Sex and Gender Information Value Date Recorded Sex Assigned at Not on file Legal Sex Male 9:42 AM EDT Gender Identity Not on file Sexual Orientation Not on file COVID-19 Exposure Response Date Recorded In the last month, have you been in contact with someone who was confirmed or suspected to have Coronavirus / COVID-19? No / Unsure 10/28/2020 9:04 AM EST documented as of this encounter Functional Status * Are you deaf or do you have serious difficulty hearing? Answer Date of Assessment Author No 10/28/2020 3:15 PM Charlotte Laguerre, RN * Are you blind or do you have serious difficulty seeing, even when wearing glasses? Answer Date of Assessment Author No 10/28/2020 3:15 PM Charlotte Laguerre, RN * Do you have serious difficulty walking or climbing stairs (5 years or older)? Answer Date of Assessment Author No 10/28/2020 3:15 PM Charlotte Laguerre, RN * Do you have difficulty dressing or bathing (5 yrs or older)? Answer Date of Assessment Author Yes 10/28/2020 3:15 PM Charlotte Laguerre RN * Because of a physical, mental, or emotional condition, do you have difficulty doing errands alone such as visiting a doctor's office or shopping (5 yrs or older)? Answer Date of Assessment Author No 10/28/2020 3:15 PM Charlotte Laguerre RN documented as of this encounter Mental Status * Because of a physical, mental, or emotional condition, do you have serious difficulty concentrating, remembering, or making decisions (5 yrs or older)? Answer Entry Date Author No 10/28/2020 3:15 PM Charlotte Laguerre RN documented in this encounter Plan of Treatment Not on file documented as of this encounter Visit Diagnoses Not on filedocumented in this encounter Care Teams Materials Handler Relationship Specialty Start Date End Date Efe Morris MD PCP - General Family Medicine 09/11/20 documented as of this encounter
--- OUTSIDE RECORDS SUMMARY | 2025-05-14 14:22 | XMS_ITS | Referral Summary ---
Author Organization [facility] Address [address] [place] [address] Care Team Providers Care Field Care Advocate Name Role Phone Unavailable Primary Care Provider Unavailabl e Social History Tobacco Use Types Packs/Day Years Used Date Smoking Tobacco: Never Assessed [place] Safety & Environment Answer Date Rec orded Fear of Current or Ex-Partner Not on file Emotionally Abused Not on file 01/12/2024 Physically Abused Not on file 01/12/2024 Sexually Abused Not on file 01/12/2024 Physically or Sexually Abused Not on file Sex and Gender Information Value Date Recorded Sex Assigned at Not on file Legal Sex Male 12:02 AM EDT Gender Identity Not on file Sexual Orientation Not on file Plan of Treatment Not on file
--- OUTSIDE RECORDS SUMMARY | 2025-05-14 14:23 | XMS_ITS | Clinical Summary ---
Author Organization [facility] Address [address] [place] [address] Care Team Providers Care Louver Door Assembler Name Role Phone Efe Morris MD Primary Care Provider [phone] Allergies Active Allergy Reactions Criticality Noted Date Comments Penicillins 09/11/2020 Sulfa Antibiotics 09/11/2020 Medications aspirin EC [address] Take 1 tablet by mouth daily. Active doxazosin 4 MG tablet Take 4 mg by mouth Every night. Active pantoprazole [address] tablet DR Take 1 tablet by mouth daily. Active temazepam 15 MG capsule Take 1 capsule by mouth at bedtime as needed. 0 Active pravastatin 20 MG tablet Take 2 tablets by mouth daily. Active SUMAtriptan 100 MG tablet Take 1 tablet by mouth once. May repeat in 2 hr, MAX 200MG/24HR Active pregabalin 75 MG capsule Take 75 mg by mouth 2 times daily. Active Multiple Vitamin (multivitamin) capsule Take 1 capsule by mouth daily. Active aspirin EC [address] Take 1 table twice a day for 30days. This medication is for blood clot prevention. 60 tablet 0 Active Additional Information Patient not taking.Reported on 02/26/2021 docusate 100 MG capsule Take 1 capsule by mouth 2 times daily. 60 capsule 0 Active acetaminophen 325 MG tablet Take 2 tablets by mouth every 4 hours as needed for Mild Pain. 50 tablet 1 0 Active meloxicam 7.5 MG tablet Take 1 tablet by mouth daily. 30 tablet 0 Active Additional Information Patient not taking.Reported on 02/26/2021 dexAMETHasone 4 MG/ML Solution injection 1 mL by Other route As directed for 18 doses. (1 cc 3 x a week at physical therapy via iontophoresis) for up to 18 doses. 30 mL 2 Active lisinopril 10 MG tablet Take 1 tablet by mouth daily. 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 10/28/2020 Obesity: body mass index of 30.0-34.9 10/28/2020 Social History Tobacco Use Types Packs/Day Years Used Date Smoking Tobacco: Former Cigarettes Smokeless Tobacco: Never Tobacco Cessation:Counseling Given: Not Answered Comments:quit 40 yrs ago Alcohol Use Standard Drinks/Week Comments Not Currently 0 (1 standard drink = 0.6 oz pur e alcohol) Sex and Gender Information Value Date Recorded Sex Assigned at Not on file Legal Sex Male 9:42 AM EDT Gender Identity Not on file Sexual Orientation Not on file Last Filed Vital Signs Vital Sign Reading Time Taken Comments Blood Pressure 148/72 10/29/2020 3:11 PM EST Pulse 74 10/29/2020 3:11 PM EST Temperature 36.5 C (97.7 F) 05/26/2022 7:57 AM EDT Respiratory Rate 16 10/29/2020 3:11 PM EST Oxygen Saturation 100% 10/29/2020 3:11 PM EST Inhaled Oxygen Concentration - - Weight 102.1 kg (225 lb) 11/23/2023 8:25 AM EST Height 172.7 cm (5' 8 ) 11/23/2023 8:25 AM EST Body Mass Index 34.21 11/23/2023 8:25 AM EST Plan of Treatment Health Maintenance Due Date Last Done Comments HEPATITIS C VIRUS SCREENING 1951 TETANUS 1951 TDAP (ADULT) 1970 LIPID SCREENING 1991 COLORECTAL CANCER SCREENING DISCUSSION 01/25/1996 ZOSTER (SHINGLES) VACCINE (1 of 2) 2001 ABDOMINAL AORTIC ANEURYSM HIGH RISK SCREEN 01/25/2016 PNEUMOCOCCAL VACCINE SERIES (2 of 2 - PCV) 08/21/2018 08/21/2017, 08/01/2017, 06/27/2017 COVID-19 VACCINE ( season) 2024 09/22/2023, 09/24/2022, 03/29/2022, Additional history exists INFLUENZA VACCINE (Season Ended) 2025 08/31/2022, 09/03/2020, 09/04/2019, Additional history exists RSV VACCINE (1 - 1-dose 75+ series) 2026 HEP B VACCINE Aged Out No longer elig ible based on patient's age to complete this topic Medical Devices Implanted Type Area Business Coordinator Device Identifier Shelf Expiration Date Model / Serial / Lot Palacos R+G 1x40 (Bone Cement) Implanted:Qty: 3 on 10/28/2020 by Barak Fernández MD at [facility] Left: Knee 01/18/2023 [id number] / / [id number] Attune Knee System Revision Crs Rotating Platform Insert Size 7 8mm Aox Implanted:Qty: 1 on 10/28/2020 by Barak Fernández MD at [facility] Left: Knee [employer] 01/18/2025 1517-10-708 / / [id number] Attune Knee System Revision Distal Femoral Augment Implanted:Qty: 1 on 10/28/2020 by Barak Fernández MD at [facility] Left: Knee [employer] 08/20/2029 1547-07-001 / / [id number] Attune Knee System Revision Tibial Base Rotating Platform Size 6 Cemented Implanted:Qty: 1 on 10/28/2020 by Barak Fernández MD at [facility] Left: Knee [employer] 05/20/2029 1506-60-006 / / [id number] Attune Knee System Revision Pressfit Stem 12mm X60mm Implanted:Qty: 1 on 10/28/2020 by Barak Fernández MD at [facility] Left: Knee [employer] 07/21/2030 1513-12-060 / / [id number] Attune Knee System Revision Pressfit Stem 16mm X 110mm Implanted:Qty: 1 on 10/28/2020 by Barak Fernández MD at [facility] Left: Knee [employer] 09/20/2029 1513-16-110 / / [id number] Attune Knee System Revision Tibial Sleeve Porocoat Partially Coated 29mm Implanted:Qty: 1 on 10/28/2020 by Barak Fernández MD at [facility] Left: Knee [employer] 05/20/2029 1511-11-101 / / [id number] Attune Knee System Revision Crs Femoral Size 7 Left Cemented Implanted:Qty: 1 on 10/28/2020 by Barak Fernández MD at [facility] Left: Knee [employer] 11/20/2028 1504-40-107 / / [id number] Attune Knee System Revision Posterior Femoral Augment Size 7 8mm Cemented Implanted:Qty: 1 on 10/28/2020 by Barak Fernández MD at [facility] Left: Knee [employer] 05/20/2030 1549-07-002 / / [id number] Attune Knee System Revision Posterior Femoral Augment Size 7 4mm Cemented Implanted:Qty: 1 on 10/28/2020 by Barak Fernández MD at [facility] Left: Knee [employer] 04/20/2030 1549-07-001 / / [id number] Insurance MEDICARE A AND B MEDICARE SUPPLEMENT Advance Directives For more information, please contact: [phone] (7:30 AM - 6PM [facility], Tuesday-Tuesday) Documents on File Type Date Recorded Patient Title I Instructional Assistant Expl anation Advance Directives/Living Will 10/28/2020 9:12 AM LIVING WILL, FILIBERTO * Full Code (Latest Code Status on File) Date Activated Date Inactivated Comments 10/28/2020 3:43 PM Care Teams Louver Door Assembler Relationship Specialty Start Date End Date Efe Morris MD PCP - General Family Medicine 09/11/20
--- OUTSIDE RECORDS SUMMARY | 2025-05-14 14:23 | XMS_ITS | Encounter Summary ---
Author Organization [facility] Address [address] [place] [id number] Care Team Providers Care Speech Lang Path Therapist Name Role Phone Efe Morris MD Primary Care Provider [phone] Source Comments In the event this information is protected by the Federal Confidentiality of Alcohol and Drug AbusePatient Records regulations: The Federal rules restrict any use of the information to criminally investigate or prosecute any alcohol or drug abuse patient.[facility] Encounter Details Date Type Department Care Team (Late st Contact Info) Description 02/24/2019 Patient Msg Pulmonary Medicine [address] [address] Kristian Ivory [address] [place] [address] scan Social History Tobacco Use Types Packs/Day Years Used Date Smoking Tobacco: Former Cigarettes 1 20 0 11/21/1962 - 11/21/1982 Smokeless Tobacco: Never Alcohol Use Standard Drinks/Week Comments Yes 0 (1 standard drink = 0.6 oz pur e alcohol) a few drinks Sex and Gender Information Value Date Recorded Sex Assigned at Not on file Legal Sex Male 10:46 AM EST Gender Identity Not on file Sexual Orientation Not on file documented as of this encounter Plan of Treatment Not on file documented as of this encounter Visit Diagnoses Not on filedocumented in this encounter Care Teams Speech Lang Path Therapist Relationship Specialty Start Date End Date Efe Morris MD PCP - General Family Medicine 11/07/17 documented as of this encounter
--- OUTSIDE RECORDS SUMMARY | 2025-05-14 14:23 | XMS_ITS | Clinical Summary ---
Author Organization [facility] Address [address] [place] [address] Care Team Providers Care Geometry Professor Name Role Phone Unavailable Primary Care Provider [...] Orientation Not on file Plan of Treatment Health Maintenance Due Date Last Done Comments CT Colonography 1951 Colonoscopy 1951 Colorectal Cancer Screening 1951 FIT-DNA 1951 FIT 1951 FOBT 1951 Sigmoidoscopy 1951 Depression Screening 1963 Adult Tetanus 1973 Pneumococcal Vaccine: 50+ Ye ars (1 of 1 - PCV) 2001 Zoster Vaccines (1 of 2) 2001 Fall Risk Screening 01/25/2016 COVID-19 Vaccine (2023-2 5 season) 2024 Influenza Vaccine (Season Ended) 2025 HIB Vaccines Aged Out No longer eligi ble based on patient's age to complete this topic HPV Vaccines Aged Out No longer eligi ble based on patient's age to complete this topic IPV Vaccines Aged Out No longer eligi ble based on patient's age to complete this topic Meningococcal B Vaccine Aged Out No l onger eligible based on patient's age to complete this topic Meningococcal Vaccine Aged Out No vincent adam eligible based on patient's age to complete this topic Rotavirus Vaccines Aged Out No longer eligible based on patient's age to complete this topic
--- OUTSIDE RECORDS SUMMARY | 2025-05-14 14:23 | XMS_ITS | Clinical Summary ---
Author Organization [facility] Address [address] [place] [id number] Care Team Providers Care Client Associate Name Role Phone Efe Morris MD Primary Care Provider [phone] Allergies Active Allergy Reactions Criticality Noted Date Comments Sulfa (Sulfonamide Antibiotics) Unknown 03/20/2018 Reaction as a kid - unsure Medications pantoprazole DR (PROTONIX) 40 mg tablet Take 40 mg by mouth once daily. Active pravastatin (PRAVACHOL) 40 mg tablet Take 40 mg by mouth once daily. Active SUMAtriptan (IMITREX) 100 mg tablet Take 100 mg by mouth as needed. Active aspirin, enteric coated (ASPIRIN, ENTERIC COATED) 81 mg EC tablet Take 81 mg by mouth once daily. Active Active Problems Problem Noted Date Diagnosed Date Multiple lung nodules 04/16/2018 Obesity, Class II, BMI 35-39.9 E66.9 02/17/2018 ILD (interstitial lung disease) 02/17/2018 Immunizations Immunization Administration Dates Next Due pneumococcal polysaccharide (PPV23) vaccine, 23 valent (PNEUMOVAX 23) 08/21/2017 Family History Medical History Relation Comments Alzheimer's Disease Father Alzheimer's Disease Mother Relation Status Comments Father Mother Social History Tobacco Use Types Packs/Day Years Used Date Smoking Tobacco: Former Cigarettes 1 20 0 11/21/1962 - 11/21/1982 Smokeless Tobacco: Never Alcohol Use Standard Drinks/Week Comments Yes 0 (1 standard drink = 0.6 oz pur e alcohol) a few drinks Area Deprivation Index Answer Date Mike rded National Score (1-100), lower number is lower ri sk Not on file 10/28/2020 State Score (1-10), lower number is lower risk N ot on file 10/28/2020 Data from: https://www.neighborhoodatlas.med[facility].edu/. Last address used for calculation Not on file 10/28/2020 Sex and Gender Information Value Date Recorded Sex Assigned at Not on file Legal Sex Male 10:46 AM EST Gender Identity Not on file Sexual Orientation Not on file Last Filed Vital Signs Vital Sign Reading Time Taken Comments Blood Pressure 144/87 02/23/2019 2:01 PM EDT Pulse 69 02/23/2019 2:01 PM EDT Temperature 36.3 C (97.4 F) 02/23/2019 2:01 PM EDT Respiratory Rate 18 02/23/2019 2:01 PM EDT Oxygen Saturation 95% 02/23/2019 2:01 PM EDT Inhaled Oxygen Concentration - - Weight 106.6 kg (235 lb) 02/23/2019 2:01 PM EDT Height 172.7 cm (5' 8 ) 02/23/2019 2:01 PM EDT Body Mass Index 35.73 02/23/2019 2:01 PM EDT Plan of Treatment Health Maintenance Due Date Last Done Comments Abdominal Aortic Aneurysm Screening 1951 Anxiety Screening 1969 Depression Screening 1969 Hepatitis C Screening 1969 DTaP,Tdap,Td Vaccine (1 - Tdap) [address] Colonography 01/25/1996 Cologuard (FIT-DNA) 01/25/1996 Colonoscopy 01/25/1996 Colorectal Cancer Screening 01/25/1996 Diabetes Screening 01/25/1996 Fecal Occult Blood 01/25/1996 Sigmoidoscopy 01/25/1996 Shingrix Vaccine (1 of 2) 2001 Pneumococcal Vaccine: 50+ (2 of 2 - PCV) 08/21/2018 08/21/2017, 08/01/2017, 06/27/2017 Covid-19 Vaccine ( - 2023- season) 2024 Advance Directive Discussion 11/21/2024 Influenza Vaccine (Season Ended) 2025 08/22/2018, 08/24/2017, 09/09/2016 RSV Vaccine (1 - 1-dose 75+ series) 2026 Insurance MEDICARE Care Teams Client Associate Relationship Specialty Start Date End Date Efe Morris MD PCP - General Family Medicine 11/07/17
--- OUTSIDE RECORDS SUMMARY | 2025-05-14 14:23 | XMS_ITS | Encounter Summary ---
Author Organization [facility] Address [address] [place] [address] Phone Care Team Providers Care Carpenter Railcar Name Role Phone Efe Morris MD Primary Care Provider [phone] Encounter Details Date Type Department Care Team (Late Contact Info) Description 04/18/2025 Scanned Document [facility] [address] [place] [id number] Scanning, Generic Provider Social History Tobacco Use Types Packs/Day Years Used Date Smoking Tobacco: Former Cigarettes Smokeless Tobacco: Never Alcohol Use Standard Drinks/Week Comments Yes 0 (1 standard drink = 0.6 oz pur e alcohol) occ Sex and Gender Information Value Date Recorded Sex Assigned at Not on file Legal Sex Male 11:53 AM EDT Gender Identity Not on file Sexual Orientation Not on file COVID-19 Exposure Response Date Recorded In the last 10 days, have yo u been in contact with someone who was confirmed or suspected to have Coronavirus/COVID-19? No / Unsure 03/26/2025 7:41 AM EDT documented as of this encounter Plan of Treatment Upcoming Encounters Date Type Department Care Team (Late Contact Info) Description 01/07/2026 8:40 AM EST Office Visit [place] [address] [place] [phone] Fidelina Albarado MD [address] [facility] [address] [place] [address] documented as of this encounter Procedures Procedure Name Priority Date/Time Associated Diagnosis Comments NUCLEAR STRESS TEST - ONBASE SCAN 04/18/2025 STRESS TEST - ONBASE SCAN 04/18/2025 ECHOCARDIOGRAM 04/18/2025 documented in this encounter Results * Nuclear Stress Test - Onbase Scan (04/18/2025) Narrative 04/18/2025 Ordered by an unspecified provider. us Generic Provider Scanning CV STRESS PROCEDURES F inal Result * Echocardiogram (04/18/2025) Narrative 04/18/2025 Ordered by an unspecified provider. us Generic Provider Scanning CV ECHO PROCEDURES Fin al Result * Stress Test - Onbase Scan (04/18/2025) Narrative 04/18/2025 Ordered by an unspecified provider. us Generic Provider Scanning CV STRESS PROCEDURES F inal Result documented in this encounter Visit Diagnoses Not on filedocumented in this encounter Additional Health Concerns Assessment Noted Time A fall risk assessment has been complete d for the patient 03/18/2025 9:26 AM EDT documented as of this encounter Care Teams Carpenter Railcar Relationship Specialty Start Date End Date Efe Morris MD [address] [facility] [place] [address] PCP - General Family Medicine 03/14/25 documented as of this encounter
--- OUTSIDE RECORDS SUMMARY | 2025-05-14 14:23 | XMS_ITS | Encounter Summary ---
Author Organization [facility] Address [address] [place] [address] Phone Care Team Providers Care Email Designer Name Role Phone Efe Morris MD Primary Care Provider + [phone] Reason for Visit * Reason Onset Date Comments med hold 05/13/2025 Encounter Details Date Type Department Care Team (Late st Contact Info) Description 05/13/2025 Telephone [facility] [address] [facility] [address] [place] [address] Julissa Alonso LPN med hold Social History Tobacco Use Types Packs/Day Years [...] AM EDT documented as of this encounter Miscellaneous Notes * Telephone Encounter - Rafaela Tabares LPN - 05/13/2025 4:28 PM EDT Faxed. * Telephone Encounter - Julissa Alonso LPN - 05/13/2025 9:32 AM EDT Teresa from Dr. Obey Mahmood's office phoned requesting ok to hold pradaxa 2 days prior too Patient is scheduled for Egd/colonoscopy 05/22/2025. Phone-[phone] Fax-[phone] documented in this encounter Plan of Treatment Upcoming Encounters Date Type Department Care Team (Late st Contact Info) Description 01/07/2026 8:40 AM EST Office Visit [address] [place] [phone] Fidelina Albarado MD [address] [facility] [address] [place] [address] documented as of this encounter Visit Diagnoses Not on filedocumented in this encounter Additional Health Concerns Assessment Noted Time A fall risk assessment has been complete d for the patient 05/02/2025 10:56 AM EDT documented as of this encounter Care Teams Email Designer Relationship Specialty Start Date End Date Efe Morris MD [address] [facility] [place] [address] PCP - General Family Medicine 03/14/25 documented as of this encounter
--- OUTSIDE RECORDS SUMMARY | 2025-05-14 14:23 | XMS_ITS | Clinical Summary ---
Author Organization [facility] Address [address] [place] [address] Phone Care Team Providers Care Washing Tub Operator Name Role Phone Efe Morris MD Primary Care Provider [phone] Allergies Active Allergy Reactions Criticality Noted Date Comments Sulfa (Sulfonamide Antibiotics) Unknown Low 10/25/2017 As a child Other Reaction(s): Other (See Comments), Unknown As a child Pt unsure reaction Reaction as a kid - unsure Pt unsure reaction Reaction as a kid - unsure Medications pravastatin (Pravachol) 40 mg tablet Take 1 tablet (40 mg) by mouth once daily in the evening. For cholesterol Active irbesartan (Avapro) 300 mg tablet Take 1 tablet (300 mg) by mouth once daily. Active tamsulosin (Flomax) 0.4 mg 24 hr capsule Take 1 capsule (0.4 mg) by mouth once daily. Active amLODIPine (Norvasc) 2.5 mg tablet Take 1 tablet (2.5 mg) by mouth early in the morning.. 02/22/20 25 Active temazepam (Restoril) 15 mg capsule Take 10 mg by mouth as needed at bedtime for sleep. 02/13/20 25 Active dabigatran etexilate (Pradaxa) 150 mg capsuleIndicatio ns:Paroxysmal atrial fibrillation (Multi) Take 1 capsule (150 mg) by mouth 2 times a day. Do not crush or chew. 180 capsule 3 04/09/20 25 026 Active metoprolol succinate XL (Toprol-XL) 25 mg 24 hr tabletIndication s:Paroxysmal A-fib (Multi) Take 1 tablet (25 mg) by mouth once daily. Do not crush or chew. 90 tablet 3 04/16/20 026 Active flecainide (Tambocor) 50 mg tabletIndication s:Paroxysmal atrial fibrillation (Multi) Take 1 tablet (50 mg) by mouth 2 times a day. 180 tablet 3 05/02/20 026 Active gabapentin (Neurontin) 300 mg capsule Take 1 capsule (300 mg) by mouth once daily. 025 Discontin ued(Thera py completed ) irbesartan (Avapro) 150 mg tablet Take 1 tablet (150 mg) by mouth once daily. 025 Discontin ued(Thera py completed ) Active Problems Problem Noted Date Diagnosed Date Former smoker 05/02/2025 High risk medication use 05/02/2025 Paroxysmal atrial fibrillation (Multi) Encounter to discuss test results 05/02/2025 Dyspnea 03/18/2025 Assessment & Plan (03/19/2025 10:21 AM EDT): Presents with concerns of progressive dyspnea on exertion 'on & off for years' but recent increase while inadvertently not taking neurontin. Palpitations 03/18/2025 Assessment & Plan (03/19/2025 10:18 AM EDT): Occurs with activity - over weekend had to stop twice while planting roses due to elevated heart rate & palpitations. ECG in office: NSR Fatigue 03/18/2025 Assessment & Plan (03/19/2025 10:22 AM EDT): Reports change in exercise capacity and functional tolerance over last 3 months. Abnormal EKG 03/18/2025 Assessment & Plan (03/19/2025 10:19 AM EDT): TWI III & AVF PRWP anterior leads BMI 34.0-34.9,adult 03/18/2025 Assessment & Plan (03/19/2025 10:20 AM EDT): Reviewed the merits of healthy lifestyle choices on overall cardiovascular health. Essential hypertension 03/18/2025 Assessment & Plan (03/19/2025 10:20 AM EDT): Optimally treated on low dose amlodipine & avapro Mixed hyperlipidemia 03/18/2025 Assessment & Plan (03/19/2025 10:20 AM EDT): Moderate intensity statin Encounters Date Type Department Care Team Description 05/13/2025 Telephone [facility] [address] [place] [address] [address] [place] [address] Julissa Alonso LPN med hold 05/09/2025 10:00 AM EDT Ancillary Procedure [address] [place] [address] Paroxysmal atrial fibrillation (Multi) 05/08/2025 Travel 05/02/2025 11:30 AM EDT Office Visit [address] [place] [address] Fidelina Albarado MD Paroxysmal atrial fibrillation (Multi); High risk medication use; Encounter to discuss test results; Essential hypertension; Mixed hyperlipidemia; BMI 34.0-34.9,adult; Former smoker 05/02/2025 Travel 04/28/2025 Travel 04/19/2025 Telephone [facility] [address] [address] Rafaela Tabares LPN Results 04/19/2025 Orders Only [facility] [address] [place] [address] Naty Foley, FOREIGN BANKNOTE TELLER-MENTAL HEALTH TECH 04/18/2025 Scanned Document [facility] [address] [place] [address] Scanning, Generic Provider 04/18/2025 Orders Only [facility] [address] [place] [address] Naty Foley, FOREIGN BANKNOTE TELLER-MENTAL HEALTH TECH 04/16/[address] [place] [address] Rafaela Tabares, PHP PROGRAMMER Paroxysmal A-fib (Multi) 03/28/2025 Refill [facility] [address] [place] [address] [address] [place] [address] TabaresRaulna, PHP PROGRAMMER Paroxysmal atrial fibrillation (Multi) (Primary Dx) 03/26/2025 8:00 AM EDT Ancillary Procedure [address] [place] [address] Palpitations 03/26/2025 Documentation [facility] [address] [facility] [address] [place] [address] Teresa Polanco MA 03/26/2025 Orders Only [facility] [address] [place] [address] Naty Foley APRN-CARINE 03/26/2025 Travel 03/18/2025 9:30 AM EDT Office Visit [address] [place] [address] Naty Foley FOREIGN BANKNOTE TELLER-MENTAL HEALTH TECH Dyspnea on exertion (Primary Dx); Palpitations; Abnormal EKG; Other fatigue; BMI 35.0-35.9,adult; Mixed hyperlipidemia; Essential hypertension 03/18/2025 Telephone [facility] [address] [facility] [address] [place] [address] Naty Foley APRN-CARINE 03/18/2025 Travel from Last 3 Months Immunizations Immunization Administration Dates Next Due Influenza, seasonal, injectable 09/21/2024 Tdap vaccine, age 7 year and older (BOOSTRIX, AD ACEL) 09/23/2024 Family History Medical History Relation Name Comments Alzheimer's disease Father Alzheimer's disease Mother heart issues Mother Relation Name Status Comments Father Mother Social History Tobacco Use Types Packs/Day Years Used Date Smoking Tobacco: Former Cigarettes Smokeless Tobacco: Never Tobacco Cessation:Counseling Given: Not Answered Alcohol Use Standard Drinks/Week Comments Yes 0 [...] No / Unsure 05/02/2025 10:50 AM EDT Last Filed Vital Signs Vital Sign Reading [...] Mass Index 33.75 05/09/2025 9:59 AM EDT Plan of Treatment Upcoming Encounters Date Type Department Care Team (Late st Contact Info) Description 01/07/2026 8:40 AM EST Office Visit [address] [place] [address] Fidelina Albarado MD 703 [facility] [address] [place] [address] Health Maintenance Due Date Last Done Comments CT Colonography 1950 FIT-DNA (Cologuard) 1950 FIT 1950 Lipid Panel 1950 Medicare Annual Wellness Visit (AWV) 1950 Sigmoidoscopy 1950 Hepatitis C Screening 1969 Pneumococcal Vaccine (1 of 2 - PCV) 1970 Zoster Vaccines (1 of 2) 2001 RSV High Risk: (Elderly (60+) or Population) (1 - Risk 60-74 years 1-dose series) 2011 Abdominal Aortic Aneurysm (AAA) Screening 01/25/2016 Diabetes Screening 10/02/2021 10/02/2020 COVID-19 Vaccine ( season) 2024 09/22/2023, 09/24/2022, 03/29/2022, Additional history exists Colonoscopy 07/25/2029 07/25/2019 Colorectal Cancer Screening 07/25/2029 DTaP/Tdap/Td Vaccines (2 - Td or Tdap) 09/23/2034 09/23/2024 Influenza Vaccine Completed 09/21/2024 HIB Vaccines Aged Out No longer eligi ble based on patient's age to complete this topic HPV Vaccines Aged Out No longer eligi ble based on patient's age to complete this topic Hepatitis A Vaccines Aged Out No long er eligible based on patient's age to complete this topic Hepatitis B Vaccines Aged Out No long er eligible based on patient's age to complete this topic IPV Vaccines Aged Out No longer eligi ble based on patient's age to complete this topic Meningococcal Vaccine Aged Out No vincent adam eligible based on patient's age to complete this topic Rotavirus Vaccines Aged Out No longer eligible based on patient's age to complete this topic Procedures Procedure Name Priority Date/Time Associated Diagnosis Comments ECG 12-LEAD Routine 05/09/2025 9:33 AM EDT Paroxysmal atrial fibrillation (Multi) NM MYOCARDIAL PERFUSION PLANAR S AND R W EF AND WM 04/19/2025 1:22 PM EDT ECHOCARDIOGRAM 04/18/2025 10:19 AM EDT [facility] LIPID PANEL Routine 8:40 AM EDT [facility] ALANINE AMINOTRANSFERASE Routine 04/18/2025 8:40 AM EDT [facility] ASPARTATE AMINO TRANSFERASE Routine 04/18/2025 8:40 AM EDT [facility] COMPLETE BLOOD COUNT AUTO DIFF Routine 04/18/2025 8:40 AM EDT ECHOCARDIOGRAM 04/18/2025 NUCLEAR STRESS TEST - ONBASE SCAN 04/18/2025 STRESS TEST - ONBASE SCAN 04/18/2025 [facility] LIPID PANEL Routine 9:09 AM EDT [facility] ALANINE AMINOTRANSFERASE Routine 03/26/2025 9:09 AM EDT [facility] ASPARTATE AMINO TRANSFERASE Routine 03/26/2025 9:09 AM EDT [facility] BASIC METABOLIC PANEL Routine 03/26/2025 9:09 AM EDT [facility] COMPLETE BLOOD COUNT AUTO DIFF Routine 03/26/2025 9:09 AM EDT CARDIAC EVENT MONITOR CONTINUOUS UP TO 30 DAYS - HOOK-UP, PHYSICIAN READ Routine 03/26/2025 8:11 AM EDT Palpitations ECG 12-LEAD Routine 03/18/2025 9:30 AM EDT Dyspnea on exertion from Last 3 Months Results * ECG 12 Lead (05/09/2025 9:33 AM EDT) Only the most recent of2 resultswithin the time period is included. Narrative CPACS - 05/09/2025 2:17 PM EDT Sinus bradycardia, T wave inversion inferiorly, low voltage QRS complex, abnormal ECG us Fidelina Albarado MD ECG ORDERABLES Final Result [facility] * NM myocardial perfusion planar S and R w EF and WM (04/19/2025 1:22 PM EDT) Anatomical Region Laterality Modality Head neck Nuclear Medicine 04/19/2025 1:22 PM EDT Narrative 04/19/2025 1:25 PM EDT [place] [address] Nuclear Medicine Report Signed Patient: López Borjas MR#: [id number] : 1950 Acct:[id number] Age/Sex: 75 / M ADM Date: 04/18/25 Loc: Room: Type: [facility] Attending Dr: Naty Foley FOREIGN BANKNOTE TELLER Copies to: GLORIA Domínguez MD Ordering Provider: Naty Foley APRN Date of Service: 04/18/25 NM/NM katya perf SPECT rest str: SOB NUCLEAR MYOCARDIAL PERFUSION DATE OF PROCEDURE: 04/09/2025 ATTENDING PAINT STOCK CLERK: Dr. Eip Paredes REQUESTING PHYSICIAN: Steffanie Foley PROCEDURE: The [...] Paredes M.D. 04/19/2025 1:23 PM Dictation Location: [place] [address] Transcribed By: TANO 04/19/25 1323 Dictated By: Epi Paredes MD 04/19/25 1322 Signed By: <Electronically signed by Epi Paredes MD in OV> 04/19/25 1323 us Naty Foley APRN-[facility] IMG NM PROCEDURES Final R esult * Echocardiogram (04/18/2025 10:19 AM EDT) 04/18/2025 10:1 9 AM EDT Narrative [facility] - 04/18/2025 6:41 PM EDT [facility] Main [place] [id number] Echocardiogram Signed Patient: López Borjas MR#: [id number] : 1950 Acct:[id number] Age/Sex: 75 / M ADM Date: 04/18/25 Loc: Room: Type: [facility] Attending Dr: Naty Foley APRN Ordering Provider: Naty Foley APRN Date of Service: 04/18/25/ ECH/ECH echo transthoracic: Dyspnea. Palpitations. Abnormal EKG. HTN. Copies to: GLORIA Domínguez MD P 10:19 AM Patient Location: : 1950 Gender: Male (MM/DD/YYYY) Age: 75 Years Ordering Physician: Naty Foley Height: 67.72 in Referring Physician: Barbara Galdamez Weight: 229.003 lb Performed By: Jennifer Laguerre RDCS BSA: 2.16 m2 BP: 132 / 82 [...] PM : + + + Transcribed By: SCV Performed At: 04/18/25 1019 Signed By: Epi Paredes MD 04/18/25 4159 us Naty Foley FOREIGN BANKNOTE TELLER-MENTAL HEALTH TECH CV ECHO PROCEDURES Final Result [facility] [place] [address], [place] * (ABNORMAL) [facility] Complete Blood Count Auto Diff (04/18/2025 8:40 AM EDT) Only the most recent of2 resultswithin the time period is included. [facility] White Blood Count 7.4 4.1 - 10.5 10*3/uL [facility] Uncorrected WBC 7.4 4.1 - 10.5 10*3/uL [facility] Red Blood Count 5.15 3.90 - 5.60 10*6/uL [facility] Hemoglobin 16.5 13.0 - 17.0 g/dL [facility] Hematocrit 48.5 38.8 - 50.0 % [facility] Mean Corpuscular Volume 94.3 83.5 - 101 fL [facility] Mean Corpuscular Hemoglobin 32.0 27.5 - 35.2 pg [facility] Mean Corpuscular HGB Conc 33.9 32.5 - 35.6 g/dL [facility] Red Cell Distribution Width 14.0 12.0 - 14.8 % [facility] Platelet Count 213 150 - 450 10*3/uL [facility] Mean Platelet Volume 9.0 6.6 - 10.1 fL [facility] Neutrophils % (Auto) 68.1 . % [facility] Lymphocytes % (Auto) 17.0 . % [facility] Monocytes % (Auto) 11.6 . % [facility] Eosinophils % (Auto) 2.6 . % [facility] Basophils % (Auto) 0.7 . % [facility] NRBC% 0.1 0 - 0.5 /100{WBC} [facility] Neutrophils # (Auto) 5.0 1.8 - 7.7 10*3/uL [facility] Lymphocytes # (Auto) 1.3 1.00 - 4.8 10*3/uL [facility] Monocytes # (Auto) 0.9(H) 0.0 - 0.8 10*3/uL [facility] Eosinophils # (Auto) 0.2 0.0 - 0.45 10*3/uL [facility] Basophils # (Auto) 0.1 0.0 - 0.2 10*3/uL [facility] Comment:PERFORMED BY:[facility] [place], [place] [id number] MEDICAL DIRECTORAMBROSE OLSON [facility] Whole blood specimen 04/18/2025 8:40 AM EDT Naty Foley FOREIGN BANKNOTE TELLER-MENTAL HEALTH TECH LAB BLOOD ORDERABLES Anabella velarde Result [facility] [address] [place] [address], [facility] [address] [place] [address] * (ABNORMAL) [facility] Lipid Panel (04/18/2025 8:40 AM EDT) Only the most recent of2 resultswithin the time period is included. [facility] Cholesterol 127(L) 140 - 200 mg/dL [facility] Comment:Chol less than 200 m g/dl low risk Chol 201-239 mg/dl borderline risk Chol 240 mg/dl and greater high risk [facility] HIE HDL Cholesterol 42 23 - 92 mg/dL [facility] Comment:HDL CHOL ATP-III CLA SSIFICATION Cardiovascular Risk HDL > or equal to 60 mg/dL LOW HDL < 40 mg/dL HIGH NON-[facility] HIE Triglyceride w/Reflex 89 0 - 149 mg/dL [facility] Comment:TRIG ATP III CLASSIF ICATION TRIG less than 150 mg/dL Normal TRIG 150-199 mg/dL Borderline high TRIG 200-500 mg/dL High TRIG greater than 500 mg/dL Very high Standard traceable to the Center for Disease Conrtrol and Prevention (CDC) test method. [facility] LDL Cholesterol,Calcula zackary 67 0 - 100 mg/dL [facility] Comment:LDL ATP III CLASSIFI CATION LDL less than 100 mg/dL Optimal LDL 100-129 mg/dL Near or above optimal LDL 130-159 mg/dL Borderline high LDL 160-189 mg/dL High LDL greater than 189 mg/dL Very high [facility] VLDL CHOLESTEROL 17 mg/dL [facility] Chol/HDL Ratio 3.0 <5.0 [facility] Comment:PERFORMED BY:[address] [id number] MEDICAL DIRECTORAMBROSE OLSON [facility] Plasma specimen or serum specimen or whole blood specimen 04/18/2025 8:40 AM EDT Naty Foley FOREIGN BANKNOTE TELLER-MENTAL HEALTH TECH LAB BLOOD ORDERABLES Anabella l Result Performing Organization Address City/[facility]/ZIP Co de Phone Number [facility] [address] [place] [address], [facility] [address] [place] [address] * [facility] Aspartate Amino Transferase (04/18/2025 8:40 AM EDT) Only the most recent of2 resultswithin the time period is included. [facility] Aspartate Amino Transferase 30 13 - 39 U/L [facility] Plasma specimen or serum specimen or whole blood specimen 04/18/2025 8:40 AM EDT Naty Foley FOREIGN BANKNOTE TELLER-MENTAL HEALTH TECH LAB BLOOD ORDERABLES Anabella l Result Performing Organization Address City/[facility]/ZIP Co de Phone Number [facility] [address] [place] [address], [facility] [address] [place] [address] * [facility] Alanine Aminotransferase (04/18/2025 8:40 AM EDT) Only the most recent of2 resultswithin the time period is included. [facility] Alanine Aminotransferase 27 7 - 52 U/L [facility] Plasma specimen or serum specimen or whole blood specimen 04/18/2025 8:40 AM EDT us Naty Foley FOREIGN BANKNOTE TELLER-MENTAL HEALTH TECH LAB BLOOD ORDERABLES Anabella l Result [facility] [address] [place] [address], [facility] [address] [place] [id number] * Nuclear Stress Test - Onbase Scan (04/18/2025) Narrative 04/18/2025 Ordered by an unspecified provider. us Generic Provider Scanning CV STRESS PROCEDURES F inal Result * Stress Test - Onbase Scan (04/18/2025) Narrative 04/18/2025 Ordered by an unspecified provider. us Generic Provider Scanning CV STRESS PROCEDURES F inal Result * Echocardiogram (04/18/2025) Narrative 04/18/2025 Ordered by an unspecified provider. Generic Provider Scanning CV ECHO PROCEDURES Fin al Result * (ABNORMAL) [facility] Basic Metabolic Panel (03/26/2025 9:09 AM EDT) Pathologist [facility] Glucose 100 70 - 100 mg/dL [facility] Comment:Random Glucose Refer ence Range is dependent on time and content of last meal. Glucose of more than 200 mg/dL in a nonstressed, ambulatory subject supports the diagnosis of Diabetes Mellitus. ADA recommended reference range [facility] Blood Urea Nitrogen 24 7 - 25 mg/dL [facility] Creatinine 1.42(H) 0.70 - 1.30 mg/dL [facility] ESTIMATED GFR 51.852 mL/Min [facility] Sodium 139 136 - 145 mmol/L [facility] Potassium 4.7 3.5 - 5.1 mmol/L [facility] Chloride 105 98 - 107 mmol/L [facility] Carbon Dioxide 27.4 21.0 - 31.0 mmol/L [facility] Anion Gap 11.3 6.0 - 15.0 meq/L [facility] Calcium 9.0 8.6 - 10.3 mg/dL [facility] Plasma specimen or serum specimen or whole blood specimen 03/26/2025 9:09 AM EDT Naty Foley APRN-MENTAL HEALTH TECH LAB BLOOD ORDERABLES Anabella l Result [facility] [address] [place] [id number], [facility] [address] [place] [id number] * CARDIAC EVENT MONITOR CONTINUOUS UP TO 30 DAYS - HOOK-UP, PHYSICIAN READ (03/26/2025 8:11 AM EDT) Narrative [facility] - 04/12/2025 4:55 PM EDT Patient was monitored between 03/26/2025 and 04/09/2025 for 14 days for palpitations 11 tracings were sent for review. Patient was noted to have intermittent episode of atrial fibrillation with a heart rate as fast as 149 bpm. The atrial fibrillation episodes were not symptomatic. Patient reported 1 symptoms of shortness of breath and was associated with normal sinus rhythm heart rate 97 bpm. Background rhythm was sinus in most of the recordings Naty Foley APRN-MENTAL HEALTH TECH CV CARDIAC SERVICES PROCE EMI Final Result [facility] from Last 3 Months Insurance MEDICARE PART A AND B [facility] SENIOR SUPPLEMENT MEDICARE PART A AND B [facility] SENIOR SUPPLEMENT Care Teams Washing Tub Operator Relationship Specialty Start Date End Date Efe Morris MD [address] [facility] [place] [address] PCP - General Family Medicine 03/14/25
--- OUTSIDE RECORDS SUMMARY | 2025-05-14 14:23 | XMS_ITS | Encounter Summary ---
Author Organization [facility] Address [address] [place] [address] Phone Care Team Providers Care Ct Tech Name Role Phone Efe Morris MD Primary Care Provider [phone] Encounter Details Date Type Department Care Team (Latest Contact Info) Description 05/08/2025 Travel Social History Tobacco Use Types Packs/Day Years [...] Description 01/07/2026 8:40 AM EST Office Visit [address] [place] [address] Fidelina Albarado MD [address] [place] [address] documented as of this encounter Visit Diagnoses Not on filedocumented in this encounter Additional Health Concerns Assessment Noted Time A fall risk assessment has been complete d for the patient 05/02/2025 10:56 AM EDT documented as of this encounter Care Teams Ct Tech Relationship Specialty Start Date End Date Efe Morris MD [address] [place] [address] PCP - General Family Medicine 03/14/25 documented as of this encounter
--- OUTSIDE RECORDS SUMMARY | 2025-05-14 14:23 | XMS_ITS | Clinical Summary ---
Author Organization [facility] Address [address] [place] [address] Care Team Providers Care Electric Organ Assembler Name Role Phone Efe Morris MD Primary Care Provider [phone] Allergies Active Allergy Reactions Criticality Noted Date Comments Sulfa Antibiotics Other (See Comments) 10/25/20 17 Pt unsure reaction Medications predniSONE (DELTASONE) 20 MG tablet Take 20 mg by mouth daily Active ibuprofen (ADVIL;MOTRIN) 800 MG tablet Take 1 tablet by mouth every 8 hours as needed for Pain 30 tablet 10/25/2017 Active Social History Tobacco Use Types Packs/Day Years Used Date Smoking Tobacco: Never Smokeless Tobacco: Former Alcohol Use Standard Drinks/Week Comments Yes 0 (1 standard drink = 0.6 oz pur e alcohol) social Sex and Gender Information Value Date Recorded Sex Assigned at Not on file Legal Sex Male 7:34 PM EST Gender Identity Not on file Sexual Orientation Not on file Last Filed Vital Signs Vital Sign [place] Time Taken Comments Blood Pressure 142/89 10/25/2017 10:59 PM EST Pulse 86 10/25/2017 10:59 PM EST Temperature 36.7 C (98.1 F) 10/25/2017 7:43 PM EST Respiratory Rate 16 10/25/2017 10:59 PM EST Oxygen Saturation 95% 10/25/2017 10:59 PM EST Inhaled Oxygen Concentration - - Weight 106.6 kg (235 lb) 10/25/2017 7:43 PM EST Height 172.7 cm (5' 8 ) 10/25/2017 7:43 PM EST Body Mass Index 35.73 10/25/2017 7:43 PM EST Plan of Treatment Not on file Insurance MEDICARE [employer] [place] [id number] [employer]IC [employer] INSURANCE Care Teams Electric Organ Assembler Relationship Specialty Start Date End Date Efe Morris MD [address] [place] [address] PCP - General Family Medicine 10/25/17
--- OUTSIDE RECORDS SUMMARY | 2025-05-14 14:23 | XMS_ITS | Encounter Summary ---
Author Organization [facility] Address [address] [place] [address] Phone Care Team Providers Care Coal Conveyor Operator Name Role Phone Efe Morris MD Primary Care Provider [phone] Encounter Details Date Type Department Care Team (Latest Contact Info) Description 05/02/2025 Travel Social History Tobacco Use Types Packs/Day [...] Description 01/07/2026 8:40 AM EST Office Visit [address] [place] [address] Fidelina Albarado MD [address] [place] [address] documented as of this encounter Visit Diagnoses Not on filedocumented in this encounter Additional Health Concerns Assessment Noted Time A fall risk assessment has been complete d for the patient 05/02/2025 10:56 AM EDT documented as of this encounter Care Teams Coal Conveyor Operator Relationship Specialty Start Date End Date Efe Morris MD [address] [place] [address] PCP - General Family Medicine 03/14/25 documented as of this encounter
--- OUTSIDE RECORDS SUMMARY | 2025-05-14 14:24 | XMS_ITS | Clinical Summary ---
Author Organization [facility] Healthcare Address [address] [place] [address] Care Team Providers Care Manager Recruitment Name Role Phone Unavailable Primary Care Provider Unavailabl e Allergies Active Allergy Reactions Criticality Noted Date Comments Penicillins 04/12/2019 Other Reaction(s): Other (See Comments), Unknown As a child Sulfa Antibiotics Unknown 10/25/2017 Other Reaction(s): Other (See Comments), Unknown As a child Pt unsure reaction Reaction as a kid - unsure Medications tiZANidine (Zanaflex) 4 MG tablet 2 tablets Orally at bedtime for 15 4 Active tamsulosin (Flomax) 0.4 MG 24 hr capsule Take 0.4 mg by mouth Daily Active aspirin 325 MG tablet 1 (one) time each day at the same time Active Diclofenac 35 MG capsule 1 capsule with food or milk as needed Orally Twice per week Active doxazosin (Cardura) 4 MG tablet Take 4 mg by mouth at bedtime Active ferrous sulfate 325 (65 Fe) MG tablet Take 325 mg by mouth in the morning. Take with meals. Active gabapentin (Neurontin) 100 MG capsule 1 capsule 1 (one) time each day at the same time Active irbesartan (Avapro) 150 MG tablet Take 150 mg by mouth Daily 4 Active methocarbamol (Robaxin) 750 MG tablet Take 750 mg by mouth every 6 (six) hours if needed 4 Active pantoprazole (ProtoNix) 40 MG EC tablet TAKE 1 TABLET BY MOUTH EVERY DAY for 90 Active pravastatin (Pravachol) 40 MG tablet TAKE 1 TABLET BY MOUTH IN THE EVENING FOR CHOLESTEROL Active fluorouracil (Efudex) 5 % creamIndication s:Actinic keratosis Apply to directed areas on the cheeks, forehead, nose, tops of ears, and above upper lip twice a day x 14 days. Dispense 30 day supply but only use for 14 days. 40 g 4 Active Active Problems No known active problems Social History Tobacco Use Types Packs/Day Years Used Date Smoking Tobacco: Never Smokeless Tobacco: Never Tobacco Cessation:Counseling Given: Not Answered Sex and Gender Information Value Date Recorded Sex Assigned at Not on file Legal Sex Male 6:41 PM EDT Gender Identity Not on file Sexual Orientation Not on file Last Filed Vital Signs Vital Sign Reading Time Taken Comments Blood Pressure 144/99 04/04/2019 12:00 PM EDT Pulse - - Temperature - - Respiratory Rate - - Oxygen Saturation - - Inhaled Oxygen Concentration - - Weight 108 kg (238 lb) 04/22/2020 12:00 PM EDT Height 172.7 cm (5' 8 ) 06/07/2022 12:00 PM EDT Body Mass Index 36.19 04/22/2020 12:00 PM EDT Plan of Treatment Health Maintenance Due Date Last Done Comments CT Colonography 1950 Colonoscopy 1950 Colorectal Cancer Screening 1950 FIT-DNA 1950 FIT 1950 FOBT 1950 Sigmoidoscopy 1950 Pneumococcal Vaccine: 65+ Ye ars (2 of 2 - PCV) 08/21/2018 08/21/2017, 08/01/2017, 06/27/2017 Influenza Vaccine (Season Ended) 2025 08/31/2022, 09/03/2020, 09/04/2019, Additional history exists Insurance MEDICARE [employer]
== END 2025-05-14 14:19 | disposition home or self-care (01) ==
LOC: PST 14:19
PROVIDERS: PCP Family Medicine; Visit Provider Surgery
DX: Z01.818 Encounter for other preprocedural examination (principal); Z12.11 Encounter for screening for malignant neoplasm of colon

== ENCOUNTER 2025-05-22 06:58 | Day surgery (SDC) | payer MEDICARE, SELFPAY ==
--- OUTSIDE RECORDS SUMMARY | 2015-09-22 04:40 | XMS_ITS | Continuity of Care Document ---
Author Organization [facility] Address [address] [place] [address] Phone Care Team Providers Care Process Engineer Name Role Phone Adeline RILEY, Ernestina Unavailable [...] New Patient, Moderate [facility], [address] [place], [address], [place] tel:[phone] [facility] [place] hemorrhage OS (chief complaint)s hadown inferiorly (chief complaint)_ ____ (chief complaint) Retinal hemorrhage, left eyeBilateral age-related nuclear cataractsSecondary pigmentary degeneration, bilateralIschemic optic neuropathy, left eye 5 Adeline Do. [address], [address], [place], [place], [id number] , [place]. tel:[phone] Referring Provider: Miguel Sullivan, [address] [place], [address]. tel:[phone] Family History Family Member Type Diagnosis Age At Onset Mother Problem (finding) glaucoma Father Problem (finding) alzheimer's disease Mother Problem (finding) stroke Payers Payer name Insurance type Covered constitution party ID Ced arteaga(s) No Information Social [...] seen by Dr. Burr, a neuropthlamologist in [place] tomorrow for further evaluation. Patient was told [...]
--- OUTSIDE RECORDS SUMMARY | 2025-05-05 08:19 | XMS_ITS ---
Author Organization The [facility] in [place] Address [address] [place] [address] Care Team Providers Care Tree Chipper Name Role Phone Abhilash Morris Primary Care Provider [phone] REASON FOR VISIT Kidney Test Results Encounters Encounter Location Date Provider Diagnosis [facility] [address] [place] [phone] 05/05/2025 Abhilash Elanzack Plan Of Treatment Next Appt Details Provider Name:Abhilash Morris, 09:00:00 AM, [address] [place], [address], Progress Notes * López CORTÉS PDOB:[birth year] (75 yo M)Acc No.[id number]:05/05/2025 Patient: Ruby López REHMAN :1950 A ge:75 Y S ex:Male Address:[address] [place] [address], [address] * true * Date: Generated for Christinei hossein/Fajayyg/eTransmitting on: 05/22/2025 07:00 AM EDT
--- OUTSIDE RECORDS SUMMARY | 2025-05-08 07:30 | XMS_ITS ---
Author Organization The [facility] in [place] Address [address] [place] [address] Care Team Providers Care Licensed Sales Assistant Name Role Phone Abhilash Morris Primary Care Provider REASON FOR VISIT BP CHECK Vital Signs Weight 222.6 lbs 05/08/2025 Height 68 in 05/08/2025 Blood pressure systolic 98 mm Hg 05/08/20 25 Blood pressure diastolic 64 mm Hg 025 BMI 33.84 kg/m2 05/08/2025 Encounters Encounter Location Date Provider Diagnosis [facility] [address] [place] [address] 05/08/2025 Abhilash Morris Hypertension I10 Assessments Encounter Date Diagnosis (ICD Code) Assessment Notes Treatment Notes Treatment Clinical Notes Section Notes 05/08/2025 Hypertension (ICD-10 - I10) Plan Of Treatment Next Appt Details Provider Name:Abhilash Shelley Morris, 09:00:00 AM, [address] [place], [address], Progress Notes * López CORTÉS PDOB:[birth year] (75 yo M)Acc No.[id number]:05/08/2025 UNLOCKED PROGRESS NOTE BP Check Patient: Ruby López REHMAN Provider: Lashae Morris ([facility])MD :1950 A ge:75 Y S ex:Male Date:05/08/2025 Address:[address] [place] [address] [address] [id number] Check In:11:23 AM ESTCheck O ut:11:35 AM EST Subjective: * Chief Complaints: * 1 . BP CHECK. * Medical History: Objective: * Vitals: W t:222.6lbs, Ht: 68 in, BP:98/64mm Hg, BMI:33.84Index, Ht-cm: 172.72 cm, Wt-k.97 kg. Assessment: * Assessment: 1. H ypertension - I10 (Primary) Plan: * Treatment: * * Electronic signature of Abhilash Morris MD, [id number] on 05/22/2025 at 07:00 AM EDT Sign off status: Pending Visit Status: Lyle MANRIQUE (Check Out) * Provider: Lashae Morris ([facility])MD Date: 0 05/08/2025 Generated for Christinei hossein/Adriana/eTransmitting on: 0 05/22/2025 07:00 AM EDT
--- OUTSIDE RECORDS SUMMARY | 2025-05-08 07:36 | XMS_ITS ---
Author Organization The [facility] in [place] Address [address] [place] [address] Care Team Providers Care Tele Tech Name Role Phone Abhilash Morris Primary Care Provider REASON FOR VISIT BP check Encounters Encounter Location Date Provider Diagnosis [facility] [address] [place] [address] 05/08/2025 Abhilash Morris Hypertension I10 Assessments Encounter Date Diagnosis (ICD Code) Assessment Notes Treatment Notes Treatment Clinical Notes Section Notes 05/08/2025 Hypertension (ICD-10 - I10) Plan Of Treatment Medication Medication Name Sig Start Date Stop Date Notes Irbesartan 150 MG 1 tablet Orally Once a day dose changed per pt Next Appt Details Provider Name:Abhilash Morris, 09:00:00 AM, [address] [place], [address], Progress Notes * López BORJAS PDOB:[birth year] (75 yo M)Acc No.[id number]:05/08/2025 Patient: Ruby SCOTTERICALópez :1950 A ge:75 Y S ex:Male Address:[address] [place] [address], [phone] * Refills Stop Irbesartan Tablet, 150 MG, Orally, 1 tablet, Once a day * true * Date: Generated for Printi ng/Faxing/eTransmitting on: 0 05/22/2025 07:00 AM EDT
--- OUTSIDE RECORDS SUMMARY | 2025-05-09 10:00 | XMS_ITS | Encounter Summary ---
Author Organization [facility] Address [address] [facility] [place] [address] Phone Care Team Providers Care Land Commissioner Name Role Phone Efe Morris MD Primary Care Provider [phone] Reason for Visit * Reason Comments ekg visit * Cardiovascular (Routine) - Authorized Specialty Diagnoses / Procedures Referred By Contac t Referred To Contact Diagnoses Paroxysmal atrial fibrillation (Multi) Procedures ECG 12 Lead Fidelina Albarado MD [address] [facility], [facility] [address] [place] [address] Phone: tel: fax: Referral ID Status Reason Start Date Expiration Date V isits Requested Visits Authorized [id number] Authorized 05/02/2025 05/02/2026 1 1 Encounter Details Date Type Department Care Team (Latest Contact Info) Description 05/09/2025 10:00 AM EDT Ancillary Procedure [address] [place] [address] Paroxysmal atrial fibrillation (Multi) Social History Tobacco Use Types Packs/Day Years [...] Sign Reading Time Taken Comments Blood Pressure 124/82 05/09/2025 9:59 AM EDT Pulse 57 05/09/2025 9:59 AM EDT Temperature - - Respiratory Rate - - Oxygen Saturation - - Inhaled Oxygen Concentration - - Weight 101 kg (222 lb) 05/09/2025 9:59 AM EDT Height 172.7 cm (5' 8 ) 05/09/2025 9:59 AM EDT Body Mass Index 33.75 05/09/2025 9:59 AM EDT documented in this encounter Progress Notes * Rafaela Tabares LPN - 05/09/2025 10:00 AM EDT Patient here for EKG visit ordered by Dr. Albardao due to afib. Dr. Albarado in suite to review EKG prior to discharge. Patient here due to starting Flecainide 50mg twice daily 05/02/2025. Medication list Updated verbally. Denies cardiac complaints. To Dr. Albarado to read. Vitals: 05/09/25 0959 BP: 124/82 BP Location: Right arm Patient Position: Sitting Pulse: 57 Weight: 101 kg (222 lb) Height: 1.727 m (5' 8 ) documented in this encounter Plan of Treatment Upcoming Encounters Date Type Department Care Team (Late st Contact Info) Description 01/07/2026 8:40 AM EST Office Visit [facility] [address] [place] [address] Fidelina Albarado MD [address] [facility], [address] [place] [address] documented as of this encounter Procedures Procedure Name Priority Date/Time Associated Diagnosis Comments ECG 12-LEAD Routine 05/09/2025 9:33 AM EDT Paroxysmal atrial fibrillation (Multi) documented in this encounter Results * ECG 12 Lead (05/09/2025 9:33 AM EDT) Narrative [facility] - 05/09/2025 2:17 PM EDT Sinus bradycardia, T wave inversion inferiorly, low voltage QRS complex, abnormal ECG us Fidelina Albarado MD ECG ORDERABLES Final Result [facility] documented in this encounter Visit Diagnoses Diagnosis Paroxysmal atrial fibrillation (Multi) Atrial fibrillation documented in this encounter Additional Health Concerns Assessment Noted Time A fall risk assessment has been complete d for the patient 05/02/2025 10:56 AM EDT documented as of this encounter Care Teams Land Commissioner Relationship Specialty Start Date End Date Efe Morris MD [address] [place] [address] PCP - General Family Medicine 03/14/25 documented as of this encounter
--- NOTE | 2025-05-22 | OP_ITS ---
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 PROCEDURE: EGD with biopsy of distal esophagus/Terrazas?s esophagus, colonoscopy to cecum with cold snare polypectomy x1 for a 4 mm ascending colon polyp, and excisional biopsy ruptured epidermal cyst left upper back. SURGEON: Obey Mahmood M.D. ANESTHESIA: Monitored anesthesia care, as well as local with 0.5% Marcaine plain. ESTIMATED BLOOD LOSS: Less than 7 mL. INDICATIONS AND CONSENT: Patient is a 75-year-old male, recently found to have a positive fecal occult blood test. 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 He also has an enlarging cyst in the left upper back, consistent with an epidermal cyst. Indications, risks, benefits, alternatives of proceeding with EGD, possible biopsy, colonoscopy to cecum, as well as excisional biopsy of epidermal cyst were explained extensively to the patient, including the risks of bleeding, infection, scarring, pain, recurrence, aspiration, esophageal/gastric/duodenal or colonic perforation or anesthetic complications. All of his questions were answered. Informed consent was obtained. PROCEDURE: Patient brought to the operating room, placed in the left lateral decubitus position. Monitored anesthesia care was provided. Bite block was placed in the patient?s mouth. Scope was inserted into the oropharynx. Under direct visualization, it was advanced into the esophagus, past the cricopharyngeus, down to the stomach. The stomach was insufflated with air. The pylorus was traversed down to the descending portion of the duodenum. There was no evidence of duodenitis or ulceration. There was no scarring within the pyloric channel. Scope was pulled back into the stomach and retroflexed. There was noted to be an approximately 4 cm sliding type hiatal hernia. The GE junction was noted at approximately 37 cm. 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 Several biopsies of the distal esophageal Terrazas?s areas were obtained with pediatric cold biopsy forceps. There was good hemostasis. The scope was then withdrawn. The remainder of the esophagus was unremarkable. Patient was then positioned for colonoscopy. Rectal exam was performed, which showed no masses or blood. The scope was then inserted into the anal canal. Under direct visualization, it was advanced. It was advanced to the cecum where cecal markings were clearly identified. There was noted to be a good prep. Upon withdrawal of the scope, mucosal surfaces were carefully examined. Within the ascending colon, there was noted to be a 4 mm sessile polyp that was removed with cold snare with good hemostasis. There were no other mass lesions or polyps. No inflammatory changes or ulcerations. There were rare sigmoid diverticula, without inflammatory changes or scarring. The scope was retroflexed in the anal canal. There was no significant hemorrhoidal disease. The scope was then withdrawn. The patient was then positioned in the right lateral decubitus position. The left upper back epidermal cyst was prepped and draped in the usual sterile fashion. It was anesthetized with 0.5% Marcaine plain. It was excised in elliptical fashion, down to subcutaneous fat, using the scalpel, as well as needle tip electrocautery. Total length of the incision was 3 cm. It was consistent with a ruptured epidermal cyst. Base was debrided. There was some granulation tissue which was controlled with needle tip electrocautery. There was good hemostasis. The incision was then closed with 3-0 nylon mattress sutures, as well as 4-0 nylon simple sutures. Sterile pressure dressing was applied. Sponge and needle counts were correct x3 per nursing personnel. Patient tolerated procedure well, was sent to recovery room in good condition. Surveillance colonoscopy likely in 5 years if patient remains in good health, but may change based on pathology results. CC: Mile Bustamante
--- OUTSIDE RECORDS SUMMARY | 2025-05-22 07:00 | XMS_ITS | Encounter Summary ---
Author Organization [facility] Address [address] [place] [address] Care Team Providers Care Digester Operator Helper Name Role Phone Efe Morris MD Primary Care Provider [phone] Source Comments In the event this information is protected by the Federal Confidentiality of Alcohol and Drug AbusePatient Records regulations: The Federal rules restrict any use of the information to criminally investigate or prosecute any alcohol or drug abuse patient.[facility] Encounter Details Date Type Department Care Team (Late st Contact Info) Description 02/24/2019 Patient Msg Pulmonary Medicine [address] [address] Kristian Ivory [address] [place] [address] scan Social History Tobacco [...] on filedocumented in this encounter Care Teams Digester Operator Helper Relationship Specialty Start Date End Date Efe Morris MD PCP - General Family Medicine 11/07/17 documented as of this encounter
--- OUTSIDE RECORDS SUMMARY | 2025-05-22 07:00 | XMS_ITS | Encounter Summary ---
Author Organization [facility] Address [address] [place] [address] Phone Care Team Providers Care Pharmacy Consultant Name Role Phone Efe Morris MD Primary Care Provider [phone] Encounter Details Date Type Department Care Team (Late Contact Info) Description 04/18/2025 Scanned Document [facility] [address] [place] [id number] Scanning, Generic Provider Social History Tobacco Use [...] Description 01/07/2026 8:40 AM EST Office Visit [place] [address] [place] [id number] Fidelina Albarado MD [address] [facility] [address] [place] [address] documented as of this encounter [...] documented as of this encounter Care Teams Pharmacy Consultant Relationship Specialty Start Date End Date Efe Morris MD [address] [facility] [place] [address] PCP - General Family Medicine 03/14/25 documented as of this encounter
--- OUTSIDE RECORDS SUMMARY | 2025-05-22 07:00 | XMS_ITS | Patient Health Record ---
Author Organization [facility] [place] Address [address] [place] [address] Care Team Providers Care Invasive Manager Name Role Phone Abhilash Morris Primary Care Provider Allergies Allergen (clinical drug ingredient) Drug/Non Drug Allergy documented on EMR Reaction Allergy Type Onset Date Status Sulfa Unknown Drug Allergy Active Results Component Value Reference Range Notes TSH Reviewed date:04/17/2025 06:13:03 PM Interpretation: Performing Lab: Notes/Report: [facility] , Thyroid Stimulating Hormone 0.805 0.358-3.740 u IU/mL Performing Lab: see note ML - [facility] LB T4 Reviewed date:04/17/2025 06:13:03 PM Interpretation: Performing Lab: Notes/Report: [facility] , T4 Thyroxine 5.90 4.50-12.10 ug/dL Performing Lab: see note ML - [facility] LB PROF 14(COMP METB) Reviewed date:04/17/2025 06:13:03 PM Interpretation: Performing Lab: Notes/Report: [facility] , Sodium 142 136-145 mmol/L Potassium 4.7 [...] 1.0 Performing Lab: see note ML - [facility] LB LIPID PROFILE Reviewed date:04/17/2025 06:13:03 PM Interpretation: Performing Lab: Notes/Report: [facility] , Triglycerides 74 <=150 mg/dL Cholesterol 113 <=200 mg/dL HDL Cholesterol 44 40-60 mg/dL > or =60 mg/dl - LOW CARDIOVASCULAR RISK <40 mg/dl - HIGH CARDIOVASCULAR RISK LDL Cholesterol Calculated 54.2 <100 mg/dl OPTIMAL 100-129 mg/dl NEAR OR ABOVE OPTIMAL 130-159 mg/dl BORDERLINE HIGH 160-189 mg/dl HIGH >190 mg/dl VERY HIGH VLDL CHOLESTEROL 14.8 Chol HDL Ratio 2.6 3.3 - 4.4 LOW RISK 4.4 - 7.1 AVERAGE RISK 7.1 - 11.0 MODERATE RISK >11.0 HIGH RISK Performing Lab: see note - [facility] FREE T3 Reviewed date:04/17/2025 06:13:03 PM Interpretation: Performing Lab: Notes/Report: [facility] , Free T3 2.52 2.18-3.98 pg/mL Performing Lab: see note ML - [facility] LB CBC AUTO DIFF Reviewed date:04/17/2025 06:13:03 PM Interpretation: Performing Lab: Notes/Report: [facility] , White Blood Count 6.6 4.0-11.0 10 [...] 3/uL Performing Lab: see note ML - [facility] LB GLYCOHEMOGLOBIN A1C Reviewed date:04/17/2025 06:13:03 PM Interpretation: Performing Lab: Notes/Report: [facility] , Glycohemoglobin A1C 5.7 4.5-6.2 % ADA RECOMMENDED LIMIT 4.0 - 6.0 ADA THERAPEUTIC TARGET < 7.0 ACTION SUGGESTED > 7.0 Estimated Average Glucose 117 Performing Lab: see note ML - [facility] LB PROF CHEM 8 (BAS METB) Reviewed date:05/05/2025 12:19:42 PM Interpretation: Performing Lab: Notes/Report: [facility] , Sodium 141 136-145 mmol/L Potassium 4.5 [...] mg/dL Performing Lab: see note ML - [facility] LB Occult Blood* Reviewed date:04/18/2025 05:43:17 PM Interpretation: Performing Lab: Notes/Report: [facility] , Occult Blood Positive Performing Lab: see note ML - [facility] LB Reason For Referral Diagnosis 1 Cervical radiculopat hy (M54.12) Referral Organization [facility] Referring Provider First Name Abhilash Referring Provider Last Name Arturo [facility] Pain Management, TB Referred Provider Specialty Pain Medicin e Referral Priority Routine Diagnosis 1 Positive occult stoo l blood test (R19.5) Referral Organization [facility] Referring Provider First Name Abhilash Referring Provider Last Name Arturo Referring Provider [facility] monique Referred Provider Obey Mahmood Referred Provider Specialty General Surg michelle Referral Priority Routine Reason seeing him alread Diagnosis 1 Sebaceous cyst (L72. 3) Referral Organization [facility] Referring Provider First Name Abhilash Referring Provider Last Name Arturo Referring Provider [facility] monique Referred Provider Obey Mahmood Referred Provider [...] Administration Date Status Comme nts Flu, Fluad (75075) 65 yrs + High Dose Seasonal (8065-5559) IM Intramuscular 09/15/2023 Administered Flu, Fluad (45856) 65 yrs and older, single-dose syringe IM Intramuscular 09/26/2024 Administered Tdap Unknown 09/23/2024 Administered Social History AUDIT-C (Standard) Question Answer Notes Did you have a drink containing alcohol in the p ast year? No Points 0 Interpretation Negative Problems Problem Type SNOMED Code ICD Code Onset Dates Problem Status W/U Status Risk Notes Problem Sebaceous cyst (874965858) Sebaceous cyst (L72.3) Active confirmed Problem Impingement syndrome of left shoulder region (403598541388189) Impingement syndrome of left shoulder (M75.42) Active confirmed Problem Atrial fibrillation (25709178) Atrial fibrillation (I48.91) Active confirmed Problem Hypertension (73261722) Hypertension (I10) Active confirmed Problem Gastroesophageal reflux disease (433047528) GERD (gastroesophageal reflux disease) (K21.9) Active confirmed Problem Cervical radiculopat hy (01881255) Cervical radiculopathy (M54.12) Active confirmed Problem Peripheral neuropath y (669112735) Peripheral neuropathy (G62.9) Active confirmed Problem Chronic kidney disea se stage 2 (052613789) Chronic kidney disease, stage II (mild) (N18.2) Active confirmed Problem Insomnia (911377993) Insomnia (G47.00) Active c onfirmed Problem Osteoarthritis of kn ee (501926410) Knee osteoarthritis (M17.9) Active confirmed Problem Benign prostatic hyperplasia (808669053) BPH (benign prostatic hyperplasia) (N40.0) Active confirmed Problem Glaucoma (08623332) Glaucoma (H40.9) Active con firmed Problem Terrazas esophagus (180935373) Terrazas esophagus (K22.70) Active confirmed Problem Arthralgia (46273847) Arthralgia (M25.50) Active confirmed Problem Angioneurotic edema (40276435) Angioneurotic edema (T78.3XXA) Active confirmed Problem Basal cell carcinoma (4582685) Basal cell carcinoma (C44.91) Active confirmed Problem Acute bronchiolitis (0716775) Acute bronchiolitis (J21.9) Active confirmed Problem hypercholesterolemia (disorder) (51192925) Hypercholesteremia (E78.00) Active confirmed Problem Torticollis (63291390) Spastic t orticollis (M43.6) Active confirmed Problem Disorder of sacrum (14823939) Low back derangement syndrome (M53.86) Active confirmed Problem 553047910 Abnormal finding s on diagnostic imaging of other specified body structures (R93.89) Active confirmed Problem Osteoarthritis of kn ee (242774955) DJD (degenerative joint disease) of knee (M17.10) Active confirmed Vital Signs Temperature 98.2 degrees Fahrenheit 10/04/2024 Blood pressure diastolic 64 mm Hg 05/08/2025 Height 68 in 05/08/2025 Blood pressure systolic 98 mm Hg 05/08/2025 Weight 222.6 lbs 05/08/2025 BMI 33.84 kg/m2 05/08/2025 Encounters Encounter Location Date Provider Diagnosis [address] [place] [address] [address] 04/16/2025 Abhilash Morris Chronic kidney disea se, stage II (mild) N18.2 ; Hypertension I10 ; Hypercholesteremia E78.00 and Polyneuropathy, unspecified G62.[address] [place] [address] [address] 04/17/2025 Abhilash Hoy Spastic torticollis M43.6 and Elevated BUN R79.[address] [place] [address] [address] 04/18/2025 Abhilash Hoy [address] [place] [address] [address] 04/18/2025 Abhilash Ansariy Positive occult stoo l blood test R19.[address] [place] [address] [address] 05/05/2025 Abhilash Hoy [address] [place] [address] [address] 05/08/2025 Abhilash Morris Hypertension I10 [address] [facility] [place] [place] [address] 06/28/2024 Abhilash Hoy Acute bronchiolitis J21.9 [facility] [address] [facility] [place] [address] 10/08/2024 Abhilash Hoy Acute non-recurrent sinusitis, unspecified location J01.90 [facility] [address] [facility] [place] [place] [address] 2025 Abhilash Hoy Cervical radiculopat hy M54.12 [facility] [address] [place] [address] 02/12/2025 Abhilash Hoy Hypertension I10 [facility] [address] [facility] [place] [address] 03/20/2025 Abhilash Hoy Cervical radiculopat hy M54.12 [facility] [address] [facility] [place] [address] 09/26/2024 Abhilash Hoy Encounter for immuni zation Z23 [facility] [address] [facility] [place] [address] 05/03/2025 Abhilash Hoy Sebaceous cyst L72.3 ; Hypertension I10 and Atrial fibrillation I48.91 [facility] [address] [facility] [place] [place] [address] 05/08/2025 Abhilash Hoy Hypertension I10 [facility] [address] [facility] [place] [address] 10/04/2024 Abhilash Hoy Acute non-recurrent sinusitis, unspecified location J01.90 and Nasal congestion R09.81 [facility] [address] [facility] [place] [address] 12/31/2024 Abhilash Hoy Spastic torticollis M43.6 ; Cervical radiculopathy M54.12 and Hypertension I10 [facility] [address] [facility] [place] [address] 02/12/2025 Abhilash Hoy Hypertension I10 ; G ERD (gastroesophageal reflux disease) K21.9 ; Peripheral neuropathy G62.9 and Chronic kidney disease, stage II (mild) N18.2 Assessments Encounter Date Diagnosis (ICD Code) Assessment Notes Treatment Notes Treatment Clinical Notes Section Notes 09/26/2024 Encounter for immunization (ICD-10 - Z23) 10/04/2024 Acute non-recurrent sinusitis, unspecified location (ICD-10 - J01.90) Rest and drink more liquids, especially water. You may use a humidifier or vaporizer to help keep the drainage moist. Jnuv-gto-sznuqmj Nasal Saline may help the stuffy and runny nose. Use Ibuprofen and or Tylenol as needed for fever, chills, body aches or pain. Children 5 years old should not be given hcpb-qqp-vixmput cough and cold medications such as guaifenesin and dextromethorphan. If you're over age 5, you may try ibdm-xgs-cjqtueb cold medications such as guaifenesin and dextromethorphan, [...] symptoms do not improve within 3-5 days 02/12/2025 Hypertension (ICD-10 - I10) 02/12/2025 GERD (gastroesophageal reflux disease) (ICD-10 - K21.9) stabel on embed 05/08/2025 Hypertension (ICD-10 - I10) 06/28/2024 Acute bronchiolitis (ICD-10 - J21.9) 10/08/2024 Acute non-recurrent sinusitis, unspecified location (ICD-10 - J01.90) 2025 Cervical radiculopathy (ICD-10 - M54.12) 02/12/2025 Hypertension (ICD-10 - I10) 03/20/2025 Cervical radiculopathy (ICD-10 - M54.12) 04/16/2025 Chronic kidney disease, stage II (mild) (ICD-10 - N18.2) 04/16/2025 Hypertension (ICD-10 - I10) 12/31/2024 Spastic torticollis (ICD-10 - M43.6) 12/31/2024 Cervical radiculopathy (ICD-10 - M54.12) 05/03/2025 Sebaceous cyst (ICD-10 - L72.3) 04/17/2025 Spastic torticollis (ICD-10 - M43.6) 04/18/2025 Positive occult stoo l blood test (ICD-10 - R19.5) 05/08/2025 Hypertension (ICD-10 - I10) 04/17/2025 Elevated BUN (ICD-10 - R79.9) 05/03/2025 Hypertension (ICD-10 - I10) 05/03/2025 Atrial fibrillation (ICD-10 - I48.91) 12/31/2024 Hypertension (ICD-10 - I10) 04/16/2025 Hypercholesteremia (ICD-10 - E78.00) 02/12/2025 Peripheral neuropath y (ICD-10 - G62.9) stable 10/04/2024 Nasal congestion (ICD-10 - R09.81) 02/12/2025 [...] WITH GFR 04/16/2025 OCCULT BLOOD, FECAL, IMMUNOASSAY 024 OCCULT BLOOD, FECAL, IMMUNOASSAY 025 Basic Metabolic Panel (8) 04/17/2025 CBC W/AUTO DIFF 04/16/2025 CBC W/AUTO DIFF 04/09/2024 THYROID PANEL (T4/TSH/FREE T3) THYROID PANEL (T4/TSH/FREE T3) PSA, SCREENING 04/09/2024 Lipid Panel 04/16/2025 Lipid Panel 04/09/2024 Next Appt Details Provider Name:Abhilash Morris, 09:00:00 AM, [address] [place], [address], Insurance Providers Payer Name Payer Address Payer Phone Subscriber Number Group Number Insured Name Patient Relationship to Insured Coverage Start Date Coverage End Date MEDICARE [place] [address] [place] [phone] [id number] López Borjas Self - patient is the insured [facility] [employer] [address] [address] [place] [address] [id number] López Borjas Self - patient is the [...] Fractured sternum 807.2 Surgical History Surgery Date(Month/Year) skin cancer removal from left ear BILATERAL BASAL JOINT INJECTONS REVISION LEFT TOTAL ARTHROPL ASTY, PERIARTICULAR INJECTION, PLACEMENT OF CONTINUOUS CATHETER 10/29/2020 RIGHT KNEE PARTIAL MENISCESTOMY 03/2019 HEMORRHOID SURGERY TRIGGER FINGER ROTAR CUFF REPAIR- RIGHT cholecystectomy Colonoscopy Dr Giron 2015 Hospitalization History Reason Date(Month/Year) See above
--- OUTSIDE RECORDS SUMMARY | 2025-05-22 07:00 | XMS_ITS | Encounter Summary ---
Author Organization [facility] Address [address] [place] [address] Phone Care Team Providers Care Junior High School Teacher Name Role Phone Efe Morris MD Primary Care Provider [phone] Encounter Details Date Type Department Care Team [...] Description 01/07/2026 8:40 AM EST Office Visit [address] [place] [address] Fidelina Albarado MD [address] [place] [address] documented as of this encounter Visit Diagnoses Not on filedocumented in this encounter Additional Health Concerns Assessment Noted Time A fall risk assessment has been complete d for the patient 05/02/2025 10:56 AM EDT documented as of this encounter Care Teams Junior High School Teacher Relationship Specialty Start Date End Date Efe Morris MD [address] [place] [address] PCP - General Family Medicine 03/14/25 documented as of this encounter
--- OUTSIDE RECORDS SUMMARY | 2025-05-22 07:00 | XMS_ITS | Encounter Summary ---
Author Organization [facility] Address [address] [place] [address] Care Team Providers Care [place] Roaster Name Role Phone Efe Morris MD Primary Care Provider [phone] Source Comments In the event this information is protected by the Federal Confidentiality of Alcohol and Drug AbusePatient Records regulations: The Federal rules restrict any use of the information to criminally investigate or prosecute any alcohol or drug abuse patient.[facility] Encounter Details Date Type Department Care Team (Late st Contact Info) Description 02/14/2018 [facility] [address] [place] [address] Main Perez MD [address] [place] [address] Social History Tobacco Use Types Packs/Day Years [...] on filedocumented in this encounter Care Teams [place] Roaster Relationship Specialty Start Date End Date Efe Morris MD PCP - General Family Medicine 11/07/17 documented as of this encounter
--- OUTSIDE RECORDS SUMMARY | 2025-05-22 07:00 | XMS_ITS | Clinical Summary ---
Author Organization [employer] tem Address [id number] [address] [place] [address] Care Team Providers Care Roving Tester Laboratory Name Role Phone Efe Morris MD Primary Care Provider [phone] Allergies Active Allergy Reactions Criticality Noted Date [...] mouth nightly as needed for sleep. Active wxozhtdh-xsim-P A-calcium &mins (THERAGRAN-M) 9 mg iron-400 mcg [...] home PT. Medical Devices Implanted Type Area Fur Stylist Device Identifier Shelf Expiration Date Model / Serial / Lot Cmnt Bn Bio 40gm Rpl [id number] +[id number] - Sna - [id number] Implanted:Qty : 2 on 05/07/2020 by Bruno Ortega DO at [facility] Cement Left: Knee [employer] 02/19/2024 [id number] / NA / [id number] Cmpt Fem 9 Std Kn Lt Cr Cmnt - Sna - [id number] Implanted:Qty : 1 on 05/07/2020 by Bruno Ortega DO at [facility] Orthopedic Implant Left: Knee [employer] 09/20/2029 41-8800-804- 01 / NA / [id number] Cmpt Ptlr 32mm Nxgn Alply Rpl [id number] + [id number] + [id number] - Sna - [id number] Implanted:Qty : 1 on 05/07/2020 by Bruno Ortega DO at [facility] Orthopedic Implant Left: Knee [employer] 10/20/2027 91-3296-163- 32 / NA / [id number] Psn Mc Ve Asf L 12mm 8-11/Ef - Sna - [id number] Implanted:Qty : 1 on 05/07/2020 by Bruno Ortega DO at [facility] Orthopedic Implant Left: Knee [employer] 06/20/2024 49-3986-124- 12 / NA / [id number] Bsplt Tib 5d E Kn Lt Cmnt Stm - Sna - [id number] Implanted:Qty : 1 on 05/07/2020 by Bruno Ortega DO at [facility] Plate Left: Knee [employer] 09/20/2027 66-6657-437- 01 / NA / [id number] Explanted Type Area Fur Stylist Device Identifier Shelf Expiration Date Model / Serial / Lot Scr Bn Arsen 35mm 6.5mm Hip St Rpl [id number] + [id number] + 32 - Sna - [id number] Explanted:Qty: 1 on 05/07/2020 at [facility] Screw Left: Knee [employer] 10/20/2029-6250-06 5-35 / NA / [id number] Scr Bn Arsen 35mm 6.5mm Hip St Rpl [id number] + [id number] + 32 - Sna - [id number] Explanted:Qty: 1 on 05/07/2020 by Bruno Ortega DO at [facility] Screw Left: Knee [employer] 10/18/20296250- 5-35 / NA / [id number] Scr Gd 48mm Qd-Spr Hex Hd Mis - Sna - [id number] Explanted:Qty: 1 on 05/07/2020 at [facility] Screw Left: Knee [employer] 01/18/20305983- 0-48 / NA / [id number] Scr Gd 48mm Qd-Spr Hex Hd Mis - Sna - [id number] Explanted:Qty: 1 on 05/07/2020 by Bruno Ortega DO at [facility] Screw Left: Knee [employer] 09/20/20295983- 0-48 / NA / [id number] Insurance MEDICARE [employer]ICAL [employer] Advance Directives * Full Code (Latest Code Status on File) Date Activated Date Inactivated Comments 05/07/2020 2:06 PM 05/08/2020 3:38 PM Care Teams Roving Tester Laboratory Relationship Specialty Start Date End Date Efe Morris MD PCP - General Family Medicine 04/12/19
--- OUTSIDE RECORDS SUMMARY | 2025-05-22 07:00 | XMS_ITS | Referral Summary ---
Author Organization [facility] Address [address] [place] [address] Care Team Providers Care Carton Stenciler Name Role Phone Unavailable Primary Care Provider [...]
--- OUTSIDE RECORDS SUMMARY | 2025-05-22 07:00 | XMS_ITS | Clinical Summary ---
Author Organization [facility] Address [address] [place] [address] Care Team Providers Care Sales Merchandiser Name Role Phone Unavailable Primary Care Provider [...]
--- OUTSIDE RECORDS SUMMARY | 2025-05-22 07:01 | XMS_ITS | Clinical Summary ---
Author Organization [facility] Address [address] [place] [address] Phone Care Team Providers Care Senior Data Warehouse Developer Name Role Phone Efe Morris MD Primary Care Provider [phone] Allergies Active Allergy Reactions Criticality Noted Date [...] Type Department Care Team Description 05/13/2025 Telephone [facility] [address] [place] [address] [address] [place] [address] Julissa Alonso LPN med hold 05/09/2025 10:00 AM EDT Ancillary Procedure [address] [place] [address] Paroxysmal atrial fibrillation (Multi) 05/08/2025 Travel 05/02/2025 11:30 AM EDT Office Visit [address] [place] [address] Fidelina Albarado MD Paroxysmal atrial fibrillation (Multi); High risk medication use; Encounter to discuss test results; Essential hypertension; Mixed hyperlipidemia; BMI 34.0-34.9,adult; Former smoker 05/02/2025 Travel 04/28/2025 Travel 04/19/2025 Telephone [facility] [address] [address] Rafaela Tabares LPN Results 04/19/2025 Orders Only [facility] [address] [place] [address] Naty Foley, WOOD CARVING LATHE OPERATOR-PRESSING DEPARTMENT SUPERVISOR 04/18/2025 Scanned Document [facility] [address] [place] [address] Scanning, Generic Provider 04/18/2025 Orders Only [facility] [address] [place] [address] Naty Foley, WOOD CARVING LATHE OPERATOR-PRESSING DEPARTMENT SUPERVISOR 04/16/[address] [place] [address] Rafaela Tabares, ASSOCIATE PROFESSOR OF MUSICOLOGY Paroxysmal A-fib (Multi) 03/28/2025 Refill [facility] [address] [place] [address] [address] [place] [address] TabaresRaulna, ASSOCIATE PROFESSOR OF MUSICOLOGY Paroxysmal atrial fibrillation (Multi) (Primary Dx) 03/26/2025 8:00 AM EDT Ancillary Procedure [address] [place] [address] Palpitations 03/26/[address] [facility] [address] [facility] [address] [place] [address] Teresa Polanco MA 03/26/2025 Orders Only [facility] [address] [place] [address] Naty Foley APRN-CARINE 03/26/2025 Travel 03/18/2025 9:30 AM EDT Office Visit [address] [place] [address] Naty Foley WOOD CARVING LATHE OPERATOR-PRESSING DEPARTMENT SUPERVISOR Dyspnea on exertion (Primary Dx); Palpitations; Abnormal EKG; Other fatigue; BMI 35.0-35.9,adult; Mixed hyperlipidemia; Essential hypertension 03/18/2025 Telephone [facility] [address] [facility] [address] [place] [address] Naty Foley APRN-PRESSING DEPARTMENT SUPERVISOR 03/18/2025 Travel from Last 3 Months Immunizations [...] Description 01/07/2026 8:40 AM EST Office Visit [address] [place] [address] Fidelina Albarado MD [address] [facility] [address] [place] [address] Health Maintenance Due Date Last [...] age to complete this topic HPV Vaccines (No Doses Required) Completed Hepatitis A Vaccines Aged Out No long [...] Fidelina Albarado MD ECG ORDERABLES Final Result [facility] * NM myocardial perfusion planar S and R w EF and WM (04/19/2025 1:22 PM EDT) Anatomical Region Laterality Modality Head neck Nuclear Medicine 04/19/2025 1:22 PM EDT Narrative 04/19/2025 1:25 PM EDT [facility] Main [address] [address] Nuclear Medicine Report Signed Patient: López Borjas MR#: [id number] : 1950 Acct:[id number] Age/Sex: 75 / M ADM Date: 04/18/25 Loc: Room: Type: [facility] Attending Dr: Naty Foley WOOD CARVING LATHE OPERATOR Copies to: GLORIA Domínguez MD Ordering Provider: Naty Foley APRN Date of Service: 04/18/25 NM/NM katya perf SPECT rest str: SOB NUCLEAR MYOCARDIAL PERFUSION DATE OF PROCEDURE: 04/09/2025 ATTENDING INBOUND CUSTOMER SERVICE AGENT: Dr. Epi Paredes REQUESTING PHYSICIAN: Steffanie Foley [...] Paredes M.D. 04/19/2025 1:23 PM Dictation Location: [place] [address] Transcribed By: TANO 04/19/25 1323 Dictated By: Epi Paredes MD 04/19/25 1322 Signed By: <Electronically signed by Epi Paredes MD in OV> 04/19/25 1323 us Naty Foley WOOD CARVING LATHE OPERATOR-PRESSING DEPARTMENT SUPERVISOR IMG NM PROCEDURES Final R esult * Echocardiogram (04/18/2025 10:19 AM EDT) 04/18/2025 10:1 9 AM EDT [facility] - 04/18/2025 6:41 PM EDT [facility] Main [place] [address] [place] [address] Echocardiogram Signed Patient: López Borjas MR#: [id number] : 1950 Acct:[id number] Age/Sex: 75 / M ADM Date: 04/18/25 Loc: Room: Type: [facility] Attending Dr: Naty Foley APRN Ordering Provider: [...] 1019 Signed By: Epi Paredes MD 04/18/25 9540 us Naty Foley WOOD CARVING LATHE OPERATOR-PRESSING DEPARTMENT SUPERVISOR CV ECHO PROCEDURES Final Result [facility] [place] [address], [place] * (ABNORMAL) [facility] Complete Blood Count Auto Diff (04/18/2025 8:40 AM EDT) Only the most recent of2 resultswithin the time period is included. [facility] White Blood Count 7.4 4.1 - 10.5 10*3/uL [facility] H[facility] Uncorrected WBC 7.4 4.1 - 10.5 10*3/uL [facility] Red Blood Count 5.15 3.90 - 5.60 10*6/uL [facility] Hemoglobin 16.5 13.0 - 17.0 g/dL [facility]IE Hematocrit 48.5 38.8 - 50.0 % [facility] Mean Corpuscular Volume 94.3 83.5 - 101 fL [facility] Mean Corpuscular Hemoglobin 32.0 27.5 - 35.2 pg [facility] Mean Corpuscular HGB Conc 33.9 32.5 - 35.6 g/dL [facility] Red Cell Distribution Width 14.0 12.0 - 14.8 % [facility] Platelet Count 213 150 - 450 10*3/uL [facility] Mean Platelet Volume 9.0 6.6 - 10.1 fL [facility] Neutrophils % (Auto) 68.1 . % [facility] Lymphocytes % (Auto) 17.0 . % [facility] Monocytes % (Auto) 11.6 . % [facility] Eosinophils % (Auto) 2.6 . % [facility] Basophils % (Auto) 0.7 . % [facility] NRBC% 0.1 0 - 0.5 /100{WBC} [facility]IE Neutrophils # (Auto) 5.0 1.8 - 7.7 10*3/uL [facility] Lymphocytes # (Auto) 1.3 1.00 - 4.8 10*3/uL [facility] Monocytes # (Auto) 0.9(H) 0.0 - 0.8 10*3/uL [facility] Eosinophils # (Auto) 0.2 0.0 - 0.45 10*3/uL [facility] Basophils # (Auto) 0.1 0.0 - 0.2 10*3/uL [facility] Comment:PERFORMED BY:[facility] [place], [place] [id number] MEDICAL DIRECTORAMBROSE OLSON M.D. [facility] Whole blood specimen 04/18/2025 8:40 AM EDT Naty Foley WOOD CARVING LATHE OPERATOR-PRESSING DEPARTMENT SUPERVISOR LAB BLOOD ORDERABLES Anabella velarde Result [facility] [address] [place] [address], [facility] [address] [place] [address] * (ABNORMAL) [facility] Lipid Panel (04/18/2025 8:40 AM EDT) Only the most recent of2 resultswithin the time period is included. [facility] Cholesterol 127(L) 140 - 200 mg/dL [facility] Comment:Chol less than 200 m g/dl low risk Chol 201-239 mg/dl borderline risk Chol 240 mg/dl and greater high risk [facility] HIE HDL Cholesterol 42 23 - 92 mg/dL [facility] Comment:HDL CHOL ATP-III CLA SSIFICATION Cardiovascular Risk HDL > or equal to 60 mg/dL LOW HDL < 40 mg/dL HIGH [facility] HIE Triglyceride w/Reflex 89 0 - 149 mg/dL [facility] Comment:TRIG ATP III CLASSIF ICATION TRIG less than 150 mg/dL Normal TRIG 150-199 mg/dL Borderline high TRIG 200-500 mg/dL High TRIG greater than 500 mg/dL Very high Standard traceable to the Center for Disease Conrtrol and Prevention (CDC) test method. [facility] H[facility] LDL Cholesterol,Calcula zackary 67 0 - 100 mg/dL [facility] Comment:LDL ATP III CLASSIFI CATION LDL less than 100 mg/dL Optimal LDL 100-129 mg/dL Near or above optimal LDL 130-159 mg/dL Borderline high LDL 160-189 mg/dL High LDL greater than 189 mg/dL Very high [facility] HIE VLDL CHOLESTEROL 17 mg/dL [facility] H[facility] Chol/HDL Ratio 3.0 <5.0 [facility] Comment:PERFORMED BY:[facility] [place] [address] [id number] MEDICAL DIRECTORAMBROSE OLSON M.D. [facility] Plasma specimen or serum specimen or whole blood specimen 04/18/2025 8:40 AM EDT Naty Foley WOOD CARVING LATHE OPERATOR-PRESSING DEPARTMENT SUPERVISOR LAB BLOOD ORDERABLES Anabella l Result Performing Organization Address City/[facility]/ZIP Co de Phone Number [address] [address], [place] [phone] * [facility] H[facility] Aspartate Amino Transferase (04/18/2025 8:40 AM EDT) Only the most recent of2 resultswithin the time period is included. [facility] Aspartate Amino Transferase 30 13 - 39 U/L [facility] Plasma specimen or serum specimen or whole blood specimen 04/18/2025 8:40 AM EDT Naty Foley WOOD CARVING LATHE OPERATOR-PRESSING DEPARTMENT SUPERVISOR LAB BLOOD ORDERABLES Anabella l Result Performing Organization Address City/[facility]/ZIP Co de Phone Number [facility] [address] [place] [address], [facility] [address] [place] [address] * [facility] Alanine Aminotransferase (04/18/2025 8:40 AM EDT) Only the most recent of2 resultswithin the time period is included. Pathologist [facility] NON-[facility] HIE Alanine Aminotransferase 27 7 - 52 U/L [facility] Plasma specimen or serum specimen or whole blood specimen 04/18/2025 8:40 AM EDT Naty Foley WOOD CARVING LATHE OPERATOR-PRESSING DEPARTMENT SUPERVISOR LAB BLOOD ORDERABLES Anabella l Result [facility] [address] [place] [address], [facility] [address] [place] [id number] * Nuclear Stress Test - Onbase Scan (04/18/2025) Narrative 04/18/2025 Ordered by an unspecified provider. Generic Provider Scanning CV STRESS PROCEDURES F [...] Metabolic Panel (03/26/2025 9:09 AM EDT) Pathologist [facility] NON-[facility] HIE Glucose 100 70 - 100 mg/dL [facility] Comment:Random Glucose Refer ence Range is dependent on time and content of last meal. Glucose of more than 200 mg/dL in a nonstressed, ambulatory subject supports the diagnosis of Diabetes Mellitus. ADA recommended reference range NON-[facility] HIE Blood Urea Nitrogen 24 7 - 25 mg/dL [facility] HIE Creatinine 1.42(H) 0.70 - 1.30 mg/dL [facility] NON-[facility] HIE ESTIMATED GFR 51.852 mL/Min [facility] H[facility] Sodium 139 136 - 145 mmol/L [facility] Potassium 4.7 3.5 - 5.1 mmol/L [facility] Chloride 105 98 - 107 mmol/L [facility] Carbon Dioxide 27.4 21.0 - 31.0 mmol/L [facility] Anion Gap 11.3 6.0 - 15.0 meq/L [facility]IE Calcium 9.0 8.6 - 10.3 mg/dL [facility] Plasma specimen or serum specimen or whole blood specimen 03/26/2025 9:09 AM EDT Naty Foley WOOD CARVING LATHE OPERATOR-PRESSING DEPARTMENT SUPERVISOR LAB BLOOD ORDERABLES Anabella velarde Result [facility] [address] [place] [id number], [facility] [address] [place] [id number] * CARDIAC EVENT MONITOR CONTINUOUS UP TO [...] was sinus in most of the recordings us Naty Foley APRN-PRESSING DEPARTMENT SUPERVISOR CV CARDIAC SERVICES PROCE DURGILSON Final Result CPACS from Last 3 Months Insurance MEDICARE PART A AND B [facility] SENIOR SUPPLEMENT [address] [id number] MEDICARE PART A AND B [id number] Care Teams Senior Data Warehouse Developer Relationship Specialty Start Date End Date Efe Morris MD [address] [facility] [place] [address] PCP - General Family Medicine 03/14/25
--- OUTSIDE RECORDS SUMMARY | 2025-05-22 07:01 | XMS_ITS | Clinical Summary ---
Author Organization [facility] Address [address] [place] [address] Care Team Providers Care Integration Solution Architect Name Role Phone Efe Morris MD Primary Care Provider [phone] Allergies Active Allergy Reactions Criticality Noted Date [...] Not on file Insurance MEDICARE [employer] [place]DEZ [id number] GENERIC AUTO INSURANCE Care Teams Integration Solution Architect Relationship Specialty Start Date End Date Efe Morris MD [address] [place] [address] PCP - General Family Medicine 10/25/17
--- OUTSIDE RECORDS SUMMARY | 2025-05-22 07:01 | XMS_ITS | Clinical Summary ---
Author Organization [employer] Address [address] [place] [address] Care Team Providers Care Developmental Writing Instructor Name Role Phone Efe Morris MD Primary Care Provider [phone] Allergies Active Allergy Reactions Criticality Noted Date [...] this topic Medical Devices Implanted Type Area Associate Dean Of Women Device Identifier Shelf Expiration Date Model / Serial / Lot Palacos R+G 1x40 (Bone Cement) Implanted:Qty: 3 on 10/28/2020 by Barak Fernández MD at [facility] Left: Knee 01/18/2023 [id number] / / [id number] Attune Knee System Revision Crs Rotating Platform Insert Size 7 8mm Aox Implanted:Qty: 1 on 10/28/2020 by Barak Fernández MD at [facility] Left: Knee [employer] 01/18/2025 1517-10-708 / / [id number] Attune Knee System Revision Distal Femoral Augment Implanted:Qty: 1 on 10/28/2020 by Barak Fernández MD at [facility] Left: Knee [employer] 08/20/2029 1547-07-001 / / [id number] Attune Knee System Revision Tibial Base Rotating Platform Size 6 Cemented Implanted:Qty: 1 on 10/28/2020 by Barak Fernández MD at [facility] Left: Knee [employer] 05/20/2029 1506-60-006 / / [id number] Attune Knee System Revision Pressfit Stem 12mm X60mm Implanted:Qty: 1 on 10/28/2020 by Barak Fernández MD at [facility] Left: Knee [employer] 07/21/2030 1513-12-060 / / [id number] Attune Knee System Revision Pressfit Stem 16mm X 110mm Implanted:Qty: 1 on 10/28/2020 by Barak Fernández MD at [facility] Left: Knee [employer] 09/20/2029 1513-16-110 / / [id number] Attune Knee System Revision Tibial Sleeve Porocoat Partially Coated 29mm Implanted:Qty: 1 on 10/28/2020 by Barak Fernández MD at [facility] Left: Knee [employer] 05/20/2029 1511-11-101 / / [id number] Attune Knee System Revision Crs Femoral Size 7 Left Cemented Implanted:Qty: 1 on 10/28/2020 by Barak Fernández MD at [facility] Left: Knee [employer] 11/20/2028 1504-40-107 / / [id number] Attune Knee System Revision Posterior Femoral Augment Size 7 8mm Cemented Implanted:Qty: 1 on 10/28/2020 by Barak Fernández MD at [facility] Left: Knee [employer] 05/20/2030 1549-07-002 / / [id number] Attune Knee System Revision Posterior Femoral Augment Size 7 4mm Cemented Implanted:Qty: 1 on 10/28/2020 by Barak Fernández MD at [facility] Left: Knee [employer] 04/20/2030 1549-07-001 / / [id number] Insurance MEDICARE A AND B MEDICARE SUPPLEMENT Advance Directives For more information, please contact: [phone] (7:30 AM - 6PM 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
--- OUTSIDE RECORDS SUMMARY | 2025-05-22 07:01 | XMS_ITS | Clinical Summary ---
Author Organization [facility] Address [address] [place] [address] Care Team Providers Care Service Unit Operator Name Role Phone Efe Morris MD Primary Care Provider [phone] Allergies Active Allergy Reactions Criticality Noted Date [...] N ot on file 10/28/2020 Data from: [email or web address] Last address used for calculation Not [...] 75+ series) 2026 Insurance MEDICARE Care Teams Service Unit Operator Relationship Specialty Start Date End Date Efe Morris MD PCP - General Family Medicine 11/07/17
--- OUTSIDE RECORDS SUMMARY | 2025-05-22 07:01 | XMS_ITS | CCD ---
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 Normal 0-100 [facility] Comment on above: Order Comment: DAVID ENGEL Y Result Comment: LDL ATP III CLASSIFICATION LDL less than 100 mg/dL Optimal LDL 100-129 mg/dL Near or above optimal LDL 130-159 mg/dL Borderline high LDL 160-189 mg/dL High LDL greater than 189 mg/dL Very high Performed By: #### C BC, ALT, LIPID, AST #### [facility] [address] [place] [address] [place] Triglyceride w/Reflex 89 mg/dL Normal 0-149 [facility] Comment on above: Order Comment: FASTI NG Y Result Comment: TRIG ATP III CLASSIFICATION TRIG less than 150 mg/dL Normal TRIG 150-199 mg/dL Borderline high TRIG 200-500 mg/dL High TRIG greater than 500 mg/dL Very high Standard traceable to the Center for Disease Conrtrol and Prevention (CDC) test method. Performed By: #### C BC, ALT, LIPID, AST #### [facility] [address] VLDL CHOLESTEROL 17 mg/dL Normal [facility] Comment on above: Order Comment: FASTI NG Y Performed By: #### C BC, ALT, LIPID, AST #### [facility] [address] Lymphocytes Auto (Bld) [#/Vo l]Ordered By: Adrien Foley on 04-18-2025 Lymphocytes (Bld) [#/Vol] Lymphocytes [#/volume] in Blood by Automated count 1.00-4.[address] [facility] Lymphocytes/100 WBC Auto (Bl d)Ordered By: Adrien Foley on 04-18-2025 Lymphocytes/100 WBC (Bld) Lymphocytes/100 leukocytes in Blood by Automated count . [facility] MCH Auto (RBC) [Entitic mass ]Ordered By: Adrien Foley on 04-18-2025 MCH (RBC) [Entitic mass] MCH [Entitic mass] by Automated count 27.5-35.[address] [facility] MCHC Auto (RBC) [Mass/Vol]Or dered By: Adrien Foley on 04-18-2025 MCHC (RBC) [Mass/Vol] MCHC [Mass/volume] by Automated count 32.5-35.[address] [facility] MCV Auto (RBC) [Entitic vol] Ordered By: Adrien Foley on 04-18-2025 MCV (RBC) [Entitic vol] MCV [Entitic volume] by Automated count 83.5-[address] [facility] Monocytes Auto (Bld) [#/Vol] Ordered By: Adrien Foley on 04-18-2025 Monocytes (Bld) [#/Vol] Automated blood monocyte count High 0.0-0.[address] [facility] Monocytes/100 WBC Auto (Bld) Ordered By: Adrien Foley on 04-18-2025 Monocytes/100 WBC (Bld) Automated monocyte % . [facility] Neutrophils Auto (Bld) [#/Vo l]Ordered By: Adrien Foley on 04-18-2025 Neutrophils (Bld) [#/Vol] Neutrophils [#/volume] in Blood by Automated count 1.8-7.[address] [facility] Neutrophils/100 WBC Auto (Bl d)Ordered By: Adrien Foley on 04-18-2025 Neutrophils/100 WBC (Bld) Automated neutrophil % . [facility] No Panel InformationOrdered By: Epi Paredes on 04-18-2025 [facility] [place] [address] Cardiac Stress Test Signed Patient: López Cortés MR#: [id number] : 1950 Date of Service:0 04/18/25 Age/Sex: 75 / M ADM Date: 5 Loc: Room: Type: [facility] Attending Dr: Adrien Foley CHIEF MEDICAL DIRECTOR Copies to: GLORIA Domínguez MD George Augustine [...] a separate cover. Transcribed By: kaity 04/18/25 1527 Dictated By: Epi Paredes MD 04/18/25 1527 Signed By: 04/18/[address] [facility] Work Phone: Nucleated erythrocytes [Pres ence] in Blood by Automated countOrdered By: Adrien Foley on 04-18-2025 Nucleated RBC Auto Ql (Bld) Nucleated erythrocytes [Presence] in Blood by Automated count 0-0.[address] [facility] Platelet mean volume Auto (B ld) [Entitic vol]Ordered By: Adrien Foley on 04-18-2025 Platelet mean volume (Bld) [Entitic vol] Platelet mean volume [Entitic volume] in Blood by Automated count 6.6-10.[address] [facility] Platelets Auto (Bld) [#/Vol] Ordered By: Adrien Foley on 04-18-2025 Platelets (Bld) [#/Vol] Platelets [#/volume] in Blood by Automated count 150-[address] [facility] RBC Auto (Bld) [#/Vol]Ordere d By: Adrien Foley on 04-18-2025 RBC (Bld) [#/Vol] Erythrocytes [#/volu me] in Blood by Automated count 3.90-5.[address] [facility] Serum or plasma total choles terol/high density lipoprotein (HDL) cholesterol mass ratOrdered By: Adrien Foley on 04-18-2025 Cholesterol.total/Chol esterol in HDL [Mass ratio] Serum or plasma total cholesterol/high density lipoprotein (HDL) cholesterol mass rat <5.[address] [facility] Triglyceride [Mass/volume] i n Serum or PlasmaOrdered By: Adrien Foley on 04-18-2025 Triglyceride [Mass/Vol] Triglyceride [Mass/volume] in Serum or Plasma 0-[address] [facility] Comment on above: TRIG ATP III CLASSIF ICATIONTRIG less than 150 mg/dL NormalTRIG 150-199 mg/dL Borderline highTRIG 200-500 mg/dL High TRIG greater than 500 mg/dL Very highStandard traceable to the Center for Disease Conrtrol and Prevention (CDC) test method. WBC Auto (Bld) [#/Vol]Ordere d By: Adrien Foley on 04-18-2025 WBC (Bld) [#/Vol] Leukocytes [#/volume ] in Blood by Automated count 4.1-10.[address] [facility] Alanine Aminotransferaseon 0 03-26-2025 ALT [Catalytic activity/Vol] 26 U/L Normal 7-52 [facility] Comment on above: Performed By: #### C BC, ALT, LIPID, AST #### [facility] [address] Alanine aminotransferase [En zymatic activity/volume] in Serum or PlasmaOrdered By: Adrien Foley on 03-26-2025 ALT [Catalytic activity/Vol] Alanine aminotransferase [Enzymatic activity/volume] in Serum or Plasma [facility] Aspartate Amino Transferaseo n 03-26-2025 AST [Catalytic activity/Vol] 26 U/L Normal [facility] Comment on above: Performed By: #### A LT, AST, LIPID, BMP, CBC #### [address] Aspartate aminotransferase [ Enzymatic activity/volume] in Serum or PlasmaOrdered By: Adrien Foley on 03-26-2025 AST [Catalytic activity/Vol] Aspartate aminotransferase [Enzymatic activity/volume] in Serum or Plasma [facility] Basic Metabolic Panelon Anion gap [Moles/Vol] 11.3 mmol/L Normal 6.0-15.0 [facility] Comment on above: Performed By: #### A LT, AST, LIPID, BMP, CBC #### [address] Calcium [Mass/Vol] 9.0 mg/dL Normal 8.6-10.3 [facility] Comment on above: Performed By: #### A LT, AST, LIPID, BMP, CBC #### [address] Chloride [Moles/Vol] 105 mmol/L Normal 98-107 [facility] Comment on above: Performed By: #### A LT, AST, LIPID, BMP, CBC #### [address] CO2 [Moles/Vol] 27.4 mmol/L Normal 21.0-31.0 [facility] Comment on above: Performed By: #### A LT, AST, LIPID, BMP, CBC #### [place] [address] [place] Creatinine [Mass/Vol] 1.42 mg/dL High 0.70-1.30 [facility] Comment on above: Performed By: #### A LT, AST, LIPID, BMP, CBC #### [address] Estimated GFR 51.852 mL/Min Normal [facility] Comment on above: Performed By: #### A LT, AST, LIPID, BMP, CBC #### [address] Glucose [Mass/Vol] 100 mg/dL Normal 70-100 [facility] Comment on above: Result Comment: [facility] Glucose Reference Range is dependent on time and content of last meal. Glucose of more than 200 mg/dL in a nonstressed, ambulatory subject supports the diagnosis of Diabetes Mellitus. ADA recommended reference range Performed By: #### A LT, AST, LIPID, BMP, CBC #### [address] Potassium [Moles/Vol] 4.7 mmol/L Normal 3.5-5.1 [facility] Comment on above: Performed By: #### A LT, AST, LIPID, BMP, CBC #### [address] Sodium [Moles/Vol] 139 mmol/L Normal 136-145 [facility] Comment on above: Performed By: #### A LT, AST, LIPID, BMP, CBC #### [address] Urea nitrogen [Mass/Vol] 24 mg/dL Normal 7-25 [facility] Comment on above: Performed By: #### A LT, AST, LIPID, BMP, CBC #### [place] [address] [place] Basophils Auto (Bld) [#/Vol] Ordered By: Adrien Foley on 03-26-2025 Basophils (Bld) [#/Vol] Automated basophil count 0.0-0.2 [facility] Basophils/100 WBC Auto (Bld) Ordered By: Adrien Foley on 03-26-2025 Basophils/100 WBC (Bld) Automated basophil % . [facility] Calcium [Mass/volume] in Ser um or PlasmaOrdered By: Adrien Foley on 03-26-2025 Calcium [Mass/Vol] Calcium [Mass/volume ] in Serum or Plasma 8.6-10.[address] [facility] Carbon dioxide, total [Moles /volume] in Serum or PlasmaOrdered By: Adrien Foley on 03-26-2025 CO2 [Moles/Vol] Carbon dioxide, tota l [Moles/volume] in Serum or Plasma 21.0-31.[address] [facility] Chloride [Moles/volume] in S chong or PlasmaOrdered By: Adrien Foley on 03-26-2025 Chloride [Moles/Vol] Chloride [Moles/vol ume] in Serum or Plasma 98-[address] [facility] Cholesterol [Mass/volume] in Serum or PlasmaOrdered By: Adrien Foley on 03-26-2025 Cholesterol [Mass/Vol] Cholesterol [Mass /volume] in Serum or Plasma 140-[address] [facility] Comment on above: Chol less than 200 m g/dl low riskChol 201-239 mg/dl borderline riskChol 240 mg/dl and greater high risk Cholesterol in HDL [Mass/vol ume] in Serum or PlasmaOrdered By: Adrien Foley on 03-26-2025 Cholesterol in HDL [Mass/Vol] Serum or plasma high density lipoprotein (HDL) cholesterol measurement 23-[address] [facility] Comment on above: HDL CHOL ATP-III CLA SSIFICATION Cardiovascular RiskHDL > or equal to 60 mg/dL LOWHDL < 40 mg/dL HIGH Cholesterol in LDL Calc [Mas s/Vol]Ordered By: Adrien Foley on 03-26-2025 Cholesterol in LDL [Mass/Vol] Cholesterol in LDL [Mass/volume] in Serum or Plasma by calculation 0-[address] [facility] Comment on above: LDL ATP III CLASSIFI CATIONLDL less than 100 mg/dL OptimalLDL 100-129 mg/dL Near or above optimalLDL 130-159 mg/dL Borderline highLDL 160-189 mg/dL HighLDL greater than 189 mg/dL Very high Cholesterol in VLDL Calc [Ma ss/Vol]Ordered By: Adrien Foley on 03-26-2025 Cholesterol in VLDL [Mass/Vol] Cholesterol in VLDL [Mass/volume] in Serum or Plasma by calculation [facility] Complete Blood Count Auto Di ffon 03-26-2025 Basophils (Bld) [#/Vol] 0.1 10*3/uL Normal 0.0-0.2 [facility] Comment on above: Result Comment: PERF ORMED BY: [place] [address] PATHOLOGIST USED [employer] MARCIN JOSEPH M.D. Performed By: #### A LT, AST, LIPID, BMP, CBC #### [address] Basophils/100 WBC (Bld) 1.1 % Normal . [facility] Comment on above: Performed By: #### A LT, AST, LIPID, BMP, CBC #### [address] Eosinophils (Bld) [#/Vol] 0.2 10*3/uL Normal 0.0-0.45 [facility] Comment on above: Performed By: #### A LT, AST, LIPID, BMP, CBC #### [address] Eosinophils/100 WBC (Bld) 3.7 % Normal . [facility] Comment on above: Performed By: #### A LT, AST, LIPID, BMP, CBC #### [address] Erythrocyte distribution width (RBC) [Ratio] 14.1 % Normal 12.0-14.8 [facility] Comment on above: Performed By: #### A LT, AST, LIPID, BMP, CBC #### [address] Hematocrit (Bld) [Volume fraction] 46.8 % Normal 38.8-50.0 [facility] Comment on above: Performed By: #### A LT, AST, LIPID, BMP, CBC #### [address] Hemoglobin (Bld) [Mass/Vol] 16.0 g/dL Normal 13.0-17.0 [facility] Comment on above: Performed By: #### A LT, AST, LIPID, BMP, CBC #### [address] Lymphocytes (Bld) [#/Vol] 1.4 10*3/uL Normal 1.00-4.8 [facility] Comment on above: Performed By: #### A LT, AST, LIPID, BMP, CBC #### [address] Lymphocytes/100 WBC (Bld) 21.1 % Normal . [facility] Comment on above: Performed By: #### A LT, AST, LIPID, BMP, CBC #### [address] MCH (RBC) [Entitic mass] 32.3 pg Normal 27.5-35.2 [facility] Comment on above: Performed By: #### A LT, AST, LIPID, BMP, CBC #### [address] MCV (RBC) [Entitic vol] 94.4 fL Normal 83.5-101 [facility] Comment on above: Performed By: #### A LT, AST, LIPID, BMP, CBC #### [address] Mean Corpuscular HGB Conc 34.2 g/dL Normal 32.5-35.6 [facility] Comment on above: Performed By: #### A LT, AST, LIPID, BMP, CBC #### [address] Monocytes (Bld) [#/Vol] 0.8 10*3/uL Normal 0.0-0.8 [facility] Comment on above: Performed By: #### A LT, AST, LIPID, BMP, CBC #### [address] Monocytes/100 WBC (Bld) 12.1 % Normal . [facility] Comment on above: Performed By: #### A LT, AST, LIPID, BMP, CBC #### [address] Neutrophils (Bld) [#/Vol] 4.1 10*3/uL Normal 1.8-7.7 [facility] Comment on above: Performed By: #### A LT, AST, LIPID, BMP, CBC #### [address] Neutrophils/100 WBC (Bld) 62.0 % Normal . [facility] Comment on above: Performed By: #### A LT, AST, LIPID, BMP, CBC #### [address] NRBC% 0.1 /100{WBC} Normal 0-0.5 [facility] Comment on above: Performed By: #### A LT, AST, LIPID, BMP, CBC #### [address] Platelet mean volume (Bld) [Entitic vol] 8.8 fL Normal 6.6-10.1 [facility] Comment on above: Performed By: #### A LT, AST, LIPID, BMP, CBC #### [place] [address] [place] Platelets (Bld) [#/Vol] 179 10*3/uL Normal 150-450 [facility] Comment on above: Performed By: #### A LT, AST, LIPID, BMP, CBC #### [address] RBC (Bld) [#/Vol] 4.96 10*6/uL Normal 3.90-5.60 [facility] Comment on above: Performed By: #### A LT, AST, LIPID, BMP, CBC #### [address] WBC (Bld) [#/Vol] 6.6 10*3/uL Normal 4.1-10.5 [facility] Comment on above: Performed By: #### A LT, AST, LIPID, BMP, CBC #### [place] [id number] [place] Creatinine [Mass/volume] in Serum or PlasmaOrdered By: Adrien Foley on 03-26-2025 Creatinine [Mass/Vol] Creatinine [Mass/v olume] in Serum or Plasma High 0.70-1.[address] [facility] Eosinophils Auto (Bld) [#/Vo l]Ordered By: Adrien Foley on 03-26-2025 Eosinophils (Bld) [#/Vol] Automated eosinophil count 0.0-0.45 [facility] Eosinophils/100 WBC Auto (Bl d)Ordered By: Adrien Foley on 03-26-2025 Eosinophils/100 WBC (Bld) Automated eosinophil % . [facility] Erythrocyte distribution wid th Auto (RBC) [Ratio]Ordered By: Adrien Foley on 03-26-2025 Erythrocyte distribution width (RBC) [Ratio] Erythrocyte distribution width [Ratio] by Automated count 12.0-14.[address] [facility] Glucose [Mass/volume] in Ser um or PlasmaOrdered By: Adrien Foley on 03-26-2025 Glucose [Mass/Vol] Glucose [Mass/volume ] in Serum or Plasma 70-[address] [facility] Comment on above: ADA recommended refe rence rangeRandom Glucose Reference Range is dependent on time and content of last meal. Glucose of more than 200 mg/dL in a nonstressed, ambulatory subject supports the diagnosis of Diabetes Mellitus. Hematocrit Auto (Bld) [Volum e fraction]Ordered By: Adrien Foley on 03-26-2025 Hematocrit (Bld) [Volume fraction] Hematocrit [Volume Fraction] of Blood by Automated count 38.8-50.[address] [facility] Hemoglobin [Mass/volume] in BloodOrdered By: Adrien Foley on 03-26-2025 Hemoglobin (Bld) [Mass/Vol] Hemoglobin [Mass/volume] in Blood 13.0-17.[address] [facility] Leukocytes [#/volume] correc zackary for nucleated erythrocytes in Blood by Automated counOrdered By: Adrien Foley on 03-26-2025 WBC corrected for nucl RBC Auto (Bld) [#/Vol] Leukocytes [#/volume] corrected for nucleated erythrocytes in Blood by Automated coun 4.1-10.[address] [facility] Lipid Panelon 05-06-2025 Cholesterol [Mass/Vol] 142 mg/dL Normal 140-200 [facility] Comment on above: Result Comment: Chol less than 200 mg/dl low risk Chol 201-239 mg/dl borderline risk Chol 240 mg/dl and greater high risk Performed By: #### C BC, ALT, LIPID, AST #### [facility] [address] Cholesterol in HDL [Mass/Vol] 43 mg/dL Normal 23-92 [facility] Comment on above: Result Comment: HDL CHOL ATP-III CLASSIFICATION Cardiovascular Risk HDL > or equal to 60 mg/dL LOW HDL < 40 mg/dL HIGH Performed By: #### C BC, ALT, LIPID, AST #### [facility] [address] Cholesterol.total/Chol esterol in HDL [Mass ratio] 3.3 {ratio} Normal <5.0 [facility] Comment on above: Result Comment: PERF ORMED BY: [place] [address] PATHOLOGIST USED [employer] MARCIN JOSEPH M.D. Performed By: #### C BC, ALT, LIPID, AST #### [address] LDL Cholesterol,Calculated 85 mg/dL Normal 0-100 [facility] Comment on above: Result Comment: LDL ATP III CLASSIFICATION LDL less than 100 mg/dL Optimal LDL 100-129 mg/dL Near or above optimal LDL 130-159 mg/dL Borderline high LDL 160-189 mg/dL High LDL greater than 189 mg/dL Very high Performed By: #### C BC, ALT, LIPID, AST #### [facility] [address] [place] [address] [place] Triglyceride w/Reflex 71 mg/dL Normal 0-149 [facility] Comment on above: Result Comment: TRIG ATP III CLASSIFICATION TRIG less than 150 mg/dL Normal TRIG 150-199 mg/dL Borderline high TRIG 200-500 mg/dL High TRIG greater than 500 mg/dL Very high Standard traceable to the Center for Disease Conrtrol and Prevention (CDC) test method. Performed By: #### C BC, ALT, LIPID, AST #### [facility] [address] VLDL CHOLESTEROL 14 mg/dL Normal [facility] Comment on above: Performed By: #### C BC, ALT, LIPID, AST #### [facility] [address] Lymphocytes Auto (Bld) [#/Vo l]Ordered By: Adrien Foley on 03-26-2025 Lymphocytes (Bld) [#/Vol] Lymphocytes [#/volume] in Blood by Automated count 1.00-4.[address] [facility] Lymphocytes/100 WBC Auto (Bl d)Ordered By: Adrien Foley on 03-26-2025 Lymphocytes/100 WBC (Bld) Lymphocytes/100 leukocytes in Blood by Automated count . [facility] MCH Auto (RBC) [Entitic mass ]Ordered By: Adrien Foley on 03-26-2025 MCH (RBC) [Entitic mass] MCH [Entitic mass] by Automated count 27.5-35.[address] [facility] MCHC Auto (RBC) [Mass/Vol]Or dered By: Adrien Foley on 03-26-2025 MCHC (RBC) [Mass/Vol] MCHC [Mass/volume] by Automated count 32.5-35.[address] [facility] MCV Auto (RBC) [Entitic vol] Ordered By: Adrien Foley on 03-26-2025 MCV (RBC) [Entitic vol] MCV [Entitic volume] by Automated count 83.5-[address] [facility] Monocytes Auto (Bld) [#/Vol] Ordered By: Adrien Foley on 03-26-2025 Monocytes (Bld) [#/Vol] Automated blood monocyte count 0.0-0.[address] [facility] Monocytes/100 WBC Auto (Bld) Ordered By: Adrien Foley on 03-26-2025 Monocytes/100 WBC (Bld) Automated monocyte % . [facility] Neutrophils Auto (Bld) [#/Vo l]Ordered By: Adrien Foley on 03-26-2025 Neutrophils (Bld) [#/Vol] Neutrophils [#/volume] in Blood by Automated count 1.8-7.[address] [facility] Neutrophils/100 WBC Auto (Bl d)Ordered By: Adrien Foley on 03-26-2025 Neutrophils/100 WBC (Bld) Automated neutrophil % . [facility] No Panel InformationOrdered By: Adrien Foley on 03-26-2025 Estimated GFR (CKD-EPI) 51.852 mL/Min [facility] Creatinine Clearance (Chem N/A [facility] Nucleated erythrocytes [Pres ence] in Blood by Automated countOrdered By: Adrien Foley on 03-26-2025 Nucleated RBC Auto Ql (Bld) Nucleated erythrocytes [Presence] in Blood by Automated count 0-0.[address] [facility] Platelet mean volume Auto (B ld) [Entitic vol]Ordered By: Adrien Foley on 03-26-2025 Platelet mean volume (Bld) [Entitic vol] Platelet mean volume [Entitic volume] in Blood by Automated count 6.6-10.[address] [facility] Platelets Auto (Bld) [#/Vol] Ordered By: Adrien Foley on 03-26-2025 Platelets (Bld) [#/Vol] Platelets [#/volume] in Blood by Automated count 150-[address] [facility] Potassium [Moles/volume] in Serum or PlasmaOrdered By: Adrien Foley on 03-26-2025 Potassium [Moles/Vol] Potassium [Moles/v olume] in Serum or Plasma 3.5-5.[address] [facility] RBC Auto (Bld) [#/Vol]Ordere d By: Adrien Foley on 03-26-2025 RBC (Bld) [#/Vol] Erythrocytes [#/volu me] in Blood by Automated count 3.90-5.[address] [facility] Serum or plasma anion gap de terminationOrdered By: Adrien Foley on 03-26-2025 Anion gap [Moles/Vol] Serum or plasma an ion gap determination 6.0-15.[address] [facility] Serum or plasma total choles terol/high density lipoprotein (HDL) cholesterol mass ratOrdered By: Adrien Foley on 03-26-2025 Cholesterol.total/Chol esterol in HDL [Mass ratio] Serum or plasma total cholesterol/high density lipoprotein (HDL) cholesterol mass rat <5.[address] [facility] Sodium [Moles/volume] in Ser um or PlasmaOrdered By: Adrien Foley on 03-26-2025 Sodium [Moles/Vol] Sodium [Moles/volume ] in Serum or Plasma 136-[address] [facility] Triglyceride [Mass/volume] i n Serum or PlasmaOrdered By: Adrien Foley on 03-26-2025 Triglyceride [Mass/Vol] Triglyceride [Mass/volume] in Serum or Plasma 0-[address] [facility] Comment on above: TRIG ATP III CLASSIF ICATIONTRIG less than 150 mg/dL NormalTRIG 150-199 mg/dL Borderline highTRIG 200-500 mg/dL High TRIG greater than 500 mg/dL Very highStandard traceable to the Center for Disease Conrtrol and Prevention (CDC) test method. Urea nitrogen [Mass/volume] in Serum or PlasmaOrdered By: Adrien Foley on 03-26-2025 Urea nitrogen [Mass/Vol] Urea nitrogen [Mass/volume] in Serum or Plasma 7-[address] [facility] WBC Auto (Bld) [#/Vol]Ordere d By: Adrien Foley on 03-26-2025 WBC (Bld) [#/Vol] Leukocytes [#/volume ] in Blood by Automated count 4.1-10.[address] [facility] Ambulatory Visit Summaryon 1 12-24-2023 Ambulatory [...] care. Normal [facility] General Surgery Office/Clini c Noteon 10-23-2024 General [...] virus vaccine, inactivated 08/2023 Recorded SARS-CoV-2 (COVID-19) mRNAMUL.ORD![id number] 09/24/2022 Recorded influenza virus vaccine, inactivated 08/31/2022 Recorded SARSCoV2 mRNA(hueiqogsn-ileg-kzgudn) vac 03/29/2022 Recorded SARS-CoV-2 (COVID-19) Ad26 vaccine [...] virus vaccine, inactivated 09/09/2016 Recorded Normal [facility] Comment on above: Result Comment: Elec tronically [...] AM EST With: Obey ALAS MD Where: [facility] [address] Medications What How Much When Instructions [...] choosing us for your care. Esteban [facility] General Surgery Office/Clini c Noteon 09-18-2024 General [...] virus vaccine, inactivated 08/2023 Recorded SARS-CoV-2 (COVID-19) mRNAMUL.ORD![id number] 09/24/2022 Recorded influenza virus vaccine, inactivated 08/31/2022 Recorded SARSCoV2 mRNA(qnvbcrhwx-bnox-wusxik) vac 03/29/2022 Recorded SARS-CoV-2 (COVID-19) Ad26 vaccine [...] virus vaccine, inactivated 09/09/2016 Recorded Normal [facility] Comment on above: Result Comment: Elec tronically Signed By: EVETTE RILEY, Oeby Castañeda\.br\Date and Time Signed: 09/18/24 20:07 EDT Pathology Request for Lab Co rpon 08-29-2024 Pathology Request for Lab Zaira Normal [facility] Comment on above: Order Comment: PATHO LOGY SKIN SPECIMEN Result Comment: See report. Scanned copy available in EMR. PERFORMED BY: [place] [id number] PATHOLOGIST USED [employer] KIMBERLEE MATHIAS M.D. Performed By: #### P ATH TO [facility] #### [address] Ambulatory Visit Summaryon 0 08-14-2024 Ambulatory [...] care. Normal [facility] General Surgery Office/Clini c Noteon 08-14-2024 General [...] plan wide excision under local anesthesia at [facility], informed consent obtained. Follow-up No qualifying [...] virus vaccine, inactivated 08/2023 Recorded SARS-CoV-2 (COVID-19) mRNAMUL.ORD![id number] 09/24/2022 Recorded influenza virus vaccine, inactivated 08/31/2022 Recorded SARSCoV2 mRNA(bjeetjtrq-rxhd-pvkqrz) vac 03/29/2022 Recorded SARS-CoV-2 (COVID-19) Ad26 vaccine 09/2021 Recorded SARS-CoV-2 (COVID-19) mRNA-1273 vaccine 09/13/2021 Recorded SARS-CoV-2 (COVID-19) Ad26 vaccine 02/2021 Recorded SARS-CoV-2 (COVID-19) mRNA-1273 vaccine 02/04/2021 Recorded SARS-CoV-2 (COVID-19) Ad26 vaccine 01/2021 Recorded SARS-CoV-2 (COVID-19) mRNA-1273 vaccine 01/07/2021 Recorded influenza virus vaccine, inactivated 09/03/2020 Recorded influenza virus vaccine, inactivated (more content not included)... Normal [facility] Comment on above: Result Comment: Elec tronically Signed By: EVETTE RILEY, Obey Varela\Date and Time Signed: 08/14/24 15:06 EDT INSULINon 01-28-2023 Insulin 15.8 uIU/mL Normal 2.6-24.9 [facility] Comment on above: Performed By: #### I NSULIN #### [facility] [address] [place] [address] Dr. Braulio Fritz CBC AUTO DIFFon 01-27-2023 BASO # 0.0 103/ul Normal 0.0-0.1 [facility] Comment on above: Performed By: #### I NSULIN #### [facility] [address] [place] [address] Dr. Braulio Fritz Basophils/100 WBC (Bld) 0.5 % Normal 0.2-2.0 [facility] Comment on above: Performed By: #### I NSULIN #### [facility] [address] [place] [address] Dr. Braulio Fritz EO # 0.3 103/ul Normal 0.0-0.7 [facility] Comment on above: Performed By: #### I NSULIN #### [facility] [address] [place] [address] Dr. Braulio Fritz Eosinophils/100 WBC (Bld) 3.2 % Normal 0.9-7.0 [facility] Comment on above: Performed By: #### I NSULIN #### [facility] [address] [place] [address] Dr. Braulio Fritz Erythrocyte distribution width (RBC) [Ratio] 14.8 % Normal 11.0-15.0 [facility] Comment on above: Performed By: #### I NSULIN #### [facility] [address] [place] [address] Dr. Braulio Fritz Hematocrit (Bld) [Volume fraction] 48.1 % Normal 42.0-54.0 [facility] Comment on above: Performed By: #### I NSULIN #### [facility] [address] [place] [address] Dr. Braulio Fritz Hemoglobin (Bld) [Mass/Vol] 16.1 g/dL Normal 14.0-18.0 [facility] Comment on above: Performed By: #### I NSULIN #### [facility] [address] [place] [address] Dr. Braulio Fritz IG # 0.05 10e3/ul Critically high 0.00-0.03 [facility] Comment on above: Performed By: #### I NSULIN #### [facility] [address] [place] [address] Dr. Braulio Fritz IG % 0.6 % Critically high 0.0-0.5 [facility] Comment on above: Performed By: #### I NSULIN #### [facility] [address] [place] [address] Dr. Braulio Fritz LYMPH # 2.2 103/ul Normal 1.2-3.8 [facility] Comment on above: Performed By: #### I NSULIN #### [facility] [address] [place] [address] Dr. Braulio Fritz Lymphocytes/100 WBC (Bld) 25.7 % Normal 20.5-60.0 [facility] Comment on above: Performed By: #### I NSULIN #### [facility] [address] [place] [address] Dr. Braulio Fritz MANUAL DIFF REQ NO Normal [facility] Comment on above: Performed By: #### I NSULIN #### [facility] [address] [place] [address] Dr. Braulio Fritz MCH (RBC) [Entitic mass] 31.7 pg Normal 25.9-34.0 [facility] Comment on above: Performed By: #### I NSULIN #### [facility] [address] [place] [address] Dr. Braulio Fritz MCHC (RBC) [Mass/Vol] 33.5 g/dL Normal 29.9-35.2 [facility] Comment on above: Performed By: #### I NSULIN #### [facility] [address] [place] [address] Dr. Braulio Fritz MCV (RBC) [Entitic vol] 94.7 fL Critically high 80.0-94.0 [facility] Comment on above: Performed By: #### I NSULIN #### [facility] [address] [place] [address] Dr. Braulio Fritz MONO # 0.9 103/ul Critically high 0.3-0.8 [facility] Comment on above: Performed By: #### I NSULIN #### [facility] [address] [place] [address] Dr. Braulio Fritz Monocytes/100 WBC (Bld) 10.5 % Normal 1.7-12.0 [facility] Comment on above: Performed By: #### I NSULIN #### [facility] [address] [place] [address] Dr. Braulio Fritz NEUT # 5.1 103/ul Normal 1.4-6.5 [facility] Comment on above: Performed By: #### I NSULIN #### [facility] [address] [place] [address] Dr. Braulio Fritz Neutrophils/100 WBC (Bld) 59.5 % Normal 43.0-75.0 [facility] Comment on above: Performed By: #### I NSULIN #### [facility] [address] [place] [address] Dr. Braulio Fritz Platelet mean volume (Bld) [Entitic vol] 10.5 fL Normal 9.5-13.5 [facility] Comment on above: Performed By: #### I NSULIN #### [facility] [address] [place] [address] Dr. Braulio Fritz PLT 187 103/ul Normal 150-450 [facility] Comment on above: Performed By: #### I NSULIN #### [facility] [address] [place] [address] Dr. Braulio Fritz RBC 5.08 106/ul Normal 4.70-6.10 [facility] Comment on above: Performed By: #### I NSULIN #### [facility] [address] [place] [address] Dr. Braulio Fritz WBC 8.5 103/ul Normal 4.0-11.0 [facility] Comment on above: Performed By: #### I NSULIN #### [facility] [address] [place] [address] Dr. Braulio Fritz FREE THYROXINE INDEX T7on FTI 2.39 Normal 1.30-4.50 [facility] Comment on above: Performed By: #### I NSULIN #### [facility] [address] [place] [address] Dr. Braulio Fritz T3U 38.0 % Normal 33.0-40.0 [facility] Comment on above: Performed By: #### I NSULIN #### [facility] [address] [place] [address] Dr. Braulio Fritz T4 [Mass/Vol] 6.30 ug/dL Normal 4.50-12.10 [facility] Comment on above: Performed By: #### I NSULIN #### [facility] [address] [place] [address] Dr. Braulio Fritz GLYCOHEMOGLOBIN A1Con 2022 ADA RECOMMENDATION SEE BELOW Normal [facility] Comment on above: Result Comment: ADA RECOMMENDED LIMIT 4.0 - 6.0 ADA THERAPEUTIC TARGET < 7.0 ACTION SUGGESTED > 7.0 Performed By: #### A 1C #### [facility] [address] [place] [address] Dr. Braulio Fritz Glucose [Mass/Vol] 111 mg/dL Normal [facility] Comment on above: Performed By: #### A 1C #### [facility] [address] [place] [address] Dr. Braulio Fritz HbA1c (Bld) [Mass fraction] 5.5 % Normal 4.5-6.2 [facility] Comment on above: Performed By: #### A 1C #### [facility] [address] [place] [address] Dr. Braulio Fritz LIPID PROFILEon 01-27-2023 CHOL-HDL RATIO NORM SEE BELOW Normal [facility] Comment on above: Result Comment: 3.3 - 4.4 LOW RISK 4.4 - 7.1 AVERAGE RISK 7.1 - 11.0 MODERATE RISK >11.0 HIGH RISK Performed By: #### I NSULIN #### [facility] [address] [address] [address] Braulio Fritz Cholesterol [Mass/Vol] 162 mg/dL Normal <=200 [facility] Comment on above: Performed By: #### I NSULIN #### [facility] [address] [address] [address] Braulio Fritz Cholesterol in HDL [Mass/Vol] 48 mg/dL Normal 40-60 [facility] Comment on above: Performed By: #### I NSULIN #### [facility] [address] [address] [address] Braulio Fritz Cholesterol in LDL [Mass/Vol] 91.6 mg/dL Normal [facility] Comment on above: Performed By: #### I NSULIN #### [facility] [address] [address] [address] Braulio Fritz Cholesterol.total/Chol esterol in HDL [Mass ratio] 3.4 {ratio} Normal [facility] Comment on above: Performed By: #### I NSULIN #### [facility] [address] [address] [address] Braulio Fritz HDL NORMAL > or = 60 mg/dl - LO W CARDIOVASCULAR RISK <40 mg/dl - HIGH CARDIOVASCULAR RISK Normal [facility] Comment on above: Performed By: #### I NSULIN #### [facility] [address] [address] [address] Braulio Fritz LDL CALC NORMAL SEE BELOW Normal [facility] Comment on above: Result Comment: <100 mg/dl OPTIMAL 100 - 129 mg/dl NEAR OR ABOVE OPTIMAL 130 - 159 mg/dl BORDERLINE HIGH 160 - 189 mg/dl HIGH >190 mg/dl VERY HIGH Performed By: #### I NSULIN #### [facility] [address] [place] [address] Dr. Braulio Fritz Triglyceride [Mass/Vol] 112 mg/dL Normal <=150 [facility] Comment on above: Performed By: #### I NSULIN #### [facility] [address] [place] [address] Dr. Braulio Fritz VLDL CALC 22.4 mg/dL Normal [facility] Comment on above: Performed By: #### I NSULIN #### [facility] [address] [place] [address] Dr. Braulio Fritz PROF 14(COMP METB)on 023 Albumin [Mass/Vol] 3.6 g/dL Normal 3.4-5.0 [facility] Comment on above: Performed By: #### I NSULIN #### [facility] [address] [place] [address] Dr. Braulio Fritz Albumin/Globulin [Mass ratio] 1.1 {ratio} Normal [facility] Comment on above: Performed By: #### I NSULIN #### [facility] [address] [place] [address] Dr. Braulio Fritz ALP [Catalytic activity/Vol] 111 U/L Normal 46-116 [facility] Comment on above: Performed By: #### I NSULIN #### [facility] [address] [place] [address] Dr. Braulio Fritz ALT [Catalytic activity/Vol] 31 U/L Normal 16-63 [facility] Comment on above: Performed By: #### I NSULIN #### [facility] [address] [place] [address] Dr. Braulio Fritz Anion gap [Moles/Vol] 12.6 mmol/L Normal [facility] Comment on above: Performed By: #### I NSULIN #### [facility] [address] [place] [address] Dr. Braulio Fritz AST [Catalytic activity/Vol] 23 U/L Normal 15-37 [facility] Comment on above: Performed By: #### I NSULIN #### [facility] [address] [place] [address] Dr. Braulio Fritz Bilirubin [Mass/Vol] 1.7 mg/dL Critically high 0.2-1.0 [facility] Comment on above: Performed By: #### I NSULIN #### [facility] [address] [place] [address] Dr. Braulio Fritz Calcium [Mass/Vol] 9.1 mg/dL Normal 8.5-10.1 [facility] Comment on above: Performed By: #### I NSULIN #### [facility] [address] [place] [address] Dr. Braulio Fritz Chloride [Moles/Vol] 107 mmol/L Normal 98-107 [facility] Comment on above: Performed By: #### I NSULIN #### [facility] [address] [place] [address] Dr. Braulio Fritz CO2 [Moles/Vol] 28.7 mmol/L Normal 21.0-32.0 [facility] Comment on above: Performed By: #### I NSULIN #### [facility] [address] [place] [address] Dr. Braulio Fritz Creatinine [Mass/Vol] 1.41 mg/dL Critically high 0.70-1.30 [facility] Comment on above: Performed By: #### I NSULIN #### [facility] [address] [place] [address] Dr. Braulio Fritz EGFR-AF BRITISH 60 mL/min/1.73m2 Normal >=60 [facility] Comment on above: Performed By: #### I NSULIN #### [facility] [address] [place] [address] Dr. Braulio Fritz EGFR-NON AF BRITISH 49 mL/min/1.73m2 Critically low >=60 [facility] Comment on above: Performed By: #### I NSULIN #### [facility] [address] [place] [address] Dr. Braulio Fritz Globulin (S) [Mass/Vol] 3.2 g/dL Normal [facility] Comment on above: Performed By: #### I NSULIN #### [facility] [address] [place] [address] Dr. Braulio Fritz Glucose [Mass/Vol] 95 mg/dL Normal 74-106 [facility] Comment on above: Performed By: #### I NSULIN #### [facility] [address] [address] [address] Braulio Fritz Potassium [Moles/Vol] 4.3 mmol/L Normal 3.5-5.1 [facility] Comment on above: Performed By: #### I NSULIN #### [facility] [address] [address] [address] Braulio Fritz Protein [Mass/Vol] 6.8 g/dL Normal 6.4-8.2 [facility] Comment on above: Performed By: #### I NSULIN #### [facility] [address] [place] [address] Dr. Braulio Fritz Sodium [Moles/Vol] 144 mmol/L Normal 136-145 [facility] Comment on above: Performed By: #### I NSULIN #### [facility] [address] [place] [address] Dr. Braulio Fritz Urea nitrogen [Mass/Vol] 24.0 mg/dL Critically high 7.0-18.0 [facility] Comment on above: Performed By: #### I NSULIN #### [facility] [address] [place] [address] Dr. Braulio Fritz Urea nitrogen/Creatinine [Mass ratio] 17.0 mg/mg Normal [facility] Comment on above: Performed By: #### I NSULIN #### [facility] [address] [place] [address] Dr. Braulio Fritz SED RATE WESTERGRENon 2022 SED RATE 19 mm/hr Normal <=20 [facility] Comment on above: Performed By: #### I NSULIN #### [facility] [address] [place] [address] Dr. Braulio Fritz TSHon 01-27-2023 TSH 0.882 uIU/mL Normal 0.358-3.74 0 [facility] Comment on above: Performed By: #### I NSULIN #### [facility] [address] [place] [address] Dr. Braulio Fritz URIC ACID SERUMon 01-27-2023 Urate [Mass/Vol] 7.3 mg/dL Critically high 3.5-7.2 [facility] Comment on above: Performed By: #### I NSULIN #### [facility] [address] [place] [address] Dr. Braulio Fritz VITAMIN D 25 OHon 01-27-2023 VIT D 25-OH 44.5 ng/mL Normal [facility] Comment on above: Performed By: #### P SASC, VITAD #### [facility] [address] [place] [address] Dr. Braulio Fritz VIT D RANGES SEE BELOW Normal [facility] Comment on above: Result Comment: <20 ng/mL Vit D deficient 20 - <30 ng/mL Vit D insufficient 30 - 100 ng/mL Vit D sufficient >100 ng/mL Potential Toxicity Performed By: #### P SASC, VITAD #### [facility] [address] [place] [address] Dr. Braulio Fritz T4 [facility] 04-16-20[facility] T4 [Mass/Vol] 6.6 ug/dL Normal 4.5-12.0 [facility] Comment on above: Performed By: #### I NSULIN #### [facility] [address] [place] [address] Dr. Braulio Fritz NM STRESS/REST MULTIon 04-15 NM STRESS/REST MULTI Patient: JOSY CORTÉS Exam Date: 04/15/2022 : 1950 Gender:M Ordering : DR TESS FUENTES . Admission #: [id number] Family : Order #: [id number] CLICK HERE TO VIEW EXAM RADIOLOGY REPORT [...] Stahl M.D. on 04/16/2022 at 13:16 Normal [facility] ECHOCARDIO M/2D COMPLETEon 0 04-13-2022 ECHOCARDIO M/2D COMPLETE Patient: LÓPEZ CORTÉS Exam Date: 04/13/2022 : 1950 Gender:M Ordering : DR TESS FUENTES . Admission #: [id number] Family : Order #: [id number] CLICK HERE TO VIEW EXAM ECHOCARDIOGRAM REPORT [...] Area(A4C): 20.60 cm2 Left Atrium Systolic Volume(A2C): 52870 mm3 Left Atrium Systolic Volume(A4C): 25156 mm3 Mitral Valve MV E to A [...] on 04/13/2022 at 11:33 Approved by: Gwen Sheriadn M.D. on 04/13/2022 at 11:36 Normal [facility] OCC BLD IMMUNO SCREENon 03-22 OCCULT BLOOD Negative Normal NEGATIVE [facility] Comment on above: Performed By: #### O BSCRN #### [facility] [address] [place] [address] Dr. Braulio Fritz INSULINon 04-12-2022 Insulin 18.7 uIU/mL Normal 2.6-24.9 [facility] Comment on above: Performed By: #### I NSULIN #### [facility] [address] [place] [address] Dr. Braulio Fritz BNPon 04-10-2022 Natriuretic peptide B (Bld) [Mass/Vol] 672.0 pg/mL Normal <=900.0 [facility] Comment on above: Performed By: #### A 1C #### [facility] [address] [place] [address] Dr. Braulio Fritz CBC AUTO DIFFon 04-10-2022 BASO # 0.1 103/ul Normal 0.0-0.1 [facility] Comment on above: Performed By: #### I NSULIN #### [facility] [address] [place] [address] Dr. Braulio Fritz Basophils/100 WBC (Bld) 0.8 % Normal 0.2-2.0 [facility] Comment on above: Performed By: #### I NSULIN #### [facility] [address] [place] [address] Dr. Braulio Fritz EO # 0.3 103/ul Normal 0.0-0.7 [facility] Comment on above: Performed By: #### I NSULIN #### [facility] [address] [place] [address] Dr. Braulio Fritz Eosinophils/100 WBC (Bld) 4.0 % Normal 0.9-7.0 [facility] Comment on above: Performed By: #### I NSULIN #### [facility] [address] [place] [address] Dr. Braulio Fritz Erythrocyte distribution width (RBC) [Ratio] 13.7 % Normal 11.0-15.0 [facility] Comment on above: Performed By: #### I NSULIN #### [facility] [address] [place] [address] Dr. Braulio Fritz Hematocrit (Bld) [Volume fraction] 47.7 % Normal 42.0-54.0 [facility] Comment on above: Performed By: #### I NSULIN #### [facility] [address] [place] [address] Dr. Braulio Fritz Hemoglobin (Bld) [Mass/Vol] 15.9 g/dL Normal 14.0-18.0 [facility] Comment on above: Performed By: #### I NSULIN #### [facility] [address] [place] [address] Dr. Braulio Fritz IG # 0.02 10e3/ul Normal 0.00-0.03 [facility] Comment on above: Performed By: #### I NSULIN #### [facility] [address] [place] [address] Dr. Braulio Fritz IG % 0.3 % Normal 0.0-0.5 [facility] Comment on above: Performed By: #### I NSULIN #### [facility] [address] [place] [address] Dr. Braulio Fritz LYMPH # 1.6 103/ul Normal 1.2-3.8 [facility] Comment on above: Performed By: #### I NSULIN #### [facility] [address] [place] [address] Dr. Braulio Fritz Lymphocytes/100 WBC (Bld) 24.6 % Normal 20.5-60.0 [facility] Comment on above: Performed By: #### I NSULIN #### [facility] [address] [place] [address] Dr. Braulio Fritz MANUAL DIFF REQ NO Normal [facility] Comment on above: Performed By: #### I NSULIN #### [facility] [address] [place] [address] Dr. Braulio Fritz MCH (RBC) [Entitic mass] 31.6 pg Normal 25.9-34.0 [facility] Comment on above: Performed By: #### I NSULIN #### [facility] [address] [place] [address] Dr. Braulio Fritz MCHC (RBC) [Mass/Vol] 33.3 g/dL Normal 29.9-35.2 [facility] Comment on above: Performed By: #### I NSULIN #### [facility] [address] [place] [address] Dr. Braulio Fritz MCV (RBC) [Entitic vol] 94.8 fL Critically high 80.0-94.0 [facility] Comment on above: Performed By: #### I NSULIN #### [facility] [address] [place] [address] Dr. Braulio Fritz MONO # 0.7 103/ul Normal 0.3-0.8 [facility] Comment on above: Performed By: #### I NSULIN #### [facility] [address] [place] [address] Dr. Braulio Fritz Monocytes/100 WBC (Bld) 11.2 % Normal 1.7-12.0 [facility] Comment on above: Performed By: #### I NSULIN #### [facility] [address] [place] [address] Dr. Braulio Fritz NEUT # 3.8 103/ul Normal 1.4-6.5 [facility] Comment on above: Performed By: #### I NSULIN #### [facility] [address] [place] [address] Dr. Braulio Fritz Neutrophils/100 WBC (Bld) 59.1 % Normal 43.0-75.0 The [facility] [facility] Comment on above: Performed By: #### I NSULIN #### [facility] [address] [place] [address] Dr. Braulio Fritz Platelet mean volume (Bld) [Entitic vol] 10.0 fL Normal 9.5-13.5 The [facility] Comment on above: Performed By: #### I NSULIN #### [facility] [address] [address] [address] Braulio Fritz PLT 210 103/ul Normal 150-450 [facility] Comment on above: Performed By: #### I NSULIN #### [facility] [address] [place] [address] Dr. Braulio Fritz RBC 5.03 106/ul Normal 4.70-6.10 [facility] Comment on above: Performed By: #### I NSULIN #### [facility] [address] [place] [address] Dr. Braulio Fritz WBC 6.5 103/ul Normal 4.0-11.0 [facility] Comment on above: Performed By: #### I NSULIN #### [facility] [address] [place] [address] Dr. Braulio Fritz FREE THYROXINE INDEX T7on FTI 2.64 Normal 1.30-4.50 [facility] Comment on above: Performed By: #### A 1C #### [facility] [address] [place] [address] Dr. Braulio Fritz T3U 40.0 % Normal 33.0-40.0 [facility] Comment on above: Performed By: #### A 1C #### [facility] [address] [place] [address] Dr. Braulio Fritz T4 [Mass/Vol] 6.60 ug/dL Normal 4.50-12.10 [facility] Comment on above: Performed By: #### A 1C #### [facility] [address] [place] [address] Dr. Braulio Fritz GLYCOHEMOGLOBIN A1Con 2021 ADA RECOMMENDATION SEE BELOW Normal [facility] Comment on above: Result Comment: ADA RECOMMENDED LIMIT 4.0 - 6.0 ADA THERAPEUTIC TARGET < 7.0 ACTION SUGGESTED > 7.0 Performed By: #### A 1C #### [facility] [address] [place] [address] Dr. Braulio Fritz Glucose [Mass/Vol] 114 mg/dL Normal [facility] Comment on above: Performed By: #### A 1C #### [facility] [address] [place] [address] Dr. Braulio Fritz HbA1c (Bld) [Mass fraction] 5.6 % Normal 4.5-6.2 [facility] Comment on above: Performed By: #### A 1C #### [facility] [address] [place] [address] Dr. Braulio Fritz IRONon 04-10-2022 Iron [Mass/Vol] 105.0 ug/dL Normal 65.0-175.0 [facility] Comment on above: Performed By: #### B 12FOL, VITAD, PSASC, IRON #### [facility] [address] [place] [address] Dr. Braulio Fritz LIPID PROFILEon 04-10-2022 CHOL-HDL RATIO NORM SEE BELOW Normal [facility] Comment on above: Result Comment: 3.3 - 4.4 LOW RISK 4.4 - 7.1 AVERAGE RISK 7.1 - 11.0 MODERATE RISK >11.0 HIGH RISK Performed By: #### A 1C #### [facility] [address] [place] [address] Dr. Braulio Fritz Cholesterol [Mass/Vol] 132 mg/dL Normal <=200 [facility] Comment on above: Performed By: #### A 1C #### [facility] [address] [place] [address] Dr. Braulio Fritz Cholesterol in HDL [Mass/Vol] 38 mg/dL Critically low 40-60 [facility] Comment on above: Performed By: #### A 1C #### [facility] [address] [place] [address] Dr. Braulio Fritz Cholesterol in LDL [Mass/Vol] 71.2 mg/dL Normal [facility] Comment on above: Performed By: #### A 1C #### [facility] [address] [place] [address] Dr. Braulio Fritz Cholesterol.total/Chol esterol in HDL [Mass ratio] 3.5 {ratio} Normal [facility] Comment on above: Performed By: #### A 1C #### [facility] [address] [address] [address] Braulio Fritz HDL NORMAL > or = 60 mg/dl - LO W CARDIOVASCULAR RISK <40 mg/dl - HIGH CARDIOVASCULAR RISK Normal [facility] Comment on above: Performed By: #### A 1C #### [facility] [address] [place] [address] Dr. Braulio Fritz LDL CALC NORMAL SEE BELOW Normal [facility] Comment on above: Result Comment: <100 mg/dl OPTIMAL 100 - 129 mg/dl NEAR OR ABOVE OPTIMAL 130 - 159 mg/dl BORDERLINE HIGH 160 - 189 mg/dl HIGH >190 mg/dl VERY HIGH Performed By: #### A 1C #### [facility] [address] [address] [address] Braulio Fritz Triglyceride [Mass/Vol] 114 mg/dL Normal <=150 [facility] Comment on above: Performed By: #### A 1C #### [facility] [address] [place] [address] Dr. Braulio Fritz VLDL CALC 22.8 mg/dL Normal [facility] Comment on above: Performed By: #### A 1C #### [facility] [address] [place] [address] Dr. Braulio Fritz PROF 14(COMP METB)on 022 Albumin [Mass/Vol] 3.5 g/dL Normal 3.4-5.0 [facility] Comment on above: Performed By: #### A 1C #### [facility] [address] [place] [address] Dr. Braulio Fritz Albumin/Globulin [Mass ratio] 1.0 {ratio} Normal The [facility] Comment on above: Performed By: #### A 1C #### [facility] [address] [place] [address] Dr. Braulio Fritz ALP [Catalytic activity/Vol] 115 U/L Normal 46-116 [facility] Comment on above: Performed By: #### A 1C #### [facility] [address] [place] [address] Dr. Braulio Fritz ALT [Catalytic activity/Vol] 29 U/L Normal 16-63 The [facility] Comment on above: Performed By: #### A 1C #### [facility] [address] [address] [address] Braulio Fritz Anion gap [Moles/Vol] 10.9 mmol/L Normal Th e [facility] Comment on above: Performed By: #### A 1C #### [facility] [address] [address] [address] Braulio Fritz AST [Catalytic activity/Vol] 23 U/L Normal 15-37 The [facility] Comment on above: Performed By: #### A 1C #### [facility] [address] [address] [address] Braulio Fritz Bilirubin [Mass/Vol] 1.3 mg/dL Critically high 0.2-1.0 [facility] Comment on above: Performed By: #### A 1C #### [facility] [address] [place] [address] Dr. Braulio Fritz Calcium [Mass/Vol] 8.8 mg/dL Normal 8.5-10.1 [facility] Comment on above: Performed By: #### A 1C #### [facility] [address] [place] [address] Dr. Braulio Fritz Chloride [Moles/Vol] 106 mmol/L Normal 98-107 The [facility] Comment on above: Performed By: #### A 1C #### [facility] [address] [place] [address] Dr. Braulio Fritz CO2 [Moles/Vol] 27.5 mmol/L Normal 21.0-32.0 The [facility] Comment on above: Performed By: #### A 1C #### [facility] [address] [place] [address] Dr. Braulio Fritz Creatinine [Mass/Vol] 1.68 mg/dL Critically high 0.70-1.30 The [facility] Comment on above: Performed By: #### A 1C #### [facility] [address] [place] [address] Dr. Braulio Fritz EGFR-AF BRITISH 49 mL/min/1.73m2 Critically low >=60 The [facility] Comment on above: Performed By: #### A 1C #### [facility] [address] [address] [address] Braulio Fritz EGFR-NON AF BRITISH 40 mL/min/1.73m2 Critically low >=60 [facility] Comment on above: Performed By: #### A 1C #### [facility] [address] [address] [address] Braulio Fritz Globulin (S) [Mass/Vol] 3.6 g/dL Normal [facility] Comment on above: Performed By: #### A 1C #### [facility] [address] [address] [address] Braulio Fritz Glucose [Mass/Vol] 109 mg/dL Critically high 74-106 [facility] Comment on above: Performed By: #### A 1C #### [facility] [address] [place] [address] Dr. Braulio Fritz Potassium [Moles/Vol] 4.4 mmol/L Normal 3.5-5.1 [facility] Comment on above: Performed By: #### A 1C #### [facility] [address] [address] [address] Braulio Fritz Protein [Mass/Vol] 7.1 g/dL Normal 6.4-8.2 [facility] Comment on above: Performed By: #### A 1C #### [facility] [address] [place] [address] Dr. Braulio Fritz Sodium [Moles/Vol] 140 mmol/L Normal 136-145 [facility] Comment on above: Performed By: #### A 1C #### [facility] [address] [address] [address] Braulio Fritz Urea nitrogen [Mass/Vol] 24.0 mg/dL Critically high 7.0-18.0 [facility] Comment on above: Performed By: #### A 1C #### [facility] [address] [address] [address] Braulio Fritz Urea nitrogen/Creatinine [Mass ratio] 14.3 mg/mg Normal [facility] Comment on above: Performed By: #### A 1C #### [facility] [address] [address] [address] Braulio Fritz TSHon 04-10-2022 TSH 0.740 uIU/mL Normal 0.358-3.74 0 [facility] Comment on above: Performed By: #### A 1C #### [facility] [address] [place] [address] Dr. Braulio Fritz TSH RANGE SEE BELOW Normal The [facility] Comment on above: Result Comment: <0.3 4 UIU/ml HYPERTHYROID 0.34-5.60 UIU/ml EUTHYROID >5.60 UIU/ml HYPOTHYROID Performed By: #### A 1C #### [facility] [address] [place] [address] Dr. Braulio Fritz VIT B12 AND FOLATEon 022 Cobalamin (Vitamin B12) [Mass/Vol] 547.0 pg/mL Normal 193.0-986. 0 [facility] Comment on above: Performed By: #### B 12FOL, VITAD, PSASC, IRON #### [facility] [address] [place] [address] Dr. Braulio Fritz FOLATE 17.80 ng/mL Normal 8.60-58.90 [facility] Comment on above: Performed By: #### B 12FOL, VITAD, PSASC, IRON #### [facility] [address] [place] [address] Dr. Braulio Fritz VITAMIN D 25 OHon 04-10-2022 VIT D 25-OH 50.4 ng/mL Normal The [facility] Comment on above: Performed By: #### B 12FOL, VITAD, PSASC, IRON #### [facility] [address] [place] [address] Dr. Braulio Fritz VIT D RANGES SEE BELOW Normal The [facility] Comment on above: Result Comment: <20 ng/mL Vit D deficient 20 - <30 ng/mL Vit D insufficient 30 - 100 ng/mL Vit D sufficient >100 ng/mL Potential Toxicity Performed By: #### B 12FOL, VITAD, PSASC, IRON #### [facility] [address] [place] [address] Dr. Braulio Fritz XR CHEST 2 Von [...] by: RJ LEON Date: 2022-04-09 12:41 Normal [facility] SMALL JOINT/BURSA INJECTION AND/OR ASPIRATION: L [...] fashion. The patient was prepped with alcohol. [facility] C REACTIVE PROTEINon 022 CRP [Mass/Vol] 11.2 mg/L High 0-10.0 [facility] Comment on above: Performed By: #### C REACT, ESR #### Testing performed at [address] [address] ESRon 11-27-2021 ESR (Bld) [Velocity] 27 mm/h High 0-20 [facility] Comment on above: Performed By: #### C REACT, ESR #### Testing performed at [address] [address] C REACTIVE PROTEINon 021 CRP [Mass/Vol] 6.9 mg/L 0 - 10.0 MG/L [facility] SEDIMENTATION RATE, AUTOMATE Don 10-29-2021 ESR (Bld) [Velocity] 33 mm/h High [facility] Interpretation and review of laboratory results Abnormal [facility] CBC, EDIF, PLATELETon 2019 ABSOLUTE BASOPHIL COUNT 0.1 10*3/uL 0 - 0.2 10*3/uL [facility] Basophils/100 WBC (Bld) 0.5 % 0 - 2 % [facility] Differential cell count method Nom (Bld) AUTO DIFF % [facility] Eosinophils (Bld) [#/Vol] 0.00 10*3/uL 0 - 0.7 10*3/uL [facility] Eosinophils/100 WBC (Bld) 0.1 % 0 - 11 % [facility] Erythrocyte distribution width (RBC) [Ratio] 16.4 % High 11.5 - 14.5 % [facility] Hematocrit (Bld) [Volume fraction] 34.0 % Low 42 - 52 % [facility] Hemoglobin (Bld) [Mass/Vol] 10.9 g/dL Low [facility] Interpretation and review of laboratory results Abnormal [facility] Lymphocytes (Bld) [#/Vol] 0.90 10*3/uL Low 1.2 - 3.4 10*3/uL [facility] Lymphocytes/100 WBC (Bld) 6.9 % Low 20 - 55 % [facility] MCH (RBC) [Entitic mass] 27.8 pg 26 - 35 PG [facility] MCHC (RBC) [Mass/Vol] 32.1 g/dL [facility] MCV (RBC) [Entitic vol] 86.4 fL [facility] Monocytes (Bld) [#/Vol] 0.9 10*3/uL High 0 - 0.7 10*3/uL [facility] Monocytes/100 WBC (Bld) 7.1 % 0 - 10 % [facility] Neutrophils (Bld) [#/Vol] 11.2 10*3/uL High 1.4 - 6.5 10*3/uL [facility] Neutrophils/100 WBC (Bld) 85.4 % High 37 - 75 % [facility] Platelet mean volume (Bld) [Entitic vol] 8.1 fL [facility] Platelets (Bld) [#/Vol] 247 10*3/uL 130 - 400 10*3/uL [facility] RBC (Bld) [#/Vol] 3.93 10*6/uL Low 4 - 6.1 10*6/uL [facility] WBC (Bld) [#/Vol] 13.1 10*3/uL High 3.6 - 11 10*3/uL [facility] REPEAT ABO/RH (D) TYPINGon 1 12-29-2019 ABO and Rh group Nom (Bld ) Positive [facility] XR KNEE LEFT 2 VIEWSon 10-28 IMPRESSION: Status p ost total knee arthroplasty revision with expected postoperative changes. [facility] EXAM: XR KNEE LEFT 2 VIEWS HISTORY: [...] the soft tissues with overlying skin elizabeth. [facility] User, Interfaces - 10/28/2020 3:18 PM EST [...] knee arthroplasty revision with expected postoperative changes. [facility] NUC WBC STUDYon 09-24-2020 IMPRESSION: Hyperemi a to the left knee with no definite evidence for infected prosthesis. [employer] [facility] NUCLEAR MEDICINE TOT AL BODY BONE [...] blood cell uptake in the right knee. [facility]inny User, Interfaces - 09/24/2020 5:04 PM EST [...] with no definite evidence for infected prosthesis. [facility] NUC 3 PHASE LIMITED BONE SCA Non 09-19-2020 IMPRESSION: Findings concerning for loosening or infection in the medial tibial plateau portion of the left knee prosthesis. No evidence of loosening or infection in the right knee. [facility] NUCLEAR MEDICINE TRIPLE-PHASE BONE SCAN HISTORY: Left [...] or delayed uptake in the right knee. [facility]inny User, Interfaces - 09/19/2020 2:47 PM EDT [...] loosening or infection in the right knee. [facility] LARGE JOINT/BURSA INJECTION AND/OR ASPIRATION: L kneeon [...] complications The patient was prepped with Chloraprep. [facility] CNOVon 02-23-2019 CNOV Office Visit (FARSHAD ) LÓPEZ CORTÉS ([id number]) 1950 M Date Time Provider Department 02/23/19 [...] local physician and understands to return to [facility] if there is evidence of functional decline. [...] today's CT scan. Referring Provider: GADIEL RHODES [[id number]] Allergies As of Date: 02/23/2019 Noted Allergy [...] by GADIEL RHODES MD on 02/24/[address] [facility] [address] CHEST WO IVCONon 02-24-[address] CHEST WO IVCON * * *Final Report* * * DATE OF EXAM: Feb 23 2019 12:40PM [facility] 0541 - CT CHEST [...] lesion. Upper abdomen: Unchanged. IMPRESSION: STABLE CT. Car Seat Coverer: ERICA Transcribe Date/Time: Feb 23 2019 4:08P Dictated by : LAURA DAVIDSON MD This examination was interpreted and the report reviewed and electronically signed by: LAURA DAVIDSON MD on Feb 23 2019 4:30PM EST [id number] Normal [facility] PROGRESSon 02-23-2019 Protein mass conc HNO ID: [id number] Author: Gadiel Rhodes Service: ? Author Type: [...] local physician and understands to return to [facility] if there is evidence of functional decline. No need for additional CT imaging at this time. 2. Lung nodules. 10 mm subpleural nodule incidentally noted on prior chest CT. Has smoking history but discontinued 35 years ago. Nodule now docimented to be stable since 10/2017. No need for additional surveillance. I will see Mr. Cortés back in 6 months. Normal [facility] Protein mass conc HNO ID: [id number] Author: ALEX Kat (Ct) Service: Radiology Author Type: Clinical Power System Dispatcher Type: Progress Notes Filed: 02/23/2019 12:42 PM [...] Kat February 23, 2019 12:42 PM Normal [facility] CNOVon 10-16-2018 CNOV Office Visit (FARSHAD ) LÓPEZ CORTÉS ([id number]) 1950 M Date Time Provider Department 10/16/18 [...] Diagnosis:Lung nodules [R91.8] Order(s):CT CHEST WO IVCON [[id number]] Order #: [id number] FUTURE Prescriptions as of 10/16/2018 Sig: PANTOPRAZOLE [...] by GADIEL RHODES MD on 10/22/18 Normal [facility] PROGRESSon 10-16-2018 Protein mass conc HNO ID: [id number] Author: Gadiel Rhodes Service: (none) Author Type: [...] Mr. Cortés back in 6 months. 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 There are no occupational exposures. There [...] No history of dysuria, frequency or incontinence. SLEEP MEDICINE PHYSICIAN: NA MUSCULOSKELETAL: Negative for joint pain or [...] MD 04/16/2018 10:48 PM Signed . [facility] Note Mr. 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 Mold: No significant exposure. [...] personally reviewed by me Data Reviewed from [facility] (in addition to that noted in HPI, [...] Pre ? ? % ? Date ? 309653 ? Time ?02:22PM ? Height ?169.1 ? [...] management of GERD/heartburn ? Will be seeing waredresser (consider nasal probe study/pH study ? Recommend [...] Lisa Hazel MD Internal Medicine PGY-III Pager [phone] Attending Addendum: I have personally interviewed and [...] Rhodes M.D. Chair, Department of Pulmonary Medicine [facility] Referring Provider: SCOTT PEREZ [[id number]] Allergies As of Date: 03/20/2018 Noted Allergy Reaction SULFA (SULFONAMIDE ANTIBIOTICS) 03/20/2018 17 - Unknown Comments: Reaction as a kid - unsure Date Reviewed: 03/20/2018 Reviewed by: Jemal (Rn) AONOP Wilks - Fully Assessed Reason for Visit: Consult [502] Primary Visit Diagnosis:ILD (interstitial lung disease) (HCC) [J84.9] Other Visit Diagnosis:Multiple lung nodules [R91.8] Order(s):SPIROMETRY BASELINE ONLY [[id number]] Order #: [id number] FUTURE LUNG DIFFUSION CAPACITY (DLCO) [[id number]] Order #: [id number] FUTURE Prescriptions as of 03/20/2018 Sig: PANTOPRAZOLE [...] March 20, 2018 Scott Perez MD (via [employer]) Re: López Allenney ( 1950) Dear Dr. 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 There are no occupational exposures. There [...] No history of dysuria, frequency or incontinence. SLEEP MEDICINE PHYSICIAN: NA MUSCULOSKELETAL: Negative for joint pain or [...] M.D. Chair, Department of Pulmonary Medicine [facility] Cc: Dr. Tess Fuentes [address] [place] [address] Dr. Francis Giron [address] [place] [address]. [place] [address] Mr. López Cortés [address] [facility] [address] [place] [address] Encounter Status:Closed by GADIEL RHODES MD on 04/16/18 Normal [facility] PROGRESSon 03-20-2018 Protein mass conc HNO ID: [id number] Author: Gadiel Rhodes Service: (none) Author Type: Physician Type: Progress Notes Filed: 04/16/2018 10:48 PM Note Text: . [facility] Note Mr. 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 Mold: No significant exposure. [...] personally reviewed by me Data Reviewed from [facility] (in addition to that noted in HPI, [...] Pre ? ? % ? Date ? [id number] ? Time ?02:22PM ? Height ?169.1 ? [...] management of GERD/heartburn ? Will be seeing waredresser (consider nasal probe study/pH study ? Recommend [...] Lisa Hazel MD Internal Medicine PGY-III Pager [phone] Attending Addendum: I have personally interviewed and [...] Rhodes M.D. 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 There are no occupational exposures. There [...] No history of dysuria, frequency or incontinence. SLEEP MEDICINE PHYSICIAN: NA MUSCULOSKELETAL: Negative for joint pain or [...] Mr. Cortés back in 6 months[address] Normal [facility] CT ABDOMEN PELVIS W IV CONTR [...] by:KENDELL Murrelligned by:Christiano Hansen MD10/25/17Final result Normal [facility] CT CHEST W CONTRASTon 2016 [...] by:KENDELL Murrelligned by:Christiano Hansen MD10/25/17Final result Normal [facility] CBC with Diffon 10-25-2017 Abs. Basophil 0.00 k/uL Normal 0.0-0.2 [facility] Comment on above: Performed By: #### C DP, CP ####[address] [address] Abs.Neutrophil (Seg) 16.04 k/uL High 1.3-9.1 [facility] Comment on above: Performed By: #### C DP, CP ####[address] [address] Basophils/100 WBC Auto (Bld) 0 % Normal 0-2 [facility] Comment on above: Performed By: #### C DP, CP ####[address] [place] [address] Blood morphology Normal Normal [facility] Comment on above: Result Comment: Perf ormed at [facility] [address] [place] [address] Performed By: #### C DP, CP ####[address] [address] Eosinophils 0.00 10*3/uL Normal 0.0-0.4 [facility] Comment on above: Performed By: #### C DP, CP ####[address] [address] Eosinophils/100 leukocytes 0 % Normal 0-4 [facility] Comment on above: Performed By: #### C DP, CP ####[facility] [facility] [place] [address] Lymphocytes 0.96 10*3/uL Low 1.0-4.8 [facility] Comment on above: Performed By: #### C DP, CP ####[facility] [facility] [place] [address] Lymphocytes/100 leukocytes 5 % Low 24-44 [facility] Comment on above: Performed By: #### C DP, CP ####[facility] [facility] [place] [address] Monocytes 2.10 10*3/uL High 0.1-1.3 [facility] Comment on above: Performed By: #### C DP, CP ####[facility] [facility] [place] [address] Monocytes/100 leukocytes 11 % High 1-7 [facility] Comment on above: Performed By: #### C DP, CP ####[facility] [place] [address].[place] [address] Neutrophil (Seg) 84 % High 36-66 [facility] Comment on above: Performed By: #### C DP, CP ####[facility] [facility] [place] [address] Erythrocyte distribution width Auto Ratio (RBC) 14.1 % Normal 11.5-14.9 [facility] Comment on above: Performed By: #### C DP, CP ####[facility] [facility] [place] [address] Erythrocytes (RBC) 5.37 10*6/uL Normal 4.5-5.9 [facility] Comment on above: Performed By: #### C DP, CP ####[facility] [place] [address] Hematocrit (HCT) 50.7 % Normal 41-53 [facility] Comment on above: Performed By: #### C DP, CP ####[facility] [place] [address] Hemoglobin mass conc (Bld) 16.8 g/dL Normal 13.5-17.5 [facility] Comment on above: Performed By: #### C DP, CP ####[facility] [place] [address] MCH 31.2 pg Normal 26-34 [facility] Comment on above: Performed By: #### C DP, CP ####[place] [address] [place] [address] MCHC mass conc (RBC) 33.1 g/dL Normal 31-37 [facility] Comment on above: Performed By: #### C DP, CP ####[facility] [place] [address] MCV 94.4 fL Normal 80-100 [facility] Comment on above: Performed By: #### C DP, CP ####[facility] [place] [address] Platelet mean volume (PMV) 9.0 fL Normal 6.0-12.0 [facility] Comment on above: Performed By: #### C DP, CP ####[facility] [place] [address] Platelets 227 10*3/uL Normal 150-450 [facility] Comment on above: Performed By: #### C DP, CP ####[facility] [place] [address] WBC (Leukocytes) 19.1 10*3/uL High 3.5-11.0 [facility] Comment on above: Performed By: #### C DP, CP ####[facility] [facility] [place] [address] Auto Diff Performed NOT REPORTED Normal [facility] Comment on above: Performed By: #### C DP, CP ####[facility] [place] [address] Erythrocyte morphology NOT REPORTED Normal [facility] Comment on above: Performed By: #### C DP, CP ####[facility] [place] [address] Granulocytes/100 WBC (Bld) NOT REPORTED Normal 0.00-0.30 [facility] Comment on above: Performed By: #### C DP, CP ####[facility] [facility] [place] [address] Immature granulocytes #/vol (Bld) NOT REPORTED Normal 0 [facility] Comment on above: Performed By: #### C DP, CP ####[facility] [facility] [place] [address] Platelets NOT REPORTED Normal [facility] Comment on above: Performed By: #### C DP, CP ####[facility] [facility] [place] [address] WBC Morphology NOT REPORTED Normal [facility] Comment on above: Performed By: #### C DP, CP ####[address] [address] Comp Metabolic Profon 2016 (cont.) Normal [facility] Comment on above: Result Comment: Aver age GFR for 60-69 years old: 85 mL/min/1.73sq mChronic Kidney Disease: <60 mL/min/1.73sq mKidney failure: <15 mL/min/1.73sq meGFR calculated using average adult body mass. Additional eGFR calculator available at:http://[email or web address].Skytide/multiple_crcl_2012.htmPerformed at [facility] [address] [place] [address] Performed By: #### C DP, CP ####[facility] [facility] [place] [address] Alanine aminotransferase (ALT) 35 U/L Normal 5-41 [facility] Comment on above: Performed By: #### C DP, CP ####[facility] [place] [address] Albumin 4.4 g/dL Normal 3.5-5.2 [facility] Comment on above: Performed By: #### C DP, CP ####[facility] [place] [address] Alkaline Phos 128 U/L Normal 40-129 [facility] Comment on above: Performed By: #### C DP, CP ####[facility] [place] [address] Anion gap 14 mmol/L Normal 9-17 [facility] Comment on above: Performed By: #### C DP, CP ####[facility] [place] [address] Aspartate aminotransferase (AST) 50 U/L High <40 [facility] Comment on above: Performed By: #### C DP, CP ####[facility] [place] [address] Bilirubin Ql (U) 1.12 mg/dL Normal 0.3-1.2 [facility] Comment on above: Performed By: #### C DP, CP ####[facility] [place] [address] Calcium 9.2 mg/dL Normal 8.6-10.4 [facility] Comment on above: Performed By: #### C DP, CP ####[facility] [place] [address] Chloride 107 mmol/L Normal 98-107 [facility] Comment on above: Performed By: #### C DP, CP ####[address] [address] CO2 23 mmol/L Normal 20-31 [facility] Comment on above: Performed By: #### C DP, CP ####[facility] [place] [address] Creatinine 1.30 mg/dL High 0.70-1.20 [facility] Comment on above: Performed By: #### C DP, CP ####[address] [address] eGFR (non-black) 55 mL/min/{1.73_m2} Low >60 [facility] Comment on above: Performed By: #### C DP, CP ####[address] [address] eGFR (non-black) mL/min/{1.73_m2} Normal >60 [facility] Comment on above: Performed By: #### C DP, CP ####[address] [address] Glucose mass conc 111 mg/dL High 70-99 [facility] Comment on above: Performed By: #### C DP, CP ####[address] [address] Potassium molar conc 4.3 mmol/L Normal 3.7-5.3 [facility] Comment on above: Performed By: #### C DP, CP ####[address] [facility] [place] [address] Protein 7.3 g/dL Normal 6.4-8.3 [facility] Comment on above: Performed By: #### C DP, CP ####[facility] [place] [address] Sodium 144 mmol/L Normal 135-144 [facility] Comment on above: Performed By: #### C DP, CP ####[facility] [place] [address] Urea nitrogen 24 mg/dL High 8-23 [facility] Comment on above: Performed By: #### C DP, CP ####[facility] [facility] [place] [address] Albumin/Globulin Ratio NOT REPORTED Normal 1.0-2.5 [facility] Comment on above: Performed By: #### C DP, CP ####[facility] [facility] [place] [address] BUN/CRE Ratio NOT REPORTED Normal 9-20 [facility] Comment on above: Performed By: #### C DP, CP ####[facility] [facility] [place] [address] Staging: NOT REPORTED Normal [facility] Comment on above: Performed By: #### C DP, CP ####[address] [place] [address] Vital Signs Date Time Vital Sign Value Performing Clinician Facility 05-09-2025 09:59-0400 Body height 172.7 cm [facility] 05-09-2025 09:59-0400 Body mass index (BMI) [Ratio] 33.75 kg/m2 [facility] 05-09-2025 09:59-0400 Body weight 100.7 kg [facility] 05-09-2025 09:59-0400 Diastolic blood pressure 82 mm[Hg] Sunita Ec[facility] 05-09-2025 09:59-0400 Heart rate 57 /min Sunita [facility] 05-09-2025 09:59-0400 Systolic blood pressure 124 mm[Hg] [facility] 05-02-2025 10:55-0400 Body height 172.7 cm Fidelina Jones MD Work Phone: [facility] 05-02-2025 10:55-0400 Body mass index (BMI) [Ratio] 34.21 kg/m2 Fidelina Jones MD Work Phone: [facility] 05-02-2025 10:55-0400 Body weight 102.06 kg Fidelina Jones MD Work Phone: [facility] 05-02-2025 10:55-0400 Diastolic blood pressure 68 mm[Hg] Fidelina Jones MD Work Phone: [facility] 05-02-2025 10:55-0400 Heart rate 72 /min Fidelina Jones MD Work Phone: [facility] 05-02-2025 10:55-0400 Systolic blood pressure 104 mm[Hg] Fidelina Jones MD Work Phone: [facility] 04-18-2025 09:09-0400 Diastolic blood pressure 82 mm[Hg] Tess Fuentes MD Work Phone: [facility] 04-18-2025 09:09-0400 Heart rate 60 /min Tess Fuentes MD Work Phone: [facility] 04-18-2025 09:09-0400 Systolic blood pressure 132 mm[Hg] Tess Fuentes MD Work Phone: [facility] 03-18-2025 09:28-0400 Body height 172.7 cm Adrien FLORES Work Phone: [facility] 03-18-2025 09:28-0400 Body mass index (BMI) [Ratio] 35.79 kg/m2 Adrien Foley CHIEF MEDICAL DIRECTOR-COLLEGE ARCHIVIST Work Phone: [facility] 03-18-2025 09:28-0400 Body weight 106.78 kg Adrien Foley CHIEF MEDICAL DIRECTOR-COLLEGE ARCHIVIST Work Phone: [facility] 03-18-2025 09:28-0400 Diastolic blood pressure 78 mm[Hg] Adrien Foley CHIEF MEDICAL DIRECTOR-COLLEGE ARCHIVIST Work Phone: [facility] 03-18-2025 09:28-0400 Heart rate 70 /min Adrien Foley CHIEF MEDICAL DIRECTOR-COLLEGE ARCHIVIST Work Phone: [facility] 03-18-2025 09:28-0400 Systolic blood pressure 120 mm[Hg] Adrien Foley CHIEF MEDICAL DIRECTOR-COLLEGE ARCHIVIST Work Phone: [facility] 08-14-2024 14:41-0400 Diastolic blood pressure 80 mm[Hg] Obey NILL [facility] 08-14-2024 14:41-0400 Heart rate 68 /min Obey NILL [facility] 08-14-2024 14:41-0400 Respiratory rate 16 /min Obey NILL [facility] 08-14-2024 14:41-0400 Systolic blood pressure 118 mm[Hg] Obey NILL [facility] 01-31-2024 08:42-0400 Blood Pressure Location Obey NILL [facility] [place] 01-31-2024 08:42-0400 Diastolic blood pressure 82 mm[Hg] Obey NILL [facility] [place] 01-31-2024 08:42-0400 Heart rate 83 /min Obey NILL [facility] [place] 01-31-2024 08:42-0400 Respiratory rate 16 /min Obey VALLESHarris [facility] [place] 01-31-2024 08:42-0400 Systolic blood pressure 120 mm[Hg] Obey ALAS [facility] [place] 11-23-2023 08:25-0500 Body height 172.7 cm Bhavana Addison CHIEF MEDICAL DIRECTOR-COLLEGE ARCHIVIST Work Phone: [facility] 11-23-2023 08:25-0500 Body mass index (BMI) [Ratio] 34.21 kg/m2 Bhavana Cyn CHIEF MEDICAL DIRECTOR-COLLEGE ARCHIVIST Work Phone: [facility] 11-23-2023 08:25-0500 Body weight 102.06 kg Bhavana Cyn CHIEF MEDICAL DIRECTOR-COLLEGE ARCHIVIST Work Phone: [facility] 05-16-2023 09:32-0400 Blood Pressure Location Darwin ISABEL [facility] 05-16-2023 09:32-0400 Diastolic blood pressure 75 mm[Hg] Darwin RICHMOND [facility] 05-16-2023 09:32-0400 Heart rate 75 /min Darwin RICHMOND [facility] 05-16-2023 09:32-0400 Respiratory rate 16 /min Darwin ISABEL [facility] 05-16-2023 09:32-0400 Systolic blood pressure 129 mm[Hg] Darwin RICHMOND [facility] 06-16-2022 10:13-0400 Body height 172.7 cm Barak Hebert MD Work Phone: [facility] 06-16-2022 10:13-0400 Body mass index (BMI) [Ratio] 35.28 kg/m2 Barak Hebert MD Work Phone: [facility] 06-16-2022 10:13-0400 Body weight 105.23 kg Barak Hebert MD Work Phone: [facility] 05-26-2022 07:57-0400 Body height 172.7 cm Gadiel Floyd MD Work Phone: [facility] 05-26-2022 07:57-0400 Body mass index (BMI) [Ratio] 35.28 kg/m2 Gadiel Floyd MD Work Phone: [facility] 05-26-2022 07:57-0400 Body temperature 97.7 [degF] Gadiel Floyd MD Work Phone: [facility] 05-26-2022 07:57-0400 Body weight 105.23 kg Gadiel Floyd MD Work Phone: [facility] 02-17-2022 12:58-0400 Body height 172.7 cm Gadiel Floyd MD Work Phone: [facility] 02-17-2022 12:58-0400 Body mass index (BMI) [Ratio] 36.81 kg/m2 Gadiel Floyd MD Work Phone: [facility] 02-17-2022 12:58-0400 Body temperature 98.2 [degF] Gadiel Floyd MD Work Phone: [facility] 02-17-2022 12:58-0400 Body weight 109.8 kg Gadiel Floyd MD Work Phone: [facility] 10-29-2021 11:09-0500 Body height 172.7 cm Bhavana Addison APRN-COLLEGE ARCHIVIST Work Phone: [facility] 10-29-2021 11:09-0500 Body mass index (BMI) [Ratio] 36.49 kg/m2 Bhavana Addison APRN-COLLEGE ARCHIVIST Work Phone: [facility] 10-29-2021 11:09-0500 Body temperature 97.2 [degF] Bhavana Addison CHIEF MEDICAL DIRECTOR-COLLEGE ARCHIVIST Work Phone: [facility] 10-29-2021 11:09-0500 Body weight 108.86 kg Bhavana Addison CHIEF MEDICAL DIRECTOR-COLLEGE ARCHIVIST Work Phone: [facility] 11-19-2020 11:08-0500 BMI (Body Mass Index) 34.21 kg/m2 [facility] 11-19-2020 11:08-0500 Body Temperature 97.59 [degF] [facility] 11-19-2020 11:08-0500 Body weight 102.06 kg [facility] 11-19-2020 11:08-0500 Height 172.7 cm [facility] 10-29-2020 15:11-0500 BP Diastolic 72 mm[Hg] [facility] 10-29-2020 15:11-0500 BP Systolic 148 mm[Hg] [facility] 10-29-2020 15:11-0500 Pulse (Heart Rate) 74 /min [facility] 10-29-2020 15:11-0500 Pulse Oximetry 100 % [facility] 10-29-2020 15:11-0500 Respiratory Rate 16 /min [facility] 10-29-2020 08:00-0500 Body Temperature 97.39 [degF] [facility] 10-28-2020 15:15-0500 BMI (Body Mass Index) 32.23 kg/m2 [facility] 10-28-2020 15:15-0500 Body weight 96.16 kg [facility] 10-28-2020 15:15-0500 Height 172.7 cm [facility] 09-11-2020 13:55-0400 BMI (Body Mass Index) 31.96 kg/m2 [facility] 09-11-2020 13:55-0400 Body Temperature 97.11 [degF] [facility] 09-11-2020 13:55-0400 Body weight 95.35 kg [facility] 09-11-2020 13:55-[address] [facility] Encounters Encounter Date Encounter Type Care Provider Facility Start: 05-09-2025 End: 05-09-2025 Professional / ancillary services management Sunita [place] [facility] Comment on above: Paroxysmal atrial fi brillation (Multi) Start: 05-09-2025 End: 05-09-2025 ambulatory [facility] Start: 05-07-2025 End: 05-07-2025 ambulatory Obey ALAS Facility:[facility] Start: 05-07-2025 End: 05-07-2025 Patient encounter procedure Obey ALAS [facility] [place] Start: 05-02-2025 End: 05-02-2025 Office outpatient visit 25 minutes Fidelina Jones MD Work Phone: [facility] Comment on above: Paroxysmal atrial fi brillation (Multi); High risk medication use; Encounter to discuss test results; Essential hypertension; Mixed hyperlipidemia; BMI 34.0-34.9,adult; Former smoker Start: 05-02-2025 End: 05-02-2025 ambulatory [facility] Start: 04-18-2025 Non-patient / Non-visit Bella [facility]entes MD [facility] Work Phone: Start: 04-18-2025 End: 04-18-2025 Patient encounter procedure Tess Fuentes MD Work Phone: [facility]Electrodiagnostic s Work Phone: Start: 04-18-2025 End: 04-18-2025 ambulatory Tess Fuentes MD Work Phone: [facility] Work Phone: Start: 03-26-2025 End: 03-26-2025 Patient encounter procedure Tess Fuentes MD Work Phone: [facility] [place] Work Phone: Start: 03-26-2025 End: 03-26-2025 ambulatory Tess Fuentes MD Work Phone: [facility] Work Phone: Start: 03-18-2025 End: 03-18-2025 Office consultation new/estab patient 60 min Adrien Ramirez Moxee CHIEF MEDICAL DIRECTOR-COLLEGE ARCHIVIST Work Phone: [facility] Comment on above: Dyspnea on exertion (Primary Dx); Palpitations; Abnormal EKG; Other fatigue; BMI 35.0-35.9,adult; Mixed hyperlipidemia; Essential hypertension Start: 03-18-2025 End: 03-18-[address] [facility] Start: 10-23-2024 End: 10-23-2024 ambulatory Obey ALAS Facility: [facility] Start: 10-23-2024 End: 10-23-2024 Patient encounter procedure Obey ALAS [facility] [place] Start: 09-18-2024 End: 09-18-2024 ambulatory Obey R NILL Facility: [facility] Start: 09-18-2024 End: 09-18-2024 Patient encounter procedure Obey R EVETTE [facility] Start: 09-14-2024 ambulatory Obey R NILHarris Facility : [facility] Start: 08-29-2024 End: 08-29-2024 ambulatory Obey R Nill [facility] Work Phone: Start: 08-29-2024 End: 08-29-2024 Departed Referred MD Obey Alas Work Phone: [facility] Start: 08-29-2024 End: 08-29-2024 ambulatory Obey R NILL Facility:CD:[id number] Start: 08-14-2024 End: 08-14-2024 ambulatory Obey R NILL Facility: [facility] Start: 08-14-2024 End: 08-14-2024 Patient encounter procedure Obey ALAS [facility] Start: 06-05-2024 End: 06-05-2024 ambulatory SOLOMON IGNACIO Not Available Start: 03-06-2024 End: 03-06-2024 Patient encounter procedure Obey ALAS [facility] [place] Start: 02-28-2024 End: 02-28-2024 ambulatory MD Obey Alas Work Phone: [facility] Work Phone: Start: 02-28-2024 End: 02-28-2024 Departed Referred MD Obey Alas Work Phone: [facility] [place] [facility] Start: 02-28-2024 End: 02-28-2024 Patient encounter procedure Obey ALAS [facility] Start: 01-31-2024 End: 01-31-2024 Patient encounter procedure Obey ALAS [facility] [place] Start: 11-23-2023 End: 11-23-2023 Office outpatient visit 15 minutes Bhavana FLORES Work Phone: [facility] Comment on above: Hx of total knee art hroplasty, left (Primary Dx) Start: 11-23-2023 End: 11-23-2023 Subsequent hospital visit by physician Bhavana FLORES Work Phone: [facility] Start: 05-16-2023 End: 05-16-2023 Patient encounter procedure Darwin RICHMOND [facility] Start: 01-27-2023 End: 01-28-[address] TESS FUENTES . Facility:[facility] Start: 01-12-2023 End: 01-12-2023 Patient encounter procedure Darwin RICHMOND 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 Facility:[facility] Start: 04-13-2022 End: 04-14-[address] TESS FUENTES . Facility:[facility] Start: 04-10-2022 End: 04-11-[address] TESS FUENTES . Facility:[facility] Start: 04-09-2022 End: 04-10-[address] TESS FUENTES . Facility:[facility] Start: 02-17-2022 ambulatory TESS FUENTES [facility] Start: 02-17-2022 End: 02-17-2022 Office outpatient new 30 minutes Gadiel Floyd MD Work Phone: [facility] Comment on above: Bilateral thumb pain (Primary Dx); Primary osteoarthritis of first carpometacarpal joint of left hand Start: 02-17-2022 End: 02-17-2022 Subsequent hospital visit by physician Gadiel Floyd MD Work Phone: [facility] Start: 12-17-2021 ambulatory BARAK HEBERT [facility] Start: 12-17-2021 End: 12-17-2021 Office outpatient visit 15 minutes Barak Hebert MD Work Phone: [facility] Comment on above: Bilateral thumb pain (Primary Dx); Left knee pain, unspecified chronicity Start: 11-27-2021 ambulatory BHAVANA CYN [facility] Start: 10-29-2021 End: 10-29-2021 Postop follow up visit related to original px Barak Hebert MD Work Phone: [facility] Comment on above: Hx of total knee art hroplasty, left (Primary Dx) Start: 10-29-2021 End: 10-29-2021 Subsequent hospital visit by physician Bhavana FLORES Work Phone: [facility] Start: 02-26-2021 End: 02-26-2021 Subsequent hospital visit by physician Barak Hebert Work Phone: [facility] Start: 11-19-2020 End: 11-19-2020 Postop follow up visit related to original px Kaila Richmond Work Phone: [facility] Comment on above: Hx of total knee art hroplasty, left (Primary Dx); Postoperative pain of knee Start: 11-19-2020 End: 11-19-2020 Subsequent hospital visit by physician Kaila Richmond Work Phone: [facility] Start: 10-28-2020 End: 10-29-2020 Evaluation and management of inpatient Barak Hebert Work Phone: [facility] Comment on above: Mechanical loosening of internal left knee prosthetic joint Start: 09-24-2020 End: 09-24-2020 Subsequent hospital visit by physician Barak Hebert Work Phone: [facility] Comment on above: Arrived Start: 09-23-2020 End: 09-23-2020 Subsequent hospital visit by physician Barak Hebert Work Phone: [facility] Comment on above: Arrived Start: 09-19-2020 End: 09-19-2020 Subsequent hospital visit by physician Barak Hebert Work Phone: [facility] Comment on above: Arrived Start: 09-11-2020 End: 09-11-2020 Subsequent hospital visit by physician Barak Hebert Work Phone: [facility] Start: 09-11-2020 End: 09-11-2020 Office outpatient new 45 minutes Barak Pradeep Work Phone: [facility] Comment on above: Left knee pain, unsp ecified chronicity (Primary Dx); Pain in prosthetic joint, initial encounter Start: 02-23-2019 End: 02-26-2019 Patient encounter procedure GADIEL RHODES [facility] Start: 10-16-2018 End: 10-23-2018 Patient encounter procedure GADIEL RHODES [facility] Start: 03-20-2018 End: 04-19-2018 Patient encounter procedure GADIEL RHODES [facility] Start: 11-23-2017 End: 11-24-2017 Ambulatory DEFAULT PHYSICIAN Facility:[facility] Start: 10-25-2017 End: 10-26-2017 Emergency department patient visit ROBERTO Garcia [facility] Procedures Date Procedure Procedure Detail Performing Clinician Start: 03-18-2025 Ecg routine ecg w/least 12 lds w/i&r Adrien Foley CHIEF MEDICAL DIRECTOR-COLLEGE ARCHIVIST Work Phone: Start: 08-29-2024 Excisional biopsy of basal cell carcinoma Obey ALAS Start: 02-28-2024 Excision of basal cell carcinoma Obey ALAS Start: 01-27-[address] TESS FUENTES . Comment on above: Performed By: #### PSASC, VITAD #### [facility] [address] [address] [address] Braulio Fritz Start: 04-10-[address] TESS FUENTES . Comment on above: Performed By: #### B12FOL, VITAD, PSASC, IRON #### [facility] [id number] Braulio Fritz Start: 02-17-2022 Arthrocentesis aspir&/inj small jt/bursa w/o us Irene Parker Start: 10-29-2020 Complete blood count with white cell differential, peter Addison Work Phone: Start: 10-28-2020 X-ray of left knee Bhavana Addison Work Phone: Start: 10-28-2020 End: 10-28-2020 Cul bact roberto aerobic isol xcpt ur blood/stool [employer] Work Phone: Start: 10-28-2020 End: 10-28-2020 Culture bacterial any source anaerobic iso&id [employer] Phone: Start: 10-28-2020 End: 10-28-2020 Fungus identified in Unspecified specimen by Culture [employer] Phone: Start: 10-28-2020 End: 10-28-2020 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 specific culture [employer] Phone: Start: 10-28-2020 Bacteria identified in Body fluid by Culture [employer] Phone: Start: 10-28-2020 End: 10-28-2020 Revj tot knee arthrp fem&entire tibial compone [employer] Work Phone: Start: 10-28-2020 Blood group typing, RH phenotyping [employer] Phone: Start: 09-24-2020 Nuclear medicine procedure Barak Rd[employer] Work Phone: Start: 09-19-2020 Radioisotope scan of bone Bhavana Addison Work Phone: Start: 09-11-2020 Intra-articular injection [employer]ak [employer] Work Phone: Start: 07-25-2019 Colonoscopy Sunita Ecg/Holter Start: 07-25-2019 Colonoscopy Obey ALAS Start: 07-25-2019 Esophagogastroduodenoscopy Obey ALAS Start: 04-26-2019 Arthroscopic knee operation Darwin RICHMOND Start: 10-25-2017 Ct abdomen & pelvis w/contrast material ROBERTO GRUBER Start: 10-25-2017 Ct thorax w/contrast material ROBERTO MCNULTY ER Start: 10-25-2017 CBC WITH AUTO DIFFERENTIAL ROBERTO GRUBER Start: 10-25-2017 COMPREHENSIVE METABOLIC PANEL ROBERTO HOUSTON Start: 10-25-2017 EKG 12-LEAD ROBERTO GRUBER Start: 11-21-2015 Colonoscopy Obey ALAS Arthroplasty of knee Darwin RICHMOND Arthroplasty of knee Obey ALAS Repair of meniscus Obey WOODS Revision of knee arthroplasty Obey ALAS Plan of Treatment Date Care Activity Detail Author Start: 09-23-2034 DTaP/Tdap/Td Vaccines (2 - Td or Tdap) DTaP/Tdap/Td Vaccines (2 - Td or Tdap) [facility] Start: 07-25-2029 Screening for malignant neoplasm of colon [facility] Start: 01-07-2026 End: 01-07-2026 Patient encounter procedure 01/07/2026 8:40 AM EST Office [place] [address] [place] [address] Fidelina Jones MD [address] [employer] [facility] [address] [place] [address] [facility] Start: 05-09-2025 End: 05-02-2026 ECG 12 Lead [facility] Service Area Work Phone: Comment on above: Expected: 05/09/2025 (Approximate), Expi res: 05/02/2026 Start: 05-09-2025 End: 05-09-2025 Professional / ancillary services management 05/09/2025 10:00 AM EDT Ancillary Procedure [place] [address] [place] [address] [facility] Start: 05-02-2025 End: 05-02-2025 Patient encounter procedure 05/02/2025 11:30 AM EDT Office Visit [place] [address] [place] [address] Fidelina Jones MD [address] [facility] [address] [place] [address] [facility] Start: 04-18-2025 Radionuclide myocardial perfusion stress study NM katya perf SPECT rest & str [facility] Start: 04-18-2025 SPECT Heart perfusion at rest and W stress and W radionuclide IV [facility] Start: 03-26-2025 End: 03-26-2025 Professional / ancillary services management 03/26/2025 8:00 AM EDT Ancillary Procedure [facility] [address] [place] [address] [facility] Start: 03-18-2025 End: 03-18-2026 Alanine aminotransferase [Enzymatic activity/volume] in Serum or Plasma by With P-5'-P Alanine Aminotransferase Lab Routine Dyspnea on exertion Other fatigue Expected: 03/18/2025 (Approximate), Expires: 03/18/2026 [facility] Work Phone: Comment on above: Expected: 03/18/2025 (Approximate), Expi res: 03/18/2026 Start: 03-18-2025 End: 03-18-2026 Aspartate aminotransferase [Enzymatic activity/volume] in Serum or Plasma by With P-5'-P Aspartate Aminotransferase Lab Routine Dyspnea on exertion Other fatigue Expected: 03/18/2025 (Approximate), Expires: 03/18/2026 [facility] Work Phone: Comment on above: Expected: 03/18/2025 (Approximate), Expi res: 03/18/2026 Start: 03-18-2025 End: 03-18-2026 Basic metabolic 2000 panel - Serum or Plasma Basic Metabolic Panel Lab Routine Dyspnea on exertion Other fatigue Expected: 03/18/2025 (Approximate), Expires: 03/18/2026 [facility] Work Phone: Comment on above: Expected: 03/18/2025 (Approximate), Expi res: 03/18/2026 Start: 03-18-2025 End: 03-18-2026 CBC panel - Blood by Automated count CBC Lab Routine Dyspnea on exertion Other fatigue Expected: 03/18/2025 (Approximate), Expires: 03/18/2026 [facility] Work Phone: Comment on above: Expected: 03/18/2025 (Approximate), Expi res: 03/18/2026 Start: 03-18-2025 End: 03-18-2026 Holter monitor study Holter Or Event [facility] Routine Palpitations Expected: 03/18/2025 (Approximate), Expires: 03/18/2026 [facility] Work Phone: Comment on above: Expected: 03/18/2025 (Approximate), Expi res: 03/18/2026 Start: 03-18-2025 End: 03-18-2026 Lipid 1996 panel - Serum or Plasma Lipid Panel Lab Routine Dyspnea on exertion Palpitations Abnormal EKG Other fatigue Mixed hyperlipidemia Expected: 03/18/2025 (Approximate), Expires: 03/18/2026 [facility] Work Phone: Comment on above: Expected: 03/18/2025 (Approximate), Expi res: 03/18/2026 Start: 03-18-2025 End: 03-18-2026 NM Heart Perfusion W stress and W radionuclide IV Nuclear Stress Test Cardiac Nuclear Medicine Routine Dyspnea on exertion Palpitations Abnormal EKG Expected: 03/18/2025 (Approximate), Expires: 03/18/2026 [facility] Work Phone: Comment on above: Expected: 03/18/2025 (Approximate), Expi res: 03/18/2026 Start: 03-18-2025 End: 03-18-2027 US Heart Transthoracic Transthoracic Echo Complete Echocardiography Routine Dyspnea on exertion Palpitations Expected: 03/18/2025 (Approximate), Expires: 03/18/2027 [facility] Service Area Work Phone: Comment on above: Expected: 03/18/2025 (Approximate), Expi res: 03/18/2027 Start: 08-29-[address] [facility] Start: 07-22-2024 COVID-19 Vaccine () COVID-19 Vaccine () [facility] Start: 07-22-2023 Influenza vaccination INFLUENZA VACCINE (#1) [facility] Start: 08-25-2022 End: 08-25-2022 Patient encounter procedure 08/25/2022 Office Visit Orthopaedics Gadiel Floyd MD [address] [place] [address] [facility] Start: 07-22-2022 Influenza vaccination INFLUENZA VACCINE (#1) [facility] Start: 06-16-2022 End: 06-16-2022 Patient encounter procedure 06/16/2022 Office Visit Orthopaedics Barak Hebert MD [address] [place] [address] [facility] Start: 05-26-2022 End: 05-26-2022 Patient encounter procedure 05/26/2022 Office Visit Orthopaedics Gadiel Floyd MD [address] [place] [address] [facility] Start: 04-19-2022 COVID-19 VACCINE (2 - Pfizer series) COVID-19 VACCINE (2 - Pfizer series) [facility] Start: 02-17-2022 End: 02-11-2023 XR Thumb - left Views [facility] Work Phone: Comment on above: 1 Occurrences starting 02/17/2022 until 02/17/2022 Expected: 02/17/2022 , Expires: 02/11/2023 Start: 02-17-2022 End: 02-11-2023 XR Thumb - right Views [facility] Work Phone: Comment on above: 1 Occurrences starting 02/17/2022 until 02/17/2022 Expected: 02/17/2022 , Expires: 02/11/2023 Start: 02-17-2022 End: 02-17-2022 Patient encounter procedure 02/17/2022 Office Visit Orthopaedics Gadiel Floyd MD [address] [place] [address] [facility] Start: 10-29-2021 End: 10-29-2021 Office Visit 10/29/2021 Office Visit Orthopaedics Bhavana Addison APRN-COLLEGE ARCHIVIST [address] [place] [address] [phone] [facility] Start: 10-02-2021 Diabetes mellitus screening Diabetes Screening [facility] Start: 07-22-2021 Influenza vaccination [facility] Start: 02-19-2021 End: 02-19-2021 Office Visit 02/19/2021 Office Visit Orthopaedics Barak Hebert MD [address] [place] [address] [phone] [facility] Start: 11-19-2020 End: 11-19-2020 Office Visit 11/19/2020 Office Visit Orthopaedics Kaila Richmond, PA-C [address] [place] [address] [phone] [facility] Start: 10-28-2020 End: 10-28-[address] [facility] Periop Comment on above: 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, initial encounter REVISION ARTHROPLAST Y KNEE left Start: 10-02-2020 End: 10-02-2020 Pre-Operative Nurse Assessment 10/02/2020 Pre-Operative Nurse Assessment Internal Medicine [facility] Pre Admission Start: 09-24-2020 Hospital Encounter 09/24/2020 Hospital Encounter Nuclear Medicine Barak Hebert MD [address] [place] [address] [phone] [facility] Nuclear Medicine Start: 09-23-2020 End: 09-23-2020 Appointment 09/23/2020 Appointment Nuclear Medicine Barak Hebert MD [address] [place] [address] [phone] [facility] Nuclear Medicine Start: 09-19-2020 End: 09-19-[address] [facility] Nuclear Medicine Start: 09-11-2020 End: 09-11-2021 Nuclear medicine imaging procedure NUC BONE MARROW LIMITED AREA Imaging Routine Pain in prosthetic joint, initial encounter Expected: 09/11/2020, Expires: 09/11/2021 [facility] [employer] [facility] Comment on above: Expected: 09/11/2020, Expires: 1 Start: 09-11-2020 End: 09-11-2021 Nuclear medicine procedure NUC WBC STUDY Imaging Routine Pain in prosthetic joint, initial encounter Expected: 09/11/2020, Expires: 09/11/2021 [facility] Comment on above: Expected: 09/11/2020, Expires: 1 Start: 09-11-2020 End: 09-11-2021 Radioisotope scan of bone NUC BONE SCAN WHOLE BODY Imaging Routine Pain in prosthetic joint, initial encounter Expected: 09/11/2020, Expires: 09/11/2021 [facility] Comment on above: Expected: 09/11/2020, Expires: 1 Start: 08-21-2018 [facility] Start: 01-25-2016 Abdominal aortic aneurysm screening [facility] Start: 01-25-2016 Pneumococcal vaccination [facility] Start: 2011 RSV High Risk: (Elderly (60+) or Population) (1 - Risk 60-74 years 1-dose series) RSV High Risk: (Elderly (60+) or Population) (1 - Risk 60-74 years 1-dose series) [facility] Start: 2001 Colonoscopy COLORECTAL CANCER SCREENING DISCUSSION [facility] Start: 2001 Prostate specific antigen measurement PROSTATE CANCER SCREENING DISCUSSION [facility] Start: 2001 Zoster vaccine hzv live for subcutaneous use ZOSTER (SHINGLES) VACCINE (1 of 2) [facility] Start: 2001 Zoster Vaccines (1 of 2) Zoster Vaccines (1 of 2) [facility] Start: 01-25-1996 Colonoscopy COLORECTAL CANCER SCREENING DISCUSSION [facility] Start: 01-25-1996 Screening for malignant neoplasm of colon COLORECTAL CANCER SCREENING DISCUSSION [facility] Start: 1991 Fasting lipid profile LIPID SCREENING [facility] Start: 1991 Lipid panel LIPID SCREENING [facility] Start: 1970 Pneumococcal vaccination Pneumococcal Vaccine (1 of 2 - PCV) [facility] Start: 1970 Third diphtheria, tetanus and acellular pertussis (DTaP) vaccination TDAP (ADULT) [facility] Start: 1969 Hepatitis C screening Hepatitis C Screening [facility] Start: 1969 Tetanus vaccination TETANUS [facility] Start: 1967 COVID-19 VACCINE (1) COVID-19 VACCINE (1) [facility] Start: 1963 COVID-19 VACCINE (1) COVID-19 VACCINE (1) [facility] Start: 01-25-1956 COVID-19 VACCINE (1) COVID-19 [facility]ACCINE (1) [facility] Start: 1951 Hepatitis C antibody, confirmatory test HEPATITIS C VIRUS SCREENING [facility] Start: 1951 Hepatitis C screening HEPATITIS C VIRUS SCREENING [facility] Start: 1951 Lipid panel Lipid Panel [facility] Start: 1950 Medicare Annual Wellness Visit Medicare Annual Wellness Visit (AWV) [facility] Start: 1951 Screening for malignant neoplasm of colon [facility] Start: 1951 Tetanus vaccination TETANUS [facility] ANAEROBE CULTURE [facility] [employer] [facility] Comment on above: Release Upon Ordering for 1 Occurrences starting 10/28/2020 Bacteria identified Cx Nom (Body fld) BODY FLUID CULTURE AND DIRECT SMEAR Microbiology Routine 10/28/2020 12:35 PM EST [facility] Bacteria identified Cx Nom (Unsp spec) BACTERIAL CULTURE AND DIRECT SMEAR, LESION, TISSUE, DEVICE Microbiology Routine Mechanical loosening of internal left knee prosthetic joint, initial encounter Release Upon Ordering for 1 Occurrences starting 10/28/2020 [facility] Comment on above: Release Upon Ordering for 1 Occurrences starting 10/28/2020 ECG 12 Lead ECG 12 Lead ECG Routine Dyspnea on exertion 03/18/2025 9:30 AM EDT [facility] Work Phone: Fungus identified Cx Nom (Unsp spec) [facility] Comment on above: Release Upon Ordering for 1 Occurrences starting 10/28/2020 Mycobacterium sp identified Org specific cx Nom (Tiss) ACID FAST CULTURE, TISSUE Microbiology Routine Mechanical loosening of internal left knee prosthetic joint, initial encounter Release Upon Ordering for 1 Occurrences starting 10/28/2020 [facility] Comment on above: Release Upon Ordering for 1 Occurrences starting 10/28/2020 Mycobacterium sp identified Org specific cx Nom (Unsp spec) [facility] End: 09-23-2020 Nuclear medicine imaging procedure NUC BONE MARROW LIMITED AREA Imaging Routine Pain in prosthetic joint, initial encounter 1 Occurrences starting 09/23/2020 until 09/23/2020 [facility] Comment on above: 1 Occurrences starting 09/23/2020 until 09/23/2020 Nuclear medicine marycarmen ging procedure NUC BONE MARROW LIMITED AREA Imaging Routine Pain in prosthetic joint, initial encounter 09/23/2020 12:09 PM EST [facility] End: 09-23-2020 Nuclear medicine procedure NUC WBC STUDY Imaging Routine Pain in prosthetic joint, initial encounter 1 Occurrences starting 09/23/2020 until 09/23/2020 [facility] Comment on above: 1 Occurrences starting 09/23/2020 until 09/23/2020 Nuclear medicine procedure NUC WBC STUDY Imaging Routine Pain in prosthetic joint, initial encounter 09/23/2020 6:01 AM [facility] Radiography for bone length studies [facility] TISSUE CULTURE [facility] X-ray of left knee [facility] X-ray of left knee XR KNEE LEFT 3 VIEWS Imaging Routine Hx of total knee arthroplasty, left 10/29/2021 10:55 AM EST [facility] XR Knee - left 3 Views XR KNEE L EFT 3 VIEWS Imaging Routine History of revision of total replacement of left knee joint 06/16/2022 9:41 AM EDT [facility] XR Knee - left 3 Views XR KNEE L EFT 3 VIEWS Imaging Routine Hx of total knee arthroplasty, left 11/23/2023 8:19 AM [facility] Immunizations Immunization Date Immunization Notes Care Provider Marce vargas 09-23-2024 tetanus toxoid, redu sahil diphtheria toxoid, and acellular pertussis vaccine, adsorbed Fidelina Jones MD Work Phone: [facility] 09-21-2024 influenza, seasonal, injectable Adrien Foley CHIEF MEDICAL DIRECTOR-COLLEGE ARCHIVIST Work Phone: [facility] Work Phone: 08-21-2023 influenza virus vacc ine, unspecified formulation Obey ALAS [facility] [place] 09-24-2022 SARS-CoV-2 (COVID-19 ) [id number] Darwin RICHMOND [facility] 08-31-2022 influenza virus vacc ine, unspecified formulation Darwin RICHMOND [facility] 03-29-2022 SARS-CoV-2 mRNA (nweqmxydivg-wkam-nravcp e) vaccine Darwin RICHMOND [facility] 09-21-2021 SARS-CoV-2 (COVID-19 ) Ad26 vaccine, recombinant Darwin RICHMOND [facility] 09-13-2021 SARS-CoV-2 (COVID-19 ) mRNA-1273 vaccine Darwin RICHMOND [facility] 02-19-2021 SARS-CoV-2 (COVID-19 ) Ad26 vaccine, recombinant Darwin RICHMOND [facility] 02-04-2021 SARS-CoV-2 (COVID-19 ) mRNA-1273 vaccine Darwin RICHMOND [facility] 01-19-2021 SARS-CoV-2 (COVID-19 ) Ad26 vaccine, recombinant Darwin RCIHMOND [facility] 01-07-2021 SARS-CoV-2 (COVID-19 ) mRNA-1273 vaccine Darwin RICHMOND [facility] 09-03-2020 influenza virus vacc ine, unspecified formulation Bhavana Addison APRN-COLLEGE ARCHIVIST Work Phone: [facility] 09-04-2019 influenza virus vacc ine, unspecified formulation Darwin RICHMOND [facility] 08-22-2018 influenza virus vacc ine, unspecified formulation Darwin [employer] [facility] 08-24-2017 influenza virus vacc ine, unspecified formulation Darwin RICHMOND [facility] 08-21-2017 pneumococcal polysaccharide vaccine, 23 valent Darwin RICHMOND [facility] 08-01-2017 pneumococcal polysaccharide vaccine, 23 valent Darwin RICHMOND [facility] 06-27-2017 pneumococcal polysaccharide vaccine, 23 valent Darwin RICHMOND [facility] 09-09-2016 influenza virus vacc ine, unspecified formulation Darwin RICHMOND [facility] Payers Date Payer Category Payer Private Health Insurance [id number] 2024 Self-pay 2023 Unknown [id number] 2022 Medicare supplementa l policy (as second payer) [employer] [id number] 2020 Unknown 2020 Unknown [id number] [id number] .[id number] 2017 Unknown [id number] 2016 Medicare [id number] .[id number] 2016 Medicare [id number] [id number] .[id number] 1959 Medicare [id number] 1959 Private Health Insurance [facility] [id number] 1959 Unknown [id number] 1951 Unknown [id number] 2.16.840.1.411952.3.579.2 .983 1951 Unknown [id number] 2.16.840.1.106509.3.579.2 .983 1951 Unknown [id number] 2.16.840.1.126091.3.579.2 .983 1951 Unknown [id number] 2.16.840.1.723457.3.579.2 .983 1951 Unknown [id number] 2.16.840.1.130168.3.579.2 .983 1951 Unknown [id number] 2.16.840.1.761622.3.579.2 .983 1951 Unknown [id number] 2.16.840.1.232962.3.579.2 .983 1951 Unknown [id number] 2.16.840.1.208318.3.579.2 .983 1951 Unknown [id number] 2.16.840.1.875227.3.579.2 .593 1951 Unknown [id number] 2.16.840.1.064234.3.579.2 .593 1951 Unknown [id number] 2.16.840.1.520142.3.579.2 .593 1951 Unknown [id number] 2.16.840.1.887953.3.579.2 .593 1951 Unknown [id number] 2.16.840.1.163374.3.579.2 .593 1951 Unknown [id number] 2.16.840.1.034063.3.579.2 .1259 1951 Unknown [id number] 2.16.840.1.609038.3.579.2 .727 1951 Unknown [id number] 2.16.840.1.290026.3.579.2 .727 1951 Unknown [id number] 2.16.840.1.634487.3.579.2 .727 1951 Unknown [id number] 2.16.840.1.327622.3.579.2 .727 1951 Unknown [id number] 2.16.840.1.467446.3.579.2 .727 1951 Unknown [id number] 2.16.840.1.657841.3.579.2 .727 1951 Unknown [id number] 2.16.840.1.257165.3.579.2 .727 1951 Unknown [id number] 2.16.840.1.988071.3.579.2 .1244 1951 Unknown [id number] 2.16.840.1.739034.3.579.2 .1244 1951 Unknown [id number] 2.16.840.1.057248.3.579.2 .1244 1951 Unknown [id number] 2.16.840.1.908809.3.579.2 .1244 Unknown [id number] 2.16.840.1.222262.3.579.2 .531 Unknown [id number] 2.16.840.1.569952.3.579.2 .531 Social History Date Type Detail Facility Start: 09-11-2020 End: 03-18-2025 Tobacco smoking status NHIS Former smoker [facility] History of tobacco use Cigarette Smoker A [facility] Start: 09-11-2020 End: 03-18-2025 Tobacco use and exposure Never used [facility] Start: 09-11-2020 End: 11-23-2023 Alcohol intake Ex-drinker (finding) [facility] Start: 1950 Sex Assigned At Not on file A [facility] Start: 10-02-2020 End: 11-23-2023 Tobacco Comment quit 40 yrs ago [facility] Start: 03-08-2025 End: 05-02-2025 Exposure to SARS-CoV-2 (event) Not sure [facility] Start: 10-01-2020 Tobacco smoking status Never s moked tobacco (finding) [facility] Start: 11-23-2023 End: 05-02-2025 Sex Assigned At Male [facility] History of tobacco use Current smoker [facility] Start: 11-23-2023 End: 05-02-2025 History of Social function [facility] Tobacco smoking status Never [facility] [place] Start: 1950 Sex Assigned At Male F [facility] Start: 03-18-2025 End: 05-02-2025 Alcoholic beverage intake Current drinker of alcohol (finding) [facility] Work Phone: Start: 03-18-2025 Alcohol Comment occ [facility] Work Phone: Tobacco smoking stat us NHIS Unknown if ever smoked [facility] Work Phone: Start: 04-22-2016 End: 03-27-2025 Sex Male (finding) [facility] Start: 05-02-2025 Alcohol Comment once in awhile [facility] Work Phone: Sexual Orientation [facility] Medical Equipment Procedure Code Equipment Code Equipment [...] Assessment Result Facility 10-23-2024 Functional Status N/A [facility] [place] 09-18-2024 Functional Status N/A [facility] [place] 08-14-2024 Functional Status N/A [facility] 01-31-2024 Functional Status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 Rehab Eval Level of [place]: Sit/Stand contact guard Physical Assist/Nonphysical Assist: Sit/Stand 1 person assist Weight-Bearing Restrictions: Sit/Stand weight-bearing as tolerated Assistive Device for Transfer: Sit/Stand wheeled walker Upper Body Dressing Level of [place] independent Physical Assist/Nonphysical Assist set-up required Lower Body Dressing Level of [place] moderate assist (50% patients effort) Physical Assist/Nonphysical Assist 1 person assist (including ZACKARY hose ) Toileting Level of [place] contact guard Physical Assist/Nonphysical Assist 1 person assist Grooming [place] Level (Grooming) supervision;wash face, hands General Therapy [...] hygiene training Therapist Information License # [id number] 1. Pt will complete LB dressing MOD [...] Supine to Sit, Rehab Eval Level of [place]: Supine/Sit stand-by assist Physical Assist/Nonphysical Assist: Supine/Sit 1 person assist Transfer Skill: Sit To Stand, Rehab Eval [place] (Sit-Stand Transfers) contact guard Physical Assist/Nonphysical Assist: Sit/Stand 1 person assist Weight-Bearing Restrictions: Sit/Stand weight-bearing as tolerated Assistive Device For Transfer: Sit/Stand 2 wheeled walker Gait Skills, PT Eval Level of [place]: Gait contact guard Physical Assist/Nonphysical Assist: Gait 1 person assist Weight-Bearing Restrictions: Gait weight-bearing as tolerated Assistive Device For Transfer: Gait 2 wheeled walker Gait Distance 75 feet Gait Analysis, PT Eval Gait Pattern Used swing-through gait Gait Deviations Identified (Gait) decreased gait speed;decreased heel strike;decreased step length Impairments Contributing To Gait Deviations decreased ROM;decreased strength Stair Negotiation Level of [place]: Stair Negotiation (not assessed at this time) [...] 11/19/2020 11:07 AM Patient: López Cortés MR#: [id number] : 1950 Age: 70 y.o. Referring Physician: [...] Date: 10/29/2020 Discharge Time: 10/29/2020 Discharge Unit: [facility] Inpatient Rehab unit Unit Length [...] ULTRAM Follow-up: Tess Fuentes MD [address] [facility] [address] In 1 week SANJUANITA louise 1 week Barak Hebert MD [address] [facility] [address] Call in 3 days Upcoming Appointments (up to five)-Some appointments for Medical Center outpatient clinics or diagnostic testing locations are not displayed below Provider Department Dept Phone 11/19/2020 11:[address] [facility] Orthopedics [phone] Total coordination of discharge care taking greater that 30 minutes documented in this encounter Discharge Instructions * Discharge Instr - Activity* Esperanza Avila MD - 10/29/2020 8:19 AM EST As tolerated * Discharge Instr - Diet* Esperanza Avila MD - 10/29/2020 8:20 AM EST As tolerated * Discharge Instr - Notify* Santa Zur[place] RN - 10/29/2020 10:08 AM EST Contact Office ([phone]) if: > Total Knee ROM < 90 [...] Hour Product Support Hotline at Contact Office ([phone]) if: > Total Knee ROM < 90 [...] [place] office is closed, you may call [phone] where you will be connected with an after hours orthopedic nurse that will be able to answer your questions. The morning after your discharge Dr. Don office will contact you to follow up with how your recovery is progressing at home. * Attachments The following attachments cannot be sent through Care Everywhere. * meloxicam (oral/injection) ([place]) * oxycodone ([place]) * acetaminophen (oral) ([place]) * docusate and senna ([place]) * multivitamins ([place]) * omeprazole ([place]) * doxycycline (oral/injection) ([place]) documented in this encounter Chief Complaint and [...] and content) DATE CREATED AUTHOR 05/16/2018 [facility] DATE CREATED AUTHOR 'S ORGANIZ ATION 05/16/[address] [facility] DATE CREATED AUTHOR AUTHOR'S ORGANIZ ATION 02/27/2019 [facility] DATE CREATED AUTHOR AUTHOR'S ORGANIZ ATION 10/30/2022 [facility] DATE CREATED AUTHOR AUTHOR'S ORGANIZ ATION 02/02/2023 [facility] DATE CREATED AUTHOR AUTHOR'S ORGANIZ ATION 06/09/2024 [facility] EPIC DATE CREATED AUTHOR AUTHOR'S ORGANIZ ATION 04/28/2025 [facility] DATE CREATED AUTHOR AUTHOR'S ORGANIZ ATION 05/08/2025 [facility] DATE CREATED AUTHOR AUTHOR'S ORGANIZ ATION 05/14/2025 [facility] Ambulatory Reason for Visit (unrecogniz ed section and content) Status Reason Specialty Diagnoses / Procedures Referred By Contact Referred To Contact Pending Review Diagnoses Left knee pain, unspecified chronicity Procedures XR BONE LENGTH STUDY Barak Hebert MD [address] [place] [address] Reason Comments Knee Pain Pain New Patient Status Reason Specialty Diagnoses / Procedures Referred By Contact Referred To Contact Closed Nuclear Medicine Diagnoses Pain in prosthetic joint, subsequent encounter Procedures NUC 3 PHASE LIMITED BONE SCAN NE BONE IMAGING, 3 PHASE Bhavana Addison, GLORIA-CARINE [address] [place], [place] [phone] [facility] Nuclear Medicine [address] [place] [phone] Status Reason Specialty Diagnoses / Procedures Referred By Contact Referred To Contact Closed Nuclear Medicine Diagnoses Pain in prosthetic joint, initial encounter Procedures NUC WBC STUDY NE ABSCESS IMAGING, WHOLE BODY Barak Hebert MD [address] [place] [address] [facility] Nuclear Medicine [address] [place] [phone] Status Reason Specialty Diagnoses / Procedures Referre d By Contact Referred To Contact Diagnoses Mechanical loosening of internal left knee prosthetic joint, 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, 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] Procedures NE REVISE KNEE JOINT REPLACE,ALL PARTS REVISION ARTHROPLASTY KNEE Barak Hebert MD [address] [place], [place] [id number] Reason Comments Post Op Visit Status Reason Specialty Diagnoses / Procedures Referred By Contact Referred To Contact New Request Diagnoses Hx of total knee arthroplasty, left Procedures XR KNEE LEFT 3 VIEWS Kaila Richmond PAShyannC [address] [place], [place] [phone] Status Reason Specialty Diagnoses / Procedures Referred By Contact Referred To Contact Closed Nuclear Medicine Diagnoses Pain in prosthetic joint, initial encounter Procedures NUC BONE MARROW LIMITED AREA NE BONE MARROW IMAGING, LTD Barak Hebert MD [address] [place], [place] [phone] [facility] Nuclear Medicine [address] [place], [place] [phone] Status Reason Specialty Diagnoses / Procedures Referred By Contact Referred To Contact Auth Not Needed Nuclear Medicine Diagnoses Pain in prosthetic joint, initial encounter Procedures NUC WBC STUDY NE ABSCESS IMAGING, WHOLE BODY Barak Hebert MD [address] [place] [address] [facility] Nuclear Medicine [address] [place], [place] [phone] Status Reason Specialty Diagnoses / Procedures Referred By Contact Referred To Contact New Request Diagnoses S/P total knee arthroplasty, left Procedures XR BONE LENGTH STUDY Barak Hebert MD [address] [place], [place] [phone] Specialty Diagnoses / Procedures Referred By Contac t Referred To Contact Diagnoses Hx of total knee arthroplasty, left Procedures XR KNEE LEFT 3 VIEWS Bhavana Addison, CHIEF MEDICAL DIRECTOR-CARINE [address] [place], [place] [phone] Referral ID Status Reason Start Date Expiration Date V isits Requested Visits Authorized [id number] New Request 10/22/2021 11/16/2022 1 1 Reason Comments Follow-up Reason Comments Pain Condition Update Specialty Diagnoses / Procedures Referred By Contac t Referred To Contact Diagnoses Bilateral thumb pain Procedures XR THUMB LEFT Gadiel Floyd MD [address] [place] [address] Referral ID Status Reason Start Date Expiration Date V isits Requested Visits Authorized [id number] New Request 02/11/2022 03/08/2023 1 1 Reason Comments Pain Specialty Diagnoses / Procedures Referred By Contac t Referred To Contact Orthopaedic Surgery Diagnoses Bilateral thumb pain Barak Hebert MD [address] [place] [address] Gadiel Floyd MD [address] [place] [address] Referral ID Status Reason Start Date Expiration Date V isits Requested Visits Authorized [id number] New Request 12/17/2021 01/11/2023 1 1 Reason Comments Follow-up Follow Up- Bilat Bas al Joint Arthritis/ Last Injection: 02/17/22- Pain Scale: 2/10 Bilat Referral ID Status Reason Start Date Expiration Date V isits Requested Visits Authorized [id number] New Request 11/22/2023 12/16/2024 1 1 Reason Comments New Patient Visit Self /ref for sob on exertion Specialty Diagnoses / Procedures Referred By Contac t Referred To Contact Diagnoses Dyspnea on exertion Procedures ECG 12 Lead Adrien Foley, CHIEF MEDICAL DIRECTOR-COLLEGE ARCHIVIST [address] [facility] [address], [address] [address] Phone: tel: fax: Referral ID Status Reason Start Date Expiration Date V isits Requested Visits Authorized [id number] Authorized 03/18/2025 03/18/2026 1 1 Reason Comments Follow-up Echo, stress, monito r test results Reason Comments ekg visit Specialty Diagnoses / Procedures Referred By Contac t Referred To Contact Diagnoses Paroxysmal atrial fibrillation (Multi) Procedures ECG 12 Lead Fidelina Jones MD [address] [facility] 2, [facility] [address] [place] [address] Phone: tel: fax: Referral ID Status Reason Start Date Expiration Date V isits Requested Visits Authorized [id number] Authorized 05/02/2025 05/02/2026 1 1 Amaris Samayoa RN - 10/28/2020 2:35 PM ESTWhAmaris tubbs RN - 10/28/2020 12:50 PM EST Nursing Notes (unrecognized section and content) Patient ransferred to PACU via bed with this nurse and CMA OR LPN. Bedside report given to ANOOP Law. Fire [...] the discharge planning process with social media manager and the multidisciplinary team. Return to bay from PT. C/o pain 4 out of 10. Pain pill offered but Tylenol due. PT to take tylenol and save oxicodone for after lunch. Follow up phone call to [facility], who state that they can accept to start services tomorrow. Follow up call received from Suzy at [facility]. Referral for [facility] therapist, Santa to be made through [facility]. Instructed to request Santa for PT on referral. Referral sent at this time. To PT room Spoke with Suzy at [facility] regarding referral. Referring patient [...] PROCEDURE: 10/28/2020 ATTENDING PHYSICIAN: Barak Hebert M.D. TILE CONDUIT LAYER: Bhavana Addison CNP. PREOPERATIVE DIAGNOSIS: Failed left [...] on the back table according to the information management manager s technique. They were then cemented into [...] without the assistance of a skilled surgical dental assistant. A surgical dental assistant was medically necessary for positioning, retraction [...] home with his spouse and C through [facility], which he has used in the past. Per nursing, his incision is closed with elizabeth, HHC to remove, will request 3 week follow up appointment. Patient denies any other needs at this time. Phone call to [facility] to discuss referral, message left. Follow up appointment requested. Social work and PT notified that pt is back in bay 310. POST OPERATIVE/PROCEDURE NOTE López Suad ([id number]) SURGEON Surgeon(s) and Role: * Barak Hebert MD - Primary TILE CONDUIT LAYER MARK Richardson ANESTHESIOLOGIST CMA OR LPN: Yusef Escobedo CRNA SURGICAL STAFF Machine Setup Operator: Kerry Richter RN Nurse Practitioner: MARK Richardson Scrub Person: Andrew Moffett RN; Alyx Miller; Martha Rolon RN Automatic Vulcanizing Operator Biomed Tech: Escobar Rodriguez Quarry Supervisor Dimension Stone: Efrem Bonner LPN PROCEDURE PERFORMED Procedure(s) (LRB): [...] DEVICE Barak Hebert MD 10/28/2020 1301 Bhavana Addison APRN-COLLEGE ARCHIVIST October 28, 2020 2:39 PM CM met with patient this date to discuss post-surgical discharge plans. Patient states that he plans to return home with his spouse and [facility] after discharge for a left knee revision. He states that lives in [place] and would like to utilize [facility] in that area. He states that he has a wheeled walker and will bring it with him on the day of surgery. CM to continue to follow and assist with discharge plans. 10/02/20 0928 Information Source Information Source patient Contact Information Road Machinery Inspector Name Sun Lopez RN Case Manager's Living [...] Care Teams (unrecognized sec tion and content) Distribution Sales Manager Relationship Specialty Start Date End Date Tess Fuentes MD [address] [facility] [place] [address] [place] [address] PCP - General Family Medicine 09/11/20 Distribution Sales Manager Relationship Specialty Start Date End Date Tess Fuentes MD [address] [facility] [place] [address] [place] [address] PCP - General Family Medicine 09/11/20 Distribution Sales Manager Relationship Specialty Start Date End Date Tess Fuentes MD [address] [facility] [place] [address] [place] [address] PCP - General Family Medicine 09/11/20 Distribution Sales Manager Relationship Specialty Start Date End Date Tess Fuentes MD [address] [facility] [place] [address] [place] [address] PCP - General Family Medicine 09/11/20 Distribution Sales Manager Relationship Specialty Start Date End Date Tess Fuentes MD [address] [facility] [place] [address] [place] [address] PCP - General Family Medicine 09/11/20 Distribution Sales Manager Relationship Specialty Start Date End Date Tess Fuentes MD [address] [facility] [place] [address] [place] [address] PCP - General Family Medicine 09/11/20 Distribution Sales Manager Relationship Specialty Start Date End Date Tess Fuentes MD [address] [facility] [place] [address] [place] [address] PCP - General Family Medicine 09/11/20 Distribution Sales Manager Relationship Specialty Start Date End Date Tess Fuentes MD [address] [facility] [place] [address] [place] [address] PCP - General Family Medicine 09/11/20 Distribution Sales Manager Relationship Specialty Start Date End Date Tess Fuentes MD [address] [place] [address] PCP - General Family Medicine 09/11/20 Distribution Sales Manager Relationship Specialty Start Date End Date Tess Fuentes MD [address] [place] [address] PCP - General Family Medicine 09/11/20 Team Status: Inactive Member Role Status Dates Obey Alas MD FACS Attending Provider Active Start: February 28, 2024 End: February 28, 2024 Team Status: Inactive Member Role Status Dates Obey Alas MD FACS Attending Provider Active Start: August 29, 2024 End: August 29, 2024 Distribution Sales Manager Relationship Specialty Start Date End Date Tess Fuentes MD [facility] [place] [address] PCP - General Family Medicine 03/14/25 Team [...] 2025 Team Status: Active Member Role Status Jolie Foley APRN Other Provider Active Start : April 18, 2025 Barbara Galdamez DO Referring Provider Active S tart: April 18, 2025 Tess Fuentes MD Primary Care Provider Active Start: April 18, 2025 Epi Paredes MD Attending Provider Activ e Start: April 18, 2025 Distribution Sales Manager Relationship Specialty Start Date End Date Tess Fuentes MD [address] [facility] [place] [address] PCP - General Family Medicine 03/14/25 Distribution Sales Manager Relationship Specialty Start Date End Date Tess Fuentes MD [address] [facility] [place] [address] PCP - General Family Medicine 03/14/25 Goals [...] BE BASED ON THE PRIMARY CLINICAL RECORDS. [employer] provides no warranty or guarantee of the accuracy or completeness of information in this document.
--- OUTSIDE RECORDS SUMMARY | 2025-05-22 07:01 | XMS_ITS | Clinical Summary ---
Author Organization [facility] Healthcare Address [address] [facility] [place] [address] Care Team Providers Care Animal Care Attendant Name Role Phone Unavailable Primary Care Provider [...]
--- OUTSIDE RECORDS SUMMARY | 2025-05-22 07:01 | XMS_ITS | Encounter Summary ---
Author Organization [facility] Address [address] [place] [address] Phone Care Team Providers Care Ecologist Technician Name Role Phone Efe Morris MD Primary Care Provider + -[phone] Reason for Visit * Reason Onset Date Comments med hold 05/13/2025 Encounter Details Date Type Department Care Team (Late st Contact Info) Description 05/13/2025 Telephone [facility] [address] [facility] [address] [place] [address] Julissa Alonso LPN med hold [...] too Patient is scheduled for Egd/colonoscopy 05/22/2025. Phone-[phone] Fax-[phone] documented in this encounter Plan of Treatment Upcoming Encounters Date Type Department Care Team (Late st Contact Info) Description 01/07/2026 8:40 AM EST Office Visit [address] [place] [phone] Fidelina Albarado MD [address] [facility] [address] [place] [address] documented as of this encounter Visit Diagnoses Not on filedocumented in this encounter Additional Health Concerns Assessment Noted Time A fall risk assessment has been complete d for the patient 05/02/2025 10:56 AM EDT documented as of this encounter Care Teams Ecologist Technician Relationship Specialty Start Date End Date Efe Morris MD [address] [facility] [place] [address] PCP - General Family Medicine 03/14/25 documented as of this encounter
[2025-05-22 07:26] VITALS: BP 108/86; PULSE 61; TEMP 35.8; O2SAT 94; BMI 32.8
[2025-05-22] MEDS: 0.9 % SODIUM CHLORIDE 500 ML 50 ML IV (07:45)
[2025-05-22] MEDS: BUPIVACAINE HCL 0.5% PF 50 MG/10 ML VIAL 6 ML INJ (09:28)
[2025-05-22 09:51] VITALS: BP 117/70; PULSE 63; TEMP 36.1; O2SAT 94
[2025-05-22 10:06] VITALS: BP 129/73; PULSE 61; O2SAT 94
[2025-05-22] MEDS: ACETAMINOPHEN 500 MG TABLET 1000 MG PO (10:09)
== END 2025-05-22 10:30 | disposition home or self-care (01) ==
LOC: SURGOUT 06:58
PROVIDERS: PCP Family Medicine; Visit Provider Surgery
PROC: (CPT 11403; principal; 2025-05-22 08:20)
PROC: (CPT 11403; 2025-05-22 08:20)
DX: R19.5 Other fecal abnormalities (principal); K22.70 Barrett's esophagus without dysplasia; K44.9 Diaphragmatic hernia without obstruction or gangrene; L72.0 Epidermal cyst; K57.30 Diverticulosis of large intestine without perforation or abscess without bleeding; D12.2 Benign neoplasm of ascending colon; Z86.0102 Personal history of hyperplastic colon polyps; I48.91 Unspecified atrial fibrillation; I12.9 Hypertensive chronic kidney disease with stage 1 through stage 4 chronic kidney disease, or unspecified chronic kidney disease; E78.00 Pure hypercholesterolemia, unspecified; N18.9 Chronic kidney disease, unspecified; N40.0 Benign prostatic hyperplasia without lower urinary tract symptoms; K21.9 Gastro-esophageal reflux disease without esophagitis; G62.9 Polyneuropathy, unspecified; J44.9 Chronic obstructive pulmonary disease, unspecified; Z90.49 Acquired absence of other specified parts of digestive tract; Z79.899 Other long term (current) drug therapy; R52 Pain, unspecified; Z87.891 Personal history of nicotine dependence
CPT/HCPCS: 11403; 43239; 45385; J0665; J2371; J2704

== ENCOUNTER 2025-06-17 14:44 | Outpatient (OUT) | payer MEDICARE, SELFPAY ==
--- OUTSIDE RECORDS SUMMARY | 2015-09-22 04:40 | XMS_ITS | Continuity of Care Document ---
Author Organization [facility] Address [address] [place] [address] Phone Care Team Providers Care [employer] Supervisor Name Role Phone Adeline RILEY, Ernestina Unavailable Unavailable Allergies, Adverse Reactions, Alerts Substance Reaction Status Criticality Sulfa (Sulfonamide Antibiotics) Active No Information Medications Medication Instructions Dosage Effective Dates (start - stop) Status Comments pravastatin 10 mg tablet take 1 tablet by oral route every day 10 MG - Active Procedures Procedure Date Fluorescein Angiography Fluorescein Angiography Fundus Photos New Patient, Moderate Advance Directives Directive Yes / No Effective Date File Name No Information Encounters Encounter Description Practice Location Reason(s) For Visit Diagnoses Date Provider Providers Copied on Encounter New Patient, Moderate [facility], [address] [place], [address], [place] tel:+ [phone] [facility] [place] hemorrhage OS (chief complaint)s hadown inferiorly (chief complaint)_ ____ (chief complaint) Retinal hemorrhage, left eyeBilateral age-related nuclear cataractsSecondary pigmentary degeneration, bilateralIschemic optic neuropathy, left eye 5 Adeline Do. [address], [address], [place], [place], [id number] , [place]. tel:[phone] Referring Provider: Miguel Sullivan, [address] [place], [address]. tel:[phone] Family History Family Member Type Diagnosis Age At Onset Mother Problem (finding) glaucoma Father Problem (finding) alzheimer's disease Mother Problem (finding) stroke Payers Payer name Insurance type Covered alliance party ID Ced arteaga(s) No Information Social History Type Description Quantity Date Captured Comments Alcohol Use Details a variable a mount occasionally Caffeine Use Details Tobacco Use Status Never smoked tobacco 2014 Smoking Status Never smoker Non-Smoking Tobacco Use Details : No Details Available : No Details Available Sex Male Vital Signs Date / Time: Height Weight BMI Pulse Rate Blood Pressure Temperature Respiratory Rate Body Surface Area Head Circumference Head Circ. Percentile Wt./Ad. Percentile BMI percentile Pulse Ox Inhaled Ox 9:08 AM 177/88 mm[Hg] Chief Complaint And Reason For Visit From encounter dated '09/22/2015 08:40'. hemorrhage OS (chief complaint). Description: The 65 Years old male presents for evaluation of hemorrhage OS shadown inferiorly (chief complaint). Description: The patient complains of shadown inferiorly in the left eye. It started about 1 week ago . The onset was sudden. It affects both near and far vision. The symptom is constant. It occurs always. The condition is mild. In addition, the condition is associated with daily activity and chores. The patient denies eye pain. (chief complaint). Description: BP 177/88 Reason For Referral Reason For Referral No Information History Of Present Illness Encounter Date Complaint History Of Prese nt Illness BP 1 77/88 shadown inferiorly The patient c omplains of shadown inferiorly in the left eye. It started about 1 week ago . The onset was sudden. It affects both near and far vision. The symptom is constant. It occurs always. The condition is mild. In addition, the condition is associated with daily activity and chores. The patient denies eye pain. hemorrhage OS The 65 Years old male presents for evaluation of hemorrhage OS Functional Status Date Functional Assessmen t No Information Instructions Date Instruction Additional Infor mation - Patient has possib le Ischemic optic neuropathy in the left eye. Patient denies any symptoms consistent with temporal arteritis. I advised patient he should be seen by Dr. Burr, a neuropthlamologist in [place] tomorrow for further evaluation. Patient was told to call with any worsening or sudden visual changes. Related to Ischemic optic neuropathy, left eye - We will continue t o monitor. See above. Related to Retinal hemorrhage, left eye - We will continue to monitor. R elated to Secondary pigmentary degeneration, bilateral - Regular follow up appointments with the patient's comprehensive eye doctor was again recommended, to monitor the patients cataract for progression. Referral for surgical intervention is not indicated at this time. Related to Bilateral age-related nuclear cataracts - Patient is to retu rn per Dr. Burr and Dr. Sullivan Related to Ischemic optic neuropathy, left eye Assessments Type Assessment Date assessment Retinal hemorrhage, left eye Sep assessment Bilateral age-related nuclear ca taracts assessment Secondary pigmentary degeneratio n, bilateral assessment Ischemic optic neuropathy, left eye Patient Care Teams Name Effective Dates (start - stop) Status Members No Information
--- OUTSIDE RECORDS SUMMARY | 2025-05-08 07:36 | XMS_ITS ---
Author Organization The [facility] in [place] Address [address] [place] [address] Care Team Providers Care Lifeguard Name Role Phone Abhilash Morris Primary Care Provider REASON FOR VISIT BP check Encounters Encounter Location Date Provider Diagnosis [facility] [address] [place] [address] 05/08/2025 Abhilash Morris Hypertension I10 Assessments Encounter Date Diagnosis (ICD Code) Assessment Notes Treatment Notes Treatment Clinical Notes Section Notes 05/08/2025 Hypertension (ICD-10 - I10) Plan Of Treatment Medication Medication Name Sig Start Date Stop Date Notes Irbesartan 150 MG 1 tablet Orally Once a day dose changed per pt Progress Notes * López CORTÉS PDOB:[birth year] (75 yo M)Acc No.[id number]:05/08/2025 Patient: Ruby López REHMAN :1950 A ge:75 Y S ex:Male Address:[address] [place] [address], [address] * Refills Stop Irbesartan Tablet, 150 MG, Orally, 1 tablet, Once a day * true * Date: Generated for Yareli catalan/Adriana/eTransmitting on: 0 06/17/2025 02:46 PM EDT
--- OUTSIDE RECORDS SUMMARY | 2025-06-04 04:58 | XMS_ITS ---
Author Organization [facility] [place] Address [address] [place] [address] Care Team Providers Care Recreational Counselor Name Role Phone Arturo Abhilash Primary Care Provider [phone] REASON FOR VISIT medicare wellness Encounters Encounter Location Date Provider Diagnosis [facility] [address] [facility] [place] [address] 06/04/2025 Abhilash Elanzack Screening for osteoporosis Z13.820 Assessments Encounter Date Diagnosis (ICD Code) Assessment Notes Treatment Notes Treatment Clinical Notes Section Notes 06/04/2025 Screening for osteoporosis (ICD-10 - Z13.820) Plan Of Treatment Pending Test Test Name Order Date XR DEXA BONE DENSITY 06/04/2025 Progress Notes * López BORJAS PDOB:[birth year] (75 yo M)Acc No.[id number]:06/04/2025 Patient: Ruby REHMAN López Moreno :1950 A ge:75 Y S ex:Male Address:[address] [place] [address], [id number] Subjective: * Chief Complaints: * M edicare wellness * Medical History: * Surgical History: * Hospitalization/Major Diagno stic Procedure: * Medications: Objective: * Vitals: * Physical Examination: Assessment: * Assessment: 1. S creening for osteoporosis - Z13.820 (Primary) Plan: * Treatment: * Procedure Codes: * true * Date: Generated for Printi ng/Faxing/Matthew on: 0 06/17/2025 02:46 PM EDT
--- OUTSIDE RECORDS SUMMARY | 2025-06-04 05:00 | XMS_ITS ---
Author Organization [facility] [place] Address [address] [place] [address] Care Team Providers Care Accounts Payable Administrator Name Role Phone Abhilash Morris Primary Care Provider Allergies Allergen (clinical drug ingredient) Drug/Non Drug Allergy documented on EMR Reaction Allergy Type Onset Date Status Sulfa Unknown Drug Allergy Active REASON FOR VISIT subsequent Medicare Wellness Medications Medication SIG (Take, Route, Frequency, Duration) Notes Start Date End Date Status Triamcinolone Acetonide 0.1 % 1 application Externally Twice a day for 30 06/27/2023 Active tiZANidine HCl 4 MG 2 tablets Orally at bedtime for 15 02/07/2024 Active Cervical Traction - Cervical traction 25 pounds - QOD - Dx Cervical radiculpathy for 1 days 04/19/2024 Active Clotrimazole-Betamethasone 1-0.05 % 1 application Externally Twice a day 02/12/2025 Active Dabigatran Etexilate Mesylate 150 MG Oral for 90 Days Active Temazepam 15 MG 1 capsule at bedtime as needed Orally dx G47.00 Once a day for 30 days 02/12/2025 Active Pravastatin Sodium 40 MG TAKE 1 TABLET B Y MOUTH EVERY DAY for 90 Active Tamsulosin HCl 0.4 MG TAKE 1 CAPSULE BY MOUTH EVERY DAY for 90 days Active Metoprolol Succinate ER 25 MG Oral for 90 Days Active Pantoprazole Sodium 40 MG TAKE 1 TABLET BY MOUTH EVERY DAY for 90 Active Social History AUDIT-C (Standard) Question Answer Notes Did you have a drink containing alcohol in the p ast year? No Points 0 Interpretation Negative Vital Signs Weight 224.8 lbs 06/04/2025 Height 68 in 06/04/2025 Blood pressure systolic 118 mm Hg 06/04/20 25 Blood pressure diastolic 70 mm Hg 025 BMI 34.18 kg/m2 06/04/2025 Encounters Encounter Location Date Provider Diagnosis [facility] [address] [place] [address] 06/04/2025 Abhilash Ansarizack Encounter for Medica annual wellness exam Z00.00 Assessments Encounter Date Diagnosis (ICD Code) Assessment Notes Treatment Notes Treatment Clinical Notes Section Notes 06/04/2025 Encounter for Medicare annual wellness exam (ICD-10 - Z00.00) patient was seen today for a subsequent medicare wellness appointment, safety, anxiety, and depression screening was completed without issues, slums memory test was completed and the patient scored 28/30, vision test was completed and the patient cound see 20/13 with corrected lenses. yearly labs are all up to date,along with immuniazations patient has never had a dexa scan, colonoscopy was completed last week Plan Of Treatment No Information Progress Notes * López CORTÉS PDOB:[birth year] (75 yo M)Acc No.[id number]:06/04/2025 UNLOCKED PROGRESS NOTE Progress Note Patient: López ROBLERO Provider: Lashae Morris ([facility])MD :1950 A ge:75 Y S ex:Male Date:06/04/2025 Address:[address] [place], [place] [id number] Check In:08:37 AM ESTCheck O ut:09:13 AM EST Subjective: * Chief Complaints: * 1 . subsequent Medicare Wellness. * HPI: M edicare Annual Wellness Visit: Type of Visit: S ubseunc health nash Annual Wellness Visit (SAWV).? Visual Acuity: N /A. Other Providers of Care: C are Team reviewed with patient: Y josé manuel, and updates made in [place] of Care Physical Activity: D o you exercise regularly? Y es T ype of exercise: _ __ F requency: _ __ Nutrition/Diet: O n a typical day, how many servings of fruits and vegetables do you consume? 0 I n a typical week, how many servings of fried or high fat (such as cheese, fatty meat) do you consume? 0 I n a typical week, how many servings of high fiber or whole grain foods do you consume? 0 Seat Belt: D o you always use your seat belt in your car??Yes A re you having difficulties driving your car??No C an you get to places out of walking distance without help? Y es Dental: H ow would you describe the condition of your mouth and teeth, including any false teeth or dentures? E xcellent Medication List Follow-Up: D uring the past four weeks, how much bodily pain do you have? N o pain D o you have a current opioid prescription??No Self Assessment of Health: H ow would you rate your overall health the past four weeks? E xcellent H ow confident are you that you can control and manage most of your health problems? V michelle confident H ow have things been going for you during the past four weeks? V michelle well; could hardly be better D uring the past four weeks, was someone available to help you if you needed and wanted help? Y es, as much as I wanted (Example: if you felt nervous, lonely, or blue; got sick and had to stay in bed; needed someone to talk to; help with daily chores; or needed help just taking care of yourself) D o you have any sexual problems? N o D o you have any troubles eating well? N o D o you have any problems with tiredness or fatigue? N o H ave you noticed any hearing difficulties??No Sun Exposure: D o you protect yourself from over exposure to the sun when outdoors? Y es Mental Wellness: D uring the past four weeks, how much have you been bothered by emotional problems such as feeling anxious, depressed, irritable, sad, or downhearted and blue? N ot at all D uring the past four weeks, has your physical and emotional health limited your social activities with family, friends, neighbors, or groups??Not at all Functional Ability and Safety Screening: D o you need assistance with any of the following? Select all that apply. N one D oes your home have rugs in the hallway, lack grab bars in the bathroom, lack handrails on the stairs or have poor lighting? N o D o you feel unsteady and/or dizzy when standing or walking? N o D o you have smoke detectors in your home and routinely change the batteries? Y es D o you have a fire extinguisher and know how to use it properly? Y es D o you have any problems with your living situation, food, transportation, utilities, or safety? N o Cognitive Screening: H ave you experienced any memory issues or problems with thinking? N o H ave your family members, friends, caretakers, or others raised any concerns? N o D o you get confused or easily distracted more than you used to? N o H as your ability to concentrate seem to have declined recently? N o End of Life Planning: D o you have a living will? Y es D o you have a Durable Power of Musical Instruments Assembler? Y es W ould you like to discuss this topic today??Yes SDOH A gree to complete Social Determinants of Health questionnaire Y es W ithin the past 12 months, did you worry that your food would run out before you got money to buy more? N o W ithin the past 12 months, did the food you bought just not last and you didn't have money to buy more? N o W ithin the past 12 months, have you ever stayed: outside, in a car, in a a tent, in an overnight senior living, or temporarily in someone else's home??No A re you worried about losing your housing??No W ithin the past 12 months, have you been able to get utilities (heat, electricity) when it was really needed? N o W ithin the past 12 months, has a lack of transportation kept you from medical appointments or from doing things needed for daily living? N o D o you feel physically or emotionally unsafe where you currently live? N o W ould you like help with any of these needs that you have identified? N o * Medical History: P eripheral neuropathy, Impingement syndrome of left shoulder, Chronic kidney disease, stage II (mild), Arthralgia, Conjunctival hemorrhage, BPH (benign prostatic hyperplasia), Terrazas esophagus, DJD (degenerative joint disease) of knee, Angioneurotic edema, Shoulder impingement syndrome, Knee osteoarthritis, GERD (gastroesophageal reflux disease), Insomnia, Hypertension, Trigger middle finger of right hand, Glaucoma, Hypercholesteremia, Fractured sternum. * Surgical History: C olonoscopy Dr Giron 2016, cholecystectomy , ROTAR CUFF REPAIR- RIGHT , TRIGGER FINGER , HEMORRHOID SURGERY , RIGHT KNEE PARTIAL MENISCESTOMY 03/2019, REVISION LEFT TOTAL ARTHROPLASTY, PERIARTICULAR INJECTION, PLACEMENT OF CONTINUOUS CATHETER 10/29/2020, BILATERAL BASAL JOINT INJECTONS , skin cancer removal from left ear , colonoscopy 05/22/25, EGD 05/22/25. * Hospitalization/Major Diagno stic Procedure: S ee above . * Family History: F ather: . M other: alive. 1 sister(s) . 1 son(s) , 1 daughter(s) . . MOTHER-CVA. * Social History: T obacco Use: T obacco Use/Smoking P atient is a : former smoker.? D rug/Alcohol: A JACK-C (Standard) D id you have a drink containing alcohol in the past year? N o P oints 0 I nterpretation N egative * Medications: T aking Cervical Traction - Kit Cervical traction 25 pounds - QOD - Dx Cervical radiculpathy , Taking Clotrimazole-Betamethasone 1-0.05 % Cream 1 application Externally Twice a day , Taking Dabigatran Etexilate Mesylate 150 MG Capsule Oral , Taking Metoprolol Succinate ER 25 MG Tablet Extended Release 24 Hour Oral , Taking Pantoprazole Sodium 40 MG Tablet Delayed Release TAKE 1 TABLET BY MOUTH EVERY DAY , Taking Pravastatin Sodium 40 MG Tablet TAKE 1 TABLET BY MOUTH EVERY DAY , Taking Tamsulosin HCl 0.4 MG Capsule TAKE 1 CAPSULE BY MOUTH EVERY DAY , Taking Temazepam 15 MG Capsule 1 capsule at bedtime as needed Orally dx G47.00 Once a day , Taking tiZANidine HCl 4 MG Tablet 2 tablets Orally at bedtime , Taking Triamcinolone Acetonide 0.1 % Cream 1 application Externally Twice a day , Medication List reviewed and reconciled with the patient * Allergies: S ulfa. Objective: * Vitals: W t:224.8lbs, Ht: 68 in, BP:118/70mm Hg, BMI:34.18Index, Ht-cm: 172.72 cm, Wt-k.97 kg. Assessment: * Assessment: 1. E ncounter for Medicare annual wellness exam - Z00.00 (Primary) patient was seen today for a subsequent medicare wellness appointment, safety, anxiety, and depression screening was completed without issues, slums memory test was completed and the patient scored 28/30, vision test was completed and the patient cound see 20/13 with corrected lenses. ?yearly labs are all up to date,along with immuniazations p justine has never had a dexa scan, colonoscopy was completed last week Plan: * Treatment: * Procedure Codes: G 0439 ANNUAL WELLNESS, SUBSEQ * Preventive Medicine: Screenings/Counseling: B [place] ACTION PLAN Above Normal BMI Follow-up D ietary management education, guidance, and counseling F ALL RISK SCREENING Fall Risk Assessment: N o falls in the past year Are you afraid of falling? N o * * Electronic signature of Abhilash Morris MD, [phone] on 06/17/2025 at 02:46 PM EDT Sign off status: Pending Visit Status: C HK (Check Out) * Provider: Lashae Morris ([facility])MD Date: 06/04/2025 Generated for Yareli catalan/Adriana/eTransmitting on: 06/17/2025 02:46 PM EDT History and Physical Notes * HPI (History of Present Illness) Category Sub-Category Detail Notes Category Not es Medicare Annual Wellness Visit Type of Visit: Subsequent Annual Wellness Visit (SAWV) Cognitive Screening: Have you experience d any memory issues or problems with thinking?: No Have your family members, fr iends, caretakers, or others raised any concerns?: No Do you get confused or easily distracted more than you used to?: No Has your ability to concentrate seem to have declined recently?: No Self Assessment of Health: How would you rate your overall health the past four weeks?: Excellent How confident are you that y ou can control and manage most of your health problems?: Very confident How have things been going f or you during the past four weeks?: Very well; could hardly be better During the past four weeks, was someone available to help you if you needed and wanted help?: Yes, as much as I wanted (Example: if you felt nervous, lonely, o r blue; got sick and had to stay in bed; needed someone to talk to; help with daily chores; or needed help just taking care of yourself) Do you have any sexual problems?: No Do you have any troubles eating well?: N o Do you have any problems wit h tiredness or fatigue?: No Have you noticed any hearing difficulties?: No Physical Activity: Do you exercise regularly?: Y es Type of exercise:: ___ Frequency:: ___ Functional Ability and Safety Screening: Do you need assistance with any of the following? Select all that apply.: None Does your home have rugs in the hallway, lack grab bars in the bathroom, lack handrails on the stairs or have poor lighting?: No Do you feel unsteady and/or dizzy when s tanding or walking?: No Do you have smoke detectors in your home and routinely change the batteries?: Yes Do you have a fire extinguisher and know how to use it properly?: Yes Do you have any problems wit h your living situation, food, transportation, utilities, or safety?: No Visual Acuity: N/A Nutrition/Diet: On a typical day, ho w many servings of fruits and vegetables do you consume?: 0 In a typical week, how many servings of fried or high fat (such as cheese, fatty meat) do you consume?: 0 In a typical week, how many servings of high fiber or whole grain foods do you consume?: 0 Seat Belt: Do you always use your seat belt in your car?: Yes Are you having difficulties driving your car?: No Can you get to places out of walking dis tance without help?: Yes Dental: How would you descri be the condition of your mouth and teeth, including any false teeth or dentures?: Excellent Medication List Follow-Up: During the four weeks, how much bodily pain do you have?: No pain Do you have a current opioid prescriptio n?: No Mental Wellness: During the past four weeks, how much have you been bothered by emotional problems such as feeling anxious, depressed, irritable, sad, or downhearted and blue?: Not at all During the past four weeks, has your physical and emotional health limited your social activities with family, friends, neighbors, or groups?: Not at all Sun Exposure: Do you protect yours elf from over exposure to the sun when outdoors?: Yes End of Life Planning: Do you have a living will? : Yes Do you have a Durable Power of Musical Instruments Assembler? : Yes Would you like to discuss this topic tod ay?: Yes Other Providers of Care: Care Team yvette aldridge with patient:: Yes, and updates made in [facility] SDDE Agree to complete So [facility] Determinants of Health questionnaire: Yes Within the past 12 months, did you worry that your food would run out before you got money to buy more?: No Within the past 12 months, did the food you bought just not last and you didn't have money to buy more?: No Within the past 12 months, have you ever stayed: outside, in a car, in a a tent, in an overnight senior living, or temporarily in someone else's home?: No Are you worried about losing your housing?: No Within the past 12 months, have you been able to get utilities (heat, electricity) when it was really needed?: No Within the past 12 months, has a lack of transportation kept you from medical appointments or from doing things needed for daily living?: No Do you feel physically or emotionally unsafe where you currently live?: No Would you like help with any of these needs that you have identified?: No
--- OUTSIDE RECORDS SUMMARY | 2025-06-17 14:46 | XMS_ITS | Encounter Summary ---
Author Organization [facility] Address [address] [place] [address] Care Team Providers Care Document Processing Specialist Name Role Phone Efe Morris MD Primary Care Provider [phone] Source Comments In the event this information is protected by the Federal Confidentiality of Alcohol and Drug AbusePatient Records regulations: The Federal rules restrict any use of the information to criminally investigate or prosecute any alcohol or drug abuse patient.[facility] Encounter Details Date Type Department Care Team (Late st Contact Info) Description 02/14/2018 [facility] [address] [place] [address] Main Perez MD [address] [place] [address] Social History Tobacco Use Types Packs/Day Years [...] on filedocumented in this encounter Care Teams Document Processing Specialist Relationship Specialty Start Date End Date Efe Morris MD PCP - General Family Medicine 11/07/17 documented as of this encounter
--- OUTSIDE RECORDS SUMMARY | 2025-06-17 14:46 | XMS_ITS | Clinical Summary ---
Author Organization [facility] Address [address] [place] [address] Care Team Providers Care Human Resources Intern Name Role Phone Unavailable Primary Care Provider [...] Vaccine (2023-2 5 season) 2024 Influenza Vaccine (#1) 2025 HIB Vaccines Aged Out No longer [...]
--- OUTSIDE RECORDS SUMMARY | 2025-06-17 14:46 | XMS_ITS | Clinical Summary ---
Author Organization Talkable tem Address [id number] [address] [place] [address] Care Team Providers Care Hydroelectric Plant Technician Name Role Phone Efe Morris MD Primary Care Provider [phone] Allergies Active Allergy Reactions Criticality Noted Date [...] mouth nightly as needed for sleep. Active uecyuqsm-jbkg-O A-calcium &mins (THERAGRAN-M) 9 mg iron-400 mcg [...] home PT. Medical Devices Implanted Type Area Tractor Mechanic Apprentice Device Identifier Shelf Expiration Date Model / Serial / Lot Cmnt Bn Bio 40gm Rpl [id number] - Sna - [id number] Implanted:Qty : 2 on 05/07/2020 by Bruno Ortega DO at [facility] Cement Left: Knee [employer] 02/19/2024 [id number] / NA / [id number] Cmpt Fem 9 Std Kn Lt Cr Cmnt - Sna - [id number] Implanted:Qty : 1 on 05/07/2020 by Bruno Ortega DO at [facility] Orthopedic Implant Left: Knee [employer] 09/20/2029 06-6361-868- 01 / NA / [id number] Cmpt Ptlr 32mm Nxgn Alply Rpl [id number] + [id number] + [id number] - Sna - [id number] Implanted:Qty : 1 on 05/07/2020 by Bruno Ortega DO at [facility] Orthopedic Implant Left: Knee [employer] 10/20/2027 24-2528-026- 32 / NA / [id number] Psn Mc Ve Asf L 12mm 8-11/Ef - Sna - [id number] Implanted:Qty : 1 on 05/07/2020 by Bruno Ortega DO at [facility] Orthopedic Implant Left: Knee [employer] 06/20/2024 67-6165-608- 12 / NA / [id number] Bsplt Tib 5d E Kn Lt Cmnt Stm - Sna - [id number] Implanted:Qty : 1 on 05/07/2020 by Bruno Ortega DO at [facility] Plate Left: Knee [employer] 09/20/2027 81-5085-402- 01 / NA / [id number] Explanted Type Area Tractor Mechanic Apprentice Device Identifier Shelf Expiration Date Model / Serial / Lot Scr Bn Arsen 35mm 6.5mm Hip St Rpl [id number] + [id number] + 32 - Sna - [id number] Explanted:Qty: 1 on 05/07/2020 at [facility] Screw Left: Knee [employer] 10/20/2029-6250-06 5-35 / NA / [id number] Scr Bn Arsen 35mm 6.5mm Hip St Rpl [id number] + [id number] + 32 - Sna - [id number] Explanted:Qty: 1 on 05/07/2020 by Bruno Ortega DO at [facility] Screw Left: Knee [employer] 10/18/20296250- 5-35 / NA / [id number] Scr Gd 48mm Qd-Spr Hex Hd Mis - Sna - [id number] Explanted:Qty: 1 on 05/07/2020 at [facility] Screw Left: Knee [employer] 01/18/20305983- 0-48 / NA / [id number] Scr Gd 48mm Qd-Spr Hex Hd Mis - Sna - [id number] Explanted:Qty: 1 on 05/07/2020 by Bruno Ortega DO at [facility] Screw Left: Knee [employer] 09/20/20295983- 0-48 / NA / [id number] Insurance MEDICARE [facility] [place] Advance Directives * Full Code (Latest Code Status on File) Date Activated Date Inactivated Comments 05/07/2020 2:06 PM 05/08/2020 3:38 PM Care Teams Hydroelectric Plant Technician Relationship Specialty Start Date End Date Efe Morris MD PCP - General Family Medicine 04/12/19
--- OUTSIDE RECORDS SUMMARY | 2025-06-17 14:46 | XMS_ITS | Encounter Summary ---
Author Organization [facility] Address [address] [place] [address] Care Team Providers Care Hair Baler Name Role Phone Efe Morris MD Primary Care Provider [phone] Source Comments In the event this information is protected by the Federal Confidentiality of Alcohol and Drug AbusePatient Records regulations: The Federal rules restrict any use of the information to criminally investigate or prosecute any alcohol or drug abuse patient.[facility] Encounter Details Date Type Department Care Team (Late st Contact Info) Description 02/24/2019 Patient Msg Pulmonary Medicine [address] [address] Kristian Ivory [address] [place] [address] scan Social History Tobacco [...] on filedocumented in this encounter Care Teams Hair Baler Relationship Specialty Start Date End Date Efe Morris MD PCP - General Family Medicine 11/07/17 documented as of this encounter
--- OUTSIDE RECORDS SUMMARY | 2025-06-17 14:46 | XMS_ITS | Patient Health Record ---
Author Organization [facility] [place] Address [address] [place] [address] Care Team Providers Care Chocolate Refining Roller Name Role Phone Abhilash Morris Primary Care Provider Allergies Allergen (clinical drug ingredient) Drug/Non Drug Allergy documented on EMR Reaction Allergy Type Onset Date Status Sulfa Unknown Drug Allergy Active Results Component Value Reference Range Notes GLYCOHEMOGLOBIN A1C Reviewed date:04/17/2025 06:13:03 PM Interpretation: Performing Lab: Notes/Report: [facility] , Glycohemoglobin A1C 5.7 4.5-6.2 % ADA RECOMMENDED LIMIT 4.0 - 6.0 ADA THERAPEUTIC TARGET < 7.0 ACTION SUGGESTED > 7.0 Estimated Average Glucose 117 Performing Lab: see note ML - [facility] LB CBC AUTO DIFF Reviewed date:04/17/2025 06:13:03 PM Interpretation: Performing Lab: Notes/Report: [facility] , White Blood Count 6.6 4.0-11.0 [...] 3/uL Performing Lab: see note ML - [facility] LB Occult Blood* Reviewed date:04/18/2025 05:43:17 PM Interpretation: Performing Lab: Notes/Report: [facility] , Occult Blood Positive Performing Lab: see note - [facility] PROF CHEM 8 (BAS METB) Reviewed date:05/05/2025 12:19:42 PM Interpretation: Performing Lab: Notes/Report: [facility] , Sodium 141 136-145 mmol/L Potassium [...] mg/dL Performing Lab: see note ML - [facility] LB TSH Reviewed date:04/17/2025 06:13:03 PM Interpretation: Performing Lab: Notes/Report: [facility] , Thyroid Stimulating Hormone 0.805 0.358-3.740 u IU/mL Performing Lab: see note ML - [facility] LB T4 Reviewed date:04/17/2025 06:13:03 PM Interpretation: Performing Lab: Notes/Report: [facility] , T4 Thyroxine 5.90 4.50-12.10 ug/dL Performing Lab: see note ML - [facility] LB PROF 14(COMP METB) Reviewed date:04/17/2025 06:13:03 PM Interpretation: Performing Lab: Notes/Report: [facility] , Sodium 142 136-145 mmol/L Potassium [...] 1.0 Performing Lab: see note ML - [facility] LB LIPID PROFILE Reviewed date:04/17/2025 06:13:03 PM Interpretation: Performing Lab: Notes/Report: [facility] , Triglycerides 74 <=150 mg/dL Cholesterol [...] >11.0 HIGH RISK Performing Lab: see note ML - The [facility] LB FREE T3 Reviewed date:04/17/2025 06:13:03 PM Interpretation: Performing Lab: Notes/Report: [facility] , Free T3 2.52 2.18-3.98 pg/mL Performing Lab: see note ML - [facility] LB Reason For Referral Diagnosis 1 Cervical radiculopat hy (M54.12) Referral Organization [facility] Referring Provider First Name Abhilash Referring Provider Last Name Arturo [facility] Pain Management, TB Referred Provider Specialty Pain Medicin e Referral Priority Routine Diagnosis 1 Positive occult stoo l blood test (R19.5) Referral Organization [facility] Referring Provider First Name Abhilash Referring Provider Last Name Arturo Referring Provider [facility] monique Referred Provider Obey Mahmood Referred Provider Specialty General Surg michelle Referral Priority Routine Reason seeing him alread Diagnosis 1 Sebaceous cyst (L72. 3) Referral Organization [facility] Referring Provider First Name Abhilash Referring Provider Last Name Arturo Referring Provider [facility] monique Referred Provider Obey Mahmood Referred Provider Specialty General Surg michelle Referral Priority Routine Medications Medication SIG (Take, Route, Frequency, Duration) Notes Start Date End Date Status Triamcinolone Acetonide 0.1 % 1 application Externally Twice a day for 30 06/27/2023 Active Temazepam 15 MG 1 capsule at bedtime as needed Orally dx G47.00 Once a day for 30 days 02/12/2025 Active tiZANidine HCl 4 MG 2 tablets Orally at bedtime for 15 02/07/2024 Active Cervical Traction - Cervical traction 25 pounds - QOD - Dx Cervical radiculpathy for 1 days 04/19/2024 Active Clotrimazole-Betamethasone 1-0.05 % 1 application Externally Twice a day 02/12/2025 Active Dabigatran Etexilate Mesylate 150 MG Oral for 90 Days Active Pravastatin Sodium 40 MG TAKE 1 TABLET B Y MOUTH EVERY DAY for 90 Active Tamsulosin HCl 0.4 MG TAKE 1 CAPSULE BY MOUTH EVERY DAY for 90 days Active Metoprolol Succinate ER 25 MG Oral for 90 Days Active Pantoprazole Sodium 40 MG TAKE 1 TABLET BY MOUTH EVERY DAY for 90 Active Immunizations Vaccine Route Administration Date Status Comme nts Flu, Fluad (70488) 65 yrs + High Dose Seasonal (1264-5579) IM Intramuscular 09/15/2023 Administered Flu, Fluad (08234) 65 yrs and older, single-dose syringe IM Intramuscular 09/26/2024 Administered Tdap Unknown 09/23/2024 Administered Social History AUDIT-C (Standard) Question Answer Notes Did you have a drink containing alcohol in the p ast year? No Points 0 Interpretation Negative Problems Problem Type SNOMED Code ICD Code Onset Dates Problem Status W/U Status Risk Notes Problem Sebaceous cyst (374524224) Sebaceous cyst (L72.3) Active confirmed Problem Impingement syndrome of left shoulder region (914232436194222) Impingement syndrome of left shoulder (M75.42) Active confirmed Problem Atrial fibrillation (29043347) Atrial fibrillation (I48.91) Active confirmed Problem Hypertension (95718452) Hypertension (I10) Active confirmed Problem Gastroesophageal reflux disease (740750421) GERD (gastroesophageal reflux disease) (K21.9) Active confirmed Problem Cervical radiculopat hy (95408230) Cervical radiculopathy (M54.12) Active confirmed Problem Peripheral neuropath y (372016298) Peripheral neuropathy (G62.9) Active confirmed Problem Chronic kidney disea se stage 2 (759298323) Chronic kidney disease, stage II (mild) (N18.2) Active confirmed Problem Insomnia (254121628) Insomnia (G47.00) Active c onfirmed Problem Osteoarthritis of kn ee (068669476) Knee osteoarthritis (M17.9) Active confirmed Problem Benign prostatic hyperplasia (625876341) BPH (benign prostatic hyperplasia) (N40.0) Active confirmed Problem Glaucoma (85129031) Glaucoma (H40.9) Active con firmed Problem 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 Problem Arthralgia (78698979) Arthralgia (M25.50) Active confirmed Problem Angioneurotic edema (53501947) Angioneurotic edema (T78.3XXA) Active confirmed Problem Basal cell carcinoma (1324296) Basal cell carcinoma (C44.91) Active confirmed Problem Acute bronchiolitis (7352280) Acute bronchiolitis (J21.9) Active confirmed Problem hypercholesterolemia (disorder) (93267311) Hypercholesteremia (E78.00) Active confirmed Problem Torticollis (01192725) Spastic t orticollis (M43.6) Active confirmed Problem Disorder of sacrum (92759411) Low back derangement syndrome (M53.86) Active confirmed Problem 829139714 Abnormal finding s on diagnostic imaging of other specified body structures (R93.89) Active confirmed Problem Osteoarthritis of kn ee (062229977) DJD (degenerative joint disease) of knee (M17.10) Active confirmed Vital Signs Temperature 98.2 degrees Fahrenheit 10/04/2024 Blood pressure diastolic 70 mm Hg 06/04/2025 Height 68 in 06/04/2025 Blood pressure systolic 118 mm Hg 06/04/2025 Weight 224.8 lbs 06/04/2025 BMI 34.18 kg/m2 06/04/2025 Encounters Encounter Location Date Provider Diagnosis [address] [address] 06/04/2025 Abhilash Morris Screening for osteop orosis Z13.[address] [address] 04/16/2025 Abhilash Morris Chronic kidney disea se, stage II (mild) N18.2 ; Hypertension I10 ; Hypercholesteremia E78.00 and Polyneuropathy, unspecified G62.9 [place] [address] [place] [address] 04/17/2025 Abhilash Morris Spastic torticollis M43.6 and Elevated BUN R79.[address] [address] 04/18/2025 Abhilash Morris [address] [address] 04/18/2025 Abhilash Morris Positive occult stoo l blood test R19.[address] [address] 05/05/2025 Abhilash Morris [address] [place] [address] 05/08/2025 Abhilash Hoy Hypertension I10 [facility] [address] [place] [address] 06/28/2024 Abhilash Hoy Acute bronchiolitis J21.9 [facility] [address] [place] [address] 10/08/2024 Abhilash Hoy Acute non-recurrent sinusitis, unspecified location J01.90 [facility] [address] [place] [address] 2025 Abhilash Hoy Cervical radiculopat hy M54.12 [facility] [address] [place] [address] 02/12/2025 Abhilash Hoy Hypertension I10 [facility] [address] [place] [address] 03/20/2025 Abhilash Hoy Cervical radiculopat hy M54.12 [facility] [address] [place] [address] 05/03/2025 Abhilash Hoy Sebaceous cyst L72.3 ; Hypertension I10 and Atrial fibrillation I48.91 [facility] [address] [place] [address] 05/08/2025 Abhilash Hoy Hypertension I10 [facility] [address] [place] [address] 09/26/2024 Abhilash Hoy Encounter for immuni zation Z23 [facility] [address] [place] [address] 06/04/2025 Abhilash Hoy Encounter for Medica re annual wellness exam Z00.00 [facility] [address] [place] [address] 10/04/2024 Abhilash Hoy Acute non-recurrent sinusitis, unspecified location J01.90 and Nasal congestion R09.81 [facility] [address] [place] [address] 12/31/2024 Abhilash Hoy Spastic torticollis M43.6 ; Cervical radiculopathy M54.12 and Hypertension I10 [facility] [address] [place] [address] 02/12/2025 Abhilash Morris Hypertension I10 ; G ERD (gastroesophageal reflux [...] vaporizer to help keep the drainage moist. Yvcp-hog-qckgrju Nasal Saline may help the stuffy and runny nose. Use Ibuprofen and or Tylenol as needed for fever, chills, body aches or pain. Children 5 years old should not be given owqb-unx-krnjdrg cough and cold medications such as guaifenesin and dextromethorphan. If you're over age 5, you may try htdw-gzj-dnikfau cold medications such as guaifenesin and dextromethorphan, [...] - N18.2) 04/16/2025 Hypertension (ICD-10 - I10) 06/04/2025 Encounter for Medicare annual wellness exam (ICD-10 - Z00.00) patient was seen today for a subsequent medicare wellness appointment, safety, anxiety, and depression screening was completed without issues, slums memory test was completed and the patient scored 28/30, vision test was completed and the patient cound see with corrected lenses. yearly labs are all up to date,along with immuniazations patient has never had a dexa scan, colonoscopy was completed last week 05/03/2025 Sebaceous cyst (ICD-10 - L72.3) 12/31/2024 Spastic torticollis (ICD-10 - M43.6) 12/31/2024 Cervical radiculopathy (ICD-10 - M54.12) 04/17/2025 Spastic torticollis (ICD-10 - M43.6) 04/18/2025 Positive occult stool blood test (ICD-10 - R19.5) 05/08/2025 Hypertension (ICD-10 - I10) 06/04/2025 Screening for osteoporosis (ICD-10 - Z13.820) 04/17/2025 Elevated BUN (ICD-10 - R79.9) 12/31/2024 Hypertension (ICD-10 - I10) 05/03/2025 Hypertension (ICD-10 - I10) 05/03/2025 Atrial fibrillation (ICD-10 - I48.91) 04/16/2025 Hypercholesteremia (ICD-10 - E78.00) 02/12/2025 Peripheral neuropathy (ICD-10 - G62.9) stable 10/04/2024 Nasal congestion [...] W/AUTO DIFF 04/16/2025 CBC W/AUTO DIFF 04/09/2024 XR DEXA BONE DENSITY 06/04/2025 THYROID PANEL (T4/TSH/FREE T3) THYROID PANEL (T4/TSH/FREE T3) 4 PSA, SCREENING 04/09/2024 Lipid Panel 04/09/2024 Lipid Panel 04/16/2025 Insurance Providers Payer Name Payer Address Payer Phone Subscriber Number Group Number Insured Name Patient Relationship to Insured Coverage Start Date Coverage End Date MEDICARE [place] [address] [place] [address] [id number] López Borjas Self - patient is the insured [facility] SUPPLEMENTAL [employer]URANCE [address] [address] [place] [address] [id number] López Borjas Self - patient is the [...] Fractured sternum 807.2 Surgical History Surgery Date(Month/Year) EGD 05/22/25 colonoscopy 05/22/25 skin cancer removal from left ear BILATERAL BASAL JOINT INJECTONS REVISION LEFT TOTAL ARTHROPL ASTY, PERIARTICULAR INJECTION, PLACEMENT OF CONTINUOUS CATHETER 10/29/2020 RIGHT KNEE PARTIAL MENISCESTOMY 03/2019 HEMORRHOID SURGERY TRIGGER FINGER ROTAR CUFF REPAIR- RIGHT cholecystectomy Colonoscopy Dr Giron 2015 Hospitalization History Reason Date(Month/Year) See above
--- OUTSIDE RECORDS SUMMARY | 2025-06-17 14:46 | XMS_ITS | Encounter Summary ---
Author Organization [facility] Address [address] [place] [address] Phone Care Team Providers Care Hob Mill Operator Name Role Phone Efe Morris MD Primary Care Provider [phone] Encounter Details Date Type Department Care Team (Late Contact Info) Description 04/18/2025 Scanned Document [facility] [address] [place] [id number] Scanning, Generic Provider Social History Tobacco Use [...] Description 01/07/2026 8:40 AM EST Office Visit [place] [address] [place] [id number] Fidelina Albarado MD [address] [facility] [address] [place] [address] documented as of this encounter [...] documented as of this encounter Care Teams Hob Mill Operator Relationship Specialty Start Date End Date Efe Morris MD [address] [facility] [place] [address] PCP - General Family Medicine 03/14/25 documented as of this encounter
--- OUTSIDE RECORDS SUMMARY | 2025-06-17 14:47 | XMS_ITS | Clinical Summary ---
Author Organization [facility] Address [address] [place] [facility] [place] [address] Care Team Providers Care Customer Service Driver Name Role Phone Unavailable Primary Care Provider [...] PCV) 08/21/2018 08/21/2017, 08/01/2017, 06/27/2017 Influenza Vaccine (#1) 2025 2, 09/03/2020, 09/04/2019, Additional history exists Insurance MEDICARE [employer]
--- OUTSIDE RECORDS SUMMARY | 2025-06-17 14:47 | XMS_ITS | Clinical Summary ---
Author Organization [facility] Address [address] [place] [address] Care Team Providers Care Well Puller Head Name Role Phone Efe Morris MD Primary Care Provider [phone] Allergies Active Allergy Reactions Criticality Noted Date [...] 09/24/2022, 03/29/2022, Additional history exists INFLUENZA VACCINE (#1) 2025 2, 09/03/2020, 09/04/2019, Additional history exists RSV VACCINE (1 - 1-dose 75+ series) 2026 HEP B VACCINE Aged Out No longer elig ible based on patient's age to complete this topic Medical Devices Implanted Type Area Marine Pipe Welder Device Identifier Shelf Expiration Date Model / Serial / Lot Palacos R+G 1x40 (Bone Cement) Implanted:Qty: 3 on 10/28/2020 by Barak Fernández MD at [facility] Left: Knee 01/18/2023 [id number] / / [id number] Attune Knee System Revision Crs Rotating Platform Insert Size 7 8mm Aox Implanted:Qty: 1 on 10/28/2020 by Barak Fernández MD at [facility] Left: Knee [employer] 01/18/2025 1517-10-708 / / [id number] Attune Knee System Revision Distal Femoral Augment Implanted:Qty: 1 on 10/28/2020 by Barak Fernández MD at [facility] Left: Knee [employer] 08/20/2029 1547-07-001 / / [id number] Attune Knee System Revision Tibial Base Rotating Platform Size 6 Cemented Implanted:Qty: 1 on 10/28/2020 by Barak Fernández MD at [facility] Left: Knee [employer] 05/20/2029 1506-60-006 / / [id number] Attune Knee System Revision Pressfit Stem 12mm X60mm Implanted:Qty: 1 on 10/28/2020 by Barak Fernández MD at [facility] Left: Knee [employer] 07/21/2030 1513-12-060 / / [id number] Attune Knee System Revision Pressfit Stem 16mm X 110mm Implanted:Qty: 1 on 10/28/2020 by Barak Fernández MD at [facility] Left: Knee [employer] 09/20/2029 1513-16-110 / / [id number] Attune Knee System Revision Tibial Sleeve Porocoat Partially Coated 29mm Implanted:Qty: 1 on 10/28/2020 by Barak Fernández MD at [facility] Left: Knee [employer] 05/20/2029 1511-11-101 / / [id number] Attune Knee System Revision Crs Femoral Size 7 Left Cemented Implanted:Qty: 1 on 10/28/2020 by Barak Fernández MD at [facility] Left: Knee [employer] 11/20/2028 1504-40-107 / / [id number] Attune Knee System Revision Posterior Femoral Augment Size 7 8mm Cemented Implanted:Qty: 1 on 10/28/2020 by Barak Fernández MD at [facility] Left: Knee [employer] 05/20/2030 1549-07-002 / / [id number] Attune Knee System Revision Posterior Femoral Augment Size 7 4mm Cemented Implanted:Qty: 1 on 10/28/2020 by Barak Fernández MD at [facility] Left: Knee [employer] 04/20/2030 1549-07-001 / / [id number] Insurance MEDICARE A AND B MEDICARE SUPPLEMENT Advance Directives For more information, please contact: [phone] (7:30 AM - 6PM [facility], Tuesday-Tuesday) Documents on File Type Date Recorded 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
--- OUTSIDE RECORDS SUMMARY | 2025-06-17 14:47 | XMS_ITS | Clinical Summary ---
Author Organization [facility] Address [address] [place] [address] Care Team Providers Care Assistant Hairstylist Name Role Phone Efe Morris MD Primary Care Provider [phone] Allergies Active Allergy Reactions Criticality Noted Date [...] N ot on file 10/28/2020 Data from: [email or web address] Last address used for calculation Not [...] 2 - PCV) 08/21/2018 08/21/2017, 08/01/2017, 06/27/2017 Advance Directive Discussion 11/21/2024 Influenza Vaccine (#1) 2025 8, 08/24/2017, 09/09/2016 RSV Vaccine (1 - 1-dose 75+ series) 2026 Insurance MEDICARE Care Teams Assistant Hairstylist Relationship Specialty Start Date End Date Efe Morris MD PCP - General Family Medicine 11/07/17
--- OUTSIDE RECORDS SUMMARY | 2025-06-17 14:47 | XMS_ITS | Clinical Summary ---
Author Organization [facility] Address [address] [place] [address] Phone Care Team Providers Care Second Baller Name Role Phone Efe Morris MD Primary Care Provider [phone] Allergies Active Allergy Reactions Criticality Noted Date [...] mg) by mouth early in the morning.. 5 Active temazepam (Restoril) 15 mg capsule Take 10 mg by mouth as needed at bedtime for sleep. 5 Active dabigatran etexilate (Pradaxa) 150 mg capsuleIndicatio ns:Paroxysmal atrial fibrillation (Multi) Take 1 capsule (150 mg) by mouth 2 times a day. Do not crush or chew. 180 capsule 3 5 04/09/20 Active metoprolol succinate XL (Toprol-XL) 25 mg 24 hr tabletIndication s:Paroxysmal A-fib (Multi) Take 1 tablet (25 mg) by mouth once daily. Do not crush or chew. 90 tablet 3 5 04/16/20 26 Active flecainide (Tambocor) 50 mg tabletIndication s:Paroxysmal atrial fibrillation (Multi) Take 1 tablet (50 mg) by mouth 2 times a day. 180 tablet 3 5 05/02/20 26 Active Active Problems Problem Noted Date Diagnosed [...] Type Department Care Team Description 05/13/[address] [address] Julissa Alonso LPN med hold 05/09/2025 10:00 AM EDT Ancillary Procedure [address] [facility] [address] [place] [address] Paroxysmal atrial fibrillation (Multi) 05/08/2025 Travel 05/02/2025 11:30 AM EDT Office Visit [address] [place] [address] Fidelina Albarado MD Paroxysmal atrial fibrillation (Multi); High risk medication use; Encounter to discuss test results; Essential hypertension; Mixed hyperlipidemia; BMI 34.0-34.9,adult; Former smoker 05/02/2025 Travel 04/28/2025 Travel 04/19/[address] [address] Rafaela Tabares LPN Results 04/19/2025 Orders Only [facility] [address] [place] [address] Naty Foley, JEWELRY MAKER-DIVISION DIRECTOR 04/18/2025 Scanned Document [facility] [address] Virtual Department [place] [id number] Scanning, Generic Provider 04/18/2025 Orders Only [facility] [address] [place] [address] Naty Foley, JEWELRY MAKER-DIVISION DIRECTOR 04/16/[address] [address] Rafaela Tabares LPN Paroxysmal A-fib (Multi) 03/28/[address] [address] Rafaela Tabares LPN Paroxysmal atrial fibrillation (Multi) (Primary Dx) 03/26/2025 8:00 AM EDT Ancillary Procedure [address] [place] [address] [place] [address] Palpitations 03/26/2025 Documentation [facility] [address] [place] [address] Teresa Polanco MA 03/26/2025 Orders Only [facility] [address] [place] [address] Naty Foley JEWELRY MAKER-DIVISION DIRECTOR 03/26/2025 Travel 03/18/2025 9:30 AM EDT Office Visit [place] [address] [facility] [address] [place] [address] Naty Foley, JEWELRY MAKER-DIVISION DIRECTOR Dyspnea on exertion (Primary Dx); Palpitations; Abnormal EKG; Other fatigue; BMI 35.0-35.9,adult; Mixed hyperlipidemia; Essential hypertension 03/18/2025 Telephone [facility] [address] [facility] [address] [place] [address] Naty Foley JEWELRY MAKER-DIVISION DIRECTOR 03/18/2025 Travel from Last 3 Months Immunizations [...] Description 01/07/2026 8:40 AM EST Office Visit [place] [address] [place] [address] Fidelina Albarado MD [address] [facility] [address] [place] [address] [place] [address] Health Maintenance Due Date Last [...] 2024 09/22/2023, 09/24/2022, 03/29/2022, Additional history exists Influenza Vaccine (#1) 2025 09/21/2024 Colonoscopy 07/25/2029 07/25/2019 Colorectal Cancer Screening 07/25/2029 DTaP/Tdap/Td Vaccines (2 - Td or Tdap) 09/23/2034 09/23/2024 HIB Vaccines Aged Out No longer eligi [...] Fidelina Albarado MD ECG ORDERABLES Final Result [facility] * NM myocardial perfusion planar S and R w EF and WM (04/19/2025 1:22 PM EDT) Anatomical Region Laterality Modality Head neck Nuclear Medicine 04/19/2025 1:22 PM EDT Narrative 04/19/2025 1:25 PM EDT [facility] Main [place] [address] [place] [address] Nuclear Medicine Report Signed Patient: López Borjas MR#: [id number] : 1950 Acct:[id number] Age/Sex: 75 / M ADM Date: 04/18/25 Loc: Room: Type: [facility] Attending Dr: Naty Foley JEWELRY MAKER Copies to: GLORIA Domínguez MD Ordering Provider: Naty Foley APRN Date of Service: 04/18/25 NM/NM katya perf SPECT rest str: SOB NUCLEAR MYOCARDIAL PERFUSION DATE OF PROCEDURE: 04/09/2025 ATTENDING VAULT PERSON: Dr. Epi Paredes REQUESTING PHYSICIAN: Steffanie Foley [...] Paredes M.D. 04/19/2025 1:23 PM Dictation Location: [place] [address] Transcribed By: TANO 04/19/25 1323 Dictated By: Eip Paredes MD 04/19/25 1322 Signed By: <Electronically signed by Epi Paredes MD in OV> 04/19/25 1323 us Naty Foley JEWELRY MAKER-DIVISION DIRECTOR IMG NM PROCEDURES Final R esult * Echocardiogram (04/18/2025 10:19 AM EDT) 04/18/2025 10:1 9 AM EDT [facility] - 04/18/2025 6:41 PM EDT [facility] [place] [address] Echocardiogram Signed Patient: López Borjas MR#: [id number] : 1950 Acct:[id number] Age/Sex: 75 / M ADM Date: 04/18/25 Loc: Room: Type: [facility] Attending Dr: Naty Foley JEWELRY MAKER Ordering Provider: Naty Foley APRN Date of [...] 1019 Signed By: Epi Paredes MD 04/18/25 4781 us Naty Foley APRN-DIVISION DIRECTOR CV ECHO PROCEDURES Final Result [facility] [place] [address], [place] * (ABNORMAL) [facility] Complete Blood Count Auto Diff (04/18/2025 8:40 AM EDT) Only the most recent of2 resultswithin the time period is included. [facility] White Blood Count 7.4 4.1 - 10.5 10*3/uL [facility] HIE Uncorrected WBC 7.4 4.1 - 10.5 10*3/uL [facility] HIE Red Blood Count 5.15 3.90 - 5.60 10*6/uL [facility] HIE Hemoglobin 16.5 13.0 - 17.0 g/dL [facility] HIE Hematocrit 48.5 38.8 - 50.0 % [facility] H[facility] Mean Corpuscular Volume 94.3 83.5 - 101 fL [facility] H[facility] Mean Corpuscular Hemoglobin 32.0 27.5 - 35.2 pg [facility] H[facility] Mean Corpuscular HGB Conc 33.9 32.5 - 35.6 g/dL [facility] Red Cell Distribution Width 14.0 12.0 - 14.8 % [facility] Platelet Count 213 150 - 450 10*3/uL [facility] Mean Platelet Volume 9.0 6.6 - 10.1 fL [facility]IE Neutrophils % (Auto) 68.1 . % [facility] Lymphocytes % (Auto) 17.0 . % [facility] Monocytes % (Auto) 11.6 . % [facility] Eosinophils % (Auto) 2.6 . % [facility] Basophils % (Auto) 0.7 . % [facility] NRBC% 0.1 0 - 0.5 /100{WBC} [facility] Neutrophils # (Auto) 5.0 1.8 - 7.7 10*3/uL [facility] Lymphocytes # (Auto) 1.3 1.00 - 4.8 10*3/uL [facility] Monocytes # (Auto) 0.9(H) 0.0 - 0.8 10*3/uL [facility] Eosinophils # (Auto) 0.2 0.0 - 0.45 10*3/uL [facility] Basophils # (Auto) 0.1 0.0 - 0.2 10*3/uL [facility] Comment:PERFORMED BY:[facility] [place], [place] [phone] MEDICAL DIRECTORAMBROSE OLSON M.D. [facility] Whole blood specimen 04/18/2025 8:40 AM EDT us Naty Foley JEWELRY MAKER-DIVISION DIRECTOR LAB BLOOD ORDERABLES Anabella velarde Result [facility] [address] [place] [address], [facility] [address] [place] [address] * (ABNORMAL) [facility] H[facility] Lipid Panel (04/18/2025 8:40 AM EDT) Only the most recent of2 resultswithin the time period is included. [facility] HIE Cholesterol 127(L) 140 - 200 mg/dL [facility] Comment:Chol less than 200 m g/dl low risk Chol 201-239 mg/dl borderline risk Chol 240 mg/dl and greater high risk NON-[facility] HIE HDL Cholesterol 42 23 - 92 mg/dL [facility] Comment:HDL CHOL ATP-III CLA SSIFICATION Cardiovascular Risk HDL > or equal to 60 mg/dL LOW HDL < 40 mg/dL HIGH NON-[facility] HIE Triglyceride w/Reflex 89 0 - 149 mg/dL [facility] Comment:TRIG ATP III CLASSIF ICATION TRIG less than 150 mg/dL Normal TRIG 150-199 mg/dL Borderline high TRIG 200-500 mg/dL High TRIG greater than 500 mg/dL Very high Standard traceable to the Center for Disease Conrtrol and Prevention (CDC) test method. [facility] HIE LDL Cholesterol,Calcula zackary 67 0 - 100 mg/dL [facility] Comment:LDL ATP III CLASSIFI CATION LDL less than 100 mg/dL Optimal LDL 100-129 mg/dL Near or above optimal LDL 130-159 mg/dL Borderline high LDL 160-189 mg/dL High LDL greater than 189 mg/dL Very high NON-[facility] HIE VLDL CHOLESTEROL 17 mg/dL [facility] HIE Chol/HDL Ratio 3.0 <5.0 [facility] Comment:PERFORMED BY:[facility] [facility], [place] [phone] MEDICAL DIRECTORAMBROSE OLSON M.D. [facility] Plasma specimen or serum specimen or whole blood specimen 04/18/2025 8:40 AM EDT Naty Foley JEWELRY MAKER-DIVISION DIRECTOR LAB BLOOD ORDERABLES Anabella l Result [facility] [address] [place] [address], [facility] [address] [place] [id number] * NON-[facility] HIE Aspartate Amino Transferase (04/18/2025 8:40 AM EDT) Only the most recent of2 resultswithin the time period is included. [facility] HIE Aspartate Amino Transferase 30 13 - 39 U/L [facility] Plasma specimen or serum specimen or whole blood specimen 04/18/2025 8:40 AM EDT Naty Foley JEWELRY MAKER-DIVISION DIRECTOR LAB BLOOD ORDERABLES Anabella l Result Performing Organization Address [facility] Co de Phone Number [facility] [address] [place] [address], [facility] [address] [place] [address] * NON-[facility] HIE Alanine Aminotransferase (04/18/2025 8:40 AM EDT) Only the most recent of2 resultswithin the time period is included. [facility] HIE Alanine Aminotransferase 27 7 - 52 U/L [facility] Plasma specimen or serum specimen or whole blood specimen 04/18/2025 8:40 AM EDT Naty Foley JEWELRY MAKER-DIVISION DIRECTOR LAB BLOOD ORDERABLES Anabella l Result [facility] [address] [place] [address], [facility] [address] [place] [address] * Nuclear Stress Test - Onbase Scan [...] Basic Metabolic Panel (03/26/2025 9:09 AM EDT) [facility] HIE Glucose 100 70 - 100 mg/dL [facility] Comment:Random Glucose Refer ence Range is dependent on time and content of last meal. Glucose of more than 200 mg/dL in a nonstressed, ambulatory subject supports the diagnosis of Diabetes Mellitus. ADA recommended reference range NON-[facility] HIE Blood Urea Nitrogen 24 7 - 25 mg/dL [facility] NON-[facility] HIE Creatinine 1.42(H) 0.70 - 1.30 mg/dL [facility] NON-[facility] HIE ESTIMATED GFR 51.852 mL/Min [facility] HIE Sodium 139 136 - 145 mmol/L [facility] HIE Potassium 4.7 3.5 - 5.1 mmol/L [facility] HIE Chloride 105 98 - 107 mmol/L [facility] HIE Carbon Dioxide 27.4 21.0 - 31.0 mmol/L [facility] HIE Anion Gap 11.3 6.0 - 15.0 meq/L [facility] HIE Calcium 9.0 8.6 - 10.3 mg/dL [facility] Plasma specimen or serum specimen or whole blood specimen 03/26/2025 9:09 AM EDT Naty Foley APRN-DIVISION DIRECTOR LAB BLOOD ORDERABLES Anabella l Result [facility] [address] [place] [address], [facility] [address] [place] [address] * CARDIAC EVENT MONITOR CONTINUOUS UP TO [...] in most of the recordings Naty Foley APRN-DIVISION DIRECTOR CV CARDIAC SERVICES [facility] EMI Final Result Performing Organization Address City/[facility] Co de Phone Number [facility] from Last 3 Months Insurance MEDICARE PART A AND B AET SENIOR SUPPLEMENT MEDICARE PART A AND B AET SENIOR SUPPLEMENT Care Teams Second Baller Relationship Specialty Start Date End Date Efe Morris MD [address] [place] [address] PCP - General Family Medicine 03/14/25
--- OUTSIDE RECORDS SUMMARY | 2025-06-17 14:47 | XMS_ITS | Clinical Summary ---
Author Organization [facility] Address [address] [facility], [address] [place] [address] Care Team Providers Care Build Manager Name Role Phone Efe Morris MD Primary Care Provider [phone] Allergies Active Allergy Reactions Criticality Noted Date [...] Not on file Insurance MEDICARE [employer] MED[employer] Member Subscriber Plan / Payer ( fective 2014-Present) Name:Mark Borjasryl Relation to Subscriber:Self Name:López Borjas Payer ID:Not on file Group ID:Not on file Type:Not on file Address: [place] [id number] [employer] [place] [place] [id number] [employer] Care Teams Build Manager Relationship Specialty Start Date End Date Efe Morris MD [address] [place] [address] PCP - General Family Medicine 10/25/17
== END 2025-06-17 14:45 | disposition home or self-care (01) ==
LOC: RAD 14:44
PROVIDERS: PCP Family Medicine; Visit Provider Family Medicine
DX: M81.0 Age-related osteoporosis without current pathological fracture (principal)
CPT/HCPCS: 77080

== ENCOUNTER 2025-07-31 13:45 | Outpatient (OUT) | payer MEDICARE, OTHER, SELFPAY ==
--- OUTSIDE RECORDS SUMMARY | 2025-06-04 04:58 | XMS_ITS ---
Author Organization [facility] [place] Address [address] [place] [address] Care Team Providers Care Mixing Supervisor Name Role Phone Arturo Abhilash Primary Care Provider [phone] REASON FOR VISIT medicare wellness Encounters Encounter Location Date Provider Diagnosis [facility] [address] [facility] [place] [address] 06/04/2025 Abhilash Elanzack Screening for osteoporosis Z13.820 Assessments Encounter Date Diagnosis (ICD Code) Assessment Notes Treatment Notes Treatment Clinical Notes Section Notes 06/04/2025 Screening for osteoporosis (ICD-10 - Z13.820) Plan Of Treatment Pending Test Test Name Order Date XR DEXA BONE DENSITY 06/04/2025 Progress Notes * López BORJAS PDOB:[birth year] (75 yo M)Acc No.[id number]:06/04/2025 Patient: Ruby REHMAN López Moreno :1950 A ge:75 Y S ex:Male Address:[address] [place] [address], [phone] Subjective: * Chief Complaints: * M edicare wellness * Medical History: * Surgical History: * Hospitalization/Major Diagno stic Procedure: * Medications: Objective: * Vitals: * Physical Examination: Assessment: * Assessment: 1. S creening for osteoporosis - Z13.820 (Primary) Plan: * Treatment: * Procedure Codes: * true * Date: Generated for Printi ng/Faxing/Matthew on: 0 07/31/2025 01:50 PM EDT
--- OUTSIDE RECORDS SUMMARY | 2025-06-04 05:00 | XMS_ITS ---
Author Organization [facility] [place] Address [address] [place] [address] Care Team Providers Care Boiler Tube Reamer Name Role Phone Abhilash Morris Primary Care Provider [phone] Allergies Allergen (clinical drug ingredient) Drug/Non Drug [...] 06/04/2025 Encounters Encounter Location Date Provider Diagnosis [facility] [address] [place] [address] 06/04/2025 Abhilash Ansarizack Encounter for Medica annual [...] Of Treatment No Information Progress Notes * MOOFrancisco Javier LOPEZl PDOB:[birth year] (75 yo M)Acc No.[id number]:06/04/2025 Progress Note Patient: López ROBLERO Provider: Lashae Morris ([facility])MD :1950 A ge:75 Y S ex:Male Date:06/04/2025 Address:[address] [place], [place] [id number] Check In:08:37 AM ESTCheck O ut:09:13 AM EST Subjective: * Chief Complaints: * s ubsequent Medicare Wellness * HPI: M edicare Annual Wellness Visit: Type of Visit: S ubsequent Annual Wellness Visit (SAWV).? Visual Acuity: N /A. Other Providers of Care: C are Team reviewed with patient: Zack josé manuel, and updates made in [place] of Care Physical Activity: D o you [...] o you have a Durable Power of Tailor Fitter? Y es W ould you like to [...] in a a tent, in an overnight mcfp, or temporarily in someone else's home??No A [...] that you have identified? N o * Active Problem List M75.42 Impingement syndrome of left shoulder Modified On:02/28/2024U Status:confirmed I10 Hypertension Modified On:02/07/2024U Status:confirmed K21.9 GERD (gastroesophage al reflux disease) Modified On:06/27/2023U Status:confirmed G62.9 Peripheral neuropath y Modified On:06/27/2023 Status:confirmed N18.2 Chronic kidney disea se, stage II (mild) Modified On:02/28/2024 Status:confirmed G47.00 Insomnia Modified On:06/27/2023 Status:confirmed M17.9 Knee osteoarthritis Modified On:06/27/2023 Status:confirmed N40.0 BPH (benign prostati c hyperplasia) Modified On:06/27/2023 Status:confirmed H40.9 Glaucoma Modified On:06/27/2023 Status:confirmed K22.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 Modified On:06/27/2023 Status:confirmed M25.50 Arthralgia Modified On:06/27/2023 Status:confirmed T78.3XXA Angioneurotic edema Modified On:06/27/2023 Status:confirmed E78.00 Hypercholesteremia Modified On:06/27/2023 Status:confirmed M17.10 DJD (degenerative brittnee int disease) of knee Modified On:06/27/2023 Status:confirmed J21.9 Acute bronchiolitis Modified On:01/19/2024 Status:confirmed M43.6 Spastic torticollis Modified On:02/07/2024 Status:confirmed M53.86 Low back derangement syndrome Modified On:02/23/2024 Status:confirmed R93.89 Abnormal findings on diagnostic imaging of other specified body structures Modified On:03/02/2024 Status:confirmed C44.91 Basal cell carcinoma Modified On:03/06/2024 Status:confirmed M54.12 Cervical radiculopat hy Modified On:04/19/2024 Status:confirmed L72.3 Sebaceous cyst Modified On:05/03/2025 Status:confirmed I48.91 Atrial fibrillation Modified On:05/03/2025 Status:confirmed * Medical History: * Surgical History: C olonoscopy Dr Giron 2015cholecystectomy ROTAR CUFF REPAIR- RIGHT TRIGGER FINGER HEMORRHOID SURGERY RIGHT KNEE PARTIAL MENISCESTOMY 03/2019REVISION LEFT TOTAL ARTHROPLASTY, PERIARTICULAR INJECTION, PLACEMENT OF CONTINUOUS CATHETER 10/29/2020BILATERAL BASAL JOINT INJECTONS kin cancer removal from left ear colonoscopy 05/22/25EGD 05/22/25 * Hospitalization/Major Diagno stic Procedure: S ee above * Family History: F ather: . M [...] I nterpretation N egative * Medications: T akingCervical Traction - Kit Cervical traction 25 pounds - QOD - Dx Cervical radiculpathy Clotrimazole-Betamethasone 1-0.05 % Cream 1 application Externally Twice a day Dabigatran Etexilate Mesylate 150 MG Capsule Oral Metoprolol Succinate ER 25 MG Tablet Extended Release 24 Hour Oral Pantoprazole Sodium 40 MG Tablet Delayed Release TAKE 1 TABLET BY MOUTH EVERY DAY Pravastatin Sodium 40 MG Tablet TAKE 1 TABLET BY MOUTH EVERY DAY Tamsulosin HCl 0.4 MG Capsule TAKE 1 CAPSULE BY MOUTH EVERY DAY Temazepam 15 MG Capsule 1 capsule at bedtime as needed Orally dx G47.00 Once a day tiZANidine HCl 4 MG Tablet 2 tablets Orally at bedtime Triamcinolone Acetonide 0.1 % Cream 1 application Externally Twice a day Medication List reviewed and reconciled with the patientTaking Cervical Traction - Kit Cervical traction 25 pounds - QOD - Dx Cervical radiculpathy Taking Clotrimazole-Betamethasone 1-0.05 % Cream 1 application Externally Twice a day Taking Dabigatran Etexilate Mesylate 150 MG Capsule Oral Taking Metoprolol Succinate ER 25 MG Tablet Extended Release 24 Hour Oral Taking Pantoprazole Sodium 40 MG Tablet Delayed Release TAKE 1 TABLET BY MOUTH EVERY DAY Taking Pravastatin Sodium 40 MG Tablet TAKE 1 TABLET BY MOUTH EVERY DAY Taking Tamsulosin HCl 0.4 MG Capsule TAKE 1 CAPSULE BY MOUTH EVERY DAY Taking Temazepam 15 MG Capsule 1 capsule at bedtime as needed Orally dx G47.00 Once a day Taking tiZANidine HCl 4 MG Tablet 2 tablets Orally at bedtime Taking Triamcinolone Acetonide 0.1 % Cream 1 application Externally Twice a day Medication List reviewed and reconciled with the patient * Allergies: S abida[Allergies Verified] Objective: * Vitals: W t:224.8lbs, Ht: 68 in, BP:118/70mm Hg, BMI:34.18Index, Ht-cm: 172.72 cm, Wt-k.97 kg. Assessment: * Assessment: 1. E freeman neosho hospitaler for Medicare annual wellness exam - Z00.00 [...] WELLNESS, SUBSEQ * Preventive Medicine: Screenings/Counseling: B [place] ACTION PLAN Above Normal BMI Follow-up D ietary management education, guidance, and counseling F ALL RISK SCREENING Fall Risk Assessment: N o falls in the past year Are you afraid of falling? N o * * Sign off status: Completed Visit Status: C HK (Check Out) true * Provider: Lashae Morris ([facility])MD Date: 0 06/04/2025 Generated for Christinei hossein/Adriana/eTransmitting on: 0 07/31/2025 01:50 PM EDT History and Physical Notes * [...] Do you have a Durable Power of Tailor Fitter? : Yes Would you like to discuss this topic tod ay?: Yes Other Providers of Care: Care Team yvette aldridge with patient:: Yes, and updates made in [place] [facility] SDSD Agree to complete So [facility] Determinants of Health questionnaire: Yes Within [...] in a a tent, in an overnight mcfp, or temporarily in someone else's home?: No [...]
--- OUTSIDE RECORDS SUMMARY | 2025-07-01 11:27 | XMS_ITS ---
Author Organization [facility] [place] Address [address] [place] [address] Care Team Providers Care Email Campaign Manager Name Role Phone Abhilash Morris Primary Care Provider [phone] REASON FOR VISIT Needs yearly Encounters Encounter Location Date Provider Diagnosis [facility] [address] [place] [address] 07/01/2025 Abhilash Morris Plan Of Treatment No Information Progress Notes * López BORJAS PDOB:[birth year] (75 yo M)Acc No.[id number]:07/01/2025 Patient: Ruby SCOTTERICALópez :1950 A ge:75 Y S ex:Male Address:[address] [place] [phone] * true * Date: Generated for Christinei hossein/Adriana/eTransmitting on: 0 07/31/2025 01:50 PM EDT
--- OUTSIDE RECORDS SUMMARY | 2025-07-30 05:00 | XMS_ITS ---
Author Organization [facility] in [place] Address [address] [place] [address] Care Team Providers Care Insulation Blower Name Role Phone Abhilash Morris Primary Care Provider Allergies Allergen (clinical drug ingredient) Drug/Non Drug Allergy documented on EMR Reaction Allergy Type Onset Date Status Sulfa Unknown Drug Allergy Active REASON FOR VISIT Presents to office with for yearly check up Medications Medication SIG (Take, Route, Frequency, Duration) Notes Start Date End Date Status Dabigatran Etexilate Mesylate 150 MG Oral for 90 Days Active Clotrimazole-Betamethasone 1-0.05 % 1 application Externally Twice a day 02/12/2025 Active Flecainide Acetate 50 MG as directed Orally Active Tamsulosin HCl 0.4 MG TAKE 1 CAPSULE BY MOUTH EVERY DAY for 30 days Active Temazepam 15 MG 1 capsule at bedtime as needed Orally dx G47.00 Once a day for 30 days 02/12/2025 Active Pantoprazole Sodium 40 MG TAKE 1 TABLET BY MOUTH EVERY DAY for 90 Active Pravastatin Sodium 40 MG TAKE 1 TABLET B Y MOUTH EVERY DAY for 90 days Active Metoprolol Succinate ER 25 MG Oral for 90 Days Active Social History AUDIT-C (Standard) Question Answer Notes Did you have a drink containing alcohol in the p ast year? No Points 0 Interpretation Negative Vital Signs Weight 229.6 lbs 07/30/2025 Height 68 in 07/30/2025 Blood pressure systolic 132 mm Hg 07/30/20 25 Blood pressure diastolic 82 mm Hg 025 BMI 34.91 kg/m2 07/30/2025 Encounters Encounter Location Date Provider Diagnosis [facility] [address] [place] [address] 07/30/2025 Abhilash Morris Hypertension I10 ; G ERD (gastroesophageal reflux disease) K21.9 ; Chronic kidney disease, stage II (mild) N18.2 and BPH (benign prostatic hyperplasia) N40.0 Assessments Encounter Date Diagnosis (ICD Code) Assessment Notes Treatment Notes Treatment Clinical Notes Section Notes 07/30/2025 Hypertension (ICD-10 - I10) 07/30/2025 GERD (gastroesophageal reflux disease) (ICD-10 - K21.9) 07/30/2025 Chronic kidney disease, stage II (mild) (ICD-10 - N18.2) 07/30/2025 BPH (benign prostatic hyperplasia) (ICD-10 - N40.0) Plan Of Treatment Pending Test Test Name Order Date PSA, SCREENING 07/30/2025 CMP (COMP MET OQUENDO) w/eGFR CKD-EPI 2024 Progress Notes * Francisco Javier CORTÉSl PDOB:[birth year] (75 yo M)Acc No.[id number]:07/30/2025 UNLOCKED PROGRESS NOTE Progress Note Patient: López ROBLERO Provider: Lashae Morris ([facility])MD :1950 A ge:75 Y S ex:Male Date:07/30/2025 Address:[address] [place], [place] [id number] Check In:08:39 AM ESTCheck O ut:09:35 AM EST Subjective: * Chief Complaints: * 1 . Presents to office with for yearly check up. * HPI: G eneral: Disucssed cance in er - refert to [facility] for [facility] surgeon CAD - no chest pain GERD - on meds - stabl BPH - up nce a night. * ROS: E ENT: hearing changes d enies. v isual changes d enies.?non-healing mouth sores d enies. s wollen glands or neck lumps d enies. h oarseness d enies. s ore throat d enies. d ifficulty swallowing d enies. n ose bleeds d enies. n margoth congestion d enies. e ar ache d enies. e ar discharge?denies. r inging in ears d enies. l ight sensitivity d enies. e ye pain d enies. b lurring d enies. e ye irritation d enies. d ouble vision d enies.?vision loss d enies. G eneral/Constitutional: Sweats: D enies. F atigue d enies. S leep problems d enies. A norexia d enies. M alaise d enies. W eight loss d enies.?Fatigue or Weakness d enies. F ever or Chills d enies. C ardiovascular: Shortness of Breath w/lying flat d enies. L ightheadedness/dizziness d enies. C hest tightness/ heavy pressure d enies. S welling of legs, ankles, or feet d enies. W aking up with shortness of breath d enies. C hest pain denies. P alpitations d enies. W eight gain d enies. R espiratory: Chronic or frequent cough d enies. C oughing up blood?denies. D ifficulty breathing d enies. P roductive cough d enies. S noring?denies. S hortness of breath that awakens from sleep (PND) d enies. C hest pain d enies. S putum production d enies. W heezing d enies. M usculoskeletal: Joint pain d enies. J oint Fluid d enies. B ack pain d enies. K nee pain d enies. N marsha pain d enies. J oint Stiffness d enies. M uscle cramps d enies. W eakness of muscles d enies. A rthritis d enies. M uscle aches d enies. P ain in shoulder(s) d enies. S wollen joints d enies. * Medical History: P eripheral neuropathy, Impingement syndrome of left shoulder, Chronic kidney disease, stage II (mild), Arthralgia, Conjunctival hemorrhage, BPH (benign prostatic hyperplasia), Terrazas esophagus, DJD (degenerative joint disease) of knee, Angioneurotic edema, Shoulder impingement syndrome, Knee osteoarthritis, GERD (gastroesophageal reflux disease), Insomnia, Hypertension, Trigger middle finger of right hand, Glaucoma, Hypercholesteremia, Fractured sternum. * Surgical History: C olonoscopy Dr Giron 2015, cholecystectomy , ROTAR CUFF REPAIR- RIGHT , TRIGGER FINGER , HEMORRHOID SURGERY , RIGHT KNEE PARTIAL MENISCESTOMY 03/2019, REVISION LEFT TOTAL ARTHROPLASTY, PERIARTICULAR INJECTION, PLACEMENT OF CONTINUOUS CATHETER 10/29/2020, BILATERAL BASAL JOINT INJECTONS , skin cancer removal from left ear , colonoscopy 05/22/25, EGD 05/22/25, Basal Cell Excision- left ear 06/18/25. * Hospitalization/Major Diagno stic Procedure: S ee [...] nterpretation N egative * Medications: T aking Clotrimazole-Betamethasone 1-0.05 % Cream 1 application Externally Twice a day , Taking Dabigatran Etexilate Mesylate 150 MG Capsule Oral , Taking Flecainide Acetate 50 MG Tablet as directed Orally , Taking Metoprolol Succinate ER 25 MG [...] Orally dx G47.00 Once a day , Discontinued Cervical Traction - Kit Cervical traction 25 pounds - QOD - Dx Cervical radiculpathy , Discontinued tiZANidine HCl 4 MG Tablet 2 tablets Orally at bedtime , Discontinued Triamcinolone Acetonide 0.1 % Cream 1 application Externally Twice a day , Medication List reviewed and reconciled with the patient * Allergies: S ulfa. Objective: * Vitals: W t:229.6lbs, Ht: 68 in, BP:132/82mm Hg, BMI:34.91Index, Ht-cm: 172.72 cm, Wt-k.15 kg. * Examination: P hysical Exam: GENERAL: w ell developed, well nourished, in no acute distress. HEAD: n ormocephalic/atraumatic. EYES: p upils equal, round and reactive to light, conjunctivae and sclerae normal. EARS: n o deformity or lesion of external ear, canals and TM appear normal bilaterally, TM's intact, not inflamed with normal light reflex, hearing grossly normal to conversational speech. NOSE: n o deformity, discharge, inflammation, or lesions.? MOUTH: m ucous membranes moist, normal oropharynx and posterior pharynx without lesions or exudates, tongue normal, dentition normal. NECK: n marsha supple, no masses or palpable cervical nodes, trachea midline, thyroid without nodules, masses, tenderness, or enlargement. CHEST: n o chest wall deformity, no chest wall tenderness.? LUNGS: n ormal respiratory effort and clear to auscultation, no wheezes, rales, or rhonchi, good air exchange. CARDIO: r egular rate and rhythm, normal S1 and S2, nor murmur, rub, or gallop. PULSES: n ormal capillary refill. ABDOMEN: s oft, non-distended, non-tender, no masses. MUSCULOSKELETAL: n o deformity or scoliosis noted, normal range of motion, joints normal, no erythema, edema, effusion, or ecchymosis. EXTREMITY: n o clubbing, cyanosis, edema, or deformity with normal ROM in both upper and lower bilateral extremities. NEUROLOGIC: g rossly normal. SKIN: n o rashes, ulcerations, or suspicious lesions. LYMPH NODES: n o cervical adenopathy, nodes normal. MENTAL STATUS: a lert and oriented x3, normal mood and affect. Assessment: * Assessment: 1. H ypertension - I10 (Primary) 2 . G ERD (gastroesophageal reflux disease) - K21.9 3 . C hronic kidney disease, stage II (mild) - N18.2 4 . B PH (benign prostatic hyperplasia) - N40.0 Plan: * Treatment: 2. G ERD (gastroesophageal reflux disease) L AB: PSA, SCREENING L AB: CMP (COMP MET OQUENDO) w/eGFR CKD-EPI 3. C hronic kidney disease, stage II (mild) L AB: PSA, SCREENING L AB: CMP (COMP MET OQUENDO) w/eGFR CKD-EPI 4. B PH (benign prostatic hyperplasia) L AB: PSA, SCREENING L AB: CMP (COMP MET OQUENDO) w/eGFR CKD-EPI * Preventive Medicine: Screenings/Counseling: B [place] ACTION PLAN Above Normal BMI Follow-up D ietary management education, guidance, and counseling See treatment section of progress note for complete details of management plan. F ALL RISK SCREENING Fall Risk Assessment: N o falls in the past year * * Electronic signature of Abhilash Morris MD, [phone] on 07/31/2025 at 01:51 PM EDT Sign off status: Pending Visit Status: Lyle MANRIQUE (Check Out) * Provider: Lashae Morris ([facility])MD Date: 07/30/2025 Generated for Printi ng/Faxing/eTransmitting on: 0 07/31/2025 01:51 PM EDT History and Physical Notes * HPI (History of Present Illness) Category Sub-Category Detail Notes Category Not es General Disucssed cance in er - refert to [facility] derm for [facility]s surgeon CAD - no chest pain GERD - on meds - stabl BPH - up nce a night Examination Category Sub-Category Detail Notes Category Not es Physical Exam GENERAL: well developed, well nourished, in no acute distress HEAD: normocephalic/atraum atic EYES: pupils equal, round and reactive to light, conjunctivae and sclerae normal EARS: no deformity or lesi on of external ear, canals and TM appear normal bilaterally, TM's intact, not inflamed with normal light reflex, hearing grossly normal to conversational speech NOSE: no deformity, discha rge, inflammation, or lesions MOUTH: mucous membranes vitor st, normal oropharynx and posterior pharynx without lesions or exudates, tongue normal, dentition normal NECK: neck supple, no mass es or palpable cervical nodes, trachea midline, thyroid without nodules, masses, tenderness, or enlargement CHEST: no chest wall deform ity, no chest wall tenderness LUNGS: normal respiratory e ffort and clear to auscultation, no wheezes, rales, or rhonchi, good air exchange CARDIO: regular rate and rhy thm, normal S1 and S2, nor murmur, rub, or gallop PULSES: normal capillary ref ill ABDOMEN: soft, non-distended, non-tender, no masses RECTAL: MUSCULOSKELETAL: no deformity or scol iosis noted, normal range of motion, joints normal, no erythema, edema, effusion, or ecchymosis EXTREMITY: no clubbing, cyanosi s, edema, or deformity with normal ROM in both upper and lower bilateral extremities NEUROLOGIC: grossly normal SKIN: no rashes, ulceratio ns, or suspicious lesions LYMPH NODES: no cervical adenopat hy, nodes normal MENTAL STATUS: alert and oriented x 3, normal mood and affect
--- OUTSIDE RECORDS SUMMARY | 2025-07-30 05:12 | XMS_ITS ---
Author Organization [facility] [place] Address [address] [place] [address] Care Team Providers Care Fpga Engineer Name Role Phone Arturo Abhilash Primary Care Provider Reason For Referral Reason [place] referr al for Dr Charla Oviedo Diagnosis 1 Nevus (D22.9) Referral Organization [facility] Referring Provider First Name Abhilash Referring Provider Last Name Arturo Referring Provider Speciality Family [facility] icine Referred Provider Specialty Dermatology Referral Priority Routine REASON FOR VISIT derm referral Encounters Encounter Location Date Provider Diagnosis [facility] [address] [place] [address] 07/30/2025 Abhilash Ansairzack Nevus D22.9 Assessments Encounter Date Diagnosis (ICD Code) Assessment Notes Treatment Notes Treatment Clinical Notes Section Notes 07/30/2025 Nevus (ICD-10 - D22.9) Plan Of Treatment Referrals Referral Date Details 07/30/2025 07/30/2025, arsenio delatorre referral for Dr Charla Oviedo Progress Notes * López CORTÉS PDOB:[birth year] (75 yo M)Acc No.[id number]:07/30/2025 Patient: Ruby SCOTTERICALópez :1950 A ge:75 Y S ex:Male Address:[address] [place] [address], [phone] Subjective: * Chief Complaints: * D erm referral * Medical History: * Surgical History: * Hospitalization/Major Diagno stic Procedure: * Medications: Objective: * Vitals: * Physical Examination: Assessment: * Assessment: 1. N evus - D22.9 (Primary) Plan: * Treatment: * Procedure Codes: * true * Date: Generated for Yareli catalan/Adriana/eTransmitting on: 0 07/31/2025 01:50 PM EDT Consultation Request Notes Referral Date Referring Provider Referred Provider Not 07/30/2025 Abhilash Morris , capo- Liliana brown for Dr Charla Oviedo
--- OUTSIDE RECORDS SUMMARY | 2025-07-31 13:50 | XMS_ITS | Encounter Summary ---
Author Organization [facility] Address [address] [place] [address] Care Team Providers Care Trimming Cutter Machine Name Role Phone Efe Morris MD Primary Care Provider [phone] Source Comments In the event this information is protected by the Federal Confidentiality of Alcohol and Drug AbusePatient Records regulations: The Federal rules restrict any use of the information to criminally investigate or prosecute any alcohol or drug abuse patient.[facility] Encounter Details Date Type Department Care Team (Late st Contact Info) Description 02/24/2019 Patient Msg Pulmonary Medicine [address] [address] Kristian Ivory [address] [place] [address] scan Social History Tobacco [...] on filedocumented in this encounter Care Teams Trimming Cutter Machine Relationship Specialty Start Date End Date Efe Morris MD PCP - General Family Medicine 11/07/17 documented as of this encounter
--- OUTSIDE RECORDS SUMMARY | 2025-07-31 13:50 | XMS_ITS | Encounter Summary ---
Author Organization [facility] Address [address] [place] [address] Phone Care Team Providers Care Loan Counselor Name Role Phone Efe Morris MD Primary Care Provider [phone] Encounter Details Date Type Department Care Team (Late Contact Info) Description 04/18/2025 Scanned Document [facility] [address] [place] [id number] Scanning, Generic Provider Social History Tobacco Use [...] Description 01/07/2026 8:40 AM EST Office Visit [place] [address] [place] [id number] Fidelina Albarado MD [address] [facility] [address] [place] [address] documented as of this encounter [...] documented as of this encounter Care Teams Loan Counselor Relationship Specialty Start Date End Date Efe Morris MD [address] [facility] [place] [address] PCP - General Family Medicine 03/14/25 documented as of this encounter
--- OUTSIDE RECORDS SUMMARY | 2025-07-31 13:50 | XMS_ITS | Patient Health Record ---
Author Organization [facility] in [place] Address [address] [place] [address] Care Team Providers Care Wheel Assembler Name Role Phone Abhilash Morris Primary Care Provider Allergies Allergen (clinical drug ingredient) Drug/Non Drug Allergy documented on EMR Reaction Allergy Type Onset Date Status Sulfa Unknown Drug Allergy Active Results Component Value Reference Range Notes GLYCOHEMOGLOBIN A1C Reviewed date:04/17/2025 06:13:03 PM Interpretation: Performing Lab: Notes/Report: [facility] , Glycohemoglobin A1C 5.7 4.5-6.2 % ADA RECOMMENDED LIMIT 4.0 - 6.0 ADA THERAPEUTIC TARGET < 7.0 ACTION SUGGESTED > 7.0 Estimated Average Glucose 117 Performing Lab: see note ML - [facility] LB CBC AUTO DIFF Reviewed date:04/17/2025 06:13:03 PM Interpretation: Performing Lab: Notes/Report: [facility] , White Blood Count 6.6 4.0-11.0 [...] 3/uL Performing Lab: see note ML - [facility] FREE T3 Reviewed date:04/17/2025 06:13:03 PM Interpretation: Performing Lab: Notes/Report: [facility] , Free T3 2.52 2.18-3.98 pg/mL Performing Lab: see note ML - [facility] LB LIPID PROFILE Reviewed date:04/17/2025 06:13:03 PM Interpretation: Performing Lab: Notes/Report: [facility] , Triglycerides 74 <=150 mg/dL Cholesterol [...] RISK Performing Lab: see note ML - [facility] LB PROF 14(COMP METB) Reviewed date:04/17/2025 06:13:03 PM Interpretation: Performing Lab: Notes/Report: [facility] , Sodium 142 136-145 mmol/L Potassium [...] 1.0 Performing Lab: see note ML - [facility] LB T4 Reviewed date:04/17/2025 06:13:03 PM Interpretation: Performing Lab: Notes/Report: [facility] , T4 Thyroxine 5.90 4.50-12.10 ug/dL Performing Lab: see note ML - [facility] LB TSH Reviewed date:04/17/2025 06:13:03 PM Interpretation: Performing Lab: Notes/Report: [facility] , Thyroid Stimulating Hormone 0.805 0.358-3.740 u IU/mL Performing Lab: see note ML - [facility] LB Occult Blood* Reviewed date:04/18/2025 05:43:17 PM Interpretation: Performing Lab: Notes/Report: [facility] , Occult Blood Positive Performing Lab: see note ML - [facility] LB PROF CHEM 8 (BAS METB) Reviewed date:05/05/2025 12:19:42 PM Interpretation: Performing Lab: Notes/Report: [facility] , Sodium 141 136-145 mmol/L Potassium [...] mg/dL Performing Lab: see note ML - [facility] LB Reason For Referral Diagnosis 1 Cervical radiculopat hy (M54.12) Referral Organization [facility] Referring Provider First Name Abhilash Referring Provider Last Name Arturo [facility]erred [facility] Pain Management, TB Referred Provider Specialty Pain Medicin e Referral Priority Routine Diagnosis 1 Positive occult stoo l blood test (R19.5) Referral Organization [facility] Referring Provider First Name Abhilash Referring Provider Last Name Arturo Referring Provider [facility] monique Referred Provider Obey Mahmood Referred Provider Specialty General Surg michelle Referral Priority Routine Reason seeing him alread Diagnosis 1 Sebaceous cyst (L72. 3) Referral Organization [facility] Referring Provider First Name Abhilash Referring Provider Last Name Arturo Referring Provider [facility] monique Referred Provider Obey Mahmood Referred Provider Specialty General Surg michelle Referral Priority Routine Reason attn- Liliana referr al for Dr Charla [place] Diagnosis 1 Nevus (D22.9) Referral Organization [facility] Referring Provider First Name Abhilash Referring Provider Last Name Arturo [facility]erring [facility] Referred Provider Specialty Dermatology Referral Priority Routine Medications Medication SIG (Take, Route, Frequency, Duration) Notes Start Date End Date Status Tamsulosin HCl 0.4 MG TAKE 1 CAPSULE [...] MOUTH EVERY DAY for 90 days Active Dabigatran Etexilate Mesylate 150 MG Oral for 90 Days Active Metoprolol Succinate ER 25 MG Oral for 90 Days Active Clotrimazole-Betamethasone 1-0.05 % 1 application Externally Twice a day 02/12/2025 Active Flecainide Acetate 50 MG as directed Orally Active Immunizations Vaccine Route Administration Date Status Comme nts Flu, Fluad (63039) 65 yrs + High Dose Seasonal (0482-9717) IM Intramuscular 09/15/2023 Administered Flu, Fluad (29523) 65 yrs and older, single-dose syringe (1220-1765) IM Intramuscular 09/26/2024 Administered Tdap Unknown 09/23/2024 Administered Social History AUDIT-C (Standard) Question Answer Notes Did you have a drink containing alcohol in the p ast year? No Points 0 Interpretation Negative Problems Problem Type SNOMED Code ICD Code Onset Dates Problem Status W/U Status Risk Notes Problem Sebaceous cyst (803325081) Sebaceous cyst (L72.3) Active confirmed Problem Impingement syndrome of left shoulder region (013996254329035) Impingement syndrome of left shoulder (M75.42) Active confirmed Problem Atrial fibrillation (61847278) Atrial fibrillation (I48.91) Active confirmed Problem Hypertension (24234442) Hypertension (I10) Active confirmed Problem Gastroesophageal reflux disease (274587187) GERD (gastroesophageal reflux disease) (K21.9) Active confirmed Problem Cervical radiculopat hy (95960444) Cervical radiculopathy (M54.12) Active confirmed Problem Peripheral neuropath y (583455000) Peripheral neuropathy (G62.9) Active confirmed Problem Chronic kidney disea se stage 2 (554015861) Chronic kidney disease, stage II (mild) (N18.2) Active confirmed Problem Insomnia (183405972) Insomnia (G47.00) Active c onfirmed Problem Osteoarthritis of kn ee (392893112) Knee osteoarthritis (M17.9) Active confirmed Problem Benign prostatic hyperplasia (243797324) BPH (benign prostatic hyperplasia) (N40.0) Active confirmed Problem Glaucoma (64871849) Glaucoma (H40.9) Active con firmed Problem 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 Problem Arthralgia (77422032) Arthralgia (M25.50) Active confirmed Problem Angioneurotic edema (20419307) Angioneurotic edema (T78.3XXA) Active confirmed Problem Basal cell carcinoma (0177034) Basal cell carcinoma (C44.91) Active confirmed Problem Acute bronchiolitis (2931286) Acute bronchiolitis (J21.9) Active confirmed Problem hypercholesterolemia (disorder) (51783430) Hypercholesteremia (E78.00) Active confirmed Problem Torticollis (93477701) Spastic t orticollis (M43.6) Active confirmed Problem Disorder of sacrum (38634735) Low back derangement syndrome (M53.86) Active confirmed Problem 690779024 Abnormal finding s on diagnostic imaging of other specified body structures (R93.89) Active confirmed Problem Osteoarthritis of kn ee (705928900) DJD (degenerative joint disease) of knee (M17.10) Active confirmed Vital Signs Temperature 98.2 degrees Fahrenheit 10/04/2024 Blood pressure diastolic 82 mm Hg 07/30/2025 Height 68 in 07/30/2025 Blood pressure systolic 132 mm Hg 07/30/2025 Weight 229.6 lbs 07/30/2025 BMI 34.91 kg/m2 07/30/2025 Procedures Procedure Date Ordered Date Performed Result Body Sit e Colonoscopy 06/18/2025 undefined Encounters Encounter Location Date Provider Diagnosis [address] [address] 05/03/2025 Abhilash Hoy Sebaceous cyst L72.3 ; Hypertension I10 and Atrial fibrillation I48.[address] [address] 10/04/2024 Abhilash Hoy Acute non-recurrent sinusitis, unspecified location J01.90 and Nasal congestion R09.[address] [address] 12/31/2024 Abhilash Hoy Spastic torticollis M43.6 ; Cervical radiculopathy M54.12 and Hypertension I10 [address] [address] 02/12/2025 Abhilash Hoy Hypertension I10 ; G ERD (gastroesophageal reflux disease) K21.9 ; Peripheral neuropathy G62.9 and Chronic kidney disease, stage II (mild) N18.[address] [address] 09/26/2024 Abhilash Hoy Encounter for immuni zation Z23 [facility] [address] [place] [address] 06/04/2025 Abhilash Ansariy Encounter for Medica re annual wellness exam Z00.00 [facility] [address] [place] [address] 07/30/2025 Abhilash Hoy Hypertension I10 ; G ERD (gastroesophageal reflux disease) K21.9 ; Chronic kidney disease, stage II (mild) N18.2 and BPH (benign prostatic hyperplasia) N40.0 [facility] [address] [place] [address] 10/08/2024 Abhilash Hoy Acute non-recurrent sinusitis, unspecified location J01.90 [place] [address] [place] [address] 2025 Abhilash Hoy Cervical radiculopat hy M54.12 [facility] [address] [place] [address] 02/12/2025 Abhilash Hoy Hypertension I10 [facility] [address] [place] [address] 03/20/2025 Abhilash Hoy Cervical radiculopat hy M54.12 [place] [address] [place] [address] 04/16/2025 Abhilash Hoy Chronic kidney disea se, stage II (mild) N18.2 ; Hypertension I10 ; Hypercholesteremia E78.00 and Polyneuropathy, unspecified G62.[address] [facility] [address] [place] [address] 04/17/2025 Abhilash Hoy Spastic torticollis M43.6 and Elevated BUN R79.9 [address] [place] [address] 04/18/2025 Abhilash Hoy [facility] [address] [place] [address] 04/18/2025 Abhilash Hoy Positive occult stoo l blood test R19.5 [place] [address] [place] [address] 05/05/2025 Abhilash Ansariy [facility] [address] [facility] [place] [address] 05/08/2025 Abhilash Hoy Hypertension I10 [facility] [address] [place] [facility] [address] 06/04/2025 Abhilash Morris Screening for osteop orosis Z13.820 [facility] [address] [facility] [place] [address] 07/01/2025 Abhilash Hoy [facility] [address] [facility] [place] [address] 07/30/2025 Abhilash Morris Nevus D22.[address] [facility] [address] [facility] [place] [address] 05/08/2025 Abhilash Hoy Hypertension I10 Assessments Encounter Date Diagnosis (ICD Code) Assessment Notes Treatment Notes Treatment Clinical Notes Section Notes 09/26/2024 Encounter for immunization (ICD-10 - Z23) 10/04/2024 Acute non-recurrent sinusitis, unspecified location (ICD-10 - J01.90) Rest and drink more liquids, especially water. You may use a humidifier or vaporizer to help keep the drainage moist. Yooq-vuk-siopzwz Nasal Saline may help the stuffy and runny nose. Use Ibuprofen and or Tylenol as needed for fever, chills, body aches or pain. Children 5 years old should not be given cdmx-cbg-eqbdvnb cough and cold medications such as guaifenesin and dextromethorphan. If you're over age 5, you may try rink-nhy-wwikqwz cold medications such as guaifenesin and dextromethorphan, [...] disease) (ICD-10 - K21.9) stabel on embed 06/04/2025 Encounter for Medicare annual wellness exam [...] week 05/03/2025 Sebaceous cyst (ICD-10 - L72.3) 05/08/2025 Hypertension (ICD-10 - I10) 07/30/2025 Hypertension (ICD-10 - I10) 07/30/2025 GERD (gastroesophageal reflux disease) (ICD-10 - K21.9) 10/08/2024 Acute non-recurrent sinusitis, unspecified location (ICD-10 [...] 06/04/2025 Screening for osteoporosis (ICD-10 - Z13.820) 07/30/2025 Nevus (ICD-10 - D22.9) 04/17/2025 Elevated BUN (ICD-10 - R79.9) 12/31/2024 Hypertension (ICD-10 - I10) 04/16/2025 Hypercholesteremia (ICD-10 - E78.00) 07/30/2025 Chronic kidney disease, stage II (mild) (ICD-10 - N18.2) 05/03/2025 Hypertension (ICD-10 - I10) 05/03/2025 Atrial fibrillation (ICD-10 - I48.91) 02/12/2025 Peripheral neuropathy (ICD-10 - G62.9) stable 10/04/2024 Nasal congestion (ICD-10 - R09.81) 02/12/2025 Chronic kidney disease, stage II (mild) (ICD-10 - N18.2) 07/30/2025 BPH (benign prostatic hyperplasia) (ICD-10 - N40.0) 04/16/2025 Polyneuropathy, unspecified (ICD-10 - G62.9) 12/31/2024 [...] BONE DENSITY 06/04/2025 THYROID PANEL (T4/TSH/FREE T3) 5 THYROID PANEL (T4/TSH/FREE T3) 4 PSA, SCREENING 04/09/2024 PSA, SCREENING 07/30/2025 Lipid Panel 04/09/2024 Lipid Panel 04/16/2025 CMP (COMP MET OQUENDO) w/eGFR CKD-EPI 2024 Insurance Providers Payer Name Payer Address Payer Phone Subscriber Number Group Number Insured Name Patient Relationship to Insured Coverage Start Date Coverage End Date [place] [address] [place] [address] [id number] López Borjas Self - patient is the insured [employer] SUPPLEMENT INSURANCE [address] [place] [phone] [id number] López Borjas Self - patient is the [...] Fractured sternum 807.2 Surgical History Surgery Date(Month/Year) ROTAR CUFF REPAIR- RIGHT cholecystectomy Colonoscopy Dr Giron 2015 Basal Cell Excision- left ear 06/18/25 EGD 05/22/25 colonoscopy 05/22/25 skin cancer removal from left ear BILATERAL BASAL JOINT INJECTONS REVISION LEFT TOTAL ARTHROPL ASTY, PERIARTICULAR INJECTION, PLACEMENT OF CONTINUOUS CATHETER 10/29/2020 RIGHT KNEE PARTIAL MENISCESTOMY 03/2019 HEMORRHOID SURGERY TRIGGER FINGER Hospitalization History Reason Date(Month/Year) See above
--- OUTSIDE RECORDS SUMMARY | 2025-07-31 13:50 | XMS_ITS | Clinical Summary ---
Author Organization [employer] Address [id number] [address] [place] [address] Care Team Providers Care Hurl Shaker Name Role Phone Efe Morris MD Primary Care Provider [phone] Allergies Active Allergy Reactions Criticality Noted Date [...] mouth nightly as needed for sleep. Active yykemefc-ayxz-L A-calcium &mins (THERAGRAN-M) 9 mg iron-400 mcg [...] home PT. Medical Devices Implanted Type Area Executive Director Of Marketing Device Identifier Shelf Expiration Date Model / Serial / Lot Cmnt Bn Bio 40gm Rpl [id number] - Sna - [id number] Implanted:Qty : 2 on 05/07/2020 by Bruno Ortega DO at [facility] Cement Left: Knee [employer] 02/19/2024 [id number] / NA / [id number] Cmpt Fem 9 Std Kn Lt Cr Cmnt - Sna - [id number] Implanted:Qty : 1 on 05/07/2020 by Bruno Ortega DO at [facility] Orthopedic Implant Left: Knee [employer] 09/20/2029 02-1183-745- 01 / NA / [id number] Cmpt Ptlr 32mm Nxgn Alply Rpl [id number] + [id number] + [id number] - Sna - [id number] Implanted:Qty : 1 on 05/07/2020 by Bruno Ortega DO at [facility] Orthopedic Implant Left: Knee [employer] 10/20/2027 [id number] 32 / NA / [id number] Psn Mc Ve Asf L 12mm 8-11/Ef - Sna - [id number] Implanted:Qty : 1 on 05/07/2020 by Bruno Ortega DO at [facility] Orthopedic Implant Left: Knee [employer] 06/20/2024 [id number] 12 / NA / [id number] Bsplt Tib 5d E Kn Lt Cmnt Stm - Sna - [id number] Implanted:Qty : 1 on 05/07/2020 by Bruno Ortega DO at [facility] Plate Left: Knee [employer] 09/20/2027 [id number] 01 / NA / [id number] Explanted Type Area Executive Director Of Marketing Device Identifier Shelf Expiration Date Model / Serial / Lot Scr Bn Arsen 35mm 6.5mm Hip St Rpl [id number] + [id number] + 32 - Sna - [id number] Explanted:Qty: 1 on 05/07/2020 at [facility] Screw Left: Knee [employer] 10/20/2029-6250-06 5-35 / NA / [id number] Scr Bn Arsen 35mm 6.5mm Hip St Rpl [id number] + [id number] + 32 - Sna - [id number] Explanted:Qty: 1 on 05/07/2020 by Bruno Ortega DO at [facility] Screw Left: Knee [employer] 10/18/20296250- 5-35 / NA / [id number] Scr Gd 48mm Qd-Spr Hex Hd Mis - Sna - [id number] Explanted:Qty: 1 on 05/07/2020 at [facility] Screw Left: Knee [employer] 01/18/20305983- 0-48 / NA / [id number] Scr Gd 48mm Qd-Spr Hex Hd Mis - Sna - [id number] Explanted:Qty: 1 on 05/07/2020 by Bruno Ortega DO at [facility] Screw Left: Knee [employer] 09/20/20295983- 0-48 / NA / [id number] Insurance MEDICARE [employer] Advance Directives * Full Code (Latest Code Status on File) Date Activated Date Inactivated Comments 05/07/2020 2:06 PM 05/08/2020 3:38 PM Care Teams Hurl Shaker Relationship Specialty Start Date End Date Efe Morris MD PCP - General Family Medicine 04/12/19
--- OUTSIDE RECORDS SUMMARY | 2025-07-31 13:50 | XMS_ITS | Encounter Summary ---
Author Organization [facility] Address [address] [place] [address] Care Team Providers Care Bakery Demonstrator Name Role Phone Efe Morris MD Primary Care Provider [phone] Source Comments In the event this information is protected by the Federal Confidentiality of Alcohol and Drug AbusePatient Records regulations: The Federal rules restrict any use of the information to criminally investigate or prosecute any alcohol or drug abuse patient.[facility] Encounter Details Date Type Department Care Team (Late st Contact Info) Description 02/14/2018 Abstract [facility] [address] [place] [address] Main Perez MD [address] [place] [address] Social History Tobacco Use Types Packs/Day Years [...] on filedocumented in this encounter Care Teams Bakery Demonstrator Relationship Specialty Start Date End Date Efe Morris MD PCP - General Family Medicine 11/07/17 documented as of this encounter
--- OUTSIDE RECORDS SUMMARY | 2025-07-31 13:50 | XMS_ITS | Clinical Summary ---
Author Organization [facility] Address [address] [place] [address] Care Team Providers Care Structural Steel Fitter Name Role Phone Unavailable Primary Care Provider [...]
--- OUTSIDE RECORDS SUMMARY | 2025-07-31 13:51 | XMS_ITS | Clinical Summary ---
Author Organization [facility] Address [address] [place] [facility] [place] [address] Care Team Providers Care Cupola Operator Insulation Name Role Phone Unavailable Primary Care Provider [...] Last Done Comments CT Colonography 1951 FIT-DNA 1951 FIT 1951 FOBT 1950 Sigmoidoscopy 1950 Pneumococcal Vaccine: 65+ Ye ars (2 of 2 - PCV) 08/21/2018 08/21/2017, 08/01/2017, 06/27/2017 Influenza Vaccine (#1) 2025 4, 08/31/2022, 09/03/2020, Additional history exists Colonoscopy 05/22/2035 05/22/2025, 07/25/2019 Colorectal Cancer Screening 05/22/2035 Insurance MEDICARE [employer]
--- OUTSIDE RECORDS SUMMARY | 2025-07-31 13:51 | XMS_ITS | Clinical Summary ---
Author Organization [facility] Address [address] [place] [address] Care Team Providers Care Workers Compensation Claims Analyst Name Role Phone Efe Morris MD Primary Care Provider [phone] Allergies Active Allergy Reactions Criticality Noted Date [...] N ot on file 10/28/2020 Data from: [email or web address] Last address used for calculation Not [...] 75+ series) 2026 Insurance MEDICARE Care Teams Workers Compensation Claims Analyst Relationship Specialty Start Date End Date Efe Morris MD PCP - General Family Medicine 11/07/17
--- OUTSIDE RECORDS SUMMARY | 2025-07-31 13:51 | XMS_ITS | Clinical Summary ---
Author Organization [facility] Address [address], [address] [place] [address] Care Team Providers Care Video Games Mechanic Name Role Phone Efe Morris MD Primary Care Provider [phone] Allergies Active Allergy Reactions Criticality Noted Date [...] Not on file Insurance MEDICARE [employer] [place] MEDICARE Member Subscriber Plan / Payer ( fective 2014-Present) Name:Mark Borjasryl Relation to Subscriber:Self Name:López Borjas Payer ID:Not on file Group ID:Not on file Type:Not on file Address: [place] [id number] [employer] [place] [id number] [employer]ANCE Care Teams Video Games Mechanic Relationship Specialty Start Date End Date Efe Morris MD [address] [place] [address] PCP - General Family Medicine 10/25/17
--- OUTSIDE RECORDS SUMMARY | 2025-07-31 13:51 | XMS_ITS | Clinical Summary ---
Author Organization [facility] Address [address] [place] [address] Phone Care Team Providers Care Truck Driver Supervisor Name Role Phone Efe Morris MD Primary Care Provider [phone] Allergies Active Allergy Reactions Criticality Noted Date [...] Type Department Care Team Description 05/13/2025 Telephone [place] [id number] [address] Julissa Alonso, JUDI med hold 05/09/2025 10:00 AM EDT Ancillary Procedure [address] [place] [address] Paroxysmal atrial fibrillation (Multi) 05/08/2025 Travel 05/02/2025 11:30 AM EDT Office Visit [address] [place] [address] Fidelina Albarado MD Paroxysmal atrial fibrillation (Multi); High risk medication use; Encounter to discuss test results; Essential hypertension; Mixed hyperlipidemia; BMI 34.0-34.9,adult; Former smoker 05/02/2025 Travel from Last 3 Months Immunizations Immunization [...] Description 01/07/2026 8:40 AM EST Office Visit [place] [address] [place] [address] Fidelina Albarado MD [address] [place] [address] Health Maintenance Due Date Last Done Comments CT Colonography 1951 FIT-DNA (Cologuard) 1950 FIT 1950 Lipid Panel 1950 Medicare Annual Wellness Visit (AWV) 1950 Sigmoidoscopy 1950 MMR Vaccines (1 of 1 - Standard series) 01/25/1952 Hepatitis C Screening 1969 Pneumococcal Vaccine (1 of 2 - PCV) 1970 Zoster Vaccines (1 of 2) 2001 RSV High Risk: (Elderly (60+) or Population) (1 - Risk 60-74 years 1-dose series) 2011 Abdominal Aortic Aneurysm (AAA) Screening 01/25/2016 Diabetes Screening 10/02/2021 10/02/2020 COVID-19 Vaccine ( season) 2025 09/22/2023, 09/24/2022, 03/29/2022, Additional history exists Influenza [...] 9:33 AM EDT Paroxysmal atrial fibrillation (Multi) from Last 3 Months Results * ECG 12 Lead (05/09/2025 9:33 AM EDT) Narrative [facility] - 05/09/2025 2:17 PM EDT Sinus bradycardia, T wave inversion inferiorly, low voltage QRS complex, abnormal ECG us Fidelina Albarado MD ECG ORDERABLES Final Result [facility] from Last 3 Months Insurance MEDICARE PART A AND B [employer] SENIOR SUPPLEMENT MEDICARE PART A AND B [employer] SENIOR SUPPLEMENT Care Teams Truck Driver Supervisor Relationship Specialty Start Date End Date Efe Morris MD [address] [facility] [place] [address] PCP - General Family Medicine 03/14/25
--- OUTSIDE RECORDS SUMMARY | 2025-07-31 13:51 | XMS_ITS | Clinical Summary ---
Author Organization [facility] Address [address] [place] [address] Care Team Providers Care Direct Care Worker Name Role Phone Efe Morris MD Primary Care Provider [phone] Allergies Active Allergy Reactions Criticality Noted Date [...] 08/21/2017, 08/01/2017, 06/27/2017 COVID-19 VACCINE ( season) 2025 09/22/2023, 09/24/2022, 03/29/2022, Additional history exists INFLUENZA VACCINE (#1) 2025 2, 09/03/2020, 09/04/2019, Additional history exists RSV VACCINE (1 - 1-dose 75+ series) 2026 HEP B VACCINE Aged Out No longer elig ible based on patient's age to complete this topic Medical Devices Implanted Type Area Slot Machine Mechanic Device Identifier Shelf Expiration Date Model / Serial / Lot Palacos R+G 1x40 (Bone Cement) Implanted:Qty: 3 on 10/28/2020 by Barak Fernández MD at [facility] Left: Knee 01/18/2023 [id number] / / [id number] Attune Knee System Revision Crs Rotating Platform Insert Size 7 8mm Aox Implanted:Qty: 1 on 10/28/2020 by Barak Fernández MD at [facility] Left: Knee [employer] 01/18/2025 1517-10-708 / / [id number] Attune Knee System Revision Distal Femoral Augment Implanted:Qty: 1 on 10/28/2020 by Barak Fernández MD at [facility] Left: Knee [employer] 08/20/2029 1547-07-001 / / [id number] Attune Knee System Revision Tibial Base Rotating Platform Size 6 Cemented Implanted:Qty: 1 on 10/28/2020 by Barak Fernández MD at [facility] Left: Knee [employer] 05/20/2029 1506-60-006 / / [id number] Attune Knee System Revision Pressfit Stem 12mm X60mm Implanted:Qty: 1 on 10/28/2020 by Barak Fernández MD at [facility] Left: Knee [employer] 07/21/2030 1513-12-060 / / [id number] Attune Knee System Revision Pressfit Stem 16mm X 110mm Implanted:Qty: 1 on 10/28/2020 by Barak Fernández MD at [facility] Left: Knee [employer] 09/20/2029 1513-16-110 / / [id number] Attune Knee System Revision Tibial Sleeve Porocoat Partially Coated 29mm Implanted:Qty: 1 on 10/28/2020 by Barak Fernández MD at [facility] Left: Knee [employer] 05/20/2029 1511-11-101 / / [id number] Attune Knee System Revision Crs Femoral Size 7 Left Cemented Implanted:Qty: 1 on 10/28/2020 by Barak Fernández MD at [facility] Left: Knee [employer] 11/20/2028 1504-40-107 / / [id number] Attune Knee System Revision Posterior Femoral Augment Size 7 8mm Cemented Implanted:Qty: 1 on 10/28/2020 by Barak Fernández MD at [facility] Left: Knee [employer] 05/20/2030 1549-07-002 / / [id number] Attune Knee System Revision Posterior Femoral Augment Size 7 4mm Cemented Implanted:Qty: 1 on 10/28/2020 by Barak Fernández MD at [facility] Left: Knee [employer] 04/20/2030 1549-07-001 / / [id number] Insurance Medicare A and B Medicare Supplement Advance Directives For more information, please contact: [phone] (7:30 AM - 6PM [facility], Tuesday-Tuesday) Documents on File Type Date Recorded Patient Lab Director Expl anation Advance Directives/Living Will 10/28/2020 9:12 AM LIVING WILL, FILIBERTO * Full Code (Latest Code Status on File) Date Activated Date Inactivated Comments 10/28/2020 3:43 PM Care Teams Direct Care Worker Relationship Specialty Start Date End Date Efe Morris MD PCP - General Family Medicine 09/11/20
--- OUTSIDE RECORDS SUMMARY | 2025-07-31 14:00 | XMS_ITS | CCD ---
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 Tab, 50 mg= 1 tab(s), Oral, q12hr irbesartan 150 mg Tab, 150 mg= 1 tab(s), Oral, Daily metoprolol succinate 25 mg ER Tab, 25 mg= 1 tab(s), Oral, Daily Pantoprazole [address] Tab, 40 mg= 1 tab(s), Oral, Daily, 3 refills pravastatin 40 mg Tab, 40 mg= 1 tab(s), Oral, Daily tadalafil 10 mg Tab, See Instructions, PRN, 5 refills tamsulosin 0.4 mg Cap, 0.4 mg= 1 cap(s), Oral, Daily temazepam 15 mg Cap, Oral, Once a day (at bedtime) Allergies sulfamethoxazole (Unknown) Social History Alcohol - Denies Alcohol Use, 01/31/2024 Never., 05/07/2025 Substance Abuse - Denies Substance Abuse, 01/31/2024 Never., 05/07/2025 Tobacco Former smoker, quit more than 30 days ago, 35 years ago Tobacco Use:. Never Smokeless Tobacco Use:. Cigarettes, 06/18/2025 Family History CVA: Mother. Immunizations Vaccine Date Status influenza virus vaccine (more content not included)... [facility] Comment on above: Result Comment: Elec tronically Signed By: EVETTE RILEY, Hugh Varela\Date and Time Signed: 06/18/25 14:16 EDT General Surgery Office/Clini c Noteon 06-05-2025 General Surgery Office/Clinic Note General Surgery Office/Clinic Note Chief Complaint post operative follow up HPI Staff 14 day post operative follow up post EGD with distal esophagus biopsy, colonoscopy with ascending polypectomy and excisional biopsy epidermal cyst left upper back. History of Present Illness 2 weeks s/p EGD and colonoscopy, and excision ruptured epidermal cyst of back; EGD with evidence of short segment Terrazas's esophagus, no dysplasia; colonoscopy with 4 mm ascending colon tubular adenoma; cyst compatible with ruptured epidermal cyst. doing well, denies abd pain or blood in stools; GERD controlled; some itching of back incision, no drainage; reports just noticed small scab/bleeding on left Pinna in last several days; h/o basal cell carcinoma excised 08/2024. Review of Systems PHQ Score Initial Depression [...] negative or noncontributory. Physical Exam skin: left upper Pinna with 4 mm irregular scab Assessment/Plan 1. 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 2. Benign neoplasm of ascending colon (D12.2: Benign neoplasm of ascending colon) follow up surveillance colonoscopy in 5 years if remain in good health; call sooner if problems/questions. 3. Ruptured epidermal cyst (L72.0: Epidermal cyst) doing well, sutures removed; call with problems/questions. 4. Basal cell carcinoma of skin of left ear and external auricular canal (C44.219: Basal cell carcinoma of skin of left ear and external auricular canal) plan reexcision under local anesthesia in the office, for definitive diagnosis and treatment; informed consent obtained. 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 Barretts esophagus Basal cell carcinoma of ear Benign neoplasm of ascending colon BMI 34.0-34.9,adult BPH (benign prostatic hyperplasia) Chronic kidney disease COPD, mild ED (erectile dysfunction) Epidermal cyst GERD (gastroesophageal reflux disease) Glaucoma Hypercholesteremia Hypertension Insomnia Left renal mass Migraine Morbid obesity Neoplasm of uncertain behavior of skin of ear Nocturia Peripheral neuropathy Positive fecal occult blood test Recurrent basal cell carcinoma of ear Renal hematoma, left Ruptured epidermal cyst SCC (squamous cell carcinoma), hand Historical Cellulitis 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 Injury of kidney Lower back pain Skin foreign body Subconjunctival hemorrhage Procedure/Surgical History Colonoscopy (05/22/2025), EGD - esophagogastroduodenoscopy (05/22/2025), Excision of cyst (05/22/2025), Excisional biopsy of basal cell carcinoma (08/29/2024), Excision of basal cell carcinoma (02/28/2024), Colonoscopy (07/25/2019), EGD - esophagogastroduodenoscopy (07/25/2019), Arthroscopic knee operation (04/26/2019), Colonoscopy (2015), Arthroplasty of knee, Arthroscopy, shoulder, surgical; with rotator cuff repair, Cholecystectomy;, hemorrhoidectomy, Meniscal repair, Revision of knee arthroplasty, Tendon sheath incision (eg, for trigger finger). Medications dabigatran etexilate 150 mg cap, 150 mg= 1 cap(s), Oral, BID flecainide 50 mg Tab, 50 mg= 1 tab(s), Oral, q12hr irbesartan 150 mg Tab, 150 mg= 1 tab(s), Oral, Daily metoprolol succinate 25 mg ER Tab, 25 mg= 1 tab(s), Oral, Daily Pantoprazole [address] Tab, 40 mg= 1 tab(s), Oral, Daily, 3 refills pravastatin 40 mg Tab, 40 mg= 1 tab(s), Oral, Daily tadalafil 10 mg Tab, See Instructions, PRN, 5 refills tamsulosin 0.4 mg Cap, 0.4 mg= 1 cap(s), Oral, Daily temazepam 15 mg Cap, Oral, Once a day (at bedtime) Allergies sulfamethoxazole (Unknown) Social History Alcohol (more content not included)... Normal [facility] Comment on above: Result Comment: Elec tronically Signed By: EVETTE RILEY, Hugh Varela\Date and Time Signed: 06/05/25 14:57 EDT Reminderson 06-05-2025 Reminders Reminders From: Modesta Hope LPN To: N - Clinical; Sent: 06/05/2025 15:13:12 EDT Show up: 04/22/2030 07:00:00 EDT Subject: colonoscopy recall Due Date/Time: 05/22/2030 07:00:00 EDT Reminder/Recall Patient due for colonoscopy 05/22/2030 due to history of tubular adenoma. (2024) Normal [facility] Reminders Reminders From: Modesta Hope LPN To: GSN - Clinical; Sent: 06/05/2025 15:11:41 EDT Show up: 04/22/2028 07:00:00 EDT Subject: EGD recall Due Date/Time: 05/22/2028 07:00:00 EDT Reminder/Recall Patient due for EGD 05/22/2028 due to history of Terrazas's esophagus. (2024) Normal [facility] Pathology Request for Lab Co rpon 05-22-2025 Pathology Request for Lab Zaira Normal [facility] Comment on above: Order Comment: LC x3 SPECIMENS, GI, SKIN Result Comment: See report. Scanned copy available in EMR. PERFORMED BY: [place] [address] PATHOLOGIST HEALTHCARE ADMINISTRATIVE ASSISTANT AMBROSE OLSON M.D. Performed By: #### P ATH TO [facility] #### [address] Ambulatory Visit Summaryon 0 05-07-2025 Ambulatory Visit Summary Ambulatory Visit Summary PROSPER CORTÉSHarris Moreno :1950 Visit Date:05/07/2025 Ambulatory Visit Instructions Your Care Team Attending Physician - EVETTE RILEY, Hugh Castañeda Primary Care Physician - Tess Fuentes [...] for choosing us for your care. Normal [facility] NM katya perf SPECT rest stron 04-19-2025 NM katya perf SPECT rest [facility] [place] [address] [place] [id number] Nuclear Medicine Report Signed Patient: López Cortés MR#: [id number] : 1950 Acct:[id number] Age/Sex: 75 / M ADM Date: 04/18/25 Loc: Room: Type: [facility] Attending Dr: Adrien Foley APRN Copies to: GLORIA Domínguez MD Ordering Provider: Adrien Foley APRN Date of Service: 04/18/25 NM/NM katya perf SPECT rest str: SOB NUCLEAR MYOCARDIAL PERFUSION DATE OF PROCEDURE: 04/09/2025 ATTENDING GENERAL LABORER: Dr. Epi Paredes REQUESTING PHYSICIAN: Steffanie Foley [...] Paredes M.D. 04/19/2025 1:23 PM Dictation Location: [place] [address] Transcribed By: TANO 04/19/25 1323 Dictated By: Epi Paredes MD 04/19/25 1322 Signed By: 04/19/25 1323 Normal [facility] Alanine aminotransferase [En zymatic activity/volume] in Serum or PlasmaOrdered By: Adrien Foley on 04-18-2025 ALT [Catalytic activity/Vol] Alanine aminotransferase [Enzymatic activity/volume] in Serum or Plasma [facility] ALT [Catalytic activity/Vol] 27 U/L Normal [facility] Comment on above: Order Comment: PATHO LOGY SKIN SPECIMEN Performed By: #### P ATH TO [facility] #### [facility] [address] [place] [address] [place] Aspartate aminotransferase [ Enzymatic activity/volume] in Serum or PlasmaOrdered By: Adrien Foley on 04-18-2025 AST [Catalytic activity/Vol] Aspartate aminotransferase [Enzymatic activity/volume] in Serum or Plasma [facility] AST [Catalytic activity/Vol] 30 U/L Normal [facility] Comment on above: Order Comment: PATHO LOGY SKIN SPECIMEN Performed By: #### P ATH TO [facility] #### [facility] [address] Basophils Auto (Bld) [#/Vol] Ordered By: Adrien Folye on 04-18-2025 Basophils (Bld) [#/Vol] Automated basophil count 0.0-0.2 [facility] Basophils [#/volume] in Bloo d by Automated countOrdered By: Adrien Foley on 04-18-2025 Basophils (Bld) [#/Vol] 0.1 10*3/uL Normal 0.0-0.2 [facility] Comment on above: Result Comment: PERF ORMED BY: [place] [address] PATHOLOGIST HEALTHCARE ADMINISTRATIVE ASSISTANT AMBROSE OLSON M.D. Performed By: #### C BC, ALT, LIPID, AST #### [facility] [address] [place] [address] [place] Basophils/100 WBC Auto (Bld) Ordered By: Adrien Foley on 04-18-2025 Basophils/100 WBC (Bld) Automated basophil % . [facility] Basophils/100 leukocytes in Blood by Automated countOrdered By: Adrien Foley on 04-18-2025 Basophils/100 WBC (Bld) 0.7 % Normal . [facility] Comment on above: Performed By: #### C BC, ALT, LIPID, AST #### [facility] [address] [place] [address] [place] Cholesterol [Mass/volume] in Serum or PlasmaOrdered By: Adrien Foley on 04-18-2025 Cholesterol [Mass/Vol] Cholesterol [Mass /volume] in Serum or Plasma Low 140-200 [facility] Comment on above: Chol less than 200 m g/dl low riskChol 201-239 mg/dl borderline riskChol 240 mg/dl and greater high risk Cholesterol [Mass/Vol] 127 mg/dL Low 140-200 [facility] Comment on above: Chol less than 200 m g/dl low riskChol 201-239 mg/dl borderline riskChol 240 mg/dl and greater high risk Order Comment: PATHO LOGY SKIN SPECIMEN Result Comment: Chol less than 200 mg/dl low risk Chol 201-239 mg/dl borderline risk Chol 240 mg/dl and greater high risk Performed By: #### P ATH TO [facility] #### [facility] [address] [place] [address] [place] Cholesterol in HDL [Mass/vol ume] in Serum or PlasmaOrdered By: Adrien Foley on 04-18-2025 Cholesterol in HDL [Mass/Vol] Serum or plasma high density lipoprotein (HDL) cholesterol measurement [facility] Comment on above: HDL CHOL ATP-III CLA SSIFICATION Cardiovascular RiskHDL > or equal to 60 mg/dL LOWHDL < 40 mg/dL HIGH Cholesterol in HDL [Mass/Vol] 42 mg/dL Normal [facility] Comment on above: HDL CHOL ATP-III CLA SSIFICATION Cardiovascular RiskHDL > or equal to 60 mg/dL LOWHDL < 40 mg/dL HIGH Order Comment: PATHO LOGY SKIN SPECIMEN Result Comment: HDL CHOL ATP-III CLASSIFICATION Cardiovascular Risk HDL > or equal to 60 mg/dL LOW HDL < 40 mg/dL HIGH Performed By: #### P ATH TO [facility] #### [facility] [address] [place] [address] [place] Cholesterol in LDL Calc [Mas s/Vol]Ordered By: Adrien Foley on 04-18-2025 Cholesterol in LDL [Mass/Vol] Cholesterol in LDL [Mass/volume] in Serum or Plasma by calculation 0-100 [facility] Comment on above: LDL ATP III CLASSIFI CATIONLDL less than 100 mg/dL OptimalLDL 100-129 mg/dL Near or above optimalLDL 130-159 mg/dL Borderline highLDL 160-189 mg/dL HighLDL greater than 189 mg/dL Very high Cholesterol in LDL [Mass/Vol] 67 mg/dL 0-100 [facility] Comment on above: LDL ATP III CLASSIFI CATIONLDL less than 100 mg/dL OptimalLDL 100-129 mg/dL Near or above optimalLDL 130-159 mg/dL Borderline highLDL 160-189 mg/dL HighLDL greater than 189 mg/dL Very high Cholesterol in VLDL Calc [Ma ss/Vol]Ordered By: Adrien Foley on 04-18-2025 Cholesterol in VLDL [Mass/Vol] Cholesterol in VLDL [Mass/volume] in Serum or Plasma by calculation [facility] Cholesterol in VLDL [Mass/Vol] 17 mg/dL [facility] Complete Blood Count Auto Di ffon 04-18-2025 Mean Corpuscular HGB Conc 33.9 g/dL Normal 32.5-35.6 [facility] Comment on above: Performed By: #### C BC, ALT, LIPID, AST #### [facility] [address] NRBC% 0.1 /100{WBC} Normal 0-0.5 [facility] Comment on above: Performed By: #### C BC, ALT, LIPID, AST #### [facility] [address] [place] [address] E[facility] echo transthoracicon ECH echo transthoracic [facility] [place] [address] [place] [address] Echocardiogram Signed Patient: López Cortés MR#: [id number] : 1950 Acct:[id number] Age/Sex: 75 / M ADM Date: 04/18/25 Loc: Room: Type: [facility] Attending Dr: Adrien Foley PRODUCT SUPPORT MANAGER Ordering Provider: Adrien Foley APRN Date of [...] Epi Paredes MD 04/18/25 1841 Normal [facility] Eosinophils Auto (Bld) [#/Vo l]Ordered By: Adrien Foley on 04-18-2025 Eosinophils (Bld) [#/Vol] Automated eosinophil count 0.0-0.45 [facility] Eosinophils [#/volume] in Bl ood by Automated countOrdered By: Adrien Foley on 04-18-2025 Eosinophils (Bld) [#/Vol] 0.2 10*3/uL Normal 0.0-0.45 [facility] Comment on above: Performed By: #### C BC, ALT, LIPID, AST #### [address] Eosinophils/100 WBC Auto (Bl d)Ordered By: Adrien Foley on 04-18-2025 Eosinophils/100 WBC (Bld) Automated eosinophil % . [facility] Eosinophils/100 leukocytes i n Blood by Automated countOrdered By: Adrien Foley on 04-18-2025 Eosinophils/100 WBC (Bld) 2.6 % Normal . [facility] Comment on above: Performed By: #### C BC, ALT, LIPID, AST #### [facility] [address] [place] [address] Erythrocyte distribution wid th Auto (RBC) [Ratio]Ordered By: Adrien Foley on 04-18-2025 Erythrocyte distribution width (RBC) [Ratio] Erythrocyte distribution width [Ratio] by Automated count 12.0-14.8 [facility] Erythrocyte distribution wid th [Ratio] by Automated countOrdered By: Adrien Foley on 04-18-2025 Erythrocyte distribution width (RBC) [Ratio] 14.0 % Normal 12.0-14.8 [facility] Comment on above: Performed By: #### C BC, ALT, LIPID, AST #### [facility] [address] [place] [address] Erythrocytes [#/volume] in B lood by Automated countOrdered By: Adrien Foley on 04-18-2025 RBC (Bld) [#/Vol] 5.15 10*6/uL Normal 3.90-5.60 [facility] Comment on above: Performed By: #### C BC, ALT, LIPID, AST #### [facility] [address] [place] [address] Hematocrit Auto (Bld) [Volum e fraction]Ordered By: Adrien Foley on 04-18-2025 Hematocrit (Bld) [Volume fraction] Hematocrit [Volume Fraction] of Blood by Automated count 38.8-50.0 [facility] Hematocrit [Volume Fraction] of Blood by Automated countOrdered By: Adrien Foley on 04-18-2025 Hematocrit (Bld) [Volume fraction] 48.5 % Normal 38.8-50.0 [facility] Comment on above: Performed By: #### C BC, ALT, LIPID, AST #### [facility] [address] [place] [address] Hemoglobin [Mass/volume] in BloodOrdered By: Adrien Foley on 04-18-2025 Hemoglobin (Bld) [Mass/Vol] Hemoglobin [Mass/volume] in Blood 13.0-17.0 [facility] Hemoglobin (Bld) [Mass/Vol] 16.5 g/dL Normal 13.0-17.0 [facility] Comment on above: Performed By: #### C BC, ALT, LIPID, AST #### [facility] [address] Leukocytes [#/volume] correc zackary for nucleated erythrocytes in Blood by Automated counOrdered By: Adrien Foley on 04-18-2025 WBC corrected for nucl RBC Auto (Bld) [#/Vol] Leukocytes [#/volume] corrected for nucleated erythrocytes in Blood by Automated coun 4.1-10.5 [facility] WBC corrected for nucl RBC Auto (Bld) [#/Vol] 7.4 10*3/uL 4.1-10.5 [facility] Leukocytes [#/volume] in Blo od by Automated countOrdered By: Adrien Foley on 04-18-2025 WBC (Bld) [#/Vol] 7.4 10*3/uL Normal 4.1-10.5 [facility] Comment on above: Performed By: #### C BC, ALT, LIPID, AST #### [facility] [address] Lipid Panelon 04-18-2025 LDL Cholesterol,Calculated 67 mg/dL Normal 0-100 [facility] Comment on above: Order Comment: PATHO LOGY SKIN SPECIMEN Result Comment: LDL ATP III CLASSIFICATION LDL less than 100 mg/dL Optimal LDL 100-129 mg/dL Near or above optimal LDL 130-159 mg/dL Borderline high LDL 160-189 mg/dL High LDL greater than 189 mg/dL Very high Performed By: #### P ATH TO [facility] #### [facility] [address] Triglyceride w/Reflex 89 mg/dL Normal 0-149 [facility] Comment on above: Order Comment: PATHO LOGY SKIN SPECIMEN Result Comment: TRIG ATP III CLASSIFICATION TRIG less than 150 mg/dL Normal TRIG 150-199 mg/dL Borderline high TRIG 200-500 mg/dL High TRIG greater than 500 mg/dL Very high Standard traceable to the Center for Disease Conrtrol and Prevention (CDC) test method. Performed By: #### P ATH TO [facility] #### [address] VLDL CHOLESTEROL 17 mg/dL Normal [facility] Comment on above: Order Comment: PATHO LOGY SKIN SPECIMEN Performed By: #### P ATH TO [facility] #### [address] Lymphocytes Auto (Bld) [#/Vo l]Ordered By: Adrien Foley on 04-18-2025 Lymphocytes (Bld) [#/Vol] Lymphocytes [#/volume] in Blood by Automated count 1.00-4.8 [facility] Lymphocytes [#/volume] in Bl ood by Automated countOrdered By: Adrien Foley on 04-18-2025 Lymphocytes (Bld) [#/Vol] 1.3 10*3/uL Normal 1.00-4.8 [facility] Comment on above: Performed By: #### C BC, ALT, LIPID, AST #### [address] Lymphocytes/100 WBC Auto (Bl d)Ordered By: Adrien Foley on 04-18-2025 Lymphocytes/100 WBC (Bld) Lymphocytes/100 leukocytes in Blood by Automated count . [facility] Lymphocytes/100 leukocytes i n Blood by Automated countOrdered By: Adrien Foley on 04-18-2025 Lymphocytes/100 WBC (Bld) 17.0 % Normal . [facility] Comment on above: Performed By: #### C BC, ALT, LIPID, AST #### [address] MCH Auto (RBC) [Entitic mass ]Ordered By: Adrien Foley on 04-18-2025 MCH (RBC) [Entitic mass] MCH [Entitic mass] by Automated count 27.5-35.2 [facility] MCH [Entitic mass] by Automa zackary countOrdered By: Adrien Foley on 04-18-2025 MCH (RBC) [Entitic mass] 32.0 pg Normal 27.5-35.2 [facility] Comment on above: Performed By: #### C BC, ALT, LIPID, AST #### [address] [place] [address] [place] MCHC Auto (RBC) [Mass/Vol]Or dered By: Adrien Foley on 04-18-2025 MCHC (RBC) [Mass/Vol] MCHC [Mass/volume] by Automated count 32.5-35.6 [facility] MCHC (RBC) [Mass/Vol] 33.9 g/dL 32.5-35.6 [facility] MCV Auto (RBC) [Entitic vol] Ordered By: Adrien Foley on 04-18-2025 MCV (RBC) [Entitic vol] MCV [Entitic volume] by Automated count 83.5-101 [facility] MCV [Entitic volume] by Auto mated countOrdered By: Adrien Foley on 04-18-2025 MCV (RBC) [Entitic vol] 94.3 fL Normal 83.5-101 [facility] Comment on above: Performed By: #### C BC, ALT, LIPID, AST #### [facility] [address] [place] [address] Monocytes Auto (Bld) [#/Vol] Ordered By: Adrien Foley on 04-18-2025 Monocytes (Bld) [#/Vol] Automated blood monocyte count High 0.0-0.8 [facility] Monocytes [#/volume] in Bloo d by Automated countOrdered By: Adrien Foley on 04-18-2025 Monocytes (Bld) [#/Vol] 0.9 10*3/uL High 0.0-0.8 [facility] Comment on above: Performed By: #### C BC, ALT, LIPID, AST #### [facility] [address] [place] [address] Monocytes/100 WBC Auto (Bld) Ordered By: Adrien Foley on 04-18-2025 Monocytes/100 WBC (Bld) Automated monocyte % . [facility] Monocytes/100 leukocytes in Blood by Automated countOrdered By: Adrien Foley on 04-18-2025 Monocytes/100 WBC (Bld) 11.6 % Normal . [facility] Comment on above: Performed By: #### C BC, ALT, LIPID, AST #### [facility] [address] Neutrophils Auto (Bld) [#/Vo l]Ordered By: Adrien Foley on 04-18-2025 Neutrophils (Bld) [#/Vol] Neutrophils [#/volume] in Blood by Automated count 1.8-7.7 [facility] Neutrophils [#/volume] in Bl ood by Automated countOrdered By: Adrien Foley on 04-18-2025 Neutrophils (Bld) [#/Vol] 5.0 10*3/uL Normal 1.8-7.7 [facility] Comment on above: Performed By: #### C BC, ALT, LIPID, AST #### [facility] [address] [place] [address] Neutrophils/100 WBC Auto (Bl d)Ordered By: Adrien Foley on 04-18-2025 Neutrophils/100 WBC (Bld) Automated neutrophil % . [facility] Neutrophils/100 leukocytes i n Blood by Automated countOrdered By: Adrien Foley on 04-18-2025 Neutrophils/100 WBC (Bld) 68.1 % Normal . [facility] Comment on above: Performed By: #### C BC, ALT, LIPID, AST #### [facility] [address] [place] [address] No Panel InformationOrdered By: Epi Paredes on 04-18-2025 [facility] [place] [address] Cardiac Stress Test Signed Patient: López Cortés MR#: [id number] : 1950 Date of Service:0 04/18/25 Age/Sex: 75 / M ADM Date: 5 Loc: Room: Type: [facility] Attending Dr: Adrien Foley PRODUCT SUPPORT MANAGER Copies to: GLORIA Domínguez MD George Augustine [...] under a separate cover. Transcribed By: kaity 04/18/251526 Dictated By: Epi Paredes MD 04/18/251526 Signed By: 04/18/25 1529 [facility] Work Phone: Nucleated erythrocytes [Pres ence] in Blood by Automated countOrdered By: Adrien Foley on 04-18-2025 Nucleated RBC Auto Ql (Bld) Nucleated erythrocytes [Presence] in Blood by Automated count 0-0.5 [facility] Nucleated RBC Auto Ql (Bld) 0.1 /100{WBC} 0-0.5 [facility] Platelet mean volume Auto (B ld) [Entitic vol]Ordered By: Adrien Foley on 04-18-2025 Platelet mean volume (Bld) [Entitic vol] Platelet mean volume [Entitic volume] in Blood by Automated count 6.6-10.1 [facility] Platelet mean volume [Entiti c volume] in Blood by Automated countOrdered By: Adrien Foley on 04-18-2025 Platelet mean volume (Bld) [Entitic vol] 9.0 fL Normal 6.6-10.1 [facility] Comment on above: Performed By: #### C BC, ALT, LIPID, AST #### [facility] [address] Platelets Auto (Bld) [#/Vol] Ordered By: Adrien Foley on 04-18-2025 Platelets (Bld) [#/Vol] Platelets [#/volume] in Blood by Automated count 150-450 [facility] Platelets [#/volume] in Bloo d by Automated countOrdered By: Adrien Foley on 04-18-2025 Platelets (Bld) [#/Vol] 213 10*3/uL Normal 150-450 [facility] Comment on above: Performed By: #### C BC, ALT, LIPID, AST #### [facility] [address] [place] [address] RBC Auto (Bld) [#/Vol]Ordere d By: Adrien Foley on 04-18-2025 RBC (Bld) [#/Vol] Erythrocytes [#/volu me] in Blood by Automated count 3.90-5.60 [facility] Serum or plasma total choles terol/high density lipoprotein (HDL) cholesterol mass ratOrdered By: Adrien Foley on 04-18-2025 Cholesterol.total/Chol esterol in HDL [Mass ratio] Serum or plasma total cholesterol/high density lipoprotein (HDL) cholesterol mass rat <5.0 [facility] Cholesterol.total/Chol esterol in HDL [Mass ratio] 3.0 {ratio} Normal <5.0 [facility] Comment on above: Order Comment: PATHO LOGY SKIN SPECIMEN Result Comment: PERF ORMED BY: [place] [address] PATHOLOGIST HEALTHCARE ADMINISTRATIVE ASSISTANT AMBROSE OLSON M.D. Performed By: #### P ATH TO [facility] #### [facility] [address] [place] [address] Triglyceride [Mass/volume] i n Serum or PlasmaOrdered By: Adrien Foley on 04-18-2025 Triglyceride [Mass/Vol] Triglyceride [Mass/volume] in Serum or Plasma 0-149 [facility] Comment on above: TRIG ATP III CLASSIF ICATIONTRIG less than 150 mg/dL NormalTRIG 150-199 mg/dL Borderline highTRIG 200-500 mg/dL High TRIG greater than 500 mg/dL Very highStandard traceable to the Center for Disease Conrtrol and Prevention (CDC) test method. Triglyceride [Mass/Vol] 89 mg/dL 0-149 [facility] Comment on above: TRIG ATP III CLASSIF ICATIONTRIG less than 150 mg/dL NormalTRIG 150-199 mg/dL Borderline highTRIG 200-500 mg/dL High TRIG greater than 500 mg/dL Very highStandard traceable to the Center for Disease Conrtrol and Prevention (CDC) test method. WBC Auto (Bld) [#/Vol]Ordere d By: Adrien Foley on 04-18-2025 WBC (Bld) [#/Vol] Leukocytes [#/volume ] in Blood by Automated count 4.1-10.5 [facility] Alanine aminotransferase [En zymatic activity/volume] in Serum or PlasmaOrdered By: Adrien Foley on 03-26-2025 ALT [Catalytic activity/Vol] Alanine aminotransferase [Enzymatic activity/volume] in Serum or Plasma [facility] ALT [Catalytic activity/Vol] 26 U/L Normal [facility] Comment on above: Performed By: #### A LT, AST, LIPID, BMP, CBC #### [facility] [address] Aspartate aminotransferase [ Enzymatic activity/volume] in Serum or PlasmaOrdered By: Adrien Foley on 03-26-2025 AST [Catalytic activity/Vol] Aspartate aminotransferase [Enzymatic activity/volume] in Serum or Plasma [facility] AST [Catalytic activity/Vol] 26 U/L Normal [facility] Comment on above: Performed By: #### A LT, AST, LIPID, BMP, CBC #### [facility] [address] Basic Metabolic Panelon Estimated GFR 51.852 mL/Min Normal [facility] Comment on above: Performed By: #### A LT, AST, LIPID, BMP, CBC #### [facility] [address] [place] [address] [place] Basophils Auto (Bld) [#/Vol] Ordered By: Adrien Foley on 03-26-2025 Basophils (Bld) [#/Vol] Automated basophil count 0.0-0.2 [facility] Basophils [#/volume] in Bloo d by Automated countOrdered By: Adrien Foley on 03-26-2025 Basophils (Bld) [#/Vol] 0.1 10*3/uL Normal 0.0-0.2 [facility] Comment on above: Result Comment: PERF ORMED BY: [facility] [address] [place] [address] PATHOLOGIST HEALTHCARE ADMINISTRATIVE ASSISTANT MARCIN JOSEPH M.D. Performed By: #### A LT, AST, LIPID, BMP, CBC #### [facility] [address] [place] [id number] [place] Basophils/100 WBC Auto (Bld) Ordered By: Adrien Foley on 03-26-2025 Basophils/100 WBC (Bld) Automated basophil % . [facility] Basophils/100 leukocytes in Blood by Automated countOrdered By: Adrien Foley on 03-26-2025 Basophils/100 WBC (Bld) 1.1 % Normal . [facility] Comment on above: Performed By: #### A LT, AST, LIPID, BMP, CBC #### [facility] [address] [place] [id number] [facility] Calcium [Mass/volume] in Ser um or PlasmaOrdered By: Adrien Foley on 03-26-2025 Calcium [Mass/Vol] Calcium [Mass/volume ] in Serum or Plasma 8.6-10.3 [facility] Calcium [Mass/Vol] 9.0 mg/dL Normal 8.6-10.3 [facility] Comment on above: Performed By: #### A LT, AST, LIPID, BMP, CBC #### [facility] [address] [place] [id number] [facility] Carbon dioxide, total [Moles /volume] in Serum or PlasmaOrdered By: Adrien Foley on 03-26-2025 CO2 [Moles/Vol] Carbon dioxide, tota l [Moles/volume] in Serum or Plasma 21.0-31.0 [facility] CO2 [Moles/Vol] 27.4 mmol/L Normal 21.0-31.0 [facility] Comment on above: Performed By: #### A LT, AST, LIPID, BMP, CBC #### [facility] [address] [place] [id number] [place] Chloride [Moles/volume] in S chong or PlasmaOrdered By: Adrien Foley on 03-26-2025 Chloride [Moles/Vol] Chloride [Moles/vol ume] in Serum or Plasma 98-107 [facility] Chloride [Moles/Vol] 105 mmol/L Normal 98-107 [facility] Comment on above: Performed By: #### A LT, AST, LIPID, BMP, CBC #### [facility] [address] [place] [id number] [place] Cholesterol [Mass/volume] in Serum or PlasmaOrdered By: Adrien Foley on 03-26-2025 Cholesterol [Mass/Vol] Cholesterol [Mass /volume] in Serum or Plasma 140-200 [facility] Comment on above: Chol less than 200 m g/dl low riskChol 201-239 mg/dl borderline riskChol 240 mg/dl and greater high risk Cholesterol [Mass/Vol] 142 mg/dL Normal 140-200 [facility] Comment on above: Chol less than 200 m g/dl low riskChol 201-239 mg/dl borderline riskChol 240 mg/dl and greater high risk Result Comment: Chol less than 200 mg/dl low risk Chol 201-239 mg/dl borderline risk Chol 240 mg/dl and greater high risk Performed By: #### A LT, AST, LIPID, BMP, CBC #### [facility] [address] [place] [id number] [place] Cholesterol in HDL [Mass/vol ume] in Serum or PlasmaOrdered By: Adrien Foley on 03-26-2025 Cholesterol in HDL [Mass/Vol] Serum or plasma high density lipoprotein (HDL) cholesterol measurement [facility] Comment on above: HDL CHOL ATP-III CLA SSIFICATION Cardiovascular RiskHDL > or equal to 60 mg/dL LOWHDL < 40 mg/dL HIGH Cholesterol in HDL [Mass/Vol] 43 mg/dL Normal [facility] Comment on above: HDL CHOL ATP-III CLA SSIFICATION Cardiovascular RiskHDL > or equal to 60 mg/dL LOWHDL < 40 mg/dL HIGH Result Comment: HDL CHOL ATP-III CLASSIFICATION Cardiovascular Risk HDL > or equal to 60 mg/dL LOW HDL < 40 mg/dL HIGH Performed By: #### A LT, AST, LIPID, BMP, CBC #### [facility] [address] [place] [id number] [place] Cholesterol in LDL Calc [Mas s/Vol]Ordered By: Adrien Foley on 03-26-2025 Cholesterol in LDL [Mass/Vol] Cholesterol in LDL [Mass/volume] in Serum or Plasma by calculation 0-100 [facility] Comment on above: LDL ATP III CLASSIFI CATIONLDL less than 100 mg/dL OptimalLDL 100-129 mg/dL Near or above optimalLDL 130-159 mg/dL Borderline highLDL 160-189 mg/dL HighLDL greater than 189 mg/dL Very high Cholesterol in LDL [Mass/Vol] 85 mg/dL 0-100 [facility] Comment on above: LDL ATP III CLASSIFI CATIONLDL less than 100 mg/dL OptimalLDL 100-129 mg/dL Near or above optimalLDL 130-159 mg/dL Borderline highLDL 160-189 mg/dL HighLDL greater than 189 mg/dL Very high Cholesterol in VLDL Calc [Ma ss/Vol]Ordered By: Adrien Foley on 03-26-2025 Cholesterol in VLDL [Mass/Vol] Cholesterol in VLDL [Mass/volume] in Serum or Plasma by calculation [facility] Cholesterol in VLDL [Mass/Vol] 14 mg/dL [facility] Complete Blood Count Auto Di ffon 03-26-2025 Mean Corpuscular HGB Conc 34.2 g/dL Normal 32.5-35.6 [facility] Comment on above: Performed By: #### A LT, AST, LIPID, BMP, CBC #### [facility] [address] [place] [address] NRBC% 0.1 /100{WBC} Normal 0-0.5 [facility] Comment on above: Performed By: #### A LT, AST, LIPID, BMP, CBC #### [facility] [address] Creatinine [Mass/volume] in Serum or PlasmaOrdered By: Adrien Foley on 03-26-2025 Creatinine [Mass/Vol] Creatinine [Mass/v olume] in Serum or Plasma High 0.70-1.30 [facility] Creatinine [Mass/Vol] 1.42 mg/dL High 0.70-1.30 [facility] Comment on above: Performed By: #### A LT, AST, LIPID, BMP, CBC #### [facility] [address] [place] [address] Eosinophils Auto (Bld) [#/Vo l]Ordered By: Adrien Foley on 03-26-2025 Eosinophils (Bld) [#/Vol] Automated eosinophil count 0.0-0.45 [facility] Eosinophils [#/volume] in Bl ood by Automated countOrdered By: Adrien Foley on 03-26-2025 Eosinophils (Bld) [#/Vol] 0.2 10*3/uL Normal 0.0-0.45 [facility] Comment on above: Performed By: #### A LT, AST, LIPID, BMP, CBC #### [facility] [address] Eosinophils/100 WBC Auto (Bl d)Ordered By: Adrien Foley on 03-26-2025 Eosinophils/100 WBC (Bld) Automated eosinophil % . [facility] Eosinophils/100 leukocytes i n Blood by Automated countOrdered By: Adrien Foley on 03-26-2025 Eosinophils/100 WBC (Bld) 3.7 % Normal . [facility] Comment on above: Performed By: #### A LT, AST, LIPID, BMP, CBC #### [facility] [address] Erythrocyte distribution wid th Auto (RBC) [Ratio]Ordered By: Adrien Foley on 03-26-2025 Erythrocyte distribution width (RBC) [Ratio] Erythrocyte distribution width [Ratio] by Automated count 12.0-14.8 [facility] Erythrocyte distribution wid th [Ratio] by Automated countOrdered By: Adrien Foley on 03-26-2025 Erythrocyte distribution width (RBC) [Ratio] 14.1 % Normal 12.0-14.8 [facility] Comment on above: Performed By: #### A LT, AST, LIPID, BMP, CBC #### [facility] [address] [place] [address] [place] Erythrocytes [#/volume] in B lood by Automated countOrdered By: Adrien Foley on 03-26-2025 RBC (Bld) [#/Vol] 4.96 10*6/uL Normal 3.90-5.60 [facility] Comment on above: Performed By: #### A LT, AST, LIPID, BMP, CBC #### [facility] [address] Glucose [Mass/volume] in Ser um or PlasmaOrdered By: Adrien Foley on 03-26-2025 Glucose [Mass/Vol] Glucose [Mass/volume ] in Serum or Plasma 70-100 [facility] Comment on above: ADA recommended refe rence rangeRandom Glucose Reference Range is dependent on time and content of last meal. Glucose of more than 200 mg/dL in a nonstressed, ambulatory subject supports the diagnosis of Diabetes Mellitus. Glucose [Mass/Vol] 100 mg/dL Normal 70-100 [facility] Comment on above: ADA recommended refe rence rangeRandom Glucose Reference Range is dependent on time and content of last meal. Glucose of more than 200 mg/dL in a nonstressed, ambulatory subject supports the diagnosis of Diabetes Mellitus. Result Comment: [place] om Glucose Reference Range is dependent on time and content of last meal. Glucose of more than 200 mg/dL in a nonstressed, ambulatory subject supports the diagnosis of Diabetes Mellitus. ADA recommended reference range Performed By: #### A LT, AST, LIPID, BMP, CBC #### [facility] [address] Hematocrit Auto (Bld) [Volum e fraction]Ordered By: Adrien Foley on 03-26-2025 Hematocrit (Bld) [Volume fraction] Hematocrit [Volume Fraction] of Blood by Automated count 38.8-50.0 [facility] Hematocrit [Volume Fraction] of Blood by Automated countOrdered By: Adrien Foley on 03-26-2025 Hematocrit (Bld) [Volume fraction] 46.8 % Normal 38.8-50.0 [facility] Comment on above: Performed By: #### A LT, AST, LIPID, BMP, CBC #### [address] Hemoglobin [Mass/volume] in BloodOrdered By: Adrien Foley on 03-26-2025 Hemoglobin (Bld) [Mass/Vol] Hemoglobin [Mass/volume] in Blood 13.0-17.0 [facility] Hemoglobin (Bld) [Mass/Vol] 16.0 g/dL Normal 13.0-17.0 [facility] Comment on above: Performed By: #### A LT, AST, LIPID, BMP, CBC #### [facility] [address] Leukocytes [#/volume] correc zackary for nucleated erythrocytes in Blood by Automated counOrdered By: Adrien Foley on 03-26-2025 WBC corrected for nucl RBC Auto (Bld) [#/Vol] Leukocytes [#/volume] corrected for nucleated erythrocytes in Blood by Automated coun 4.1-10.5 [facility] WBC corrected for nucl RBC Auto (Bld) [#/Vol] 6.6 10*3/uL 4.1-10.5 [facility] Leukocytes [#/volume] in Blo od by Automated countOrdered By: Adrien Foley on 03-26-2025 WBC (Bld) [#/Vol] 6.6 10*3/uL Normal 4.1-10.5 [facility] Comment on above: Performed By: #### A LT, AST, LIPID, BMP, CBC #### [facility] [address] Lipid Panelon 03-26-2025 LDL Cholesterol,Calculated 85 mg/dL Normal 0-100 [facility] Comment on above: Result Comment: LDL ATP III CLASSIFICATION LDL less than 100 mg/dL Optimal LDL 100-129 mg/dL Near or above optimal LDL 130-159 mg/dL Borderline high LDL 160-189 mg/dL High LDL greater than 189 mg/dL Very high Performed By: #### A LT, AST, LIPID, BMP, CBC #### [facility] [address] Triglyceride w/Reflex 71 mg/dL Normal 0-149 [facility] Comment on above: Result Comment: TRIG ATP III CLASSIFICATION TRIG less than 150 mg/dL Normal TRIG 150-199 mg/dL Borderline high TRIG 200-500 mg/dL High TRIG greater than 500 mg/dL Very high Standard traceable to the Center for Disease Conrtrol and Prevention (CDC) test method. Performed By: #### A LT, AST, LIPID, BMP, CBC #### [facility] [address] VLDL CHOLESTEROL 14 mg/dL Normal [facility] Comment on above: Performed By: #### A LT, AST, LIPID, BMP, CBC #### [address] Lymphocytes Auto (Bld) [#/Vo l]Ordered By: Adrien Foley on 03-26-2025 Lymphocytes (Bld) [#/Vol] Lymphocytes [#/volume] in Blood by Automated count 1.00-4.8 [facility] Lymphocytes [#/volume] in Bl ood by Automated countOrdered By: Adrien Foley on 03-26-2025 Lymphocytes (Bld) [#/Vol] 1.4 10*3/uL Normal 1.00-4.8 [facility] Comment on above: Performed By: #### A LT, AST, LIPID, BMP, CBC #### [address] Lymphocytes/100 WBC Auto (Bl d)Ordered By: Adrien Foley on 03-26-2025 Lymphocytes/100 WBC (Bld) Lymphocytes/100 leukocytes in Blood by Automated count . [facility] Lymphocytes/100 leukocytes i n Blood by Automated countOrdered By: Adrien Foley on 03-26-2025 Lymphocytes/100 WBC (Bld) 21.1 % Normal . [facility] Comment on above: Performed By: #### A LT, AST, LIPID, BMP, CBC #### [address] MCH Auto (RBC) [Entitic mass ]Ordered By: Adrien Foley on 03-26-2025 MCH (RBC) [Entitic mass] MCH [Entitic mass] by Automated count 27.5-35.2 [facility] MCH [Entitic mass] by Automa zackary countOrdered By: Adrien Foley on 03-26-2025 MCH (RBC) [Entitic mass] 32.3 pg Normal 27.5-35.2 [facility] Comment on above: Performed By: #### A LT, AST, LIPID, BMP, CBC #### [address] MCHC Auto (RBC) [Mass/Vol]Or dered By: Adrien Foley on 03-26-2025 MCHC (RBC) [Mass/Vol] MCHC [Mass/volume] by Automated count 32.5-35.6 [facility] MCHC (RBC) [Mass/Vol] 34.2 g/dL 32.5-35.6 [facility] MCV Auto (RBC) [Entitic vol] Ordered By: Adrien Foley on 03-26-2025 MCV (RBC) [Entitic vol] MCV [Entitic volume] by Automated count 83.5-101 [facility] MCV [Entitic volume] by Auto mated countOrdered By: Adrien Foley on 03-26-2025 MCV (RBC) [Entitic vol] 94.4 fL Normal 83.5-101 [facility] Comment on above: Performed By: #### A LT, AST, LIPID, BMP, CBC #### [facility] [address] [place] [address] Monocytes Auto (Bld) [#/Vol] Ordered By: Adrien Foley on 03-26-2025 Monocytes (Bld) [#/Vol] Automated blood monocyte count 0.0-0.8 [facility] Monocytes [#/volume] in Bloo d by Automated countOrdered By: Adrien Foley on 03-26-2025 Monocytes (Bld) [#/Vol] 0.8 10*3/uL Normal 0.0-0.8 [facility] Comment on above: Performed By: #### A LT, AST, LIPID, BMP, CBC #### [facility] [address] [place] [address] [place] Monocytes/100 WBC Auto (Bld) Ordered By: Adrien Foley on 03-26-2025 Monocytes/100 WBC (Bld) Automated monocyte % . [facility] Monocytes/100 leukocytes in Blood by Automated countOrdered By: Adrien Foley on 03-26-2025 Monocytes/100 WBC (Bld) 12.1 % Normal . [facility] Comment on above: Performed By: #### A LT, AST, LIPID, BMP, CBC #### [facility] [address] [place] [address] [place] Neutrophils Auto (Bld) [#/Vo l]Ordered By: Adrien Foley on 03-26-2025 Neutrophils (Bld) [#/Vol] Neutrophils [#/volume] in Blood by Automated count 1.8-7.7 [facility] Neutrophils [#/volume] in Bl ood by Automated countOrdered By: Adrien Foley on 03-26-2025 Neutrophils (Bld) [#/Vol] 4.1 10*3/uL Normal 1.8-7.7 [facility] Comment on above: Performed By: #### A LT, AST, LIPID, BMP, CBC #### [facility] [address] Neutrophils/100 WBC Auto (Bl d)Ordered By: Adrien Foley on 03-26-2025 Neutrophils/100 WBC (Bld) Automated neutrophil % . [facility] Neutrophils/100 leukocytes i n Blood by Automated countOrdered By: Adrien Foley on 03-26-2025 Neutrophils/100 WBC (Bld) 62.0 % Normal . [facility] Comment on above: Performed By: #### A LT, AST, LIPID, BMP, CBC #### [facility] [address] No Panel InformationOrdered By: Adrien Foley on 03-26-2025 Estimated GFR (CKD-EPI) 51.852 mL/Min [facility] Creatinine Clearance (Chem N/A [facility] Nucleated erythrocytes [Pres ence] in Blood by Automated countOrdered By: Adrien Foley on 03-26-2025 Nucleated RBC Auto Ql (Bld) Nucleated erythrocytes [Presence] in Blood by Automated count 0-0.5 [facility] Nucleated RBC Auto Ql (Bld) 0.1 /100{WBC} 0-0.5 [facility] Platelet mean volume Auto (B ld) [Entitic vol]Ordered By: Adrien Foley on 03-26-2025 Platelet mean volume (Bld) [Entitic vol] Platelet mean volume [Entitic volume] in Blood by Automated count 6.6-10.1 [facility] Platelet mean volume [Entiti c volume] in Blood by Automated countOrdered By: Adrien Foley on 03-26-2025 Platelet mean volume (Bld) [Entitic vol] 8.8 fL Normal 6.6-10.1 [facility] Comment on above: Performed By: #### A LT, AST, LIPID, BMP, CBC #### [facility] [address] Platelets Auto (Bld) [#/Vol] Ordered By: Adrien Foley on 03-26-2025 Platelets (Bld) [#/Vol] Platelets [#/volume] in Blood by Automated count 150-450 [facility] Platelets [#/volume] in Bloo d by Automated countOrdered By: Adrien Foley on 03-26-2025 Platelets (Bld) [#/Vol] 179 10*3/uL Normal 150-450 [facility] Comment on above: Performed By: #### A LT, AST, LIPID, BMP, CBC #### [address] Potassium [Moles/volume] in Serum or PlasmaOrdered By: Adrien Foley on 03-26-2025 Potassium [Moles/Vol] Potassium [Moles/v olume] in Serum or Plasma 3.5-5.1 [facility] Potassium [Moles/Vol] 4.7 mmol/L Normal 3.5-5.1 [facility] Comment on above: Performed By: #### A LT, AST, LIPID, BMP, CBC #### [address] RBC Auto (Bld) [#/Vol]Ordere d By: Adrien Foley on 03-26-2025 RBC (Bld) [#/Vol] Erythrocytes [#/volu me] in Blood by Automated count 3.90-5.60 [facility] Serum or plasma anion gap de terminationOrdered By: Adrien Foley on 03-26-2025 Anion gap [Moles/Vol] Serum or plasma an ion gap determination 6.0-15.0 [facility] Anion gap [Moles/Vol] 11.3 mmol/L Normal 6.0-15.0 [facility] Comment on above: Performed By: #### A LT, AST, LIPID, BMP, CBC #### [address] Serum or plasma total choles terol/high density lipoprotein (HDL) cholesterol mass ratOrdered By: Adrien Foley on 03-26-2025 Cholesterol.total/Chol esterol in HDL [Mass ratio] Serum or plasma total cholesterol/high density lipoprotein (HDL) cholesterol mass rat <5.0 [facility] Cholesterol.total/Chol esterol in HDL [Mass ratio] 3.3 {ratio} Normal <5.0 [facility] Comment on above: Result Comment: PERF ORMED BY: [place] [address] PATHOLOGIST HEALTHCARE ADMINISTRATIVE ASSISTANT MARCIN JOSEPH M.D. Performed By: #### A LT, AST, LIPID, BMP, CBC #### [facility] [address] Sodium [Moles/volume] in Ser um or PlasmaOrdered By: Adrien Foley on 03-26-2025 Sodium [Moles/Vol] Sodium [Moles/volume ] in Serum or Plasma 136-145 [facility] Sodium [Moles/Vol] 139 mmol/L Normal 136-145 [facility] Comment on above: Performed By: #### A LT, AST, LIPID, BMP, CBC #### [facility] [address] [place] [address] Triglyceride [Mass/volume] i n Serum or PlasmaOrdered By: Adrien Foley on 03-26-2025 Triglyceride [Mass/Vol] Triglyceride [Mass/volume] in Serum or Plasma 0-149 [facility] Comment on above: TRIG ATP III CLASSIF ICATIONTRIG less than 150 mg/dL NormalTRIG 150-199 mg/dL Borderline highTRIG 200-500 mg/dL High TRIG greater than 500 mg/dL Very highStandard traceable to the Center for Disease Conrtrol and Prevention (CDC) test method. Triglyceride [Mass/Vol] 71 mg/dL 0-149 [facility] Comment on above: TRIG ATP III CLASSIF ICATIONTRIG less than 150 mg/dL NormalTRIG 150-199 mg/dL Borderline highTRIG 200-500 mg/dL High TRIG greater than 500 mg/dL Very highStandard traceable to the Center for Disease Conrtrol and Prevention (CDC) test method. Urea nitrogen [Mass/volume] in Serum or PlasmaOrdered By: Adrien Foley on 03-26-2025 Urea nitrogen [Mass/Vol] Urea nitrogen [Mass/volume] in Serum or Plasma 06-14 [facility] Urea nitrogen [Mass/Vol] 24 mg/dL Normal 06-14 [facility] Comment on above: Performed By: #### A LT, AST, LIPID, BMP, CBC #### [facility] [address] WBC Auto (Bld) [#/Vol]Ordere d By: Adrien Foley on 03-26-2025 WBC (Bld) [#/Vol] Leukocytes [#/volume ] in Blood by Automated count 4.1-10.5 [facility] Ambulatory Visit Summaryon 1 12-24-2023 Ambulatory Visit Summary Ambulatory Visit Summary PROSPER CORTÉSHarris Moreno :1950 Visit Date:10/23/2024 Ambulatory Visit Instructions Your Diagnosis Basal cell carcinoma of ear Your Care Team Attending Physician - Hugh ALAS MD Primary Care Physician - Tess [...] for choosing us for your care. Normal [facility] General Surgery Office/Clini c Noteon [...] virus vaccine, inactivated 08/2023 Recorded SARS-CoV-2 (COVID-19) [id number] 09/24/2022 Recorded influenza virus vaccine, inactivated 08/31/2022 Recorded SARSCoV2 mRNA([id number]) vac 03/29/2022 Recorded SARS-CoV-2 (COVID-19) Ad26 vaccine [...] virus vaccine, inactivated 09/09/2016 Recorded Normal [facility] Comment on above: Result Comment: Elec tronically Signed By: EVETTE RILEY, Hugh Castañeda\.br\Date and Time Signed: 10/23/24 08:13 EST Ambulatory Visit Summaryon 1 Ambulatory Visit Summary Ambulatory Visit Summary PROSPER CORTÉSHarris Moreno :1950 Visit Date:09/18/2024 Ambulatory Visit Instructions Your Care Team Attending Physician - EVETTE RILEY, Hugh Castañeda Primary Care Physician - Tess Fuentes [...] Tuesday 8:00 AM EST With: EVETTE RILEY, Hugh Castañeda Where: [facility] Surgery [address], [address], [address] Medications What How Much When Instructions [...] for choosing us for your care. Normal [facility] General Surgery Office/Clini c Noteon [...] virus vaccine, inactivated 08/2023 Recorded SARS-CoV-2 (COVID-19) mRNAMUL.ORD![id number] 09/24/2022 Recorded influenza virus vaccine, inactivated 08/31/2022 Recorded SARSCoV2 mRNA(hizgtaqeu-ouyh-ehjrpm) vac 03/29/2022 Recorded SARS-CoV-2 (COVID-19) Ad26 vaccine [...] virus vaccine, inactivated 09/09/2016 Recorded Normal [facility] Comment on above: Result Comment: Elec tronically Signed By: EVETTE RILEY, Hugh Castañeda\.br\Date and Time Signed: 09/18/24 20:07 EDT Pathology Request for Lab Co rpon 08-29-2024 Pathology Request for Lab Zaira Normal [facility] Comment on above: Order Comment: PATHO LOGY SKIN SPECIMEN Result Comment: See report. Scanned copy available in EMR. PERFORMED BY: [place] [address] PATHOLOGIST HEALTHCARE ADMINISTRATIVE ASSISTANT KIMBERLEE MATHIAS M.D. Performed By: #### P ATH TO [facility] #### [address] Ambulatory Visit Summaryon 0 08-14-2024 Ambulatory Visit Summary Ambulatory Visit Summary LÓPEZ CORTÉS Tiffanie :1950 Visit Date:08/14/2024 Ambulatory Visit Instructions Your Care Team Attending Physician - Hugh ALAS MD Primary Care Physician - Tess [...] for choosing us for your care. [facility] General Surgery Office/Clini c Noteon [...] plan wide excision under local anesthesia at [facility], informed consent obtained. Follow-up No [...] virus vaccine, inactivated 08/2023 Recorded SARS-CoV-2 (COVID-19) mRNAMUL.ORD![id number] 09/24/2022 Recorded influenza virus vaccine, inactivated 08/31/2022 Recorded SARSCoV2 mRNA(sbqnptsuj-jjsm-hgaulo) vac 03/29/2022 Recorded SARS-CoV-2 (COVID-19) Ad26 vaccine 09/2021 Recorded SARS-CoV-2 (COVID-19) mRNA-1273 vaccine 09/13/2021 Recorded SARS-CoV-2 (COVID-19) Ad26 vaccine 02/2021 Recorded SARS-CoV-2 (COVID-19) mRNA-1273 vaccine 02/04/2021 Recorded SARS-CoV-2 (COVID-19) Ad26 vaccine 01/2021 Recorded SARS-CoV-2 (COVID-19) mRNA-1273 vaccine 01/07/2021 Recorded influenza virus vaccine, inactivated 09/03/2020 Recorded influenza virus vaccine, inactivated (more content not included)... Normal [facility] Comment on above: Result Comment: Elec tronically Signed By: EVETTE RILEY, Hugh Varela\Date and Time Signed: 08/14/24 15:06 EDT INSULINon 01-28-2023 Insulin 15.8 uIU/mL Normal 2.6-24.9 [facility] Comment on above: Performed By: #### I NSULIN #### [facility] [address] [place] [address] Dr. Braulio Fritz CBC AUTO DIFFon 01-27-2023 BASO # 0.0 103/ul Normal 0.0-0.1 [facility] Comment on above: Performed By: #### I NSULIN #### [facility] [address] [place] [address] Dr. Braulio Fritz Basophils/100 WBC (Bld) 0.5 % Normal 0.2-2.0 [facility] Comment on above: Performed By: #### I NSULIN #### [facility] [address] [place] [address] Dr. Braulio Fritz EO # 0.3 103/ul Normal 0.0-0.7 [facility] Comment on above: Performed By: #### I NSULIN #### [facility] [address] [address] [address] Braulio Fritz Eosinophils/100 WBC (Bld) 3.2 % Normal 0.9-7.0 [facility] Comment on above: Performed By: #### I NSULIN #### [facility] [address] [place] [address] Dr. Braulio Fritz Erythrocyte distribution width (RBC) [Ratio] 14.8 % Normal 11.0-15.0 [facility] Comment on above: Performed By: #### I NSULIN #### [facility] [address] [place] [address] Dr. Braulio Fritz Hematocrit (Bld) [Volume fraction] 48.1 % Normal 42.0-54.0 [facility] Comment on above: Performed By: #### I NSULIN #### [facility] [address] [place] [address] Dr. Braulio Fritz Hemoglobin (Bld) [Mass/Vol] 16.1 g/dL Normal 14.0-18.0 [facility] Comment on above: Performed By: #### I NSULIN #### [facility] [address] [place] [address] Dr. Braulio Fritz IG # 0.05 10e3/ul Critically high 0.00-0.03 [facility] Comment on above: Performed By: #### I NSULIN #### [facility] [address] [place] [address] Dr. Braulio Fritz IG % 0.6 % Critically high 0.0-0.5 [facility] Comment on above: Performed By: #### I NSULIN #### [facility] [address] [place] [address] Dr. Braulio Fritz LYMPH # 2.2 103/ul Normal 1.2-3.8 [facility] Comment on above: Performed By: #### I NSULIN #### [facility] [address] [place] [address] Dr. Braulio Fritz Lymphocytes/100 WBC (Bld) 25.7 % Normal 20.5-60.0 [facility] Comment on above: Performed By: #### I NSULIN #### [facility] [address] [place] [address] Dr. Braulio Fritz MANUAL DIFF REQ NO Normal [facility] Comment on above: Performed By: #### I NSULIN #### [facility] [address] [place] [address] Dr. Braulio Fritz MCH (RBC) [Entitic mass] 31.7 pg Normal 25.9-34.0 [facility] Comment on above: Performed By: #### I NSULIN #### [facility] [address] [place] [address] Dr. Braulio Fritz MCHC (RBC) [Mass/Vol] 33.5 g/dL Normal 29.9-35.2 [facility] Comment on above: Performed By: #### I NSULIN #### [facility] [address] [place] [address] Dr. Braulio Fritz MCV (RBC) [Entitic vol] 94.7 fL Critically high 80.0-94.0 [facility] Comment on above: Performed By: #### I NSULIN #### [facility] [address] [address] [address] Braulio Fritz MONO # 0.9 103/ul Critically high 0.3-0.8 [facility] Comment on above: Performed By: #### I NSULIN #### [facility] [address] [address] [address] Braulio Fritz Monocytes/100 WBC (Bld) 10.5 % Normal 1.7-12.0 [facility] Comment on above: Performed By: #### I NSULIN #### [facility] [address] [place] [address] Dr. Braulio Fritz NEUT # 5.1 103/ul Normal 1.4-6.5 [facility] Comment on above: Performed By: #### I NSULIN #### [facility] [address] [place] [address] Dr. Braulio Fritz Neutrophils/100 WBC (Bld) 59.5 % Normal 43.0-75.0 [facility] Comment on above: Performed By: #### I NSULIN #### [facility] [address] [place] [address] Dr. Braulio Fritz Platelet mean volume (Bld) [Entitic vol] 10.5 fL Normal 9.5-13.5 [facility] Comment on above: Performed By: #### I NSULIN #### [facility] [address] [place] [address] Dr. Braulio Fritz PLT 187 103/ul Normal 150-450 [facility] Comment on above: Performed By: #### I NSULIN #### [facility] [address] [address] [address] Braulio Fritz RBC 5.08 106/ul Normal 4.70-6.10 [facility] Comment on above: Performed By: #### I NSULIN #### [facility] [address] [place] [address] Dr. Braulio Fritz WBC 8.5 103/ul Normal 4.0-11.0 [facility] Comment on above: Performed By: #### I NSULIN #### [facility] [address] [place] [address] Dr. Braulio Fritz FREE THYROXINE INDEX T7on FTI 2.39 Normal 1.30-4.50 [facility] Comment on above: Performed By: #### I NSULIN #### [facility] [address] [place] [address] Dr. Braulio Fritz T3U 38.0 % Normal 33.0-40.0 [facility] Comment on above: Performed By: #### I NSULIN #### [facility] [address] [place] [address] Dr. Braulio Fritz T4 [Mass/Vol] 6.30 ug/dL Normal 4.50-12.10 [facility] Comment on above: Performed By: #### I NSULIN #### [facility] [address] [place] [address] Dr. Braulio Fritz GLYCOHEMOGLOBIN A1Con 2022 ADA RECOMMENDATION SEE BELOW Normal [facility] Comment on above: Result Comment: ADA RECOMMENDED LIMIT 4.0 - 6.0 ADA THERAPEUTIC TARGET < 7.0 ACTION SUGGESTED > 7.0 Performed By: #### A 1C #### [facility] [address] [place] [address] Dr. Braulio Fritz Glucose [Mass/Vol] 111 mg/dL Normal [facility] Comment on above: Performed By: #### A 1C #### [facility] [address] [place] [address] Dr. Braulio Fritz HbA1c (Bld) [Mass fraction] 5.5 % Normal 4.5-6.2 [facility] Comment on above: Performed By: #### A 1C #### [facility] [address] [place] [address] Dr. Braulio Fritz LIPID PROFILEon 01-27-2023 CHOL-HDL RATIO NORM SEE BELOW Normal [facility] Comment on above: Result Comment: 3.3 - 4.4 LOW RISK 4.4 - 7.1 AVERAGE RISK 7.1 - 11.0 MODERATE RISK >11.0 HIGH RISK Performed By: #### I NSULIN #### [facility] [address] [address] [address] Braulio Fritz Cholesterol [Mass/Vol] 162 mg/dL Normal <=200 [facility] Comment on above: Performed By: #### I NSULIN #### [facility] [address] [address] [address] Braulio Fritz Cholesterol in HDL [Mass/Vol] 48 mg/dL Normal 40-60 [facility] Comment on above: Performed By: #### I NSULIN #### [facility] [address] [address] [address] Braulio Fritz Cholesterol in LDL [Mass/Vol] 91.6 mg/dL Normal [facility] Comment on above: Performed By: #### I NSULIN #### [facility] [address] [address] [address] Braulio Fritz Cholesterol.total/Chol esterol in HDL [Mass ratio] 3.4 {ratio} Normal [facility] Comment on above: Performed By: #### I NSULIN #### [facility] [address] [address] [address] Braulio Fritz HDL NORMAL > or = 60 mg/dl - LO W CARDIOVASCULAR RISK <40 mg/dl - HIGH CARDIOVASCULAR RISK Normal [facility] Comment on above: Performed By: #### I NSULIN #### [facility] [address] [address] [address] Braulio Fritz LDL CALC NORMAL SEE BELOW Normal [facility] Comment on above: Result Comment: <100 mg/dl OPTIMAL 100 - 129 mg/dl NEAR OR ABOVE OPTIMAL 130 - 159 mg/dl BORDERLINE HIGH 160 - 189 mg/dl HIGH >190 mg/dl VERY HIGH Performed By: #### I NSULIN #### [facility] [address] [address] [address] Braulio Fritz Triglyceride [Mass/Vol] 112 mg/dL Normal <=150 [facility] Comment on above: Performed By: #### I NSULIN #### [facility] [address] [address] [address] Braulio Fritz VLDL CALC 22.4 mg/dL Normal [facility] Comment on above: Performed By: #### I NSULIN #### [facility] [address] [address] [address] Braulio Fritz PROF 14(COMP METB)on 023 Albumin [Mass/Vol] 3.6 g/dL Normal 3.4-5.0 [facility] Comment on above: Performed By: #### I NSULIN #### [facility] [address] [address] [address] Braulio Fritz Albumin/Globulin [Mass ratio] 1.1 {ratio} Normal [facility] Comment on above: Performed By: #### I NSULIN #### [facility] [address] [address] [address] Braulio Fritz ALP [Catalytic activity/Vol] 111 U/L Normal 46-116 [facility] Comment on above: Performed By: #### I NSULIN #### [facility] [address] [place] [address] Dr. Braulio Fritz ALT [Catalytic activity/Vol] 31 U/L Normal 16-63 [facility] Comment on above: Performed By: #### I NSULIN #### [facility] [address] [address] [address] Braulio Fritz Anion gap [Moles/Vol] 12.6 mmol/L Normal [facility] Comment on above: Performed By: #### I NSULIN #### [facility] [address] [place] [address] Dr. Braulio Fritz AST [Catalytic activity/Vol] 23 U/L Normal 15-37 [facility] Comment on above: Performed By: #### I NSULIN #### [facility] [address] [place] [address] Dr. Braulio Fritz Bilirubin [Mass/Vol] 1.7 mg/dL Critically high 0.2-1.0 [facility] Comment on above: Performed By: #### I NSULIN #### [facility] [address] [place] [address] Dr. Braulio Fritz Calcium [Mass/Vol] 9.1 mg/dL Normal 8.5-10.1 [facility] Comment on above: Performed By: #### I NSULIN #### [facility] [address] [address] [address] Braulio Fritz Chloride [Moles/Vol] 107 mmol/L Normal 98-107 [facility] Comment on above: Performed By: #### I NSULIN #### [facility] [address] [address] [address] Braulio Fritz CO2 [Moles/Vol] 28.7 mmol/L Normal 21.0-32.0 [facility] Comment on above: Performed By: #### I NSULIN #### [facility] [address] [address] [address] Braulio Fritz Creatinine [Mass/Vol] 1.41 mg/dL Critically high 0.70-1.30 [facility] Comment on above: Performed By: #### I NSULIN #### [facility] [address] [address] [address] Braulio Fritz EGFR-AF IRISH 60 mL/min/1.73m2 Normal >=60 [facility] Comment on above: Performed By: #### I NSULIN #### [facility] [address] [address] [address] Braulio Fritz EGFR-NON AF IRISH 49 mL/min/1.73m2 Critically low >=60 [facility] Comment on above: Performed By: #### I NSULIN #### [facility] [address] [address] [address] Braulio Fritz Globulin (S) [Mass/Vol] 3.2 g/dL Normal [facility] Comment on above: Performed By: #### I NSULIN #### [facility] [address] [address] [address] Braulio Fritz Glucose [Mass/Vol] 95 mg/dL Normal 74-106 [facility] Comment on above: Performed By: #### I NSULIN #### [facility] [address] [address] [address] Braulio Fritz Potassium [Moles/Vol] 4.3 mmol/L Normal 3.5-5.1 [facility] Comment on above: Performed By: #### I NSULIN #### [facility] [address] [address] [address] Braulio Fritz Protein [Mass/Vol] 6.8 g/dL Normal 6.4-8.2 [facility] Comment on above: Performed By: #### I NSULIN #### [facility] [address] [address] [address] Braulio Fritz Sodium [Moles/Vol] 144 mmol/L Normal 136-145 [facility] Comment on above: Performed By: #### I NSULIN #### [facility] [address] [address] [address] Braulio Fritz Urea nitrogen [Mass/Vol] 24.0 mg/dL Critically high 7.0-18.0 [facility] Comment on above: Performed By: #### I NSULIN #### [facility] [address] [place] [address] Dr. Braulio Fritz Urea nitrogen/Creatinine [Mass ratio] 17.0 mg/mg Normal [facility] Comment on above: Performed By: #### I NSULIN #### [facility] [address] [address] [address] Braulio Fritz [facility] SED [facility]ATE 19 mm/hr Normal <=20 [facility] Comment on above: Performed By: #### I NSULIN #### [facility] [address] [place] [address] Dr. Braulio Fritz TSHon 01-27-2023 TSH 0.882 uIU/mL Normal 0.358-3.74 0 [facility] Comment on above: Performed By: #### I NSULIN #### [facility] [address] [address] [address] Braulio Fritz URIC ACID SERUMon 01-27-2023 Urate [Mass/Vol] 7.3 mg/dL Critically high 3.5-7.2 [facility] Comment on above: Performed By: #### I NSULIN #### [facility] [address] [place] [address] Dr. Braulio Fritz VITAMIN D 25 OHon 01-27-2023 VIT D 25-OH 44.5 ng/mL Normal [facility] Comment on above: Performed By: #### P SASC, VITAD #### [facility] [address] [place] [address] Dr. Braulio Fritz VIT D RANGES SEE BELOW Normal [facility] Comment on above: Result Comment: <20 ng/mL Vit D deficient 20 - <30 ng/mL Vit D insufficient 30 - 100 ng/mL Vit D sufficient >100 ng/mL Potential Toxicity Performed By: #### P SASC, VITAD #### [facility] [address] [address] [address] Braulio Fritz T4 [facility] 04-16-2022 T4 [Mass/Vol] 6.6 ug/dL Normal 4.5-12.0 [facility] Comment on above: Performed By: #### I NSULIN #### [facility] [address] [place] [address] Dr. Braulio Fritz NM STRESS/REST MULTIon 04-15 NM STRESS/REST MULTI Patient: JOSY CORTÉS Exam Date: 04/15/2022 : 1950 Gender:M Ordering : DR TESS FUENTES . Admission #: [id number] Family : Order #: [id number] CLICK HERE TO VIEW EXAM RADIOLOGY REPORT [...] Stahl M.D. on 04/16/2022 at 13:16 Normal [facility] ECHOCARDIO M/2D COMPLETEon 0 04-13-2022 ECHOCARDIO M/2D COMPLETE Patient: LÓPEZ CORTÉS Exam Date: 04/13/2022 : 1950 Gender:M Ordering : DR TESS FUENTES . Admission #: [id number] Family : Order #: [id number] CLICK HERE TO VIEW EXAM ECHOCARDIOGRAM REPORT [...] Area(A4C): 20.60 cm2 Left Atrium Systolic Volume(A2C): 25223 mm3 Left Atrium Systolic Volume(A4C): 25230 mm3 Mitral Valve MV E to A [...] M.D. on 04/13/2022 at 11:36 Normal [facility] BLD IMMUNO SCREENon 03-22 OCCULT BLOOD Negative Normal NEGATIVE [facility] Comment on above: Performed By: #### O BSCRN #### [facility] [address] [place] [address] Dr. Braulio Fritz INSULINon 04-12-2022 Insulin 18.7 uIU/mL Normal 2.6-24.9 [facility] Comment on above: Performed By: #### I NSULIN #### [facility] [address] [place] [address] Dr. Braulio Fritz BNPon 04-10-2022 Natriuretic peptide B (Bld) [Mass/Vol] 672.0 pg/mL Normal <=900.0 [facility] Comment on above: Performed By: #### A 1C #### [facility] [address] [place] [address] Dr. Braulio Fritz CBC AUTO DIFFon 04-10-2022 BASO # 0.1 103/ul Normal 0.0-0.1 [facility] Comment on above: Performed By: #### I NSULIN #### [facility] [address] [place] [address] Dr. Braulio Fritz Basophils/100 WBC (Bld) 0.8 % Normal 0.2-2.0 [facility] Comment on above: Performed By: #### I NSULIN #### [facility] [address] [place] [address] Dr. Braulio Fritz EO # 0.3 103/ul Normal 0.0-0.7 [facility] Comment on above: Performed By: #### I NSULIN #### [facility] [address] [place] [address] Dr. Braulio Fritz Eosinophils/100 WBC (Bld) 4.0 % Normal 0.9-7.0 [facility] Comment on above: Performed By: #### I NSULIN #### [facility] [address] [place] [address] Dr. Braulio Fritz Erythrocyte distribution width (RBC) [Ratio] 13.7 % Normal 11.0-15.0 [facility] Comment on above: Performed By: #### I NSULIN #### [facility] [address] [place] [address] Dr. Braulio Fritz Hematocrit (Bld) [Volume fraction] 47.7 % Normal 42.0-54.0 [facility] Comment on above: Performed By: #### I NSULIN #### [facility] [address] [place] [address] Dr. Braulio Fritz Hemoglobin (Bld) [Mass/Vol] 15.9 g/dL Normal 14.0-18.0 [facility] Comment on above: Performed By: #### I NSULIN #### [facility] [address] [place] [address] Dr. Braulio Fritz IG # 0.02 10e3/ul Normal 0.00-0.03 [facility] Comment on above: Performed By: #### I NSULIN #### [facility] [address] [place] [address] Dr. Braulio Fritz IG % 0.3 % Normal 0.0-0.5 [facility] Comment on above: Performed By: #### I NSULIN #### [facility] [address] [place] [address] Dr. Braulio Fritz LYMPH # 1.6 103/ul Normal 1.2-3.8 [facility] Comment on above: Performed By: #### I NSULIN #### [facility] [address] [place] [address] Dr. Braulio Fritz Lymphocytes/100 WBC (Bld) 24.6 % Normal 20.5-60.0 [facility] Comment on above: Performed By: #### I NSULIN #### [facility] [address] [place] [address] Dr. Braulio Fritz MANUAL DIFF REQ NO Normal [facility] Comment on above: Performed By: #### I NSULIN #### [facility] [address] [place] [address] Dr. Braulio Fritz MCH (RBC) [Entitic mass] 31.6 pg Normal 25.9-34.0 [facility] Comment on above: Performed By: #### I NSULIN #### [facility] [address] [place] [address] Dr. Braulio Fritz MCHC (RBC) [Mass/Vol] 33.3 g/dL Normal 29.9-35.2 [facility] Comment on above: Performed By: #### I NSULIN #### [facility] [address] [place] [address] Dr. Braulio Fritz MCV (RBC) [Entitic vol] 94.8 fL Critically high 80.0-94.0 [facility] Comment on above: Performed By: #### I NSULIN #### [facility] [address] [place] [address] Dr. Braulio Fritz MONO # 0.7 103/ul Normal 0.3-0.8 [facility] Comment on above: Performed By: #### I NSULIN #### [facility] [address] [place] [address] Dr. Braulio Fritz Monocytes/100 WBC (Bld) 11.2 % Normal 1.7-12.0 [facility] Comment on above: Performed By: #### I NSULIN #### [facility] [address] [place] [address] Dr. Braulio Fritz NEUT # 3.8 103/ul Normal 1.4-6.5 [facility] Comment on above: Performed By: #### I NSULIN #### [facility] [address] [place] [address] Dr. Braulio Fritz Neutrophils/100 WBC (Bld) 59.1 % Normal 43.0-75.0 [facility] Comment on above: Performed By: #### I NSULIN #### [facility] [address] [place] [address] Dr. Braulio Fritz Platelet mean volume (Bld) [Entitic vol] 10.0 fL Normal 9.5-13.5 [facility] Comment on above: Performed By: #### I NSULIN #### [facility] [address] [place] [address] Dr. Braulio Fritz PLT 210 103/ul Normal 150-450 [facility] Comment on above: Performed By: #### I NSULIN #### [facility] [address] [place] [address] Dr. Braulio Fritz RBC 5.03 106/ul Normal 4.70-6.10 [facility] Comment on above: Performed By: #### I NSULIN #### [facility] [address] [address] [address] Braulio Fritz WBC 6.5 103/ul Normal 4.0-11.0 [facility] Comment on above: Performed By: #### I NSULIN #### [facility] [address] [address] [address] Braulio Fritz FREE THYROXINE INDEX T7on FTI 2.64 Normal 1.30-4.50 [facility] Comment on above: Performed By: #### A 1C #### [facility] [address] [place] [address] Dr. Braulio Fritz T3U 40.0 % Normal 33.0-40.0 [facility] Comment on above: Performed By: #### A 1C #### [facility] [address] [address] [address] Braulio Fritz T4 [Mass/Vol] 6.60 ug/dL Normal 4.50-12.10 [facility] Comment on above: Performed By: #### A 1C #### [facility] [address] [address] [address] Braulio Fritz GLYCOHEMOGLOBIN A1Con 2021 ADA RECOMMENDATION SEE BELOW Normal [facility] Comment on above: Result Comment: ADA RECOMMENDED LIMIT 4.0 - 6.0 ADA THERAPEUTIC TARGET < 7.0 ACTION SUGGESTED > 7.0 Performed By: #### A 1C #### [facility] [address] [address] [address] Braulio Fritz Glucose [Mass/Vol] 114 mg/dL Normal [facility] Comment on above: Performed By: #### A 1C #### [facility] [address] [place] [address] Dr. Braulio Fritz HbA1c (Bld) [Mass fraction] 5.6 % Normal 4.5-6.2 [facility] Comment on above: Performed By: #### A 1C #### [facility] [address] [address] [address] Braulio Fritz IRONon 04-10-2022 Iron [Mass/Vol] 105.0 ug/dL Normal 65.0-175.0 [facility] Comment on above: Performed By: #### B 12FOL, VITAD, PSASC, IRON #### [facility] [address] [address] [address] Braulio Fritz LIPID PROFILEon 04-10-2022 CHOL-HDL RATIO NORM SEE BELOW Normal [facility] Comment on above: Result Comment: 3.3 - 4.4 LOW RISK 4.4 - 7.1 AVERAGE RISK 7.1 - 11.0 MODERATE RISK >11.0 HIGH RISK Performed By: #### A 1C #### [facility] [address] [place] [address] Dr. Braulio Fritz Cholesterol [Mass/Vol] 132 mg/dL Normal <=200 [facility] Comment on above: Performed By: #### A 1C #### [facility] [address] [place] [address] Dr. Braulio Fritz Cholesterol in HDL [Mass/Vol] 38 mg/dL Critically low 40-60 [facility] Comment on above: Performed By: #### A 1C #### [facility] [address] [address] [address] Braulio Fritz Cholesterol in LDL [Mass/Vol] 71.2 mg/dL Normal [facility] Comment on above: Performed By: #### A 1C #### [facility] [address] [address] [address] Braulio Fritz Cholesterol.total/Chol esterol in HDL [Mass ratio] 3.5 {ratio} Normal [facility] Comment on above: Performed By: #### A 1C #### [facility] [address] [place] [address] Dr. Braulio Fritz HDL NORMAL > or = 60 mg/dl - LO W CARDIOVASCULAR RISK <40 mg/dl - HIGH CARDIOVASCULAR RISK Normal [facility] Comment on above: Performed By: #### A 1C #### [facility] [address] [place] [address] Dr. Braulio Fritz LDL CALC NORMAL SEE BELOW Normal [facility] Comment on above: Result Comment: <100 mg/dl OPTIMAL 100 - 129 mg/dl NEAR OR ABOVE OPTIMAL 130 - 159 mg/dl BORDERLINE HIGH 160 - 189 mg/dl HIGH >190 mg/dl VERY HIGH Performed By: #### A 1C #### [facility] [address] [place] [address] Dr. Braulio Fritz Triglyceride [Mass/Vol] 114 mg/dL Normal <=150 [facility] Comment on above: Performed By: #### A 1C #### [facility] [address] [address] [address] Braulio Fritz VLDL CALC 22.8 mg/dL Normal [facility] Comment on above: Performed By: #### A 1C #### [facility] [address] [place] [address] Dr. Braulio Fritz PROF 14(COMP METB)on 022 Albumin [Mass/Vol] 3.5 g/dL Normal 3.4-5.0 [facility] Comment on above: Performed By: #### A 1C #### [facility] [address] [place] [address] Dr. Braulio Fritz Albumin/Globulin [Mass ratio] 1.0 {ratio} Normal [facility] Comment on above: Performed By: #### A 1C #### [facility] [address] [place] [address] Dr. Braulio Fritz ALP [Catalytic activity/Vol] 115 U/L Normal 46-116 [facility] Comment on above: Performed By: #### A 1C #### [facility] [address] [place] [address] Dr. Braulio Fritz ALT [Catalytic activity/Vol] 29 U/L Normal 16-63 [facility] Comment on above: Performed By: #### A 1C #### [facility] [address] [place] [address] Dr. Braulio Fritz Anion gap [Moles/Vol] 10.9 mmol/L Normal [facility] Comment on above: Performed By: #### A 1C #### [facility] [address] [place] [address] Dr. Braulio Fritz AST [Catalytic activity/Vol] 23 U/L Normal 15-37 [facility] Comment on above: Performed By: #### A 1C #### [facility] [address] [address] [address] Braulio Fritz Bilirubin [Mass/Vol] 1.3 mg/dL Critically high 0.2-1.0 [facility] Comment on above: Performed By: #### A 1C #### [facility] [address] [address] [address] Braulio Fritz Calcium [Mass/Vol] 8.8 mg/dL Normal 8.5-10.1 [facility] Comment on above: Performed By: #### A 1C #### [facility] [address] [place] [address] Dr. Braulio Fritz Chloride [Moles/Vol] 106 mmol/L Normal 98-107 [facility] Comment on above: Performed By: #### A 1C #### [facility] [address] [address] [address] Braulio Fritz CO2 [Moles/Vol] 27.5 mmol/L Normal 21.0-32.0 [facility] Comment on above: Performed By: #### A 1C #### [facility] [address] [place] [address] Dr. Braulio Fritz Creatinine [Mass/Vol] 1.68 mg/dL Critically high 0.70-1.30 [facility] Comment on above: Performed By: #### A 1C #### [facility] [address] [place] [address] Dr. Braulio Fritz EGFR-AF IRISH 49 mL/min/1.73m2 Critically low >=60 [facility] Comment on above: Performed By: #### A 1C #### [facility] [address] [address] [address] Braulio Fritz EGFR-NON AF IRISH 40 mL/min/1.73m2 Critically low >=60 [facility] Comment on above: Performed By: #### A 1C #### [facility] [address] [address] [address] Braulio Fritz Globulin (S) [Mass/Vol] 3.6 g/dL Normal [facility] Comment on above: Performed By: #### A 1C #### [facility] [address] [place] [address] Dr. Braulio Fritz Glucose [Mass/Vol] 109 mg/dL Critically high 74-106 T [facility] Comment on above: Performed By: #### A 1C #### [facility] [address] [address] [address] Braulio Fritz Potassium [Moles/Vol] 4.4 mmol/L Normal 3.5-5.1 [facility] Comment on above: Performed By: #### A 1C #### [facility] [address] [place] [address] Dr. Braulio Fritz Protein [Mass/Vol] 7.1 g/dL Normal 6.4-8.2 [facility] Comment on above: Performed By: #### A 1C #### [facility] [address] [place] [address] Dr. Braulio Fritz Sodium [Moles/Vol] 140 mmol/L Normal 136-145 [facility] Comment on above: Performed By: #### A 1C #### [facility] [address] [place] [address] Dr. Braulio Fritz Urea nitrogen [Mass/Vol] 24.0 mg/dL Critically high 7.0-18.0 [facility] Comment on above: Performed By: #### A 1C #### [facility] [address] [place] [address] Dr. Braulio Fritz Urea nitrogen/Creatinine [Mass ratio] 14.3 mg/mg Normal [facility] Comment on above: Performed By: #### A 1C #### [facility] [address] [place] [address] Dr. Braulio Fritz TSHon 04-10-2022 TSH 0.740 uIU/mL Normal 0.358-3.74 0 [facility] Comment on above: Performed By: #### A 1C #### [facility] [address] [place] [address] Dr. Braulio Fritz TSH RANGE SEE BELOW Normal [facility] Comment on above: Result Comment: <0.3 4 UIU/ml HYPERTHYROID 0.34-5.60 UIU/ml EUTHYROID >5.60 UIU/ml HYPOTHYROID Performed By: #### A 1C #### [facility] [address] [place] [address] Dr. Braulio Fritz VIT B12 AND FOLATEon 022 Cobalamin (Vitamin B12) [Mass/Vol] 547.0 pg/mL Normal 193.0-986. 0 [facility] Comment on above: Performed By: #### B 12FOL, VITAD, PSASC, IRON #### [facility] [address] [address] [address] Braulio Fritz FOLATE 17.80 ng/mL Normal 8.60-58.90 [facility] Comment on above: Performed By: #### B 12FOL, VITAD, PSASC, IRON #### [facility] [address] [place] [address] Dr. Braulio Fritz VITAMIN D 25 OHon 04-10-2022 VIT D 25-OH 50.4 ng/mL Normal [facility] Comment on above: Performed By: #### B 12FOL, VITAD, PSASC, IRON #### [facility] [address] [place] [address] Dr. Braulio Fritz VIT D RANGES SEE BELOW Normal [facility] Comment on above: Result Comment: <20 ng/mL Vit D deficient 20 - <30 ng/mL Vit D insufficient 30 - 100 ng/mL Vit D sufficient >100 ng/mL Potential Toxicity Performed By: #### B 12FOL, VITAD, PSASC, IRON #### [facility] [address] [place] [address] Dr. Braulio Fritz XR CHEST 2 Von [...] by: RJ LEON Date: 2022-04-09 12:41 Normal [facility] SMALL JOINT/BURSA INJECTION AND/OR ASPIRATION: L thumb CMCon 02-17-2022 Juninarciso Parker 02/19/20 22 5:31 PM SMALL JOINT/BURSA [...] fashion. The patient was prepped with alcohol. [facility] C REACTIVE PROTEINon 022 CRP [Mass/Vol] 11.2 mg/L High 0-10.0 [facility] Comment on above: Performed By: #### C REACT, ESR #### Testing performed at [address] [address] ESRon 11-27-2021 ESR (Bld) [Velocity] 27 mm/h High 0-20 [facility] Comment on above: Performed By: #### C REACT, ESR #### Testing performed at [address] [address] C REACTIVE PROTEINon 021 CRP [Mass/Vol] 6.9 mg/L 0 - 10.0 MG/L [facility] SEDIMENTATION RATE, AUTOMATE Don 10-29-2021 ESR (Bld) [Velocity] 33 mm/h High [facility] Interpretation and review of laboratory results Abnormal [facility] CBC, EDIF, PLATELETon 2019 ABSOLUTE BASOPHIL COUNT 0.1 10*3/uL 0 - 0.2 10*3/uL [facility] Basophils/100 WBC (Bld) 0.5 % 0 - 2 % [facility] Differential cell count method Nom (Bld) AUTO DIFF % [facility] Eosinophils (Bld) [#/Vol] 0.00 10*3/uL 0 - 0.7 10*3/uL [facility] Eosinophils/100 WBC (Bld) 0.1 % 0 - 11 % [facility] Erythrocyte distribution width (RBC) [Ratio] 16.4 % High 11.5 - 14.5 % [facility] Hematocrit (Bld) [Volume fraction] 34.0 % Low 42 - 52 % [facility] Hemoglobin (Bld) [Mass/Vol] 10.9 g/dL Low [facility] Interpretation and review of laboratory results Abnormal [facility] Lymphocytes (Bld) [#/Vol] 0.90 10*3/uL Low 1.2 - 3.4 10*3/uL [facility] Lymphocytes/100 WBC (Bld) 6.9 % Low 20 - 55 % [facility] MCH (RBC) [Entitic mass] 27.8 pg 26 - 35 PG [facility] MCHC (RBC) [Mass/Vol] 32.1 g/dL [facility] MCV (RBC) [Entitic vol] 86.4 fL [facility] Monocytes (Bld) [#/Vol] 0.9 10*3/uL High 0 - 0.7 10*3/uL [facility] Monocytes/100 WBC (Bld) 7.1 % 0 - 10 % [facility] Neutrophils (Bld) [#/Vol] 11.2 10*3/uL High 1.4 - 6.5 10*3/uL [facility] Neutrophils/100 WBC (Bld) 85.4 % High 37 - 75 % [facility] Platelet mean volume (Bld) [Entitic vol] 8.1 fL [facility] Platelets (Bld) [#/Vol] 247 10*3/uL 130 - 400 10*3/uL [facility] RBC (Bld) [#/Vol] 3.93 10*6/uL Low 4 - 6.1 10*6/uL [facility] WBC (Bld) [#/Vol] 13.1 10*3/uL High 3.6 - 11 10*3/uL [facility] REPEAT ABO/RH (D) TYPINGon 1 12-29-2019 ABO and Rh group Nom (Bld ) Positive [facility] XR KNEE LEFT 2 VIEWSon 10-28 IMPRESSION: Status p ost total knee arthroplasty revision with expected postoperative changes. [facility] EXAM: XR KNEE LEFT 2 VIEWS HISTORY: [...] the soft tissues with overlying skin elizabeth. [facility] User, Interfaces - 10/28/2020 3:18 PM EST [...] knee arthroplasty revision with expected postoperative changes. [facility] NUC WBC STUDYon 09-24-2020 IMPRESSION: Hyperemi a to the left knee with no definite evidence for infected prosthesis. [facility] NUCLEAR MEDICINE TOT AL BODY BONE SCAN [...] blood cell uptake in the right knee. [facility] User, Interfaces - 09/24/2020 5:04 PM EST [...] with no definite evidence for infected prosthesis. [facility] NUC 3 PHASE LIMITED BONE SCA Non 09-19-2020 IMPRESSION: Findings concerning for loosening or infection in the medial tibial plateau portion of the left knee prosthesis. No evidence of loosening or infection in the right knee. [facility] NUCLEAR MEDICINE TRIPLE-PHASE BONE SCAN HISTORY: Left [...] or delayed uptake in the right knee. [facility] User, Interfaces - 09/19/2020 2:47 PM EDT [...] loosening or infection in the right knee. [facility] LARGE JOINT/BURSA INJECTION AND/OR ASPIRATION: L [...] complications The patient was prepped with Chloraprep. [facility] CNOVon 02-23-2019 CNOV Office Visit (PULMMN ) LÓPEZ CORTÉS ([id number]) 1950 M Date Time Provider Department 02/23/19 [...] local physician and understands to return to [facility] if there is evidence of functional [...] today's CT scan. Referring Provider: GADIEL RHODES [[id number]] Allergies As of Date: 02/23/2019 Noted Allergy Reaction SULFA (SULFONAMIDE ANTIBIOTICS) 03/20/2018 17 - Unknown Comments: Reaction as a kid - unsure Date Reviewed: 02/23/2019 Reviewed by: Gabriela Mclean Ma - Fully Assessed Reason for Visit: Recheck [92] Primary Visit Diagnosis:ILD (interstitial lung disease) ([facility]) [J84.9] Other Visit Diagnosis:Multiple lung nodules [R91.8] [...] by GADIEL RHODES MD on 02/24/[address] [facility] [address] CHEST WO IVCONon 02-24-[address] CHEST WO IVCON * * *Final Report* * * DATE OF EXAM: Feb 23 2019 12:40PM [facility] - CT CHEST WO IVCON / [...] lesion. Upper abdomen: Unchanged. IMPRESSION: STABLE CT. Line Driver: PSCB Transcribe Date/Time: Feb 23 2019 4:08P Dictated by : LAURA DAVIDSON MD This examination was interpreted and the report reviewed and electronically signed by: LAURA DAVIDSON MD on Feb 23 2019 4:30PM EST [id number] Normal [facility] PROGRESSon 02-23-2019 Protein mass conc HNO ID: [id number] Author: Gadiel Rhodes Service: ? Author Type: [...] local physician and understands to return to [facility] if there is evidence of functional decline. No need for additional CT imaging at this time. 2. Lung nodules. 10 mm subpleural nodule incidentally noted on prior chest CT. Has smoking history but discontinued 35 years ago. Nodule now docimented to be stable since 10/2017. No need for additional surveillance. I will see Mr. Cortés back in 6 months. Normal [facility] Protein mass conc HNO ID: [id number] Author: ALEX Kat (Ct) Service: Radiology Author Type: Clinical Quality Control Microbiologist Type: Progress Notes Filed: 02/23/2019 12:42 PM [...] February 23, 2019 12:42 PM Normal [facility] CNOVon 10-16-2018 CNOV Office Visit (FARSHAD ) LÓPEZ CORTÉS ([id number]) 1950 M Date Time Provider Department 10/16/18 [...] Diagnosis:Lung nodules [R91.8] Order(s):CT CHEST WO IVCON [[id number]] Order #: [id number] FUTURE Prescriptions as of 10/16/2018 Sig: PANTOPRAZOLE [...] Status:Closed by GADIEL RHODES MD on 10/22/18 [facility] PROGRESSon 10-16-2018 Protein mass conc HNO ID: [id number] Author: Gadiel Rhodes Service: (none) Author Type: [...] Cortés back in 6 months. 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 There are no occupational exposures. There [...] No history of dysuria, frequency or incontinence. LPN CARE MANAGER: NA MUSCULOSKELETAL: Negative for joint pain [...] MD 04/16/2018 10:48 PM Signed . [facility] [place] Note Mr. 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 Mold: No significant exposure. [...] personally reviewed by me Data Reviewed from [facility] (in addition to that noted in [...] Pre ? ? % ? Date ? 976176 ? Time ?02:22PM ? Height ?169.1 ? [...] management of GERD/heartburn ? Will be seeing glass washer and carrier (consider nasal probe study/pH study ? Recommend [...] Lisa Hazel MD Internal Medicine PGY-III Pager [phone] Attending Addendum: I have personally interviewed and [...] Rhodes M.D. Chair, Department of Pulmonary Medicine [facility] Referring Provider: SCOTT PEREZ [[id number]] Allergies As of Date: 03/20/2018 Noted Allergy Reaction SULFA (SULFONAMIDE ANTIBIOTICS) 03/20/2018 17 - Unknown Comments: Reaction as a kid - unsure Date Reviewed: 03/20/2018 Reviewed by: Jemal (Rn) ANOOP Wilks - Fully Assessed Reason for Visit: Consult [502] Primary Visit Diagnosis:ILD (interstitial lung disease) ([facility]) [J84.9] Other Visit Diagnosis:Multiple lung nodules [R91.8] Order(s):SPIROMETRY BASELINE ONLY [[id number]] Order #: [id number] FUTURE LUNG DIFFUSION CAPACITY (DLCO) [[id number]] Order #: [id number] FUTURE Prescriptions as of 03/20/2018 Sig: PANTOPRAZOLE [...] March 20, 2018 Scott Perez MD (via [employer]) Re: López Cortés ( 1950) Dear Dr. 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 There are no occupational exposures. There [...] No history of dysuria, frequency or incontinence. LPN CARE MANAGER: NA MUSCULOSKELETAL: Negative for joint pain [...] M.D. Chair, Department of Pulmonary Medicine [facility] [place] [facility] Cc: Dr. Tess Fuentes [address] [place] [address] Dr. Francis Giron [address] [facility] [place] [address] Mr. López Cortés [address] [place] [address] Encounter Status:Closed by GADIEL RHODES MD on 04/16/18 Normal [facility] PROGRESSon 03-20-2018 Protein mass conc HNO ID: [id number] Author: Gadiel Rhodes Service: (none) Author Type: Physician Type: Progress Notes Filed: 04/16/2018 10:48 PM Note Text: . [facility] [place] Note Mr. 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 Mold: No significant exposure. [...] personally reviewed by me Data Reviewed from [facility] (in addition to that noted in [...] Pre ? ? % ? Date ? 230814 ? Time ?02:22PM ? Height ?169.1 ? [...] management of GERD/heartburn ? Will be seeing glass washer and carrier (consider nasal probe study/pH study ? Recommend [...] Lisa Hazel MD Internal Medicine PGY-III Pager [phone] Attending Addendum: I have personally interviewed and [...] Rhodes M.D. 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 There are no occupational exposures. There [...] No history of dysuria, frequency or incontinence. LPN CARE MANAGER: NA MUSCULOSKELETAL: Negative for joint pain [...] Cortés back in 6 months. Normal [facility] CT ABDOMEN PELVIS W IV CONTR Michele [...] by:KENDELL Murrelligned by:Christiano Hansen MD10/25/17Final result Normal [facility] CT CHEST W CONTRASTon 2016 CT [...] by:KENDELL Murrelligned by:Christiano Hansen MD10/25/17Final result Normal [facility] CBC with Diffon 10-25-2017 Abs. Basophil 0.00 k/uL Normal 0.0-0.2 [facility] Comment on above: Performed By: #### C DP, CP ####[facility] [facility] [place] [address] Abs.Neutrophil (Seg) 16.04 k/uL High 1.3-9.1 [facility] Comment on above: Performed By: #### C DP, CP ####[facility] [place], [place] [address] [place] [address] Basophils/100 WBC Auto (Bld) 0 % Normal 0-2 [facility] Comment on above: Performed By: #### C DP, CP ####[facility] [place] [id number] Blood morphology Normal Normal [facility] Comment on above: Result Comment: Perf ormed at [facility] [place] [address] [place] [address] Performed By: #### C DP, CP ####[facility] [place] [address] Eosinophils 0.00 10*3/uL Normal 0.0-0.4 [facility] Comment on above: Performed By: #### C DP, CP ####[facility] [place], [place] [address] [place] [address] Eosinophils/100 leukocytes 0 % Normal 0-4 [facility] Comment on above: Performed By: #### C DP, CP ####[facility] [place] [address] Lymphocytes 0.96 10*3/uL Low 1.0-4.8 [facility] Comment on above: Performed By: #### C DP, CP ####[facility] [place] [address] Lymphocytes/100 leukocytes 5 % Low 24-44 [facility] Comment on above: Performed By: #### C DP, CP ####[facility] [place] [address] Monocytes 2.10 10*3/uL High 0.1-1.3 [facility] Comment on above: Performed By: #### C DP, CP ####[facility] [place] [address] Monocytes/100 leukocytes 11 % High 1-7 [facility] Comment on above: Performed By: #### C DP, CP ####[facility] [facility] [place] [address] Neutrophil (Seg) 84 % High 36-66 [facility] Comment on above: Performed By: #### C DP, CP ####[facility] [place] [address].[place] [address] Erythrocyte distribution width Auto Ratio (RBC) 14.1 % Normal 11.5-14.9 [facility] Comment on above: Performed By: #### C DP, CP ####[facility] [place] [address].[place] [address] Erythrocytes (RBC) 5.37 10*6/uL Normal 4.5-5.9 [facility] Comment on above: Performed By: #### C DP, CP ####[facility] [place], [place] [address]e [facility] [place] [address] Hematocrit (HCT) 50.7 % Normal 41-53 [facility] Comment on above: Performed By: #### C DP, CP ####[facility] [place], [place] [address]e [facility] [place] [address] Hemoglobin mass conc (Bld) 16.8 g/dL Normal 13.5-17.5 [facility] Comment on above: Performed By: #### C DP, CP ####[address] [address] MCH 31.2 pg Normal 26-34 [facility] Comment on above: Performed By: #### C DP, CP ####[address] [address] [facility] mass conc (RBC) 33.1 g/dL Normal 31-37 [facility] Comment on above: Performed By: #### C DP, CP ####[address] [address] MCV 94.4 fL Normal 80-100 [facility] Comment on above: Performed By: #### C DP, CP ####[address] [address] Platelet mean volume (PMV) 9.0 fL Normal 6.0-12.0 [facility] Comment on above: Performed By: #### C DP, CP ####[address] [address] Platelets 227 10*3/uL Normal 150-450 [facility] Comment on above: Performed By: #### C DP, CP ####[address] [address] WBC (Leukocytes) 19.1 10*3/uL High 3.5-11.0 [facility] Comment on above: Performed By: #### C DP, CP ####[address] [address] Auto Diff Performed NOT REPORTED Normal [facility] Comment on above: Performed By: #### C DP, CP ####[facility] [place] [address] Erythrocyte morphology NOT REPORTED Normal [facility] Comment on above: Performed By: #### C DP, CP ####[facility] [place] [address] Granulocytes/100 WBC (Bld) NOT REPORTED Normal 0.00-0.30 [facility] Comment on above: Performed By: #### C DP, CP ####[facility] [place] [address] Immature granulocytes #/vol (Bld) NOT REPORTED Normal 0 [facility] Comment on above: Performed By: #### C DP, CP ####[place] [address] [facility] [place] [address] Platelets NOT REPORTED Normal [facility] Comment on above: Performed By: #### C DP, CP ####[facility] [facility] [address] WBC Morphology NOT REPORTED Normal [facility] Comment on above: Performed By: #### C DP, CP ####[address] [place] [address] Comp Metabolic Profon 2016 (cont.) Normal [facility] Comment on above: Result Comment: Aver age GFR for 60-69 years old: 85 mL/min/1.73sq mChronic Kidney Disease: <60 mL/min/1.73sq mKidney failure: <15 mL/min/1.73sq meGFR calculated using average adult body mass. Additional eGFR calculator available at:http://www.[employer].[place]/multiple_crcl_2012.htmPerformed at [facility] [place] [address] [place] [address] Performed By: #### C DP, CP ####[address] [place] [address] Alanine aminotransferase (ALT) 35 U/L Normal 5-41 [facility] Comment on above: Performed By: #### C DP, CP ####[facility] [place] [address] Albumin 4.4 g/dL Normal 3.5-5.2 [facility] Comment on above: Performed By: #### C DP, CP ####[facility] [place] [address] Alkaline Phos 128 U/L Normal 40-129 [facility] Comment on above: Performed By: #### C DP, CP ####[address] [place] [address] Anion gap 14 mmol/L Normal 9-17 [facility] Comment on above: Performed By: #### C DP, CP ####[facility] [place] [address] [place] [address] Aspartate aminotransferase (AST) 50 U/L High <40 [facility] Comment on above: Performed By: #### C DP, CP ####[facility] [place] [address] Bilirubin Ql (U) 1.12 mg/dL Normal 0.3-1.2 [facility] Comment on above: Performed By: #### C DP, CP ####[facility] [place] [address] [place] [address] Calcium 9.2 mg/dL Normal 8.6-10.4 [facility] Comment on above: Performed By: #### C DP, CP ####[facility] [place] [address] [place] [address] Chloride 107 mmol/L Normal 98-107 [facility] Comment on above: Performed By: #### C DP, CP ####[facility] [facility] [place] [address] CO2 23 mmol/L Normal 20-31 [facility] Comment on above: Performed By: #### C DP, CP ####[facility] [place] [address].[place] [address] Creatinine 1.30 mg/dL High 0.70-1.20 [facility] Comment on above: Performed By: #### C DP, CP ####[facility] [place] [address].[place] [address] eGFR (non-black) 55 mL/min/{1.73_m2} Low >60 [facility] Comment on above: Performed By: #### C DP, CP ####[facility] [place] [address].[place] [address] eGFR (non-black) mL/min/{1.73_m2} Normal >60 [facility] Comment on above: Performed By: #### C DP, CP ####[facility] [place] [address] Glucose mass conc 111 mg/dL High 70-99 [facility] Comment on above: Performed By: #### C DP, CP ####[facility] [place] [address].[place] [address] Potassium molar conc 4.3 mmol/L Normal 3.7-5.3 [facility] Comment on above: Performed By: #### C DP, CP ####[address] [place] [address] Protein 7.3 g/dL Normal 6.4-8.3 [facility] Comment on above: Performed By: #### C DP, CP ####[facility] [place] [address].[place] [address] Sodium 144 mmol/L Normal 135-144 [facility] Comment on above: Performed By: #### C DP, CP ####[facility] [place] [address] Urea nitrogen 24 mg/dL High 8-23 [facility] Comment on above: Performed By: #### C DP, CP ####[facility] [place] [address] Albumin/Globulin Ratio NOT REPORTED Normal 1.0-2.5 [facility] Comment on above: Performed By: #### C DP, CP ####[facility] [place] [address] BUN/CRE Ratio NOT REPORTED Normal 9-20 [facility] Comment on above: Performed By: #### C DP, CP ####[facility] [place] [address] Staging: NOT REPORTED Normal [facility] Comment on above: Performed By: #### C DP, CP ####[facility] [place] [address] Vital Signs Date Time Vital Sign Value Performing Clinician Facility 05-09-2025 09:59-0400 Body height 172.7 cm [facility] 05-09-2025 09:59-0400 Body mass index (BMI) [Ratio] 33.75 kg/m2 [facility] 05-09-2025 09:59-0400 Body weight 100.7 kg [facility] 05-09-2025 09:59-0400 Diastolic blood pressure 82 mm[Hg] [facility] 05-09-2025 09:59-0400 Heart rate 57 /min [facility] 05-09-2025 09:59-0400 Systolic blood pressure 124 mm[Hg] Sunita Ecg/[facility] 05-02-2025 10:55-0400 Body height 172.7 cm Fidelina Jones MD Work Phone: [facility] 05-02-2025 10:55-0400 Body mass index (BMI) [Ratio] 34.21 kg/m2 Fidelina Jones MD Work Phone: [facility] 05-02-2025 10:55-0400 Body weight 102.06 kg Fidelina Jones MD Work Phone: [facility] 05-02-2025 10:55-0400 Diastolic blood pressure 68 mm[Hg] Fidelina Jones MD Work Phone: [facility] 05-02-2025 10:55-0400 Heart rate 72 /min Fidelina Jones MD Work Phone: [facility] 05-02-2025 10:55-0400 Systolic blood pressure 104 mm[Hg] Fidelina Jones MD Work Phone: [facility] 04-18-2025 09:09-0400 Diastolic blood pressure 82 mm[Hg] Tess Fuentes MD Work Phone: [facility] 04-18-2025 09:09-0400 Heart rate 60 /min Tess Fuentes MD Work Phone: [facility] 04-18-2025 09:09-0400 Systolic blood pressure 132 mm[Hg] Tess Fuentes MD Work Phone: [facility] 03-18-2025 09:28-0400 Body height 172.7 cm Adrien Foley PRODUCT SUPPORT MANAGER-SUPERVISOR [employer] Work Phone: [facility] 03-18-2025 09:28-0400 Body mass index (BMI) [Ratio] 35.79 kg/m2 Adrien Foley PRODUCT SUPPORT MANAGER-SUPERVISOR [employer] Work Phone: [facility] 03-18-2025 09:28-0400 Body weight 106.78 kg Adrien Foley PRODUCT SUPPORT MANAGER-SUPERVISOR [employer] Work Phone: [facility] 03-18-2025 09:28-0400 Diastolic blood pressure 78 mm[Hg] Adrien Foley PRODUCT SUPPORT MANAGER-SUPERVISOR [employer] Work Phone: [facility] 03-18-2025 09:28-0400 Heart rate 70 /min Adrien Foley PRODUCT SUPPORT MANAGER-SUPERVISOR [employer] Work Phone: [facility] 03-18-2025 09:28-0400 Systolic blood pressure 120 mm[Hg] Adrien Foley PRODUCT SUPPORT MANAGER-SUPERVISOR [employer]ING Work Phone: [facility] 08-14-2024 14:41-0400 Diastolic blood pressure 80 mm[Hg] Hugh NILL [facility] 08-14-2024 14:41-0400 Heart rate 68 /min Hugh NILL [facility] 08-14-2024 14:41-0400 Respiratory rate 16 /min Hugh NILL [facility] 08-14-2024 14:41-0400 Systolic blood pressure 118 mm[Hg] Hugh NILL [facility] 01-31-2024 08:42-0400 Blood Pressure Location Hugh NILL [facility] [place] 01-31-2024 08:42-0400 Diastolic blood pressure 82 mm[Hg] Hugh NILL [facility] [place] 01-31-2024 08:42-0400 Heart rate 83 /min Hugh NILL [facility] [place] 01-31-2024 08:42-0400 Respiratory rate 16 /min Hugh NILL [facility] 01-31-2024 08:42-0400 Systolic blood pressure 120 mm[Hg] Hugh NILL [facility] [place] 11-23-2023 08:25-0500 Body height 172.7 cm Bhavana Addison PRODUCT SUPPORT MANAGER-SUPERVISOR [employer] Work Phone: [facility] 11-23-2023 08:25-0500 Body mass index (BMI) [Ratio] 34.21 kg/m2 Bhavana Addison PRODUCT SUPPORT MANAGER-SUPERVISOR [employer] Work Phone: [facility] 11-23-2023 08:25-0500 Body weight 102.06 kg Bhavana Addison PRODUCT SUPPORT MANAGER-SUPERVISOR [employer] Work Phone: [facility] 05-16-2023 09:32-0400 Blood Pressure Location Darwin RICHMOND [facility] 05-16-2023 09:32-0400 Diastolic blood pressure 75 mm[Hg] Darwin RICHMOND [facility] 05-16-2023 09:32-0400 Heart rate 75 /min Darwin RICHMOND [facility] 05-16-2023 09:32-0400 Respiratory rate 16 /min Darwin RICHMOND [facility] 05-16-2023 09:32-0400 Systolic blood pressure 129 mm[Hg] Darwin RICHMOND [facility] 06-16-2022 10:13-0400 Body height 172.7 cm Barak Hebert MD Work Phone: [facility] 06-16-2022 10:13-0400 Body mass index (BMI) [Ratio] 35.28 kg/m2 Barak Hebert MD Work Phone: [facility] 06-16-2022 10:13-0400 Body weight 105.23 kg Barak Hebert MD Work Phone: [facility] 05-26-2022 07:57-0400 Body height 172.7 cm Gadiel Floyd MD Work Phone: [facility] 05-26-2022 07:57-0400 Body mass index (BMI) [Ratio] 35.28 kg/m2 Gadiel Floyd MD Work Phone: [facility] 05-26-2022 07:57-0400 Body temperature 97.7 [degF] Gadiel Floyd MD Work Phone: [facility] 05-26-2022 07:57-0400 Body weight 105.23 kg Gadiel Floyd MD Work Phone: [facility] 02-17-2022 12:58-0400 Body height 172.7 cm Gadiel Floyd MD Work Phone: [facility] 02-17-2022 12:58-0400 Body mass index (BMI) [Ratio] 36.81 kg/m2 Gadiel Floyd MD Work Phone: [facility] 02-17-2022 12:58-0400 Body temperature 98.2 [degF] Gadiel Floyd MD Work Phone: [facility] 02-17-2022 12:58-0400 Body weight 109.8 kg Gadiel Floyd MD Work Phone: [facility] 10-29-2021 11:09-0500 Body height 172.7 cm Bhavana Addison APRN-SUPERVISOR HAND [employer]ILVER[employer] Work Phone: [facility] 10-29-2021 11:09-0500 Body mass index (BMI) [Ratio] 36.49 kg/m2 Bhavana Addison APRN-SUPERVISOR [employer]ILVERING Work Phone: [facility] 10-29-2021 11:09-0500 Body temperature 97.2 [degF] Bhavana Addison APRN-SUPERVISOR [employer]ILVERING Work Phone: [facility] 10-29-2021 11:09-0500 Body weight 108.86 kg Bhavana Addison APRN-SUPERVISOR [employer]IL[employer]ING Work Phone: [facility] 11-19-2020 11:08-0500 BMI (Body Mass Index) 34.21 kg/m2 [facility] 11-19-2020 11:08-0500 Body Temperature 97.59 [degF] [facility] 11-19-2020 11:08-0500 Body weight 102.06 kg [facility] 11-19-2020 11:08-0500 Height 172.7 cm [facility] 10-29-2020 15:11-0500 BP Diastolic 72 mm[Hg] [facility] 10-29-2020 15:11-0500 BP Systolic 148 mm[Hg] [facility] 10-29-2020 15:11-0500 Pulse (Heart Rate) 74 /min [facility] 10-29-2020 15:11-0500 Pulse Oximetry 100 % [facility] 10-29-2020 15:11-0500 Respiratory Rate 16 /min [facility] 10-29-2020 08:00-0500 Body Temperature 97.39 [degF] [facility] 10-28-2020 15:15-0500 BMI (Body Mass Index) 32.23 kg/m2 [facility] 10-28-2020 15:15-0500 Body weight 96.16 kg [facility] 10-28-2020 15:15-0500 Height 172.7 cm [facility] 09-11-2020 13:55-0400 BMI (Body Mass Index) 31.96 kg/m2 [facility] 09-11-2020 13:55-0400 Body Temperature 97.11 [degF] [facility] 09-11-2020 13:55-0400 Body weight 95.35 kg [facility] 09-11-2020 13:55-0400 Height 172.7 cm [facility] Encounters Encounter Date Encounter Type Care Provider Facility Start: 06-26-2025 End: 06-26-2025 ambulatory Hugh ALAS Facility:[facility] [place] Start: 06-26-2025 End: 06-26-2025 Patient encounter procedure Hugh ALAS [facility] [place] Start: 06-18-2025 End: 06-18-2025 ambulatory Hugh ALAS Facility[facility] Start: 06-18-2025 End: 06-18-2025 ambulatory Hugh ALAS Facility:[facility] Start: 06-18-2025 End: 06-18-2025 [facility] Start: 06-05-2025 End: 06-05-2025 ambulatory Hugh ALAS Facility:[facility] Start: 06-05-2025 End: 06-05-2025 Patient encounter procedure Hugh ALAS [facility] Start: 05-22-2025 End: 05-22-2025 ambulatory Tess Fuentes MD Work Phone: [facility] Work Phone: Start: 05-22-2025 End: 05-22-2025 Departed Referred Hugh Alas MD [facility] -[facility] [place] [facility] Start: 05-22-2025 End: 05-22-2025 ambulatory Hugh ALAS Facility:CD:[id number] Start: 05-09-2025 End: 05-09-2025 Professional / ancillary services management [facility] Comment on above: Paroxysmal atrial fi brillation (Multi) Start: 05-09-2025 End: 05-09-2025 ambulatory [facility] Ambulatory Start: 05-07-2025 End: 05-07-2025 ambulatory Hugh ALAS Facility:[facility] Start: 05-07-2025 End: 05-07-2025 Patient encounter procedure Hugh ALAS [facility] [place] Start: 05-02-2025 End: 05-02-2025 Office outpatient visit 25 minutes Fidelina Jones MD Work Phone: [facility] Comment on above: Paroxysmal atrial fi brillation (Multi); High risk medication use; Encounter to discuss test results; Essential hypertension; Mixed hyperlipidemia; BMI 34.0-34.9,adult; Former smoker Start: 05-02-2025 End: 05-02-2025 ambulatory FIDELINA Rosa [facility] Ambulatory Start: 04-18-2025 Non-patient / Non-visit Bella Fuentes MD Work Phone: [facility] Work Phone: Start: 04-18-2025 End: 04-18-2025 Patient encounter procedure Tess Fuentes MD Work Phone: [facility] Work Phone: Start: 04-18-2025 End: 04-18-2025 ambulatory Tess Fuentes MD Work Phone: [facility] Work Phone: Start: 03-26-2025 End: 03-26-2025 Patient encounter procedure Tess Fuentes MD Work Phone: [facility] [place] Work Phone: Start: 03-26-2025 End: 03-26-2025 ambulatory Tess Fuentes MD Work Phone: [facility] Work Phone: Start: 03-18-2025 End: 03-18-2025 Office consultation new/estab patient 60 min Adrien Ramirez Foley PRODUCT SUPPORT MANAGER-SUPERVISOR [employer]ING Work Phone: [facility] Comment on above: Dyspnea on exertion (Primary Dx); Palpitations; Abnormal EKG; Other fatigue; BMI 35.0-35.9,adult; Mixed hyperlipidemia; Essential hypertension Start: 03-18-2025 End: 03-18-2025 ambulatory ADRIEN Ramirez [facility] Ambulatory Start: 10-23-2024 End: 10-23-2024 ambulatory Hugh R NILL Facility:[facility] Start: 10-23-2024 End: 10-23-2024 Patient encounter procedure Hugh R NILL [facility] Start: 09-18-2024 End: 09-18-2024 ambulatory [facility] Start: 09-18-2024 End: 09-18-2024 Patient encounter procedure Hugh R NILL [facility] [place] Start: 09-14-2024 ambulatory Hugh R NILL Facility : [place] Start: 08-29-2024 End: 08-29-2024 ambulatory Hugh R Nill [facility] Work Phone: Start: 08-29-2024 End: 08-29-2024 Departed Referred MD Hugh Alas Work Phone: [facility] Start: 08-29-2024 End: 08-29-2024 ambulatory Hugh R NILL Facility:CD:[id number] Start: 08-14-2024 End: 08-14-2024 ambulatory Hugh R NILL Facility: [facility] Start: 08-14-2024 End: 08-14-2024 [facility] Start: 06-05-2024 End: 06-05-2024 ambulatory SOLOMON THOMSONALEX Not Available Start: 03-06-2024 End: 03-06-2024 Patient encounter procedure Hugh R NILL [facility] [place] [place] Start: 02-28-2024 End: 02-28-2024 ambulatory MD Hugh Alas Work Phone: [facility] Work Phone: Start: 02-28-2024 End: 02-28-2024 Departed Referred MD Hugh Alas Work Phone: [facility] Start: 02-28-2024 End: 02-28-2024 Patient encounter procedure Hugh ALAS [facility] [place] [place] Start: 01-31-2024 End: 01-31-2024 Patient encounter procedure Hugh ALAS [facility] [place] Start: 11-23-2023 End: 11-23-2023 Office outpatient visit 15 minutes Bhavana Addison APRNOdimaxSUPERVISOR HAND SILVERING Work Phone: [facility] Comment on above: Hx of total knee art hroplasty, left (Primary Dx) Start: 11-23-2023 End: 11-23-2023 Subsequent hospital visit by physician Bhavana Addison APRN-SUPERVISOR [employer]ILVERING Work Phone: [facility] Start: 05-16-2023 End: 05-16-2023 Patient encounter procedure Darwin RICHMOND [facility] Start: 01-27-2023 End: 01-28-[address] TESS FUENTES . Facility: Start: 01-12-2023 End: 01-12-2023 Patient encounter procedure Darwin RICHMOND [facility] Start: 06-16-2022 ambulatory TESS Rosa [facility] Start: 06-16-2022 End: 06-16-2022 Office outpatient visit 15 minutes Barak Hebert MD Work Phone: [facility] Comment on above: History of revision of total replacement of left knee joint (Primary Dx) Start: 05-26-2022 ambulatory TESS FUENTES [facility] Start: 05-26-2022 End: 05-26-2022 Office outpatient visit 10 minutes Gadiel Floyd MD Work Phone: [facility] Comment on above: Bilateral thumb pain (Primary Dx) Start: 04-15-2022 End: 04-16-[address] TESS FUENTES . Facility:[facility] Start: 04-13-2022 End: 04-14-[address] TESS FUENTES . Facility:[facility] Start: 04-10-2022 End: 04-11-[address] TESS FUENTES . Facility:[facility] Start: 04-09-2022 End: 04-10-[address] TESS FUENTES . Facility:[facility] Start: 02-17-2022 ambulatory TESS Shelley [facility] Start: 02-17-2022 End: 02-17-2022 Office outpatient new 30 minutes Gadiel Floyd MD Work Phone: [facility] Comment on above: Bilateral thumb pain (Primary Dx); Primary osteoarthritis of first carpometacarpal joint of left hand Start: 02-17-2022 End: 02-17-2022 Subsequent hospital visit by physician Gadiel Floyd MD Work Phone: [facility] Start: 12-17-2021 ambulatory BARAK HEBERT [facility] Start: 12-17-2021 End: 12-17-2021 Office outpatient visit 15 minutes Barak Hebert MD Work Phone: [facility] Comment on above: Bilateral thumb pain (Primary Dx); Left knee pain, unspecified chronicity Start: 11-27-2021 ambulatory [facility] Start: 10-29-2021 End: 10-29-2021 Postop follow up visit related to original px Barak Hebert MD Work Phone: [facility] Comment on above: Hx of total knee art hroplasty, left (Primary Dx) Start: 10-29-2021 End: 10-29-2021 Subsequent hospital visit by physician Bhavana Addison APRN-CARINE Work Phone: [facility] Start: 02-26-2021 End: 02-26-2021 Subsequent hospital visit by physician Barak Hebret Work Phone: [facility] Start: 11-19-2020 End: 11-19-2020 Postop follow up visit related to original px Kaila Richmond Work Phone: [facility] Comment on above: Hx of total knee art hroplasty, left (Primary Dx); Postoperative pain of knee Start: 11-19-2020 End: 11-19-2020 Subsequent hospital visit by physician Kaila Richmond Work Phone: [facility] Start: 10-28-2020 End: 10-29-2020 Evaluation and management of inpatient Barak Merchant View Work Phone: [facility] Comment on above: Mechanical loosening of internal left knee prosthetic joint Start: 09-24-2020 End: 09-24-2020 Subsequent hospital visit by physician Barak Hebert Work Phone: [facility] Comment on above: Arrived Start: 09-23-2020 End: 09-23-2020 Subsequent hospital visit by physician Barak Hebert Work Phone: [facility] Comment on above: Arrived Start: 09-19-2020 End: 09-19-2020 Subsequent hospital visit by physician Barak Hebert Work Phone: [facility] Comment on above: Arrived Start: 09-11-2020 End: 09-11-2020 Subsequent hospital visit by physician Barak Hebert Work Phone: [facility] Start: 09-11-2020 End: 09-11-2020 Office outpatient new 45 minutes Barak Hebert Work Phone: [facility] Comment on above: Left knee pain, unsp ecified chronicity (Primary Dx); Pain in prosthetic joint, initial encounter Start: 02-23-2019 End: 02-26-2019 Patient encounter procedure GADIEL RHODES [facility] Start: 10-16-2018 End: 10-23-2018 Patient encounter procedure GADIEL RHODES [facility] Start: 03-20-2018 End: 04-19-2018 Patient encounter procedure GADIEL RHODES [facility] Start: 11-23-2017 End: 11-24-2017 Ambulatory DEFAULT PHYSICIAN Facility:[facility] Start: 10-25-2017 End: 10-26-2017 Emergency department patient visit ROBERTO GRUBER [facility] Procedures Date Procedure Procedure Detail Performing Clinician Start: 05-22-2025 Colonoscopy Hugh ALAS Start: 05-22-2025 Esophagogastroduodenoscopy Hugh ALAS Start: 05-22-2025 Excision of cyst Hugh VALLESHarris Start: 04-18-2025 Radionuclide myocardial perfusion stress study Tess Fuentes MD Work Phone: Start: 03-18-2025 Ecg routine ecg w/least 12 lds w/i&r Adrien Foley PRODUCT SUPPORT MANAGER-SUPERVISOR [employer] Work Phone: Start: 08-29-2024 Excisional biopsy of basal cell carcinoma Hugh ALAS Start: 02-28-2024 Excision of basal cell carcinoma Hugh ALAS Start: 01-27-[address] TESS FUENTES . Comment on above: Performed By: #### PSASC, VITAD #### [facility] [address] [place] [address] Dr. Braulio Fritz Start: 04-10-[address] TESS FUENTES . Comment on above: Performed By: #### [id number], VITAD, PSASC, IRON #### [facility] [address] [address] [address] Braulio Fritz Start: 02-17-2022 Arthrocentesis aspir&/inj small jt/bursa w/o us Irene Parker Start: 10-29-2020 Complete blood count with white cell differential, automated Bhavana Addison Work Phone: Start: 10-28-2020 X-ray of left knee Bhavana Addison Work Phone: Start: 10-28-2020 End: 10-28-2020 Cul bact roberto aerobic isol xcpt ur blood/stool Barak Hebert Work Phone: Start: 10-28-2020 End: 10-28-2020 Culture bacterial any source anaerobic iso&id Barak Hebert [employer] Phone: Start: 10-28-2020 End: 10-28-2020 Fungus identified in Unspecified specimen by Culture Barak Hebert [employer] Phone: Start: 10-28-2020 End: 10-28-2020 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 specific culture Baark Hebert [employer] Phone: Start: 10-28-2020 Bacteria identified in Body fluid by Culture Barak [employer] Work Phone: Start: 10-28-2020 End: 10-28-2020 Revj tot knee arthrp fem&entire tibial compone Barak Hebert [employer] Phone: Start: 10-28-2020 Blood group typing, RH phenotyping Barak Hebert [employer] Phone: Start: 09-24-2020 Nuclear medicine procedure Barak Hebert [employer] Phone: Start: 09-19-2020 Radioisotope scan of bone Bhavana Nila Work Phone: Start: 09-11-2020 Intra-articular injection Barak Hebert Work Phone: Start: 07-25-2019 Colonoscopy Sunita Ecg/Holter Start: 07-25-2019 Colonoscopy Hugh ALAS Start: 07-25-2019 Esophagogastroduodenoscopy Hugh ALAS Start: 04-26-2019 Arthroscopic knee operation Darwin RICHMOND Start: 10-25-2017 Ct abdomen & pelvis w/contrast material ROBERTO GRUBER Start: 10-25-2017 Ct thorax w/contrast material ROBERTO SHORET [facility] Start: 10-25-2017 CBC WITH AUTO DIFFERENTIAL ROBERTO GRUBER Start: 10-25-2017 COMPREHENSIVE METABOLIC PANEL [facility]ERTO SHORET [facility] Start: 10-25-2017 EKG 12-LEAD ROBERTO GRUBER Start: 11-21-2015 Colonoscopy Hugh REENAHarris Arthroplasty of knee Darwin RICHMOND Arthroplasty of knee Hugh EVETTE Repair of meniscus Hugh WOODS Revision of knee arthroplasty Hugh VALLESL Plan of Treatment Date Care Activity Detail Author Start: 09-23-2034 DTaP/Tdap/Td Vaccines (2 - Td or Tdap) DTaP/Tdap/Td Vaccines (2 - Td or Tdap) [facility] Start: 07-25-2029 Screening for malignant neoplasm of colon [facility] Start: 01-07-2026 End: 01-07-2026 Patient encounter procedure 01/07/2026 8:40 AM EST Office Visit [place] [address] [place] [address] Fidelina Jones MD [address] [facility] [address] [place] [address] [facility] Start: 05-22-2025 [facility] Start: 05-09-2025 End: 05-02-2026 ECG 12 Lead [facility] Service Area Work Phone: Comment on above: Expected: 05/09/2025 (Approximate), Expi res: 05/02/2026 Start: 05-09-2025 End: 05-09-2025 Professional / ancillary services management 05/09/2025 10:00 AM EDT Ancillary Procedure [place] [address] [place] [address] [facility] Start: 05-02-2025 End: 05-02-2025 Patient encounter procedure 05/02/2025 11:30 AM EDT Office Visit [place] [address] [place] [address] Fidelina Jones MD [address] [facility] [address] [place] [address] [facility] Start: 04-18-2025 Radionuclide myocardial perfusion stress study NM katya perf SPECT rest & str [facility] Start: 04-18-2025 SPECT Heart perfusion at rest and W stress and W radionuclide IV [facility] Start: 03-26-2025 End: 03-26-2025 Professional / ancillary services management 03/26/2025 8:00 AM EDT Ancillary Procedure [facility] [address] [facility] [place] [address] [facility] Start: 03-18-2025 End: 03-18-2026 Alanine aminotransferase [Enzymatic activity/volume] in Serum or Plasma by With P-5'-P Alanine Aminotransferase Lab Routine Dyspnea on exertion Other fatigue Expected: 03/18/2025 (Approximate), Expires: 03/18/2026 [facility] Work Phone: Comment on above: Expected: 03/18/2025 (Approximate), Expi res: 03/18/2026 Start: 03-18-2025 End: 03-18-2026 Aspartate aminotransferase [Enzymatic activity/volume] in Serum or Plasma by With P-5'-P Aspartate Aminotransferase Lab Routine Dyspnea on exertion Other fatigue Expected: 03/18/2025 (Approximate), Expires: 03/18/2026 [facility] Work Phone: Comment on above: Expected: 03/18/2025 (Approximate), Expi res: 03/18/2026 Start: 03-18-2025 End: 03-18-2026 Basic metabolic 2000 panel - Serum or Plasma Basic Metabolic Panel Lab Routine Dyspnea on exertion Other fatigue Expected: 03/18/2025 (Approximate), Expires: 03/18/2026 [facility] Work Phone: Comment on above: Expected: 03/18/2025 (Approximate), Expi res: 03/18/2026 Start: 03-18-2025 End: 03-18-2026 CBC panel - Blood by Automated count CBC Lab Routine Dyspnea on exertion Other fatigue Expected: 03/18/2025 (Approximate), Expires: 03/18/2026 [facility] Work Phone: Comment on above: Expected: 03/18/2025 (Approximate), Expi res: 03/18/2026 Start: 03-18-2025 End: 03-18-2026 Holter monitor study Holter Or Event Legal Consultant Cardiac Services Routine Palpitations Expected: 03/18/2025 (Approximate), Expires: 03/18/2026 [facility] Work Phone: Comment on above: Expected: 03/18/2025 (Approximate), Expi res: 03/18/2026 Start: 03-18-2025 End: 03-18-2026 Lipid 1996 panel - Serum or Plasma Lipid Panel Lab Routine Dyspnea on exertion Palpitations Abnormal EKG Other fatigue Mixed hyperlipidemia Expected: 03/18/2025 (Approximate), Expires: 03/18/2026 [facility] Work Phone: Comment on above: Expected: 03/18/2025 (Approximate), Expi res: 03/18/2026 Start: 03-18-2025 End: 03-18-2026 NM Heart Perfusion W stress and W radionuclide IV Nuclear Stress Test Cardiac Nuclear Medicine Routine Dyspnea on exertion Palpitations Abnormal EKG Expected: 03/18/2025 (Approximate), Expires: 03/18/2026 [facility] Work Phone: Comment on above: Expected: 03/18/2025 (Approximate), Expi res: 03/18/2026 Start: 03-18-2025 End: 03-18-2027 US Heart Transthoracic Transthoracic Echo Complete Echocardiography Routine Dyspnea on exertion Palpitations Expected: 03/18/2025 (Approximate), Expires: 03/18/2027 [facility] Service Area Work Phone: Comment on above: Expected: 03/18/2025 (Approximate), Expi res: 03/18/2027 Start: 08-29-2024 [facility] Start: 07-22-2024 COVID-19 Vaccine ( season) COVID-19 Vaccine ( season) [facility] Start: 07-22-2023 Influenza vaccination INFLUENZA VACCINE (#1) [employer] [place] Start: 08-25-2022 End: 08-25-2022 Patient encounter procedure 08/25/2022 Office Visit Orthopaedics Gadiel Floyd MD [address] [place] [address] [facility] Start: 07-22-2022 Influenza vaccination INFLUENZA VACCINE (#1) [facility] Start: 06-16-2022 End: 06-16-2022 Patient encounter procedure 06/16/2022 Office Visit Orthopaedics Barak Hebert MD [address] [place] [address] [facility] Start: 05-26-2022 End: 05-26-2022 Patient encounter procedure 05/26/2022 Office Visit Orthopaedics Gadiel Floyd MD [address] [place] [address] [facility] Start: 04-19-2022 COVID-19 VACCINE (2 - Pfizer series) COVID-19 VACCINE (2 - Pfizer series) [facility] Start: 02-17-2022 End: 02-11-2023 XR Thumb - left Views [facility] Work Phone: Comment on above: 1 Occurrences starting 02/17/2022 until 02/17/2022 Expected: 02/17/2022 , Expires: 02/11/2023 Start: 02-17-2022 End: 02-11-2023 XR Thumb - right Views [facility] Work Phone: Comment on above: 1 Occurrences starting 02/17/2022 until 02/17/2022 Expected: 02/17/2022 , Expires: 02/11/2023 Start: 02-17-2022 End: 02-17-2022 Patient encounter procedure 02/17/2022 Office Visit Orthopaedics Gadiel Floyd MD [address] [place] [address] [facility] Start: 10-29-2021 End: 10-29-2021 Office Visit 10/29/2021 Office Visit Orthopaedics Bhavana Addison, PRODUCT SUPPORT MANAGER-SUPERVISOR [employer]ILVERING [address] [place] [address] [phone] [facility] Start: 10-02-2021 Diabetes mellitus screening Diabetes Screening [facility] Start: 07-22-2021 [facility] Start: 02-19-2021 End: 02-19-2021 Office Visit 02/19/2021 Office Visit Orthopaedics Barak Hebert MD [address] [place] [address] [phone] [facility] Start: 11-19-2020 End: 11-19-2020 Office Visit 11/19/2020 Office Visit Orthopaedics Kaila Richmond, LEILA [address] [place] [address] [phone] [facility] Start: 10-28-2020 End: 10-28-2020 Hospital Encounter [facility] Comment on above: 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, initial encounter REVISION ARTHROPLAST Y KNEE left Start: 10-02-2020 End: 10-02-2020 Pre-Operative Nurse Assessment 10/02/2020 Pre-Operative Nurse Assessment Internal Medicine [facility] Pre Admission Start: 09-24-2020 Hospital Encounter 09/24/2020 Hospital Encounter Nuclear Medicine Barak Hebert MD [address] [place] [address] [phone] [facility] Start: 09-23-2020 End: 09-23-2020 Appointment 09/23/2020 Appointment Nuclear Medicine Barak Hebert MD [address] [place] [address] [phone] [facility] Start: 09-19-2020 End: 09-19-2020 Hospital Encounter [facility] Start: 09-11-2020 End: 09-11-2021 Nuclear medicine imaging procedure NUC BONE MARROW LIMITED AREA Imaging Routine Pain in prosthetic joint, initial encounter Expected: 09/11/2020, Expires: 09/11/2021 [facility] Comment on above: Expected: 09/11/2020, Expires: Start: 09-11-2020 End: 09-11-2021 Nuclear medicine procedure NUC WBC STUDY Imaging Routine Pain in prosthetic joint, initial encounter Expected: 09/11/2020, Expires: 09/11/2021 [facility]: Expected: 09/11/2020, Expires: 1 Start: 09-11-2020 End: 09-11-2021 Radioisotope scan of bone NUC BONE SCAN WHOLE BODY Imaging Routine Pain in prosthetic joint, initial encounter Expected: 09/11/2020, Expires: 09/11/2021 [facility] Comment on above: Expected: 09/11/2020, Expires: 1 Start: 08-21-2018 Pneumococcal vaccination [employer] stem Start: 01-25-2016 Abdominal aortic aneurysm screening [facility] Start: 01-25-2016 Pneumococcal vaccination [employer] [facility] Start: 2011 RSV High Risk: (Elderly (60+) or Population) (1 - Risk 60-74 years 1-dose series) RSV High Risk: (Elderly (60+) or Population) (1 - Risk 60-74 years 1-dose series) [facility] Start: 2001 Colonoscopy COLORECTAL CANCER SCREENING DISCUSSION [facility] Start: 2001 Prostate specific antigen measurement PROSTATE CANCER SCREENING DISCUSSION [facility] Start: 2001 Zoster vaccine hzv live for subcutaneous use ZOSTER (SHINGLES) VACCINE (1 of 2) [facility] Start: 2001 Zoster Vaccines (1 of 2) Zoster Vaccines (1 of 2) [facility] Start: 01-25-1996 Colonoscopy COLORECTAL CANCER SCREENING DISCUSSION [facility] Start: 01-25-1996 Screening for malignant neoplasm of colon COLORECTAL CANCER SCREENING DISCUSSION [facility] Start: 1991 Fasting lipid profile LIPID SCREENING [facility] Start: 1991 Lipid panel LIPID SCREENING [facility] Start: 1970 Pneumococcal vaccination Pneumococcal Vaccine (1 of 2 - PCV) [facility] Start: 1970 Third diphtheria, tetanus and acellular pertussis (DTaP) vaccination TDAP (ADULT) [facility] Start: 1969 Hepatitis C screening Hepatitis C Screening [facility] Start: 1969 Tetanus vaccination TETANUS [facility] Start: 1967 COVID-19 VACCINE (1) COVID-19 VACCINE (1) [facility] Start: 1963 COVID-19 VACCINE (1) COVID-19 [facility]ACCINE (1) [facility] Start: 01-25-1956 COVID-19 VACCINE (1) COVID-19 VACCINE (1) [facility] Start: 1951 Hepatitis C antibody, confirmatory test HEPATITIS C VIRUS SCREENING [facility] Start: 1951 Hepatitis C screening HEPATITIS C VIRUS SCREENING [facility] Start: 1951 Lipid panel Lipid Panel [facility] Start: 1951 Medicare Annual Wellness Visit Medicare Annual Wellness Visit (AWV) [facility] Start: 1951 Screening for malignant neoplasm of colon [facility] Start: 1951 Tetanus vaccination TETANUS [facility] ANAEROBE CULTURE [facility] [place] [place] [facility] Comment on above: Release Upon Ordering for 1 Occurrences starting 10/28/2020 Bacteria identified Cx Nom (Body fld) BODY FLUID CULTURE AND DIRECT SMEAR Microbiology Routine 10/28/2020 12:35 PM EST [facility] Bacteria identified Cx Nom (Unsp spec) BACTERIAL CULTURE AND DIRECT SMEAR, LESION, TISSUE, DEVICE Microbiology Routine Mechanical loosening of internal left knee prosthetic joint, initial encounter Release Upon Ordering for 1 Occurrences starting 10/28/2020 [facility] Comment on above: Release Upon Ordering for 1 Occurrences starting 10/28/2020 ECG 12 Lead ECG 12 Lead ECG Routine Dyspnea on exertion 03/18/2025 9:30 AM EDT [facility] Work Phone: Fungus identified Cx Nom (Unsp spec) [facility] Comment on above: Release Upon Ordering for 1 Occurrences starting 10/28/2020 Mycobacterium sp identified Org specific cx Nom (Tiss) ACID FAST CULTURE, TISSUE Microbiology Routine Mechanical loosening of internal left knee prosthetic joint, initial encounter Release Upon Ordering for 1 Occurrences starting 10/28/2020 [facility] [facility] Comment on above: Release Upon Ordering for 1 Occurrences starting 10/28/2020 Mycobacterium sp identified Org specific cx Nom (Unsp spec) [facility] End: 09-23-2020 Nuclear medicine imaging procedure NUC BONE MARROW LIMITED AREA Imaging Routine Pain in prosthetic joint, initial encounter 1 Occurrences starting 09/23/2020 until 09/23/2020 [facility] Comment on above: 1 Occurrences starting 09/23/2020 until 09/23/2020 Nuclear medicine marycarmen ging procedure NUC BONE MARROW LIMITED AREA Imaging Routine Pain in prosthetic joint, initial encounter 09/23/2020 12:09 PM EST [employer] End: 09-23-2020 Nuclear medicine procedure NUC WBC STUDY Imaging Routine Pain in prosthetic joint, initial encounter 1 Occurrences starting 09/23/2020 until 09/23/2020 [facility] Comment on above: 1 Occurrences starting 09/23/2020 until 09/23/2020 Nuclear medicine procedure NUC WBC STUDY Imaging Routine Pain in prosthetic joint, initial encounter 09/23/2020 6:[address] [facility] Radiography for bone length studies [facility] TISSUE CULTURE [facility] X-ray of left knee [facility] X-ray of left knee XR KNEE LEFT 3 VIEWS Imaging Routine Hx of total knee arthroplasty, left 10/29/2021 10:[address] [facility] XR Knee - left 3 Views XR KNEE L EFT 3 VIEWS Imaging Routine History of revision of total replacement of left knee joint 06/16/2022 9:[address] [facility] XR Knee - left 3 Views XR KNEE L EFT 3 VIEWS Imaging Routine Hx of total knee arthroplasty, left 11/23/2023 8:19 AM [facility] Immunizations Immunization Date Immunization Notes Care Provider [facility] 09-23-2024 tetanus toxoid, redu sahil diphtheria toxoid, and acellular pertussis vaccine, adsorbed Fidelina Jones MD Work Phone: [facility] 09-21-2024 influenza, seasonal, injectable Adrien Foley PRODUCT SUPPORT MANAGER-SUPERVISOR HAND SILVERING Work Phone: [facility] Work Phone: 08-21-2023 influenza virus vacc ine, unspecified formulation Hugh ALAS [facility] [place] 09-24-2022 SARS-CoV-2 (COVID-19 ) [id number] Darwin RICHMOND [facility] 08-31-2022 influenza virus vacc ine, unspecified formulation Darwin RICHMOND [facility] 03-29-2022 SARS-CoV-2 mRNA (ykknxetbmng-jucf-sfkuza e) vaccine Darwin RICHMOND [facility] 09-21-2021 SARS-CoV-2 (COVID-19 ) Ad26 vaccine, recombinant Darwin RICHMOND [facility] 09-13-2021 SARS-CoV-2 (COVID-19 ) mRNA-1273 vaccine Darwin RICHMOND [facility] 02-19-2021 SARS-CoV-2 (COVID-19 ) Ad26 vaccine, recombinant Darwin RICHMOND [facility] 02-04-2021 SARS-CoV-2 (COVID-19 ) mRNA-1273 vaccine Darwin RICHMOND [facility] 01-19-2021 SARS-CoV-2 (COVID-19 ) Ad26 vaccine, recombinant Darwin RICHMOND [facility] 01-07-2021 SARS-CoV-2 (COVID-19 ) mRNA-1273 vaccine Darwin RICHMOND [facility] 09-03-2020 influenza virus vacc ine, unspecified formulation Bhavana Addison APRN-SUPERVISOR HAND SILVERING Work Phone: [facility] 09-04-2019 influenza virus vacc ine, unspecified formulation Darwin RICHMOND [facility] 08-22-2018 influenza virus vacc ine, unspecified formulation Darwin RICHMOND [facility] 08-24-2017 influenza virus vacc ine, unspecified formulation Darwin RICHMOND [facility] 08-21-2017 pneumococcal polysaccharide vaccine, 23 valent Darwin RICHMOND [facility] 08-01-2017 pneumococcal polysaccharide vaccine, 23 valent Darwin RICHMOND [facility] 06-27-2017 pneumococcal polysaccharide vaccine, 23 valent Darwin RICHMOND [facility] 09-09-2016 influenza virus vacc ine, unspecified formulation Darwin RICHMOND [facility] Payers Date Payer Category Payer Private Health Insurance [id number] 2024 Self-pay 2023 Unknown [id number] 2022 Medicare supplementa l policy (as second payer) [employer] [id number] 2020 Unknown 2020 Unknown [id number] [id number] .[id number] 2017 Unknown [id number] 2016 Medicare [id number] .[id number] 2016 Medicare [id number] [id number] .[id number] 1959 Medicare [id number] 1959 Private Health Insurance [facility] [id number] 1959 Unknown [id number] 1951 Unknown [id number] 2.16.840.1.289650.3.579.2 .983 1951 Unknown [id number] 2.16.840.1.450189.3.579.2 .983 1951 Unknown [id number] 2.16.840.1.881705.3.579.2 .983 1951 Unknown [id number] 2.16.840.1.180180.3.579.2 .983 1951 Unknown [id number] 2.16.840.1.911486.3.579.2 .983 1951 Unknown [id number] 2.16.840.1.841213.3.579.2 .983 1951 Unknown [id number] 2.16.840.1.465032.3.579.2 .983 1951 Unknown [id number] 2.16.840.1.484552.3.579.2 .983 1951 Unknown [id number] 2.16.840.1.543827.3.579.2 .593 1951 Unknown [id number] 2.16.840.1.872735.3.579.2 .593 1951 Unknown [id number] 2.16.840.1.947046.3.579.2 .593 1951 Unknown [id number] 2.16.840.1.019455.3.579.2 .593 1951 Unknown [id number] 2.16.840.1.125158.3.579.2 .593 1951 Unknown [id number] 2.16.840.1.950622.3.579.2 .1259 1951 Unknown [id number] 2.16.840.1.789978.3.579.2 .1244 1951 Unknown [id number] 2.16.840.1.954390.3.579.2 .1244 1951 Unknown [id number] 2.16.840.1.032159.3.579.2 .1244 1951 Unknown [id number] 2.16.840.1.340989.3.579.2 .1244 1951 Unknown [id number] 2.16.840.1.137066.3.579.2 .72 1951 Unknown [id number] 2.16.840.1.947718.3.579.2 .727 1951 Unknown [id number] 2.16.840.1.174509.3.579.2 .72 1951 Unknown [id number] 2.16.840.1.546715.3.579.2 .727 1951 Unknown [id number] 2.16.840.1.694598.3.579.2 .727 1951 Unknown [id number] 2.16.840.1.051794.3.579.2 .727 1951 Unknown [id number] 2.16.840.1.821087.3.579.2 .727 1951 Unknown [id number] 2.16.840.1.411291.3.579.2 .727 1951 Unknown [id number] 2.16.840.1.257826.3.579.2 .727 1951 Unknown [id number] 2.16.840.1.018467.3.579.2 .727 1951 Unknown [id number] 2.16.840.1.425831.3.579.2 .727 1951 Unknown [id number] 2.16.840.1.307821.3.579.2 .727 Unknown [id number] 2.16.840.1.960392.3.579.2 .531 Unknown [id number] 2.16.840.1.016309.3.579.2 .531 Unknown [id number] 2.16.840.1.431844.3.579.2 .531 Social History Date Type Detail Facility Start: 09-11-2020 End: 06-26-2025 Tobacco smoking status NHIS Former smoker [facility] History of tobacco use Cigarette Smoker A [facility] Start: 09-11-2020 End: 03-18-2025 Tobacco use and exposure Never used [facility] Start: 09-11-2020 End: 11-23-2023 Alcohol intake Ex-drinker (finding) [facility] Start: 1950 Sex Assigned At Not on file A [facility] Start: 10-02-2020 End: 11-23-2023 Tobacco Comment quit 40 yrs ago [facility] Start: 03-08-2025 End: 05-02-2025 Exposure to SARS-CoV-2 (event) Not sure [facility] Start: 10-01-2020 Tobacco smoking status Never s moked tobacco (finding) [facility] Start: 11-23-2023 End: 05-02-2025 Sex Assigned At Male [facility] History of tobacco use Current smoker [facility] Start: 11-23-2023 End: 05-02-2025 History of Social function [facility] Tobacco smoking status Never [facility] [place] Start: 1950 Sex Assigned At Male [facility] Start: 03-18-2025 End: 05-02-2025 Alcoholic beverage intake Current drinker of alcohol (finding) [facility] Work Phone: Start: 03-18-2025 Alcohol Comment occ [facility] Work Phone: Tobacco smoking stat [facility] Unknown if ever smoked [facility] Work Phone: Start: 04-22-2016 End: 03-27-2025 Sex Male (finding) [facility] Start: 05-02-2025 Alcohol Comment once in [facility] Work Phone: Sexual Orientation [facility] [place] Medical Equipment Procedure Code Equipment Code Equipment [...] Assessment Result Facility 10-23-2024 Functional Status N/A [facility] [place] 09-18-2024 Functional Status N/A [facility] [place] 08-14-2024 Functional Status N/A [facility] [place] 01-31-2024 Functional Status N/A [facility] [place] 05-16-2023 Functional Status N/A [facility] Clinical Notes 10-29-2021 to 05-09-2025 Rafaela Tabares LPN - 05/09/2025 10:00 AM EDTHmarino Jones MD - 05/02/2025 11:30 AM EDTPatient InstructionsAssessment & Plan Note - Adrienambreen Foley APRN-SUPERVISOR HAND SILVERING - 03/19/2025 10:22 AM EDT Note Date [...] (5' 8 ) documented in this encounter [facility] Work Phone: 05-07-2025 Note General Surgery [...] abd operations significant for cholecystectomy; last colonoscopy 2019 with removal of hyperplastic polyps; last EGD [...] carcinoma), hand Hist (more content not included)... [facility] Comment on above: Result Comment: Elec tronically Signed By: EVETTE RILEY, Hugh Varela\Date and Time Signed: 05/07/25 14:23 EDT 05-02-2025 History of Present illness Narrative HPI 75-year-old patient who I am seeing for the first time. He was seen in consultation by our nurse practitioner back in February 2025 for symptoms of dyspnea on exertion and fatigue. He had an echocardiogram which I reviewed the report from [facility] which was normal. He had also a nuclear stress test done at [facility] which I reviewed also and reports [...] discussion and plan. documented in this encounter [facility] Work Phone: 05-02-2025 Instructions Kathia Cates [...] instructions on exercise. documented in this encounter [facility] Work Phone: 04-18-2025 Nuclear medicine Diagnostic study note [place] [address] Nuclear Medicine Report Signed Patient: López Cortés MR#: [id number] : 1950 Acct:[id number] Age/Sex: 75 / M ADM Date: 5 Loc: Room: Type: [facility] Attending Dr: Adrien Foley APRN Copies to: GLORIA Domínguez MD~ Ordering Provider: Adrien Foley APRN Date of Service: 04/18/25 NM/NM katya perf SPECT rest & str: SOB NUCLEAR MYOCARDIAL PERFUSION DATE OF PROCEDURE: 04/09/2025 ATTENDING GENERAL LABORER: Dr. Epi Paredes REQUESTING PHYSICIAN: Steffanie Foley [...] Paredes M.D. 04/19/2025 1:23 PM Dictation Location: [place] [address] Transcribed By: TANO 04/19/25 1323 Dictated By: Epi Paredes MD 04/19/25 1322 Signed By: 04/19/25 1323 [facility] Work Phone: 03-19-2025 Evaluation + Plan note Associated Problem(s): Fatigue Reports change in exercise capacity and functional tolerance over last 3 months. [facility] Work Phone: 03-19-2025 Miscellaneous Notes Associated [...] in office: NSR documented in this encounter [facility] Work Phone: 03-19-2025 Evaluation + Plan note Associated Problem(s): Dyspnea Presents with concerns of progressive dyspnea on exertion 'on & off for years' but recent increase while inadvertently not taking neurontin. [facility] Work Phone: 03-19-2025 Evaluation + Plan note Associated Problem(s): BMI 35.0-35.9,adult Reviewed the merits of healthy lifestyle choices on overall cardiovascular health. [facility] Work Phone: 03-19-2025 Evaluation + Plan note Associated Problem(s): Mixed hyperlipidemia Moderate intensity statin [facility] Work Phone: 03-19-2025 Evaluation + Plan note Associated Problem(s): Essential hypertension Optimally treated on low dose amlodipine & avapro [facility] Work Phone: 03-19-2025 Evaluation + Plan note Associated Problem(s): Abnormal EKG TWI III & AVF PRWP anterior leads [facility] Work Phone: 03-19-2025 Evaluation + Plan note Associated Problem(s): Palpitations Occurs with activity - over weekend had to stop twice while planting roses due to elevated heart rate & palpitations. ECG in office: NSR [facility] Work Phone: 03-18-2025 History of Present illness Narrative Self referral for dyspnea on exertion, palpitations and fatigue. Reports prior evaluation by [facility] Cardiology > 5 years ago; [...] (Norvasc) 2.5 mg tablet 1 tablet, Daily (30) gabapentin (NEURONTIN) 300 mg, Daily irbesartan (AVAPRO) [...] after testing (patient request) Adrien Foley MSN, PRODUCT SUPPORT MANAGER-SUPERVISOR HAND SILVERING, PMHNP-[facility] [place], [place] Please excuse any errors in grammar or translation related to this dictation. Voice recognition software was utilized to prepare this document. [1] Family History Problem Relation Name Age of Onset Alzheimer's disease Mother Other (heart issues) Mother Alzheimer's disease Father documented in this encounter [facility] Work Phone: 03-18-2025 Instructions MARK Domínguez [...] testing (patient request) documented in this encounter [facility] Work Phone: 09-12-2024 Note Nurse Consultation [...] virus vaccine, inactivated 08/2023 Recorded SARS-CoV-2 (COVID-19) [id number] 09/24/2022 Recorded influenza virus vaccine, inactivated 08/31/2022 Recorded SARSCoV2 mRNA(hzbmgoepq-yweo-dhdzfe) vac 03/29/2022 Recorded SARS-CoV-2 (COVID-19) Ad26 vaccine [...] Recorded influenza virus vaccine, inactivated 09/09/2016 Recorded [facility] 11-23-2023 History of Present illness Narrative Ortho Nurse - Established Patient Intake Room#: 5 Date: 11/23/2023 8:26 AM Patient: López Cortés MR#: [id number] : 1950 Age: 73 y.o. 3yr L [...] [address] peri SAINI, Take 1 tablet by mouth daily., Disp: [...] Rfl: 1 aspirin EC 81 MG Tab , Take 1 table twice a day for [...] antibiotics. López is an established patient of [facility]. He is here today for followup. He [...] his exercise program will resolve his symptoms. (DOC:[id number]) I have reviewed the findings of the clinical supportability engineer and agree with their assessment. Bhavana Addison APRN-CARINE Ortho Nurse - Established Patient Intake Room#: 5 Date: 11/23/2023 8:26 AM Patient: López Cortés MR#: [id number] : 1950 Age: 73 y.o. 3yr L [...] and sulfa antibiotics. documented in this encounter [facility] 05-16-2023 Hospital Discharge instructions Patient Education [...] Follow these instructions at home: Medicines Take nqri-ero-eiphbvm and prescription medicines only as told by [...] provider. Document Revised: 02/03/2022 Document Reviewed: 02/03/2022 [employer] Patient Education 2022 [employer]. Follow Up Care 01/26/2022 15:47:19 With:ISABEL RILEY, Darwin Moreno, URL Address: [address] [place] [address] [place], [place] [id number]- When: Unknown Comments:PRN [facility] 06-16-2022 History of Present illness Narrative Ortho Nurse - Established Patient Intake Room#: 1 Left Knee Revision checkup, doing great , some pain of 2 when doing steps, Clindamycin was ordered today for dental prophylaxis Date: 06/16/2022 10:17 AM Patient: López Cortés MR#: [id number] : 1950 Age: 72 y.o. Referring Physician: [...] have reviewed the findings of the clinical supportability engineer and agree with their assessment. Ortho Nurse - Established Patient Intake Room#: 1 Left Knee Revision checkup, doing great , some pain of 2 when doing steps, Clindamycin was ordered today for dental prophylaxis Date: 06/16/2022 10:17 AM Patient: López Cortés MR#: [id number] : 1950 Age: 72 y.o. Referring Physician: [...] and sulfa antibiotics. documented in this encounter [facility] 05-26-2022 History of Present illness Narrative [...] at that time. documented in this encounter [facility] 02-17-2022 History of Present illness Narrative [...] shots have helped. documented in this encounter [facility] 12-17-2021 History of Present illness Narrative HPI: López is here today for evaluation of his operative knee. 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 He was last evaluated on 10/29/21 by my SUPERVISOR HAND SILVERING, he was instructed to use Voltaren gel [...] have reviewed the findings of the clinical supportability engineer and agree with their assessment. Ortho Nurse Established Patient Intake Room#: 2---Visit today to follow -up on Left knee pain. He has no pain when resting or sleeping. The pain starts after long walks or using stairs. He had a left TKA on 10-29-20. His pain today is a 3. Date: 12/17/2021 10:55 AM Patient: López Cortés MR#: [id number] : 1950 Age: 71 y.o. Referring Physician: [...] 12/17/2021 10:55 AM Patient: López Cortés MR#: [id number] : 1950 Age: 71 y.o. Referring Physician: [...] and sulfa antibiotics. documented in this encounter [facility] 10-29-2021 History of Present illness Narrative [...] have reviewed the findings of the clinical supportability engineer and agree with their assessment. Ortho Nurse Established Patient Intake Room#: 4 Date: 10/29/2021 11:10 AM Patient: López Cortés MR#: [id number] : 1950 Age: 71 y.o. 1yr F/U [...] Laterality: Left; Surgeon: Barak Hebert MD; Location: [facility]GERY Left 05/07/2020 ---left [...] 10/29/2021 11:10 AM Patient: López Cortés MR#: [id number] : 1950 Age: 71 y.o. 1yr F/U [...] and sulfa antibiotics. documented in this encounter [facility] Evaluation + Plan note Future Appointments Appointment Date:05/16/2023 09:45:00 AM Scheduled Provider:Darwin RICHMOND MD Location[facility] Appointment Type:URO Office Visit [facility] Evaluation + Plan note Future Appointments Appointment Date:02/28/2024 01:40:00 PM Scheduled Provider:Hugh ALAS MD Location:[facility] Appointment Type: Procedure 30 [facility] General Surgery [place] Evaluation + Plan note Future Appointments Appointment Date:03/06/2024 02:40:00 PM Scheduled Provider:Hugh ALAS MD Location:[facility] Appointment Type:[facility] 15 General Surgery [place] Evaluation + Plan note Future Appointments Appointment Date:10/23/2024 08:00:00 AM Scheduled Provider:Hugh ALAS MD Location:[facility] Appointment Type: Established 15 [facility] Evaluation + Plan note Future Appointments Appointment Date:06/18/2025 03:00:00 PM Scheduled Provider:Hugh ALAS MD Location:[facility] Appointment Type: Procedure 30 [facility] General Surgery [place] Evaluation + Plan note Future Appointments Appointment Date:06/26/2025 01:00:00 PM Scheduled Provider:Hugh ALAS MD Location:[facility] Appointment Type: Established 15 [facility] Surgery [place] Evaluation note Diagnosis Hx of total knee arthroplasty, left- Primary [facility] Bilateral thumb pain- Primary Left knee pain, unspecified chronicity [facility] Diagnosis Bilateral thumb pain [facility] Diagnosis Bilateral thumb pain [facility] Diagnosis Bilateral thumb pain- Primary Primary osteoarthritis of first carpometacarpal joint of left hand Primary localized osteoarthrosis, hand [facility] Diagnosis Bilateral thumb pain- Primary [facility] Diagnosis History of revision of total replacement of left knee joint- Primary [facility] Diagnosis Hx of total knee arthroplasty, left- Primary [facility] noteNo assessment information availableSam[facility] Work Phone: Evaluation note* Diagnosis Dyspnea on exertion- Primary Other dyspnea and respiratory abnormality Palpitations Abnormal EKG Nonspecific abnormal electrocardiogram (ECG) (EKG) Other fatigue BMI 35.0-35.9,adult Mixed hyperlipidemia Essential hypertension Unspecified essential hypertension documented in this encounter [facility] Work Phone: Evaluation note* Diagnosis Dyspnea [...] hazards to health documented in this encounter [facility] Work Phone: Evaluation note* Diagnosis Dyspnea on exertion- Primary Other dyspnea and respiratory abnormality Palpitations Abnormal EKG Nonspecific abnormal electrocardiogram (ECG) (EKG) Other fatigue BMI 35.0-35.9,adult Mixed hyperlipidemia Essential hypertension Unspecified essential hypertension Paroxysmal atrial fibrillation (Multi) Atrial fibrillation documented in this encounter [facility] Work Phone: Hospital course Narrative No data available for this section [facility] No data available for this section [facility] No data available for this section [facility] for referral (narrative)No reason for referral information [facility]Ohio [facility] Work Phone: Summary Purpose Family History No Family History [...] FoundDocuments on File Type Date Recorded Patient Non Destructive Evaluation Specialist Expl anation Advance Directives/Living Will 10/28/2020 9:12 AM LIVING WILL, POA Latest Code Status on File Code Status Date Activated Date Inactivated Comments Full Code 10/28/2020 3:43 PM Documents on File Type Date Recorded Patient Non Destructive Evaluation Specialist Expl anation Advance Directives/Living Will 10/28/2020 9:12 AM LIVING WILL, POA Latest Code Status on File Code Status Date Activated Date Inactivated Comments Full Code 10/28/2020 3:43 PM Latest Code Status on File Code Status Date Activated Date Inactivated Comments Full Code 10/28/2020 3:43 PM Advance Directive Response Recorded Date/ Time Advance Directives No March 26, 2025 8:28am Advance Directive Response Recorded Date/ Time Advance Directives No May 22 12:57pm Reason for Referral Status Reason Specialty Diagnoses / Procedures Referred By Contact Referred To Contact Auth Not Needed Nuclear Medicine Diagnoses Pain in prosthetic joint, initial encounter Procedures NUC BONE SCAN WHOLE BODY Barak Hebert MD [address] [place] [id number] [place] [facility] [address] [place] [phone] Status Reason Specialty Diagnoses / Procedures Referred By Contact Referred To Contact Auth Not Needed Nuclear Medicine Diagnoses Pain in prosthetic joint, initial encounter Procedures NUC WBC STUDY IA ABSCESS IMAGING, WHOLE BODY Barak Hebert MD [address] [place], [place] [phone] [facility] Nuclear Medicine [address] [place], [place] [phone] Status Reason Specialty Diagnoses / Procedures Referred By Contact Referred To Contact Auth Not Needed Nuclear Medicine Diagnoses Pain in prosthetic joint, initial encounter Procedures NUC BONE MARROW LIMITED AREA IA BONE MARROW IMAGING, [facility] Barak Hebert MD [address] [place], [place] [phone] [facility] Nuclear Medicine [address] [place], [place] [phone] Status Reason Specialty Diagnoses / Procedures Referred By Contact Referred To Contact Pending Review Diagnoses Left knee pain, unspecified chronicity Procedures XR BONE LENGTH STUDY Barak Hebert MD [address] [place] [address] Status Reason Specialty Diagnoses / Procedures Referred By Contact Referred To Contact Pending Review Diagnoses Left knee pain, unspecified chronicity Procedures XR KNEE LEFT 3 VIEWS Barak Hebert MD [address] [place], [place] [phone] Status Reason Specialty Diagnoses / Procedures Referred By Contact Referred To Contact Closed Nuclear Medicine Diagnoses Pain in prosthetic joint, subsequent encounter Procedures NUC 3 PHASE LIMITED BONE SCAN IA BONE IMAGING, 3 PHASE Bhavana Addison, GLORIA-CARINE [address] [place], [place] [phone] [facility] Nuclear Medicine [address] [place], [place] [phone] Status Reason Specialty Diagnoses / Procedures Referred By Contact Referred To Contact New Request Diagnoses Hx of total knee arthroplasty, left Procedures XR KNEE LEFT 3 VIEWS Kaila Richmond PA-C [address] [place], [place] [phone] Status Reason Specialty Diagnoses / Procedures Referred By Contact Referred To Contact Closed Nuclear Medicine Diagnoses Pain in prosthetic joint, initial encounter Procedures NUC BONE MARROW LIMITED AREA IA BONE MARROW IMAGING, LTD Barak Hebert MD [address] [place] [address] [facility] Nuclear Medicine [address] [place] [phone] Specialty Diagnoses / Procedures Referred By Contac t Referred To Contact Diagnoses Hx of total knee arthroplasty, left Procedures XR KNEE LEFT 3 VIEWS Bhavana Addison, PRODUCT SUPPORT MANAGER-SUPERVISOR HAND SILVERING [address] [place] [phone] Referral ID Status Reason Start Date Expiration Date V isits Requested Visits Authorized [id number] New Request 10/22/2021 11/16/2022 1 1 Specialty Diagnoses / Procedures Referred By Contac t Referred To Contact Physical Therapy Diagnoses Left knee pain, unspecified chronicity Barak Hebert MD [address] [place] [id number] Referral ID Status Reason Start Date Expiration Date V isits Requested Visits Authorized [id number] New Request 12/17/2021 01/11/2023 1 1 Scheduling Instructions . Specialty Diagnoses / Procedures Referred By Contac t Referred To Contact Orthopaedic Surgery Diagnoses Bilateral thumb pain Barak Hebert MD [address] [place] [phone] Gadiel Floyd MD [address] [place] [phone] Referral ID Status Reason Start Date Expiration Date V isits Requested Visits Authorized [id number] New Request 12/17/2021 01/11/2023 1 1 Specialty Diagnoses / Procedures Referred By Contac t Referred To Contact Diagnoses Bilateral thumb pain Procedures XR THUMB LEFT Gadiel Floyd MD [address] [place] [address] Referral ID Status Reason Start Date Expiration Date V isits Requested Visits Authorized [id number] New Request 02/11/2022 03/08/2023 1 1 Specialty Diagnoses / Procedures Referred By Contac t Referred To Contact Diagnoses History of revision of total replacement of left knee joint Procedures XR KNEE LEFT 3 VIEWS Barak Hebert MD [address] [place] [address] Referral ID Status Reason Start Date Expiration Date V isits Requested Visits Authorized [id number] New Request 06/15/2022 07/10/2023 1 1 Referral ID Status Reason Start Date Expiration Date V isits Requested Visits Authorized [id number] New Request 11/22/2023 12/16/2024 1 1 History [...] an appointment for [facility] [place] and the potential surgical date, and reviewing [...] left TKA done on 05/07/[address] Orteag . He then fell on 07/10/2020. Since [...] 09/11/2020 2:10 PM Patient: López Cortés MR#: [id number] : 1950 Age: 70 y.o. Referring Physician: [...] [x]cane, []bracing Are you followed by a creative specialist? [] [x] Name: Are you followed by [...] Transfer Skill: Sit To Stand, Rehab Eval Lewis (Sit-Stand Transfers) other (see comments) (SBA) Physical Assist/Nonphysical Assist: Sit/Stand 1 person assist Weight-Bearing Restrictions: Sit/Stand weight-bearing as tolerated Assistive Device For Transfer: Sit/Stand 2 wheeled walker Gait Skills, PT Eval Level of Lewis: Gait stand-by assist Physical Assist/Nonphysical Assist: Gait 1 person assist Weight-Bearing Restrictions: Gait weight-bearing as tolerated Assistive Device For Transfer: Gait 2 wheeled walker Gait Distance (300ft) Gait Analysis, PT Eval Gait Pattern Used swing-through gait Gait Deviations Identified (Gait) decreased heel strike;other (see comments) (toe out ) Impairments Contributing To Gait Deviations pain;decreased ROM Stair Negotiation Level of Lewis: Stair Negotiation stand-by assist Physical Assist/Nonphysical Assist: [...] Transfer Skill: Sit To Stand, Rehab Eval Lewis (Sit-Stand Transfers) other (see comments) (SBA) Physical Assist/Nonphysical Assist: Sit/Stand 1 person assist Weight-Bearing Restrictions: Sit/Stand weight-bearing as tolerated Assistive Device For Transfer: Sit/Stand 2 wheeled walker Gait Skills, PT Eval Level of Lewis: Gait stand-by assist Physical Assist/Nonphysical Assist: Gait 1 person assist Weight-Bearing Restrictions: Gait weight-bearing as tolerated Assistive Device For Transfer: Gait 2 wheeled walker Gait Distance other (see comments) (125ft) Gait Analysis, PT Eval Gait Pattern Used swing-through gait Gait Deviations Identified (Gait) decreased heel strike;other (see comments) (toe out) Impairments Contributing To Gait Deviations pain;decreased ROM Stair Negotiation Level of Lewis: Stair Negotiation contact guard Physical Assist/Nonphysical Assist: [...] upon exit Therapist Information License # [id number] * Esperanza Avila MD - 10/28/2020 6:47 PM EST INPATIENT REHAB / SWINGBED PROGRESS NOTE Admit Date: 10/28/2020 Date of Evaluation: 10/28/20206:47 PM [facility] Rehab / Skilled bed LOS: 0 days [...] Supine to Sit, Rehab Eval Level of Lewis: Supine/Sit stand-by assist Physical Assist/Nonphysical Assist: Supine/Sit 1 person assist Transfer Skill: Sit to Stand, Rehab Eval Level of Lewis: Sit/Stand contact guard Physical Assist/Nonphysical Assist: Sit/Stand 1 person assist Weight-Bearing Restrictions: Sit/Stand weight-bearing as tolerated Assistive Device for Transfer: Sit/Stand wheeled walker Upper Body Dressing Level of Lewis independent Physical Assist/Nonphysical Assist set-up required Lower Body Dressing Level of Lewis moderate assist (50% patients effort) Physical Assist/Nonphysical Assist 1 person assist (including ZACKARY hose ) Toileting Level of Lewis contact guard Physical Assist/Nonphysical Assist 1 person assist Grooming Lewis Level (Grooming) supervision;wash face, hands General Therapy [...] hygiene training Therapist Information License # [id number] 1. Pt will complete LB dressing MOD [...] Supine to Sit, Rehab Eval Level of Lewis: Supine/Sit stand-by assist Physical Assist/Nonphysical Assist: Supine/Sit 1 person assist Transfer Skill: Sit To Stand, Rehab Eval Lewis (Sit-Stand Transfers) contact guard Physical Assist/Nonphysical Assist: Sit/Stand 1 person assist Weight-Bearing Restrictions: Sit/Stand weight-bearing as tolerated Assistive Device For Transfer: Sit/Stand 2 wheeled walker Gait Skills, PT Eval Level of Lewis: Gait contact guard Physical Assist/Nonphysical Assist: Gait 1 person assist Weight-Bearing Restrictions: Gait weight-bearing as tolerated Assistive Device For Transfer: Gait 2 wheeled walker Gait Distance 75 feet Gait Analysis, PT Eval Gait Pattern Used swing-through gait Gait Deviations Identified (Gait) decreased gait speed;decreased heel strike;decreased step length Impairments Contributing To Gait Deviations decreased ROM;decreased strength Stair Negotiation Level of Lewis: Stair Negotiation (not assessed at this time) Balance Additional Documentation (Seated: Good; Standing: Good) Sensory Examination Sensory Examination [facility] General Interventions Planned Therapy Interventions edema control;gait [...] 11/19/2020 11:07 AM Patient: López Cortés MR#: [id number] : 1950 Age: 70 y.o. Referring Physician: [...] Date: 10/29/2020 Discharge Time: 10/29/2020 Discharge Unit: [facility] Rehab unit Unit Length of Stay: LOS: [...] as: ULTRAM Follow-up: Tess Fuentes MD [address] [facility] [address] In 1 week SANJUANITA louise 1 week Barak Hebert MD [address] [facility] [address] Call in 3 days Upcoming Appointments (up to five)-Some appointments for Medical Center outpatient clinics or diagnostic testing locations are not displayed below Provider Department Dept Phone 11/19/2020 11:00 AM [facility] [phone] Total coordination of discharge care taking greater that 30 minutes documented in this encounter Discharge Instructions * Discharge Instr - Activity* Esperanza Avila MD - 10/29/2020 8:19 AM EST As tolerated * Discharge Instr - Diet* Esperanza Avila MD - 10/29/2020 8:20 AM EST As tolerated * Discharge Instr - Notify* [place] RN - 10/29/2020 10:08 AM EST Contact Office ([phone]) if: > Total Knee ROM < 90 [...] Hour Product Support Hotline at Contact Office ([phone]) if: > Total Knee ROM < 90 [...] Don office is closed, you may call [phone] where you will be connected with an [...] doxycycline (oral/injection) (Trinidadian) documented in this encounter Chief Complaint and [...] section and content) DATE CREATED AUTHOR 05/16/2018 [facility] DATE CREATED AUTHOR AUTHOR'S ORGANIZ ATION 05/16/[address] [facility] DATE CREATED AUTHOR AUTHOR'S ORGANIZ ATION 02/27/2019 [facility] DATE CREATED AUTHOR AUTHOR'S ORGANIZ ATION 10/30/[address] [facility] spital DATE CREATED AUTHOR AUTHOR'S ORGANIZ ATION 02/02/2023 [facility] pital DATE CREATED AUTHOR AUTHOR'S ORGANIZ ATION 06/09/2024 [facility] EPIC DATE CREATED AUTHOR AUTHOR'S ORGANIZ ATION 05/14/2025 [facility] DATE CREATED AUTHOR AUTHOR'S ORGANIZ ATION 06/01/2025 [facility] DATE CREATED AUTHOR AUTHOR'S ORGANIZ ATION [facility]/29/20[facility] DATE CREATED AUTHOR AUTHOR'S ORGANIZ ATION 06/30/[address] [place] [address] Reason for Visit (unrecogniz ed section and content) Status Reason Specialty Diagnoses / Procedures Referred By Contact Referred To Contact Pending Review Diagnoses Left knee pain, unspecified chronicity Procedures XR BONE LENGTH STUDY Barak Hebert MD [address] [place], [place] [id number] Reason Comments Knee Pain Pain New Patient Status Reason Specialty Diagnoses / Procedures Referred By Contact Referred To Contact Closed Nuclear Medicine Diagnoses Pain in prosthetic joint, subsequent encounter Procedures NUC 3 PHASE LIMITED BONE SCAN IA BONE IMAGING, 3 PHASE Bhavana Addison, PRODUCT SUPPORT MANAGER-SUPERVISOR HAND SILVERING [address] [place] [address] [facility] [address] [place], [place] [phone] Status Reason Specialty Diagnoses / Procedures Referred By Contact Referred To Contact Closed Nuclear Medicine Diagnoses Pain in prosthetic joint, initial encounter Procedures NUC WBC STUDY IA ABSCESS IMAGING, WHOLE BODY Barak Hebert MD [address] [place] [address] [facility] [address] [place], [place] [phone] Status Reason Specialty Diagnoses / Procedures Referre d By Contact Referred To Contact Diagnoses Mechanical loosening of internal left knee prosthetic joint, 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, 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] Procedures IA REVISE KNEE JOINT REPLACE,ALL PARTS REVISION ARTHROPLASTY KNEE Barak Hebert MD [address] [place] [address] Reason Comments Post Op Visit Status Reason Specialty Diagnoses / Procedures Referred By Contact Referred To Contact New Request Diagnoses Hx of total knee arthroplasty, left Procedures XR KNEE LEFT 3 VIEWS Kaila Richmond PA-C [address] [place], [place] [phone] Status Reason Specialty Diagnoses / Procedures Referred By Contact Referred To Contact Closed Nuclear Medicine Diagnoses Pain in prosthetic joint, initial encounter Procedures NUC BONE MARROW LIMITED AREA IA BONE MARROW IMAGING, LTD Barak Hebert MD [address] [place] [id number] [facility] Nuclear Medicine [address] [place] [phone] Status Reason Specialty Diagnoses / Procedures Referred By Contact Referred To Contact Auth Not Needed Nuclear Medicine Diagnoses Pain in prosthetic joint, initial encounter Procedures NUC WBC STUDY IA ABSCESS IMAGING, WHOLE BODY Barak Hebert MD [address] [place], [place] [id number] [facility] [address] [place] [phone] Status Reason Specialty Diagnoses / Procedures Referred By Contact Referred To Contact New Request Diagnoses S/P total knee arthroplasty, left Procedures XR BONE LENGTH STUDY Barak Hebert MD [address] [place], [place] [phone] Specialty Diagnoses / Procedures Referred By Contac t Referred To Contact Diagnoses Hx of total knee arthroplasty, left Procedures XR KNEE LEFT 3 VIEWS Bhavana Addison, PRODUCT SUPPORT MANAGER-SUPERVISOR HAND SILVERING [address] [place] [id number] Referral ID Status Reason Start Date Expiration Date V isits Requested Visits Authorized [id number] New Request 10/22/2021 11/16/2022 1 1 Reason Comments Follow-up Reason Comments Pain Condition Update Specialty Diagnoses / Procedures Referred By Contac t Referred To Contact Diagnoses Bilateral thumb pain Procedures XR THUMB LEFT Gadiel Floyd MD [address] [place] [id number] Referral ID Status Reason Start Date Expiration Date V isits Requested Visits Authorized [id number] New Request 02/11/2022 03/08/2023 1 1 Reason Comments Pain Specialty Diagnoses / Procedures Referred By Contac t Referred To Contact Orthopaedic Surgery Diagnoses Bilateral thumb pain Barak Hebert MD [address] [place] [id number] Gadiel Floyd MD [address] [place] [id number] Referral ID Status Reason Start Date Expiration Date V isits Requested Visits Authorized [id number] New Request 12/17/2021 01/11/2023 1 1 Reason Comments Follow-up Follow Up- Bilat Bas al Joint Arthritis/ Last Injection: 02/17/22- Pain Scale: 2/10 Bilat Referral ID Status Reason Start Date Expiration Date V isits Requested Visits Authorized [id number] New Request 11/22/2023 12/16/2024 1 1 Reason Comments New Patient Visit Self /ref for sob on exertion Specialty Diagnoses / Procedures Referred By Contac t Referred To Contact Diagnoses Dyspnea on exertion Procedures ECG 12 Lead Adrien Foley, PRODUCT SUPPORT MANAGER-SUPERVISOR HAND SILVERING [address] [facility] [address], [address] [address] Phone: tel: fax: Referral ID Status Reason Start Date Expiration Date V isits Requested Visits Authorized [id number] Authorized 03/18/2025 03/18/2026 1 1 Reason Comments Follow-up Echo, stress, monito r test results Reason Comments ekg visit Specialty Diagnoses / Procedures Referred By Contac t Referred To Contact Diagnoses Paroxysmal atrial fibrillation (Multi) Procedures ECG 12 Lead Fidelina Jones MD [address] [facility] [address], [address] [address] Phone: tel: fax: Referral ID Status Reason Start Date Expiration Date V isits Requested Visits Authorized [id number] Authorized 05/02/2025 05/02/2026 1 1 Amaris Samayoa RN - 10/28/2020 2:35 PM NIVIAWhAmaris tubbs RN - 10/28/2020 12:50 PM EST Nursing Notes (unrecognized section and content) Patient ransferred to PACU via bed with this nurse and NETWORK CONTRACTOR. Bedside report given to ANOOP Law. Fire risk level of 2 determined during Time Out. ? Application site is dry prior to draping and use of surgical equipment. ? No pooling of prep solution around patient or surgical area. ? All prep materials have been removed from the OR prior to draping and use of surgical devices. Monitored by: S. McCunn, RN OR room temp: 62.2 OR room [...] in the discharge planning process with social science manager and the multidisciplinary team. Return to bay from PT. C/o pain 4 out of 10. Pain pill offered but Tylenol due. PT to take tylenol and save oxicodone for after lunch. Follow up phone call to [facility], who state that they can accept to start services tomorrow. Follow up call received from Suzy at [facility]. Referral for [facility] therapist, Santa to be made through [facility]. Instructed to request Santa for [...] PROCEDURE: 10/28/2020 ATTENDING PHYSICIAN: Barak Hebert M.D. APPRENTICE MACHINIST OUTSIDE: Bhavana Addison CNP. PREOPERATIVE DIAGNOSIS: Failed left [...] FLUIDS: Adequate. SPECIMENS: Include bone. INSTRUMENTATION USED: [employer] size 7 left CRS femoral component with [...] on the back table according to the electric motor repair supervisor s technique. They were then cemented into [...] the assistance of a skilled surgical services coordinator. A surgical services coordinator was medically necessary for positioning, retraction and [...] to return home with his spouse and [facility] through [facility], which he has used in the [...] bay 310. POST OPERATIVE/PROCEDURE NOTE López Cortés ([id number]) SURGEON Surgeon(s) and Role: * Barak eHbert MD - Primary APPRENTICE MACHINIST OUTSIDE MARK Richardson ANESTHESIOLOGIST NETWORK CONTRACTOR: Yusef Escobedo CRNA SURGICAL STAFF Catechist: Kerry Richter RN Nurse Practitioner: MARK Richardson Scrub Person: Andrew Moffett RN; Alyx Miller; Martha Rolon RN Duct Layer Supervisor Paperboard Machine Operator: Escobar Rodriguez Bin Filler: Efrem Bonner LPN PROCEDURE PERFORMED Procedure(s) (LRB): [...] Barak Hebert MD 10/28/2020 1301 Bhavana Addison APRN-SUPERVISOR HAND SILVERING October 28, 2020 2:39 PM CM met with patient this date to discuss post-surgical discharge plans. Patient states that he plans to return home with his spouse and [facility] after discharge for a left knee revision. He states that lives in [place] and would like to utilize [facility] in that area. He states that he has a wheeled walker and will bring it with him on the day of surgery. CM to continue to follow and assist with discharge plans. 10/02/20 0928 Information Source Information Source patient Contact Information Desizing Machine Back Tender Name Sun Lopez RN Case Manager's Living [...] Care Teams (unrecognized sec tion and content) Assistant Professor Of Economics Relationship Specialty Start Date End Date Tess Fuentes MD [address] [place] [address] PCP - General Family Medicine 09/11/20 Assistant Professor Of Economics Relationship Specialty Start Date End Date Tess Fuentes MD [address] [place] [address] PCP - General Family Medicine 09/11/20 Assistant Professor Of Economics Relationship Specialty Start Date End Date Tess Fuentes MD [address] [facility] [place] [address] [place] [address] PCP - General Family Medicine 09/11/20 Assistant Professor Of Economics Relationship Specialty Start Date End Date Tess Fuentes MD [address] [facility] [place] [place] [address] [place] [address] PCP - General Family Medicine 09/11/20 Assistant Professor Of Economics Relationship Specialty Start Date End Date Tess Fuentes MD [address] [facility] [place] [place] [address] [place] [address] PCP - General Family Medicine 09/11/20 Assistant Professor Of Economics Relationship Specialty Start Date End Date Tess Fuentes MD [address] [facility] [place] [place] [address] [place] [address] PCP - General Family Medicine 09/11/20 Assistant Professor Of Economics Relationship Specialty Start Date End Date Tess Fuentes MD [address] [facility] [place] [place] [address] [place] [address] PCP - General Family Medicine 09/11/20 Assistant Professor Of Economics Relationship Specialty Start Date End Date Tess Fuentes MD [address] [facility] [place] [place] [address] [place] [address] PCP - General Family Medicine 09/11/20 Assistant Professor Of Economics Relationship Specialty Start Date End Date Tess Fuentes MD [address] [facility] [place] [place] [address] [place] [address] PCP - General Family Medicine 09/11/20 Assistant Professor Of Economics Relationship Specialty Start Date End Date Tess Fuentes MD [address] [facility] [place] [place] [address] [place] [address] PCP - General Family Medicine 09/11/20 Team Status: Inactive Member Role Status Dates Hugh Alas MD FACS Attending Provider Active Start: February 28, 2024 End: February 28, 2024 Team Status: Inactive Member Role Status Dates Hugh Alas MD [facility] Attending Provider Active Start: August 29, 2024 End: August 29, 2024 Assistant Professor Of Economics Relationship Specialty Start Date End Date Tess Fuentes MD [address] [place] [address] PCP - General Family Medicine 03/14/25 Team [...] Provider Activ e Start: April 18, 2025 Assistant Professor Of Economics Relationship Specialty Start Date End Date Tess Fuentes MD [address] [facility] [place] [address] PCP - General Family Medicine 03/14/25 Assistant Professor Of Economics Relationship Specialty Start Date End Date Tess Fuentes MD [address] [place] [address] PCP - General Family Medicine 03/14/25 Team Status: Inactive Member Role Status Dates Hugh Alas MD FACS Attending Provider Active Start: May 22, 2025 End: May 22, 2025 Goals (unrecognized section and content) Goals [...] BE BASED ON THE PRIMARY CLINICAL RECORDS. [employer] provides no warranty or guarantee of the accuracy or completeness of information in this document.
[2025-07-31 14:30] LABS: Alanine Aminotransferase 31 U/L (16-63); Albumin Globulin Ratio 0.9; Albumin Level 3.4 g/dL (3.4-5.0); Alkaline Phosphatase 114 U/L (46-116); Anion Gap 12.0; Aspartate Amino Transferase 26 U/L (15-37); Blood Urea Nitrogen 20.0 mg/dL (7.0-18.0); Calcium 8.6 mg/dL (8.5-10.1); Carbon Dioxide 28.0 mmol/L (21.0-32.0); Chloride 106 mmol/L (98-107); Estimated GFR (African America 59 (>=60 mL/min/1.73m^2); Estimated GFR (Non-African Ame 49 (>=60 mL/min/1.73m^2); Globulin 3.8 g/dL; Glucose 109 mg/dL (74-106); Potassium 4.0 mmol/L (3.5-5.1); Sodium 142 mmol/L (136-145); Total Protein 7.2 g/dL (6.4-8.2)
== END 2025-07-31 13:46 | disposition home or self-care (01) ==
LOC: LAB 13:47
PROVIDERS: PCP Family Medicine; Visit Provider Family Medicine
DX: K21.9 Gastro-esophageal reflux disease without esophagitis (principal); I10 Essential (primary) hypertension; N40.0 Benign prostatic hyperplasia without lower urinary tract symptoms; N18.2 Chronic kidney disease, stage 2 (mild); Z12.5 Encounter for screening for malignant neoplasm of prostate
CPT/HCPCS: 36415; 80053; G0103